=== PATIENT | male | born 1970 | race Caucasian/White ===

== ENCOUNTER 2020-07-14 18:32 | Emergency (ER) | payer SELFPAY ==
--- OUTSIDE RECORDS SUMMARY | 2020-07-14 18:34 | XMS REPORT | Summary of Care ---
:1970 Author Organization [address] [address] Care Team Providers Name Role Phone Pcp, Does Not Have A Primary Care Provider Reason for Visit Reason Comments Rx Concern/Question New THMP/ADAP application up loaded into [employer] for processing Encounter Details Date Type Department Care Team Description 07/10/2020 Case Management [facility] Beatriz Su MA Rx Concern/Question Infectious [address] [place] [address] (New THMP/ADA P Diseases- [place] [address] [place] [address] into [employer] for [address], [address] [place] [address] Allergies Active Allergy Reactions Severity Noted Date Comments Codeine Unknown - See comments 06/08/2018 Told as kid, do not recall reaction. documented as of this encounter (statuses as of 07/10/2020) Medications Medication Sig Dispensed Refills Start Date End Date Status mupirocin 2 % nasal Use 0.5 g in 10 Tube 0 11/16/2018 Active ointmentIndications: each nostril Staph skin infection every 12 (twelve) hours. cephALEXin (KEFLEX) 500 Take 1 capsule 56 capsule 0 12/28/2018 Active mg capsuleIndications: by mouth 4 Staph skin infection (four) times daily. mupirocin 2 % Apply to 22 g 3 02/08/2019 Activ e ointmentIndications: area(s) 3 Multiple wounds of skin (three) times daily. ATORVASTATIN 40 mg TAKE 1 TABLET 90 tablet 1 03/08/2019 Active tabletIndications: HIV BY MOUTH AT (human immunodeficiency BEDTIME. virus infection) qpdgpoqap-wueyeksa-rrywq Take 1 tablet 90 tablet 1 07/05/2019 Active ov ala (BIKTARVY) by mouth daily. 50-200-25 mg tabletIndications: Staph skin infection documented as of this encounter (statuses as of 07/10/2020) Active Problems Problem Noted Date HIV (human immunodeficiency virus infection) 8 HLD (hyperlipidemia) 06/07/2018 documented as of this encounter (statuses as of 07/10/2020) Immunizations Name Administration Dates Next Due Influenza Virus Vaccine Quad .5 mL IM 11/16/2018 6+ MO Influenza Virus Vaccine Quad IM 3+ 07/05/2019, 09/21/2018 (D eferred: YRS Vaccine Unavailable) Pneumococcal 13 Conjugate, PCV13 03/29/2019 (Prevnar 13) Pneumococcal Polysaccharide, PPSV23 07/05/2019 (PNEUMOVAX) TDAP 09/21/2018 Twinrix (hep a/hep b) 07/05/2019, 11/16/2018, 09/21/2018 documented as of this encounter Social History Tobacco Use Types Packs/Day Years Used Date Current Every Day Smoker 1 Smokeless Tobacco: Current User Alcohol Use Drinks/Week oz/Week Comments Yes 12 pack beer mon thly Sex Assigned at Date Recorded Not on file documented as of this encounter Last Filed Vital Signs Not on filedocumented in this encounter Progress Notes Beatriz Su MA - 07/10/2020 5:34 PM CDTMet with client in clinic to complete new THMP/ADAP application & obtained provider signature onnew medication certification form. Client's previous THMP assistance lapsed while he was incarcerated. Prepared, scanned & uploaded new emergency application into [employer] for processing. Updated spreadsheet & notified THMP of upload. A copy of the upload notice has been filed in client's [facility] case management chart. A total of 60 minutes was taken to complete this encounter. documented in this encounter Plan of Treatment Date Type Specialty Care Team Description 01/08/2021 Office Visit Infectious Disease Gregorio Hanna MD [address] [place] [address] [phone] Health Maintenance Due Date Last Done Comments COLON CANCER SCREENING ANNUAL 2018 FIT/FOBT COLON CANCER SCREENING FIT DNA EVERY 2018 3 YEARS COLON CANCER SCREENING SIGMOIDOSCOPY 2018 EVERY 5 YEARS COLONOSCOPY 2018 Colorectal Cancer Screening 2018 Zoster Recombinant Vaccine (SHINGRIX) 2018 (1 of 2) INFLUENZA VACCINE (#1) 2020 07/05/2019, 11/16/2018, 2018 Depression Screening 07/10/2021 07/10/2020 PNEUMOCOCCAL 0-64 YEARS COMBINED 07/05/2024 07/05/2019, SERIES (3 of 3 - PPSV23) DTaP,Tdap,and Td Vaccines (2 - Td) 09/21/2028 09/21/2018 documented as of this encounter Results Not on filedocumented in this encounter Insurance Payer Benefit Plan / Subscriber ID Effective Dates Phone Addre ss Type Group [facility]DC[facility] [id number] 2020-Present [address] [place] [address] documented as of this encounter
--- OUTSIDE RECORDS SUMMARY | 2020-07-14 18:34 | XMS REPORT | Summary of Care ---
:1970 Author Organization [address] [address] Care Team Providers Name Role Phone Pcp, Does Not Have A Primary Care Provider Reason for Visit Reason Comments Error Encounter Details Date Type Department Care Team Description 07/09/2020 Case Management [facility] Infectious Del Lina Rabago RN Error Diseases- [place] [phone] Allergies Active Allergy Reactions Severity Noted Date [...] MOUTH AT (human immunodeficiency BEDTIME. virus infection) rnpzqmoxn-qmaeyetx-zhbbn Take 1 tablet 90 tablet 1 07/05/2019 [...] oz/Week Comments Yes 12 pack beer mon [facility] Sex Assigned at Date Recorded Not on file documented as of this encounter Last Filed Vital Signs Not on filedocumented in this encounter Progress Notes Lina Phelps RN - 07/09/2020 3:12 PM CDTError documented in this encounter Plan of Treatment Date Type Specialty Care Team Description 01/08/2021 Office Visit Infectious Disease Gregorio Hanna MD [address] [place] [address] [phone] Health Maintenance Due Date Last Done [...] Effective Dates Phone Addre ss Type Group [facility] TDCJ [id number] 2020-Present [address] [place] [address] documented as of this encounter
--- OUTSIDE RECORDS SUMMARY | 2020-07-14 18:34 | XMS REPORT | Summary of Care ---
:1970 Author Organization [address] [address] Care Team Providers Name Role Phone Pcp, Does Not Have A Primary Care Provider Reason for Visit Reason Comments Case Management may require RW enrollment Encounter Details Date Type Department Care Team Description 07/09/2020 Case Management [facility] Del Hima, Lina Case Cecilio kumar (january Infectious R, RN require RW Diseases- [address] enrollment ) [facility] [address] [place] [address] Drive, [address]th Floor [place] [phone] Allergies Active Allergy Reactions Severity Noted Date Comments Codeine Unknown - See comments 06/08/2018 Told as kid, do not recall reaction. documented as of this encounter (statuses as of 07/09/2020) Medications Medication Sig Dispensed Refills Start Date [...] MOUTH AT (human immunodeficiency BEDTIME. virus infection) issubkqen-urgstzsz-kqgab Take 1 tablet 90 tablet 1 07/05/2019 Active ov ala (BIKTARVY) by mouth daily. 50-200-25 mg tabletIndications: Staph skin infection documented as of this encounter (statuses as of 07/09/2020) Active Problems Problem Noted Date HIV (human immunodeficiency virus infection) 8 HLD (hyperlipidemia) 06/07/2018 documented as of this encounter (statuses as of 07/09/2020) Immunizations Name Administration Dates Next Due Influenza [...] oz/Week Comments Yes 12 pack beer mon [facility] Sex Assigned at Date Recorded Not on file documented as of this encounter Last Filed Vital Signs Not on filedocumented in this encounter Progress Notes Lina Phelps RN - 07/09/2020 3:37 PM CDTChart review for potential case management needs. Former RW client has appointment on 07/10 and mayneed to be enrolled into the program again,that is, if he does not have current coverage. ID Scheduling informed of patient's current RW status. 30 min taken documented in this encounter Plan of Treatment Date Type Specialty Care Team Description 07/10/2020 Office Visit Infectious Disease Grady John MD [address] [place] [address]. [place] [phone] Gregorio Hanna MD [address] [place] [phone] Health Maintenance Due Date Last Done Comments COLON CANCER SCREENING ANNUAL 2018 FIT/FOBT COLON CANCER SCREENING FIT DNA EVERY 2018 3 YEARS COLON CANCER SCREENING SIGMOIDOSCOPY 2018 EVERY 5 YEARS COLONOSCOPY 2018 Colorectal Cancer Screening 2018 Zoster Recombinant Vaccine (SHINGRIX) 2018 (1 of 2) INFLUENZA VACCINE (#1) 2020 07/05/2019, 11/16/2018, 2018 Depression Screening 08/16/2020 08/16/2019 PNEUMOCOCCAL 0-64 YEARS COMBINED 07/05/2024 07/05/2019, SERIES (3 of 3 - PPSV23) DTaP,Tdap,and Td Vaccines (2 - Td) 09/21/2028 09/21/2018 documented as of this encounter Results Not on filedocumented in this encounter Insurance Payer Benefit Plan / Subscriber ID Effective Dates Phone Addre ss Type Group [facility] [place] [id number] 2020-Present [address] [place] [address] documented as of this encounter
--- OUTSIDE RECORDS SUMMARY | 2020-07-14 18:34 | XMS REPORT | Continuity of Care Document ---
:1970 Author Organization [facility] t Address [address] [place] [address] Care Team Providers Name Role Phone Aristides Engel MD Attending Clinician Problems This patient has no known problems. Allergies, Adverse Reactions, Alerts This patient has no known allergies or adverse reactions. Medications This patient has no known medications. Procedures This patient has no known procedures. Encounters Start End Encounter Admission Attending Care Care Encounter Source Date/Time Date/Time Type Type Clinicians Facility Department ID 2020-07-10 2020-07-11 Office [facility] [id number] 10:10:38 14:26:09 Visit Charles Engel [id number] [facility] [id number] Results This patient has no known results.
--- OUTSIDE RECORDS SUMMARY | 2020-07-14 18:34 | XMS REPORT | Summary of Care ---
:1970 Author Organization [address] [address] Care Team Providers Name Role Phone Pcp, Does Not Have A Primary Care Provider Reason for Visit Reason Comments Case Management Completed re-enrollment in [facility] & med adherence Encounter Details Date Type Department Care Team Description 07/10/2020 Case Management [facility] Beatriz Su MA Case Management Infectious [address] [place] [address] (Completed Diseases- [facility] [place] [address] [facility] & [address] med adherenc e) [facility] 6th [place] [phone] Allergies Active Allergy Reactions Severity Noted Date [...] MOUTH AT (human immunodeficiency BEDTIME. virus infection) wccklklie-dmkgqbur-twyck Take 1 tablet 90 tablet 1 07/05/2019 [...] oz/Week Comments Yes 12 pack beer mon ly Sex Assigned at Date Recorded Not on file documented as of this encounter Last Filed Vital Signs Not on filedocumented in this encounter Progress Notes Beatriz Su MA - 07/10/2020 3:09 PM CDTMet with client in clinic to complete re-enrollment in the [facility] [facility] program. He was released from [facility] on 06/02/2020, has not received any care since that date. Dicussed supporting documentation needed to complete the re-enrollment process, as well as the fact that [facility] program staff are working off-site due to the current national health crisis. Client provided proof of residency, but did not have proof of $0 income at this visit. He has no way to provide documents remotely, offered emergency re-enrollment as an alternative, no documentation required. Client provided current demographic & income information, along with marital status & household size. He has no form of health insurance at this time. Obtained client signatures on all consents& acknowledgement forms and provided him with my contact information for other helpful area agencies. He states that he completed re-enrollment with [facility] earlier this week. Completed emergency re-enrollment form based on information provided. Client has no medical case management needs, updatedacuity = 5, he will be re-enrolled as "open" case management status. Discussed medication adherence; client reports no missed doses during the past 3 days, no missed doses during the past 30 days. Client is 100% compliant with current medication regimen. He received the 3-pill regimen equivalent to Biktarvy while he was incarcerated. Clinic provider informed me that client should continue the Biktarvy as previously prescribed. Client was funded for medication through [employer] while he was incarcerated, he has approximately 10 days of medication remaining. He was previously funded for medication through [facility]/ADAP program, however that assistance lapsed while he was incarcerated. Advised that I would submit a new application to [facility] electronically later today, current processing time is 10-14 business days, assisted client with obtaining an additional 7 days of Biktarvy until his new application is approved. Provided my contact information should he need further assistance. Re-enrollment documents scanned to [facility] program community recreation coordinator for update. A total of 90 minutes was taken to complete this encounter. documented in this encounter Plan of Treatment Date Type Specialty Care Team Description 01/08/2021 Office Visit Infectious Disease Gregorio Hanna MD [address] [place] [address] [phone] Health Maintenance Due Date Last Done [...] Effective Dates Phone Addre ss Type Group [facility] TDC[facility] [id number] 2020-Present [address] [place] [address] documented as of this encounter
--- OUTSIDE RECORDS SUMMARY | 2020-07-14 18:34 | XMS REPORT | Summary of Care ---
:1970 Author Organization [facility] Address [address] [place] [address] Care Team Providers Name Role Phone Correction, Dept Of Primary Care Provider Encounter Details Date Type Department Care Team Description 04/28/2020 Hospital Encounter [facility] [phone] [place] [address] [phone] Allergies Active Allergy Reactions Severity Noted Date Comments Codeine Unknown - See comments 06/08/2018 Told as kid, do not recall reaction. documented as of this encounter (statuses as of 04/29/2020) Medications Medication Sig Dispensed Refills Start Date [...] MOUTH AT (human immunodeficiency BEDTIME. virus infection) bqqcwgzgk-deszuehq-dbmst Take 1 tablet 90 tablet 1 07/05/2019 Active ov ala (BIKTARVY) by mouth daily. 50-200-25 mg tabletIndications: Staph skin infection documented as of this encounter (statuses as of 04/29/2020) Active Problems Problem Noted Date HIV (human immunodeficiency virus infection) 8 HLD (hyperlipidemia) 06/07/2018 documented as of this encounter (statuses as of 04/29/2020) Immunizations Name Administration Dates Next Due Influenza [...] Signs Not on filedocumented in this encounter Plan of Treatment Health Maintenance Due Date Last Done Comments [...] 09/21/2028 09/21/2018 documented as of this encounter Procedures Procedure Name Priority Date/Time Associated Diagnosis Comme nts XR CHEST 1 VW Routine 04/28/2020 8:26 AM PPD positive Results for this CDT procedure are i n the results section . documented in this encounter Results XR CHEST 1 VW (04/28/2020 8:26 AM CDT) Specimen Narrative Performed At EXAM: XR CHEST 1 VW PACS/VR/DOSE HISTORY: PPD+ COMPARISON: None. FINDINGS: The heart and great vessels are normal and the lungs a re well expanded and clear. They show nothing to suggest acti ve pulmonary tuberculosis. Procedure Note [facility], Radiant Results Inft User - 2019 8:31 AM CDT EXAM: XR CHEST 1 VW HISTORY: PPD+ COMPARISON: None. FINDINGS: The heart and great vessels are normal a nd the lungs are well expanded and clear. They show nothing to suggest acti ve pulmonary tuberculosis. 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
--- OUTSIDE RECORDS SUMMARY | 2020-07-14 18:34 | XMS REPORT | Summary of Care ---
:1970 Author Organization [address] [address] Care Team Providers Name Role Phone Pcp, Does Not Have A Primary Care Provider Correction, Dept Of Primary Care Provider Reason for Visit Reason Comments Follow-up Encounter Details Date Type Department Care Team Description 02/15/2020 Telephone [facility] Infectious Lina Merritt RN Follow-up Diseases- [address] [place] [address], 6th [address] [place], [place] [phone] Allergies Active Allergy Reactions Severity Noted Date Comments Codeine Unknown - See comments 06/08/2018 Told as kid, do not recall reaction. documented as of this encounter (statuses as of 05/27/2020) Medications Medication Sig Dispensed Refills Start Date [...] MOUTH AT (human immunodeficiency BEDTIME. virus infection) xqhjbjxmq-mkqxnlft-fvfsy Take 1 tablet 90 tablet 1 07/05/2019 Active ov ala (BIKTARVY) by mouth daily. 50-200-25 mg tabletIndications: Staph skin infection documented as of this encounter (statuses as of 05/27/2020) Active Problems Problem Noted Date HIV (human immunodeficiency virus infection) 8 HLD (hyperlipidemia) 06/07/2018 documented as of this encounter (statuses as of 05/27/2020) Immunizations Name Administration Dates Next Due Influenza [...] oz/Week Comments Yes 12 pack beer mon [facility] Sex Assigned at Date Recorded Not on file documented as of this encounter Last Filed Vital Signs Not on filedocumented in this encounter Miscellaneous Notes Telephone Encounter - Henna Jack RN - 05/27/2020 1:57 AM CDTSummary: RW Closure 0n 03/12, verified client continues to be incarcerated with no release date. Account closed at this time with the [facility] [facility] due to non compliance with rules of the program for enrollment. Multiple attempts made to contact client and inform them of enrollment documents needed for continued enrollment in the [facility] [facility] and to schedule an appointment without success. Account closed at this time but client is welcome to reapply fo services if needed in the future. Appeal letter sent with program contact information to reapply for services if needed in the future. 30 min taken. elephone Encounter - Lina Merritt RN - 02/19/2020 11:35 AM CDTClient's mother called in response to letter sent to Adeel, who has been incarcerated [facility] since July. Mother states client has had a lot of vomiting and a significant weight loss. Mother instructed to advise Adeel to put in sick call to discuss this and get substitute meds for biktarvy which will end. Mother states will advise him, she will call back for any issues that remainfor which i will see how we can assist but not in charge of his care. [facility] funding closed, client can return to program after release from skilled nursing as long as eligibility criteria still met. 30 minutes involved. documented in this encounter Plan of Treatment Health [...]
--- OUTSIDE RECORDS SUMMARY | 2020-07-14 18:34 | XMS REPORT | Summary of Care ---
:1970 Author Organization [facility] Address [address] [place] [address] Care Team Providers Name Role Phone Pcp, Does Not Have A Primary Care Provider Reason for Visit Reason Comments LAB WORK Encounter Details Date Type Department Care Team Description 07/10/2020 Ice Cream Scooper Visit [facility] Elisabeth Hanna MD [address] [place] [phone] HIV infection, unspecified symptom statu s; Clinical Laboratory [facility]-Lab Positive PPD - [address] [place] [phone] Allergies Active Allergy Reactions Severity Noted Date [...] MOUTH AT (human immunodeficiency BEDTIME. virus infection) ufjuzwgur-imkberuh-knmck Take 1 tablet 90 tablet 1 07/05/2019 [...] Signs Not on filedocumented in this encounter Nursing Notes Princess Jeevan Ho - 07/10/2020 12:15 PM CDT Venipuncture collection performed by clean technique on the right anticubitus. Total of 1 attempts were made. Slight pressure and a bandage/dressing were applied to the site(s). The patient experiencedno complications. The following specimens were processed according to instructions and sent to [facility] laboratories per lab order on 07/10/2020: LT BLUE SST 1 RED LAV 2 PPT DK GREEN (LiHep) DK GREEN (SodH) ORTIZ DK BLUE (K2) DK BLUE (S) ACD Blood Culture NIPT/NTD documented in this encounter Plan of Treatment Date Type Specialty Care Team Description 01/08/2021 Office Visit Infectious Disease Gregorio Hanna MD [address] [place] [address] NIKIA Friend [phone] Name Type Priority Associated Diagnoses Date/Ti me CBC WITH DIFF LAB Routine HIV infection, 07/10/2020 1 2:13 PM CDT unspecified symptom status COMP. 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
--- OUTSIDE RECORDS SUMMARY | 2020-07-14 18:35 | XMS REPORT | Summary of Care ---
:1970 Author Organization [facility] - [facility] Address [address] [place] [address] Care Team Providers Name Role Phone Pcp, Does Not Have A Primary Care Provider Reason for Visit Reason Comments Follow-up Encounter Details Date Type Department Care Team Description 07/10/2020 Office Visit [facility] Yonatan John MD [address] [place] [address]. [place] [address] HIV infection, unspecified symptom statu s (Primary Dx); Infectious Diseases- Gregorio Hanna MD [address] [place] [phone] Positive PPD; [place] GERD without esophagitis; [facility] Staph skin infection [address] [facility], [address]th [place] [address] Allergies Active Allergy Reactions Severity Noted Date Comments Codeine Unknown - See comments 06/08/2018 Told as kid, do not recall reaction. documented as of this encounter (statuses as of 07/11/2020) Medications Medication Sig Dispensed Refills Start End Date Status Date mupirocin 2 % nasal Use 0.5 g in 10 Tube 0 Active ointmentIndications: each nostril 9 Staph skin infection every 12 (twelve) hours. cephALEXin (KEFLEX) Take 1 56 capsule 0 Active 500 mg capsule by 9 capsuleIndications: mouth 4 Staph skin infection (four) times daily. mupirocin 2 % Apply to 22 g 3 Active ointmentIndications: area(s) 3 9 Multiple wounds of (three) skin times daily. ATORVASTATIN 40 mg TAKE 1 90 tablet 1 A ctive tabletIndications: TABLET BY 9 HIV (human MOUTH AT immunodeficiency BEDTIME. virus infection) pantoprazole 20 mg EC Take 1 30 tablet 0 Active tabletIndications: tablet by 0 GERD without mouth daily esophagitis before breakfast. glafmgvvp-wnrxzbir-ni Take 1 90 tablet 1 Active nofov ala (BIKTARVY) tablet by 0 50-200-25 mg mouth daily. tabletIndications: Staph skin infection ktlrjkako-jqmdndjd-vn Take 1 90 tablet 1 07/11/20 Discontinued nofov ala (BIKTARVY) tablet by 9 20 (Reorder) 50-200-25 mg mouth daily. tabletIndications: Staph skin infection documented as of this encounter (statuses as of 07/11/2020) Active Problems Problem Noted Date HIV (human immunodeficiency virus infection) 8 HLD (hyperlipidemia) 06/07/2018 documented as of this encounter (statuses as of 07/11/2020) Immunizations Name Administration Dates Next Due Influenza [...] Day Smoker 1 Smokeless Tobacco: Current User Tobacco Cessation: Ready to Quit: No; Co unseling Given: Yes Alcohol Use Drinks/Week oz/Week Comments Yes 12 pack beer mon thly Sex Assigned at Date Recorded Not on file documented as of this encounter Last Filed Vital Signs Vital Sign Reading Time Taken Comments Blood Pressure 109/66 07/10/2020 10:29 AM CDT Pulse 74 07/10/2020 10:29 AM CDT Temperature 36.2 C (97.1 F) 07/10/2020 10:29 AM CDT Respiratory Rate 18 07/10/2020 10:29 AM CDT Oxygen Saturation - - Inhaled Oxygen Concentration - - Weight 88.2 kg (194 lb 8 oz) 07/10/2020 10:29 AM CDT Height 185.4 cm (6' 1") 07/10/2020 10:29 AM CDT Body Mass Index 25.66 07/10/2020 10:29 AM CDT documented in this encounter Progress Notes Gregorio Hanna MD - 07/10/2020 10:30 AM CDT Date of service: 07/10/2020 Visit Type: Established HIV Outpatient CC: "I need follow up for my HIV" HPI Adeel Antoine is a 49 year old male here today for HIV care. Was last seen in clinic 08/16/19. Interval history: Patient reports since last appoint has been incarcerated for 9 months in which he had been taking Tivicay with TDF and 3TC. Today reports otherwise is feeling well. Reports 100% compliance with Biktarvy since he left [facility]. No fever, chills, malaise, weight loss or other constitutional symptoms. No CP, SOB, cough, nausea, vomiting or diarrhea. No rashes, skin lesions or LAD. He does endorse some acid reflux. PMH: Past Medical History: Diagnosis Date HIV (human immunodeficiency virus infection) HLD (hyperlipidemia) MEDICATIONS Current Outpatient Medications on File Prior to Visit Medication Sig Dispense Refill xcjfqvmgv-dxdyaznz-qhdmprl ala (BIKTARVY) 50-200-25 mg tablet Take 1 tablet by mouth daily. 90 tablet 1 ATORVASTATIN 40 mg tablet TAKE 1 TABLET BY MOUTH AT BEDTIME. 90 tablet 1 mupirocin 2 % ointment Apply to area(s) 3 (three) times daily. 22 g 3 cephALEXin (KEFLEX) 500 mg capsule Take 1 capsule by mouth 4 (four) times daily. 56 capsule 0 mupirocin 2 % nasal ointment Use 0.5 g in each nostril every 12 (twelve) hours. 10 Tube 0 No current facility-administered medications on file prior to visit. ALLERGIES Allergies Allergen Reactions Codeine Unknown - See comments Told as kid, do not recall reaction. SOCIAL HISTORY Social History Socioeconomic History Marital status: Single Spouse name: Not on file Number of children: Not on file Years of education: Not on file Highest education level: Not on file Occupational History Not on file Social Needs Financial resource strain: Not on file Food insecurity Worry: Not on file Inability: Not on file Transportation needs Medical: Not on file Non-medical: Not on file Tobacco Use Smoking status: Current Every Day Smoker Packs/day: 1.00 Smokeless tobacco: Current User Substance and Sexual Activity Alcohol use: Yes Comment: 12 pack beer monthly Drug use: Yes Comment: previous IVDA with meth, shared needles, 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 Sexual activity: Not Currently Partners: Female Lifestyle Physical activity Days per week: Not on file Minutes per session: Not on file Stress: Not on file Relationships Social connections Talks on phone: Not on file Gets together: Not on file Attends moravian service: Not on file Active member of club or organization: Not on file Attends meetings of clubs or organizations: Not on file Relationship status: Not on file Intimate partner violence Fear of current or ex partner: Not on file Emotionally abused: Not on file Physically abused: Not on file Forced sexual activity: Not on file Other Topics Concern Not on file Social History Narrative Not on file FAMILY HISTORY No recent sick contacts or TB exposure PHYSICAL EXAM Constitutional: alert and oriented x 4, no apparent distress. BP 109/66 | Pulse 74 | Temp 36.2 C (97.1 F) (Oral) | Resp 18 | Ht 6' 1" (1.854 m) | Wt 194 lb 8 oz (88.2 kg) | BMI 25.66 kg/m Eyes: EOMI, PERRLA, anicteric sclerae. Moist pink conjunctivae ENT: mild pharyngeal erythema CV: RRR, S1, S2 normal; no murmurs, rubs or gallops Respiratory: clear to auscultation bilaterally, normal respiratory effort GI: abdomen soft; non-tender; non-distended; normoactive bowel sounds Musculoskeletal: normal gait and station. No digital clubbing or cyanosis Skin: warm and dry. No rash, lesions or ulcers Neuro: No focal deficits LABORATORY HIV 1 by Real-Time PCR (no units) Date Value 07/05/2019 Not Detected CD4 Absolute (Cells/L) Date Value 07/05/2019 766 12/28/2018 783 06/08/2018 911 WBC (10*3/L) Date Value 07/10/2020 7.52 HGB (g/dL) Date Value 07/10/2020 10.7 (L) PLT (10*3/L) Date Value 07/10/2020 177 CREATININE (mg/dL) Date Value 07/10/2020 0.87 GLUCOSE (mg/dL) Date Value 07/10/2020 105 ALT(SGPT) (U/L) Date Value 11/16/2018 40 ALTv (U/L) Date Value 07/10/2020 18 AST(SGOT) (U/L) Date Value 07/10/2020 26 ALK PHOS (U/L) Date Value 07/10/2020 110 CHOL (mg/dL) Date Value 07/05/2019 96 (L) TRIG (mg/dL) Date Value 07/05/2019 153 HAV Total (no units) Date Value 09/21/2018 Positive HCV Ab (no units) Date Value 06/08/2018 Negative HCV Semi-Quantitative (no units) Date Value 06/08/2018 0.03 No results found for: SYPG ASSESSMENT Adeel Antoine is a 49 year old male with the following problems: HIV infection, stable, adequate response to HAART, HIV viral load undetectable, will need to order new labs GERD Positive PPD An EKG was obtained due to patient reporting symptoms of reflux, EKG was within normal limits. Patient to talk to aerospace project manager for re-enrolling in [facility] today.Will refill Biktarvy, check CBC, CMP, CD4, HIV VL. Moreover, patient reportedly developed a positive PPD within this interval of time, and had a chest X ray that was unremarkable. Will order a Quantiferon and evaluate need for starting treatment for LTBI in case positive. Discussed with ID Faculty Dr. John. PLAN Continue Biktarvy (refilled today) Pantoprazole 20 mg PO qAM for 30 days CBC, CMP, HIV VL, CD4 Quantiferon Gold Reviewed labs from last month which are within normal limits. Instructed patient to contact clinic or return if any new problems Discussed importance of compliance with meds and follow up visits RTC in 3 months --- Gregorio Irving M.D. PGY-4, Infectious Diseases Pager: [phone] Jocelyne Shaikh MA - 07/10/2020 10:30 AM CDT 49 year old male has been identified by and name. Previous/Current Encounter Diagnosis: ICD-10-CM ICD-9-CM 1. Positive PPD R76.11 795.51 2. HIV infection, unspecified symptom status B20 V08 12 Lead EKG was performed as ordered. The patient tolerated the procedure well. Dr. Irving was notified and provided with a copy of the EKG for review. documented in this encounter Plan of Treatment Date Type Specialty Care Team Description 01/08/2021 Office Visit Infectious Disease Gregorio Hanna MD [address] [place] [phone] Name Type Priority Associated Diagnoses Date/Ti me CD4 SUBSET ASSAY LAB Routine HIV infection, unspecifi ed 07/10/2020 12:13 PM CDT symptom status HIV1 BY REAL-TIME PCR LAB Routine HIV infection, unsp ecified 07/10/2020 12:13 PM CDT QUANT symptom status QUANTIFERON-TB ASSAY LAB Routine Positive PPD 020 12:13 PM CDT Name Type Priority Associated Diagnoses Order S chedule CD4 SUBSET ASSAY LAB Routine HIV infection, unspecifi ed Expected: 07/10/2020, symptom status Expires: 06/13 HIV1 BY REAL-TIME PCR LAB Routine HIV infection, unsp ecified Expected: 07/10/2020, QUANT symptom status Expires: 06/13 QUANTIFERON-TB ASSAY LAB Routine Positive PPD Expecte d: 07/10/2020, Expires: 2020 Health Maintenance Due Date Last Done Comments [...] 09/21/2018 documented as of this encounter Results COMP. METABOLIC PANEL (55085) (07/10/2020 12:13 PM CDT) [facility] nature NA 140 135 - 145 [facility] mmol/L SERVICES K 4.3 3.5 - 5.0 [facility] mmol/L SERVICES CL 102 98 - 108 mmol/L [facility] SERVICES CO2 TOTAL 30 23 - 31 mmol/L [facility] AGAP 8 2 - 16 [facility] BUN 15 7 - 23 mg/dL [facility] GLUCOSE 105 70 - 110 mg/dL [facility] CREATININE 0.87 0.60 - 1.25 [facility] mg/dL SERVICES TOTAL BILI 1.5 (H) 0.1 - 1.1 mg/dL [facility] SERVICES CALCIUM 9.0 8.6 - 10.6 [facility] mg/dL SERVICES T PROTEIN 7.3 6.3 - 8.2 g/dL [facility] SERVICES ALBUMIN 4.3 3.5 - 5.0 g/dL [facility] ALK PHOS 110 34 - 122 U/L [facility] ALTv 18 5 - 50 U/L [facility] AST(SGOT) 26 13 - 40 U/L [facility] SERVICES eGFR Calculation 92.5 mL/min/1.73m2 [facility] (Non- SERVICES [place]e) eGFR Calculation 112.1 mL/min/1.73m2 [facility] () SERVICES Specimen Blood - ARM, RIGHT Narrative Performed At Association of Glomerular Filtration Rate (GFR) and St aging [facility] SERVICES of Kidney Disease* + + +------- ------ + | GFR (mL/min/1.73 m2) | With Kidney Damage | Wi thout Kidney Damage + + +------- ------ + | >90 | Stage one | Normal + + +------- ------ + | 60-89 | Stage two | Decreased GFR + + +------- ------ + | 30-59 | Stage three | Stage three + + +------- ------ + | 15-29 | Stage four | Stage four + + +------- ------ + | <15 (or dialysis) | Stage five | Stage five + + +------- ------ + *Each stage assumes the associated GFR level has been in effect for at least three months. Stages 1 to 5, wit h or without kidney disease, indicate chronic kidney disease. Notes: Determination of stages one and two (with eGFR >59mL/min/1.73 m2) requires estimation of kidney damag e for at least three months as defined by structural or func tional abnormalities of the kidney, manifested by either: Pathological abnormalities or Markers of kidney damage (including abnormalities in the composition of the blo od or urine or abnormalities in imaging tests) . Performing Organization Address City/State/Zipcode Phone Number [facility] CLIA: [id number] [place], [place] [id number] [address] [place] [address] CBC WITH DIFF (07/10/2020 12:13 PM CDT) Pathologist Sig nature WBC 7.52 4.20 - 10.70 [facility] 10*3/L SERVICES RBC 3.16 (L) 4.26 - 5.52 [facility] 10*6/L SERVICES HGB 10.7 (L) 12.2 - 16.4 [facility] g/dL SERVICES HCT 35.0 (L) 38.4 - 49.3 % [facility] MCV 110.8 (H) 81.7 - 95.6 fL [facility] MCH 33.9 (H) 26.1 - 32.7 pg [facility] MCHC 30.6 (L) 31.2 - 35.0 [facility] g/dL SERVICES RDW-SD 63.7 (H) 38.5 - 51.6 fL [facility] SERVICES RDW-CV 15.6 (H) 12.1 - 15.4 % [facility] PLT 177 150 - 328 [facility] 10*3/L SERVICES MPV 9.4 (L) 9.8 - 13.0 fL [facility] SERVICES NRBC/100 WBC 0.0 0.0 - 10.0 /100 [facility] WBCs SERVICES NRBC x10^3 <0.01 10*3/L [facility] SERVICES GRAN MAT (NEUT) % 62.0 % [facility] IMM GRAN % 0.40 % [facility] LYMPH % 25.4 % [facility] MONO % 9.8 % [facility] EOS % 2.0 % [facility] SERVICES BASO % 0.4 % [facility] GRAN MAT x10^3(ANC) 4.66 1.99 - 6.95 [facility] 10*3/uL SERVICES IMM GRAN x10^3 0.03 0.00 - 0.06 [facility] 10*3/uL SERVICES LYMPH x10^3 1.91 1.09 - 3.23 [facility] 10*3/uL SERVICES MONO x10^3 0.74 0.36 - 1.02 [facility] 10*3/uL SERVICES EOS x10^3 0.15 0.06 - 0.53 [facility] 10*3/uL SERVICES BASO x10^3 0.03 0.01 - 0.09 [facility] 10*3/uL SERVICES Specimen Blood - ARM, RIGHT Performing Organization Address City/State/Zipcode Phone Number [facility] CLIA: [id number] [place] [address] [place] [address] documented in this encounter Visit Diagnoses Diagnosis HIV infection, unspecified symptom statu s - Primary 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
--- OUTSIDE RECORDS SUMMARY | 2020-07-14 18:35 | XMS REPORT | Summary of Care ---
:1970 Author Organization [facility] - [facility] Address [address] [place] [address] Care Team Providers Name Role Phone Pcp, Does Not Have A Primary Care Provider Reason for Visit Reason Comments Follow-up Encounter Details Date Type Department Care Team Description 07/10/2020 Office Visit [facility] Yonatan John MD [address] [place] [address]. [place] [phone] HIV infection, unspecified symptom statu s (Primary Dx); Infectious Diseases- Grgeorio Hanna MD [address] [place] [phone] Positive PPD; [place] GERD without esophagitis; [facility] Staph skin infection [address] [facility], [address] [place] [address] Allergies Active Allergy Reactions Severity [...] GERD without mouth daily esophagitis before breakfast. oyocxftby-wukwisqa-ix Take 1 90 tablet 1 Active nofov ala (BIKTARVY) tablet by 0 50-200-25 mg mouth daily. tabletIndications: Staph skin infection rwylbekoe-qyamzsbb-en Take 1 90 tablet 1 07/11/20 Discontinued [...] 100% compliance with Biktarvy since he left [facility]. No fever, chills, malaise, weight loss or other constitutional symptoms. No CP, SOB, cough, nausea, vomiting or diarrhea. No rashes, skin lesions or LAD. He does endorse some acid reflux. PMH: Past Medical History: Diagnosis Date HIV (human immunodeficiency virus infection) HLD (hyperlipidemia) MEDICATIONS Current Outpatient Medications on File Prior to Visit Medication Sig Dispense Refill scpojvpzt-vkgyypea-dkqarmo ala (BIKTARVY) 50-200-25 mg tablet Take 1 [...] file Gets together: Not on file Attends christianity service: Not on file Active member of [...] within normal limits. Patient to talk to software developer manager for re-enrolling in [facility] today.Will refill Biktarvy, check CBC, CMP, [...] Gregorio Irving M.D. PGY-4, Infectious Diseases Pager: [phone] Jocelyne Shaikh MA - 07/10/2020 10:30 AM [...] Office Visit Infectious Disease Gregorio Hanna MD [address] [place] [phone] Name Type Priority Associated Diagnoses Date/Ti [...] of this encounter Results COMP. METABOLIC PANEL (79511) (07/10/2020 12:13 PM CDT) [facility] nature NA 140 135 - 145 [facility] mmol/L SERVICES K 4.3 3.5 - 5.0 [facility] mmol/L SERVICES CL 102 98 - 108 mmol/L [facility] SERVICES CO2 TOTAL 30 23 - 31 mmol/L [facility] SERVICES AGAP 8 2 - 16 [facility] SERVICES BUN 15 7 - 23 mg/dL [facility] SERVICES GLUCOSE 105 70 - 110 mg/dL [facility] CREATININE 0.87 0.60 - 1.25 [facility] mg/dL SERVICES TOTAL BILI 1.5 (H) 0.1 - 1.1 mg/dL [facility] SERVICES CALCIUM 9.0 8.6 - 10.6 [facility] mg/dL SERVICES T PROTEIN 7.3 6.3 - 8.2 g/dL [facility] SERVICES ALBUMIN 4.3 3.5 - 5.0 g/dL [facility] SERVICES ALK PHOS 110 34 - 122 U/L [facility] ALTv 18 5 - 50 U/L [facility] AST(SGOT) 26 13 - 40 U/L [facility] SERVICES eGFR Calculation 92.5 mL/min/1.73m2 [facility] (Non- SERVICES Indian) eGFR Calculation 112.1 mL/min/1.73m2 [facility] () SERVICES Specimen Blood - ARM, RIGHT Narrative Performed At Association of Glomerular Filtration Rate (GFR) and St aging [facility] of Kidney Disease* + [...] . Performing Organization Address City/State/Zipcode Phone Number [facility] CLIA: [id number] [place], [place] [id number] [address] [place] [address] CBC WITH DIFF (07/10/2020 12:13 PM CDT) [...] RIGHT Performing Organization Address City/State/Zipcode Phone Number [facility] CLIA: [id number] [place] [address] [place] [address] documented in this encounter Visit Diagnoses Diagnosis HIV infection, unspecified symptom statu s - Primary 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
--- OUTSIDE RECORDS SUMMARY | 2020-07-14 18:35 | XMS REPORT | Summary of Care ---
:[address] [facility] Address [address] [place] [id number] Care Team Providers Name Role Phone Pcp, Does Not Have A Primary Care Provider Reason for Visit Reason Comments Follow-up Encounter Details Date Type Department Care Team Description 07/10/2020 Office Visit [facility] Yonatan John MD [address] [place] [address]. [place] [address] HIV infection, unspecified symptom statu s (Primary Dx); Infectious Diseases- Gregorio Hanna MD [address] [place] [phone] Positive PPD; [place] GERD without esophagitis; [facility] Staph skin infection [address] [facility], [address]th [place] [address] Allergies Active Allergy Reactions Severity [...] GERD without mouth daily esophagitis before breakfast. azeidnpik-qowroqks-ly Take 1 90 tablet 1 Active nofov ala (BIKTARVY) tablet by 0 50-200-25 mg mouth daily. tabletIndications: Staph skin infection brfscdsbh-jguiisgp-ah Take 1 90 tablet 1 07/11/20 Discontinued [...] CDT documented in this encounter Progress Notes Yonatan John MD - 07/10/2020 10:30 AM CDTI personally examined the patient on 07/10/[address] Irving's note as written. I actively participated in the decision-making process. Please see the fellow's note for additional details. Gregorio Hanna MD - 07/10/2020 10:30 AM [...] 100% compliance with Biktarvy since he left [facility]. No fever, chills, malaise, weight loss or other constitutional symptoms. No CP, SOB, cough, nausea, vomiting or diarrhea. No rashes, skin lesions or LAD. He does endorse some acid reflux. PMH: Past Medical History: Diagnosis Date HIV (human immunodeficiency virus infection) HLD (hyperlipidemia) MEDICATIONS Current Outpatient Medications on File Prior to Visit Medication Sig Dispense Refill srnwlncbh-mqpnshsz-ypqgkpu ala (BIKTARVY) 50-200-25 mg tablet Take 1 [...] file Gets together: Not on file Attends restorationism service: Not on file Active member of [...] within normal limits. Patient to talk to manager willow for re-enrolling in [facility] today.Will refill Biktarvy, check CBC, CMP, CD4, [...] Gregorio Irving M.D. PGY-4, Infectious Diseases Pager: [phone] Jocelyne Shaikh MA - 07/10/2020 10:30 AM [...] EKG for review. documented in this encounter Miscellaneous Notes Addendum Note - Apolonia Mahoney RN - 07/10/2020 10:30 AM CDT Addended by: APOLONIA MAHONEY on: 07/11/2020 02:26 PM Modules accepted: Orders documented in this encounter Plan of Treatment Date Type Specialty Care Team Description 01/08/2021 Office Visit Infectious Disease Gregorio Hanna MD [address] [place] [phone] Name Type Priority Associated Diagnoses Date/Ti me HIV1 BY REAL-TIME PCR LAB Routine HIV infection, unsp ecified 07/10/2020 12:13 PM CDT QUANT symptom status [facility]ER[facility]-TB ASSAY LAB Routine Positive PPD 020 12:13 PM CDT Name Type Priority Associated Diagnoses Order S chedule HIV1 BY REAL-TIME LAB Routine HIV infection, Expected : PCR QUANT unspecified symptom 07/10/20 20, Expires: status 07/10/2021 [facility]ER[facility]-TB LAB Routine Positive PPD Expected: ASSAY 07/10/2020, Exp ires: 07/10/2021 EKG-12 LEAD ROUTINE HEART STATION Routine GERD without Ordered : 07/11/2020 esophagitis Health Maintenance Due Date Last Done Comments [...] 09/21/2018 documented as of this encounter Results CD4 SUBSET ASSAY (07/10/2020 12:13 PM CDT) Pathologist Sig nature CD4 % 42 31 - 60 % [facility] CD4 Absolute 846 410-1,590 Cells/L [facility] JERILYN Specimen Blood - ARM, RIGHT Performing Organization Address City/State/Zipcode Phone Number [facility] CLIA: [id number] [place] [address] [place] [address] COMP. METABOLIC PANEL (73739) (07/10/2020 12:13 PM CDT) Pathologist Sig nature NA 140 135 - 145 [facility] mmol/L SERVICES K 4.3 3.5 - 5.0 [facility] mmol/L SERVICES CL 102 98 - 108 mmol/L [facility] CO2 TOTAL 30 23 - 31 mmol/L [facility] AGAP 8 2 - 16 [facility] BUN 15 7 - 23 mg/dL [facility] GLUCOSE 105 70 - 110 mg/dL [facility] CREATININE 0.87 0.60 - 1.25 [facility] mg/dL SERVICES TOTAL BILI 1.5 (H) 0.1 - 1.1 mg/dL [facility] CALCIUM 9.0 8.6 - 10.6 [facility] mg/dL SERVICES T PROTEIN 7.3 6.3 - 8.2 g/dL [facility] ALBUMIN 4.3 3.5 - 5.0 g/dL [facility] ALK PHOS 110 34 - 122 U/L [facility] ALTv 18 5 - 50 U/L [facility] AST(SGOT) 26 13 - 40 U/L [facility] eGFR Calculation 92.5 mL/min/1.73m2 [facility] (Non- SERVICES [place]) eGFR Calculation 112.1 mL/min/1.73m2 [facility] () SERVICES Specimen Blood - ARM, RIGHT Narrative Performed At Association of Glomerular Filtration Rate (GFR) and St aging [facility] of Kidney Disease* + + [...] . Performing Organization Address City/State/Zipcode Phone Number [facility] CLIA: [id number] [place] [address] [place] [address] CBC WITH DIFF (07/10/2020 12:13 PM CDT) [facility] frannie WBC 7.52 4.20 - 10.70 [facility] 10*3/L SERVICES RBC 3.16 (L) 4.26 - 5.52 [facility] 10*6/L SERVICES HGB 10.7 (L) 12.2 [...] RIGHT Performing Organization Address City/State/Zipcode Phone Number [facility] CLIA: [id number] [place] [address] [place], [place] [address]vd documented in this encounter Visit Diagnoses Diagnosis HIV infection, unspecified symptom statu s - Primary 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
[2020-07-14] MEDS ORDERED: ONDANSETRON 4 MG/2 ML VIAL ONE (19:02)
[2020-07-14] MEDS ORDERED: MORPHINE 4 MG/ML SYR ONE (19:02)
[2020-07-14 19:16] LABS: Absolute Lymphocytes (CBC) 3.3 K/uL (0.7-4.9); Basophils % 0.5 % (0-1.3); Hematocrit 35.1 % (39.6-49.0); Lymphocytes % 36.3 % (15.3-44.8); MPV 7.7 fL (7.6-11.3); RBC Red Blood Cell Count 3.43 M/uL (4.33-5.43)
[2020-07-14] MEDS ORDERED: NA CHLORIDE 0.9% 1,000 ML ONE (19:24)
[2020-07-14] MEDS ORDERED: FENTANYL CITR 100 MCG/2 ML ONE (19:24)
[2020-07-14 19:27] LABS: Bilirubin Direct 0.1 mg/dL (0-0.2); Bilirubin Total 0.5 mg/dL (0.2-1.0); Potassium 4.1 mmol/L (3.5-5.1); Protein, Total 7.8 g/dL (6.4-8.2)
[2020-07-14] MEDS ORDERED: HYDROMORPHONE HCL 1 MG/ML INJ ONE (19:41)
[2020-07-14] MEDS ORDERED: KETOROLAC 30 MG/ML INJ ONE (19:41)
--- NOTE | 2020-07-14 20:18 | RAD REPORT ---
EXAM DESCRIPTION: CT - Stone Protocol - 07/14/2020 7:53 pm CLINICAL HISTORY: FLANK PAIN, right-sided with radiation into the right lower quadrant and right magdaleno in COMPARISON: <Comparisons> TECHNIQUE: Axial 5 mm thick images were obtained without oral or IV contrast. The akzpj-qw-mzvo span s the entirety of the system including uppermost abdomen and lung bases. All CT scans are performed using dose optimization technique as appropriate and may include automated exposure control or mA/KV adjustment according to patient size. FINDINGS: Hydronephrosis of the right pelvis and calices present rddo-dw-mrgtwbrp in severity. There is dilatation of the right proximal ureter. In the right mid ureter approximately L4 level there is faint 2 millimeter area of mineralization less dense than typically seen for a ureteral calculus. Dis jozef to this area there is no hydronephrosis. No nonobstructing calculi seen. No suspicious renal mass es. Isodense masses and pyelonephritis are not excluded on a stone protocol CT scan. No significant a drenal finding. No urinary bladder suspicious finding. Imaged portions of the liver, spleen and pancreas show no suspicious findings on non-contrast imaging . No gallbladder or biliary tree abnormality identified. No suspicious bowel findings. Appendectomy clips are present. No active bowel process. No hernia, mass or bulky lymphadenopathy noted. No free air, free fluid or inflammatory stranding. No significant bony abnormality. IMPRESSION: Mild to moderate hydronephrosis of the pelvis, calices and proximal ureter down to appro ximately L4 level. No dense stone identified. There is faint 2 millimeter area of mineralization or increased density in the ureter likely source of obstruction. This could be a faint kidney stone or possibly inflammatory debris or blood. Isodense masses and pyelonephritis are not excluded on stone protocol technique.
[2020-07-14 20:53] LABS: Urine Bacteria <20 /HPF (NONE SEEN); Urine Culture Reflex Order NOT NEEDED; Urine Mucus 1+ /HPF (NONE SEEN); Urine RBC 20-50 /HPF (NONE SEEN)
[2020-07-14 20:53] LABS: Urine Blood 3+ (NEG); Urine Glucose NEGATIVE (NEG); Urine Protein NEGATIVE (NEG); Urine Specific Gravity >1.030 (1.005-1.030)
--- NOTE | 2020-07-14 21:06 | EDPHYS ---
Physician Documentation [facility] Name: Adeel Antoine Age: 50 yrs Sex: Male : 1970 Arrival Date: 07/14/2020 Time: 18:34 Bed 8 Private MD: ED Physician Osvaldo Rudolph HPI: 07/14 18:49 This 50 yrs old Male presents to ER via Wheelchair with complaints of pm1 Abdominal Pain, Groin Pain. 18:49 The patient presents with pain that is acute, with no known mechanism of injury. The pm1 symptoms are located in the right flank pain. Onset: The symptoms/episode began/occurred today. right groin. Associated signs and symptoms: Pertinent positives: nausea, vomiting, Pertinent negatives: chest pain, dysuria, fever, urinary retention, shortness of breath. The problem was sustained from unknown cause. Modifying factors: The patient symptoms are alleviated by nothing, the patient symptoms are aggravated by nothing. Severity of symptoms: in the emergency department the symptoms are actually worse. The patient has not experienced similar symptoms in the past. Historical: - Allergies: 18:43 No Known Allergies; sv - PMHx: 18:43 HIV; sv - Immunization history:: Adult Immunizations unknown. - Social history:: Smoking status: Patient reports the use of cigarette tobacco products, unknown amount. ROS: 18:49 Constitutional: Negative for fever, chills, and weight loss, Cardiovascular: Negative pm1 for chest pain, palpitations, and edema, Respiratory: Negative for shortness of breath, cough, wheezing, and pleuritic chest pain. 18:49 : Negative for injury, bleeding, discharge, and swelling, MS/Extremity: Negative for injury and deformity, Skin: Negative for injury, rash, and discoloration, Neuro: Negative for headache, weakness, numbness, tingling, and seizure. 18:49 Abdomen/GI: Positive for nausea and vomiting, Negative for diarrhea. 18:49 Back: Positive for flank pain, on the right. Exam: 18:49 Constitutional: This is a well developed, well nourished patient who is awake, alert, pm1 and in no acute distress. Head/Face: Normocephalic, atraumatic. 18:49 Abdomen/GI: Soft, non-tender, with normal bowel sounds. No distension or tympany. No guarding or rebound. No evidence of tenderness throughout. 18:49 Skin: Warm, dry with normal turgor. Normal color with no rashes, no lesions, and no evidence of cellulitis. MS/ Extremity: Pulses equal, no cyanosis. Neurovascular intact. Full, normal range of motion. 18:49 Cardiovascular: Exam negative for acute changes, Rate: normal, Rhythm: regular, Pulses: no pulse deficits are appreciated. 18:49 Respiratory: Exam negative for acute changes, respiratory distress, shortness of breath. 18:49 Back: CVA tenderness, that is moderate, is noted on the right. 18:49 Neuro: Exam negative for acute changes, Orientation: is normal, Mentation: is normal, Motor: is normal, moves all fours. Vital Signs: 18:47 BP 144 / 97; Pulse 86; Resp 30; Pulse Ox 100% ; sv 20:10 BP 106 / 68; Pulse 63; Resp 16; Pulse Ox 95% ; Pain 3/10; wh 21:25 BP 141 / 92; Pulse 80; Resp 18; Pulse Ox 95% on R/A; Pain 0/10; wh MDM: 18:46 Patient medically screened. [facility] 21:05 Data reviewed: vital signs. Data interpreted: Pulse oximetry: on room air is 95 %. pm1 Interpretation: normal. 21:05 Counseling: I had a detailed discussion with the patient and/or guardian regarding: the pm1 historical points, exam findings, and any diagnostic results supporting the discharge/admit diagnosis, lab results, radiology results, the need for outpatient follow up, a urologist, to return to the emergency department if symptoms worsen or persist or if there are any questions or concerns that arise at home. 21:20 ED course: Patient 0/10 pain and is happy with the care received. Therefore will pm1 discharge to home. 07/14 18:49 Order name: Basic Metabolic Panel; Complete Time: 19:39 pm1 07/14 18:49 Order name: CBC with Diff; Complete Time: 19:25 pm1 07/14 18:49 Order name: Hepatic Function; Complete Time: 19:39 pm1 07/14 18:49 Order name: Lipase; Complete Time: 19:39 pm1 07/14 18:49 Order name: Urine Microscopic Only; Complete Time: 21:05 pm1 07/14 20:46 Order name: Urine Dipstick--Ancillary (enter results); Complete Time: 21:05 mw2 07/14 18:49 Order name: CT Stone Protocol; Complete Time: 20:25 pm1 07/14 18:49 Order name: IV Saline Lock; Complete Time: 18:51 pm1 07/14 18:49 Order name: Labs collected and sent; Complete Time: 18:51 pm1 07/14 18:49 Order name: Urine Dipstick-Ancillary (obtain specimen); Complete Time: 20:44 pm1 Administered Medications: 18:51 Drug: Zofran (Ondansetron) 4 mg Route: IVP; Site: right forearm; em 19:18 Follow up: Response: No adverse reaction; Nausea is decreased 18:52 Drug: morphine 4 mg Route: IVP; Site: right forearm; em 19:17 Follow up: Response: No adverse reaction; Pain is unchanged, physician notified; RASS: Alert and Calm (0) 19:17 Drug: NS 0.9% 1000 ml Route: IV; Rate: 1000 ml; Site: right forearm; wh 20:43 Follow up: Response: No adverse reaction; IV Status: Completed infusion 19:17 Drug: fentaNYL (PF) 50 mcg Route: IVP; Site: right forearm; wh 20:43 Follow up: Response: No adverse reaction; Pain is decreased; RASS: Alert and Calm (0) 19:31 Drug: TORadol 30 mg Route: IVP; Site: right forearm; rv 20:43 Follow up: Response: No adverse reaction; Pain is decreased 19:32 Drug: Dilaudid 1 mg {Note: rass 0.} Route: IVP; Site: right forearm; rv 20:43 Follow up: Response: No adverse reaction; Pain is decreased; RASS: Alert and Calm (0) 21:23 Drug: Flomax 0.4 mg Route: PO; 21:24 Follow up: Response: No adverse reaction 21:24 Drug: Cipro 500 mg Route: PO; 21:25 Follow up: Response: No adverse reaction Disposition: 07/15 06:24 Co-signature as Attending Physician, Osvaldo GORE I agree with the assessment and nichole plan of care. Disposition: 07/14/20 21:06 Discharged to Home. Impression: Hydronephrosis with renal and ureteral calculous obstruction. - Condition is Stable. - Discharge Instructions: Kidney Stones, Dietary Guidelines to Help Prevent Kidney Stones. - Prescriptions for Zofran ODT 4 mg Oral tablet,disintegrating - place 1 tablet by TRANSLINGUAL route every 8 hours As needed; 12 tablet. Tylenol- Codeine #3 300-30 mg Oral Tablet - take 2 tablets by ORAL route every 6 hours As needed; 20 tablet. Flomax 0.4 mg Oral Capsule, Sust. Release 24 hr - take 1 capsule by ORAL route once daily 1/2 hour following the same meal each day; 10 capsule. Cipro 500 mg Oral Tablet - take 1 tablet by ORAL route every 12 hours for 7 days; 14 tablet. - Medication Reconciliation Form, Thank You Letter, Antibiotic Education, Prescription Opioid Use form. - Follow up: Emergency Department; When: As needed; Reason: Worsening of condition. Follow up: Private Physician; When: 2 - 3 days; Reason: Recheck today's complaints, Continuance of care, Re-evaluation by your physician. Follow up: Igor Hollis MD; When: 2 - 3 days; Reason: Recheck today's complaints, Continuance of care, Re-evaluation by your physician. - Problem is new. - Symptoms have improved. 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 Impression: Hydronephrosis with renal and pm1 ureteral calculous obstruction. Condition is Stable. Forms are Medication Reconciliation Form, Thank You Letter, Antibiotic Education, Prescription Opioid Use. Follow up: Emergency Department; When: As needed; Reason: Worsening of condition. Follow up: Private Physician; When: 2 - 3 days; Reason: Recheck today's complaints, Continuance of care, Re-evaluation by your physician. Problem is new. Symptoms have improved. pm1 21:27 21:07 07/14/2020 21:06 Discharged to Home. Impression: Hydronephrosis with renal and wh ureteral calculous obstruction. Condition is Stable. Discharge Instructions: Kidney Stones, Dietary Guidelines to Help Prevent Kidney Stones. Forms are Medication Reconciliation Form, Thank You Letter, Antibiotic Education, Prescription Opioid Use. Follow up: Emergency Department; When: As needed; Reason: Worsening of condition. Follow up: Private Physician; When: 2 - 3 days; Reason: Recheck today's complaints, Continuance of care, Re-evaluation by your physician. Follow up: Igor Hollis; When: 2 - 3 days; Reason: Recheck today's complaints, Continuance of care, Re-evaluation by your physician. Problem is new. Symptoms have improved. pm1
--- NOTE | 2020-07-14 21:06 | ER ---
Nurse's Notes [facility] Name: Adele Antoine Age: 50 yrs Sex: Male : 1970 Arrival Date: 07/14/2020 Time: 18:34 Bed 8 Private MD: Diagnosis: Hydronephrosis with renal and ureteral calculous obstruction Presentation: 07/14 18:43 Chief complaint: Patient states: right flank pain with radiation to the RLQ and right sv groin. Coronavirus screen: Client denies travel out of the [place] in the last 14 days. At this time, the client does not indicate any symptoms associated with coronavirus-19. Ebola Screen: No symptoms or risks identified at this time. Risk Assessment: Do you want to hurt yourself or someone else? Patient reports no desire to harm self or others. Onset of symptoms was July 14, 2020. 18:43 Method Of Arrival: Wheelchair sv 18:43 Acuity: JEREMIAS 2 sv 19:15 Initial Sepsis Screen: Does the patient meet any 2 criteria? No. Patient's initial sepsis screen is negative. Does the patient have a suspected source of infection? Yes: Acute abdominal pain. Triage Assessment: 18:43 General: Appears in no apparent distress. uncomfortable, Behavior is cooperative, sv appropriate for age, restless. Neuro: Level of Consciousness is awake, alert, obeys commands, Gait is steady. Respiratory: Respiratory effort is even, unlabored. Historical: - Allergies: 18:43 No Known Allergies; sv - PMHx: 18:43 HIV; sv - Immunization history:: Adult Immunizations unknown. - Social history:: Smoking status: Patient reports the use of cigarette tobacco products, unknown amount. Screenin:52 Abuse screen: Denies threats or abuse. Nutritional screening: No deficits noted. em Tuberculosis screening: No symptoms or risk factors identified. Fall Risk None identified. Assessment: 19:15 General: Appears uncomfortable, Behavior is listless. Pain: Complains of pain in right wh low back Pain radiates to right lower quadrant Pain currently is 9 out of 10 on a pain scale. Neuro: Level of Consciousness is awake, alert, obeys commands, Oriented to person, place, time, situation, Appropriate for age. Cardiovascular: Heart tones S1 S2. Respiratory: Airway is patent Respiratory effort is even, unlabored, Respiratory pattern is regular, symmetrical, Breath sounds are clear bilaterally. GI: Abdomen is flat, non-distended, Bowel sounds present X 4 quads. Abd is soft Abdomen is tender to palpation Reports lower abdominal pain. : No signs and/or symptoms were reported regarding the genitourinary system. EENT: No signs and/or symptoms were reported regarding the EENT system. Derm: Skin is intact, is healthy with good turgor, Skin is pink, warm \T\ dry. normal. Musculoskeletal: Circulation, motion, and sensation intact. 20:00 Reassessment: Patient appears in no apparent distress at this time. No changes from previously documented assessment. Patient and/or family updated on plan of care and expected duration. Pain level reassessed. Patient is alert, oriented x 3, equal unlabored respirations, skin warm/dry/pink. 21:05 Reassessment: Patient appears in no apparent distress at this time. Patient and/or family updated on plan of care and expected duration. Pain level reassessed. Patient is alert, oriented x 3, equal unlabored respirations, skin warm/dry/pink. Patient states feeling better. Patient states symptoms have improved. Vital Signs: 18:47 BP 144 / 97; Pulse 86; Resp 30; Pulse Ox 100% ; sv 20:10 BP 106 / 68; Pulse 63; Resp 16; Pulse Ox 95% ; Pain 3/10; wh 21:25 BP 141 / 92; Pulse 80; Resp 18; Pulse Ox 95% on R/A; Pain 0/10; ED Course: 18:34 Patient arrived in ED. mr 18:40 Liam Zendejas RN is Primary Nurse. em 18:43 Percy Contreras NP is PHCP. pm1 18:43 Osvaldo Rudolph MD is Attending Physician. pm1 18:43 Triage completed. sv 18:43 Arm band placed on. sv 18:50 Initial lab(s) drawn, by me, sent to lab. Inserted saline lock: 20 gauge in right em antecubital area, using aseptic technique. Blood collected. 18:52 Patient has correct armband on for positive identification. Placed in gown. Bed in low em position. Call light in reach. Pulse ox on. NIBP on. 19:34 Primary Nurse role handed off by Liam Zendejas, RN mw2 19:48 Laura Pascual is Primary Nurse. 19:53 CT Stone Protocol In Process Unspecified. EDMS 21:07 Igor Hollis MD is Referral Physician. pm1 21:26 No provider procedures requiring assistance completed. IV discontinued, intact, wh bleeding controlled, No redness/swelling at site. Administered Medications: 18:51 Drug: Zofran (Ondansetron) 4 mg Route: IVP; Site: right forearm; em 19:18 Follow up: Response: No adverse reaction; Nausea is decreased 18:52 Drug: morphine 4 mg Route: IVP; Site: right forearm; em 19:17 Follow up: Response: No adverse reaction; Pain is unchanged, physician notified; RASS: Alert and Calm (0) 19:17 Drug: NS 0.9% 1000 ml Route: IV; Rate: 1000 ml; Site: right forearm; wh 20:43 Follow up: Response: No adverse reaction; IV Status: Completed infusion 19:17 Drug: fentaNYL (PF) 50 mcg Route: IVP; Site: right forearm; 20:43 Follow up: Response: No adverse reaction; Pain is decreased; RASS: Alert and Calm (0) 19:31 Drug: TORadol 30 mg Route: IVP; Site: right forearm; rv 20:43 Follow up: Response: No adverse reaction; Pain is decreased 19:32 Drug: Dilaudid 1 mg {Note: rass 0.} Route: IVP; Site: right forearm; rv 20:43 Follow up: Response: No adverse reaction; Pain is decreased; RASS: Alert and Calm (0) 21:23 Drug: Flomax 0.4 mg Route: PO; 21:24 Follow up: Response: No adverse reaction 21:24 Drug: Cipro 500 mg Route: PO; 21:25 Follow up: Response: No adverse reaction Outcome: 21:06 Discharge ordered by . pm1 21:26 Discharged to home ambulatory, with family. 21:26 Condition: stable 21:26 Discharge instructions given to patient, family, Instructed on discharge instructions, follow up and referral plans. no drinking with medication, no driving heavy equipment, medication usage, urine strainer, POC Demonstrated understanding of instructions, follow-up care, medications, POC Prescriptions given X 4. 21:27 Patient left the ED. Signatures: Dispatcher [employer] EDMS Elmo Curtisie, RN CLARA mann Cyn Rosales mr ZendejasLiam RN RN em Marinas, Patrick, LAKSHMI JANITOR CUSTODIAN pm1 Laura Pascual Marlene, Eduardo mw2 Greg Guillermo RN RN rv Corrections: (The following items were deleted from the chart) 21:25 20:10 BP 106 / 68; Pulse 63bpm; Resp 16bpm; Pulse Ox 95%; [facility]
[2020-07-14] MEDS ORDERED: TAMSULOSIN 0.4 MG SR CAP ONE (21:28)
[2020-07-14] MEDS ORDERED: CIPROFLOXACIN HCL 500 MG TAB ONE (21:28)
[2020-07-14 21:40] VITALS: O2SAT 95
[2020-07-14 21:41] VITALS: BP 141/92
== END 2020-07-14 21:27 | disposition home or self-care (01) ==
LOC: ER 18:32
DX: N13.2 Hydronephrosis with renal and ureteral calculous obstruction (principal); F17.290 Nicotine dependence, other tobacco product, uncomplicated
CPT/HCPCS: 36415; 74176; 76377; 80048; 80076; 81003; 81015; 83690; 85025; 96361; 96374; 96375; 99284; J1170; J2405; J3010; J7030

== ENCOUNTER 2020-09-22 01:41 | Emergency (ER) | payer SELFPAY ==
--- OUTSIDE RECORDS SUMMARY | 2020-09-22 01:44 | XMS REPORT | Summary of Care ---
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 virus infection) gzzemaxbd-rxdglgao-gamqi Take 1 tablet 90 tablet 1 07/05/2019 [...] processed according to instructions and sent to [facility] laboratories per lab order on 07/10/2020: LT BLUE SST 1 RED LAV 2 PPT DK GREEN (LiHep) DK GREEN (SodH) ORTIZ DK BLUE (K2) DK BLUE (S) ACD Blood Culture NIPT/NTD documented in this encounter Plan of Treatment Date Type Specialty Care Team Description 01/08/2021 Office Visit Infectious Disease Gregorio Hanna MD [address] [place] [address] NIKIA Friend 77 [phone] Name Type Priority Associated Diagnoses Date/Ti me CBC WITH DIFF LAB Routine HIV infection, 07/10/2020 1 2:13 PM CDT unspecified symptom status COMP. METABOLIC PANEL LAB Routine HIV infection, 06/13 12:13 PM CDT (29838) unspecified symptom status CD4 SUBSET ASSAY LAB [...]
--- OUTSIDE RECORDS SUMMARY | 2020-09-22 01:44 | XMS REPORT | Summary of Care ---
:1970 Author Organization [address] [address] Care Team Providers Name Role Phone Pcp, Does Not Have A Primary Care Provider Reason for Visit Reason Comments Error Encounter Details Date Type Department Care Team Description 07/09/2020 Case Management [facility] Infectious Del Lina Rabago RN Error Diseases- [place] [phone] Allergies Active Allergy Reactions Severity Noted Date [...] MOUTH AT (human immunodeficiency BEDTIME. virus infection) silbceucv-fwkhmdwt-jtjjj Take 1 tablet 90 tablet 1 07/05/2019 [...] oz/Week Comments Yes 12 pack beer mon [facility] Sex Assigned at Date Recorded Not on file documented as of this encounter Last Filed Vital Signs Not on filedocumented in this encounter Progress Notes Lina Phelps RN - 07/09/2020 3:12 PM CDTError documented in this encounter Plan of Treatment Date Type Specialty Care Team Description 01/08/2021 Office Visit Infectious Disease Gregorio Hanna MD [address] [place] [phone] Health Maintenance Due Date Last Done [...] Effective Dates Phone Addre ss Type Group [facility] [id number] 2020-Present [address] [place] [address] documented as of this encounter
--- OUTSIDE RECORDS SUMMARY | 2020-09-22 01:44 | XMS REPORT | Summary of Care ---
:1970 Author Organization [address] [address] Care Team Providers Name Role Phone Pcp, Does Not Have A Primary Care Provider Reason for Visit Reason Comments Case Management may require RW enrollment Encounter Details Date Type Department Care Team Description 07/09/2020 Case Management [facility] Del Hima, Lina Case Cecilio kumar (january Infectious R, RN require RW Diseases- [address] enrollment ) [facility]ly [facility], [facility] [address] [place] [address] Drive, 6th Floor [place] [phone] Allergies Active Allergy Reactions Severity Noted Date [...] MOUTH AT (human immunodeficiency BEDTIME. virus infection) ogpensipr-zfhyzlkb-dfcpu Take 1 tablet 90 tablet 1 07/05/2019 [...] oz/Week Comments Yes 12 pack beer mon [facility] Sex Assigned at Date Recorded Not [...] Office Visit Infectious Disease Grady John MD [address] [place] [address]. [place] [phone] Gregorio Hanna MD [address] [place] [phone] Health Maintenance Due Date Last Done [...] Effective Dates Phone Addre ss Type Group [facility] TDC[facility] [id number] 2020-Present [address] [place] [address] documented as of this encounter
--- OUTSIDE RECORDS SUMMARY | 2020-09-22 01:44 | XMS REPORT | Continuity of Care Document ---
:1970 Author Organization [facility] t Address [address] [place] [address] Care Team Providers Name Role Phone Zheng TEIXEIRA Attending Clinician Aristides Engel MD Attending Clinician Problems This patient has no known problems. Allergies, Adverse Reactions, Alerts This patient has no known allergies or adverse reactions. Medications This patient has no known medications. Procedures This patient has no known procedures. Encounters Start End Encounter Admission Attending Care Care Encounter Source Date/Time Date/Time Type Type Clinicians Facility Department ID 2020-09-04 2020-09-04 Patient GWEN Calzada [id number] 00:00:00 00:00:00 Secure [facility] [id number] [facility] [id number] 2020-08-21 2020-08-21 Office Irvingchristopher CAMPOVERDE [id number] 10:54:20 11:58:50 Visit [facility] [id number] [facility] [id number] Results This patient has no known results.
--- OUTSIDE RECORDS SUMMARY | 2020-09-22 01:45 | XMS REPORT | Summary of Care ---
:1970 Author Organization [address] [address] Care Team Providers Name Role Phone Pcp, Does Not Have A Primary Care Provider Reason for Visit Reason Comments Rx Concern/Question New [facility]/ADAP application up loaded into [employer] for processing Encounter Details Date Type Department Care Team Description 07/10/2020 Case Management [facility] Beatriz Su MA Rx Concern/Question Infectious [address] [place] [address] (New [facility]/ADA P Diseases- [place] [address] [place] [address] into [employer] for [address]) [address], [address] [place] [address] Allergies Active Allergy Reactions Severity [...] MOUTH AT (human immunodeficiency BEDTIME. virus infection) tlpjrbulv-dtqseboh-mzkne Take 1 tablet 90 tablet 1 07/05/2019 [...] scanned & uploaded new emergency application into [employer] for processing. Updated spreadsheet & notified [employer] of upload. A copy of the upload notice has been filed in client's [facility] case management chart. A total of 60 minutes was taken to complete this encounter. documented in this encounter Plan of Treatment Date Type Specialty Care Team Description 01/08/2021 Office Visit Infectious Disease Gregorio Hanna MD [address] [place] [phone] Health Maintenance Due Date Last Done [...] Effective Dates Phone Addre ss Type Group [facility] [id number] 2020-Present [address] [place] [address] documented as of this encounter
--- OUTSIDE RECORDS SUMMARY | 2020-09-22 01:45 | XMS REPORT | Summary of Care ---
:1970 Author Organization [address] [address] Care Team Providers Name Role Phone Pcp, Does Not Have A Primary Care Provider Reason for Visit Reason Comments Case Management Completed re-enrollment in [facility] program & med adherence Encounter Details Date Type Department Care Team Description 07/10/2020 Case Management [facility] Beatriz Su MA Case Management Infectious [address] [place] [address] (Completed Diseases- [facility] [place] [address] [facility] program & [address] med adherenc e) [facility], 6th [place] [phone] Allergies Active Allergy Reactions Severity Noted Date [...] MOUTH AT (human immunodeficiency BEDTIME. virus infection) ftcvsbnqc-hxuxdpwf-wumuf Take 1 tablet 90 tablet 1 07/05/2019 [...] [facility] program. He was released from [facility] on 06/02/2020, has not received any care since that date. Dicussed supporting documentation needed to complete the re-enrollment process, as well as the fact that [facility] program staff are working off-site due to [...] prescribed. Client was funded for medication through [employer] while he was incarcerated, he has approximately 10 days of medication remaining. He was previously funded for medication through [facility]/ADAP program, however that assistance lapsed while he was incarcerated. Advised that I would submit a new application to [facility] electronically later today, current processing time is 10-14 business days, assisted client with obtaining an additional 7 days of Biktarvy until his new application is approved. Provided my contact information should he need further assistance. Re-enrollment documents scanned to [facility] program venue coordinator for update. A total of 90 minutes was taken to complete this encounter. documented in this encounter Plan of Treatment Date Type Specialty Care Team Description 01/08/2021 Office Visit Infectious Disease Gregorio Hanna MD [address] [place] [address] [phone] Health Maintenance Due Date Last [...] Effective Dates Phone Addre ss Type Group [facility] [id number] 2020-Present [address] [place] [address] documented as of this encounter
--- OUTSIDE RECORDS SUMMARY | 2020-09-22 01:45 | XMS REPORT | Summary of Care ---
:1970 Author Organization [facility] Address [address] [place] [address] Care Team Providers Name Role Phone Pcp, Does Not Have A Primary Care Provider Reason for Visit Reason Comments Follow-up Encounter Details Date Type Department Care Team Description 07/10/2020 Office Visit [facility] Yonatan John MD [address] [place] [address]. [place] [phone] HIV infection, unspecified symptom statu s (Primary Dx); Infectious Diseases- Gregorio Hanna MD [address] [place] [phone] Positive PPD; [place] GERD without esophagitis; [facility] Clinics Staph skin infection [facility], 6th [place] [phone] Allergies Active Allergy Reactions Severity [...] GERD without mouth daily esophagitis before breakfast. twvpysnvi-wugqlakv-kv Take 1 90 tablet 1 Active nofov ala (BIKTARVY) tablet by 0 50-200-25 mg mouth daily. tabletIndications: Staph skin infection udztighxn-xwogwnui-kp Take 1 90 tablet 1 07/11/20 Discontinued [...] 100% compliance with Biktarvy since he left [facility]. No fever, chills, malaise, weight loss or other constitutional symptoms. No CP, SOB, cough, nausea, vomiting or diarrhea. No rashes, skin lesions or LAD. He does endorse some acid reflux. PMH: Past Medical History: Diagnosis Date HIV (human immunodeficiency virus infection) HLD (hyperlipidemia) MEDICATIONS Current Outpatient Medications on File Prior to Visit Medication Sig Dispense Refill seeweptdc-pyqppikh-vieabwt ala (BIKTARVY) 50-200-25 mg tablet Take 1 [...] file Gets together: Not on file Attends presybeterian service: Not on file Active member of [...] normal limits. Patient to talk to manager battery for re-enrolling in [facility] today.Will refill Biktarvy, check CBC, CMP, CD4, [...] Gregorio Irving M.D. PGY-4, Infectious Diseases Pager: [phone] Jocelyne Shaikh MA - 07/10/2020 10:30 AM [...] Office Visit Infectious Disease Gregorio Hanna MD [address] [place] [phone] Name Type Priority Associated Diagnoses Date/Ti [...] of this encounter Results COMP. METABOLIC PANEL (55725) (07/10/2020 12:13 PM CDT) [facility] nature NA 140 135 - 145 [facility] mmol/L SERVICES K 4.3 3.5 - 5.0 [facility] mmol/L SERVICES CL 102 98 - 108 mmol/L [facility] SERVICES CO2 TOTAL 30 23 - 31 mmol/L [facility] SERVICES AGAP 8 2 - 16 [facility] SERVICES BUN 15 7 - 23 mg/dL [facility] SERVICES GLUCOSE 105 70 - 110 mg/dL [facility] SERVICES CREATININE 0.87 0.60 - 1.25 [facility] mg/dL SERVICES TOTAL BILI 1.5 (H) 0.1 - 1.1 mg/dL [facility] SERVICES CALCIUM 9.0 8.6 - 10.6 [facility] mg/dL SERVICES T PROTEIN 7.3 6.3 - 8.2 g/dL [facility] SERVICES ALBUMIN 4.3 3.5 - 5.0 g/dL [facility] SERVICES ALK PHOS 110 34 - 122 U/L [facility] SERVICES ALTv 18 5 - 50 U/L [facility] SERVICES AST(SGOT) 26 13 - 40 U/L [facility] SERVICES eGFR Calculation 92.5 mL/min/1.73m2 [facility] (Non- SERVICES [place]) eGFR Calculation 112.1 mL/min/1.73m2 [facility] () SERVICES Specimen Blood - ARM, RIGHT Narrative Performed At Association of Glomerular Filtration Rate (GFR) and St aging [facility] SERVICES of Kidney Disease* + [...] . 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
--- OUTSIDE RECORDS SUMMARY | 2020-09-22 01:45 | XMS REPORT | Summary of Care ---
:1970 Author Organization [facility] Address [address] [place] [address] Care Team Providers Name Role Phone Pcp, Does Not Have A Primary Care Provider Reason for Visit Reason Comments Follow-up Encounter Details Date Type Department Care Team Description 07/10/2020 Office Visit [facility] Yonatan John MD [address] [place] [address]. [place] [phone] HIV infection, unspecified symptom statu s (Primary Dx); Infectious Diseases- Gregorio Hanna MD [address] [place] [phone] Positive PPD; [place] GERD without esophagitis; [facility] Clinics Staph skin infection [address] [facility], 6th [place] [address] Allergies Active Allergy Reactions Severity [...] GERD without mouth daily esophagitis before breakfast. qdaupxosx-qxjvktex-dc Take 1 90 tablet 1 Active nofov ala (BIKTARVY) tablet by 0 50-200-25 mg mouth daily. tabletIndications: Staph skin infection ppavcrpta-lozyksul-bd Take 1 90 tablet 1 07/11/20 Discontinued [...] with Biktarvy since he left [facility]. No fever, chills, malaise, weight loss or other constitutional symptoms. No CP, SOB, cough, nausea, vomiting or diarrhea. No rashes, skin lesions or LAD. He does endorse some acid reflux. PMH: Past Medical History: Diagnosis Date HIV (human immunodeficiency virus infection) HLD (hyperlipidemia) MEDICATIONS Current Outpatient Medications on File Prior to Visit Medication Sig Dispense Refill gegykrypq-tfmdnqho-stezboc ala (BIKTARVY) 50-200-25 mg tablet Take 1 [...] file Gets together: Not on file Attends sikh service: Not on file Active member of [...] within normal limits. Patient to talk to vendor manager for re-enrolling in [facility] today.Will [...] Gregorio Irving M.D. PGY-4, Infectious Diseases Pager: [phone] Jocelyne Shaikh MA - 07/10/2020 10:30 AM [...] Office Visit Infectious Disease Gregorio Hanna MD [address] [place] [phone] Name Type Priority Associated Diagnoses Date/Ti [...] of this encounter Results COMP. METABOLIC PANEL (55494) (07/10/2020 12:13 PM CDT) [facility] nature NA 140 135 - 145 [facility] mmol/L SERVICES K 4.3 3.5 - 5.0 [facility] mmol/L SERVICES CL 102 98 - 108 mmol/L [facility] SERVICES CO2 TOTAL 30 23 - 31 mmol/L [facility] SERVICES AGAP 8 2 - 16 [facility] SERVICES BUN 15 7 - 23 mg/dL [facility] SERVICES GLUCOSE 105 70 - 110 mg/dL [facility] SERVICES CREATININE 0.87 0.60 - 1.25 [facility] mg/dL SERVICES TOTAL BILI 1.5 (H) 0.1 - 1.1 mg/dL [facility] SERVICES CALCIUM 9.0 8.6 - 10.6 [facility] mg/dL SERVICES T PROTEIN 7.3 6.3 - 8.2 g/dL [facility] SERVICES ALBUMIN 4.3 3.5 - 5.0 g/dL [facility] SERVICES ALK PHOS 110 34 - 122 U/L [facility] SERVICES ALTv 18 5 - 50 U/L [facility] SERVICES AST(SGOT) 26 13 - 40 U/L [facility] SERVICES eGFR Calculation 92.5 mL/min/1.73m2 [facility] (Non- SERVICES [place]) eGFR Calculation 112.1 mL/min/1.73m2 [facility] () SERVICES Specimen Blood - ARM, RIGHT Narrative Performed At Association of Glomerular Filtration Rate (GFR) and St aging [facility] SERVICES of Kidney Disease* [...] . 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
--- OUTSIDE RECORDS SUMMARY | 2020-09-22 01:46 | XMS REPORT | Summary of Care ---
:1970 Author Organization [facility] Address [address] [place] [address] Care Team Providers Name Role Phone Pcp, Does Not Have A Primary Care Provider Reason for Visit Reason Comments Assessment Swollen Hand Encounter Details Date Type Department Care Team Description 08/19/2020 Telephone [facility] Infectious [place], [place] Will Assessment (Swollen Diseases- [address] Hand) [facility] [id number] [address] [place] [address] 6th Floor [address] [place], [place] [phone] Allergies No Known Allergiesdocumented as of this encounter (statuses as of 08/19/2020) Medications Medication Sig Dispensed Refills Start Date [...] MOUTH AT (human immunodeficiency BEDTIME. virus infection) pantoprazole 20 mg EC Take 1 tablet 30 tablet 0 07/11/2020 Active tabletIndications: GERD by mouth daily without esophagitis before breakfast. ipgovfkaf-ovkpgpcj-yltfd Take 1 tablet 90 tablet 1 07/11/2020 Active ov ala (BIKTARVY) by mouth daily. 50-200-25 mg tabletIndications: Staph skin infection documented as of this encounter (statuses as of 08/19/2020) Active Problems Problem Noted Date HIV (human immunodeficiency virus infection) 8 HLD (hyperlipidemia) 06/07/2018 documented as of this encounter (statuses as of 08/19/2020) Immunizations Name Administration Dates Next Due Influenza [...] Drinks/Week oz/Week Comments Yes 12 pack beer tue Sex Assigned at Date Recorded Not on file documented as of this encounter Last Filed Vital Signs Not on filedocumented in this encounter Miscellaneous Notes Telephone Encounter - Jenna Scott RN - 08/19/2020 9:56 AM CST Summary : woke up this am his right hand is swollen , no puncture wound or bites, Top side of hand Patient reports: 1. Hand still swollen today - he is able to write and use mobility 2. 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 He is just not sure what to do. Patient is asking for a call back to assess. 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
--- OUTSIDE RECORDS SUMMARY | 2020-09-22 01:46 | XMS REPORT | Summary of Care ---
:1970 Author Organization [facility] Address [address] [place] [id number] Care Team Providers Name Role Phone Pcp, Does Not Have A Primary Care Provider Reason for Referral MRI/CAT Scan (STAT) Status Reason Specialty Diagnoses / Referred By Referred To Procedures Contact Contact New Request Diagnostic Diagnoses Right sided abdominal pain John K Radiology Procedures CT ABDOMEN PELVIS WO CONTRAST Silvia, PAC [address] [place] [address] Reason for Visit Reason Comments Abdominal Pain Penis/Scrotum Problem Auth/Cert Status Reason Specialty Diagnoses / Referred By Referred To Procedures Contact Contact Emergency Medicine [facility] Em ergency Dept [address] [place] [address] Fax: Encounter Details Date Type Department Care Team Description 07/16/2020 Emergency ADC-Emergency John K Silvia, Ureteral s tone with hydronephrosis (Primary Dx); Department PAC Right sided abdominal pain [address] [place] [address] [place] [address] [phone] Allergies No Known Allergiesdocumented as of this encounter (statuses as of 07/16/2020) Medications Medication Sig Dispensed Refills Start Date [...] by mouth daily without esophagitis before breakfast. [id number] Take 1 tablet 90 tablet 1 07/11/2020 Active ov ala (BIKTARVY) by mouth daily. 50-200-25 mg tabletIndications: Staph skin infection documented as of this encounter (statuses as of 07/16/2020) Active Problems Problem Noted Date HIV (human immunodeficiency virus infection) 8 HLD (hyperlipidemia) 06/07/2018 documented as of this encounter (statuses as of 07/16/2020) Immunizations Name Administration Dates Next Due Influenza [...] Assigned at Date Recorded Not on file COVID-19 Exposure Response Date Recorded In the last month, have you been in contact with No / Unsure 07/16/2020 6:25 PM NATURAL DEVELOPER someone who was confirmed or suspected to have Coronavirus / COVID-19? documented as of this encounter Last Filed Vital Signs Vital Sign Reading Time Taken Comments Blood Pressure 108/71 07/16/2020 9:20 PM NATURAL DEVELOPER Pulse 96 07/16/2020 9:20 PM NATURAL DEVELOPER Temperature 36.7 C (98.1 F) 07/16/2020 6:28 PM NATURAL DEVELOPER Respiratory Rate 20 07/16/2020 9:20 PM NATURAL DEVELOPER Oxygen Saturation 98% 07/16/2020 9:20 PM NATURAL DEVELOPER Inhaled Oxygen Concentration - - Weight 88 kg (194 lb) 07/16/2020 6:28 PM NATURAL DEVELOPER Height - - Body Mass Index 25.6 07/10/2020 10:29 AM CDT documented in this encounter Discharge Instructions AttachmentsThe following attachments cannot be sent through Care Everywhere. Kidney Stone, Passed (Italian)documented in this encounter ED Notes Magali Mcgill RN - 07/16/2020 6:26 PM CSTPatient report right sided abdominal pain that radiates down the right side of his scrotum starting two days ago. Patient also reporting nausea documented in this encounter Miscellaneous Notes ED Nurse Note - Jocelyn Bell RN - 07/16/2020 9:33 PM CSTPt given printed and verbal discharge instructions regarding Ureteral stone with hydronephrosis, right sided abdominal pain encouraged hydration, Discussed ibuprofen and to take with food to avoid GI distress. Pt verbalized understanding of instructions, pt awake alert oriented, resp reg unlabored, skin w/d, color appropriate for race, moves all ext well,pt encouraged to follow up with PCP if worsening signsor symptoms. Advised to seek medical attention for new/prolonged/worsening of symptoms, Symptoms increase pain, any signs of infection, fever over 100.4 No adverse reaction to meds given in ER noted upon discharge PIV d'cd, dressing to site, catheter in tact. Awake, alert oriented, resp reg unlabored, skin w/d, pt leaving amb with steady gait, in no apparent distress, D Nurse Note - Magali Mcgill RN - 07/16/2020 6:58 PM CSTReport given to Rupa ELIZABETH documented in this encounter Plan of Treatment Date Type Specialty Care Team Description 01/08/2021 Office Visit Infectious Disease Gregorio Hanna MD [address] [place] [address] NIKIA Friend [phone] Health Maintenance Due Date Last [...] encounter Procedures Procedure Name Priority Date/Time Associated Comments Diagnosis POTASSIUM SERUM STAT 07/16/2020 8:33 PM Right sided Resul ts for this NATURAL DEVELOPER abdominal pain procedure are in the results section. URINALYSIS STAT 07/16/2020 7:20 PM Right sided Results for this NATURAL DEVELOPER abdominal pain procedure are in the results section. CT ABDOMEN PELVIS WO STAT 07/16/2020 7:01 PM Right sided Results for this CONTRAST NATURAL DEVELOPER abdominal pain procedure are in the results section. CBC WITH DIFF STAT 07/16/2020 6:38 PM Right sided Results for this NATURAL DEVELOPER abdominal pain procedure are in the results section. COMP. METABOLIC STAT 07/16/2020 6:38 PM Right sided Resul ts for this PANEL ([id number]) NATURAL DEVELOPER abdominal pain procedure ar e in the results section. CONSENT/REFUSAL FOR Routine 07/16/2020 6:20 PM DIAGNOSIS AND NATURAL DEVELOPER TREATMENT NOTICE OF PRIVACY Routine 07/16/2020 6:20 PM PRACTICES NATURAL DEVELOPER documented in this encounter Results POTASSIUM SERUM (07/16/2020 8:33 PM NATURAL DEVELOPER) Pathologist Sig nature K 4.5 3.5 - 5.0 mmol/L [facility] LABORATORY Specimen Blood - VENOUS Performing Organization Address City/State/Zipcode Phone Number [facility] CLIA: [id number] [place] [address] URINALYSIS (07/16/2020 7:20 PM NATURAL DEVELOPER) Pathologist Sig nature APPEARANCE Clear Clear [facility]ORY COLOR Yellow Yellow [facility] PH 7.0 4.8 - 8.0 [facility] SP GRAVITY 1.012 1.003 - 1.030 [facility] GLU U QUAL Normal Normal [facility] BLOOD 2+ (A) Negative [facility] KETONES Negative Negative [facility] PROTEIN Negative Negative [facility] UROBILIN Normal Normal [facility] BILIRUBIN Negative Negative [facility] NITRITE Negative Negative [facility] LAB[facility]ATORY LEUK BISHNU Negative Negative [facility] RBC/HPF 3 0 - 3 HPF [facility] WBC/HPF 5 0 - 5 HPF [facility]ORY BACTERIA Few (A) Negative [facility] MUCOUS Slight (A) Negative LPF [facility]ATORY SQ EPITH <1 HPF [facility]OR[facility]ORY Specimen Urine - URINE, CLEAN CATCH Performing Organization Address City/State/Zipcode Phone Number [facility] CLIA: [id number] [place] [address] ABDOMEN PELVIS WO CONTRAST (07/16/2020 7:01 PM NATURAL DEVELOPER) Specimen Impressions Performed At PACS/VR/DOSE 1. Moderate right-sided hydronephrosis and proximal hydroureter with extensive surrounding inflammatory changes and ill-def ined perirenal fluid collection. These findings can be seen with recent pas alban of stone and/or acute pyelonephritis. Correlation with patient's sympt oms and urinalysis is recommended. 2. No renal or ureteral stones. CT uro gram may be helpful in further evaluation. Preliminary Report Dictated by Resident: Adrian Canela MD., have reviewe d this study and agree with the above report. Narrative Performed At EXAM: CT ABDOMEN AND PELVIS WITHOUT CONT RAST PACS/VR/DOSE HISTORY: 50-year-old male with flank jesus n, stone disease suspected COMPARISON: None. TECHNIQUE AND FINDINGS: Contiguous axial imaging from the level of the lung bases through the pubic symphysis was pe rformed without the intravenous administration of contrast. Coronal and sagittal reconstructions were obtained. Auto mA and/or iterative rec onstruction were used to reduce radiation dose. FINDINGS: LOWER THORAX: Minimal dependent atelecta sis of the right middle lobe and lingula with subsegmental atelectasis of the right lower lobe. No cardiomegaly. LIVER: No focal hepatic lesions. Normal liver contour. GALLBLADDER AND BILIARY TREE: No biliary ductal dilation. No gallbladder wall thickening. SPLEEN: Splenomegaly PANCREAS: No ductal dilation or masses ADRENAL GLANDS: No adrenal nodules KIDNEYS: No renal or ureteral stones. Th ere is moderate right-sided hydronephrosis and proximal hydroureter with extensive perinephric and periureteral stranding. There is thicken ing of the renal pelvis and proximal ureter. Ill-defined fluid collection is noted along the posterior pararenal space. No left-sided hydronephrosis. A 1.8 cm s imple cyst is noted in the lower pole of the left kidney. PERITONEUM AND RETROPERITONEUM: Ill-defined fluid matti ection and extensive inflammatory stranding is noted around the right kidne y extending into the right paracolic gutter. No free air. LYMPH NODES: No lymphadenopathy. GI TRACT: No dilation or wall thickening . Pericolonic stranding is noted around the ascending colon. PELVIS/BLADDER: No bladder wall thickeni ng. VESSELS: Unremarkable. BONES AND SOFT TISSUES: No suspicious ly tic or sclerotic bony lesions. Procedure Note [facility], Radiant Results Inft User - 2019 7:42 PM NATURAL DEVELOPER EXAM: CT ABDOMEN AND PELVIS WITHOUT CONTRAST HISTORY: 50-year-old male with flank jesus n, stone disease suspected COMPARISON: None. TECHNIQUE AND FINDINGS: Contiguous axial imaging from the level of the lung bases through the pubic symphysis was pe rformed without the intravenous administration of contrast. Coronal and sagittal reconstructions were obtained. Auto mA and/or iterative ramonita nstruction were used to reduce radiation dose. FINDINGS: LOWER THORAX: Minimal dependent atelecta sis of the right middle lobe and lingula with subsegmental atelectasis of the right lower lobe. No cardiomegaly. LIVER: No focal hepatic lesions. Normal liver contour. GALLBLADDER AND BILIARY TREE: No biliary ductal dilation. No gallbladder wall thickening. SPLEEN: Splenomegaly PANCREAS: No ductal dilation or masses ADRENAL GLANDS: No adrenal nodules KIDNEYS: No renal or ureteral stones. Th ere is moderate right-sided hydronephrosis and proximal hydroureter with extensive perinephric and periureteral stranding. There is thicken ing of the renal pelvis and proximal ureter. Ill-defined fluid colle ction is noted along the posterior pararenal space. No left-sided hydronephrosis. A 1.8 cm s imple cyst is noted in the lower pole of the left kidney. PERITONEUM AND RETROPERITONEUM: Ill-defi edwin fluid collection and extensive inflammatory stranding is noted around t he right kidney extending into the right paracolic gutter. No free air. LYMPH NODES: No lymphadenopathy. GI TRACT: No dilation or wall thickening . Pericolonic stranding is noted around the ascending colon. PELVIS/BLADDER: No bladder wall thickeni ng. VESSELS: Unremarkable. BONES AND SOFT TISSUES: No suspicious ly tic or sclerotic bony lesions. IMPRESSION 1. Moderate right-sided hydronephrosis and proximal hydroureter with extensive surrounding inflammatory barton es and ill-defined perirenal fluid collection. These findings can be seen w ith recent passage of stone and/or acute pyelonephritis. Correlation with p atient's symptoms and urinalysis is recommended. 2. No renal or ureteral stones. CT urog mila may be helpful in further evaluation. Preliminary Report Dictated by Resident: Adrian Canela MD., have reviewed this study and agree with the above report. Performing Organization Address City/State/Zipcode Phone Number PACS/VR/DOSE COMP. METABOLIC PANEL ([id number]) (07/16/2020 6:38 PM NATURAL DEVELOPER) Pathologist Sig nature NA 134 (L) 135 - 145 [facility] mmol/L [facility] LAB[facility]ATORY K 5.4 (H) 3.5 - 5.0 [facility] mmol/L HOSPITAL LABORATORY CL 99 98 - 108 mmol/L [facility]ORY CO2 TOTAL 24 23 - 31 mmol/L [facility] AGAP 11 2 - 16 [facility] BUN 14 7 - 23 mg/dL [facility] GLUCOSE 161 (H) 70 - 110 mg/dL [facility]ORY CREATININE 1.11 0.60 - 1.25 [facility] mg/dL HOSPITAL LAB[facility]ATORY TOTAL BILI 1.2 (H) 0.1 - 1.1 mg/dL [facility] LAB[facility]ATORY CALCIUM 9.6 8.6 - 10.6 [facility] mg/dL [facility] LAB[facility] T PROTEIN 8.1 6.3 - 8.2 g/dL [facility] ALBUMIN 4.7 3.5 - 5.0 g/dL [facility] LABORATORY ALK PHOS 75 34 - 122 U/L [facility] ALTv 25 5 - 50 U/L [facility] LAB[facility]ORY AST(SGOT) 49 (H) 13 - 40 U/L [facility] eGFR Calculation 69.6 mL/min/1.73m2 [facility] ([facility] LABORATORY [place]) eGFR Calculation 84.3 mL/min/1.73m2 [facility] () [facility] LABORATORY Specimen Blood - VENOUS Narrative Performed At Association of Glomerular Filtration Rate (GFR) [facility] LABORATORY and Staging of Kidney Disease* + + +- + | GFR (mL/min/1.73 m2) | With Kidney Damage | Without Kidney Damage + + +- + | >90 | Stage one | Normal + + +- + | 60-89 | Stage two | Decreased GFR + + +- + | 30-59 | Stage three | Stage three + + +- + | 15-29 | Stage four | Stage four + + +- + | <15 (or dialysis) | Stage five | Stage five + + +- + *Each stage assumes the associated GFR level has been in effect for at least three months. Stages 1 to 5, with or without kidney disease, indicate chronic kidney disease. Notes: Determination of stages one and two (with eGFR >59mL/min/1.73 m2) requires estimation of kidney damage for at least three months as defined by structural or functional abnormalities of the kidney, manifested by either: Pathological abnormalities or Markers of kidney damage (including abnormalities in the composition of the blood or urine or abnormalities in imaging tests). Performing Organization Address City/State/Zipcode Phone Number [facility] CLIA: [id number] [place] [address] CBC WITH DIFF (07/16/2020 6:38 PM NATURAL DEVELOPER) [facility] WBC 9.55 4.20 - 10.70 [facility] 10*3/L [facility] RBC 3.49 (L) 4.26 - 5.52 [facility] 10*6/L HOSPITAL LABORATORY HGB 11.7 (L) 12.2 - 16.4 [facility] g/dL HOSPITAL LABORATORY HCT 35.3 (L) 38.4 - 49.3 % [facility]ORY MCV 101.1 (H) 81.7 - 95.6 fL [facility] MCH 33.5 (H) 26.1 - 32.7 pg [facility] LAB[facility]ORY MCHC 33.1 31.2 - 35.0 [facility] g/dL [facility] LAB[facility] RDW-SD 50.3 38.5 - 51.6 fL [facility]ORY RDW-CV 13.7 12.1 - 15.4 % [facility] PLT 186 150 - 328 [facility] 10*3/L [facility] MPV 9.3 (L) 9.8 - 13.0 fL [facility]ORY NRBC/100 WBC 0.0 0.0 - 10.0 /100 [facility] WBCs [facility] NRBC x10^3 <0.01 10*3/L [facility]ORY GRAN MAT (NEUT) % 75.7 % [facility] LABOR[facility] IMM GRAN % 0.30 % [facility] LYMPH % 14.7 % [facility] MONO % 8.9 % [facility] EOS % 0.2 % [facility] LAB[facility]ORY BASO % 0.2 % [facility] LAB[facility]ATORY GRAN MAT x10^3(ANC) 7.23 (H) 1.99 - 6.95 [facility] 10*3/uL HOSPITAL LABORATORY IMM GRAN x10^3 0.03 0.00 - 0.06 [facility] 10*3/uL HOSPITAL LABORATORY LYMPH x10^3 1.40 1.09 - 3.23 [facility] 10*3/uL HOSPITAL LABORATORY MONO x10^3 0.85 0.36 - 1.02 [facility] 10*3/uL HOSPITAL LABORATORY EOS x10^3 <0.03 (L) 0.06 - 0.53 [facility] 10*3/uL HOSPITAL LABORATORY BASO x10^3 <0.03 0.01 - 0.09 [facility] 10*3/uL HOSPITAL LABORATORY Specimen Blood - VENOUS Performing Organization Address City/State/Zipcode Phone Number [facility] CLIA: [id number] [place] [address] documented in this encounter Visit Diagnoses Diagnosis Ureteral stone with hydronephrosis - [facility] jermaine Calculus of ureter Right sided abdominal pain Abdominal pain, unspecified site documented in this encounter Administered Medications Medication Order MAR Action Action Date Dose Rate Site tamsulosin (FLOMAX) capsule 0.4 Given 07/16/2020 6:41 PM NATURAL DEVELOPER 0. 4 mg mg 0.4 mg, Oral, DAILY, First dose on Bess 07/17/20 at 0900, Until Discontinued, Routine Medication Order MAR Action Action Date Dose Rate Site ketorolac (TORADOL) injection 30 Given 07/16/2020 6:41 PM NATURAL DEVELOPER 3 0 mg mg 30 mg, Slow IV Push, ONCE, 1 dose, Tue07/16/20 at 1945, FLORI, hotel staff member approving Restricted medication: Edilma ANN NaCl 0.9% (NS) bolus infusion New Bag 07/16/2020 6:40 PM NATURAL DEVELOPER 1,000 mL 999 mL/hr 1,000 mL at 999 mL/hr, 1,000 mL, IV Infusion, ONCE, 1 dose, Tue07/16/20 at 1945, STAT documented in this encounter"
--- OUTSIDE RECORDS SUMMARY | 2020-09-22 01:46 | XMS REPORT | Summary of Care ---
:1970 Author Organization [facility] Address [address] [place] [address] Care Team Providers Name Role Phone Pcp, Does Not Have A Primary Care Provider Reason for Visit Reason Comments Case Management RW Interdisciplinary review Encounter Details Date Type Department Care Team Description 07/30/2020 Case Management [facility] Dm Chan Case Cecilio kumar (VANESA Infectious RN Interdisciplinary Diseases- [address] [place] [address] review) [address] [place] [address] Allergies No Known Allergiesdocumented as of this encounter (statuses as of 07/31/2020) Medications Medication Sig Dispensed Refills Start Date [...] by mouth daily without esophagitis before breakfast. [id number] Take 1 tablet 90 tablet 1 07/11/2020 Active ov ala (BIKTARVY) by mouth daily. 50-200-25 mg tabletIndications: Staph skin infection documented as of this encounter (statuses as of 07/31/2020) Active Problems Problem Noted Date HIV (human immunodeficiency virus infection) 8 HLD (hyperlipidemia) 06/07/2018 documented as of this encounter (statuses as of 07/31/2020) Immunizations Name Administration Dates Next Due Influenza [...] oz/Week Comments Yes 12 pack beer [facility] Sex Assigned at Date Recorded Not on file COVID-19 Exposure Response Date Recorded In the last month, have you been in contact with No / Unsure 07/16/2020 6:25 PM CAUSTIC ROOM ATTENDANT someone who was confirmed or suspected to have Coronavirus / COVID-19? documented as of this encounter Last Filed Vital Signs Not on filedocumented in this encounter Progress Notes Dm Chan RN - 07/30/2020 11:59 PM CSTMet with RW Interdisciplinary Team to discuss client status, plan of care, and other outstanding issues. All identified needs addressed. 30 min. taken. TIC ROOM ATTENDANT documented in this encounter Plan of Treatment Date Type Specialty Care Team Description 01/08/2021 Office Visit Infectious Disease Gregorio Hanna MD [address] [place] [address] [phone] Health Maintenance Due Date Last Done [...]
--- OUTSIDE RECORDS SUMMARY | 2020-09-22 01:46 | XMS REPORT | Summary of Care ---
:1970 Author Organization [address] [address] Care Team Providers Name Role Phone Pcp, Does Not Have A Primary Care Provider Reason for Visit Reason Comments Follow-up Encounter Details Date Type Department Care Team Description 08/21/2020 Office Visit [facility] Aristides Engel, Cellulitis of right hand (Primary Dx); Infectious Diseases- MD Gregorio HIV infection, unspecified symptom statu s [place] [id number] [phone] [place] [address] Allergies No Known Allergiesdocumented as of this encounter (statuses as of 08/22/2020) Medications Medication Sig Dispensed Refills Start Date [...] by mouth daily without esophagitis before breakfast. hzttdqmzx-xacyjhwa-taog Take 1 tablet 90 tablet 1 07/11/2020 Active fov ala (BIKTARVY) by mouth 50-200-25 mg daily. tabletIndications: Staph skin infection minocycline 100 mg Take 1 capsule 14 capsule 0 08/21/202008/12 Active capsuleIndications: by mouth every Cellulitis of right 12 (twelve) hand hours for 7 days. documented as of this encounter (statuses as of 08/22/2020) Active Problems Problem Noted Date HIV (human immunodeficiency virus infection) 8 HLD (hyperlipidemia) 06/07/2018 documented as of this encounter (statuses as of 08/22/2020) Immunizations Name Administration Dates Next Due Influenza [...] Sign Reading Time Taken Comments Blood Pressure 123/84 08/21/2020 11:24 AM SOFTWARE PRODUCT MANAGER Pulse 93 08/21/2020 11:24 AM SOFTWARE PRODUCT MANAGER Temperature 36.9 C (98.5 F) 08/21/2020 11:22 AM SOFTWARE PRODUCT MANAGER Respiratory Rate - - Oxygen Saturation - - Inhaled Oxygen Concentration - - Weight 85.9 kg (189 lb 6.4 oz) 08/21/2020 11:22 AM SOFTWARE PRODUCT MANAGER Height 185.4 cm (6' 1") 08/21/2020 11:22 AM SOFTWARE PRODUCT MANAGER Body Mass Index 24.99 08/21/2020 11:22 AM SOFTWARE PRODUCT MANAGER documented in this encounter Progress Notes Gregorio Hanna MD - 08/21/2020 11:30 AM CST Date of service: 08/21/2020 Visit Type: Established HIV Outpatient CC: "R hand cellulitis" HPI Adeel Antoine is a 49 year old male here today for R hand cellulitis. Was last seen in clinic 07/10/2020. Interval history: Mr. Antoine reports that 4 days ago he woke up with severe swelling of his R hand, as well as erythemaand tenderness. He denies any recent trauma or contact exposure to particular substances. States could have been an insect bite. He reports taking 3 doses of ciprofloxacin and that the swelling and tenderness improved spontaneously over the next 3 days. Denies fever, chills, abdominal pain, nausea, vomiting or diarrhea. PMH: Past Medical History: Diagnosis Date HIV (human immunodeficiency virus infection) HLD (hyperlipidemia) MEDICATIONS Current Outpatient Medications on File Prior to Visit Medication Sig Dispense Refill yjjzjludz-rxfalhfy-kkzazza ala (BIKTARVY) 50-200-25 mg tablet Take 1 tablet by mouth daily. 90 tablet 1 pantoprazole 20 mg EC tablet Take 1 tablet by mouth daily before breakfast. 30 tablet 0 ATORVASTATIN 40 mg tablet TAKE 1 TABLET [...] medications on file prior to visit. ALLERGIES No Known Allergies SOCIAL HISTORY Social History Socioeconomic History Marital [...] file Gets together: Not on file Attends orthodoxy service: Not on file Active member of [...] oriented x 4, no apparent distress. BP 123/84 | Pulse 93 | Temp 36.9 C (98.5 F) (Oral) | Ht 6' 1" (1.854 m) | Wt 189 lb 6.4 oz (85.9 kg) | BMI 24.99 kg/m Eyes: EOMI, PERRLA, anicteric sclerae. Moist pink conjunctivae ENT: mild pharyngeal erythema CV: RRR, S1, S2 normal; no murmurs, rubs or gallops Respiratory: clear to auscultation bilaterally, normal respiratory effort GI: abdomen soft; non-tender; non-distended; normoactive bowel sounds Musculoskeletal: normal gait and station. No digital clubbing or cyanosis Skin: warm and dry. R hand with mild swelling and erythema, predominantly in the dorsum of the thenar aspect. Appears to be developing a small boil. No visible exudate. Neuro: No focal deficits LABORATORY HIV 1 by Real-Time PCR (no units) Date Value 07/10/2020 Not Detected CD4 Absolute (Cells/L) Date Value 07/10/2020 846 07/05/2019 766 12/28/2018 783 WBC (10*3/L) Date Value 07/16/2020 9.55 HGB (g/dL) Date Value 07/16/2020 11.7 (L) PLT (10*3/L) Date Value 07/16/2020 186 CREATININE (mg/dL) Date Value 07/16/2020 1.11 GLUCOSE (mg/dL) Date Value 07/16/2020 161 (H) ALT(SGPT) (U/L) Date Value 11/16/2018 40 ALTv (U/L) Date Value 07/16/2020 25 AST(SGOT) (U/L) Date Value 07/16/2020 49 (H) ALK PHOS (U/L) Date Value 07/16/2020 75 CHOL (mg/dL) Date Value 07/05/2019 96 (L) TRIG (mg/dL) Date Value 07/05/2019 153 HAV Total (no units) Date Value 09/21/2018 Positive HCV Ab (no units) Date Value 06/08/2018 Negative HCV Semi-Quantitative (no units) Date Value 06/08/2018 0.03 No results found for: SYPG ASSESSMENT Adeel Antoine is a 49 year old male with the following problems: 1. R hand cellulitis, suspect incipient boil formation 2. HIV infection, stable, adequate response to HAART, HIV viral load undetectable Given history of Staph infections and appearance of incipient boil formation, would recommend 7 daysof therapy with minocycline. Continue with Biktarvy as indicated. Keep next appointment 12/2020. Discussed with ID Faculty Dr. John. PLAN Minocycline 100 mg PO BID for 7 days total Continue Biktarvy (refilled today) Reviewed labs from last month which are within normal limits. Instructed patient to contact clinic or return if any new problems Discussed importance of compliance with meds and follow up visits RTC in 4 months --- Gregorio Irving M.D. PGY-4, Infectious Diseases Pager: [phone] WARE PRODUCT MANAGER documented in this encounter Plan of Treatment Date Type Specialty Care Team Description 01/08/2021 Office Visit Infectious Disease Gregorio Hanna MD [address] [place] [address] [phone] Health Maintenance Due Date Last Done [...] filedocumented in this encounter Visit Diagnoses Diagnosis Cellulitis of right hand - Primary Cellulitis and abscess of hand, except f ingers and thumb HIV infection, unspecified symptom statu s documented in this encounter
--- OUTSIDE RECORDS SUMMARY | 2020-09-22 01:46 | XMS REPORT | Summary of Care ---
:1970 Author Organization [facility] Address [address] [place] [address] Care Team Providers Name Role Phone Pcp, Does Not Have A Primary Care Provider Encounter Details Date Type Department Care Team Description 08/22/2020 Patient Secure [facility] Infectious Louie Hanna- [place] MD Gregorio [facility] [address] [place] [address] 6th Floor [address] [place], [place] [phone] [address] [phone] Allergies No Known Allergiesdocumented as of this [...] by mouth daily without esophagitis before breakfast. 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
--- OUTSIDE RECORDS SUMMARY | 2020-09-22 01:46 | XMS REPORT | Summary of Care ---
:1970 Author Organization [facility] Address [address] [place] [address] Care Team Providers Name Role Phone Pcp, Does Not Have A Primary Care Provider Reason for Visit Reason Comments Follow-up Encounter Details Date Type Department Care Team Description 07/10/2020 Office Visit [facility] Yonatan John MD [address] [place] [address]. [place] [address] HIV infection, unspecified symptom statu s (Primary Dx); Infectious Diseases- Gregorio Hanna MD [address] [place] [phone] Positive PPD; [place] GERD without esophagitis; [facility] Staph skin infection [address] [facility], 6th [place] [address] Allergies Active Allergy Reactions Severity [...] GERD without mouth daily esophagitis before breakfast. ylqwjaeex-dgapurfm-br Take 1 90 tablet 1 Active nofov ala (BIKTARVY) tablet by 0 50-200-25 mg mouth daily. tabletIndications: Staph skin infection zniruwafh-ulsahdwa-lv Take 1 90 tablet 1 07/11/20 Discontinued [...] 100% compliance with Biktarvy since he left [facility]. No fever, chills, malaise, weight loss or other constitutional symptoms. No CP, SOB, cough, nausea, vomiting or diarrhea. No rashes, skin lesions or LAD. He does endorse some acid reflux. PMH: Past Medical History: Diagnosis Date HIV (human immunodeficiency virus infection) HLD (hyperlipidemia) MEDICATIONS Current Outpatient Medications on File Prior to Visit Medication Sig Dispense Refill ghxzgrvnb-govevuqj-dgegxuw ala (BIKTARVY) 50-200-25 mg tablet Take 1 [...] within normal limits. Patient to talk to environmental project manager for re-enrolling in [facility] today.Will refill Biktarvy, check CBC, CMP, [...] Gregorio Irving M.D. PGY-4, Infectious Diseases Pager: [phone] Jocelyne Shaikh MA - 07/10/2020 10:30 AM [...] Office Visit Infectious Disease Gregorio Hanna MD [address] [place] [address] [phone] Name Type Priority Associated Diagnoses Date/Ti [...] CD4 % 42 31 - 60 % [facility] CD4 Absolute 846 410-1,590 Cells/L [facility] JERILYN Specimen Blood - ARM, RIGHT Performing Organization Address City/State/Zipcode Phone Number [facility] CLIA: [id number] [place] [address] [place] [address] COMP. METABOLIC PANEL (05765) (07/10/2020 12:13 PM CDT) Pathologist Sig nature NA 140 135 - 145 [facility] mmol/L SERVICES K 4.3 3.5 - 5.0 [facility] mmol/L SERVICES CL 102 98 - 108 mmol/L [facility] CO2 TOTAL 30 23 - 31 mmol/L [facility] AGAP 8 2 - 16 [facility] BUN 15 7 - 23 mg/dL [facility] GLUCOSE 105 70 - 110 mg/dL [facility] CREATININE 0.87 0.60 - 1.25 [facility] mg/dL SERVICES TOTAL BILI 1.5 (H) 0.1 - 1.1 mg/dL [facility] CALCIUM 9.0 8.6 - 10.6 [facility] mg/dL SERVICES T PROTEIN 7.3 6.3 - 8.2 g/dL [facility] ALBUMIN 4.3 3.5 - 5.0 g/dL [facility] ALK PHOS 110 34 - 122 U/L [facility] ALTv 18 5 - 50 U/L [facility] AST(SGOT) 26 13 - 40 U/L [facility] eGFR Calculation 92.5 mL/min/1.73m2 [facility] (Non- SERVICES Bangladeshi) eGFR Calculation 112.1 mL/min/1.73m2 [facility] () SERVICES Specimen Blood - ARM, RIGHT Narrative Performed At Association of Glomerular Filtration Rate (GFR) and St aging [facility] of Kidney Disease* [...] . Performing Organization Address City/State/Zipcode Phone Number [facility] CLIA: [id number] [place] [address] [place] [address] CBC WITH DIFF (07/10/2020 12:13 PM CDT) [facility] frannie WBC 7.52 4.20 - 10.70 [facility] 10*3/L SERVICES RBC 3.16 (L) 4.26 - 5.52 [facility] 10*6/L SERVICES HGB 10.7 (L) 12.2 [...] RIGHT Performing Organization Address City/State/Zipcode Phone Number [facility] CLIA: [id number] [place] [address] [place], [place] [address] documented in this encounter Visit Diagnoses Diagnosis HIV infection, unspecified symptom statu s - Primary 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
--- OUTSIDE RECORDS SUMMARY | 2020-09-22 01:46 | XMS REPORT | Summary of Care ---
:1970 Author Organization [facility] Address [address] [place] [address] Care Team Providers Name Role Phone Pcp, Does Not Have A Primary Care Provider Reason for Visit Reason Comments Appointment reminder Encounter Details Date Type Department Care Team Description 08/20/2020 Telephone [facility] Lina Phelps, Appoint ment (reminder) Infectious Diseases- RN [address] [facility] [address] [place] [address] [address], [address] [place] [address] Allergies No Known Allergiesdocumented as of this encounter (statuses as of 08/20/2020) Medications Medication Sig Dispensed Refills Start Date [...] by mouth daily without esophagitis before breakfast. geyjaowzs-zfrisngo-tfrrh Take 1 tablet 90 tablet 1 07/11/2020 Active ov ala (BIKTARVY) by mouth daily. 50-200-25 mg tabletIndications: Staph skin infection documented as of this encounter (statuses as of 08/20/2020) Active Problems Problem Noted Date HIV (human immunodeficiency virus infection) 8 HLD (hyperlipidemia) 06/07/2018 documented as of this encounter (statuses as of 08/20/2020) Immunizations Name Administration Dates Next Due Influenza [...] this encounter Miscellaneous Notes Telephone Encounter - Lina Phelps RN - 08/20/2020 9:59 AM CSTVerified that clinic nurse confirmed client's 08/21 appointment with client. Sent text reminder. Reviewed EMR for possible case management needs. 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
--- OUTSIDE RECORDS SUMMARY | 2020-09-22 01:46 | XMS REPORT | Summary of Care ---
:1970 Author Organization [facility] Address [address] [place] [address] Care Team Providers Name Role Phone Pcp, Does Not Have A Primary Care Provider Reason for Visit Reason Comments Rx Concern/Question Encounter Details Date Type Department Care Team Description 07/15/2020 Telephone [facility] Infectious Clyde Hannao, Rx Concern/Question Diseases- Ronna GORE [facility] [address] [place] [address] Floor [address] [place], [place] [phone] [address] [phone] Allergies No Known Allergiesdocumented as of this encounter (statuses as of 07/30/2020) Medications Medication Sig Dispensed Refills Start Date [...] by mouth daily without esophagitis before breakfast. rrhsggjuh-brrfibbf-ykqvz Take 1 tablet 90 tablet 1 07/11/2020 Active ov ala (BIKTARVY) by mouth daily. 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 documented as of this encounter Last Filed Vital Signs Not on filedocumented in this encounter Miscellaneous Notes Telephone Encounter - Alias Castillo RN - 07/30/2020 8:54 AM CSTPlaced message in Dr. Irving's clinic folder. elephone Encounter - Jodi Louise - 07/22/2020 10:43 AM CSTPlease reviewand close encounter. Thank you. elephone Encounter - Alisa Castillo RN - 07/16/2020 4:[address] Irving Please advise. Thank you Spoke with patient. He was seen at [facility] ER this past week and was diagnosed with kidney stones. He is asking if there are any medication interactions between Edson and any of these medications he was prescribed, Flomax, Tylenol #3, Zofran, Cipro? Yesterday he was seen in [facility] ER for the same symptoms. Had imaging, per patient, he hadabout a 2 ml kidney stone, he possibly passed more than [address] showed it had recently passed. Also, his potassium was elevated when in the ER but they rechecked it and it was normal. Should he come in for a sooner appointment? elephone Encounter - Jodi Louise - 07/15/2020 10:29 AM Diamondhomer Antoine is a 50 year old male is calling states he went to external ED on 07/14/20 for kidney stones and was prescribed Flomax, Tylenol #3, Zofran, Cipro and would like to discuss prior to taking.Please call patient [phone]. Thank you. 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
--- OUTSIDE RECORDS SUMMARY | 2020-09-22 01:46 | XMS REPORT | Summary of Care ---
:1970 Author Organization [address] [address] Care Team Providers Name Role Phone Pcp, Does Not Have A Primary Care Provider Reason for Visit Reason Comments Follow-up Encounter Details Date Type Department Care Team Description 08/21/2020 Office Visit [facility] Aristides Engel, Cellulitis of right hand (Primary Dx); Infectious Diseases- MD Gregorio HIV infection, unspecified symptom statu s [place] [id number] [phone] [place] [address] Allergies No Known Allergiesdocumented as [...] by mouth daily without esophagitis before breakfast. 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 PGY-4, Infectious Diseases Pager: [phone] RCYCLE SUBASSEMBLY REPAIRER documented in this encounter Plan of Treatment Date Type Specialty Care Team Description 01/08/2021 Office Visit Infectious Disease Gregorio Hanna MD [address] [place] [address] [phone] Health Maintenance Due Date Last Done [...]
--- OUTSIDE RECORDS SUMMARY | 2020-09-22 01:47 | XMS REPORT | Summary of Care ---
:1970 Author Organization [facility] Address [address] [place] [address] Care Team Providers Name Role Phone Pcp, Does Not Have A Primary Care Provider Reason for Visit Reason Comments Letters Work Excuse Encounter Details Date Type Department Care Team Description 08/22/2020 Telephone [facility] Infectious Shahnaz Hanna ers; Work Excuse Diseases- [place] MD Gregorio [facility] [address] [place] [address] Floor [address] [place], [place] [phone] [address] [phone] Allergies No Known Allergiesdocumented as of this [...] by mouth daily without esophagitis before breakfast. jxwilnsju-ypepbjkf-djpp Take 1 tablet 90 tablet 1 07/11/2020 [...] this encounter Miscellaneous Notes Telephone Encounter - Jodi Louise - 08/22/2020 11:10 AM Kate Antione is a 50 year old male is requesting a work excuse stating he is okay to return back [facility] without limitations. 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
--- OUTSIDE RECORDS SUMMARY | 2020-09-22 01:47 | XMS REPORT | Summary of Care ---
:1970 Author Organization [facility] Address [address] [place] [address] Care Team Providers Name Role Phone Pcp, Does Not Have A Primary Care Provider Encounter Details Date Type Department Care Team Description 09/04/[address] [facility] Infectious [place], [place] [facility] Clin[facility] [id number] [place] [address] [address] [address] [place] [address] Allergies No Known Allergiesdocumented as of this encounter (statuses as of 09/04/2020) Medications Medication Sig Dispensed Refills Start Date [...] by mouth daily without esophagitis before breakfast. kzbhostqm-dxikajff-rwbuj Take 1 tablet 90 tablet 1 07/11/2020 Active ov ala (BIKTARVY) by mouth daily. 50-200-25 mg tabletIndications: Staph skin infection documented as of this encounter (statuses as of 09/04/2020) Active Problems Problem Noted Date HIV (human immunodeficiency virus infection) 8 HLD (hyperlipidemia) 06/07/2018 documented as of this encounter (statuses as of 09/04/2020) Immunizations Name Administration Dates Next Due Influenza [...] oz/Week Comments Yes 12 pack beer [facility] Sex Assigned at Date Recorded Not on file documented as of this encounter Last Filed Vital Signs Not on filedocumented in this encounter Plan of Treatment Date Type Specialty Care Team Description 01/08/2021 Office Visit Infectious Disease Gregorio Hanna MD [address] [place] [address] [phone] Health Maintenance Due Date Last Done [...]
--- OUTSIDE RECORDS SUMMARY | 2020-09-22 01:47 | XMS REPORT | Summary of Care ---
:1970 Author Organization [address] [address] Care Team Providers Name Role Phone Pcp, Does Not Have A Primary Care Provider Reason for Visit Reason Comments Forms Work Release Form Talk To Nurse Work Excuse Encounter Details Date Type Department Care Team Description 08/22/2020 Telephone [facility] Anastacio Hanna (Work Re lease Infectious Diseases- MD Gregorio Form); Talk To Nurse; [address] Work Excuse [address], 6[address] Floor [phone] [place] [address] Allergies No Known Allergiesdocumented as of this encounter (statuses as of 08/26/2020) Medications Medication Sig Dispensed Refills Start Date [...] by mouth daily without esophagitis before breakfast. xgbqctozj-tqndxuae-zebl Take 1 tablet 90 tablet 1 07/11/2020 Active fov ala (BIKTARVY) by mouth 50-200-25 mg daily. tabletIndications: Staph skin infection minocycline 100 mg Take 1 capsule 14 capsule 0 08/21/202008/12 Active capsuleIndications: by mouth every Cellulitis of right 12 (twelve) hand hours for 7 days. documented as of this encounter (statuses as of 08/26/2020) Active Problems Problem Noted Date HIV (human immunodeficiency virus infection) 8 HLD (hyperlipidemia) 06/07/2018 documented as of this encounter (statuses as of 08/26/2020) Immunizations Name Administration Dates Next Due Influenza [...] this encounter Miscellaneous Notes Telephone Encounter - Irma Gimenez - 08/26/2020 12:[address]. Irving and Dr. 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 States he has been calling since 08/22/20 toget a return to work slip/notice from Dr. Irving and no one has called him back or been able to helphim. Patient was last seen in clinic on 08/21/20 by Aristides. Patient states his employer told him if letter is not received today from his physician he will be in disciplinary action with his job. Can either of you please help me on this so I can call patient back. 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 Irving sent email back stating he called patient and was waiting for patient to tell him where to send the letter. Being taken care of: From: Gregorio Hanna <[email or web address]> Sent: Wednesday, August 26, 2020 12:35 PM To: Irma Gimenez <[email or web address]>; Yonatan John <[email or web address]> Cc: Irma Gimenez <[email or web address]> Subject: Re: - HELP I just talked to him. Im waiting for him to tell me where does he need the letter to be sent to. Thanks, Gregorio Irving MD PGY-4, Infectious Diseases COMMUNICATIONS NETWORK ENGINEER Telephone Encounter - Carmelita Lowry - 08/26/2020 9:28 AM Kate Antoine is a 50 year old male Patient is calling checking on status of letter. Patient states he is needing letter today or will be released from his employer. Please contact at [phone] Thank you COMMUNICATIONS NETWORK ENGINEER Telephone Encounter - Jodi Louise - 08/25/2020 3:04 PM CSTAdeel Antoine is a 50 year old male is calling for work excuse status. Please call patient [phone]. Thank you elephone Encounter - Jodi Louise - 08/25/2020 1:10 PM TELECOMMUNICATIONS NETWORK ENGINEER Adeel Antoine is a 50 year old male is calling to follow up on work excuse status states he will need FLORI or will lose job. Please call patient [phone]. Thank you. elephone Encounter - Jodi Louise - 08/25/2020 9:58 AM TELECOMMUNICATIONS NETWORK ENGINEER Adeel Antoine is a 50 year old male is calling to follow up on work excuse. Please call patient [phone]. Thank you. elephone Encounter - Jenna Scott RN - 08/22/2020 4:17 PM CSTPaged MD elephone Encounter - Alicia Rojas - 08/22/2020 2:37 PM CSTPt called requesting a work release note from Doctor to be able to return to work. Also requesting to speak to Nurse. documented in this encounter Plan of Treatment Date Type Specialty Care Team Description 01/08/2021 Office Visit Infectious Disease Gregorio Hanna MD [address] [place] [address] [phone] Health Maintenance Due Date Last Done [...]
--- OUTSIDE RECORDS SUMMARY | 2020-09-22 01:47 | XMS REPORT | Summary of Care ---
:1970 Author Organization [facility] Address [address] [place] [id number] Care Team Providers Name Role Phone Pcp, Does Not Have A Primary Care Provider Encounter Details Date Type Department Care Team Description 08/22/2020 Patient [facility] Infectious Louie Hanna- [place] MD Gregorio [facility] [address] [place] [address] 6th [address] [phone] [place], [place] [phone] [address] [phone] Allergies No Known Allergiesdocumented as of this [...] by mouth daily without esophagitis before breakfast. 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
--- OUTSIDE RECORDS SUMMARY | 2020-09-22 01:47 | XMS REPORT | Summary of Care ---
:1970 Author Organization [address] [address] Care Team Providers Name Role Phone Pcp, Does Not Have A Primary Care Provider Reason for Visit Reason Comments Forms Work Release Form Talk To Nurse Work Excuse Encounter Details Date Type Department Care Team Description 08/22/2020 Telephone [facility] Anastacio Hanna (Work Re lease Infectious Diseases- MD Gregorio Form); Talk To Nurse; [address] Work Excuse [address] 6[address] [phone] [place] [address] Allergies No Known Allergiesdocumented as [...] by mouth daily without esophagitis before breakfast. qanqgqanx-snghfnja-oyst Take 1 tablet 90 tablet 1 07/11/2020 [...] Notes Telephone Encounter - Jodi Louise - 08/26/2020 1:41 PM CSTAdeel Antoine is a 50 year old male is returning call. Please fax letter to [phone] And please email a copy to patient at [email or web address] Thank you. elephone Encounter - Irma Gimenez - 08/26/2020 12:40 [...] can call patient back. 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 Irving sent email back stating he called patient and was waiting for patient to tell him where to send the letter. Being taken care of: From: Gregorio Hanna <[email or web address]> Sent: Wednesday, August 26, 2020 12:35 PM To: Irma Gimenez <[email or web address]>; Yonatan John <[email or web address]> Cc: Irma Gimenez <[email or web address]> Subject: Re: MRForeign [id number] - HELP I just talked to him. Im waiting for him to tell me where does he need the letter to be sent to. Thanks, Gregorio Irving MD PGY-4, Infectious Diseases ESS PLANNER Telephone Encounter - Carmelita Lowry - 08/26/2020 9:28 AM RITAAdeel Antoine is a 50 year old male Patient is calling checking on status of letter. Patient states he is needing letter today or will be released from his employer. Please contact at [phone] Thank you ESS PLANNER Telephone Encounter - Jodi Louise - 08/25/2020 3:04 PM Kate Antoine is a 50 year old male is calling for work excuse status. Please call patient [phone]. Thank you elephone Encounter - Jodi Louise - 08/25/2020 1:10 PM PROCESS PLANNER Adeel Antoine is a 50 year old male is calling to follow up on work excuse status states he will need FLORI or will lose job. Please call patient [phone]. Thank you. elephone Encounter - Jodi Louise - 08/25/2020 9:58 AM PROCESS PLANNER Adeel Antoine is a 50 year old male is calling to follow up on work excuse. Please call patient [phone]. Thank you. elephone Encounter - Jenna Scott [...] Office Visit Infectious Disease Gregorio Hanna MD [address] [place] [address] [phone] Health Maintenance Due Date Last [...]
--- OUTSIDE RECORDS SUMMARY | 2020-09-22 01:47 | XMS REPORT | Summary of Care ---
:1970 Author Organization [address] [address] Care Team Providers Name Role Phone Pcp, Does Not Have A Primary Care Provider Reason for Visit Reason Comments Follow-up Encounter Details Date Type Department Care Team Description 08/21/2020 Office Visit [facility] Aristides Engel, Cellulitis of right hand (Primary Dx); Infectious Diseases- MD Gregorio HIV infection, unspecified symptom statu s [place] [phone] [phone] [place] [address] Allergies No Known Allergiesdocumented as [...] by mouth daily without esophagitis before breakfast. qdzeiddwf-vmqdxuoj-ttdo Take 1 tablet 90 tablet 1 07/11/2020 [...] Comments Blood Pressure 123/84 08/21/2020 11:24 AM CAR CARDER Pulse 93 08/21/2020 11:24 AM CAR CARDER Temperature 36.9 C (98.5 F) 08/21/2020 11:22 AM CAR CARDER Respiratory Rate - - Oxygen Saturation - - Inhaled Oxygen Concentration - - Weight 85.9 kg (189 lb 6.4 oz) 08/21/2020 11:22 AM CAR CARDER Height 185.4 cm (6' 1") 08/21/2020 11:22 AM CAR CARDER Body Mass Index 24.99 08/21/2020 11:22 AM CAR CARDER documented in this encounter Progress Notes Yonatan John MD - 08/21/2020 11:30 AM CSTI personally examined the patient on 08/21/[address] Irving's note as written. I actively participated in the decision-making process. Please see the fellow's note for additional details. CARDER Gregorio Hanna MD - 08/21/2020 11:30 AM [...] Prior to Visit Medication Sig Dispense Refill iumoaiffe-psjqoaqv-ztcdzhd ala (BIKTARVY) 50-200-25 mg tablet Take 1 [...] file Gets together: Not on file Attends voodoo service: Not on file Active member of [...] Gregorio Irving M.D. PGY-4, Infectious Diseases Pager: [phone] CARDER documented in this encounter Plan of Treatment Date Type Specialty Care Team Description 01/08/2021 Office Visit Infectious Disease Gregorio Hanna MD [address] [place] [address] [phone] Health Maintenance Due Date Last Done [...]
[2020-09-22] MEDS ORDERED: NA CHLORIDE 0.9% 1,000 ML ONE (02:44)
[2020-09-22 02:59] LABS: Urine Blood NEGATIVE (NEG); Urine Glucose NEGATIVE (NEG); Urine Protein 1+ (NEG); Urine Specific Gravity 1.025 (1.005-1.030)
[2020-09-22 03:03] LABS: Absolute Lymphocytes (CBC) 1.8 K/uL (0.7-4.9); Basophils % 0.3 % (0-1.3); Hematocrit 35.6 % (39.6-49.0); Lymphocytes % 25.8 % (15.3-44.8); MPV 7.2 fL (7.6-11.3); RBC Red Blood Cell Count 3.86 M/uL (4.33-5.43)
[2020-09-22 03:05] LABS: Protime INR 1.17
[2020-09-22 03:13] LABS: Barbiturates NEGATIVE (NEGATIVE); Benzodiazepines NEGATIVE (NEGATIVE); Cocaine NEGATIVE (NEGATIVE); METHAMPHETAM POSITIVE (NEGATIVE); Methadone NEGATIVE (NEGATIVE); Opiates NEGATIVE (NEGATIVE); Phencyclidine NEGATIVE (NEGATIVE); THC Cannibis NEGATIVE (NEGATIVE)
[2020-09-22 03:26] LABS: ALT/SGPT 20 U/L (12-78); AST/SGOT 21 U/L (15-37); Albumin 3.5 g/dL (3.4-5.0); Alkaline Phosphatase 96 U/L (45-117); BUN Blood Urea Nitrogen 20 mg/dL (7-18); Bicarbonate 26 mmol/L (21-32); Bilirubin Direct 0.1 mg/dL (0-0.2); Bilirubin Total 0.6 mg/dL (0.2-1.0); Creatine Phosphokinase 188 U/L (39-308); Glucose Level 132 mg/dL (74-106); Potassium 3.5 mmol/L (3.5-5.1); Protein, Total 7.2 g/dL (6.4-8.2); Sodium Level 138 mmol/L (136-145); Troponin (Emerg Dept Use Only) < 0.02 ng/mL (0.0-0.045)
--- NOTE | 2020-09-22 04:21 | EDPHYS ---
Physician Documentation [facility] Name: Adeel Antoine Age: 50 yrs Sex: Male : 1970 Arrival Date: 09/22/2020 Time: 01:44 Bed 6 Private MD: ED Physician Shahram Oliveira HPI: 09/22 02:28 This 50 yrs old Male presents to ER via Wheelchair with complaints of mh7 Dizziness, Trouble Walking, Fast Heart Rate. 02:28 The patient presents with dizziness, lightheadedness, feeling off balance. Onset: The mh7 symptoms/episode began/occurred yesterday. Context: occurred at home, occurred while the patient was standing, just prior to the episode the patient experienced lightheadedness. Modifying factors: The symptoms are alleviated by nothing, the symptoms are aggravated by standing up. Associated signs and symptoms: Pertinent positives: nausea, Pertinent negatives: abdominal pain, agitation, ataxia, blurred vision, chest pain, combativeness, confusion, diaphoresis, focal weakness, head injury, headache, near-syncope, numbness, palpitations, seizure, shortness of breath, syncope, tingling, vomiting. Severity of symptoms: At their worst the symptoms were moderate last night, in the emergency department the symptoms have improved mildly. Historical: - Allergies: 02:17 Codeine; rr5 - Home Meds: 02:17 Lipitor Oral [Active]; rr5 - PMHx: 02:17 HIV; Kidney stones; rr5 - PSHx: 02:17 Appendectomy; rr5 - Immunization history:: Adult Immunizations up to date. - Social history:: Smoking status: Patient reports the use of cigarette tobacco products, smokes one-half pack cigarettes per day, Patient/guardian denies using street drugs. ROS: 02:28 Constitutional: Negative for fever, chills, and weight loss, Eyes: Negative for injury, mh7 pain, redness, and discharge, ENT: Negative for injury, pain, and discharge, Neck: Negative for injury, pain, and swelling, Respiratory: Negative for shortness of breath, cough, wheezing, and pleuritic chest pain, Abdomen/GI: Negative for abdominal pain, nausea, vomiting, diarrhea, and constipation, Back: Negative for injury and pain, : Negative for injury, bleeding, discharge, and swelling, MS/Extremity: Negative for injury and deformity, Skin: Negative for injury, rash, and discoloration, Neuro: Negative for headache, weakness, numbness, tingling, and seizure, Psych: Negative for depression, anxiety, suicide ideation, homicidal ideation, and hallucinations, Allergy/Immunology: Negative for hives, rash, and allergies, Endocrine: Negative for neck swelling, polydipsia, polyuria, polyphagia, and marked weight changes, Hematologic/Lymphatic: Negative for swollen nodes, abnormal bleeding, and unusual bruising. Exam: 02:28 Head/Face: Normocephalic, atraumatic. Eyes: Pupils equal round and reactive to light, mh7 extra-ocular motions intact. Lids and lashes normal. Conjunctiva and sclera are non-icteric and not injected. Cornea within normal limits. Periorbital areas with no swelling, redness, or edema. Neck: Trachea midline, no thyromegaly or masses palpated, and no cervical lymphadenopathy. Supple, full range of motion without nuchal rigidity, or vertebral point tenderness. No Meningismus. Chest/axilla: Normal chest wall appearance and motion. Nontender with no deformity. No lesions are appreciated. 02:28 Respiratory: Lungs have equal breath sounds bilaterally, clear to auscultation and percussion. No rales, rhonchi or wheezes noted. No increased work of breathing, no retractions or nasal flaring. Abdomen/GI: Soft, non-tender, with normal bowel sounds. No distension or tympany. No guarding or rebound. No evidence of tenderness throughout. Back: No spinal tenderness. No costovertebral tenderness. Full range of motion. Skin: Warm, dry with normal turgor. Normal color with no rashes, no lesions, and no evidence of cellulitis. MS/ Extremity: Pulses equal, no cyanosis. Neurovascular intact. Full, normal range of motion. Neuro: Awake and alert, GCS 15, oriented to person, place, time, and situation. Cranial nerves II-XII grossly intact. Motor strength 5/5 in all extremities. Sensory grossly intact. Cerebellar exam normal. Normal gait. 02:28 Constitutional: The patient appears in no acute distress, alert, awake, anxious. 02:28 Cardiovascular: Rate: tachycardic, Rhythm: regular, Pulses: no pulse deficits are appreciated, Heart sounds: normal, normal S1and S2, Edema: is not appreciated, JVD: is not appreciated. 02:28 Psych: Behavior/mood is cooperative, anxious, Affect is calm, Oriented to person, place, time, Patient has no thoughts/intents to harm self or others. Judgement / Insight is normal. Memory is normal. Delusions/hallucinations are not present. Vital Signs: 02:10 BP 102 / 48; Pulse 105; Resp 19; Temp 97.9; Pulse Ox 97% ; Weight 81.65 kg; Height 6 rr5 ft. 0 in. (182.88 cm); Pain 0/10; 02:10 Body Mass Index 24.41 (81.65 kg, 182.88 cm) rr5 MDM: 04:18 Differential diagnosis: cardiac arrhythmia, CVA, generalized weakness, head injury, mh7 hypovolemia, idiopathic dizziness, near-syncope, sepsis, syncope, TIA, vertigo. Data reviewed: vital signs, nurses notes, lab test result(s), cardiac enzymes, CBC, drug level(s), acetaminophen, alcohol, salicylate, electrolytes, urinalysis, urine drug screen. Data interpreted: Pulse oximetry: on room air is 97 %. Interpretation: normal. Counseling: I had a detailed discussion with the patient and/or guardian regarding: the historical points, exam findings, and any diagnostic results supporting the discharge/admit diagnosis, lab results, radiology results, the need for outpatient follow up, to return to the emergency department if symptoms worsen or persist or if there are any questions or concerns that arise at home. Response to treatment: the patient's symptoms have resolved after treatment, the patient's blood pressure is in an acceptable range, mental status has returned to baseline, the patient no longer shows bradycardia, the patient is not short of breath, the patient is not tachycardic, the patient's pain is gone, the patient's temperature has normalized, the patient is now symptom free, patient is well hydrated. 04:20 Patient medically screened. mh7 09/22 02:08 Order name: Acetaminophen; Complete Time: 03:33 rr5 09/22 02:08 Order name: Basic Metabolic Panel; Complete Time: 03:33 rr5 09/22 02:08 Order name: CBC with Diff; Complete Time: 03:20 rr5 09/22 02:08 Order name: ETOH Level; Complete Time: 03:20 rr5 09/22 02:08 Order name: Hepatic Function; Complete Time: 03:33 5 09/22 02:08 Order name: PT-INR; Complete Time: 03:20 5 09/22 02:08 Order name: Ptt, Activated; Complete Time: 03:20 5 09/22 02:08 Order name: Salicylate; Complete Time: 03:20 5 09/22 02:08 Order name: Urine Drug Screen; Complete Time: 03:20 [facility] 09/22 02:15 Order name: Urine Dipstick--Ancillary (enter results) lp1 09/22 02:16 Order name: Urine Dipstick-Ancillary; Complete Time: 03:06 EDMS 09/22 02:58 Order name: Creatine Phosphokinase; Complete Time: 03:33 EDMS 09/22 02:07 Order name: EKG - Nurse/Tech; Complete Time: 02:28 5 09/22 02:08 Order name: EKG; Complete Time: 02:09 [facility] 09/22 02:08 Order name: IV Saline Lock; Complete Time: 02:28 [facility] 09/22 02:08 Order name: Labs collected and sent; Complete Time: 02:29 5 09/22 02:08 Order name: Urine Dipstick-Ancillary (obtain specimen); Complete Time: 02:29 [facility] 09/22 02:10 Order name: CT Head Brain wo Cont [facility] 09/22 02:26 Order name: Chest Single View XRAY mh7 09/22 02:58 Order name: Troponin (Emerg Dept Use Only); Complete Time: 03:33 EDMS Administered Medications: 03:06 Drug: NS 0.9% 1000 ml Route: IV; Rate: 1000 ml; Site: right forearm; ea 04:28 Follow up: IV Status: Completed infusion; IV Intake: 1000ml rv Disposition: 09/22/20 04:20 Discharged to Home. Impression: Dizziness and giddiness, Dehydration, Methamphetamine Use. - Condition is Stable. - Discharge Instructions: Dizziness, Stimulant Use Disorder-Methamphetamines, Dehydration, Adult, Wsxe-po-Tlpk. - Medication Reconciliation Form, Thank You Letter, Antibiotic Education, Prescription Opioid Use form. - Follow up: Private Physician; When: 1 - 2 days; Reason: Worsening of condition, Recheck today's complaints, Continuance of care, Re-evaluation by your physician. - Problem is new. - Symptoms have improved. Signatures: Dispatcher [employer] EDME Amy Vee, RN Greg Mariscal ea RN RN Manish Ward RN RN rr5 Shahram Oliveira MD MD 7 Corrections: (The following items were deleted from the chart) 02:58 02:10 TROPONIN (EMERG DEPT USE ONLY)+C.LAB.BRZ ordered. EDME EDMS 02:58 02:10 CREATINE PHOSPHOKINASE+C.LAB.BRZ ordered. [facility] EDMS 03:22 02:28 Associated signs and symptoms: Pertinent positives: nausea, syncope, Pertinent mh7 negatives: abdominal pain, agitation, ataxia, blurred vision, chest pain, combativeness, confusion, diaphoresis, focal weakness, head injury, headache, numbness, palpitations, seizure, shortness of breath, syncope, tingling, vomiting, mh7 04:28 04:20 09/22/2020 04:20 Discharged to Home. Impression: Dizziness and giddiness; rv Dehydration; Methamphetamine Use. Condition is Stable. Forms are Medication Reconciliation Form, Thank You Letter, Antibiotic Education, Prescription Opioid Use. Follow up: Private Physician; When: 1 - 2 days; Reason: Worsening of condition, Recheck today's complaints, Continuance of care, Re-evaluation by your physician. Problem is new. Symptoms have improved. 7
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
[2020-09-22 04:33] VITALS: BP 102/48; TEMP 97.9; O2SAT 97
--- NOTE | 2020-09-22 07:20 | EKG ---
Test Date: 2020-09-22 Test Time: 01:57:14 Electric Motor Control Assembler: RR MEASUREMENT RESULTS: Intervals: Rate: 108 NH: 146 QRSD: 82 QT: 324 QTc: 434 [place]: P: 92 NH: 146 QRS: 82 T: 76 INTERPRETIVE STATEMENTS: Sinus tachycardia Otherwise normal ECG No previous ECG available for comparison Electronically Signed On 09-22-20 07:20:14 BUSINESS EDUCATION INSTRUCTOR by Enrrique Pierce
--- NOTE | 2020-09-22 08:02 | RAD REPORT ---
EXAM DESCRIPTION: Kishan Single View09/22/2020 2:48 am CLINICAL HISTORY: Tachycardia COMPARISON: 2011 FINDINGS: The lungs appear clear of acute infiltrate. The heart is normal size IMPRESSION: No acute abnormalities displayed
--- NOTE | 2020-09-22 11:40 | RAD REPORT ---
EXAM DESCRIPTION: CT - Head Brain Wo Cont - 09/22/2020 8:59 am CLINICAL HISTORY: DIZZINESS COMPARISON: None available TECHNIQUE: Axial CT of the head obtained from the skull apex to the skull base without contrast. FINDINGS: No acute intracranial hemorrhage identified. No mass, mass effect, shift of the midline, a bnormal extra-axial fluid collection or CT evidence of acute ischemic change identified. The ventricu lar system and sulcal spaces are nonenlarged. Scattered areas of hypodensity throughout the suprate ntorial white matter are nonspecific and may be related to chronic small vessel ischemic change. The visualized paranasal sinuses and mastoid air cells are well aerated. No skull fracture identifi ed. Visualized orbits and globes are unremarkable. Atherosclerotic calcification of the intracranial internal carotid arteries. IMPRESSION: 1. No acute intracranial abnormality by CT criteria. This exam was performed according to our departmental dose-optimization program, which includes autom ated exposure control, adjustment of the mA and/or kV according to patient size and/or use of iterati ve reconstruction technique. Electronically signed by: Luis Ortiz 09/22/2020 2:54 AM SHOP SUPERVISOR Due to temporary technical issues with the PACS/Fluency reporting system, reports are being signed by the in house radiologists without review as a courtesy to insure prompt reporting. The interpreting radiologist is fully responsible for the content of the report.
== END 2020-09-22 04:28 | disposition home or self-care (01) ==
LOC: ER 01:41
DX: R42 Dizziness and giddiness (principal); E86.0 Dehydration; F15.90 Other stimulant use, unspecified, uncomplicated; F17.210 Nicotine dependence, cigarettes, uncomplicated
CPT/HCPCS: 36415; 70450; 71045; 80048; 80076; 80307; 80320; 80329; 81003; 82550; 84484; 85025; 85610; 85730; 93005; 96360; 99284; J7030

== ENCOUNTER 2022-05-21 08:24 | Emergency (ER) | payer SELFPAY ==
--- OUTSIDE RECORDS SUMMARY | 2022-05-21 08:28 | XMS REPORT | Continuity of Care Document ---
:1970 Author Organization [facility] t Address [address] [place] [address] Care Team Providers Name Role Phone LEI HANNA Primary Care Physician Unavailable MEGHANA GARSIA Attending Clinician Unavailable Lina Merritt RN Attending Clinician Unavailable Renee Lorenzo LVN Attending Clinician Unavailable Visit, [facility] Id Nurse Attending Clinician Unavailable Meghana Garsia MD Attending Clinician Sanjuana Kerns Attending Clinician SANJUANA KERNS Attending Clinician Unavailable Devonte Hightower Attending Clinician Lei Hanna MD Attending Clinician Problems Condition Condition Condition Status Onset Resolution Last Treating Co mments Source Name Details Category Date Date Treatment Clinician Date Cellulitis Cellulitis Disease Active 2021-0 U nivers of left of left 4-23 ity of lower leg lower leg 00:00: [address] Furunculos Furunculos Disease Active 2020-0 U nivers is is 6-03 ity of 00:00: [address] 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 Social History Social Habit Start Date Stop Date Quantity Comments Source History [facility] o f Alcohol Frequency [place] [facility] History [facility] o f Alcohol Std Drinks [place] [facility] History [facility] o f Alcohol Binge [place] [facility] History of tobacco Cigarette Smoker University of use [facility] Exposure to 2022-03-26 2022-04-05 Not sure University of SARS-CoV-2 (event) 00:00:00 12:05:00 [facility] Tobacco use and 2022-03-29 2022-03-29 User of Universit y of exposure 00:00:00 00:00:00 smokeless [facility] tobacco [place] Cigarettes smoked 2022-03-29 2022-03-29 Univers ity of current (pack per 00:00:00 00:00:00 ) - Reported Branch Alcohol intake 2022-03-29 2022-03-29 Current drinker Unive rsity of 00:00:00 00:00:00 of alcohol [facility] (finding) [place] Alcohol Comment 2018-06-08 2018-06-08 12 pack beer Univers ity of 00:00:00 00:00:[address] [facility] Sex Ass[birth year] At [birth year] Universit y of 00:00:00 00:00:00 [facility] Smoking Status Start Date Stop Date Source Smokes tobacco daily 2022-03-29 00:00:[address] [facility] Medications Ordered Filled Start Stop Current Ordering Indication Dosage Frequency Signature Comments Components Source Medication Medication Date Date Medication? Clinician (SIG) Name Name penicillin 2021- No [id number] 2.410 U nivers g 04-05 ity of benzathine 19:15: 18:10 [place] (BICILLIN 00 :00 Medical L-A) Branch injection 2.4 Million Units penicillin 2021- No [id number] 2.410 2.4 U nivers g 04-05- Million ity of benzathine 19:15: 18:10 [place] ([place] :00 Intramuscu Medi ethan L-A) lar, ONCE, Branch injection 1 dose, On 2.4 Million Mon Units 04/05/22 at 1415, FLORI
Re ason for Anti-Infec tive: Documented Infection< br>Documen lars Infection Site: Blood
D uration of Therapy: Other (see Comments) penicillin 2021- No [id number] 2.410 U nivers g 03-29 ity of benzathine 18:45: 17:31 [place] (BICILLIN 00 :00 Medical L-A) Branch injection 2.4 Million Units penicillin 2021- No [id number] 2.410 2.4 U nivers g 03-29- Million ity of benzathine 18:45: 17:31 [place] ([place] :00 Intramuscu Medi ethan L-A) lar, ONCE, Branch injection 1 dose, On 2.4 Million Mon Units 03/29/22 at 1345, FLORI
Re ason for Anti-Infec tive: Documented Infection< br>Documen lars Infection Site: Blood
D uration of Therapy: Other (see Comments) penicillin 2021- No [id number] 2.410 U nivers g 03-22 ity of benzathine 20:15: 19:03 [place] (BICILLIN 00 :00 Medical L-A) Branch injection 2.4 Million Units penicillin 2021- No [id number] 2.410 2.4 U nivers g 03-22- Million ity of benzathine 20:15: 19:03 [place] ([place]ILL[place] 00 :00 Intramuscu Medi ethan L-A) lar, ONCE, Branch injection 1 dose, On 2.4 Million Mon Units 03/22/22 at 1515, FLORI
Re ason for Anti-Infec tive: Documented Infection< br>Documen lars Infection Site: Blood
D uration of Therapy: Other (see Comments) bictegrav-e Yes [id number] 1{tbl} Take 1 Univers mtricit-ten 5-05 tablet by ity of ofov ala 00:00: mouth [place] (BIKTARVY) 00 daily. Medical 50-200-25 Branch mg tablet doxycycline Yes [id number] 100mg Take 1 Univers hyclate 100 5-05 capsule by it y of mg capsule 00:00: mouth [place] 00 every 12 Medical (twelve) Branch hours. chlorhexidi Yes [id number] Apply to Univers ne 4 % 5-05 area(s) ity of external 00:00: once daily Artem as liquid 00 as needed Medical for Wound Branch care. bictegrav-e Yes [id number] 1{tbl} Take 1 Univers mtricit-ten 5-05 tablet by ity of ofov ala 00:00: mouth [place] (BIKTARVY) 00 daily. Medical 50-200-25 Branch mg tablet chlorhexidi Yes [id number] Apply to Univers ne 4 % 5-05 area(s) ity of external 00:00: once daily Artem as liquid 00 as needed Medical for Wound Branch care. bictegrav-e Yes [id number] 1{tbl} Take 1 Univers mtricit-ten 5-05 tablet by ity of ofov ala 00:00: mouth [place] (BIKTARVY) 00 daily. Medical 50-200-25 Branch mg tablet chlorhexidi Yes [id number] Apply to Univers ne 4 % 5-05 area(s) ity of external 00:00: once daily Artem as liquid 00 as needed Medical for Wound Branch care. bictegrav-e Yes [id number] 1{tbl} Take 1 Univers mtricit-ten 5-05 tablet by ity of ofov ala 00:00: mouth [place] (BIKTARVY) 00 daily. Medical 50-200-25 Branch mg tablet chlorhexidi 0 Yes [id number] Apply to Univers ne 4 % 5-05 area(s) ity of external 00:00: once daily Artem as liquid 00 as needed Medical for Wound Branch care. bictegrav-e Yes [id number] 1{tbl} Take 1 Univers mtricit-ten 5-05 tablet by ity of ofov ala 00:00: mouth [place] (BIKTARVY) 00 daily. Medical 50-200-25 Branch mg tablet chlorhexidi Yes [id number] Apply to Univers ne 4 % 5-05 area(s) ity of external 00:00: once daily Artem as liquid 00 as needed Medical for Wound Branch care. doxycycline 2021- No [id number] 100mg Take 1 Univers hyclate 100 5-05 07-18 capsule by i ty of mg capsule 00:00: 00:00 mouth [place] 00 :00 every 12 Medical (twelve) Branch hours. ATORVASTATI Yes [id number] 40mg TAKE 1 Univers N 40 mg 6-27 TABLET BY ity of tablet 00:00: MOUTH AT [place] 00 BEDTIME. Medical Branch ATORVASTATI Yes [id number] 40mg TAKE 1 Univers N 40 mg 6-27 TABLET BY ity of tablet 00:00: MOUTH AT [place] 00 BEDTIME. Medical Branch ATORVASTATI Yes [id number] 40mg TAKE 1 Univers N 40 mg 6-27 TABLET BY ity of tablet 00:00: MOUTH AT [place] 00 BEDTIME. Medical Branch ATORVASTATI Yes [id number] 40mg TAKE 1 Univers N 40 mg 6-27 TABLET BY ity of tablet 00:00: MOUTH AT [place] 00 BEDTIME. Medical Branch ATORVASTATI Yes [id number] 40mg TAKE 1 Univers N 40 mg 6-27 TABLET BY ity of tablet 00:00: MOUTH AT [place] 00 BEDTIME. Medical Branch Immunizations Ordered Filled Immunization Date Status Comments [facility] e Immunization Name Name Influenza Virus 2021-10-15 Completed Universit y of Vaccine Quad IM, 00:00:00 [place] Me dical Preserv and ABX Branch Free 6 MO-64 YRS Influenza Virus 2021-10-15 Completed Universit y of Vaccine Quad IM, 00:00:00 [place] Me dical Preserv and ABX Branch Free 6 MO-64 YRS Influenza Virus 2021-10-15 Completed Universit y of Vaccine Quad IM, 00:00:00 [place] Me dical Preserv and ABX Branch Free 6 MO-64 YRS Influenza Virus 2021-10-15 Completed Universit y of Vaccine Quad IM, 00:00:00 [place] Me dical Preserv and ABX Branch Free 6 MO-64 YRS Influenza Virus 2021-10-15 Completed Universit y of Vaccine Quad IM, 00:00:00 [place] dical Preserv and ABX Branch Free 6 MO-64 YRS SARS-COV-2 COVID-19 2021-06-17 Completed Unive rsity of PFIZER VACCINE 00:00:00 [facility] [place] [facility] SARS-COV-2 COVID-19 2021-06-17 Completed Unive rsity of PFIZER VACCINE 00:00:00 [facility] [place] [facility] SARS-COV-2 COVID-19 2021-06-17 Completed Unive rsity of PFIZER VACCINE 00:00:00 [facility] Branch SARS-COV-2 COVID-19 2021-06-17 Completed Unive rsity of PFIZER VACCINE 00:00:00 [facility] [place] [facility] SARS-COV-2 COVID-19 2021-06-17 Completed Unive rsity of PFIZER VACCINE 00:00:00 [facility] [place] [facility] SARS-COV-2 COVID-19 2020-12-24 Completed Unive rsity of PFIZER VACCINE 00:00:00 [facility] [place] [facility] SARS-COV-2 COVID-19 2020-12-24 Completed Unive rsity of PFIZER VACCINE 00:00:00 [facility] [place] [facility] SARS-COV-2 COVID-19 2020-12-24 Completed Unive rsity of PFIZER VACCINE 00:00:00 [facility] [place] [facility] SARS-COV-2 COVID-19 2020-12-24 Completed Unive rsity of PFIZER VACCINE 00:00:00 [facility] Branch SARS-COV-2 COVID-19 2020-12-24 Completed Unive rsity of PFIZER VACCINE 00:00:00 [facility] [place] [facility] SARS-COV-2 COVID-19 2020-12-03 Completed Unive rsity of PFIZER VACCINE 00:00:00 [facility] [place] [facility] SARS-COV-2 COVID-19 2020-12-03 Completed Unive rsity of PFIZER VACCINE 00:00:00 [facility] [place] [facility] SARS-COV-2 COVID-19 2020-12-03 Completed Unive rsity of PFIZER VACCINE 00:00:00 [facility] [place] [facility] SARS-COV-2 COVID-19 2020-12-03 Completed Unive rsity of PFIZER VACCINE 00:00:00 [facility] [place] [facility] SARS-COV-2 COVID-19 2020-12-03 Completed Unive rsity of PFIZER VACCINE 00:00:00 [facility] [place] [facility] Influenza Virus 2019-07-05 Completed Universit y of Vaccine Quad IM 3+ 00:00:00 [facility] [place] [facility] Twinrix (hep a/hep 2019-07-05 Completed Univer sity of b) 00:00:00 [facility] Pneumococcal 2019-07-05 Completed University o f Polysaccharide, 00:00:00 [facility] ical PPSV23 (PNEUMOVAX) Branch Influenza Virus 2019-07-05 Completed Universit y of Vaccine Quad IM 3+ 00:00:00 [facility] [place] [facility] Twinrix (hep a/hep 2019-07-05 Completed Univer sity of b) 00:00:00 [facility] Pneumococcal 2019-07-05 Completed University o f Polysaccharide, 00:00:00 [place] Med ical PPSV23 (PNEUMOVAX) Branch Influenza Virus 2019-07-05 Completed Universit y of Vaccine Quad IM 3+ 00:00:00 [facility] [place] [facility] Twinrix (hep a/hep 2019-07-05 Completed Univer sity of b) 00:00:00 [facility] Pneumococcal 2019-07-05 Completed University o f Polysaccharide, 00:00:00 [place] Med ical PPSV23 (PNEUMOVAX) Branch Influenza Virus 2019-07-05 Completed Universit y of Vaccine Quad IM 3+ 00:00:00 [facility] [place] [facility] Twinrix (hep a/hep 2019-07-05 Completed Univer sity of b) 00:00:00 [facility] Pneumococcal 2019-07-05 Completed University o f Polysaccharide, 00:00:00 [facility] ical PPSV23 (PNEUMOVAX) Branch Influenza Virus 2019-07-05 Completed Universit y of Vaccine Quad IM 3+ 00:00:00 [facility] [place] [facility] Twinrix (hep a/hep 2019-07-05 Completed Univer sity of b) 00:00:00 [facility] Pneumococcal 2019-07-05 Completed University o f Polysaccharide, 00:00:00 [place] Med ical PPSV23 (PNEUMOVAX) Branch Pneumococcal 13 2019-03-29 Completed Universit y of Conjugate, PCV13 00:00:00 [facility] dical (Prevnar 13) Branch Pneumococcal 13 2019-03-29 Completed Universit y of Conjugate, PCV13 00:00:00 [place] [facility]ical (Prevnar 13) Branch Pneumococcal 13 2019-03-29 Completed Universit y of Conjugate, PCV13 00:00:00 [facility] dical (Prevnar 13) Branch Pneumococcal 13 2019-03-29 Completed Universit y of Conjugate, PCV13 00:00:00 [facility] dical (Prevnar 13) Branch Pneumococcal 13 2019-03-29 Completed Universit y of Conjugate, PCV13 00:00:00 [facility] dical (Prevnar 13) Branch Twinrix (hep a/hep 2018-11-16 Completed Univer sity of b) 00:00:00 [facility] Influenza Virus 2018-11-16 Completed Universit y of Vaccine Quad .5 mL 00:00:00 [facility] IM 6+ MO Branch Twinrix (hep a/hep 2018-11-16 Completed Univer sity of b) 00:00:00 [facility] Influenza Virus 2018-11-16 Completed Universit y of Vaccine Quad .5 mL 00:00:00 [place] Medical IM 6+ MO Branch Twinrix (hep a/hep 2018-11-16 Completed Univer sity of b) 00:00:00 [facility] Influenza Virus 2018-11-16 Completed Universit y of Vaccine Quad .5 mL 00:00:00 [place] Medical IM 6+ MO Branch Twinrix (hep a/hep 2018-11-16 Completed Univer sity of b) 00:00:00 [facility] Influenza Virus 2018-11-16 Completed Universit y of Vaccine Quad .5 mL 00:00:00 [place] Medical IM 6+ MO Branch Twinrix (hep a/hep 2018-11-16 Completed Univer sity of b) 00:00:00 [facility] Influenza Virus 2018-11-16 Completed Universit y of Vaccine Quad .5 mL 00:00:00 [place] Medical IM 6+ MO Branch Twinrix (hep a/hep 2018-09-21 Completed Univer sity of b) 00:00:00 [facility] TDAP 2018-09-21 Completed University of 00:00:00 [facility] Twinrix (hep a/hep 2018-09-21 Completed Univer sity of b) 00:00:00 [facility] TDAP 2018-09-21 Completed University of 00:00:00 [facility] Twinrix (hep a/hep 2018-09-21 Completed Univer sity of b) 00:00:00 [facility] TDAP 2018-09-21 Completed University 00:00:00 [facility] Twinrix (hep a/hep 2018-09-21 Completed Univer sity of b) 00:00:00 [facility] TDAP 2018-09-21 Completed University 00:00:00 [facility] Twinrix (hep a/hep 2018-09-21 Completed [facility]iver [facility]) [facility] 00:[facility]:00 [facility] Vital Signs Vital Name Observation Time Observation Value Comments Source Body weight 2022-04-05 18:03:00 [facility].555 [facility] [place] [facility] BMI 2022-04-05 18:03:00 24.68 kg/m2 [facility] Body temperature 2022-03-29 16:53:00 [facility].22 [facility] 2022-03-29 16:53:00 82.555 kg Universi ty [facility] BMI 2022-03-29 16:53:00 24.68 kg/m2 [place] [facility] Body weight 2022-03-22 18:56:00 82.781 kg [place] [facility] BMI 2022-03-22 18:56:00 24.75 kg/m2 [facility] Procedures This patient has no known procedures. Encounters Start End Encounter Admission Attending Care Care Encounter Source Date/Time Date/Time Type Type Clinicians Facility Department ID 2022-06-10 2022-06-10 Outpatient Elisabeth GARSIA [facility] [id number] Univers 09:30:00 09:30:00 MEGHANA [id number] [facility] 2022-05-20 2022-05-20 Outpatient Elisabeth GARSIA [facility] [id number] Univers 10:00:00 10:00:00 MEGHANA [facility] 2022-05-20 2022-05-20 GWEN [place] [id number] Univers 00:00:00 00:00:00 Management Lina L Y HEALTH [id number] ity of CL[place] [id number] [address] 2022-05-19 2022-05-19 Telephone GILLES LorenzoIT [id number] Univers 00:00:00 00:00:00 Renee L Y HEALTH [id number] ity of [place] [id number] [address] 2022-04-05 2022-04-05 [facility] [id number] Univers 13:00:00 13:01:14 MEGHANA lozada [facility] 2022-04-05 2022-04-05 Nurse Visit, [facility] Id Nurse UNIVERSIT 1.2. [id number] Univers 13:00:00 13:01:14 Visit Alvaro Meghana [facility] [id number] ity of [place] [id number] [address] 2022-04-05 2022-04-05 Outpatient R [facility] [id number] Univers 13:00:00 13:00:00 [id number] ity [facility] 2022-03-29 2022-03-29 Nurse Visit, [facility] Id Nurse UNIVERSIT 1.2. [id number] Univers 13:00:00 13:15:00 Visit Sanjuana Kerns [facility] [id number] ity of [place] [id number] [address] 2022-03-29 2022-03-29 Outpatient R JASPER [facility] [id number] Univers 13:00:00 13:00:00 SANJUANA itrox [facility] 2022-03-22 2022-03-22 Nurse Visit, [facility] Id Nurse UNIVERSIT 1.2. [id number] Univers 13:00:00 13:15:00 Visit Alvaro Meghana [facility] [id number] ity of [place] [id number] [place] [address] Branch 2020-09-04 2020-09-04 [facility] [id number] 00:00:00 00:00:00 Secure Msg Whitney [facility] [id number] [facility] 4.2.7.2.686 [id number] 2020-08-21 2020-08-21 Office [facility] [id number] 10:54:20 11:58:50 Visit Toro [facility] [id number] [facility] 4.2.7.2.686 [id number] Results Test Description Test Time Test Comments Results Result Comments Source SARS-CoV-2 (COVID-19), RT-PCR/TMA 2021-10-01 15:38:41 Test Item Value Reference Range Interpretation Comme nts SARS-CoV-2 INTERPRETATION NEGATIVE SEE NOTE S ARS-CoV-2 RNA NOT (test code = 86414) DETECTED Negative results do not preclude SARS-C oV-2 infection and should notb e used as the sole basis for patient management deci sions. Negativeresults must be combined with c linical observations, p atient history,and epi demiological information. Op timum specimen types and timin gfor peak viral levels during i nfections caused by SARS-CoV-2 h ave notbeen determined. Col lection of multiple specim ens or types ofspecimens may be necessary to detect virus. I mproper specimencollect ion and handling, seque nce variability under primers/p robes,or organism presen t below the limit of detect ion may lead to falsenegative r esults. Positive and negative pr edictive values oftesting are h ighly dependent on prevalence. False negative testresults are more likely when prevalence is high. SOURCE (test code = 16120) NASOPHARYNGEAL Note: Methodology is Geronimo Jake Real-Time RT-PCR. The expected result or reference range is NEGATI VE (Not Detected). For more information regarding COVID -19 testing to include clinica linformation, methodology det ail, intended use, FDA author ization andrecommended fact sheets for patients or a lthcare providers, see [facility] Announcement: S ARS-CoV-2 (COVID-19) by N AAT at URL below (note,fact shee ts are provided by method given in report:https:// www.[employer]/ clinicians/rolando nt-communication s/ Alternativel y, see downloadable PD F fact sheet at:https://www. [employer]/COVI D-19-RT-PCR UNL ESS OTHERWISE INDICATED, ALL TESTING PERFORMED [facility], [facility]. [address] [place] [address] 4 GROUND SUPPORT EQUIPMENT MECHANIC: SANJUANA BANEGAS M.D. [facility] [id number] [facility] [place]. [id number]
[2022-05-21 08:51] LABS: Absolute Lymphocytes (CBC) 1.9 K/uL (0.7-4.9); Hematocrit 39.8 % (39.6-49.0); Lymphocytes % 16.5 % (15.3-44.8); MCV 87.2 fL (80-100); MPV 6.7 fL (7.6-11.3); RBC Red Blood Cell Count 4.56 M/uL (4.33-5.43)
[2022-05-21] MEDS ORDERED: MORPHINE 2 MG/ML SYR ONE (09:00)
[2022-05-21] MEDS ORDERED: KETOROLAC 30 MG/ML INJ ONE (09:01)
[2022-05-21] MEDS ORDERED: NA CHLORIDE 0.9% 1,000 ML ONE (09:01)
[2022-05-21] MEDS ORDERED: ONDANSETRON 4 MG/2 ML VIAL ONE (09:01)
[2022-05-21 09:34] LABS: Albumin 3.9 g/dL (3.4-5.0); Bilirubin Total 0.5 mg/dL (0.2-1.0); Protein, Total 7.9 g/dL (6.4-8.2)
[2022-05-21 09:39] LABS: Potassium 4.1 mmol/L (3.5-5.1)
--- NOTE | 2022-05-21 10:04 | RAD REPORT ---
EXAM DESCRIPTION: CTAbdomen Pelvis W Contrast - 05/21/2022 9:52 am CLINICAL HISTORY: Abdominal pain. sdaf COMPARISON: No comparisons TECHNIQUE: Biphasic CT imaging of the abdomen and pelvis was performed with 100 ml non-ionic IV cont rast. All CT scans are performed using dose optimization technique as appropriate and may include automated exposure control or mA/KV adjustment according to patient size. FINDINGS: The lung bases are clear. The liver, spleen, pancreas, adrenal glands are within normal limits. 19 mm cyst is present inferior anterior left kidney. Mild right hydronephrosis and hydroureter is present caused by 4 mm stone mid r ight ureter. No bowel obstruction, free air, free fluid or abscess. Appendectomy. No evidence of significant lym phadenopathy. No suspicious bony findings. IMPRESSION: 4 mm stone is present mid right ureter causing [id number] right-sided hydronephros is and hydroureter.
[2022-05-21 11:45] LABS: Urine Blood 1+ (Negative); Urine Glucose Negative (Negative); Urine Protein Negative (Negative); Urine Specific Gravity 1.015 (1.005-1.030)
--- NOTE | 2022-05-21 11:46 | ER ---
Nurse's Notes [facility] Name: Adeel Antoine Age: 51 yrs Sex: Male : 1970 Arrival Date: 05/21/2022 Time: 08:25 Bed 16 Private MD: Diagnosis: Kidney Stone/ Calculus in urethra Presentation: 05/21 08:34 Chief complaint: Patient states: sharp RLQ pain that began at 0430 this am with nausea. ss Coronavirus screen: Client denies travel out of the [place] in the last 14 days. Ebola Screen: Patient denies exposure to infectious person. Patient denies travel to an Ebola-affected area in the 21 days before illness onset. Initial Sepsis Screen: Does the patient meet any 2 criteria? No. Patient's initial sepsis screen is negative. Does the patient have a suspected source of infection? No. Patient's initial sepsis screen is negative. Risk Assessment: Do you want to hurt yourself or someone else? Patient reports no desire to harm self or others. Onset of symptoms was May 21, 2022 at 04:30. 08:34 Method Of Arrival: Ambulatory 08:34 Acuity: JEREMIAS 3 ss Historical: - Allergies: 08:39 Codeine; ss - PMHx: 08:39 HIV; Kidney stones; ss - PSHx: 08:39 Appendectomy; ss - Social history:: Smoking status: Patient reports the use of cigarette tobacco products, smokes one-half pack cigarettes per day. Screenin:55 Abuse screen: Denies threats or abuse. Denies injuries from another. Nutritional 6 screening: No deficits noted. Tuberculosis screening: No symptoms or risk factors identified. 08:55 Fall Risk IV access (20 points). [facility] Assessment: 08:50 General: Appears distressed, uncomfortable, Behavior is anxious, restless, jh6 uncooperative. 08:50 Pain: Complains of pain in right lower quadrant Pain currently is 10 out of 10 on a 6 pain scale. Quality of pain is described as sharp, shooting, Pain began suddenly, 4 hours ago. Is continuous. GI: Abdomen is tender to palpation in right lower quadrant. 09:00 Reassessment: pt yelling when walked into room with medication. pt then rolled off of [facility] bed onto the flood and refused to get up. stated that he couldn't move. advised that i was unable to get to his iv on the floor and that i could help him get u p to bed. Pt then continued to scream and curs at nursing staff and got up on knees and while yelling "fuck all you mother fuckers " pushed the locked bed 2 feet across the room. mother was at bedside and was also attempting to calm pt down and have him get back into bed so that pain meds and fluids could be given. pt after 2-3 min of yelling got back into bed on his knees and i was able to start fluids and meds. Bed rails then placed up x 2 call light placed back in bed and mother continued to bed at bedside. 09:58 Reassessment: Patient is alert, oriented x 3, equal unlabored respirations, skin jh6 warm/dry/pink. Patient denies pain at this time. Patient states feeling better. GI: Bowel sounds present X 4 quads. 11:02 Reassessment: Patient and/or family updated on plan of care and expected duration. Pain jh6 level reassessed. Patient is alert, oriented x 3, equal unlabored respirations, skin warm/dry/pink. pt was sleeping when walked into room. Patient denies pain at this time. Vital Signs: 08:34 BP 146 / 107; Pulse 78; Resp 20; Temp 97.0(TE); Pulse Ox 100% on R/A; Weight 83.01 kg; ss Height 6 ft. 0 in. (182.88 cm); Pain 10/10; 10:00 BP 106 / 74; Pulse 68; Resp 17; Pulse Ox 100% ; Pain 4/10; jh6 11:00 BP 117 / 77; Pulse 65; Resp 17; Pulse Ox 100% ; Pain 0/10; jh6 08:34 Body Mass Index 24.82 (83.01 kg, 182.88 cm) ED Course: 08:25 Patient arrived in ED. [email or web address] 08:26 King Ramirez is PHCP. jl9 08:26 Osvaldo Rudolph MD is Attending Physician. jl9 08:27 Alisa Harris, CLARA is Primary Nurse. jh6 08:39 Triage completed. ss 08:39 Arm band placed on right wrist. 08:47 Inserted saline lock: 22 gauge in right forearm, using aseptic technique. Blood 3 collected. 08:55 Bed in low position. Call light in reach. Side rails up X 1. Adult w/ patient. 6 09:[address] via stretcher. jh6 09:54 CT Abd/Pelvis - IV Contrast Only In Process Unspecified. EDMS 11:05 No provider procedures requiring assistance completed. 6 11:45 Urine collected: clean catch specimen, cloudy. 3 11:58 IV discontinued, intact, bleeding controlled, No redness/swelling at site. Pressure 6 dressing applied. Administered Medications: 09:02 Drug: NS 0.9% 1000 ml Route: IV; Rate: 1 bolus; Site: right forearm; 6 09:02 Drug: morphine 2 mg Route: IVP; Infused Over: 4 mins; Site: right forearm; 6 09:02 Drug: Ketorolac 30 mg Route: IVP; Site: right forearm; 6 09:03 Drug: Zofran (Ondansetron) 4 mg Route: IVP; Site: right forearm; 6 Medication: 11:05 VIS not applicable for this client. [facility] Outcome: 11:45 Discharge ordered by . [email or web address] 11:57 Discharged to home ambulatory. 6 11:57 Condition: improved 11:57 Discharge instructions given to patient, Instructed on discharge instructions, follow up and referral plans. Demonstrated understanding of instructions, follow-up care, medications, pt given instructions with urine filter. Prescriptions given X 2. 11:59 Patient left the ED. [facility] Signatures: Dispatcher [employer] EDOH Evelyn Brink RN RN ss Garcia, Rubi 4 Marisol Swanson 3 Alisa Harris RN RN 6 King Ramirez9 Corrections: (The following items were deleted from the chart) 09:58 09:51 Reassessment: pt yelling when walked into room with medication. pt then rolled deirdre off of bed onto the flood and refused to get up. stated that he couldn't move. advised that i was unable to get to his iv on the floor and that i could help him get u p to bed. Pt then continued to scream and curs at nursing staff and got up on knees and while yelling "fuck all you mother fuckers " pushed the locked bed 2 feet across the room. mother was at bedside and was also attempting to calm pt down and have him get back into bed so that pain meds and fluids could be given. pt after 2-3 min of yelling got back into bed on his knees and i was able to start fluids and meds. Bed rails then placed up x 2 call light placed back in bed and mother continued to bed at bedside. jh6
--- NOTE | 2022-05-21 11:46 | EDPHYS ---
Physician Documentation [facility] Name: Adeel Antoine Age: 51 yrs Sex: Male : 1970 Arrival Date: 05/21/2022 Time: 08:25 Bed 16 Private MD: SUNIL Physician Osvaldo Rudolph HPI: 05/21 09:07 This 51 yrs old Male presents to ER via Ambulatory with complaints of jl9 Abdominal Pain. Patient reports a sudden onset abdominal pain that woke him up from his sleep this morning. . 09:07 The patient presents with abdominal pain. Onset: The symptoms/episode began/occurred jl9 this morning. The symptoms do not radiate. Associated signs and symptoms: Pertinent positives: Nausea. , Pertinent negatives:. The symptoms are described as sharp. Modifying factors: The symptoms are alleviated by nothing, the symptoms are aggravated by nothing. Severity of pain: in the emergency department the pain is a 7 / 10. Historical: - Allergies: 08:39 Codeine; ss - PMHx: 08:39 HIV; Kidney stones; ss - PSHx: 08:39 Appendectomy; ss - Social history:: Smoking status: Patient reports the use of cigarette tobacco products, smokes one-half pack cigarettes per day. ROS: 09:09 Constitutional: Negative for fever, chills, and weight loss, Eyes: Negative for injury, jl9 pain, redness, and discharge, ENT: Negative for injury, pain, and discharge, Neck: Negative for injury, pain, and swelling, Cardiovascular: Negative for chest pain, palpitations, and edema, Respiratory: Negative for shortness of breath, cough, wheezing, and pleuritic chest pain. 09:09 Back: Negative for injury and pain, : Negative for injury, bleeding, discharge, and swelling, MS/Extremity: Negative for injury and deformity, Skin: Negative for injury, rash, and discoloration, Neuro: Negative for headache, weakness, numbness, tingling, and seizure, Psych: Negative for depression, anxiety, suicide ideation, homicidal ideation, and hallucinations, Allergy/Immunology: Negative for hives, rash, and allergies, Endocrine: Negative for neck swelling, polydipsia, polyuria, polyphagia, and marked weight changes, Hematologic/Lymphatic: Negative for swollen nodes, abnormal bleeding, and unusual bruising. 09:09 Abdomen/GI: Positive for abdominal pain, nausea. Exam: 09:09 Constitutional: This is a well developed, well nourished patient who is awake, alert, jl9 and in no acute distress. Head/Face: Normocephalic, atraumatic. Eyes: Pupils equal round and reactive to light, extra-ocular motions intact. Lids and lashes normal. Conjunctiva and sclera are non-icteric and not injected. Cornea within normal limits. Periorbital areas with no swelling, redness, or edema. ENT: Mucous membranes moist. Neck: Trachea midline, no thyromegaly or masses palpated, and no cervical lymphadenopathy. Supple, full range of motion without nuchal rigidity, or vertebral point tenderness. No Meningismus. Chest/axilla: Normal chest wall appearance and motion. Nontender with no deformity. No lesions are appreciated. Cardiovascular: Regular rate and rhythm with a normal S1 and S2. No gallops, murmurs, or rubs. Normal PMI, no JVD. No pulse deficits. Respiratory: Lungs have equal breath sounds bilaterally, clear to auscultation and percussion. No rales, rhonchi or wheezes noted. No increased work of breathing, no retractions or nasal flaring. 09:09 Back: No spinal tenderness. No costovertebral tenderness. Full range of motion. Skin: Warm, dry with normal turgor. Normal color with no rashes, no lesions, and no evidence of cellulitis. MS/ Extremity: Pulses equal, no cyanosis. Neurovascular intact. Full, normal range of motion. Neuro: Awake and alert, GCS 15, oriented to person, place, time, and situation. Cranial nerves II-XII grossly intact. Motor strength 5/5 in all extremities. Sensory grossly intact. Cerebellar exam normal. Normal gait. Psych: Awake, alert, with orientation to person, place and time. Behavior, mood, and affect are within normal limits. 09:09 Abdomen/GI: Inspection: abdomen appears normal, Bowel sounds: normal, Palpation: mild abdominal tenderness, in all quadrants. Vital Signs: 08:34 BP 146 / 107; Pulse 78; Resp 20; Temp 97.0(TE); Pulse Ox 100% on R/A; Weight 83.01 kg; ss Height 6 ft. 0 in. (182.88 cm); Pain 10/10; 10:00 BP 106 / 74; Pulse 68; Resp 17; Pulse Ox 100% ; Pain 4/10; jh6 11:00 BP 117 / 77; Pulse 65; Resp 17; Pulse Ox 100% ; Pain 0/10; 6 08:34 Body Mass Index 24.82 (83.01 kg, 182.88 cm) ss MDM: 08:26 Patient medically screened. 09:09 Data reviewed: vital signs, nurses notes. [facility] 11:44 Counseling: I had a detailed discussion with the patient and/or guardian regarding: the [facility] historical points, exam findings, and any diagnostic results supporting the discharge/admit diagnosis, lab results, radiology results, the need for outpatient follow up. Response to treatment: the patient's symptoms have markedly improved after treatment. 05/21 08:30 Order name: CBC with Diff; Complete Time: 09:35 05/21 08:30 Order name: CMP; Complete Time: 09:43 05/21 08:30 Order name: Lipase; Complete Time: 09:43 05/21 08:30 Order name: CT Abd/Pelvis - IV Contrast Only; Complete Time: 10:04 05/21 11:45 Order name: Urine Dipstick-Ancillary; Complete Time: 11:46 EDMS 05/21 08:30 Order name: IV Saline Lock; Complete Time: 08:48 05/21 08:30 Order name: Labs collected and sent; Complete Time: 08:49 05/21 08:30 Order name: Urine Dipstick-Ancillary (obtain specimen); Complete Time: 11:45 05/21 08:31 Order name: EKG; Complete Time: 08:31 [facility] Administered Medications: 09:02 Drug: NS 0.9% 1000 ml Route: IV; Rate: 1 bolus; Site: right forearm; 6 09:02 Drug: morphine 2 mg Route: IVP; Infused Over: 4 mins; Site: right forearm; 6 09:02 Drug: Ketorolac 30 mg Route: IVP; Site: right forearm; 6 09:03 Drug: Zofran (Ondansetron) 4 mg Route: IVP; Site: right forearm; [facility] Disposition Summary: 05/21/22 11:45 Discharge Ordered Location: Home [facility] Condition: Stable 9 Diagnosis - Kidney Stone/ Calculus in urethra jl9 Followup: jl9 - With: Private Physician - When: 1 - 2 days - Reason: Recheck today's complaints, Continuance of care, Re-evaluation by your physician Discharge Instructions: - Discharge Summary Sheet jl9 - Kidney Stones, [id number] jl9 Forms: - Medication Reconciliation Form jl9 - Thank You Letter jl9 - Antibiotic Education jl9 - Prescription Opioid Use jl9 Prescriptions: - ketorolac 10 mg Oral tablet - take 1 tablet by ORAL route every 4 hours not to exceed 40mg in 24hrs for up to jl9 5 days total use; 20 tablet; Refills: 0, Product Selection Permitted - tamsulosin 0.4 mg Oral capsule - take 1 capsule by ORAL route once daily 1/2 hour following the same meal each jl9 day; 14 capsule; Refills: 0, Product Selection Permitted Signatures: Dispatcher [employer] Evelyn Chopra RN RN ss Alisa Harris RN RN [facility] King Ramirez jl9
[2022-05-21 12:22] VITALS: TEMP 97; O2SAT 100
[2022-05-21 12:26] VITALS: BP 117/77
== END 2022-05-21 11:59 | disposition home or self-care (01) ==
LOC: ER 08:24
DX: N20.0 Calculus of kidney (principal); N21.1 Calculus in urethra; F17.210 Nicotine dependence, cigarettes, uncomplicated; Z21 Asymptomatic human immunodeficiency virus [HIV] infection status; Z88.5 Allergy status to narcotic agent; Z87.442 Personal history of urinary calculi
CPT/HCPCS: 36415; 74177; 80053; 81003; 83690; 85025; 96374; 96375; 99284; J2270; J2405; J7030; Q9967

== ENCOUNTER 2023-07-31 15:30 | Emergency (ER) | payer SELFPAY ==
--- OUTSIDE RECORDS SUMMARY | 2023-07-31 15:49 | XMS REPORT | Continuity of Care Document ---
:1970 Author Organization [facility] t Address [address] [place] [address] Care Team Providers Name Role Phone MEGHANA JOHN Primary Care Physician Unavailable STANLEY CIFUENTES Attending Clinician Unavailable STANLEY CIFUENTES Attending Clinician Unavailable SUGEY DRAPER Attending Clinician Unavailable ALANNA JACKSON Attending Clinician Unavailable Kenneth Choudhary MA Attending Clinician Unavailable LISETH KOEHLER Attending Clinician Unavailable Liseth Sandhu Attending Clinician MEGHANA RUSSELL Attending Clinician Unavailable Fabiola Cartagena DO Attending Clinician Meghana Russell DO Attending Clinician Doctor Unassigned, [place] Attending Clinician Unavailable Bonnie Vera Attending Clinician Meghana John MD Attending Clinician MEGHANA JOHN Attending Clinician Unavailable [facility] Attending Clinician Unavailable Renee Lorenzo LVN Attending Clinician Unavailable Lina Phelps RN Attending Clinician Unavailable INDIGO VICTOR Attending Clinician Unavailable GAURAV GUTIERREZ Attending Clinician Unavailable Beatriz Su MA Attending Clinician Unavailable JOSSE YI Attending Clinician Unavailable Josse Yi DO Attending Clinician Lina Merritt RN Attending Clinician Unavailable Visit, [facility] Id Nurse Attending Clinician Unavailable Sanjuana Hutchinson Attending Clinician SANJUANA HUTCHINSON Attending Clinician Unavailable Barbara De Guzman MA Attending Clinician Unavailable HELEN HINKLE Attending Clinician Unavailable Stanley Cervantes Attending Clinician Helen Hinkle MD Attending Clinician Nancy Andujar RN Attending Clinician Unavailable Gregorio Hanna MD Attending Clinician JORGE GARCIA Attending Clinician Unavailable REYES BECKHAM Attending Clinician Unavailable Reyes Beckham MD Attending Clinician ANTHONY ADAM Attending Clinician Unavailable Nurse, Adc Pob Immunization Attending Clinician Unavailable Anthony Adam DO Attending Clinician Lorne Lockett Attending Clinician GREGORIO HANNA Attending Clinician Unavailable Molly Carcamo LVN Attending Clinician Unavailable ADELA FORTE Attending Clinician Unavailable KATHRINE GRACIA Attending Clinician Unavailable Nayla Torres MD Attending Clinician Devonte Hightower Attending Clinician Dm Chan RN Attending Clinician Unavailable Edilma Asher Attending Clinician Go Beverly Attending Clinician Codey De La Rosa MD Attending Clinician LISETH KOEHLER Admitting Clinician Unavailable MEGHANA RUSSELL Admitting Clinician Unavailable Meghana Russell DO Admitting Clinician HELEN HINKLE Admitting Clinician Unavailable Helen Hinkle MD Admitting Clinician Payers Payer Name Policy Type Policy Number Effective Date Expiration Date S ource Problems Condition Condition Condition Status Onset Resolution Last Treating Co mments Source Name Details Category Date Date Treatment Clinician Date Cellulitis Cellulitis Disease Active U nivers of right of right 6-28 ity of upper upper 00:00: [place] extremity extremity 00 [facility] ethan Branch 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[place] 00 [place] Branch Cellulitis Cellulitis Disease Active 2021-0 U nivers of left of left 4-23 ity of lower leg [place] 00:[place] Furunculos Furunculos Disease Active U nivers is is 6-03 ity of 00:00: [address] 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 00:00: [place] virus virus Medical infection) infection) Br anch HLD HLD Disease Active Univers (hyperlipi (hyperlipi 06-07 it y of demia) demia) 00:00: [address] Allergies, Adverse Reactions, Alerts Allergy Allergy Status Severity Reaction(s) Onset Inactive Treating Comm ents Source Name Type Date Date Clinician NO KNOWN Drug Active Univers ALLERGIE Class ity of S [facility] Social History Social Habit Start Date Stop Date Quantity Comments Source History SDOH University o f Alcohol Frequency [facility] edical Branch History SDOH University o f Alcohol Std Drinks [facility] History SDNE University o f Alcohol Binge [place] [facility] History of tobacco Cigarette Smoker University of use [facility] Gender identity Universit y of [facility] Sexual orientation Univer sity of [facility] Tobacco Comment 2023-03-09 2023-03-09 Less than half a Uni versity of 00:00:00 00:00:00 pack a day [facility] Exposure to 2022-11-15 2022-11-25 Not sure University of SARS-CoV-2 (event) 00:00:00 10:34:00 [facility] History of Social 2022-11-25 2022-11-25 Univers ity of function 00:00:00 00:00:00 [facility] Alcohol intake 2022-08-08 2022-08-08 Current drinker Unive rsity of 00:00:00 00:00:00 of alcohol [facility] (finding) [place] Tobacco use and 2022-03-29 2022-03-29 User of Universit y of exposure 00:00:00 00:00:00 smokeless [facility] tobacco [place] Cigarettes smoked 2022-03-29 2022-03-29 Univers ity of current (pack per 00:00:00 00:00:00 [facility] ) - Reported Branch Alcohol Comment 2018-06-08 2018-06-08 12 pack beer Univers ity of 00:00:00 00:00:00 monthly [facility] Sex [birth year] At [birth year] Universit y of 00:00:00 00:00:00 [facility] Smoking Status Start Date Stop Date Source Smokes tobacco daily 2022-03-29 00:00:00 Univers ity of [facility] Medications Ordered Filled Start Stop Current Ordering Indication Dosage Frequency Signature Comments Components Source Medication Medication Date Date Medication? Clinician (SIG) Name Name tamsulosin Yes .4mg 0.4 mg, Univ ers (FLOMAX) 04-14 Oral, ity of capsule 0.4 14:00: [place] 00 First dose Medical on [place] Branch 04/14/23 at 0900, Until Discontinu ed, Routine ketorolac 2022- No 30mg 30 mg, Unive rs (TORADOL) 04-14 Slow IV ity of injection 06:15: 05:48 Push, [place] 30 mg 00 :00 ONCE, 1 Medical dose, On Branch Bess 04/14/23 at 0115, Routine morpHINE (4 2022- No 4mg 4 mg, Slow Univers mg/mL) 04-14 IV Push, ity of injection 4 04:15: 04:43 ONCE, 1 [place] mg 00 :00 dose, On Medical 04/13/23 Branch at 2315, STAT iopamidol 2022- No [id number] 75mL 75 mL, Univers (ISOVUE 04-14 Intravenou ity o f 370-500 mL) 04:15: 03:21 s, ONCE, 1 [place] injection 00 :00 dose, On Medica l 75 mL 04/13/23 Branch at 2315, Routine NaCl 0.9% 2022- No 1000mL at 999 Uni vers (NS) bolus 04-14 mL/hr, ity of infusion 03:45: 03:55 1,000 mL, [place] as 1,000 mL 00 :00 IV Medical Infusion, Branch ONCE, 1 dose, On Tue04/13/23 at 2245, FLORI ondansetron 2022- No 4mg 4 mg, Slow Univers (ZOFRAN 04-14 IV Push, ity of (PF)) 03:00: 02:54 ONCE, 1 [place] injection 4 00 :00 dose, On Medi ethan mg Tue04/13/23 Branch at 2200, FLORI morpHINE (4 2022- No 4mg 4 mg, Slow Univers mg/mL) 04-14 IV Push, ity of injection 4 03:00: 02:54 ONCE, 1 [place] mg 00 :00 dose, On Medical Tue04/13/23 Branch at 2200, STAT ketorolac 0 Yes [id number] 10mg Take 1 Un perico 10 mg 8-03 tablet by ity of tablet 00:00: mouth 00 every 6 Medical (six) Branch hours as needed for Pain (scale 7-10). traMADoL 50 2022-0 Yes [id number] 50mg Take 1 Univ ers mg tablet 8-03 tablet by ity o f 00:00: mouth [place] 00 every 6 Medical (six) Branch hours as needed for Pain (scale 7-10). Indication s: acute pain ketorolac 2022-0 Yes [id number] 10mg Take 1 Un perico 10 mg 8-03 tablet by ity of tablet 00:00: mouth [place] 00 every 6 Medical (six) Branch hours as needed for Pain (scale 7-10). traMADoL 50 2022-0 Yes [id number] 50mg Take 1 Univ ers mg tablet 8-03 tablet by ity o f 00:00: mouth [place] 00 every 6 Medical (six) Branch hours as needed for Pain (scale 7-10). Indication s: acute pain sulfamethox 2022-0 2022- No [id number] 1{tbl} Take 1 Univers azole-trime 03-11-12 [id number] tablet by ity of thoprim 00:00: 04:59 mouth in [place] (BACTRIM 00 :00 the Medical DS) 800-160 morning Branc h mg per and 1 tablet tablet in the evening. Do all this for 11 days. traMADoL 50 2022- No [id number] 50mg Take 1 Uni vers mg tablet 03-1108 tablet by ity of 00:00: 04:59 mouth [place] 00 :00 every 6 Medical (six) Branch hours as needed for Pain (scale 7-10) for up to 7 days. Indication s: acute pain iopamidol 2022- No [id number] 80mL 80 mL, Univers (ISOVUE 03-10 [id number] Intravenou ity of 370-500 mL) 21:00: 21:00 s, ONCE, 1 [place] injection 00 :00 dose, On Medica l 80 mL [place] Branch 03/10/23 at 1600, Routine vancomycin 2022- No 15mg/kg 1,250 mg Univers 1,250 mg in 03-10 (rounded ity of NaCl 0.9% 03:00: 02:59 from [place] (NS) 250 mL 00 :00 1,231.5 mg Me dical VIAL-MATE = 15 mg/kg Bran ch IV ?82.1 kg), piggyback IV Piggyback, Q12H ABX, 10 doses, First dose on Tue03/09/23 at 2200, Last dose on Tue03/14/23 at 1000, Administer over 90 Minutes, 250 mL
Reas on for Anti-Infec tive: Empiric Therapy for Suspected Infection< br>Empiric Therapy Site: Skin / Soft tissue
Duration of therapy: 5 days atorvastati Yes 40mg 40 mg, Univ ers n (LIPITOR) 03-10 Oral, QHS, it y of tablet 40 02:00: First dose [place] mg 00 on [facility] Medical 03/09/23 at Branch 2100, Until Discontinu ed, Routine nicotine Yes 1{patch 1 Patch, Un perico (NICODERM) 03-09 } Topical, ity o f 14 mg/24 hr 23:45: Administer [place] patch 1 00 over 24 Medical Patch Hours, Branch Q24H, First dose on Tue03/09/23 at 1845, Until Discontinu ed, Routine bictegrav-e Yes 1{tbl} 1 tablet, Univers mtricit-ten 03-09 Oral, ity of ofov ala 23:00: DAILY, [place] (BIKTARVY) 00 First dose Med ical 50-200-25 on Tue mg tablet 1 03/09/23 at tablet 1800, Until Discontinu ed, Routine ampicillin- 0 Yes 3g 3 g, IV Uni vers sulbactam 03-09 Piggyback, ity of (UNASYN) 3 23:00: Q6H ABX, [place] g in NaCl 00 First dose Medi ethan 0.9% (NS) (after Branch 100 mL last MINI-BAG reorder) on Tue03/09/23 at 1800, Until Discontinu ed, Administer over 30 Minutes, 100 mL
Reas on for Anti-Infec tive: Documented Infection< br>Docu mented Infection Site: Skin / Soft Tissue
Duration of Therapy: 7 days enoxaparin Yes 40mg 40 mg, Unive rs (LOVENOX) 03-09 Subcutaneo ity of injection 22:00: [place], DAILY, [place] 40 mg 00 First dose Medical on Tue03/09/23 at 1700, Until Discontinu ed, Routine HYDROcodone 2022- No 1{tbl} 1 tablet, [facility] -acetaminop 03-09 Oral, ity of hen (NORCO 15:50: 15:49 Q6HPRN, [place] as 5) 5-325 mg 46 :46 Starting Medi ethan tablet 1 on Tue tablet 03/09/23 at 1050, Until Tue03/11/23 at 1049, Routine, Pain (scale 4-6) acetaminoph Yes 650mg 650 mg, Un perico en 03-09 Oral, ity of (TYLENOL) 15:50: Q6HPRN, [place] tablet 650 44 Starting Medic al mg on Tue03/09/23 at 1050, Until Discontinu ed, Routine, Pain (scale 1-3) vancomycin 0 202- No 15mg/kg 1,250 mg Univers 1,250 mg in 03-09 (rounded ity of NaCl 0.9% 15:00: 17:19 from [place] (NS) 250 mL 00 :00 1,231.5 mg Me dical VIAL-MATE = 15 mg/kg Bran ch IV ?82.1 kg), piggyback IV Piggyback, ONCE, 1 dose, On Tue03/09/23 at 1000, Administer over 90 Minutes, 250 mL
Reas on for Anti-Infec tive: Documented Infection& lt;br>Docu mented Infection Site: Skin / Soft Tissue
Duration of Therapy: 7 days ampicillin- 0 2022- No 3g 3 g, IV Un perico sulbactam 03-09 Piggyback, ity of (UNASYN) 3 14:15: 15:10 ONCE, 1 [place] g in NaCl 00 :00 dose, On Medica l 0.9% (NS) Tue Branch 100 mL 03/09/23 at MINI-BAG 0915, Administer over 30 Minutes, 100 mL
Reas on for Anti-Infec tive: Documented Infection< br>Documen lars Infection Site: Skin / Soft Tissue
Duration of Therapy: 7 days povidone-io Yes [id number] 3{bottl Apply 3 Univers dine 6-08 e} Bottles to ity of (BETADINE 00:00: [place] SURGICAL 00 the Medical SCRUB) 7.5 morning. Branc h % Soln bictegrav-e Yes [id number] 1{tbl} Take 1 Univers mtricit-ten 6-08 tablet by ity of ofov ala 00:00: mouth in [place] ([facility]) morning. Branch mg tablet bictegrav-e Yes [id number] 1{tbl} Take 1 Univers mtricit-ten 6-08 tablet by ity of ofov ala 00:00: mouth in [place] ([facility]) morning. Branch mg tablet bictegrav-e Yes [id number] 1{tbl} Take 1 Univers mtricit-ten 6-08 tablet by ity of ofov ala 00:00: mouth in [place] ([facility]) morning. Branch mg tablet bictegrav-e Yes [id number] 1{tbl} Take 1 Univers mtricit-ten 6-08 tablet by ity of ofov ala 00:00: mouth in [place] ([facility]) [facility] morning. Branch mg tablet bictegrav-e 2023-0 Yes [id number] 1{tbl} Take 1 Univers mtricit-ten 6-08 tablet by ity of ofov ala 00:00: mouth in [place] ([facility]) 00 morning. Branch mg tablet bictegrav-e 2023-0 Yes [id number] 1{tbl} Take 1 Univers mtricit-ten 6-08 tablet by ity of ofov ala 00:00: mouth in [place] ([facility]) 00 morning. Branch mg tablet bictegrav-e 3-0 Yes [id number] 1{tbl} Take 1 Univers mtricit-ten 6-08 tablet by ity of ofov ala 00:00: mouth in [place] ([facility]) morning. Branch mg tablet bictegrav-e 3-0 Yes [id number] 1{tbl} Take 1 Univers mtricit-ten 6-08 tablet by ity of ofov ala 00:00: mouth in [place] ([facility]) morning. Branch mg tablet povidone-io 2022- No [id number] 3{bottl Apply 3 Univers dine 6-04 17-30 e} Bottles to ity of (BETADINE 00:00: 00:00 area(s[place] in [place] SURGICAL 00 :00 the Medical SCRUB) 7.5 morning. Branc h % Soln povidone-io 2022-0 2022- No [id number] 3{bottl Apply 3 Univers dine 6-08 06-30 e} Bottles to ity of (BETADINE 00:00: 00:00 area(s[place] SURGICAL 00 :00 the Medical SCRUB) 7.5 morning. Branc h % Soln povidone-io 2022-0 2022- No [id number] 3{bottl Apply 3 Univers dine 6-08 06-30 e} Bottles to ity of (BETADINE 00:00: 00:00 area(s[place] in [place] SURGICAL 00 :00 the Medical SCRUB) 7.5 morning. Branc h % Soln povidone-io 2022- No [id number] 3{bottl Apply 3 Univers dine 02-17 e} Bottles to ity of (BETADINE 00:00: 00:00 area(s[place] in [place] SURGICAL 00 :00 the Medical SCRUB) 7.5 morning. Branc h % Soln bictegrav-e 2021-09 Yes [id number] 1{tbl} Take 1 Univers mtricit-ten 2-15 tablet by ity of ofov ala 00:00: mouth in [place] ([facility]) 00 the Medical morning. Branch mg tablet doxycycline 2021-09 Yes [id number] 100mg Take 1 Univers monohydrate 2-15 capsule by it y of 100 mg 00:00: mouth in [place] capsule 00 the Medical morning Branch and 1 capsule in the evening. bictegrav-e 2021-09 Yes [id number] 1{tbl} Take 1 Univers mtricit-ten 2-15 tablet by ity of ofov ala 00:00: mouth in [place] ([facility]) the morning. Branch mg tablet doxycycline 2021-09 Yes [id number] 100mg Take 1 Univers monohydrate 2-15 capsule by it y of 100 mg 00:00: mouth in [place] capsule the morning Branch and 1 capsule in the evening. bictegrav-e 2021-09 Yes [id number] 1{tbl} Take 1 Univers mtricit-ten 2-15 tablet by ity of ofov ala 00:00: mouth in [place] [facility] the morning. Branch mg tablet doxycycline 2021-09 Yes [id number] 100mg Take 1 Univers monohydrate 2-15 capsule by it y of 100 mg 00:00: mouth in [place] capsule 00 the morning Branch and 1 capsule in the evening. bictegrav-e 2021-09 Yes [id number] 1{tbl} Take 1 Univers mtricit-ten 2-15 tablet by ity of ofov ala 00:00: mouth in [place] (BIKTARVY) 00 the Medical morning. Branch mg tablet doxycycline 2021-09 Yes [id number] 100mg Take 1 Univers monohydrate 2-15 capsule by it y of 100 mg 00:00: mouth in [place] capsule 00 the Medical morning Branch and 1 capsule in the evening. bictegrav-e 2021-09 Yes [id number] 1{tbl} Take 1 Univers mtricit-ten 2-15 tablet by ity of ofov ala 00:00: mouth in [place] (KTARVY) 00 the morning. Branch mg tablet doxycycline 2021-09 Yes [id number] 100mg Take 1 Univers monohydrate 2-15 capsule by it y of 100 mg 00:00: mouth in [place] capsule 00 the Medical morning Branch and 1 capsule in the evening. bictegrav-e 2021-09 Yes [id number] 1{tbl} Take 1 Univers mtricit-ten 2-15 tablet by ity of ofov ala 00:00: mouth in [place] (KTARV) 00 the morning. Branch mg tablet doxycycline 2021-09 Yes [id number] 100mg Take 1 Univers monohydrate 2-15 capsule by it y of 100 mg 00:00: mouth in [place] capsule 00 the Branch and 1 capsule in the evening. bictegrav-e 2021-09 Yes [id number] 1{tbl} Take 1 Univers mtricit-ten 2-15 tablet by ity of ofov ala 00:00: mouth in [place] (KTARVY) 00 the morning. Branch mg tablet doxycycline 2021-09 Yes [id number] 100mg Take 1 Univers monohydrate 2-15 capsule by it y of 100 mg 00:00: mouth in [place] capsule 00 the morning Branch and 1 capsule in the evening. bictegrav-e 2021-09 Yes [id number] 1{tbl} Take 1 Univers mtricit-ten 2-15 tablet by ity of ofov ala 00:00: mouth in [place] (BIKTARVY) 00 the morning. Branch mg tablet doxycycline 2021-09 Yes [id number] 100mg Take 1 Univers monohydrate 2-15 capsule by it y of 100 mg 00:00: mouth in [place] capsule 00 the Medical morning Branch and 1 capsule in the evening. bictegrav-e 2021-09 Yes [id number] 1{tbl} Take 1 Univers mtricit-ten 2-15 tablet by ity of ofov ala 00:00: mouth in [place] (BIKTARVY) 00 the Medical morning. Branch mg tablet doxycycline 2021-09 Yes [id number] 100mg Take 1 Univers monohydrate 2-15 capsule by it y of 100 mg 00:00: mouth in [place] capsule 00 the Medical morning Branch and 1 capsule in the evening. bictegrav-e 2021-09 Yes [id number] 1{tbl} Take 1 Univers mtricit-ten 2-15 tablet by ity of ofov ala 00:00: mouth in [place] (BIKTARVY) 00 the Medical morning. Branch mg tablet doxycycline 2021-09 Yes [id number] 100mg Take 1 Univers monohydrate 2-15 capsule by it y of 100 mg 00:00: mouth in [place] capsule 00 the Medical morning Branch and 1 capsule in the evening. bictegrav-e 2021-09 Yes [id number] 1{tbl} Take 1 Univers mtricit-ten 2-15 tablet by ity of ofov ala 00:00: mouth in [place] (BIKTARVY) 00 the Medical morning. Branch mg tablet doxycycline 2021-09 Yes [id number] 100mg Take 1 Univers monohydrate 2-15 capsule by it y of 100 mg 00:00: mouth in [place] capsule 00 the Medical morning Branch and 1 capsule in the evening. bictegrav-e 2021-09 Yes [id number] 1{tbl} Take 1 Univers mtricit-ten 2-15 tablet by ity of ofov ala 00:00: mouth in [place] (BIKTARVY) 00 the Medical morning. Branch mg tablet doxycycline 2021-09 Yes [id number] 100mg Take 1 Univers monohydrate 2-15 capsule by it y of 100 mg 00:00: mouth in [place] capsule 00 the Medical morning Branch and 1 capsule in the evening. bictegrav-e 2021-09 Yes [id number] 1{tbl} Take 1 Univers mtricit-ten 2-15 tablet by ity of ofov ala 00:00: mouth in [place] (BIKTARVY) 00 the Medical morning. Branch mg tablet doxycycline 2021-09 Yes [id number] 100mg Take 1 Univers monohydrate 2-15 capsule by it y of 100 mg 00:00: mouth in [place] capsule 00 the morning Branch and 1 capsule in the evening. bictegrav-e 2021-09 Yes [id number] 1{tbl} Take 1 Univers mtricit-ten 2-15 tablet by ity of ofov ala 00:00: mouth in [place] (BIKTARVY) 00 the Medical morning. Branch mg tablet doxycycline 2021-09 Yes [id number] 100mg Take 1 Univers monohydrate 2-15 capsule by it y of 100 mg 00:00: mouth in [place] capsule 00 the Medical morning Branch and 1 capsule in the evening. bictegrav-e 2021-09 Yes [id number] 1{tbl} Take 1 Univers mtricit-ten 2-15 tablet by ity of ofov ala 00:00: mouth in [place] (KTARVY) 00 the Medical morning. Branch mg tablet doxycycline 2021-09 Yes [id number] 100mg Take 1 Univers monohydrate 2-15 capsule by it y of 100 mg 00:00: mouth in [place] capsule 00 the Medical morning Branch and 1 capsule in the evening. bictegrav-e 2021-09 Yes [id number] 1{tbl} Take 1 Univers mtricit-ten 2-15 tablet by ity of ofov ala 00:00: mouth in [place] (KTARVY) 00 the morning. Branch mg tablet doxycycline 2021-09 Yes [id number] 100mg Take 1 Univers monohydrate 2-15 capsule by it y of 100 mg 00:00: mouth in [place] capsule 00 the Medical morning Branch and 1 capsule in the evening. bictegrav-e 2021-09 Yes [id number] 1{tbl} Take 1 Univers mtricit-ten 2-15 tablet by ity of ofov ala 00:00: mouth in [place] (BIKTARVY) 00 the morning. Branch mg tablet doxycycline 2021-09 Yes [id number] 100mg Take 1 Univers monohydrate 2-15 capsule by it y of 100 mg 00:00: mouth in [place] capsule 00 the Medical morning Branch and 1 capsule in the evening. bictegrav-e 2021-09 Yes [id number] 1{tbl} Take 1 Univers mtricit-ten 2-15 tablet by ity of ofov ala 00:00: mouth in [place] (BIKTARVY) 00 the Medical [id number] morning. Branch mg tablet doxycycline 2021-09 Yes [id number] 100mg Take 1 Univers monohydrate 2-15 capsule by it y of 100 mg 00:00: mouth in [place] capsule 00 the Medical morning Branch and 1 capsule in the evening. bictegrav-e 2021-09 Yes [id number] 1{tbl} Take 1 Univers mtricit-ten 2-15 tablet by ity of ofov ala 00:00: mouth in [place] (BIKTARVY) 00 the Medical [id number] morning. Branch mg tablet doxycycline 2021-09 Yes [id number] 100mg Take 1 Univers monohydrate 2-15 capsule by it y of 100 mg 00:00: mouth in [place] capsule 00 the Medical morning Branch and 1 capsule in the evening. doxycycline 2021-09 Yes [id number] 100mg Take 1 Univers monohydrate 2-15 capsule by it y of 100 mg 00:00: mouth in [place] capsule 00 the Medical morning Branch and 1 capsule in the evening. doxycycline 2021-09- No [id number] 100mg Take 1 Univers monohydrate 2-15 06-28 capsule by i ty of 100 mg 00:00: 00:00 mouth in [place] capsule 00 :00 the Medical morning Branch and 1 capsule in the evening. doxycycline 2021-09- No [id number] 100mg Take 1 Univers monohydrate 2-15 06-28 capsule by i ty of 100 mg 00:00: 00:00 mouth in [place] capsule 00 :00 the Medical morning Branch and 1 capsule in the evening. doxycycline 2021-09- No [id number] 100mg Take 1 Univers monohydrate 2-15 06-28 capsule by i ty of 100 mg 00:00: 00:00 mouth in [place] capsule 00 :00 the Medical morning Branch and 1 capsule in the evening. doxycycline 2021-09- No [id number] 100mg Take 1 Univers monohydrate 2-15 06-28 capsule by i ty of 100 mg 00:00: 00:00 mouth in [place] capsule 00 :00 the Medical morning Branch and 1 capsule in the evening. bictegrav-e 2021-09- No [id number] 1{tbl} Take 1 Univers mtricit-ten 2-15 06-08 tablet by it y of ofov ala 00:00: 00:00 [place] ([facility]) 00 :00 the Medical morning. Branch mg tablet bictegrav-e 2021-09- No [id number] 1{tbl} Take 1 Univers mtricit-ten 2-15 06-08 tablet by it y of ofov ala 00:00: 00:00 [place] ([facility]) 00 :00 the Medical morning. Branch mg tablet bictegrav-e 2021-09- No [id number] 1{tbl} Take 1 Univers mtricit-ten 2-15 06-08 tablet by it y of ofov ala 00:00: 00:[place] ([facility]) 00 :00 the Medical morning. Branch mg tablet doxycycline 2021-09- No [id number] 100mg Take 1 Univers monohydrate 2-15 12-15 capsule by i ty of 100 mg 00:00: 00:00 mouth in [place] capsule 00 :00 the Medical morning Branch and 1 capsule in the evening. doxycycline 2021-09- No [id number] 100mg Take 1 Univers monohydrate 2-15 12-15 capsule by i ty of 100 mg 00:00: 00:00 mouth in [place] capsule 00 :00 the Medical morning Branch and 1 capsule in the evening. doxycycline 2021-09- No [id number] 100mg Take 1 Univers monohydrate 2-15 12-15 capsule by i ty of 100 mg 00:00: 00:00 mouth in [place] capsule 00 :00 the Medical morning Branch and 1 capsule in the evening. amoxicillin 2021-09 Yes [id number] 1{tbl} Take 1 Univers -clavulanat 2-05 tablet by ity of e 875-125 00:00: mouth [place] mg per 00 every 12 Medical tablet (twelve) Branch hours. amoxicillin 2021-09 Yes [id number] 1{tbl} Take 1 Univers -clavulanat 2-05 tablet by ity of e 875-125 00:00: mouth [place] mg per 00 every 12 Medical tablet (twelve) Branch hours. amoxicillin 2021- Yes [id number] 1{tbl} Take 1 Univers -clavulanat 2-05 tablet by ity of e 875-125 00:00: mouth [place] mg per 00 every 12 Medical tablet (twelve) Branch hours. amoxicillin 2021- Yes [id number] 1{tbl} Take 1 Univers -clavulanat 2-05 tablet by ity of e 875-125 00:00: mouth [place] mg per 00 every 12 Medical tablet (twelve) Branch hours. amoxicillin 2021- Yes [id number] 1{tbl} Take 1 [facility] -clavulanat 2-05 tablet by ity of e 875-125 00:00: mouth [place] mg per 00 every 12 Medical tablet (twelve) Branch hours. amoxicillin 2021- Yes [id number] 1{tbl} Take 1 [facility] -clavulanat 2-05 tablet by ity of e 875-125 00:00: mouth [place] mg per 00 every 12 Medical tablet (twelve) Branch hours. amoxicillin 2021-09 Yes [id number] 1{tbl} Take 1 [facility] -clavulanat 2-05 tablet by ity of e 875-125 00:00: mouth [place] mg per 00 every 12 Medical tablet (twelve) Branch hours. amoxicillin 2021- Yes [id number] 1{tbl} Take 1 [facility] -clavulanat 2-05 tablet by ity of e 875-125 00:00: mouth [place] mg per 00 every 12 Medical tablet (twelve) Branch hours. amoxicillin 2021- Yes [id number] 1{tbl} Take 1 [facility] -clavulanat 2-05 tablet by ity of e 875-125 00:00: mouth [place] mg per 00 every 12 Medical tablet (twelve) Branch hours. amoxicillin 2021- Yes [id number] 1{tbl} Take 1 [facility] -clavulanat 2-05 tablet by ity of e 875-125 00:00: mouth [place] mg per 00 every 12 Medical tablet (twelve) Branch hours. amoxicillin 2021- Yes [id number] 1{tbl} Take 1 [facility] -clavulanat 2-05 tablet by ity of e 875-125 00:00: mouth [place] mg per 00 every 12 Medical tablet (twelve) Branch hours. amoxicillin 2021- Yes [id number] 1{tbl} Take 1 [facility] -clavulanat 2-05 tablet by ity of e 875-125 00:00: mouth [place] mg per 00 every 12 Medical tablet (twelve) Branch hours. amoxicillin 2021- Yes [id number] 1{tbl} Take 1 [facility] -clavulanat 2-05 tablet by ity of e 875-125 00:00: mouth [place] mg per 00 every 12 Medical tablet (twelve) Branch hours. amoxicillin 2021- Yes [id number] 1{tbl} Take 1 [facility] -clavulanat 2-05 tablet by ity of e 875-125 00:00: mouth [place] mg per 00 every 12 Medical tablet (twelve) Branch hours. amoxicillin 2021- Yes [id number] 1{tbl} Take 1 [facility] -clavulanat 2-05 tablet by ity of e 875-125 00:00: mouth [place] mg per 00 every 12 Medical tablet (twelve) Branch hours. amoxicillin 2021- Yes [id number] 1{tbl} Take 1 [facility] -clavulanat 2-05 tablet by ity of e 875-125 00:00: mouth [place] mg per 00 every 12 Medical tablet (twelve) Branch hours. amoxicillin 2021- Yes [id number] 1{tbl} Take 1 [facility] -clavulanat 2-05 tablet by ity of e 875-125 00:00: mouth [place] mg per 00 every 12 Medical tablet (twelve) Branch hours. amoxicillin 2021- Yes [id number] 1{tbl} Take 1 [facility] -clavulanat 2-05 tablet by ity of e 875-125 00:00: mouth [place] mg per 00 every 12 Medical tablet (twelve) Branch hours. amoxicillin 2021- Yes [id number] 1{tbl} Take 1 [facility] -clavulanat 2-05 tablet by ity of e 875-125 00:00: mouth [place] mg per 00 every 12 Medical tablet (twelve) Branch hours. amoxicillin 2021- Yes [id number] 1{tbl} Take 1 [facility] -clavulanat 2-05 tablet by ity of e 875-125 00:00: mouth [place] mg per 00 every 12 Medical tablet (twelve) Branch hours. amoxicillin 2021-09 Yes [id number] 1{tbl} Take 1 [facility] -clavulanat 2-05 tablet by ity of e 875-125 00:00: mouth [place] mg per 00 every 12 Medical tablet (twelve) Branch hours. amoxicillin 2021-09 Yes [id number] 1{tbl} Take 1 [facility] -clavulanat 2-05 tablet by ity of e 875-125 00:00: mouth [place] mg per 00 every 12 Medical tablet (twelve) Branch hours. amoxicillin 2021-09 Yes [id number] 1{tbl} Take 1 [facility] -clavulanat 2-05 tablet by ity of e 875-125 00:00: mouth [place] mg per 00 every 12 Medical tablet (twelve) Branch hours. amoxicillin 2021-09 Yes [id number] 1{tbl} Take 1 [facility] -clavulanat 2-05 tablet by ity of e 875-125 00:00: mouth [place] mg per 00 every 12 Medical tablet (twelve) Branch hours. amoxicillin 2021-09 Yes [id number] 1{tbl} Take 1 [facility] -clavulanat 2-05 tablet by ity of e 875-125 00:00: mouth [place] mg per 00 every 12 Medical tablet (twelve) Branch hours. amoxicillin 2021-09 Yes [id number] 1{tbl} Take 1 [facility] -clavulanat 2-05 tablet by ity of e 875-125 00:00: mouth [place] mg per 00 every 12 Medical tablet (twelve) Branch hours. amoxicillin 2021-09 Yes [id number] 1{tbl} Take 1 [facility] -clavulanat 2-05 tablet by ity of e 875-125 00:00: mouth [place] mg per 00 every 12 Medical tablet (twelve) Branch hours. amoxicillin 2021- Yes [id number] 1{tbl} Take 1 [facility] -clavulanat 2-05 tablet by ity of e 875-125 00:00: mouth [place] mg per 00 every 12 Medical tablet (twelve) Branch hours. amoxicillin 2021- Yes [id number] 1{tbl} Take 1 [facility] -clavulanat 2-05 tablet by ity of e 875-125 00:00: mouth [place] mg per 00 every 12 Medical tablet (twelve) Branch hours. amoxicillin 2021-09 Yes [id number] 1{tbl} Take 1 [facility] -clavulanat 2-05 tablet by ity of e 875-125 00:00: mouth [place] mg per 00 every 12 Medical tablet (twelve) Branch hours. amoxicillin 2021-09 Yes [id number] 1{tbl} Take 1 [facility] -clavulanat 2-05 tablet by ity of e 875-125 00:00: mouth [place] mg per 00 every 12 Medical tablet (twelve) Branch hours. amoxicillin 2021-09 Yes [id number] 1{tbl} Take 1 [facility] -clavulanat 2-05 tablet by ity of e 875-125 00:00: mouth [place] mg per 00 every 12 Medical tablet (twelve) Branch hours. amoxicillin 2021-09- No [id number] 1{tbl} Take 1 [facility] -clavulanat 2-05 06-28 tablet by it y of e 875-125 00:00: 00:00 mouth [place] mg per 00 :00 every 12 Medical tablet (twelve) Branch hours. amoxicillin 2021-09- No [id number] 1{tbl} Take 1 [facility] -clavulanat 2-05 06-28 tablet by it y of e 875-125 00:00: 00:00 mouth [place] mg per 00 :00 every 12 Medical tablet (twelve) Branch hours. amoxicillin 2021-09- No [id number] 1{tbl} Take 1 [facility] -clavulanat 2-05 06-28 tablet by it y of e 875-125 00:00: 00:00 mouth [place] mg per 00 :00 every 12 Medical tablet (twelve) Branch hours. amoxicillin 2021-09- No [id number] 1{tbl} Take 1 [facility] -clavulanat 2-05 06-28 tablet by it y of e 875-125 00:00: 00:00 mouth [place] mg per 00 :00 every 12 Medical tablet (twelve) Branch hours. vancomycin 2021-09 Yes [id number] 1000mg 1,000 mg, [facility] (VANCOCIN) 10-09 [id number] IV ity of 1,000 mg in 01:30: Piggyback, [place] NaCl 0.9% 00 Q12H ABX, Medic al (NS) 250 mL First dose Br anch VIAL-MATE on Sun IV 08/08/22 piggyback at 1930, Until Discontinu ed, Administer over 60 Minutes, 250 mL
Reas on for Anti-Infec tive: Empiric Therapy for Suspected Infection& lt;br>Empi giovanna Therapy Site: Skin / Soft tissue
Duration of therapy: 72 hours piperacilli 2021-09- No [id number] 3.375g 3.375 g, [facility] n-tazobacta 10-09 [id number] IV ity o f m (ZOSYN) 01:30: 01:29 Piggyback, [place] 3.375 g in 00 :00 Q8H ABX, Medic al NaCl 0.9% 15 doses, Branc h (NS) 50 mL First dose MINI-BAG on 08/08/22 at 1930, Last dose on Tue08/13/22 at 1130, Administer over 4 Hours, 50 mL
Reas on for Anti-Infec tive: Empiric Therapy for Suspected Infection< br>Empiric Therapy Site: Skin / Soft tissue
Duration of therapy: 72 hours piperacilli 2021-09- No [id number] 3.375g 3.375 g, [facility] n-tazobacta 10-09 [id number] IV ity o f m (ZOSYN) 01:15: 01:59 Piggyback, [place] 3.375 g in 00 :00 ONCE, 1 Medica l NaCl 0.9% dose, On Branch (NS) 50 mL Sun MINI-BAG 08/08/22 at 1915, Administer over 30 Minutes, 50 mL
Reas on for Anti-Infec tive: Empiric Therapy for Suspected Infection< br>Empiric Therapy Site: Skin / Soft tissue
Duration of therapy: 72 hours NaCl 0.9% 2021-09- No [id number] 30mL/kg at 999 [facility] (NS) bolus 10-09 [id number] mL/hr, ity of infusion 01:15: 03:28 2,421 mL [place] 2,421 mL 00 :00 (30 mL/kg Medica l ?80.7 kg), Branch IV Piggyback, ONCE, 1 dose, On 08/08/22 at 1915, STAT amoxicillin 2021-09 Yes [id number] 1{tbl} Take 1 [facility] -clavulanat 1-27 tablet by ity of e 875-125 00:00: mouth [place] mg per 00 every 12 Medical tablet (twelve) Branch hours. chlorhexidi 2021-09 Yes [id number] Apply to [facility] ne 4 % 1-27 area(s) ity of external 00:00: once daily [place] liquid 00 as needed Medical for Wound Branch care. amoxicillin 2021-09 Yes [id number] 1{tbl} Take 1 [facility] -clavulanat 1-27 tablet by ity of e 875-125 00:00: mouth [place] mg per 00 every 12 Medical tablet (twelve) Branch hours. chlorhexidi 2021-09 Yes [id number] Apply to [facility] ne 4 % 1-27 area(s) ity of external 00:00: once daily [place] liquid 00 as needed Medical for Wound Branch care. amoxicillin 2021-09 Yes [id number] 1{tbl} Take 1 [facility] -clavulanat 1-27 tablet by ity of e 875-125 00:00: mouth [place] mg per 00 every 12 Medical tablet (twelve) Branch hours. chlorhexidi 2021-09 Yes [id number] Apply to [facility] ne 4 % 1-27 area(s) ity of external 00:00: once daily [place] liquid 00 as needed Medical for Wound Branch care. amoxicillin 2021-09 Yes [id number] 1{tbl} Take 1 [facility] -clavulanat 1-27 tablet by ity of e 875-125 00:00: mouth [place] mg per 00 every 12 Medical tablet (twelve) Branch hours. chlorhexidi 2021-09 Yes [id number] Apply to [facility] ne 4 % 1-27 area(s) ity of external 00:00: once daily [place] liquid 00 as needed Medical for Wound Branch care. amoxicillin 2021-09 Yes [id number] 1{tbl} Take 1 [facility] -clavulanat 1-27 tablet by ity of e 875-125 00:00: mouth [place] mg per 00 every 12 Medical tablet (twelve) Branch hours. chlorhexidi 2021-09 Yes [id number] Apply to [facility] ne 4 % 1-27 area(s) ity of external 00:00: once daily [place] liquid 00 as needed Medical for Wound Branch care. amoxicillin 2021-09 Yes [id number] 1{tbl} Take 1 [facility] -clavulanat 1-27 tablet by ity of e 875-125 00:00: mouth [place] mg per 00 every 12 Medical tablet (twelve) Branch hours. chlorhexidi 2021-09 Yes [id number] Apply to [facility] ne 4 % 1-27 area(s) ity of external 00:00: once daily [place] liquid 00 as needed Medical for Wound Branch care. chlorhexidi 2021-09 Yes [id number] Apply to [facility] ne 4 % 1-27 area(s) ity of external 00:00: once daily [place] liquid 00 as needed Medical for Wound Branch care. chlorhexidi 2021-09 Yes [id number] Apply to [facility] ne 4 % 1-27 area(s) ity of external 00:00: once daily [place] liquid 00 as needed Medical for Wound Branch care. chlorhexidi 2021-09 Yes [id number] Apply to [facility] ne 4 % 1-27 area(s) ity of external 00:00: once daily [place] liquid 00 as needed Medical for Wound Branch care. chlorhexidi 2021-09 Yes [id number] Apply to [facility] ne 4 % 1-27 area(s) ity of external 00:00: once daily [place] liquid 00 as needed Medical for Wound Branch care. chlorhexidi 2021-09 Yes [id number] Apply to [facility] ne 4 % 1-27 area(s) ity of external 00:00: once daily [place] liquid 00 as needed Medical for Wound Branch care. chlorhexidi 2021-09 Yes [id number] Apply to [facility] ne 4 % 1-27 area(s) ity of external 00:00: once daily [place] liquid 00 as needed Medical for Wound Branch care. chlorhexidi 2021-09 Yes [id number] Apply to [facility] ne 4 % 1-27 area(s) ity of external 00:00: once daily [place] liquid 00 as needed Medical for Wound Branch care. chlorhexidi 2021-09 Yes [id number] Apply to [facility] ne 4 % 1-27 area(s) ity of external 00:00: once daily [place] liquid 00 as needed Medical for Wound Branch care. chlorhexidi 2021-09 Yes [id number] Apply to [facility] ne 4 % 1-27 area(s) ity of external 00:00: once daily [place] liquid 00 as needed Medical for Wound Branch care. chlorhexidi 2021-09 Yes [id number] Apply to [facility] ne 4 % 1-27 area(s) ity of external 00:00: once daily [place] liquid 00 as needed Medical for Wound Branch care. chlorhexidi 2021-09 Yes [id number] Apply to [facility] ne 4 % 1-27 area(s) ity of external 00:00: once daily [place] liquid 00 as needed Medical for Wound Branch care. chlorhexidi 2021-09 Yes [id number] Apply to [facility] ne 4 % 1-27 area(s) ity of external 00:00: once daily [place] liquid 00 as needed Medical for Wound Branch care. chlorhexidi 2021-09 Yes [id number] Apply to [facility] ne 4 % 1-27 area(s) ity of external 00:00: once daily [place] liquid 00 as needed Medical for Wound Branch care. chlorhexidi 2021-09 Yes [id number] Apply to [facility] ne 4 % 1-27 area(s) ity of external 00:00: once daily [place] liquid 00 as needed Medical for Wound Branch care. chlorhexidi 2021-09 Yes [id number] Apply to [facility] ne 4 % 1-27 area(s) ity of external 00:00: once daily [place] liquid 00 as needed Medical for Wound Branch care. chlorhexidi 2021-09 Yes [id number] Apply to [facility] ne 4 % 1-27 area(s) ity of external 00:00: once daily [place] liquid 00 as needed Medical for Wound Branch care. chlorhexidi 2021-09 Yes [id number] Apply to [facility] ne 4 % 1-27 area(s) ity of external 00:00: once daily [place] liquid 00 as needed Medical for Wound Branch care. chlorhexidi 2021-09 Yes [id number] Apply to [facility] ne 4 % 1-27 area(s) ity of external 00:00: once daily [place] liquid 00 as needed Medical for Wound Branch care. chlorhexidi 2021-09 Yes [id number] Apply to [facility] ne 4 % 1-27 area(s) ity of external 00:00: once daily [place] liquid 00 as needed Medical for Wound Branch care. chlorhexidi 2021-09 Yes [id number] Apply to [facility] ne 4 % 1-27 area(s) ity of external 00:00: once daily [place] liquid 00 as needed Medical for Wound Branch care. chlorhexidi 2021-09 Yes [id number] Apply to [facility] ne 4 % 1-27 area(s) ity of external 00:00: once daily [place] liquid 00 as needed Medical for Wound Branch care. chlorhexidi 2021-09 Yes [id number] Apply to [facility] ne 4 % 1-27 area(s) ity of external 00:00: once daily [place] liquid 00 as needed Medical for Wound Branch care. chlorhexidi 2021-09 Yes [id number] Apply to [facility] ne 4 % 1-27 area(s) ity of external 00:00: once daily [place] liquid 00 as needed Medical for Wound Branch care. chlorhexidi 2021-09 Yes [id number] Apply to [facility] ne 4 % 1-27 area(s) ity of external 00:00: once daily [place] liquid 00 as needed Medical for Wound Branch care. chlorhexidi 2021-09 Yes [id number] Apply to [facility] ne 4 % 1-27 area(s) ity of external 00:00: once daily [place] liquid 00 as needed Medical for Wound Branch care. chlorhexidi 2021-09 Yes [id number] Apply to [facility] ne 4 % 1-27 area(s) ity of external 00:00: once daily [place] liquid 00 as needed Medical for Wound Branch care. chlorhexidi 2021-09 Yes [id number] Apply to [facility] ne 4 % 1-27 area(s) ity of external 00:00: once daily [place] liquid 00 as needed Medical for Wound Branch care. chlorhexidi 2021-09 Yes [id number] Apply to [facility] ne 4 % 1-27 area(s) ity of external 00:00: once daily [place] liquid 00 as needed Medical for Wound Branch care. chlorhexidi 2021-09 Yes [id number] Apply to [facility] ne 4 % 1-27 area(s) ity of external 00:00: once daily [place] liquid 00 as needed Medical for Wound Branch care. chlorhexidi 2021-09 Yes [id number] Apply to [facility] ne 4 % 1-27 area(s) ity of external 00:00: once daily [place] liquid 00 as needed Medical for Wound Branch care. chlorhexidi 2021-09 Yes [id number] Apply to [facility] ne 4 % 1-27 area(s) ity of external 00:00: once daily [place] liquid 00 as needed Medical for Wound Branch care. chlorhexidi 2021-09 Yes [id number] Apply to [facility] ne 4 % 1-27 area(s) ity of external 00:00: once daily [place] liquid 00 as needed Medical for Wound Branch care. chlorhexidi 2021-09- No [id number] Apply to [facility] ne 4 % 1-27 -30 area(s) ity of external 00:00: 00:00 once daily [place] liquid 00 :00 as needed Medical for Wound Branch care. chlorhexidi 2021-09- No [id number] Apply to [facility] ne 4 % 1-27 -30 area(s) ity of external 00:00: 00:00 once daily [place] liquid 00 :00 as needed Medical for Wound Branch care. chlorhexidi 2021-09- No [id number] Apply to [facility] ne 4 % 127 -30 area(s) ity of external 00:00: 00:00 once daily [place] liquid 00 :00 as needed Medical for Wound Branch care. chlorhexidi 2021-09- No [id number] Apply to [facility] ne 4 % 127 -30 area(s) ity of external 00:00: 00:00 once daily [place] liquid 00 :00 as needed Medical for Wound Branch care. amoxicillin 2021-09- No [id number] 1{tbl} Take 1 [facility] -clavulanat 10-08 tablet by it y of e 875-125 00:00: 00:00 mouth [place] mg per 00 :00 every 12 Medical tablet (twelve) Branch hours. amoxicillin 2021-09- No [id number] 1{tbl} Take 1 [facility] -clavulanat 10-0805 tablet by it y of e 875-125 00:00: 00:00 mouth [place] mg per 00 :00 every 12 Medical tablet (twelve) Branch hours. penicillin 2021- No [id number] 2.410 U nivers g 7-25 07-25 ity of benzathine 19:15: 18:10 [place] (BICILLIN 00 :00 Medical L-A) Branch injection 2.4 Million Units penicillin 2021- No [id number] 2.410 2.4 U nivers g 04-05 Million ity of benzathine 19:15: 18:10 Units, [place] (BICILLIN 00 :00 Intramuscu Medi ethan L-A) lar, ONCE, Branch injection 1 dose, On 2.4 Million Mon Units 04/05/22 at 1415, FLORI
Re ason for Anti-Infec tive: Documented Infection< br>Documen lars Infection Site: Blood
D uration of Therapy: Other (see Comments) penicillin 2021- No [id number] 2.410 U nivers g 03-29 ity of benzathine 18:45: 17:31 [place] (BICILLIN 00 :00 Medical L-A) Branch injection 2.4 Million Units penicillin 2021- No [id number] 2.410 2.4 U nivers g 03-29 Million ity of benzathine 18:45: 17:31 Units, [place] (BICILLIN 00 :00 Intramuscu Medi ethan L-A) lar, ONCE, Branch injection 1 dose, On 2.4 Million Mon Units 03/29/22 at 1345, FLORI
Re ason for Anti-Infec tive: Documented Infection< br>Documen lars Infection Site: Blood
D uration of Therapy: Other (see Comments) penicillin 2021- No [id number] 2.410 U nivers g 03-22 ity of benzathine 20:15: 19:03 [place] (BICILLIN 00 :00 Medical L-A) Branch injection 2.4 Million Units penicillin 2021- No [id number] 2.410 2.4 U nivers g 03-22 Million ity of benzathine 20:15: 19:03 Units, [place] (BICILLIN 00 :00 Intramuscu Medi ethan L-A) lar, ONCE, Branch injection 1 dose, On 2.4 Million Mon Units 03/22/22 at 1515, FLORI
Re ason for Anti-Infec tive: Documented Infection< br>Documen lars Infection Site: Blood
D uration of Therapy: Other (see Comments) bictegrav-e Yes [id number] 1{tbl} Take 1 [facility] mtricit-ten 5-05 tablet by ity of ofov ala 00:00: mouth [place] (BIKTARVY) 00 daily. Medical 50-200-25 Branch mg tablet doxycycline Yes [id number] 100mg Take 1 [facility] hyclate 100 5-05 capsule by it y of mg capsule 00:00: mouth [place] 00 every 12 Medical (twelve) Branch hours. chlorhexidi Yes [id number] Apply to [facility] ne 4 % 5-05 area(s) ity of external 00:00: once daily [place] liquid 00 as needed Medical for Wound Branch care. bictegrav-e Yes [id number] 1{tbl} Take 1 [facility] mtricit-ten 5-05 tablet by ity of ofov ala 00:00: mouth [place] (BIKTARVY) 00 daily. Medical 50-200-25 Branch mg tablet chlorhexidi Yes [id number] Apply to [facility] ne 4 % 5-05 area(s) ity of external 00:00: once daily [place] liquid 00 as needed Medical for Wound Branch care. bictegrav-e Yes [id number] 1{tbl} Take 1 [facility] mtricit-ten 5-05 tablet by ity of ofov ala 00:00: mouth [place] (BIKTARVY) 00 daily. Medical 50-200-25 Branch mg tablet chlorhexidi 0 Yes [id number] Apply to [facility] ne 4 % 5-05 area(s) ity of external 00:00: once daily [place] liquid 00 as needed Medical for Wound Branch care. bictegrav-e Yes [id number] 1{tbl} Take 1 [facility] mtricit-ten 5-05 tablet by ity of ofov ala 00:00: mouth [place] (BIKTARVY) 00 daily. Medical 50-200-25 Branch mg tablet chlorhexidi 2021-0 Yes [id number] Apply to [facility] ne 4 % 5-05 area(s) ity of external 00:00: once daily [place] liquid 00 as needed Medical for Wound Branch care. bictegrav-e Yes [id number] 1{tbl} Take 1 [facility] mtricit-ten 5-05 tablet by ity of ofov ala 00:00: mouth [place] (BIKTARVY) 00 daily. Medical 50-200-25 Branch mg tablet chlorhexidi 2021-0 Yes [id number] Apply to [facility] ne 4 % 5-05 area(s) ity of external 00:00: once daily [place] liquid 00 as needed Medical for Wound Branch care. bictegrav-e 2021- Yes [id number] 1{tbl} Take 1 [facility] mtricit-ten 5-05 tablet by ity of ofov ala 00:00: mouth [place] (BIKTARVY) 00 daily. Medical 50-200-25 Branch mg tablet chlorhexidi 2021-0 Yes [id number] Apply to [facility] ne 4 % 5-05 area(s) ity of external 00:00: once daily [place] liquid 00 as needed Medical for Wound Branch care. bictegrav-e Yes [id number] 1{tbl} Take 1 [facility] mtricit-ten 5-05 tablet by ity of ofov ala 00:00: mouth [place] (BIKTARVY) 00 daily. Medical 50-200-25 Branch mg tablet chlorhexidi 2021-0 Yes [id number] Apply to [facility] ne 4 % 5-05 area(s) ity of external 00:00: once daily [place] liquid 00 as needed Medical for Wound Branch care. bictegrav-e Yes [id number] 1{tbl} Take 1 [facility] mtricit-ten 5-05 tablet by ity of ofov ala 00:00: mouth [place] (BIKTARVY) 00 daily. Medical 50-200-25 Branch mg tablet chlorhexidi 2-0 Yes [id number] Apply to [facility] ne 4 % 5-05 area(s) ity of external 00:00: once daily [place] liquid 00 as needed Medical for Wound Branch care. bictegrav-e Yes [id number] 1{tbl} Take 1 [facility] mtricit-ten 5-05 tablet by ity of ofov ala 00:00: mouth [place] (BIKTARVY) 00 daily. Medical 50-200-25 Branch mg tablet chlorhexidi Yes [id number] Apply to [facility] ne 4 % 5-05 area(s) ity of external 00:00: once daily [place] liquid 00 as needed Medical for Wound Branch care. bictegrav-e Yes [id number] 1{tbl} Take 1 [facility] mtricit-ten 5-05 tablet by ity of ofov ala 00:00: mouth [place] (BIKTARVY) 00 daily. Medical 50-200-25 Branch mg tablet bictegrav-e Yes [id number] 1{tbl} Take 1 [facility] mtricit-ten 5-05 tablet by ity of ofov ala 00:00: mouth [place] (BIKTARVY) 00 daily. Medical 50-200-25 Branch mg tablet bictegrav-e Yes [id number] 1{tbl} Take 1 [facility] mtricit-ten 5-05 tablet by ity of ofov ala 00:00: mouth [place] (BIKTARV) 00 daily. Medical 50-200-25 Branch mg tablet bictegrav-e Yes [id number] 1{tbl} Take 1 [facility] mtricit-ten 5-05 tablet by ity of ofov ala 00:00: mouth [place] (BIKTARV) 00 daily. Medical 50-200-25 Branch mg tablet bictegrav-e Yes [id number] 1{tbl} Take 1 [facility] mtricit-ten 5-05 tablet by ity of ofov ala 00:00: mouth [place] (BIKTARVY) 00 daily. Medical 50-200-25 Branch mg tablet bictegrav-e Yes [id number] 1{tbl} Take 1 [facility] mtricit-ten 5-05 tablet by ity of ofov ala 00:00: mouth [place] (BIKTARVY) 00 daily. Medical 50-200-25 Branch mg tablet bictegrav-e Yes [id number] 1{tbl} Take 1 [facility] mtricit-ten 5-05 tablet by ity of ofov ala 00:00: mouth [place] (BIKTARVY) 00 daily. Medical 50-200-25 Branch mg tablet bictegrav-e Yes [id number] 1{tbl} Take 1 [facility] mtricit-ten 5-05 tablet by ity of ofov ala 00:00: mouth [place] (BIKTARVY) 00 daily. Medical 50-200-25 Branch mg tablet bictegrav-e Yes [id number] 1{tbl} Take 1 [facility] mtricit-ten 5-05 tablet by ity of ofov ala 00:00: mouth [place] (BIKTARVY) 00 daily. Medical 50-200-25 Branch mg tablet bictegrav-e Yes [id number] 1{tbl} Take 1 [facility] mtricit-ten 5-05 tablet by ity of ofov ala 00:00: mouth [place] (BIKTARVY) 00 daily. Medical 50-200-25 Branch mg tablet bictegrav-e Yes [id number] 1{tbl} Take 1 [facility] mtricit-ten 5-05 tablet by ity of ofov ala 00:00: mouth [place] (BIKTARVY) 00 daily. Medical 50-200-25 Branch mg tablet bictegrav-e Yes [id number] 1{tbl} Take 1 [facility] mtricit-ten 5-05 tablet by ity of ofov ala 00:00: mouth [place] (BIKTARVY) 00 daily. Medical 50-200-25 Branch mg tablet bictegrav-e Yes [id number] 1{tbl} Take 1 [facility] mtricit-ten 5-05 tablet by ity of ofov ala 00:00: mouth [place] (BIKTARVY) 00 daily. Medical 50-200-25 Branch mg tablet bictegrav-e Yes [id number] 1{tbl} Take 1 [facility] mtricit-ten 5-05 tablet by ity of ofov ala 00:00: mouth [place] (BIKTARVY) 00 daily. Medical 50-200-25 Branch mg tablet bictegrav-e Yes [id number] 1{tbl} Take 1 [facility] mtricit-ten 5-05 tablet by ity of ofov ala 00:00: mouth [place] (BIKTARVY) 00 daily. Medical 50-200-25 Branch mg tablet bictegrav-e Yes [id number] 1{tbl} Take 1 [facility] mtricit-ten 5-05 tablet by ity of ofov ala 00:00: mouth [place] ([facility]) 00 daily. Medical 50-200-25 Branch mg tablet bictegrav-e Yes [id number] 1{tbl} Take 1 [facility] mtricit-ten 5-05 tablet by ity of ofov ala 00:00: mouth [place] ([facility]) 00 daily. Medical 50-200-25 Branch mg tablet bictegrav-e Yes [id number] 1{tbl} Take 1 Univers mtricit-ten 5-05 tablet by ity of ofov ala 00:00: mouth [place] ([facility]) 00 daily. Medical 50-200-25 Branch mg tablet bictegrav-e 2021- No [id number] 1{tbl} Take 1 Univers mtricit-ten 5-05 12-15 tablet by it y of ofov ala 00:00: 00:00 [facility] ([facility]) 00 :00 daily. Medical 50-200-25 Branch mg tablet bictegrav-e 2021- No [id number] 1{tbl} Take 1 Univers mtricit-ten 5-05 12-15 tablet by it y of ofov ala 00:00: 00:00 [facility] ([facility]) 00 :00 daily. Medical 50-200-25 Branch mg tablet bictegrav-e 2021- No [id number] 1{tbl} Take 1 Univers mtricit-ten 5-05 12-15 tablet by it y of ofov ala 00:00: 00:00 [facility] ([facility]) 00 :00 daily. Medical 50-200-25 Branch mg tablet chlorhexidi 2021- No [id number] Apply to Univers ne 4 % 01-1427 area(s) ity of external 00:00: 00:00 [place] daily [place] liquid 00 :00 as needed Medical for Wound Branch care. doxycycline 2021- No [id number] 100mg Take 1 [facility] hyclate 100 01-14 07-18 capsule by i ty of mg capsule 00:00: 00:00 mouth [place] 00 :00 every 12 Medical (twelve) Branch hours. ATORVASTATI 2018-0 Yes [id number] 40mg TAKE 1 [facility] N 40 mg 6-27 TABLET BY ity of tablet 00:00: MOUTH AT [place] [address] BEDTIME. Medical Branch ATORVASTATI 0 Yes [id number] 40mg TAKE 1 [facility] N 40 mg 6-27 TABLET BY ity of tablet 00:00: MOUTH AT [place] [address] BEDTIME. Medical Branch ATORVASTATI 0 Yes [id number] 40mg TAKE 1 [facility] N 40 mg 6-27 TABLET BY ity of tablet 00:00: MOUTH AT [place] [address] BEDTIME. Medical Branch ATORVASTATI Yes [id number] 40mg TAKE 1 [facility] N 40 mg 6-27 TABLET BY ity of tablet 00:00: MOUTH AT [place] [address] BEDTIME. Medical Branch ATORVASTATI Yes [id number] 40mg TAKE 1 [facility] N 40 mg 6-27 TABLET BY ity of tablet 00:00: MOUTH AT [place] [address] BEDTIME. Medical Branch ATORVASTATI Yes [id number] 40mg TAKE 1 [facility] N 40 mg 6-27 TABLET BY ity of tablet 00:00: MOUTH AT [place] [address] BEDTIME. Medical Branch ATORVASTATI Yes [id number] 40mg TAKE 1 [facility] N 40 mg 6-27 TABLET BY ity of tablet 00:00: MOUTH AT [place] [address] BEDTIME. Medical Branch ATORVASTATI 0 Yes [id number] 40mg TAKE 1 [facility] N 40 mg 6-27 TABLET BY ity of tablet 00:00: MOUTH AT [place] [address] BEDTIME. Medical Branch ATORVASTATI 2018-0 Yes [id number] 40mg TAKE 1 [facility] N 40 mg 6-27 TABLET BY ity of tablet 00:00: MOUTH AT [place] [address] BEDTIME. Medical Branch ATORVASTATI 2018-0 Yes [id number] 40mg TAKE 1 [facility] N 40 mg 6-27 TABLET BY ity of tablet 00:00: MOUTH AT [place] [address] BEDTIME. Medical Branch ATORVASTATI 2018-0 Yes [id number] 40mg TAKE 1 [facility] N 40 mg 6-27 TABLET BY ity of tablet 00:00: MOUTH AT [place] [address] BEDTIME. Medical Branch ATORVASTATI 2018-0 Yes [id number] 40mg TAKE 1 [facility] N 40 mg 6-27 TABLET BY ity of tablet 00:00: MOUTH AT [place] [address] BEDTIME. Medical Branch ATORVASTATI 2019-0 Yes [id number] 40mg TAKE 1 [facility] N 40 mg 6-27 TABLET BY ity of tablet 00:00: MOUTH AT [place] BEDTIME. Medical Branch ATORVASTATI 2018-0 Yes [id number] 40mg TAKE 1 [facility] N 40 mg 6-27 TABLET BY ity of tablet 00:00: MOUTH AT [place] BEDTIME. Medical Branch ATORVASTA 2018-0 Yes [id number] 40mg TAKE 1 [facility] N 40 mg 6-27 TABLET BY ity of tablet 00:00: MOUTH AT [place] BEDTIME. Medical Branch ATORVASTATI 2018-0 Yes [id number] 40mg TAKE 1 [facility] N 40 mg 6-27 TABLET BY ity of tablet 00:00: MOUTH AT [place] BEDTIME. Medical Branch ATORVASTA 0 Yes [id number] 40mg TAKE 1 [facility] N 40 mg 6-27 TABLET BY ity of tablet 00:00: MOUTH AT [place] BEDTIME. Medical Branch ATORVASTA 0 Yes [id number] 40mg TAKE 1 [facility] N 40 mg 6-27 TABLET BY ity of tablet 00:00: MOUTH AT [place] BEDTIME. Medical Branch ATORVASTA 0 Yes [id number] 40mg TAKE 1 [facility] N 40 mg 6-27 TABLET BY ity of tablet 00:00: MOUTH AT [place] BEDTIME. Medical Branch ATORVASTATI 2018-0 Yes [id number] 40mg TAKE 1 [facility] N 40 mg 6-27 TABLET BY ity of tablet 00:00: MOUTH AT [place] BEDTIME. Medical Branch ATORVASTATI 2019-0 Yes [id number] 40mg TAKE 1 [facility] N 40 mg 6-27 TABLET BY ity of tablet 00:00: MOUTH AT [place] BEDTIME. Medical Branch ATORVASTATI 2019-0 Yes [id number] 40mg TAKE 1 [facility] N 40 mg 6-27 TABLET BY ity of tablet 00:00: MOUTH AT [place] BEDTIME. Medical Branch ATORVASTATI 2018-0 Yes [id number] 40mg TAKE 1 [facility] N 40 mg 6-27 TABLET BY ity of tablet 00:00: MOUTH AT [place] [address] BEDTIME. Medical Branch ATORVASTA 2019-0 Yes [id number] 40mg TAKE 1 [facility] N 40 mg 6-27 TABLET BY ity of tablet 00:00: MOUTH AT [place] 00 BEDTIME. Medical Branch ATORVASTATI 2019-0 Yes [id number] 40mg TAKE 1 [facility] N 40 mg 6-27 TABLET BY ity of tablet 00:00: MOUTH AT [place] BEDTIME. Medical Branch ATORVASTATI 2018-0 Yes [id number] 40mg TAKE 1 [facility] N 40 mg 6-27 TABLET BY ity of tablet 00:00: MOUTH AT [place] BEDTIME. Medical Branch ATORVASTATI 2018-0 Yes [id number] 40mg TAKE 1 [facility] N 40 mg 6-27 TABLET BY ity of tablet 00:00: MOUTH AT [place] BEDTIME. Medical Branch ATORVASTATI 2018-0 Yes [id number] 40mg TAKE 1 [facility] N 40 mg 6-27 TABLET BY ity of tablet 00:00: MOUTH AT [place] BEDTIME. Medical Branch ATORVASTA 2018-0 Yes [id number] 40mg TAKE 1 [facility] N 40 mg 6-27 TABLET BY ity of tablet 00:00: MOUTH AT [place] BEDTIME. Medical Branch ATORVASTATI 2018-0 Yes [id number] 40mg TAKE 1 [facility] N 40 mg 6-27 TABLET BY ity of tablet 00:00: MOUTH AT [place] [address] BEDTIME. Medical Branch ATORVASTATI 0 Yes [id number] 40mg TAKE 1 [facility] N 40 mg 6-27 TABLET BY ity of tablet 00:00: MOUTH AT [place] [address] BEDTIME. Medical Branch ATORVASTATI 2018-0 Yes [id number] 40mg TAKE 1 [facility] N 40 mg 6-27 TABLET BY ity of tablet 00:00: MOUTH AT [place] [address] BEDTIME. Medical Branch ATORVASTATI 2019-0 Yes [id number] 40mg TAKE 1 [facility] N 40 mg 6-27 TABLET BY ity of tablet 00:00: MOUTH AT [place] BEDTIME. Medical Branch ATORVASTATI 2019-0 Yes [id number] 40mg TAKE 1 [facility] N 40 mg 6-27 TABLET BY ity of tablet 00:00: MOUTH AT [place] BEDTIME. Medical Branch ATORVASTATI 2019-0 Yes [id number] 40mg TAKE 1 [facility] N 40 mg 6-27 TABLET BY ity of tablet 00:00: MOUTH AT [place] [address] BEDTIME. Medical Branch ATORVASTATI 2019-0 Yes [id number] 40mg TAKE 1 [facility] N 40 mg 6-27 TABLET BY ity of tablet 00:00: MOUTH AT [place] [address] BEDTIME. Medical Branch ATORVASTATI 2019-0 Yes [id number] 40mg TAKE 1 [facility] N 40 mg 6-27 TABLET BY ity of tablet 00:00: MOUTH AT [place] 00 BEDTIME. Medical Branch ATORVASTA 0 Yes [id number] 40mg TAKE 1 [facility] N 40 mg 6-27 TABLET BY ity of tablet 00:00: MOUTH AT [place] BEDTIME. Medical Branch ATORVASTA 2018-0 Yes [id number] 40mg TAKE 1 [facility] N 40 mg 6-27 TABLET BY ity of tablet 00:00: MOUTH AT [place] BEDTIME. Medical Branch ATORVASTA 0 Yes [id number] 40mg TAKE 1 [facility] N 40 mg 6-27 TABLET BY ity of tablet 00:00: MOUTH AT [place] BEDTIME. Medical Branch ATORVASTA 0 Yes [id number] 40mg TAKE 1 [facility] N 40 mg 6-27 TABLET BY ity of tablet 00:00: MOUTH AT [place] BEDTIME. Medical Branch ATORVASTA 0 Yes [id number] 40mg TAKE 1 [facility] N 40 mg 6-27 TABLET BY ity of tablet 00:00: MOUTH AT [place] [address] BEDTIME. Medical Branch ATORVASTA Yes [id number] 40mg TAKE 1 [facility] N 40 mg 6-27 TABLET BY ity of tablet 00:00: MOUTH AT [place] [address] BEDTIME. Medical Branch ATORVASTA 0 Yes [id number] 40mg TAKE 1 [facility] N 40 mg 6-27 TABLET BY ity of tablet 00:00: MOUTH AT [place] [address] BEDTIME. Medical Branch ATORVASTA 2018-0 Yes [id number] 40mg TAKE 1 [facility] N 40 mg 6-27 TABLET BY ity of tablet 00:00: MOUTH AT [place] [address] BEDTIME. Medical Branch ATORVASTA 0 Yes [id number] 40mg TAKE 1 [facility] N 40 mg 6-27 TABLET BY ity of tablet 00:00: MOUTH AT [place] [address] BEDTIME. Medical Branch ATORVASTA 2018-0 Yes [id number] 40mg TAKE 1 [facility] N 40 mg 6-27 TABLET BY ity of tablet 00:00: MOUTH AT [place] [address] BEDTIME. Medical Branch ATORVASTA 0 Yes [id number] 40mg TAKE 1 [facility] N 40 mg 6-27 TABLET BY ity of tablet 00:00: MOUTH AT [place] [address] BEDTIME. Medical Branch ATORVASTA 2018-0 Yes [id number] 40mg TAKE 1 [facility] N 40 mg 6-27 TABLET BY ity of tablet 00:00: MOUTH AT [place] [address] BEDTIME. Medical Branch ATORVASTA Yes [id number] 40mg TAKE 1 [facility] N 40 mg 6-27 TABLET BY ity of tablet 00:00: MOUTH AT [place] [address] BEDTIME. Medical Branch ATORVASTA Yes [id number] 40mg TAKE 1 [facility] N 40 mg 6-27 TABLET BY ity of tablet 00:00: MOUTH AT [place] [address] BEDTIME. [facility] [id number] 40mg TAKE 1 [facility] N 40 mg 6-27 TABLET BY ity of tablet 00:00: MOUTH AT [place] [address] BEDTIME. [facility] [id number] 40mg TAKE 1 [facility] N 40 mg 6-27 TABLET BY ity of tablet 00:00: MOUTH AT [place] [address] BEDTIME. Medical Branch ATORVASTA Yes [id number] 40mg TAKE 1 [facility] N 40 mg 6-27 TABLET BY ity of tablet 00:00: MOUTH AT [place] [address] BEDTIME. [facility] Yes [id number] 40mg TAKE 1 [facility] N 40 mg 6-27 TABLET BY ity of tablet 00:00: MOUTH AT [place] [address] BEDTIME. Medical Branch ATORVASTA Yes [id number] 40mg TAKE 1 [facility] N 40 mg 6-27 TABLET BY ity of tablet 00:00: MOUTH AT [place] [address] BEDTIME. [facility] Branch Immunizations Ordered Filled Date Status Comments Source Immunization Name Immunization Name SARS-COV-2 COVID-19 2022-08-26 Completed Unive rsity of JOHANA-SUCROSE 00:00:00 [place] Medica l VACCINE 12 YRS+, Branch BIVALENT 0.3ML, IM, (PFIZER ORTIZ TOP BOOSTER) Influenza Virus 2022-08-26 Completed Universit y of Vaccine Quad IM, 00:00:00 [place] Me dical Preserv and ABX Branch Free 6 MO-64 YRS SARS-COV-2 COVID-19 2022-08-26 Completed Unive rsity of JOHANA-SUCROSE 00:00:00 [place] Medica l VACCINE 12 YRS+, Branch BIVALENT 0.3ML, IM, (PFIZER ORTIZ TOP BOOSTER) Influenza Virus 2022-08-26 Completed Universit y of Vaccine Quad IM, 00:00:00 [place] Me dical Preserv and ABX Branch Free 6 MO-64 YRS SARS-COV-2 COVID-19 2022-08-26 Completed Unive rsity of JOHANA-SUCROSE 00:00:00 [place] Medica l VACCINE 12 YRS+, Branch BIVALENT 0.3ML, IM, (PFIZER ORTIZ TOP BOOSTER) Influenza Virus 2022-08-26 Completed Universit y of Vaccine Quad IM, 00:00:00 [place] Me dical Preserv and ABX Branch Free 6 MO-64 YRS SARS-COV-2 COVID-19 2022-08-26 Completed Unive rsity of JOHANA-SUCROSE 00:00:00 [place] Medica l VACCINE 12 YRS+, Branch BIVALENT 0.3ML, IM, (PFIZER ORTIZ TOP BOOSTER) Influenza Virus 2022-08-26 Completed Universit y of Vaccine Quad IM, 00:00:00 [place] Me dical Preserv and ABX Branch Free 6 MO-64 YRS SARS-COV-2 COVID-19 2022-08-26 Completed Unive rsity of JOHANA-SUCROSE 00:00:00 [place] Medica l VACCINE 12 YRS+, Branch BIVALENT 0.3ML, IM, (PFIZER ORTIZ TOP BOOSTER) Influenza Virus 2022-08-26 Completed Universit y of Vaccine Quad IM, 00:00:00 [place] Me dical Preserv and ABX Branch Free 6 MO-64 YRS SARS-COV-2 COVID-19 2022-08-26 Completed Unive rsity of JOHANA-SUCROSE 00:00:00 [place] Medica l VACCINE 12 YRS+, Branch BIVALENT 0.3ML, IM, (PFIZER ORTIZ TOP BOOSTER) Influenza Virus 2022-08-26 Completed Universit y of Vaccine Quad IM, 00:00:00 [place] Me dical Preserv and ABX Branch Free 6 MO-64 YRS SARS-COV-2 COVID-19 2022-08-26 Completed Unive rsity of JOHANA-SUCROSE 00:00:00 [place] Medica l VACCINE 12 YRS+, Branch BIVALENT 0.3ML, IM, (PFIZER ORTIZ TOP BOOSTER) Influenza Virus 2022-08-26 Completed Universit y of Vaccine Quad IM, 00:00:00 [place] Me dical Preserv and ABX Branch Free 6 MO-64 YRS SARS-COV-2 COVID-19 2022-08-26 Completed Unive rsity of JOHANA-SUCROSE 00:00:00 [place] Medica l VACCINE 12 YRS+, Branch BIVALENT 0.3ML, IM, (PFIZER ORTIZ TOP BOOSTER) Influenza Virus 2022-08-26 Completed Universit y of Vaccine Quad IM, 00:00:00 [place] Me dical Preserv and ABX Branch Free 6 MO-64 YRS SARS-COV-2 COVID-19 2022-08-26 Completed Unive rsity of JOHANA-SUCROSE 00:00:00 [place] Medica l VACCINE 12 YRS+, Branch BIVALENT 0.3ML, IM, (PFIZER ORTIZ TOP BOOSTER) Influenza Virus 2022-08-26 Completed Universit y of Vaccine Quad IM, 00:00:00 [place] Me dical Preserv and ABX Branch Free 6 MO-64 YRS SARS-COV-2 COVID-19 2022-08-26 Completed Unive rsity of JOHANA-SUCROSE 00:00:00 [place] Medica l VACCINE 12 YRS+, Branch BIVALENT 0.3ML, IM, (PFIZER ORTIZ TOP BOOSTER) Influenza Virus 2022-08-26 Completed Universit y of Vaccine Quad IM, 00:00:00 [place] Me dical Preserv and ABX Branch Free 6 MO-64 YRS SARS-COV-2 COVID-19 2022-08-26 Completed Unive rsity of JOHANA-SUCROSE 00:00:00 [place] Medica l VACCINE 12 YRS+, Branch BIVALENT 0.3ML, IM, (PFIZER ORTIZ TOP BOOSTER) Influenza Virus 2022-08-26 Completed Universit y of Vaccine Quad IM, 00:00:00 [place] Me dical Preserv and ABX Branch Free 6 MO-64 YRS SARS-COV-2 COVID-19 2022-08-26 Completed Unive rsity of JOHANA-SUCROSE 00:00:00 [place] Medica l VACCINE 12 YRS+, Branch BIVALENT 0.3ML, IM, (PFIZER ORTIZ TOP BOOSTER) Influenza Virus 2022-08-26 Completed Universit y of Vaccine Quad IM, 00:00:00 [place] Me dical Preserv and ABX Branch Free 6 MO-64 YRS SARS-COV-2 COVID-19 2022-08-26 Completed Unive rsity of JOHANA-SUCROSE 00:00:00 [place] Medica l VACCINE 12 YRS+, Branch BIVALENT 0.3ML, IM, (PFIZER ORTIZ TOP BOOSTER) Influenza Virus 2022-08-26 Completed Universit y of Vaccine Quad IM, 00:00:00 [place] Me dical Preserv and ABX Branch Free 6 MO-64 YRS SARS-COV-2 COVID-19 2022-08-26 Completed Unive rsity of JOHANA-SUCROSE 00:00:00 [place] Medica l VACCINE 12 YRS+, Branch BIVALENT 0.3ML, IM, (PFIZER ORTIZ TOP) Influenza Virus 2022-08-26 Completed Universit y of Vaccine Quad IM, 00:00:00 [place] Me dical Preserv and ABX Branch Free 6 MO-64 YRS SARS-COV-2 COVID-19 2022-08-26 Completed Unive rsity of JOHANA-SUCROSE 00:00:00 [place] Medica l VACCINE 12 YRS+, Branch BIVALENT 0.3ML, IM, (PFIZER ORTIZ TOP) Influenza Virus 2022-08-26 Completed Universit y of Vaccine Quad IM, 00:00:00 [place] Me dical Preserv and ABX Branch Free 6 MO-64 YRS SARS-COV-2 COVID-19 2022-08-26 Completed Unive rsity of JOHANA-SUCROSE 00:00:00 [place] Medica l VACCINE 12 YRS+, Branch BIVALENT 0.3ML, IM, (PFIZER ORTIZ TOP) Influenza Virus 2022-08-26 Completed Universit y of Vaccine Quad IM, 00:00:00 [place] Me dical Preserv and ABX Branch Free 6 MO-64 YRS SARS-COV-2 COVID-19 2022-08-26 Completed Unive rsity of JOHANA-SUCROSE 00:00:00 [place] Medica l VACCINE 12 YRS+, Branch BIVALENT 0.3ML, IM, (PFIZER ORTIZ TOP) Influenza Virus 2022-08-26 Completed Universit y of Vaccine Quad IM, 00:00:00 [place] Me dical Preserv and ABX Branch Free 6 MO-64 YRS SARS-COV-2 COVID-19 2022-08-26 Completed Unive rsity of JOHANA-SUCROSE 00:00:00 [place] Medica l VACCINE 12 YRS+, Branch BIVALENT 0.3ML, IM, (PFIZER ORTIZ TOP) Influenza Virus 2022-08-26 Completed Universit y of Vaccine Quad IM, 00:00:00 [place] Me dical Preserv and ABX Branch Free 6 MO-64 YRS SARS-COV-2 COVID-19 2022-08-26 Completed Unive rsity of JOHANA-SUCROSE 00:00:00 [place] Medica l VACCINE 12 YRS+, Branch BIVALENT 0.3ML, IM, (PFIZER ORTIZ TOP) Influenza Virus 2022-08-26 Completed Universit y of Vaccine Quad IM, 00:00:00 [place] Me dical Preserv and ABX Branch Free 6 MO-64 YRS SARS-COV-2 COVID-19 2022-08-26 Completed Unive rsity of JOHANA-SUCROSE 00:00:00 [place] Medica l VACCINE 12 YRS+, Branch BIVALENT 0.3ML, IM, (PFIZER ORTIZ TOP) Influenza Virus 2022-08-26 Completed Universit y of Vaccine Quad IM, 00:00:00 [place] Me dical Preserv and ABX Branch Free 6 MO-64 YRS SARS-COV-2 COVID-19 2022-08-26 Completed Unive rsity of JOHANA-SUCROSE 00:00:00 [place] Medica l VACCINE 12 YRS+, Branch BIVALENT 0.3ML, IM, (PFIZER ORTIZ TOP) Influenza Virus 2022-08-26 Completed Universit y of Vaccine Quad IM, 00:00:00 [place] Me dical Preserv and ABX Branch Free 6 MO-64 YRS SARS-COV-2 COVID-19 2022-08-26 Completed Unive rsity of JOHANA-SUCROSE 00:00:00 [place] Medica l VACCINE 12 YRS+, Branch BIVALENT 0.3ML, IM, (PFIZER ORTIZ TOP) Influenza Virus 2022-08-26 Completed Universit y of Vaccine Quad IM, 00:00:00 [place] Me dical Preserv and ABX Branch Free 6 MO-64 YRS SARS-COV-2 COVID-19 2022-08-26 Completed Unive rsity of JOHANA-SUCROSE 00:00:00 [place] Medica l VACCINE 12 YRS+, Branch BIVALENT 0.3ML, IM, (PFIZER ORTIZ TOP) Influenza Virus 2022-08-26 Completed Universit y of Vaccine Quad IM, 00:00:00 [place] Me dical Preserv and ABX Branch Free 6 MO-64 YRS SARS-COV-2 COVID-19 2022-08-26 Completed Unive rsity of JOHANA-SUCROSE 00:00:00 [place] Medica l VACCINE 12 YRS+, Branch BIVALENT 0.3ML, IM, (PFIZER ORTIZ TOP) Influenza Virus 2022-08-26 Completed Universit y of Vaccine Quad IM, 00:00:00 [place] Me dical Preserv and ABX Branch Free 6 MO-64 YRS SARS-COV-2 COVID-19 2022-08-26 Completed Unive rsity of JOHANA-SUCROSE 00:00:00 [place] Medica l VACCINE 12 YRS+, Branch BIVALENT 0.3ML, IM, (PFIZER ORTIZ TOP) Influenza Virus 2022-08-26 Completed Universit y of Vaccine Quad IM, 00:00:00 [place] Me dical Preserv and ABX Branch Free 6 MO-64 YRS SARS-COV-2 COVID-19 2022-08-26 Completed Unive rsity of JOHANA-SUCROSE 00:00:00 [place] Medica l VACCINE 12 YRS+, Branch BIVALENT 0.3ML, IM, (PFIZER ORTIZ TOP) Influenza Virus 2022-08-26 Completed Universit y of Vaccine Quad IM, 00:00:00 [place] Me dical Preserv and ABX Branch Free 6 MO-64 YRS SARS-COV-2 COVID-19 2022-08-26 Completed Unive rsity of JOHANA-SUCROSE 00:00:00 [place] Medica l VACCINE 12 YRS+, Branch BIVALENT 0.3ML, IM, (PFIZER ORTIZ TOP) Influenza Virus 2022-08-26 Completed Universit y of Vaccine Quad IM, 00:00:00 [place] Me dical Preserv and ABX Branch Free 6 MO-64 YRS (FLUCELVAX) Influenza Virus 2021-10-15 Completed Universit y of [...] and ABX Branch Free 6 MO-64 YRS (FLUCELVAX) SARS-COV-2 COVID-19 2021-06-17 Completed Unive rsity of PFIZER VACCINE 00:00:00 [facility] SARS-COV-2 COVID-19 2021-06-17 Completed Unive rsity of PFIZER VACCINE 00:00:00 [facility] SARS-COV-2 COVID-19 2021-06-17 Completed Unive rsity of PFIZER VACCINE 00:00:00 [facility] SARS-COV-2 COVID-19 2021-06-17 Completed Unive rsity of PFIZER VACCINE 00:00:00 [facility] SARS-COV-2 COVID-19 2021-06-17 Completed Unive rsity of PFIZER VACCINE 00:00:00 [facility] SARS-COV-2 COVID-19 2021-06-17 Completed Unive rsity of PFIZER VACCINE 00:00:00 [facility] [place] Branch SARS-COV-2 COVID-19 2021-06-17 Completed Unive rsity of PFIZER VACCINE 00:00:00 [facility] [place] Branch SARS-COV-2 COVID-19 2021-06-17 Completed Unive rsity of PFIZER VACCINE 00:00:00 [facility] [place] Branch SARS-COV-2 COVID-19 2021-06-17 Completed Unive rsity of PFIZER VACCINE 00:00:00 [facility] [place] Branch SARS-COV-2 COVID-19 2021-06-17 Completed Unive rsity of PFIZER VACCINE 00:00:00 [facility] [place] Branch SARS-COV-2 COVID-19 2021-06-17 Completed Unive rsity of PFIZER VACCINE 00:00:00 [facility] [place] Branch SARS-COV-2 COVID-19 2021-06-17 Completed Unive rsity of PFIZER VACCINE 00:00:00 [facility] [place] Branch SARS-COV-2 COVID-19 2021-06-17 Completed Unive rsity of PFIZER VACCINE 00:00:00 [facility] [place] Branch SARS-COV-2 COVID-19 2021-06-17 Completed Unive rsity of PFIZER VACCINE 00:00:00 [facility] [place] Branch SARS-COV-2 COVID-19 2021-06-17 Completed Unive rsity of PFIZER VACCINE 00:00:00 [facility] SARS-COV-2 COVID-19 2021-06-17 Completed Unive rsity of PFIZER VACCINE 00:00:00 [facility] SARS-COV-2 COVID-19 2021-06-17 Completed Unive rsity of PFIZER VACCINE 00:00:00 [facility] [place] Branch SARS-COV-2 COVID-19 2021-06-17 Completed Unive rsity of PFIZER VACCINE 00:00:00 [facility] SARS-COV-2 COVID-19 2021-06-17 Completed Unive rsity of PFIZER VACCINE 00:00:00 [facility] SARS-COV-2 COVID-19 2021-06-17 Completed Unive rsity of PFIZER VACCINE 00:00:00 [facility] SARS-COV-2 COVID-19 2021-06-17 Completed Unive rsity of PFIZER VACCINE 00:00:00 [place] [facility] SARS-COV-2 COVID-19 2021-06-17 Completed Unive rsity of PFIZER VACCINE 00:00:00 [facility] [place] [facility] SARS-COV-2 COVID-19 2021-06-17 Completed Unive rsity of PFIZER VACCINE 00:00:00 [facility] [place] [facility] SARS-COV-2 COVID-19 2021-06-17 Completed Unive rsity of PFIZER VACCINE 00:00:00 [facility] [place] [facility] SARS-COV-2 COVID-19 2021-06-17 Completed Unive rsity of PFIZER VACCINE 00:00:00 [facility] [place] [facility] SARS-COV-2 COVID-19 2021-06-17 Completed Unive rsity of PFIZER VACCINE 00:00:00 [facility] [place] [facility] SARS-COV-2 COVID-19 2021-06-17 Completed Unive rsity of PFIZER VACCINE 00:00:00 [facility] [place] [facility] SARS-COV-2 COVID-19 2021-06-17 Completed Unive rsity of PFIZER VACCINE 00:00:00 [facility] [place] [facility] SARS-COV-2 COVID-19 2021-06-17 Completed Unive rsity of PFIZER VACCINE 00:00:00 [facility] [place] [facility] SARS-COV-2 COVID-19 2021-06-17 Completed Unive rsity of PFIZER VACCINE 00:00:00 [facility] [place] [facility] SARS-COV-2 COVID-19 2021-06-17 Completed Unive rsity of PFIZER VACCINE 00:00:00 [facility] [place] [facility] SARS-COV-2 COVID-19 2021-06-17 Completed Unive rsity of PFIZER VACCINE 00:00:00 [facility] [place] [facility] SARS-COV-2 COVID-19 2021-06-17 Completed Unive rsity of PFIZER VACCINE 00:00:00 [facility] [place] [facility] SARS-COV-2 COVID-19 2021-06-17 Completed Unive rsity of PFIZER VACCINE 00:00:00 [facility] [place] [facility] SARS-COV-2 COVID-19 2021-06-17 Completed Unive rsity of PFIZER VACCINE 00:00:00 [facility] SARS-COV-2 COVID-19 2021-06-17 Completed Unive rsity of PFIZER VACCINE 00:00:00 [facility] [place] [facility] SARS-COV-2 COVID-19 2021-06-17 Completed Unive rsity of PFIZER VACCINE 00:00:00 [facility] [place] [facility] SARS-COV-2 COVID-19 2021-06-17 Completed Unive rsity of PFIZER VACCINE 00:00:00 [facility] [place] [facility] SARS-COV-2 COVID-19 2021-06-17 Completed Unive rsity of PFIZER VACCINE 00:00:00 [facility] [place] [facility] SARS-COV-2 COVID-19 2021-06-17 Completed Unive rsity of PFIZER VACCINE 00:00:00 [facility] [place] [facility] SARS-COV-2 COVID-19 2021-06-17 Completed Unive rsity of PFIZER VACCINE 00:00:00 [facility] [place] [facility] SARS-COV-2 COVID-19 2021-06-17 Completed Unive rsity of PFIZER VACCINE 00:00:00 [facility] [place] [facility] SARS-COV-2 COVID-19 2021-06-17 Completed Unive rsity of PFIZER VACCINE 00:00:00 [facility] [place] [facility] SARS-COV-2 COVID-19 2021-06-17 Completed Unive rsity of PFIZER VACCINE 00:00:00 [facility] [place] [facility] SARS-COV-2 COVID-19 2021-06-17 Completed Unive rsity of PFIZER VACCINE 00:00:00 [facility] [place] [facility] SARS-COV-2 COVID-19 2021-06-17 Completed Unive rsity of PFIZER VACCINE 00:00:00 [facility] [place] [facility] SARS-COV-2 COVID-19 2021-06-17 Completed [facility] PFIZER VACCINE 00:00:00 [facility] [place] [facility] SARS-COV-2 COVID-19 2021-06-17 Completed [facility] PFIZER VACCINE 00:00:00 [facility] [place] [facility] SARS-COV-2 COVID-19 2021-06-17 Completed [facility] PFIZER VACCINE 00:00:00 [facility] [place] [facility] SARS-COV-2 COVID-19 2021-06-17 Completed [facility] PFIZER VACCINE 00[facility]00:00 [facility] [place] [facility] SARS-COV-2 COVID-19 2021-06-17 Completed [facility] PFIZER VACCINE 00:00:00 [facility] SARS-COV-2 COVID-19 2021-06-17 Completed [facility] PFIZER VACCINE 00:00:00 [place] [facility] SARS-COV-2 COVID-19 2021-06-17 Completed [facility] PFIZER VACCINE 00:00:00 [facility] [place] [facility] SARS-COV-2 COVID-19 2021-06-17 Completed [facility] of PFIZER VACCINE 00:00:00 [facility] [place] [facility] SARS-COV-2 COVID-19 2020-12-24 Completed [facility] of PFIZER VACCINE 00:00:00 [facility] [place] [facility] SARS-COV-2 COVID-19 2020-12-24 Completed [facility] of PFIZER VACCINE 00:00:00 [facility] [place] [facility] SARS-COV-2 COVID-19 2020-12-24 Completed [facility] of PFIZER VACCINE 00:00:00 [facility] [place] [facility] SARS-COV-2 COVID-19 2020-12-24 Completed [facility] of PFIZER VACCINE 00:00:00 [facility] [place] [facility] SARS-COV-2 COVID-19 2020-12-24 Completed [facility] of PFIZER VACCINE 00:00:00 [facility] [place] [facility] SARS-COV-2 COVID-19 2020-12-24 Completed [facility] of PFIZER VACCINE 00:00:00 [facility] [place] [facility] SARS-COV-2 COVID-19 2020-12-24 Completed [facility] of PFIZER VACCINE 00:00:00 [facility] [place] [facility] SARS-COV-2 COVID-19 2020-12-24 Completed [facility] of PFIZER VACCINE 00:00:00 [facility] [place] [facility] SARS-COV-2 COVID-19 2020-12-24 Completed [facility] of PFIZER VACCINE 00:00:00 [facility] [place] [facility] SARS-COV-2 COVID-19 2020-12-24 Completed [facility] of PFIZER VACCINE 00:00:00 [facility] [place] [facility] SARS-COV-2 COVID-19 2020-12-24 Completed [facility] of PFIZER VACCINE 00:00:00 [facility] [place] [facility] SARS-COV-2 COVID-19 2020-12-24 Completed [facility] PFIZER VACCINE 00:00:00 [facility] [place] [facility] SARS-COV-2 COVID-19 2020-12-24 Completed [facility] of PFIZER VACCINE 00:00:00 [facility] [place] [facility] SARS-COV-2 COVID-19 2020-12-24 Completed [facility] PFIZER VACCINE 00:00:00 [facility] [place] [facility] SARS-COV-2 COVID-19 2020-12-24 Completed [facility] PFIZER VACCINE 00:00:00 [facility] [place] [facility] SARS-COV-2 COVID-19 2020-12-24 Completed [facility] PFIZER VACCINE 00:00:00 [facility] SARS-COV-2 COVID-19 2020-12-24 Completed [facility] of PFIZER VACCINE 00:00:00 [facility] [place] [facility] SARS-COV-2 COVID-19 2020-12-24 Completed [facility] of PFIZER VACCINE 00:00:00 [facility] [place] [facility] SARS-COV-2 COVID-19 2020-12-24 Completed [facility] PFIZER VACCINE 00:00:00 [facility] [place] [facility] SARS-COV-2 COVID-19 2020-12-24 Completed [facility] PFIZER VACCINE 00:00:00 [facility] [place] [facility] SARS-COV-2 COVID-19 2020-12-24 Completed [facility] PFIZER VACCINE 00:00:00 [facility] [place] [facility] SARS-COV-2 COVID-19 2020-12-24 Completed [facility] of PFIZER VACCINE 00:00:00 [facility] [place] [facility] SARS-COV-2 COVID-19 2020-12-24 Completed [facility] PFIZER VACCINE 00:00:00 [facility] [place] [facility] SARS-COV-2 COVID-19 2020-12-24 Completed [facility] PFIZER VACCINE 00:00:00 [facility] SARS-COV-2 COVID-19 2020-12-24 Completed [facility] of PFIZER VACCINE 00:00:00 [facility] [place] [facility] SARS-COV-2 COVID-19 2020-12-24 Completed [facility] PFIZER VACCINE 00:00:00 [facility] [place] [facility] SARS-COV-2 COVID-19 2020-12-24 Completed [facility] PFIZER VACCINE 00:00:00 [facility] [place] [facility] SARS-COV-2 COVID-19 2020-12-24 Completed [facility] PFIZER VACCINE 00:00:00 [facility] SARS-COV-2 COVID-19 2020-12-24 Completed [facility] PFIZER VACCINE 00:00:00 [facility] SARS-COV-2 COVID-19 2020-12-24 Completed [facility] PFIZER VACCINE 00:00:00 [facility] [place] [facility] SARS-COV-2 COVID-19 2020-12-24 Completed [facility] PFIZER VACCINE 00:00:00 [place] [facility] SARS-COV-2 COVID-19 2020-12-24 Completed [facility] of PFIZER VACCINE 00:00:00 [facility] [place] [facility] SARS-COV-2 COVID-19 2020-12-24 Completed [facility] PFIZER VACCINE 00:00:00 [facility] [place] [facility] SARS-COV-2 COVID-19 2020-12-24 Completed [facility] PFIZER VACCINE 00:00:00 [facility] [place] [facility] SARS-COV-2 COVID-19 2020-12-24 Completed [facility] PFIZER VACCINE 00:00:00 [facility] [place] [facility] SARS-COV-2 COVID-19 2020-12-24 Completed [facility] of PFIZER VACCINE 00:00:00 [facility] [place] [facility] SARS-COV-2 COVID-19 2020-12-24 Completed [facility] PFIZER VACCINE 00:00:00 [facility] [place] [facility] SARS-COV-2 COVID-19 2020-12-24 Completed [facility] PFIZER VACCINE 00:00:00 [facility] [place] [facility] SARS-COV-2 COVID-19 2020-12-24 Completed [facility] PFIZER VACCINE 00:00:00 [facility] [place] [facility] SARS-COV-2 COVID-19 2020-12-24 Completed [facility] PFIZER VACCINE 00:00:00 [facility] [place] [facility] SARS-COV-2 COVID-19 2020-12-24 Completed [facility] PFIZER VACCINE 00:00:00 [facility] [place] [facility] SARS-COV-2 COVID-19 2020-12-24 Completed [facility] PFIZER VACCINE 00:00:00 [facility] [place] [facility] SARS-COV-2 COVID-19 2020-12-24 Completed [facility] PFIZER VACCINE 00:00:00 [facility] [place] [facility] SARS-COV-2 COVID-19 2020-12-24 Completed [facility] PFIZER VACCINE 00:00:00 [facility] [place] [facility] SARS-COV-2 COVID-19 2020-12-24 Completed [facility] PFIZER VACCINE 00:00:00 [facility] [place] [facility] SARS-COV-2 COVID-19 2020-12-24 Completed [facility] PFIZER VACCINE 00:00:00 [facility] [place] [facility] SARS-COV-2 COVID-19 2020-12-24 Completed [facility] PFIZER VACCINE 00:00:00 [facility] [place] [facility] SARS-COV-2 COVID-19 2020-12-24 Completed [facility] PFIZER VACCINE 00:00:00 [facility] [place] [facility] SARS-COV-2 COVID-19 2020-12-24 Completed [facility] PFIZER VACCINE 00:00:00 [facility] [place] [facility] SARS-COV-2 COVID-19 2020-12-24 Completed [facility] PFIZER VACCINE 00:00:00 [facility] [place] [facility] SARS-COV-2 COVID-19 2020-12-24 Completed [facility] PFIZER VACCINE 00:00:00 [facility] [place] [facility] SARS-COV-2 COVID-19 2020-12-24 Completed [facility] PFIZER VACCINE 00:00:00 [facility] [place] [facility] SARS-COV-2 COVID-19 2020-12-24 Completed [facility] PFIZER VACCINE 00:00:00 [facility] [place] [facility] SARS-COV-2 COVID-19 2020-12-24 Completed [facility] PFIZER VACCINE 00:00:00 [facility] [place] [facility] SARS-COV-2 COVID-19 2020-12-03 Completed [facility] PFIZER VACCINE 00:00:00 [facility] SARS-COV-2 COVID-19 2020-12-03 Completed [facility] PFIZER VACCINE 00:00:00 [facility] [place] [facility] SARS-COV-2 COVID-19 2020-12-03 Completed [facility] PFIZER VACCINE 00:00:00 [facility] [place] [facility] SARS-COV-2 COVID-19 2020-12-03 Completed [facility] PFIZER VACCINE 00:00:00 [facility] [place] [facility] SARS-COV-2 COVID-19 2020-12-03 Completed [facility] PFIZER VACCINE 00:00:00 [facility] SARS-COV-2 COVID-19 2020-12-03 Completed [facility] PFIZER VACCINE 00:00:00 [facility] SARS-COV-2 COVID-19 2020-12-03 Completed [facility] PFIZER VACCINE 00:00:00 [facility] [place] [facility] SARS-COV-2 COVID-19 2020-12-03 Completed [facility] of PFIZER VACCINE 00:00:00 [facility] [place] [facility] SARS-COV-2 COVID-19 2020-12-03 Completed [facility] PFIZER VACCINE 00:00:00 [facility] [place] [facility] SARS-COV-2 COVID-19 2020-12-03 Completed [facility] PFIZER VACCINE 00:00:00 [facility] [place] [facility] SARS-COV-2 COVID-19 2020-12-03 Completed [facility] PFIZER VACCINE 00:00:00 [facility] [place] [facility] SARS-COV-2 COVID-19 2020-12-03 Completed [facility] PFIZER VACCINE 00:00:00 [facility] [place] [facility] SARS-COV-2 COVID-19 2020-12-03 Completed [facility] PFIZER VACCINE 00:00:00 [facility] [place] [facility] SARS-COV-2 COVID-19 2020-12-03 Completed [facility] PFIZER VACCINE 00:00:00 [facility] [place] [facility] SARS-COV-2 COVID-19 2020-12-03 Completed [facility] PFIZER VACCINE 00:00:00 [facility] [place] [facility] SARS-COV-2 COVID-19 2020-12-03 Completed [facility] PFIZER VACCINE 00:00:00 [facility] [place] [facility] SARS-COV-2 COVID-19 2020-12-03 Completed [facility] PFIZER VACCINE 00:00:00 [facility] [place] [facility] SARS-COV-2 COVID-19 2020-12-03 Completed [facility] of PFIZER VACCINE 00:00:00 [facility] [place] [facility] SARS-COV-2 COVID-19 2020-12-03 Completed [facility] of PFIZER VACCINE 00:00:00 [facility] [place] [facility] SARS-COV-2 COVID-19 2020-12-03 Completed [facility] PFIZER VACCINE 00:00:00 [facility] [place] [facility] SARS-COV-2 COVID-19 2020-12-03 Completed [facility] PFIZER VACCINE 00:00:00 [facility] SARS-COV-2 COVID-19 2020-12-03 Completed [facility] of PFIZER VACCINE 00:00:00 [facility] [place] [facility] SARS-COV-2 COVID-19 2020-12-03 Completed [facility] PFIZER VACCINE 00:00:00 [facility] [place] [facility] SARS-COV-2 COVID-19 2020-12-03 Completed [facility] PFIZER VACCINE 00:00:00 [facility] [place] [facility] SARS-COV-2 COVID-19 2020-12-03 Completed [facility] of PFIZER VACCINE 00:00:00 [facility] [place] [facility] SARS-COV-2 COVID-19 2020-12-03 Completed [facility] PFIZER VACCINE 00:00:00 [facility] [place] [facility] SARS-COV-2 COVID-19 2020-12-03 Completed [facility] PFIZER VACCINE 00:00:00 [facility] [place] [facility] SARS-COV-2 COVID-19 2020-12-03 Completed [facility] PFIZER VACCINE 00:00:00 [facility] [place] [facility] SARS-COV-2 COVID-19 2020-12-03 Completed [facility] of PFIZER VACCINE 00:00:00 [facility] [place] [facility] SARS-COV-2 COVID-19 2020-12-03 Completed [facility] of PFIZER VACCINE 00:00:00 [facility] [place] [facility] SARS-COV-2 COVID-19 2020-12-03 Completed [facility] of PFIZER VACCINE 00:00:00 [facility] [place] [facility] SARS-COV-2 COVID-19 2020-12-03 Completed [facility] PFIZER VACCINE 00:00:00 [facility] SARS-COV-2 COVID-19 2020-12-03 Completed [facility] of PFIZER VACCINE 00:00:00 [facility] [place] [facility] SARS-COV-2 COVID-19 2020-12-03 Completed [facility] of PFIZER VACCINE 00:00:00 [facility] [place] [facility] SARS-COV-2 COVID-19 2020-12-03 Completed [facility] of PFIZER VACCINE 00:00:00 [facility] [place] [facility] SARS-COV-2 COVID-19 2020-12-03 Completed [facility] PFIZER VACCINE 00:00:00 [facility] SARS-COV-2 COVID-19 2020-12-03 Completed [facility] of PFIZER VACCINE 00:00:00 [facility] SARS-COV-2 COVID-19 2020-12-03 Completed [facility] PFIZER VACCINE 00:00:00 [place] [facility] SARS-COV-2 COVID-19 2020-12-03 Completed [facility] PFIZER VACCINE 00:00:00 [facility] [place] [facility] SARS-COV-2 COVID-19 2020-12-03 Completed [facility] of PFIZER VACCINE 00:00:00 [facility] [place] [facility] SARS-COV-2 COVID-19 2020-12-03 Completed [facility] PFIZER VACCINE 00:00:00 [facility] [place] [facility] SARS-COV-2 COVID-19 2020-12-03 Completed [facility] of PFIZER VACCINE 00:00:00 [facility] [place] [facility] SARS-COV-2 COVID-19 2020-12-03 Completed [facility] of PFIZER VACCINE 00:00:00 [facility] [place] [facility] SARS-COV-2 COVID-19 2020-12-03 Completed [facility] of PFIZER VACCINE 00:00:00 [facility] [place] [facility] SARS-COV-2 COVID-19 2020-12-03 Completed [facility] of PFIZER VACCINE 00:00:00 [facility] [place] [facility] SARS-COV-2 COVID-19 2020-12-03 Completed [facility] of PFIZER VACCINE 00:00:00 [facility] [place] [facility] SARS-COV-2 COVID-19 2020-12-03 Completed [facility] of PFIZER VACCINE 00:00:00 [facility] [place] [facility] SARS-COV-2 COVID-19 2020-12-03 Completed [facility] of PFIZER VACCINE 00:00:00 [facility] [place] [facility] SARS-COV-2 COVID-19 2020-12-03 Completed [facility] of PFIZER VACCINE 00:00:00 [facility] [place] [facility] SARS-COV-2 COVID-19 2020-12-03 Completed [facility] of PFIZER VACCINE 00:00:00 [facility] [place] [facility] SARS-COV-2 COVID-19 2020-12-03 Completed [facility] of PFIZER VACCINE 00:00:00 [facility] [place] [facility] SARS-COV-2 COVID-19 2020-12-03 Completed [facility] of PFIZER VACCINE 00:00:00 [facility] SARS-COV-2 COVID-19 2020-12-03 Completed [facility] of PFIZER VACCINE 00:00:00 [facility] [place] [facility] SARS-COV-2 COVID-19 2020-12-03 Completed [facility] PFIZER VACCINE 00:00:00 [facility] Influenza Virus 2019-07-05 Completed [facility] y of Vaccine Quad IM 3+ 00:00:00 [facility] Twinrix (hep a/hep 2019-07-05 Completed Univer [facility] of b) 00:00:00 [facility] Pneumococcal 2019-07-05 Completed [facility] o f Polysaccharide, 00:00:00 [place] [facility] PPSV23 (PNEUMOVAX) [facility] Influenza Virus 2019-07-05 Completed [facility] of Vaccine Quad IM 3+ 00:00:00 [facility] Twinrix (hep a/hep 2019-07-05 Completed [facility]iver [facility] of b) 00:00:00 [facility] Pneumococcal 2019-07-05 Completed University o f Polysaccharide, 00:00:00 [facility] ical PPSV23 (PNEUMOVAX) Branch Influenza Virus 2019-07-05 Completed [facility] y of Vaccine Quad IM 3+ 00:00:00 [facility] Twinrix (hep a/hep 2019-07-05 Completed Univer [facility]ity of b) 00:00:00 [facility] Pneumococcal 2019-07-05 Completed [facility] o f Polysaccharide, 00:00:00 [place] [facility] PPSV23 (PNEUMOVAX) [facility] Influenza Virus 2019-07-05 Completed [facility] of Vaccine Quad IM 3+ 00:00:00 [facility] Twinrix (hep a/hep 2019-07-05 Completed [facility]ity of b) 00:00:00 [facility] Pneumococcal 2019-07-05 Completed University o f Polysaccharide, 00:00:00 [facility] ical PPSV23 (PNEUMOVAX) Branch Influenza Virus 2019-07-05 Completed [facility] of Vaccine Quad IM 3+ 00:00:00 [facility] Twinrix (hep a/hep 2019-07-05 Completed Univer [facility]ity of b) 00:00:00 [facility] Pneumococcal 2019-07-05 Completed University o f Polysaccharide, 00:00:00 [facility] ical PPSV23 (PNEUMOVAX) Branch Influenza Virus 2019-07-05 Completed [facility] of Vaccine Quad IM 3+ 00:00:00 [facility] Twinrix (hep a/hep 2019-07-05 Completed Univer [facility]ity of b) 00:00:00 [facility] Pneumococcal 2019-07-05 Completed [facility] o f Polysaccharide, 00:00:00 [place] [facility] PPSV23 (PNEUMOVAX) [facility] Influenza Virus 2019-07-05 Completed [facility] of Vaccine Quad IM 3+ 00:00:00 [facility] Twinrix (hep a/hep 2019-07-05 Completed [facility]iver [facility]ity of b) 00:00:00 [facility] Pneumococcal 2019-07-05 Completed [facility] o f Polysaccharide, 00:00:00 [place] [facility] PPSV23 (PNEUMOVAX) [facility] Influenza Virus 2019-07-05 Completed [facility] of Vaccine Quad IM 3+ 00:00:00 [facility] Twinrix (hep a/hep 2019-07-05 Completed Univer [facility]ity of b) 00:00:00 [facility] Pneumococcal 2019-07-05 Completed [facility] o f Polysaccharide, 00:00:00 [place] [facility] PPSV23 (PNEUMOVAX) [facility] Influenza Virus 2019-07-05 Completed [facility] of Vaccine Quad IM 3+ 00:00:00 [facility] Twinrix (hep a/hep 2019-07-05 Completed Univer sity of b) 00:00:00 [facility] Pneumococcal 2019-07-05 Completed [facility] o f Polysaccharide, 00:00:00 [place] [facility] PPSV23 (PNEUMOVAX) [facility] Influenza Virus 2019-07-05 Completed [facility] of Vaccine Quad IM 3+ 00:00:00 [facility] Twinrix (hep a/hep 2019-07-05 Completed Univer [facility]ity of b) 00:00:00 [facility] Pneumococcal 2019-07-05 Completed [facility] o f Polysaccharide, 00:00:00 [place] [facility] PPSV23 (PNEUMOVAX) [facility] Influenza Virus 2019-07-05 Completed [facility] of Vaccine Quad IM 3+ 00:00:00 [facility] Twinrix (hep a/hep 2019-07-05 Completed [facility]iver [facility]ity of b) 00:00:00 [facility] Pneumococcal 2019-07-05 Completed [facility] o f Polysaccharide, 00:00:00 [place] [facility] PPSV23 (PNEUMOVAX) [facility] Influenza Virus 2019-07-05 Completed [facility] of Vaccine Quad IM 3+ 00:00:00 [facility] Twinrix (hep a/hep 2019-07-05 Completed Univer [facility]ity of b) 00:00:00 [facility] Pneumococcal 2019-07-05 Completed [facility] o f Polysaccharide, 00:00:00 [place] [facility] PPSV23 (PNEUMOVAX) [facility] Influenza Virus 2019-07-05 Completed [facility] of Vaccine Quad IM 3+ 00:00:00 [facility] Twinrix (hep a/hep 2019-07-05 Completed [facility]iver [facility]ity of b) 00:00:00 [facility] Pneumococcal 2019-07-05 Completed [facility] o f Polysaccharide, 00:00:00 [place] [facility] PPSV23 (PNEUMOVAX) [facility] Influenza Virus 2019-07-05 Completed [facility] of Vaccine Quad IM 3+ 00:00:00 [facility] Twinrix (hep a/hep 2019-07-05 Completed Univer [facility]ity of b) 00:00:00 [facility] Pneumococcal 2019-07-05 Completed [facility] o f Polysaccharide, 00:00:00 [place] [facility] PPSV23 (PNEUMOVAX) [facility] Influenza Virus 2019-07-05 Completed [facility] of Vaccine Quad IM 3+ 00:00:00 [facility] Twinrix (hep a/hep 2019-07-05 Completed [facility]iver [facility]ity of b) 00:00:00 [facility] Pneumococcal 2019-07-05 Completed [facility] o f Polysaccharide, 00:00:00 [place] [facility] PPSV23 (PNEUMOVAX) [facility] Influenza Virus 2019-07-05 Completed [facility] of Vaccine Quad IM 3+ 00:00:00 [facility] Twinrix (hep a/hep 2019-07-05 Completed [facility]iver [facility]ity of b) 00:00:00 [facility] Pneumococcal 2019-07-05 Completed [facility] o f Polysaccharide, 00:00:00 [place] [facility] PPSV23 (PNEUMOVAX) [facility] Influenza Virus 2019-07-05 Completed [facility] of Vaccine Quad IM 3+ 00:00:00 [facility] Twinrix (hep a/hep 2019-07-05 Completed Univer [facility]ity of b) 00:00:00 [facility] Pneumococcal 2019-07-05 Completed [facility] o f Polysaccharide, 00:00:00 [place] [facility] PPSV23 (PNEUMOVAX) [facility] Influenza Virus 2019-07-05 Completed [facility] of Vaccine Quad IM 3+ 00:00:00 [facility] Twinrix (hep a/hep 2019-07-05 Completed [facility]iver [facility]ity of b) 00:00:00 [facility] Pneumococcal 2019-07-05 Completed [facility] o f Polysaccharide, 00:00:00 [place] [facility] PPSV23 (PNEUMOVAX) [facility] Influenza Virus 2019-07-05 Completed [facility] of Vaccine Quad IM 3+ 00:00:00 [facility] Twinrix (hep a/hep 2019-07-05 Completed Univer [facility]ity of b) 00:00:00 [facility] Pneumococcal 2019-07-05 Completed [facility] o f Polysaccharide, 00:00:00 [place] [facility] PPSV23 (PNEUMOVAX) [facility] Influenza Virus 2019-07-05 Completed [facility] of Vaccine Quad IM 3+ 00:00:00 [facility] Twinrix (hep a/hep 2019-07-05 Completed Univer sity of b) 00:00:00 [facility] Pneumococcal 2019-07-05 Completed [facility] o f Polysaccharide, 00:00:00 [place] [facility] PPSV23 (PNEUMOVAX) [facility] Influenza Virus 2019-07-05 Completed [facility] of Vaccine Quad IM 3+ 00:00:00 [facility] Twinrix (hep a/hep 2019-07-05 Completed Univer [facility]ity of b) 00:00:00 [facility] Pneumococcal 2019-07-05 Completed [facility] o f Polysaccharide, 00:00:00 [place] [facility] PPSV23 (PNEUMOVAX) [facility] Influenza Virus 2019-07-05 Completed [facility] of Vaccine Quad IM 3+ 00:00:00 [facility] Twinrix (hep a/hep 2019-07-05 Completed Univer [facility]ity of b) 00:00:00 [facility] Pneumococcal 2019-07-05 Completed [facility] o f Polysaccharide, 00:00:00 [place] [facility] PPSV23 (PNEUMOVAX) [facility] Influenza Virus 2019-07-05 Completed [facility] of Vaccine Quad IM 3+ 00:00:00 [facility] Twinrix (hep a/hep 2019-07-05 Completed Univer sity of b) 00:00:00 [facility] Pneumococcal 2019-07-05 Completed [facility] o f Polysaccharide, 00:00:00 [place] [facility] PPSV23 (PNEUMOVAX) [facility] Influenza Virus 2019-07-05 Completed [facility] of Vaccine Quad IM 3+ 00:00:00 [facility] Twinrix (hep a/hep 2019-07-05 Completed Univer sity of b) 00:00:00 [facility] Pneumococcal 2019-07-05 Completed University o f Polysaccharide, 00:00:00 [facility] ical PPSV23 (PNEUMOVAX) Branch Influenza Virus 2019-07-05 Completed [facility] of Vaccine Quad IM 3+ 00:00:00 [facility] Twinrix (hep a/hep 2019-07-05 Completed Univer sity of b) 00:00:00 [facility] Pneumococcal 2019-07-05 Completed [facility] o f Polysaccharide, 00:00:00 [place] [facility] PPSV23 (PNEUMOVAX) [facility] Influenza Virus 2019-07-05 Completed [facility] of Vaccine Quad IM 3+ 00:00:00 [facility] Twinrix (hep a/hep 2019-07-05 Completed Univer sity of b) 00:00:00 [facility] Pneumococcal 2019-07-05 Completed University o f Polysaccharide, 00:00:00 [place] [facility] PPSV23 (PNEUMOVAX) Branch Influenza Virus 2019-07-05 Completed Universit y of Vaccine Quad IM 3+ 00:00:00 [facility] Twinrix (hep a/hep 2019-07-05 Completed Univer sity of b) 00:00:00 [facility] Pneumococcal 2019-07-05 Completed University o f Polysaccharide, 00:00:00 [facility] ical PPSV23 (PNEUMOVAX) Branch Influenza Virus 2019-07-05 Completed Universit y of Vaccine Quad IM 3+ 00:00:00 [facility] Twinrix (hep a/hep 2019-07-05 Completed Univer sity of b) 00:00:00 [facility] Pneumococcal 2019-07-05 Completed University o f Polysaccharide, 00:00:00 [place] [facility] PPSV23 (PNEUMOVAX) Branch Influenza Virus 2019-07-05 Completed Universit y of Vaccine Quad IM 3+ 00:00:00 [facility] Twinrix (hep a/hep 2019-07-05 Completed Univer sity of b) 00:00:00 [facility] Pneumococcal 2019-07-05 Completed University o f Polysaccharide, 00:00:00 [place] [facility] PPSV23 (PNEUMOVAX) Branch Influenza Virus 2019-07-05 Completed Universit y of Vaccine Quad IM 3+ 00:00:00 [facility] Branch Twinrix (hep a/hep 2019-07-05 Completed Univer sity of b) 00:00:00 [facility] Pneumococcal 2019-07-05 Completed [facility] o f Polysaccharide, 00:00:00 [place] [facility] PPSV23 (PNEUMOVAX) Branch Influenza Virus 2019-07-05 Completed [facility]it y of Vaccine Quad IM 3+ 00:00:00 [facility] Twinrix (hep a/hep 2019-07-05 Completed Univer sity of b) 00:00:00 [facility] Pneumococcal 2019-07-05 Completed [facility] o f Polysaccharide, 00:00:00 [place] [facility] PPSV23 (PNEUMOVAX) Branch Influenza Virus 2019-07-05 Completed [facility]it y of Vaccine Quad IM 3+ 00:00:00 [facility] Twinrix (hep a/hep 2019-07-05 Completed Univer sity of b) 00:00:00 [facility] Pneumococcal 2019-07-05 Completed [facility] o f Polysaccharide, 00:00:00 [place] [facility] PPSV23 (PNEUMOVAX) Branch Influenza Virus 2019-07-05 Completed [facility]it y of Vaccine Quad IM 3+ 00:00:00 [facility] Twinrix (hep a/hep 2019-07-05 Completed Univer sity of b) 00:00:00 [facility] Pneumococcal 2019-07-05 Completed [facility] o f Polysaccharide, 00:00:00 [place] [facility] PPSV23 (PNEUMOVAX) Branch Influenza Virus 2019-07-05 Completed [facility]it [facility] of Vaccine Quad IM 3+ 00:00:00 [facility] Twinrix (hep a/hep 2019-07-05 Completed Univer sity of b) 00:00:00 [facility] Pneumococcal 2019-07-05 Completed [facility] o f Polysaccharide, 00:00:00 [place] [facility] PPSV23 (PNEUMOVAX) Branch Influenza Virus 2019-07-05 Completed [facility]it y of Vaccine Quad IM 3+ 00:00:00 [facility] Twinrix (hep a/hep 2019-07-05 Completed Univer sity of b) 00:00:00 [facility] Pneumococcal 2019-07-05 Completed [facility] o f Polysaccharide, 00:00:00 [place] [facility] PPSV23 (PNEUMOVAX) Branch Influenza Virus 2019-07-05 Completed [facility]it y of Vaccine Quad IM 3+ 00:00:00 [facility] Twinrix (hep a/hep 2019-07-05 Completed Univer sity of b) 00:00:00 [facility] Pneumococcal 2019-07-05 Completed [facility] o f Polysaccharide, 00:00:00 [place] [facility] PPSV23 (PNEUMOVAX) Branch Influenza Virus 2019-07-05 Completed [facility]it y of Vaccine Quad IM 3+ 00:00:00 [facility] Twinrix (hep a/hep 2019-07-05 Completed Univer sity of b) 00:00:00 [facility] Pneumococcal 2019-07-05 Completed [facility] o f Polysaccharide, 00:00:00 [place] [facility] PPSV23 (PNEUMOVAX) Branch Influenza Virus 2019-07-05 Completed [facility]it y of Vaccine Quad IM 3+ 00:00:00 [facility] Twinrix (hep a/hep 2019-07-05 Completed Univer sity of b) 00:00:00 [facility] Pneumococcal 2019-07-05 Completed [facility] o f Polysaccharide, 00:00:00 [place] [facility] PPSV23 (PNEUMOVAX) Branch Influenza Virus 2019-07-05 Completed [facility]it y of Vaccine Quad IM 3+ 00:00:00 [facility] Twinrix (hep a/hep 2019-07-05 Completed Univer sity of b) 00:00:00 [facility] Pneumococcal 2019-07-05 Completed [facility] o f Polysaccharide, 00:00:00 [place] [facility] PPSV23 (PNEUMOVAX) Branch Influenza Virus 2019-07-05 Completed [facility]it y of Vaccine Quad IM 3+ 00:00:00 [facility] Twinrix (hep a/hep 2019-07-05 Completed Univer sity of b) 00:00:00 [facility] Pneumococcal 2019-07-05 Completed [facility] o f Polysaccharide, 00:00:00 [place] [facility] PPSV23 (PNEUMOVAX) Branch Influenza Virus 2019-07-05 Completed [facility]it y of Vaccine Quad IM 3+ 00:00:00 [facility] Twinrix (hep a/hep 2019-07-05 Completed Univer sity of b) 00:00:00 [facility] Pneumococcal 2019-07-05 Completed [facility] o f Polysaccharide, 00:00:00 [place] [facility] PPSV23 (PNEUMOVAX) Branch Influenza Virus 2019-07-05 Completed [facility]it y of Vaccine Quad IM 3+ 00:00:00 [facility] Twinrix (hep a/hep 2019-07-05 Completed Univer sity of b) 00:00:00 [facility] Pneumococcal 2019-07-05 Completed [facility] o f Polysaccharide, 00:00:00 [place] [facility] PPSV23 (PNEUMOVAX) Branch Influenza Virus 2019-07-05 Completed [facility]it y of Vaccine Quad IM 3+ 00:00:00 [facility] Twinrix (hep a/hep 2019-07-05 Completed Univer sity of b) 00:00:00 [facility] Pneumococcal 2019-07-05 Completed [facility] o f Polysaccharide, 00:00:00 [place] [facility] PPSV23 (PNEUMOVAX) Branch Influenza Virus 2019-07-05 Completed [facility]it y of Vaccine Quad IM 3+ 00:00:00 [facility] Twinrix (hep a/hep 2019-07-05 Completed Univer sity of b) 00:00:00 [facility] Pneumococcal 2019-07-05 Completed [facility] o f Polysaccharide, 00:00:00 [place] [facility] PPSV23 (PNEUMOVAX) Branch Influenza Virus 2019-07-05 Completed [facility]it y of Vaccine Quad IM 3+ 00:00:00 [facility] Twinrix (hep a/hep 2019-07-05 Completed Univer sity of b) 00:00:00 [facility] Pneumococcal 2019-07-05 Completed [facility] o f Polysaccharide, 00:00:00 [place] [facility] PPSV23 (PNEUMOVAX) Branch Influenza Virus 2019-07-05 Completed [facility]it y of Vaccine Quad IM 3+ 00:00:00 [facility] Twinrix (hep a/hep 2019-07-05 Completed Univer sity of b) 00:00:00 [facility] Pneumococcal 2019-07-05 Completed [facility] o f Polysaccharide, 00:00:00 [place] [facility] PPSV23 (PNEUMOVAX) Branch Influenza Virus 2019-07-05 Completed [facility]it y of Vaccine Quad IM 3+ 00:00:00 [facility] Twinrix (hep a/hep 2019-07-05 Completed Univer sity of b) 00:00:00 [facility] Pneumococcal 2019-07-05 Completed [facility] o f Polysaccharide, 00:00:00 [place] [facility] PPSV23 (PNEUMOVAX) Branch Influenza Virus 2019-07-05 Completed [facility]it y of Vaccine Quad IM 3+ 00:00:00 [facility] Twinrix (hep a/hep 2019-07-05 Completed Univer sity of b) 00:00:00 [facility] Pneumococcal 2019-07-05 Completed [facility] o f Polysaccharide, 00:00:00 [place] [facility] PPSV23 (PNEUMOVAX) Branch Influenza Virus 2019-07-05 Completed [facility]it y of Vaccine Quad IM 3+ 00:00:00 [facility] Twinrix (hep a/hep 2019-07-05 Completed Univer sity of b) 00:00:00 [facility] Pneumococcal 2019-07-05 Completed [facility] o f Polysaccharide, 00:00:00 [place] [facility] PPSV23 (PNEUMOVAX) Branch Influenza Virus 2019-07-05 Completed [facility]it y of Vaccine Quad IM 3+ 00:00:00 [facility] Twinrix (hep a/hep 2019-07-05 Completed Univer sity of b) 00:00:00 [facility] Pneumococcal 2019-07-05 Completed University o f Polysaccharide, 00:00:00 [facility] ical PPSV23 (PNEUMOVAX) Branch Influenza Virus 2019-07-05 Completed Universit y of Vaccine Quad IM 3+ 00:00:00 [facility] Twinrix (hep a/hep 2019-07-05 Completed Univer sity of b) 00:00:00 [facility] Pneumococcal 2019-07-05 Completed [facility] o f Polysaccharide, 00:00:00 [place] [facility] PPSV23 (PNEUMOVAX) Branch Influenza Virus 2019-07-05 Completed [facility]it y of Vaccine Quad IM 3+ 00:00:00 [facility] Twinrix (hep a/hep 2019-07-05 Completed Univer sity of b) 00:00:00 [facility] Pneumococcal 2019-07-05 Completed University o f Polysaccharide, 00:00:00 [place] [facility] PPSV23 (PNEUMOVAX) Branch Influenza Virus 2019-07-05 Completed Universit y of Vaccine Quad IM 3+ 00:00:00 [facility] Twinrix (hep a/hep 2019-07-05 Completed Univer sity of b) 00:00:00 [facility] Pneumococcal 2019-07-05 Completed University o f Polysaccharide, 00:00:00 [facility] ical PPSV23 (PNEUMOVAX) Branch Influenza Virus 2019-07-05 Completed Universit y of Vaccine Quad IM 3+ 00:00:00 [facility] Branch Twinrix (hep a/hep 2019-07-05 Completed Univer sity of b) 00:00:00 [facility] Branch Pneumococcal 2019-07-05 Completed University o f Polysaccharide, 00:00:00 [facility] ical PPSV23 (PNEUMOVAX) Branch Pneumococcal 13 2019-03-29 Completed Universit y of Conjugate, PCV13 00:00:00 [place] [facility] (Prevnar 13) Branch Pneumococcal 13 2019-03-29 Completed Universit y of Conjugate, PCV13 00:00:00 [place] [facility] (Prevnar 13) Branch Pneumococcal 13 2019-03-29 Completed Universit y of Conjugate, PCV13 00:00:00 [place] [facility] (Prevnar 13) Branch Pneumococcal 13 2019-03-29 Completed [facility]it y of Conjugate, PCV13 00:00:00 [place] [facility] (Prevnar 13) Branch Pneumococcal 13 2019-03-29 Completed [facility]it y of Conjugate, PCV13 00:00:00 [place] [facility] (Prevnar 13) Branch Pneumococcal 13 2019-03-29 Completed [facility]it y of Conjugate, PCV13 00:00:00 [place] [facility] (Prevnar 13) Branch Pneumococcal 13 2019-03-29 Completed [facility]it y of Conjugate, PCV13 00:00:00 [place] [facility] (Prevnar 13) Branch Pneumococcal 13 2019-03-29 Completed [facility]it y of Conjugate, PCV13 00:00:00 [place] [facility] (Prevnar 13) Branch Pneumococcal 13 2019-03-29 Completed [facility]it y of Conjugate, PCV13 00:00:00 [place] [facility] (Prevnar 13) Branch Pneumococcal 13 2019-03-29 Completed [facility]it y of Conjugate, PCV13 00:00:00 [place] [facility] (Prevnar 13) Branch Pneumococcal 13 2019-03-29 Completed [facility]it y of Conjugate, PCV13 00:00:00 [place] [facility] (Prevnar 13) Branch Pneumococcal 13 2019-03-29 Completed [facility]it y of Conjugate, PCV13 00:00:00 [place] [facility] (Prevnar 13) Branch Pneumococcal 13 2019-03-29 Completed [facility]it y of Conjugate, PCV13 00:00:00 [place] [facility] (Prevnar 13) Branch Pneumococcal 13 2019-03-29 Completed [facility]it y of Conjugate, PCV13 00:00:00 [place] [facility] (Prevnar 13) Branch Pneumococcal 13 2019-03-29 Completed [facility]it y of Conjugate, PCV13 00:00:00 [place] [facility] (Prevnar 13) Branch Pneumococcal 13 2019-03-29 Completed [facility]it y of Conjugate, PCV13 00:00:00 [place] [facility] (Prevnar 13) Branch Pneumococcal 13 2019-03-29 Completed [facility]it y of Conjugate, PCV13 00:00:00 [place] [facility] (Prevnar 13) Branch Pneumococcal 13 2019-03-29 Completed [facility]it y of Conjugate, PCV13 00:00:00 [place] [facility] (Prevnar 13) Branch Pneumococcal 13 2019-03-29 Completed Universit y of Conjugate, PCV13 00:00:00 [place] [facility] (Prevnar 13) Branch Pneumococcal 13 2019-03-29 Completed [facility]it y of Conjugate, PCV13 00:00:00 [place] [facility] (Prevnar 13) Branch Pneumococcal 13 2019-03-29 Completed [facility]it y of Conjugate, PCV13 00:00:00 [place] [facility] (Prevnar 13) Branch Pneumococcal 13 2019-03-29 Completed [facility]it y of Conjugate, PCV13 00:00:00 [place] [facility] (Prevnar 13) Branch Pneumococcal 13 2019-03-29 Completed [facility]it y of Conjugate, PCV13 00:00:00 [place] [facility] (Prevnar 13) Branch Pneumococcal 13 2019-03-29 Completed Universit y of Conjugate, PCV13 00:00:00 [place] [facility] (Prevnar 13) Branch Pneumococcal 13 2019-03-29 Completed [facility]it y of Conjugate, PCV13 00:00:00 [place] [facility] (Prevnar 13) Branch Pneumococcal 13 2019-03-29 Completed [facility]it y of Conjugate, PCV13 00:00:00 [place] [facility] (Prevnar 13) Branch Pneumococcal 13 2019-03-29 Completed [facility]it y of Conjugate, PCV13 00:00:00 [place] [facility] (Prevnar 13) Branch Pneumococcal 13 2019-03-29 Completed [facility]it y of Conjugate, PCV13 00:00:00 [place] [facility] (Prevnar 13) Branch Pneumococcal 13 2019-03-29 Completed [facility]it y of Conjugate, PCV13 00:00:00 [place] [facility] (Prevnar 13) Branch Pneumococcal 13 2019-03-29 Completed [facility]it y of Conjugate, PCV13 00:00:00 [place] [facility] (Prevnar 13) Branch Pneumococcal 13 2019-03-29 Completed [facility]it y of Conjugate, PCV13 00:00:00 [place] [facility] (Prevnar 13) Branch Pneumococcal 13 2019-03-29 Completed [facility]it y of Conjugate, PCV13 00:00:00 [place] [facility] (Prevnar 13) Branch Pneumococcal 13 2019-03-29 Completed [facility]it y of Conjugate, PCV13 00:00:00 [place] [facility] (Prevnar 13) Branch Pneumococcal 13 2019-03-29 Completed [facility]it y of Conjugate, PCV13 00:00:00 [place] [facility] (Prevnar 13) Branch Pneumococcal 13 2019-03-29 Completed [facility]it y of Conjugate, PCV13 00:00:00 [place] [facility] (Prevnar 13) Branch Pneumococcal 13 2019-03-29 Completed [facility]it y of Conjugate, PCV13 00:00:00 [place] [facility] (Prevnar 13) Branch Pneumococcal 13 2019-03-29 Completed [facility]it y of Conjugate, PCV13 00:00:00 [place] [facility] (Prevnar 13) Branch Pneumococcal 13 2019-03-29 Completed [facility]it y of Conjugate, PCV13 00:00:00 [place] [facility] (Prevnar 13) Branch Pneumococcal 13 2019-03-29 Completed [facility]it y of Conjugate, PCV13 00:00:00 [place] [facility] (Prevnar 13) Branch Pneumococcal 13 2019-03-29 Completed [facility]it y of Conjugate, PCV13 00:00:00 [place] [facility] (Prevnar 13) Branch Pneumococcal 13 2019-03-29 Completed [facility]it y of Conjugate, PCV13 00:00:00 [place] [facility] (Prevnar 13) Branch Pneumococcal 13 2019-03-29 Completed [facility]it y of Conjugate, PCV13 00:00:00 [place] [facility] (Prevnar 13) Branch Pneumococcal 13 2019-03-29 Completed [facility]it y of Conjugate, PCV13 00:00:00 [place] [facility] (Prevnar 13) Branch Pneumococcal 13 2019-03-29 Completed [facility]it y of Conjugate, PCV13 00:00:00 [place] [facility] (Prevnar 13) Branch Pneumococcal 13 2019-03-29 Completed [facility]it y of Conjugate, PCV13 00:00:00 [place] [facility] (Prevnar 13) Branch Pneumococcal 13 2019-03-29 Completed [facility]it y of Conjugate, PCV13 00:00:00 [place] [facility] (Prevnar 13) Branch Pneumococcal 13 2019-03-29 Completed [facility]it y of Conjugate, PCV13 00:00:00 [place] [facility] (Prevnar 13) Branch Pneumococcal 13 2019-03-29 Completed [facility]it y of Conjugate, PCV13 00:00:00 [place] [facility] (Prevnar 13) Branch Pneumococcal 13 2019-03-29 Completed [facility]it y of Conjugate, PCV13 00:00:00 [place] [facility] (Prevnar 13) Branch Pneumococcal 13 2019-03-29 Completed [facility]it y of Conjugate, PCV13 00:00:00 [place] [facility] (Prevnar 13) Branch Pneumococcal 13 2019-03-29 Completed Universit y of Conjugate, PCV13 00:00:00 [facility] dical (Prevnar 13) Branch Pneumococcal 13 2019-03-29 Completed Universit y of Conjugate, PCV13 00:00:00 [facility] dical (Prevnar 13) Branch Pneumococcal 13 2019-03-29 Completed Universit y of Conjugate, PCV13 00:00:00 [place] [facility] (Prevnar 13) Branch Pneumococcal 13 2019-03-29 Completed Universit y of Conjugate, PCV13 00:00:00 [facility] dical (Prevnar 13) Branch Twinrix (hep a/hep 2018-11-16 Completed Univer sity of b) 00:00:00 [facility] Influenza Virus 2018-11-16 Completed Universit y of Vaccine Quad .5 mL 00:00:00 [facility] 6+ MO Branch Twinrix (hep a/hep 2018-11-16 Completed Univer sity of b) 00:00:00 [facility] Influenza Virus 2018-11-16 Completed Universit y of Vaccine Quad .5 mL 00:00:00 [facility] IM 6+ MO Branch Twinrix (hep a/hep 2018-11-16 Completed Univer sity of b) 00:00:00 [facility] Influenza Virus 2018-11-16 Completed Universit y of Vaccine Quad .5 mL 00:00:00 [facility] 6+ [place] Branch Twinrix (hep a/hep 2018-11-16 Completed Univer sity of b) 00:00:00 [facility] Influenza Virus 2018-11-16 Completed Universit y of Vaccine Quad .5 mL 00:00:00 [place] [facility] IM 6+ [place] [facility] Twinrix (hep a/hep 2018-11-16 Completed Univer sity of b) 00:00:00 [facility] Influenza Virus 2018-11-16 Completed [facility]it y of Vaccine Quad .5 mL 00:00:00 [place] [facility] IM 6+ [place] [facility] Twinrix (hep a/hep 2018-11-16 Completed Univer sity of b) 00:00:00 [facility] Influenza Virus 2018-11-16 Completed Universit y of Vaccine Quad .5 mL 00:00:00 [place] [facility] IM 6+ [place] Branch Twinrix (hep a/hep 2018-11-16 Completed Univer sity of b) 00:00:00 [facility] Influenza Virus 2018-11-16 Completed Universit y of Vaccine Quad .5 mL 00:00:00 [place] [facility] 6+ MO Branch Twinrix (hep a/hep 2018-11-16 Completed Univer sity of b) 00:00:00 [facility] Influenza Virus 2018-11-16 Completed [facility]it y of Vaccine Quad .5 mL 00:00:00 [place] [facility] 6+ MO Branch Twinrix (hep a/hep 2018-11-16 Completed Univer sity of b) 00:00:00 [facility] Influenza Virus 2018-11-16 Completed [facility]it y of Vaccine Quad .5 mL 00:00:00 [place] [facility] 6+ MO Branch Twinrix (hep a/hep 2018-11-16 Completed Univer sity of b) 00:00:00 [facility] Influenza Virus 2018-11-16 Completed [facility]it y of Vaccine Quad .5 mL 00:00:00 [place] [facility] IM 6+ [place] Branch Twinrix (hep a/hep 2018-11-16 Completed Univer sity of b) 00:00:00 [facility] Influenza Virus 2018-11-16 Completed [facility]it y of Vaccine Quad .5 mL 00:00:00 [place] [facility] IM 6+ [place] Branch Twinrix (hep a/hep 2018-11-16 Completed Univer sity of b) 00:00:00 [facility] Influenza Virus 2018-11-16 Completed [facility]it y of Vaccine Quad .5 mL 00:00:00 [place] [facility] IM 6+ [place] [facility] Twinrix (hep a/hep 2018-11-16 Completed Univer sity of b) 00:00:00 [facility] Influenza Virus 2018-11-16 Completed [facility]it y of Vaccine Quad .5 mL 00:00:00 [place] [facility] IM 6+ [place] [facility] Twinrix (hep a/hep 2018-11-16 Completed Univer sity of b) 00:00:00 [facility] Influenza Virus 2018-11-16 Completed [facility]it y of Vaccine Quad .5 mL 00:00:00 [place] [facility] IM 6+ [place] Branch Twinrix (hep a/hep 2018-11-16 Completed Univer sity of b) 00:00:00 [facility] Influenza Virus 2018-11-16 Completed [facility]it y of Vaccine Quad .5 mL 00:00:00 [place] [facility] 6+ MO Branch Twinrix (hep a/hep 2018-11-16 Completed Univer sity of b) 00:00:00 [facility] Influenza Virus 2018-11-16 Completed [facility]it y of Vaccine Quad .5 mL 00:00:00 [place] [facility] 6+ MO Branch Twinrix (hep a/hep 2018-11-16 Completed Univer sity of b) 00:00:00 [facility] Influenza Virus 2018-11-16 Completed [facility]it y of Vaccine Quad .5 mL 00:00:00 [place] [facility] 6+ MO Branch Twinrix (hep a/hep 2018-11-16 Completed Univer sity of b) 00:00:00 [facility] Influenza Virus 2018-11-16 Completed [facility]it y of Vaccine Quad .5 mL 00:00:00 [place] [facility] IM 6+ MO Branch Twinrix (hep a/hep 2018-11-16 Completed Univer sity of b) 00:00:00 [facility] Influenza Virus 2018-11-16 Completed [facility]it y of Vaccine Quad .5 mL 00:00:00 [facility] IM 6+ MO Branch Twinrix (hep a/hep 2018-11-16 Completed Univer sity of b) 00:00:00 [facility] Influenza Virus 2018-11-16 Completed [facility]it y of Vaccine Quad .5 mL 00:00:00 [place] [facility] IM 6+ [place] Branch Twinrix (hep a/hep 2018-11-16 Completed Univer sity of b) 00:00:00 [facility] Influenza Virus 2018-11-16 Completed [facility]it y of Vaccine Quad .5 mL 00:00:00 [place] [facility] IM 6+ MO Branch Twinrix (hep a/hep 2018-11-16 Completed Univer sity of b) 00:00:00 [facility] Influenza Virus 2018-11-16 Completed [facility]it y of Vaccine Quad .5 mL 00:00:00 [place] [facility] IM 6+ MO Branch Twinrix (hep a/hep 2018-11-16 Completed Univer sity of b) 00:00:00 [facility] Influenza Virus 2018-11-16 Completed [facility]it y of Vaccine Quad .5 mL 00:00:00 [facility] IM 6+ MO Branch Twinrix (hep a/hep 2018-11-16 Completed Univer sity of b) 00:00:00 [facility] Influenza Virus 2018-11-16 Completed [facility]it y of Vaccine Quad .5 mL 00:00:00 [facility] IM 6+ MO Branch Twinrix (hep a/hep 2018-11-16 Completed Univer sity of b) 00:00:00 [facility] Influenza Virus 2018-11-16 Completed [facility]it y of Vaccine Quad .5 mL 00:00:00 [facility] IM 6+ MO Branch Twinrix (hep a/hep 2018-11-16 Completed Univer sity of b) 00:00:00 [facility] Influenza Virus 2018-11-16 Completed [facility]it y of Vaccine Quad .5 mL 00:00:00 [facility] IM 6+ MO Branch Twinrix (hep a/hep 2018-11-16 Completed Univer sity of b) 00:00:00 [facility] Influenza Virus 2018-11-16 Completed [facility]it y of Vaccine Quad .5 mL 00:00:00 [facility] IM 6+ MO Branch Twinrix (hep a/hep 2018-11-16 Completed Univer sity of b) 00:00:00 [facility] Influenza Virus 2018-11-16 Completed [facility]it y of Vaccine Quad .5 mL 00:00:00 [place] [facility] 6+ MO Branch Twinrix (hep a/hep 2018-11-16 Completed Univer sity of b) 00:00:00 [facility] Influenza Virus 2018-11-16 Completed [facility]it y of Vaccine Quad .5 mL 00:00:00 [facility] IM 6+ MO Branch Twinrix (hep a/hep 2018-11-16 Completed Univer sity of b) 00:00:00 [facility] Influenza Virus 2018-11-16 Completed [facility]it y of Vaccine Quad .5 mL 00:00:00 [place] [facility] IM 6+ MO Branch Twinrix (hep a/hep 2018-11-16 Completed Univer sity of b) 00:00:00 [facility] Influenza Virus 2018-11-16 Completed [facility]it y of Vaccine Quad .5 mL 00:00:00 [facility] IM 6+ MO Branch Twinrix (hep a/hep 2018-11-16 Completed Univer sity of b) 00:00:00 [facility] Influenza Virus 2018-11-16 Completed [facility]it y of Vaccine Quad .5 mL 00:00:00 [facility] IM 6+ MO Branch Twinrix (hep a/hep 2018-11-16 Completed Univer sity of b) 00:00:00 [facility] Influenza Virus 2018-11-16 Completed [facility]it y of Vaccine Quad .5 mL 00:00:00 [facility] 6+ MO Branch Twinrix (hep a/hep 2018-11-16 Completed Univer sity of b) 00:00:00 [facility] Influenza Virus 2018-11-16 Completed [facility]it y of Vaccine Quad .5 mL 00:00:00 [facility] 6+ MO Branch Twinrix (hep a/hep 2018-11-16 Completed Univer sity of b) 00:00:00 [facility] Influenza Virus 2018-11-16 Completed [facility]it y of Vaccine Quad .5 mL 00:00:00 [facility] 6+ MO Branch Twinrix (hep a/hep 2018-11-16 Completed Univer sity of b) 00:00:00 [facility] Influenza Virus 2018-11-16 Completed [facility]it y of Vaccine Quad .5 mL 00:00:00 [facility] IM 6+ MO Branch Twinrix (hep a/hep 2018-11-16 Completed Univer sity of b) 00:00:00 [facility] Influenza Virus 2018-11-16 Completed [facility]it y of Vaccine Quad .5 mL 00:00:00 [facility] 6+ MO [facility] Twinrix (hep a/hep 2018-11-16 Completed Univer sity of b) 00:00:00 [facility] Influenza Virus 2018-11-16 Completed Universit y of Vaccine Quad .5 mL 00:00:00 [facility] 6+ MO [facility] Twinrix (hep a/hep 2018-11-16 Completed Univer sity of b) 00:00:00 [facility] Influenza Virus 2018-11-16 Completed Universit y of Vaccine Quad .5 mL 00:00:00 [facility] 6+ MO [facility] Twinrix (hep a/hep 2018-11-16 Completed Univer sity of b) 00:00:00 [facility] Influenza Virus 2018-11-16 Completed Universit y of Vaccine Quad .5 mL 00:00:00 [facility] 6+ MO [facility] Twinrix (hep a/hep 2018-11-16 Completed Univer sity of b) 00:00:00 [facility] Influenza Virus 2018-11-16 Completed Universit y of Vaccine Quad .5 mL 00:00:00 [facility] 6+ MO Branch Twinrix (hep a/hep 2018-11-16 Completed Univer sity of b) 00:00:00 [facility] Influenza Virus 2018-11-16 Completed Universit y of Vaccine Quad .5 mL 00:00:00 [facility] 6+ MO Branch Twinrix (hep a/hep 2018-11-16 Completed Univer sity of b) 00:00:00 [facility] Influenza Virus 2018-11-16 Completed Universit y of Vaccine Quad .5 mL 00:00:00 [facility] 6+ MO Branch Twinrix (hep a/hep 2018-11-16 Completed Univer sity of b) 00:00:00 [facility] Influenza Virus 2018-11-16 Completed Universit y of Vaccine Quad .5 mL 00:00:00 [facility] 6+ MO Branch Twinrix (hep a/hep 2018-11-16 Completed Univer sity of b) 00:00:00 [facility] Influenza Virus 2018-11-16 Completed Universit y of Vaccine Quad .5 mL 00:00:00 [facility] 6+ MO [facility] Twinrix (hep a/hep 2018-11-16 Completed Univer sity of b) 00:00:00 [facility] Influenza Virus 2018-11-16 Completed Universit y of Vaccine Quad .5 mL 00:00:00 [facility] 6+ MO [facility] Twinrix (hep a/hep 2018-11-16 Completed Univer sity of b) 00:00:00 [facility] Influenza Virus 2018-11-16 Completed Universit y of Vaccine Quad .5 mL 00:00:00 [facility] 6+ MO [facility] Twinrix (hep a/hep 2018-11-16 Completed Univer sity of b) 00:00:00 [facility] Influenza Virus 2018-11-16 Completed Universit y of Vaccine Quad .5 mL 00:00:00 [facility] 6+ MO [facility] Twinrix (hep a/hep 2018-11-16 Completed Univer sity of b) 00:00:00 [facility] Influenza Virus 2018-11-16 Completed Universit y of Vaccine Quad .5 mL 00:00:00 [facility] 6+ MO [facility] Twinrix (hep a/hep 2018-11-16 Completed Univer sity of b) 00:00:00 [facility] Influenza Virus 2018-11-16 Completed Universit y of Vaccine Quad .5 mL 00:00:00 [facility] 6+ MO Branch Twinrix (hep a/hep 2018-11-16 Completed Univer sity of b) 00:00:00 [facility] Influenza Virus 2018-11-16 Completed Universit y of Vaccine Quad .5 mL 00:00:00 [facility] 6+ MO Branch Twinrix (hep a/hep 2018-11-16 Completed Univer sity of b) 00:00:00 [facility] Influenza Virus 2018-11-16 Completed Universit y of Vaccine Quad .5 mL 00:00:00 [facility] 6+ MO Branch Twinrix (hep a/hep 2018-11-16 Completed Univer sity of b) 00:00:00 [facility] Influenza Virus 2018-11-16 Completed Universit y of Vaccine Quad .5 mL 00:00:00 [facility] 6+ MO Branch Twinrix (hep a/hep 2018-11-16 Completed Univer sity of b) 00:00:00 [facility] Influenza Virus 2018-11-16 Completed Universit y of Vaccine Quad .5 mL 00:00:00 [facility] 6+ MO Branch (FLUZONE/FLULAVAL/F LUARIX) Twinrix (hep a/hep 2018-09-21 Completed Univer sity of b) 00:00:00 [facility] TDAP 2018-09-21 Completed University of 00:00:00 [facility] Twinrix (hep a/hep 2018-09-21 Completed Univer sity of b) 00:00:00 [facility] TDAP 2018-09-21 Completed University of 00:00:00 [facility] Twinrix (hep a/hep 2018-09-21 Completed Univer sity of b) 00:00:00 [facility] TDAP 2018-09-21 Completed University of 00:00:00 [facility] Twinrix (hep a/hep 2018-09-21 Completed Univer sity of b) 00:00:00 [facility] TDAP 2018-09-21 Completed University of 00:00:00 [facility] Twinrix (hep a/hep 2018-09-21 Completed Univer sity of b) 00:00:00 [facility] TDAP 2018-09-21 Completed University of 00:00:00 [facility] Twinrix (hep a/hep 2018-09-21 Completed Univer sity of b) 00:00:00 [facility] TDAP 2018-09-21 Completed University of 00:00:00 [facility] Twinrix (hep a/hep 2018-09-21 Completed Univer sity of b) 00:00:00 [facility] TDAP 2018-09-21 Completed University of 00:00:00 [facility] Twinrix (hep a/hep 2018-09-21 Completed Univer sity of b) 00:00:00 [facility] TDAP 2018-09-21 Completed University of 00:00:00 [facility] Twinrix (hep a/hep 2018-09-21 Completed Univer sity of b) 00:00:00 [facility] TDAP 2018-09-21 Completed University of 00:00:00 [facility] Twinrix (hep a/hep 2018-09-21 Completed Univer sity of b) 00:00:00 [facility] TDAP 2018-09-21 Completed University of 00:00:00 [facility] Twinrix (hep a/hep 2018-09-21 Completed Univer sity of b) 00:00:00 [facility] TDAP 2018-09-21 Completed University of 00:00:00 [facility] Twinrix (hep a/hep 2018-09-21 Completed Univer sity of b) 00:00:00 [facility] TDAP 2018-09-21 Completed University of 00:00:00 [facility] Twinrix (hep a/hep 2018-09-21 Completed Univer sity of b) 00:00:00 [facility] TDAP 2018-09-21 Completed University of 00:00:00 [facility] Twinrix (hep a/hep 2018-09-21 Completed Univer sity of b) 00:00:00 [facility] TDAP 2018-09-21 Completed University of 00:00:00 [facility] Twinrix (hep a/hep 2018-09-21 Completed Univer sity of b) 00:00:00 [facility] TDAP 2018-09-21 Completed University of 00:00:00 [facility] Twinrix (hep a/hep 2018-09-21 Completed Univer sity of b) 00:00:00 [facility] TDAP 2018-09-21 Completed University of 00:00:00 [facility] Twinrix (hep a/hep 2018-09-21 Completed Univer sity of b) 00:00:00 [facility] TDAP 2018-09-21 Completed University of 00:00:00 [facility] Twinrix (hep a/hep 2018-09-21 Completed Univer sity of b) 00:00:00 [facility] TDAP 2018-09-21 Completed University of 00:00:00 [facility] Twinrix (hep a/hep 2018-09-21 Completed Univer sity of b) 00:00:00 [facility] TDAP 2018-09-21 Completed University of 00:00:00 [facility] Twinrix (hep a/hep 2018-09-21 Completed Univer sity of b) 00:00:00 [facility] TDAP 2018-09-21 Completed University of 00:00:00 [facility] Twinrix (hep a/hep 2018-09-21 Completed Univer sity of b) 00:00:00 [facility] TDAP 2018-09-21 Completed University of 00:00:00 [facility] Twinrix (hep a/hep 2018-09-21 Completed Univer sity of b) 00:00:00 [facility] TDAP 2018-09-21 Completed University of 00:00:00 [facility] Twinrix (hep a/hep 2018-09-21 Completed Univer sity of b) 00:00:00 [facility] TDAP 2018-09-21 Completed University of 00:00:00 [facility] Twinrix (hep a/hep 2018-09-21 Completed Univer sity of b) 00:00:00 [facility] TDAP 2018-09-21 Completed University of 00:00:00 [facility] Twinrix (hep a/hep 2018-09-21 Completed Univer sity of b) 00:00:00 [facility] TDAP 2018-09-21 Completed University of 00:00:00 [facility] Twinrix (hep a/hep 2018-09-21 Completed Univer sity of b) 00:00:00 [facility] TDAP 2018-09-21 Completed University of 00:00:00 [facility] Twinrix (hep a/hep 2018-09-21 Completed Univer sity of b) 00:00:00 [facility] TDAP 2018-09-21 Completed University of 00:00:00 [facility] Twinrix (hep a/hep 2018-09-21 Completed Univer sity of b) 00:00:00 [facility] TDAP 2018-09-21 Completed University of 00:00:00 [facility] Twinrix (hep a/hep 2018-09-21 Completed Univer sity of b) 00:00:00 [facility] TDAP 2018-09-21 Completed University of 00:00:00 [facility] Twinrix (hep a/hep 2018-09-21 Completed Univer sity of b) 00:00:00 [facility] TDAP 2018-09-21 Completed University of 00:00:00 [facility] Twinrix (hep a/hep 2018-09-21 Completed Univer sity of b) 00:00:00 [facility] TDAP 2018-09-21 Completed University of 00:00:00 [facility] Twinrix (hep a/hep 2018-09-21 Completed Univer sity of b) 00:00:00 [facility] TDAP 2018-09-21 Completed University of 00:00:00 [facility] Twinrix (hep a/hep 2018-09-21 Completed Univer sity of b) 00:00:00 [facility] TDAP 2018-09-21 Completed University of 00:00:00 [facility] Twinrix (hep a/hep 2018-09-21 Completed Univer sity of b) 00:00:00 [facility] TDAP 2018-09-21 Completed University of 00:00:00 [facility] Twinrix (hep a/hep 2018-09-21 Completed Univer sity of b) 00:00:00 [facility] TDAP 2018-09-21 Completed University of 00:00:00 [facility] Twinrix (hep a/hep 2018-09-21 Completed Univer sity of b) 00:00:00 [facility] TDAP 2018-09-21 Completed University of 00:00:00 [facility] Twinrix (hep a/hep 2018-09-21 Completed Univer sity of b) 00:00:00 [facility] TDAP 2018-09-21 Completed University of 00:00:00 [facility] Twinrix (hep a/hep 2018-09-21 Completed Univer sity of b) 00:00:00 [facility] TDAP 2018-09-21 Completed University of 00:00:00 [facility] Twinrix (hep a/hep 2018-09-21 Completed Univer sity of b) 00:00:00 [facility] TDAP 2018-09-21 Completed University of 00:00:00 [facility] Twinrix (hep a/hep 2018-09-21 Completed Univer sity of b) 00:00:00 [facility] TDAP 2018-09-21 Completed University of 00:00:00 [facility] Twinrix (hep a/hep 2018-09-21 Completed Univer sity of b) 00:00:00 [facility] TDAP 2018-09-21 Completed University of 00:00:00 [facility] Twinrix (hep a/hep 2018-09-21 Completed Univer sity of b) 00:00:00 [facility] TDAP 2018-09-21 Completed University of 00:00:00 [facility] Twinrix (hep a/hep 2018-09-21 Completed Univer sity of b) 00:00:00 [facility] TDAP 2018-09-21 Completed University of 00:00:00 [facility] Twinrix (hep a/hep 2018-09-21 Completed Univer sity of b) 00:00:00 [facility] TDAP 2018-09-21 Completed University of 00:00:00 [facility] Twinrix (hep a/hep 2018-09-21 Completed Univer sity of b) 00:00:00 [facility] TDAP 2018-09-21 Completed University of 00:00:00 [facility] Twinrix (hep a/hep 2018-09-21 Completed Univer sity of b) 00:00:00 [facility] TDAP 2018-09-21 Completed University of 00:00:00 [facility] Twinrix (hep a/hep 2018-09-21 Completed Univer sity of b) 00:00:00 [facility] TDAP 2018-09-21 Completed University of 00:00:00 [facility] Twinrix (hep a/hep 2018-09-21 Completed Univer sity of b) 00:00:00 [facility] TDAP 2018-09-21 Completed University of 00:00:00 [facility] Twinrix (hep a/hep 2018-09-21 Completed Univer sity of b) 00:00:00 [facility] TDAP 2018-09-21 Completed University of 00:00:00 [facility] Twinrix (hep a/hep 2018-09-21 Completed Univer sity of b) 00:00:00 [facility] TDAP 2018-09-21 Completed University of 00:00:00 [facility] Twinrix (hep a/hep 2018-09-21 Completed Univer sity of b) 00:00:00 [facility] TDAP 2018-09-21 Completed University of 00:00:00 [facility] Twinrix (hep a/hep 2018-09-21 Completed Univer sity of b) 00:00:00 [facility] TDAP 2018-09-21 Completed University of 00:00:00 [facility] Twinrix (hep a/hep 2018-09-21 Completed Univer sity of b) 00:00:00 [facility] TDAP 2018-09-21 Completed University of 00:00:00 [facility] Twinrix (hep a/hep 2018-09-21 Completed Univer sity of b) 00:00:00 [facility] TDAP 2018-09-21 Completed University of 00:00:00 [facility] Twinrix (hep a/hep Unknown Completed Univer sity of b) [facility] TDAP Unknown Completed University of [facility] Influenza Virus Unknown Completed Universit y of Vaccine Quad IM 3+ [facility] YRS Branch Twinrix (hep a/hep Unknown Completed Univer sity of b) [facility] Influenza Virus Unknown Completed Universit y of Vaccine Quad .5 mL [facility] 6+ MO Branch (FLUZONE/FLULAVAL/F LUARIX) Pneumococcal 13 Unknown Completed Universit y of Conjugate, PCV13 [facility] dical (Prevnar 13) Branch Twinrix (hep a/hep Unknown Completed Univer sity of b) [facility] Pneumococcal Unknown Completed University o f Polysaccharide, [facility] ical PPSV23 (PNEUMOVAX) Branch SARS-COV-2 COVID-19 Unknown Completed Unive rsity of PFIZER VACCINE [facility] Branch SARS-COV-2 COVID-19 Unknown Completed Unive rsity of PFIZER VACCINE [facility] SARS-COV-2 COVID-19 Unknown Completed Unive rsity of PFIZER VACCINE [facility] Influenza Virus Unknown Completed Universit y of Vaccine Quad IM, [facility] dical Preserv and ABX Branch Free 6 MO-64 YRS (FLUCELVAX) Twinrix (hep a/hep Unknown Completed Univer sity of b) [facility] TDAP Unknown Completed [facility] Influenza Virus Unknown Completed Universit y of Vaccine Quad IM 3+ [facility] Branch Twinrix (hep a/hep Unknown Completed Univer sity of b) [facility] Influenza Virus Unknown Completed Universit y of Vaccine Quad .5 mL [facility] 6+ MO Branch (FLUZONE/FLULAVAL/F LUARIX) Pneumococcal 13 Unknown Completed Universit y of Conjugate, PCV13 [facility] dical (Prevnar 13) Branch Twinrix (hep a/hep Unknown Completed Univer sity of b) [facility] Pneumococcal Unknown Completed University o f Polysaccharide, [facility] ical PPSV23 (PNEUMOVAX) Branch SARS-COV-2 COVID-19 Unknown Completed Unive rsity of PFIZER VACCINE [facility] Branch SARS-COV-2 COVID-19 Unknown Completed Unive rsity of PFIZER VACCINE [facility] SARS-COV-2 COVID-19 Unknown Completed Unive rsity of PFIZER VACCINE [facility] Influenza Virus Unknown Completed Universit y of Vaccine Quad IM, [facility] dical Preserv and ABX Branch Free 6 MO-64 YRS (FLUCELVAX) Vital Signs Vital Name Observation Time Observation Value Comments Source Systolic blood 2023-04-14 04:43:00 123 mm[Hg] Univer sity of pressure [facility] Diastolic blood 2023-04-14 04:43:00 79 mm[Hg] Unive rsity of pressure [facility] Heart rate 2023-04-14 04:43:00 68 /min Universi ty of [facility] Respiratory rate 2023-04-14 04:43:00 20 /min Univ ersity of [facility] Oxygen saturation in 2023-04-14 04:43:00 100 /min University of Arterial blood by [place] [employer] ethan Pulse oximetry Branch Body temperature 2023-04-14 02:11:00 37 Divya Univ ersity of [facility] Body height 2023-04-14 02:11:00 182.9 cm Universi ty of [facility] Body weight 2023-04-14 02:11:00 80.74 kg Universi [facility] of [facility] BMI 2023-04-14 02:11:00 24.14 kg/m2 [facility] Systolic blood 2023-03-11 16:22:00 110 mm[Hg] Univer sity of pressure [facility] Diastolic blood 2023-03-11 16:22:00 83 mm[Hg] Unive rsity of pressure [facility] Heart rate 2023-03-11 16:22:00 87 /min [facility]i ty of [facility] Body temperature 2023-03-11 16:22:00 36 Divya Univ ersity of [facility] Respiratory rate 2023-03-11 16:22:00 14 /min Univ ersity of [facility] Oxygen saturation in 2023-03-11 16:22:00 99 /min University of Arterial blood by [place] [employer] ethan Pulse oximetry Branch Body weight 2023-03-11 09:04:00 79.969 kg [facility]i [facility] of [facility] BMI 2023-03-11 09:04:00 23.91 kg/m2 [facility] Body height 2023-03-09 17:48:00 182.9 cm [facility]i [facility] of [facility] Systolic blood 2023-02-17 15:46:00 114 mm[Hg] Univer sity of pressure [facility] Diastolic blood 2023-02-17 15:46:00 74 mm[Hg] Unive rsity of pressure [facility] Heart rate 2023-02-17 15:46:00 87 /min [facility] Body temperature 2023-02-17 15:46:00 36.61 Divya Univ ersity of [facility] Respiratory rate 2023-02-17 15:46:00 18 /min Univ ersity of [facility] Body height 2023-02-17 15:46:00 182.9 cm [facility] Body weight 2023-02-17 15:46:00 82.328 kg [facility] BMI 2023-02-17 15:46:00 24.62 kg/m2 [facility] of [facility] Oxygen saturation in 2023-02-17 15:46:00 98 /min room air University of Arterial blood by [facility] Pulse oximetry Branch Systolic blood 2022-11-25 15:45:00 119 mm[Hg] Univer sity of pressure [facility] Diastolic blood 2022-11-25 15:45:00 77 mm[Hg] Unive rsity of pressure [facility] Heart rate 2022-11-25 15:45:00 94 /min [facility] Body temperature 2022-11-25 15:45:00 34.67 Divya Univ ersity of [facility] Respiratory rate 2022-11-25 15:45:00 18 /min Univ ersity of [facility] Body height 2022-11-25 15:45:00 182.9 cm [facility] Body weight 2022-11-25 15:45:00 83.915 kg [facility] BMI 2022-11-25 15:45:00 25.09 kg/m2 [facility] Oxygen saturation in 2022-11-25 15:45:00 98 /min University of Arterial blood by [place] [employer] [facility] Pulse oximetry Branch Systolic blood 2022-08-26 15:24:00 130 mm[Hg] Univer sity of pressure [facility] Diastolic blood 2022-08-26 15:24:00 82 mm[Hg] Unive rsity of pressure [facility] Heart rate 2022-08-26 15:24:00 85 /min [facility] Body temperature 2022-08-26 15:24:00 36.39 Divya Univ ersity of [facility] Respiratory rate 2022-08-26 15:24:00 18 /min Univ ersity of [facility] Body height 2022-08-26 15:24:00 182.9 cm Universi ty of [facility] Body weight 2022-08-26 15:24:00 84.596 kg Universi ty of [facility] BMI 2022-08-26 15:24:00 25.29 kg/m2 Universi ty of [facility] Systolic blood 2022-08-08 23:18:00 99 mm[Hg] Univer sity of pressure [facility] Diastolic blood 2022-08-08 23:18:00 79 mm[Hg] Unive rsity of pressure [facility] Heart rate 2022-08-08 23:18:00 95 /min Universi ty of [facility] Body temperature 2022-08-08 23:18:00 36.61 Divya [facility] ersity of [facility] Respiratory rate 2022-08-08 23:18:00 18 /min [facility] ersity of [facility] Body height 2022-08-08 23:18:00 182.9 cm [facility] [place] Body weight 2022-08-08 23:18:00 80.74 kg [facility]i ty of [facility] BMI 2022-08-08 23:18:00 24.14 kg/m2 Universi ty of [facility] Oxygen saturation in 2022-08-08 23:18:00 97 /min [facility] Arterial blood by [facility] Pulse oximetry Branch Body weight 2022-04-05 18:03:00 82.555 kg deferred Universi ty of [facility] BMI 2022-04-05 18:03:00 24.68 kg/m2 Universi ty of [facility] Body temperature 2022-03-29 16:53:00 36.22 Divya [facility] ersity of [facility] Body weight 2022-03-29 16:53:00 82.555 kg Universi ty of [facility] BMI 2022-03-29 16:53:00 24.68 kg/m2 Universi ty of [facility] Body weight 2022-03-22 18:56:00 82.781 kg Universi ty of [facility] BMI 2022-03-22 18:56:00 24.75 kg/m2 Universi ty of [facility] Procedures Procedure Date / Time Performed Performing Clinician Sourbyron e US GALL BLADDER 2023-04-14 04:57:02 Liseth Koehler [facility] URINALYSIS 2023-04-14 04:49:00 Liseth Koehler [facility] CT ABDOMEN PELVIS W 2023-04-14 03:20:00 [facility] LIPASE 2023-04-14 03:02:00 Liseth Koehler [facility] TROPONIN I 2023-04-14 03:02:00 Liseth Koe[facility] COMP. METABOLIC PANEL 2023-04-14 03:02:[address] [facility] ([id number]) [facility] CBC WITH DIFF 2023-04-14 03:02:00 Liseth Koehler [facility] N-TERMINAL PRO-BNP 2023-04-14 03:02:00 Liseth Koehler [facility] LACTIC ACID WHOLE 2023-04-14 03:02:00 Liseth Koehler [facility] BLOOD [facility] CONSENT/REFUSAL FOR 2023-04-14 02:06:04 Doctor Unassigned, No Un [facility] DIAGNOSIS AND Name [facility] TREATMENT BASIC METABOLIC PANEL 2023-03-11 09:36:00 Donna Solano [facility] (NA, K, CL, CO2, Medical Branch GLUCOSE, BUN, CREATININE, CA) CBC WITH DIFF 2023-03-11 09:36:00 Donna Solano [facility] VANCOMYCIN TROUGH 2023-03-11 02:17:00 Martha Hendricks [facility] CT HAND RIGHT W 2023-03-10 20:03:49 Donna Solano [facility] CONTRAST [facility] MAGNESIUM 2023-03-10 10:15:00 Meghana Russell [facility] BASIC METABOLIC PANEL 2023-03-10 10:15:00 Drew, [facility] (NA, K, CL, CO2, Medical Branch GLUCOSE, BUN, CREATININE, CA) CBC WITH DIFF 2023-03-10 10:15:00 Meghana Russell [facility] Branch MRSA / MSSA SCREEN BY 2023-03-09 22:13:00 Meghana Russell [facility] PCR, IRAES [facility] BLOOD CULTURE SCREEN 2023-03-09 14:39:00 Fabiola Cartagena [facility] Branch COMP. METABOLIC PANEL 2023-03-09 14:39:00 Fabiola Cartagena [place] [facility] ([id number]) Medical Branch CBC WITH DIFF 2023-03-09 14:39:00 Fabiola [place] [facility] NOTICE OF PRIVACY 2023-03-09 13:56:14 Doctor Unassigned, No [facility] PRACTICES Name Medical Branch CONSENT/REFUSAL FOR 2023-03-09 13:54:37 Doctor Unassigned, No [facility] DIAGNOSIS AND Name Medical Branch TREATMENT FLU VACC ([id number]), 2022-08-26 16:27:05 Barrie [facility] 6 MO-64 YRS, .5ML, IM, Medical B ranch QUAD (FLUCELVAX) SARS-COV-2 COVID-19 2022-08-26 16:27:05 Barrie [facility] JOHANA-SUCROSE VACCINE Medical Bra formerly [facility] 12 YRS+, BIVALENT 0.3ML, IM, (PFIZER ORTIZ TOP BOOSTER) LACTIC ACID WHOLE 2022-08-09 00:41:00 Singer [facility] BLOOD Medical Branch BLOOD CULTURE SCREEN 2022-08-09 00:40:00 Josse Yi [facility] COMP. METABOLIC PANEL 2022-08-09 00:40[id number] WITH DIFF 2022-08-09 00:40:00 Yi, [facility] CONSENT/REFUSAL FOR 2022-08-08 23:03:16 [facility], [facility] Name Medical [place] TREATMENT Encounters Start End Encounter Admission Attending Care Care Encounter Source Date/Time Date/Time Type Type Clinicians Facility Department ID 2022-06-10 Outpatient CHW W [id number] [place] 12:40:01 0216 [facility] Emergency [facility] [id number] Univers 10:29:04 ity of [facility] 2021-07-11 Emergency [facility] [id number] Univers 22:52:28 ity [facility] 2021-07-11 Emergency [facility] [id number] Univers 03:13:26 ity [facility] 2023-05-24 2023-05-24 Outpatient R RENETTA, [facility] [id number] Univers 08:30:00 08:30:00 ALANNA ity [facility] 2023-05-12 2023-05-12 Case GWEN Choudhary 1.2.118.681 [id number] Univers 00:00:00 00:00:00 Management Kenneth Soto [facility] 350.1.13.10 ity of [facility] 4.2.7.2.686 [facility] [id number] [address] 2023-04-13 2023-04-14 Emergency X ZAKIA [facility] ERT [id number] Univers 21:18:00 01:16:00 FOLUSHO ity [facility] 2023-04-13 2023-04-14 Emergency [facility] 1.2.840.114 10 [id number] Univers 21:18:00 01:16:00 Liseth DUNLAP 350.1.13.10 ity of [place] 4.2.7.2.686 [facility] [id number] [address] 2023-03-09 2023-03-11 Outpatient X DREW [facility] KIMO [id number] Univers 09:00:00 12:33:00 MEGHANA lozada [facility] 2023-03-09 2023-03-11 Emergency Fabiola Cart[place] [facility] 1.2.8 40.114 [id number] Univers 09:00:00 12:33:00 Meghana Russell 350.1.13.10 ity of [place] 4.2.7.2.686 [facility] [id number] [place] [address] [place] 2023-03-08 2023-03-08 Patient Doctor ELO 1.2.840.114 [id number] Univers 00:00:00 00:00:00 Secure Msg Unassigned, MISAEL 350.1.13.10 ity of [place] [facility] 4.2.7.2.686 Artem as [id number] [facility] 044 Branch 2023-02-17 2023-02-17 Office Bonnie Sood [facility] 1.2.840.11 4 [id number] Univers 10:30:00 11:00:00 Visit Meghana John HEALTH 350.1.13.10 ity of [place] 4[place] [id number] [place] [address] [place] 2023-02-17 2023-02-17 Outpatient R [facility] [id number] Univers 10:30:00 10:30:00 MEGHANA lozada [facility] 2023-02-17 2023-02-17 Outside Collector [facility] 1.2.840.114 1 [id number] Univers 09:30:00 09:45:00 Visit Meghana John [facility] 350.1.13.10 ity of [place] 4[place].2.[place] [id number] [facility] 316 Branch 2023-02-16 2023-02-16 Telephone GILLES Lorenzo 1.2.840.114 [id number] Univers 00:00:00 00:00:00 Renee L Y HEALTH 350.1.13.10 ity of [place] 4[place].2.[place] [id number] [facility] 089 [place] 2023-02-11 2023-02-[address] [facility] 1.2.840.114 10 [id number] Univers 00:00:00 00:00:00 Bonnie HEALTH 350.1.13.10 i ty of CL[place] 4[place].2.[place] [id number] [place] [address] [place] 2023-01-27 2023-01-27 Outpatient R [facility] [id number] Univers 10:00:00 10:00:00 ity of [facility] 2023-01-27 2023-01-27 Telephone GILLES SoodIT 1.2.840.114 10 [id number] Univers 00:00:00 00:00:00 Bonnie Y HEALTH 350.1.13.10 i ty of [place] [id number] [address] 2023-01-21 2023-01-21 Case Bj, [facility] 1.2.840.114 10 [id number] Univers 00:00:00 00:00:00 Management Renee L Y HEALTH 350.1.13.10 ity of [place] [id number] [address] 2023-01-13 2023-01-13 Case Kenrick, [facility] 1.2.622.215 [id number] Univers 00:00:00 00:00:00 Management Kenneth L Y HEALTH 350.1.13.10 ity of [place] [id number] [address] 2022-12-29 2022-12-29 Case Todd Rabago, [facility] 1.2.840.114 1 [id number] Univers 00:00:00 00:00:00 Management Lina R Y HEALTH 350.1.13.10 ity of [place] 4[place] [id number] [address] 2022-12-02 2022-12-02 Outpatient Elisabeth VICTOR [facility] [id number] Univers 10:15:00 10:15:00 INDIGO lozada [facility] 2022-11-25 2022-11-25 Office Bonnie Sood [facility] 1.2.840.11 4 [id number] Univers 10:00:00 10:30:00 Visit Meghana John Y HEALTH 350.1.13.10 ity [place] [id number] [address] 2022-11-25 2022-11-25 Outpatient R ADY [facility] [id number] Univers 10:00:00 10:00:00 MEGHANA lozada [facility] 2022-11-24 2022-11-24 Telephone Todd Rabago, [facility] 1.2.840.114 [id number] Univers 00:00:00 00:00:00 Lina Elisabeth Y HEALTH 350.1.13.10 ity of [place] [id number] [place] [address] [place] 2022-09-09 2022-09-09 Outpatient R JOHN [facility] [id number] Univers 13:29:08 23:59:00 MEGHANA ity [facility] 2022-09-09 2022-09-09 [facility] John, [facility] 1.2.840.114 [id number] Univers 13:29:08 23:59:00 Encounter Meghana Rox HEALTH 350.1.13.10 ity of [place] 4[place].2.[place] [id number] [facility] 801 [place] 2022-09-09 2022-09-09 Outside Collector [facility] 1.2.840.114 9 [id number] Univers 14:00:00 14:15:00 Visit Ady Meghana Soto HEALTH 350.1.13.10 ity of [place] 4[place] [id number] [facility] 316 Branch 2022-09-08 2022-09-08 Telephone GILLES John 1.2.840.114 9 [id number] Univers 00:00:00 00:00:00 Meghana Y HEALTH 350.1.13.10 i ty of [place] 4[place].2.[place] [id number] [place] [address] [place] 2022-08-31 2022-08-31 Patient GILLES JohnIT 1.2.840.114 [id number] Univers 00:00:00 00:00:00 Secure Msg Meghana Y HEALTH 350.1.13.10 ity of [place] 4[place].2.[place] [id number] [place] [address] [place] 2022-08-31 2022-08-31 Telephone GILLES John 1.2.840.114 9 [id number] Univers 00:00:00 00:00:00 Meghana Y HEALTH 350.1.13.10 i ty of [place] [id number] [address] 2022-08-27 2022-08-27 Patient John, [facility] 1.2.840.114 [id number] Univers 00:00:00 00:00:00 Secure Msrasheeda Soto HEALTH 350.1.13.10 ity of [place] 4[place] [id number] [address] 2022-08-26 2022-08-26 Office Bonnie Sood UNIVERS 1.2.840.11 4 [id number] Univers 09:30:00 10:00:00 Visit Meghana John HEALTH 350.1.13.10 ity of [place] 4[place] [id number] [address] 2022-08-26 2022-08-26 Outpatient R ADY [facility] [id number] Univers 09:30:00 09:30:00 [facility] 2022-08-19 2022-08-19 Outpatient R ADY [facility] [id number] Univers 09:00:00 09:00:00 [facility]NA [facility] 2022-08-18 2022-08-18 Case GILLES Lorenzo 1.2.840.114 [id number] Univers 00:00:00 00:00:00 Management [facility] 350.1.13.10 ity of [place] [id number] [address] 2022-08-17 2022-08-17 Outpatient R BRENDA [facility] [id number] Univers 13:00:00 13:00:00 [facility] 2022-08-17 2022-08-17 Patient Doctor ELO 1.2.840.114 [id number] Univers 00:00:00 00:00:00 Secure Msg Unassigned, MISAEL 350.1.13.10 ity of [place] [facility] 4.2.7.2.686 Artem as [id number] [address] 2022-08-17 2022-08-17 Patient Doctor [facility] 1.2.284.015 [id number] Univers 00:00:00 00:00:00 Secure Msg UnassRox billingsley HEALTH 350.1.13.10 ity of [place] 4[place] [id number] [address] 2022-08-16 2022-08-16 Case Georges, [facility] 1.2.971.286 [id number] Univers 00:00:00 00:00:00 Management Beatriz Soto HEALTH 350.1.13.10 ity of [place] 4[place] [id number] [address] 2022-08-16 2022-08-16 Telephone John [facility] 1.2.840.114 9 [id number] Univers 00:00:00 00:00:00 Meghana Soto HEALTH 350.1.13.10 i ty of [place] 4[place] [id number] [address] 2022-08-16 2022-08-16 Telephone Georges [facility] 1.2.840.114 [id number] Univers 00:00:00 00:00:00 Beatriz Soto HEALTH 350.1.13.10 i ty of [place] [id number] [address] 2022-08-16 2022-08-16 Patient Ady, [facility] 1.2.840.114 [id number] Univers 00:00:00 00:00:00 Secure Msg Meghana Soto HEALTH 350.1.13.10 ity of [place] [id number] [address] 2022-08-16 2022-08-16 Patient Ady, [facility] 1.2.840.114 [id number] Univers 00:00:00 00:00:00 Secure Msg Meghana Soto HEALTH 350.1.13.10 ity [place] [id number] [address] 2022-08-10 2022-08-10 Case Bj, [facility] 1.2.840.114 [id number] Univers 00:00:00 00:00:00 Management Renee L Y HEALTH 350.1.13.10 ity of [place] [id number] [address] 2022-08-09 2022-08-09 Telephone GWEN John 1.2.840.114 9 [id number] Univers 00:00:00 00:00:00 [facility] HEALTH 350.1.13.10 i ty of [place] [id number] [address] 2022-08-08 2022-08-08 Emergency X SINGER [facility] KIMO [id number] Univers 17:21:00 22:31:00 [facility] 2022-08-08 2022-08-08 Emergency Josse Yi [facility] 1.2.840. 114 [id number] Univers 17:21:00 22:31:00 Meghana Russell 350.1.13.10 ity [place].7.2.[place] [id number] [address] 2022-08-02 2022-08-02 Case GILLES Su 1.2.469.562 [id number] Univers 00:00:00 00:00:00 Management Beatriz L Y HEALTH 350.1.13.10 it[place] [id number] [address] 2022-07-08 2022-07-08 Telephone GWEN Lorenzo 1.2.840.114 [id number] Univers 00:00:00 00:00:00 Renee L Y HEALTH 350.1.13.10 it[place] [id number] [address] 2022-06-10 2022-06-10 Outpatient R ADY [facility] [id number] Univers 09:30:00 09:30:00 MEGHANA rox [facility] 2022-06-09 2022-06-09 Telephone GWEN Lorenzo 1.2.840.114 [id number] Univers 00:00:00 00:00:00 Renee L Y HEALTH 350.1.13.10 ity of [place] [id number] [address] 2022-05-20 2022-05-20 Outpatient R ADY [facility] [id number] Univers 10:00:00 10:00:00 [facility] 2022-05-20 2022-05-20 Outpatient R ADY [facility] [id number] Univers 10:00:00 10:00:00 [facility] 2022-05-20 2022-05-20 Outpatient R ADY [facility] [id number] Univers 10:00:00 10:00:00 [facility] 2022-05-20 2022-05-20 Case René, [facility] 1.2.840.114 [id number] Univers 00:00:00 00:00:00 Management Lina L Y HEALTH 350.1.13.10 ity [place] [id number] [address] 2022-05-20 2022-05-20 Telephone GILLES JohnIT 1.2.840.114 9 [id number] Univers 00:00:00 00:00:00 [facility] 350.1.13.10 i ty of [place] [id number] [address] 2022-05-19 2022-05-19 Telephone GILLES LorenzoIT 1.2.840.114 [id number] Univers 00:00:00 00:00:00 Renee L Y HEALTH 350.1.13.10 ity of [place] [id number] [address] 2022-04-05 2022-04-05 Outpatient Elisabeth ADY [facility] [id number] Univers 13:00:00 13:01:14 [facility] 2022-04-05 2022-04-05 Nurse Visit, [facility] Id Nurse UN[facility]ERS[facility] 1.2. 840.114 [id number] Univers 13:00:00 13:01:14 Visit Meghana John Rox HEALTH 350.1.13.10 it[place] [id number] [address] 2022-03-29 2022-03-29 Nurse Visit, [facility] Id Nurse UNIVERSIT 1.2. 840.114 [id number] Univers 13:00:00 13:15:00 Visit Sanjuana Hutchinson Y HEALTH 350.1.13.10 ity of [place] [id number] [address] 2022-03-29 2022-03-29 Outpatient R JASPER [facility] [id number] Univers 13:00:00 13:00:00 [facility] 2022-03-29 2022-03-29 Outpatient R JASPER [facility] [id number] Univers 13:00:00 13:00:[address] [facility] 2022-03-22 2022-03-22 Nurse Visit, [facility] Id Nurse UNIVERSIT 1.2. 840.114 [id number] Univers 13:00:00 13:15:00 Visit Meghana John Rox HEALTH 350.1.13.10 [place] [id number] [address] 2022-03-22 2022-03-22 Outpatient R ADY [facility] [id number] Univers 13:00:00 13:00:00 MEGHANA loazda [facility] 2022-02-17 2022-02-17 Nurse Visit, [facility] Id Nurse UNIVERSIT 1.2. 840.114 [id number] Univers 13:30:00 13:45:00 Visit Meghana John Rox HEALTH 350.1.13.10 ity [place] [id number] [address] 2022-02-17 2022-02-17 Outpatient R ADY [facility] [id number] Univers 13:30:00 13:30:00 MEGHANA lozada [facility] 2022-02-01 2022-02-01 Telephone GWEN John 1.2.840.114 9 [id number] Univers 00:00:00 00:00:00 Meghana HEALTH 350.1.13.10 i ty of [place] [id number] [place] [address] [place] 2022-01-29 2022-01-29 Case Gab [facility] 1.2.840.114 9 [id number] Univers 00:00:00 00:00:00 Management [facility] Y HEALTH 350.1.13.10 it[place] [id number] [address] 2022-01-14 2022-01-14 Outside Collector [facility]IVERSIT 1.2.840.114 9 [id number] Univers 12:45:00 13:00:00 Visit JohnMeghana HEALTH 350.1.13.10 ity of [place] 4[place]2.[place] [id number] [facility] [address] [place] 2022-01-14 2022-01-14 Office Ady [facility] 1.2.840.114 [id number] Univers 11:30:00 12:00:00 Visit Meghana HEALTH 350.1.13.10 i ty of [place] [id number] [address] 2022-01-14 2022-01-14 Outpatient R ADY [facility] [id number] Univers 11:30:00 11:30:00 MEGHANA mckeony [facility] 2022-01-14 2022-01-14 Outpatient R [facility] [id number] Univers 10:30:00 10:30:00 ity [facility] 2022-01-12 2022-01-12 Telephone Bj [facility] 1.2.840.114 [id number] Univers 00:00:00 00:00:00 Day [facility] Y HEALTH 350.1.13.10 it[place] [id number] [address] 2022-01-11 2022-01-11 Case Bj [facility] 1.2.840.114 [id number] Univers 00:00:00 00:00:00 Management Renee L Y HEALTH 350.1.13.10 ity of [place] [id number] [place] [address] [place] 2022-01-02 2022-01-03 Outpatient [facility] [id number] Univers 15:56:00 15:40:00 HELEN rox [facility] 2022-01-02 2022-01-03 Emergency Stanley Hernandez [facility] 1.2. 840.114 [id number] Univers 15:56:00 15:40:00 StevemilanHelen [place] 350.1.13.10 ity [facility] [place].2.[place] [id number] [address] 2021-12-26 2021-12-26 Nurse Nancy Andujar 1.2.840.114 [id number] Univers 00:00:00 00:00:00 Triage MISAEL 350.1.13.10 it y of HOSPITAL 4.2.7.2.686 Artem as [id number] [facility] 0[address] [place] 2021-10-15 2021-10-15 Outside Collector [facility] UN[facility]ERSIT 1.2.840.114 9 [id number] Univers 12:30:00 12:45:00 Visit Meghana John HEALTH 350.1.13.10 ity of [place] [id number] [facility] [address] 2021-10-15 2021-10-15 Outpatient R ADY [facility] [id number] Univers 12:30:00 12:30:00 MEGHANA lozada [facility] 2021-10-15 2021-10-15 Office Gregorio Hanna [facility] 1. 2.840.114 [id number] Univers 10:30:00 11:00:00 Visit Meghana John HEALTH 350.1.13.10 ity of [place] [id number] [place] [address] [place] 2021-10-15 2021-10-15 Outpatient R ADY [facility] [id number] Univers 10:30:00 10:30:00 MEGHANA itrox [facility] 2021-10-14 2021-10-14 Case Todd Rabago, [facility] 1.2.840.114 9 [id number] Univers 00:00:00 00:00:00 Management Lina R Y HEALTH 350.1.13.10 [place] [id number] [address] 2021-10-12 2021-10-12 Case Bj, [facility] 1.2.840.114 90 [id number] Univers 00:00:00 00:00:00 Management Renee L Y HEALTH 350.1.13.10 [place] [id number] [address] 2021-09-29 2021-09-29 Outpatient R RADHA, [facility] [id number] Univers 19:15:00 19:15:00 JORGE brown [facility] 2021-08-28 2021-08-28 Case Georges, [facility] 1.2.115.316 [id number] Univers 00:00:00 00:00:00 Management Beatriz L Y HEALTH 350.1.13.10 ity of [place] [id number] [address] 2021-08-19 2021-08-19 Case Georges, [facility] 1.2.765.436 [id number] Univers 00:00:00 00:00:00 Management Beatriz L Y HEALTH 350.1.13.10 ity of [place] [id number] [address] 2021-08-13 2021-08-13 Outpatient R JOHN, [facility] [id number] Univers 08:30:00 08:30:00 MEGHANA lozada [facility] 2021-08-12 2021-08-12 Case Todd Rabago, [facility] 1.2.840.114 [id number] Univers 00:00:00 00:00:00 Management Lina R Y HEALTH 350.1.13.10 ity of [place] [id number] [address] 2021-08-10 2021-08-10 Case Bj, [facility] 1.2.840.114 [id number] Univers 00:00:00 00:00:00 Management Renee L Y HEALTH 350.1.13.10 ity of [place] [id number] [address] 2021-08-06 2021-08-06 Emergency X [facility] [id number] Univers 21:37:00 23:38:00 REYES ity of [facility] 2021-08-06 2021-08-06 [facility] 1.2.747.697 [id number] Univers 21:37:00 23:38:00 Ciaramoisés Lamas [place] 350.1.13.10 ity of [place] [id number] [address] 2021-08-05 2021-08-05 [facility] UN[facility]ERSIT 1.2.840.114 [id number] Univers 00:00:00 00:00:00 Perla, Y HEALTH 350.1.13.10 i ty of [facility] CLINICS [place] [id number] [address] 2021-07-27 2021-07-27 Case Georges, [facility] 1.2.609.727 [id number] Univers 00:00:00 00:00:00 Management Beatriz L Y HEALTH 350.1.13.10 ity of [place] [id number] [address] 2021-07-23 2021-07-23 Case Georges, [facility] 1.2.078.683 [id number] Univers 00:00:00 00:00:00 Management Beatriz L Y HEALTH 350.1.13.10 it[place] of [place] [id number] [address] 2021-06-17 2021-06-17 Betty ADAM [facility] [id number] Univers 13:40:00 13:39:00 ANTHONY ity [facility] 2021-06-17 2021-06-17 Imm/Inj Nurse, Tr Pob Immunization [facility] 1.2.840.114 [id number] Univers 13:38:48 13:39:00 Visit Alex Anthony Colby Dunlap 350.1.13 .10 ity of [place].[address] [facility] [id number] [place]ical [place]al [address] [facility] 2021-04-09 2021-04-09 Office [facility] 1. 2.840.114 [id number] Univers 10:36:18 11:06:18 Visit Meghana John [facility] 350.1.13.10 [place] [id number] [address] 2021-04-09 2021-04-09 Outpatient Elisabeth JOHN [facility] [id number] Univers 10:30:00 10:30:00 [facility] 2021-04-06 2021-04-06 Telephone [facility] 1.2.840.114 [id number] Univers 00:00:00 00:00:00 Perla HEALTH 350.1.13.10 i ty of [facility] [place] [id number] [address] 2021-04-03 2021-04-04 [facility] 1.2.605.478 [id number] Univers 22:34:00 01:29:00 Lorne Dunlap 350.1.13.10 i ty [place] [phone] [address] 2021-02-06 2021-02-06 David Su [facility] [id number] [id number] Univers 00:00:00 00:00:00 Management Beatriz Soto HEALTH 350.1.13.10 [place] [id number] [address] 2021-02-06 2021-02-06 David Su, [facility] 1.2.180.470 [id number] Univers 00:00:00 00:00:00 Management Beatriz L Y HEALTH 350.1.13.10 [place] [phone] [place] [id number] [place] 2021-02-05 2021-02-05 Outside Collector [facility] 1.2.840.114 [id number] Univers 10:56:43 11:14:30 Visit Meghana John Y HEALTH 350.1.13.10 ity [place] [phone] [place] [address] [place] 2021-02-05 2021-02-05 Outpatient Elisabeth IVRING [facility] [id number] Univers 10:30:00 10:30:00 PERLA ity of [facility] 2021-02-05 2021-02-05 Office Aristides [facility] 1.2.613.192 [id number] Univers 09:02:51 09:32:51 Visit Perla Y HEALTH 350.1.13.10 i ty of [facility] [place] [phone] [address] 2021-02-05 2021-02-05 GILLES CarcamoIT 1.2.876.372 [id number] Univers 00:00:00 00:00:00 Management Beatriz L Y HEALTH 350.1.13.10 [place] [id number] [address] 2021-02-03 2021-02-03 Telephone Carlos Alberto, [facility] 1.2.840.114 [id number] Univers 00:00:00 00:00:00 Molly Y HEALTH 350.1.13.10 [place] [id number] [address] 2021-01-29 2021-01-29 Telephone Carlos Alberto, [facility] 1.2.840.114 [id number] Univers 00:00:00 00:00:00 Molly Y HEALTH 350.1.13.10 [place] [id number] [address] 2021-01-20 2021-01-20 Case Gab, [facility] 1.2.840.114 [id number] Univers 00:00:00 00:00:00 Management Necdavidle Y HEALTH 350.1.13.10 [place] [id number] [address] 2021-01-13 2021-01-13 Refkashmir Cartwrightda [facility] 1.2.629.443 [id number] Univers 00:00:00 00:00:00 Perla, Y HEALTH 350.1.13.10 i ty of [place] [phone] [address] 2020-12-25 2020-12-25 Telephone Carlos Alberto [facility] 1.2.840.114 [id number] Univers 00:00:00 00:00:00 Molly Y HEALTH 350.1.13.10 [place] [phone] [address] 2020-12-24 2020-12-24 Outpatient Elisabeth FORTE [facility] [id number] Univers 16:20:00 14:53:02 [facility] 2020-12-03 2020-12-03 Outpatient Elisabeth ADAM [facility] [id number] Univers 12:10:00 11:58:19 [facility] 2020-12-02 2020-12-02 [facility] 1.2.840.114 [id number] Univers 00:00:00 00:00:00 [facility] 350.1.13.10 i ty of [facility] [place] [id number] [address] 2020-11-06 2020-11-06 Outside Collector [facility] UNIVERSIT 1.2.840.114 [id number] Univers 10:45:38 10:54:44 Visit John, Meghana Y HEALTH 350.1.13.10 it[place] [phone] [facility] [address] 2020-11-06 2020-11-06 Office Gregorio Hanna UNIVERSIT 1. 2.840.114 [id number] Univers 09:48:46 10:46:07 Visit Meghana John HEALTH 350.1.13.10 [place] [phone] [place] [address] [place] 2020-11-06 2020-11-06 Outpatient R ADY, [facility] [id number] Univers 10:00:00 10:00:00 MEGHANA ity [facility] 2020-11-06 2020-11-06 Case Todd Rabago, UNIVERSIT 1.2.840.114 [id number] Univers 00:00:00 00:00:00 Management Lina R Y HEALTH 350.1.13.10 [place] [id number] [address] 2020-11-05 2020-11-05 Case Carlos Alberto, UNIVERSIT 1.2.347.134 [id number] Univers 00:00:00 00:00:00 Management Molly Y HEALTH 350.1.13.10 [place] [id number] [address] 2020-11-04 2020-11-04 David Merritt UNIVERSIT 1.2.840.114 [id number] Univers 00:00:00 00:00:00 Management Lina L Y HEALTH 350.1.13.10 [place] [phone] [address] 2020-10-27 2020-10-27 Outpatient R SAMIA, [facility] [id number] Univers 00:00:00 00:00:00 DECEMBER ity of [facility] 2020-10-22 2020-10-22 Emergency Osiel, TRAUMA 1.2.840.114 [id number] Univers 14:07:00 17:20:00 [facility] 350.1.13.10 i [place] [id number] [facility] [address] 2020-10-22 2020-10-22 Patient Brian UNIVERSIT 1.2.840.114 [id number] Univers 00:00:00 00:00:00 Secure Msg Nayla Y HEALTH 350.1.13.10 ity [place] [phone] [facility] [address] 2020-10-21 2020-10-[address] [facility] 1.2.840.114 [id number] Univers 00:00:00 00:00:00 Nayla Y HEALTH 350.1.13.10 i ty [place] [phone] [place] [address] [place] 2020-10-20 2020-10-20 Outpatient Elisabeth GRACIA, [facility] [id number] Univers 14:30:00 14:30:00 KATHRINE ity of [facility] 2020-09-30 2020-09-30 Case René, UNIVERSIT 1.2.840.114 [id number] Univers 00:00:00 00:00:00 Management Lina L Y HEALTH 350.1.13.10 ity [place] [id number] [place] [address] [place] 2020-09-18 2020-09-18 Darrel John, [facility] 1.2.840.114 [id number] Univers 00:00:00 00:00:00 Meghana Y HEALTH 350.1.13.10 i ty [place] [id number] [place] [address] [address] 2020-09-04 2020-09-04 Patient Zheng, [facility] 1.2.185.523 [id number] 00:00:00 00:00:00 Secure Msg Devonte Y HEALTH 350.1.13.10 CLINICS 4.2.7.2.686 [id number] 089 2020-09-04 2020-09-04 Patient Zheng, [facility] 1.2.005.829 [id number] Univers 00:00:00 00:00:00 Secure Msg Devonte Y HEALTH 350.1.13.10 ity [place] [id number] [address] 2020-08-31 2020-08-31 Patient Doctor ELO 1.2.840.114 [id number] Univers 00:00:00 00:00:00 Secure Msg Unassigned, MISAEL 350.1.13.10 ity of [facility] 4.2.7.2.686 Artem as [phone] [address] 2020-08-22 2020-08-22 Patient Irving UNIVERSIT 1.2.935.039 [id number] Univers 00:00:00 00:00:00 Secure Msg Perla, Y HEALTH 350.1.13.10 ity of [place] [phone] [address] 2020-08-22 2020-08-22 Telephone [place] UNIVERSIT 1.2.840.114 [id number] Univers 00:00:00 00:00:00 Perla, Y HEALTH 350.1.13.10 i ty of [place] [phone] [address] 2020-08-22 2020-08-22 Telephone [place] UNIVERSIT 1.2.840.114 [id number] Univers 00:00:00 00:00:00 Perla, Y HEALTH 350.1.13.10 i ty of [place] [id number] [address] 2020-08-21 2020-08-21 Office [place] UNIVERSIT 1.2.550.542 [id number] 10:54:20 11:58:50 Visit Perla, Y HEALTH 350.1.13.10 [place] CLINICS 4.2.7.2.686 [id number] [facility] 2020-08-21 2020-08-21 Office [place] UNIVERSIT 1.2.728.206 [id number] Univers 10:54:20 11:58:50 Visit Perla, Y HEALTH 350.1.13.10 i ty of [place] [phone] [address] 2020-08-21 2020-08-21 Outpatient R IRVING [facility] [id number] Univers 11:30:00 11:30:00 kierra DUNCAN of [facility] 2020-08-20 2020-08-20 Telephone Todd Rabago, UNIVERSIT 1.2.840.114 [id number] Univers 00:00:00 00:00:00 Lina R Y HEALTH 350.1.13.10 ity [place] [phone] [address] 2020-08-19 2020-08-19 Telephone [facility], [facility] 1.2.840.114 [id number] Univers 00:00:00 00:00:00 Devonte Y HEALTH 350.1.13.10 i ty [place] [id number] [address] 2020-07-30 2020-07-30 Case Dustin, [facility] 1.2.696.087 [id number] Univers 00:00:00 00:00:00 Management Dm Guillen Y HEALTH 350.1.13.10 ity [place] [id number] [address] 2020-07-16 2020-07-16 Emergency Edilma Lopez [facility] 1.2.840.114 [id number] Univers 18:24:00 21:35:00 Silvia Dunlap 350.1.13.10 i ty of [place] [phone] [address] 2020-07-15 2020-07-15 Telephone [facility] 1.2.840.114 [id number] Univers 00:00:00 00:00:00 Perla, Y HEALTH 350.1.13.10 i ty of [facility] [place]2.[place] [phone] [address] 2020-07-10 2020-07-11 Office IrvingGregorio Painting [facility] 1. 2.840.114 [id number] Univers 10:10:38 14:26:09 Visit Meghana John Y HEALTH 350.1.13.10 ity [place] [id number] [address] 2020-07-10 2020-07-10 Outside Collector [facility] UNIVERSIT 1.2.840.114 [id number] Univers 11:57:40 12:12:40 Visit Gregorio Hanna Y HEALTH 350.1.1 3.10 ity of [place] [id number] [address] 2020-07-10 2020-07-10 Outpatient R ADY [facility] [id number] Univers 10:30:00 10:30:00 MEGHANA ity of [facility] 2020-07-10 2020-07-10 Case Georges, [facility] 1.2.486.161 [id number] Univers 00:00:00 00:00:00 Management Beatriz L Y HEALTH 350.1.13.10 ity [place] [id number] [address] 2020-07-10 2020-07-10 Case Georges, [facility] 1.2.366.703 [id number] Univers 00:00:00 00:00:00 Management Beatriz L Y HEALTH 350.1.13.10 ity of [place] [id number] [address] 2020-07-09 2020-07-09 Case Todd Rabago, UNIVERSIT 1.2.840.114 [id number] Univers 00:00:00 00:00:00 Management Lina R Y HEALTH 350.1.13.10 ity of [place] [id number] [address] 2020-07-09 2020-07-09 Case Todd Rabago, UNIVERSIT 1.2.840.114 [id number] Univers 00:00:00 00:00:00 Management Lina R Y HEALTH 350.1.13.10 ity [place] [id number] [address] 2020-04-28 2020-04-28 [facility] Kami Beverly 1.2.840.114 [id number] Univers 06:12:39 23:59:00 [facility] 350.1.13.10 ity of Unit [place] [phone] [facility] [address] [place] 2020-02-26 2020-02-26 Telephone [facility] 1.2.840.114 [id number] Univers 00:00:00 00:00:00 Lina L Y HEALTH 350.1.13.10 ity [place] [id number] [address] 2020-02-15 2020-02-15 Telephone [facility] 1.2.840.114 [id number] Univers 00:00:00 00:00:00 Lina L Y HEALTH 350.1.13.10 ity [place] [id number] [address] 2020-01-30 2020-01-30 Letter [facility] 1.2.840.114 [id number] Univers 00:00:00 00:00:00 (Out) Lina L Y HEALTH 350.1.13.10 ity of [place] [id number] [address] 2020-01-16 2020-01-16 Telephone [facility] 1.2.840.114 [id number] Univers 00:00:00 00:00:00 Lina L Y HEALTH 350.1.13.10 ity of [place] [id number] [address] 2020-01-02 2020-01-02 Telephone [facility] 1.2.840.114 [id number] Univers 00:00:00 00:00:00 Lina L Y HEALTH 350.1.13.10 ity of [place] [id number] [address] 2019-12-12 2019-12-12 Telephone [facility] 1.2.840.114 [id number] Univers 00:00:00 00:00:00 Lina L Y HEALTH 350.1.13.10 ity of [place] [id number] [address] 2019-12-04 2019-12-04 Case René [facility] 1.2.840.114 [id number] Univers 00:00:00 00:00:00 Management Lina L Y HEALTH 350.1.13.10 ity of [place] [id number] [address] 2019-09-21 2019-09-21 Telephone Rj [facility] 1.2.840.114 [id number] Univers 00:00:00 00:00:00 Codey Y HEALTH 350.1.13.10 i ty of [place] [id number] [address] 2019-09-06 2019-09-06 Orders Doctor ELO 1.2.840.114 [id number] Univers 00:00:00 00:00:00 Only Unassigned, MISAEL 350.1.13.10 ity of [facility] 4.2.7.2.686 Artem as [id number] [address] 2019-05-22 2019-05-22 Case Georges, [facility] 1.2.609.060 [id number] Univers 00:00:00 00:00:00 Management Beatriz L Y HEALTH 350.1.13.10 ity of [place] [id number] [address] Results Test Description Test Time Test Comments Results Result Comments Source COMP. METABOLIC PANEL (80336) 2023-03-09 15:09:20 Test Item Value Reference Range Interpretation Comme nts NA (test code = 0744123225) 140 mmol/L 135-145 K (test code = 3289109727) 4.1 mmol/L 3.5-5.0 CL (test code = 0422762976) 107 mmol/L 98-108 CO2 TOTAL (test code = 5860921279) 22 mmol/L 23-31 L AGAP (test code = 0876086168) 11 2-16 BUN (test code = 4552083466) 15 mg/dL 7-23 GLUCOSE (test code = 8463628894) 107 mg/dL 70-110 CREATININE (test code = 0.94 mg/dL 0.60-1.25 8663267279) TOTAL BILI (test code = 0.6 mg/dL 0.1-1.1 6068496599) CALCIUM (test code = 0206661777) 8.9 mg/dL 8.6-10.6 T PROTEIN (test code = 1593143881) 7.0 g/dL 6.3-8.2 ALBUMIN (test code = 3053049992) 3.9 g/dL 3.5-5.0 ALK PHOS (test code = 2757469447) 96 U/L 34-122 ALTv (test code = 1742-6) 23 U/L 5-50 AST(SGOT) (test code = 5582797970) 24 U/L 13-40 eGFR (test code = 0122954274) 83.6 mL/min/1.73m2 IRA (test code = IRA) Association of Glomerular Filtration Rate (GFR) and Staging of Kidney Disease* + +-------- + ------+| GFR (mL/min/1.73 m2) ?| With Kidney Damage ?| ?Without Kidney Damage+ +-- + +| ?>90 ?| ?Stage one ?| ? Normal ?+ +------- + -------+| ?60-89 ?| ?Stage two ?| ? Decreased GFR ? + +-------- + ------+| ?30-59 ?| ?Stage three ?| ? Stage three ? + +-------- + ------+| ?15-29 ?| ?Stage four ? | ? Stage four ?+ +------- + -------+| ?<15 (or dialysis) ? ?| ?Stage five ? | ? Stage five ?+ +------- + -------+ *Each stage assumes the associated GFR level has been in effect for at least three months. ?Stages 1 to 5, with or without kidney disease, indicate chronic kidney disease. Notes: Determination of stages one and two (with eGFR >59mL/min/1.73 m2) requires estimation of kidney damage for at least three months as defined by structural or functional abnormalities of the kidney, manifested by either:Pathological abnormalities or Markers of kidney damage (including abnormalities in the composition of the blood or urine or abnormalities in imaging tests). Lab Interpretation (test code = Abnormal 20789-5) [facility] WITH [id number] 15:03:41 Test Item Value Reference Range Interpretation Comments WBC (test code = 7.64 See_Comment [Automated 6690-2) message] The sy stem which generated this result transmitted reference range : 4.20 - 10.70 10*3/?L. The reference range was not used to interpret this result as normal/abnormal . RBC (test code = 3.86 See_Comment L [Automated 789-8) message] The sy stem which generated this result transmitted reference range : 4.26 - 5.52 10*6/?L. The reference range was not used to interpret this result as normal/abnormal . HGB (test code = 11.5 g/dL 12.2-16.4 L 718-7) HCT (test code = 35.1 % 38.4-49.3 L 4544-3) MCV (test code = 90.9 fL 81.7-95.6 787-2) MCH (test code = 29.8 pg 26.1-32.7 785-6) MCHC (test code = 32.8 g/dL 31.2-35.0 786-4) RDW-SD (test code = 43.3 fL 38.5-51.6 37231-1) RDW-CV (test code = 13.1 % 12.1-15.4 788-0) PLT (test code = 206 See_Comment [Automated 777-3) message] The sy stem which generated this result transmitted reference range : 150 - 328 10*3/ ?L. The reference r jt was not used to interpret this result as normal/abnormal . MPV (test code = 8.6 fL 9.8-13.0 L 65919-8) NRBC/100 WBC (test 0.0 See_Comment [Automat ed code = 2687715238) message] The system which generated this result transmitted reference range : 0.0 - 10.0 /100 WBCs. The refer ence range was not u sed to interpret th is result as normal/abnormal . NRBC x10^3 (test code See_Comment [Auto mated = 8812316184) message] The s ystem which generated this result transmitted reference range : 10*3/?L. The reference range was not used to interpret this result as normal/abnormal . GRAN MAT (NEUT) % 65.4 % (test code = 770-8) IMM GRAN % (test code 0.40 % = 0769377254) LYMPH % (test code = 23.4 % 736-9) MONO % (test code = 9.7 % 5905-5) EOS % (test code = 0.8 % 713-8) BASO % (test code = 0.3 % 706-2) GRAN MAT x10^3(ANC) 5.00 10*3/uL 1.99-6.95 (test code = 2874654552) IMM GRAN x10^3 (test 0.03 10*3/uL 0.00-0.06 code = 4373284325) LYMPH x10^3 (test code 1.79 10*3/uL 1.09-3.23 = 731-0) MONO x10^3 (test code 0.74 10*3/uL 0.36-1.02 = 742-7) EOS x10^3 (test code = 0.06 10*3/uL 0.06-0.53 711-2) BASO x10^3 (test code 0.01-0.09 = 704-7) Lab Interpretation Abnormal (test code = 35257-4) [facility]67846[facility]-09 01:15:43 Test Item Value Reference Range Interpretation Comments NA (test code = 137 mmol/L 135-145 0787798164) K (test code = 3.9 mmol/L 3.5-5.0 8736307623) CL (test code = 104 mmol/L 98-108 5697778019) CO2 TOTAL (test code 26 mmol/L 23-31 = 3936169424) AGAP (test code = 2-16 6924809043) BUN (test code = 15 mg/dL 7-23 5358131273) GLUCOSE (test code = 97 mg/dL 70-110 4346287294) CREATININE (test code 0.97 mg/dL 0.60-1.25 = 6318323277) TOTAL BILI (test code 0.5 mg/dL 0.1-1.1 = 0657580468) CALCIUM (test code = 9.1 mg/dL 8.6-10.6 1042877202) T PROTEIN (test code 6.7 g/dL 6.3-8.2 = 2360277104) ALBUMIN (test code = 4.0 g/dL 3.5-5.0 9869338649) ALK PHOS (test code = 101 U/L 34-122 4652667216) ALTv (test code = 20 U/L 5-50 1742-6) AST(SGOT) (test code 22 U/L 13-40 = 3123585664) eGFR (test code = mL/min/1.73m2 0098655808) IRA (test code = IRA) Association of Glomerular Filtration Rate (GFR) and Staging of Kidney Disease* + + +- +| GFR (mL/min/1.73 m2) ?| With Kidney Damage ?| ?Without Kidney Damage+ ------+ ----+ ------+| ?>90 ?| ?Stage one ?| ? Normal ?+ -+ + -+| ?60-89 ?| ?Stage two ?| ? Decreased GFR ? + + +- +| ?30-59 ?| ?Stage three ?| ? Stage three ? + + +- +| ?15-29 ?| ?Stage four ? | ? Stage four ?+ -+ + -+| ?<15 (or dialysis) ? ?| ?Stage five ? | ? Stage five ?+ -+ + -+ *Each stage assumes the associated GFR level has been in effect for at least three months. ?Stages 1 to 5, with or without kidney disease, indicate chronic kidney disease. Notes: Determination of stages one and two (with eGFR >59mL/min/1.73 m2) requires estimation of kidney damage for at least three months as defined by structural or functional abnormalities of the kidney, manifested by either:Pathological abnormalities or Markers of kidney damage (including abnormalities in the composition of the blood or urine or abnormalities in imaging tests). [facility] WITH [id number] 01:01:40 Test Item Value Reference Range Interpretation Comments WBC (test code = See_Comment [Automated 6690-2) message] The sy stem which generated this result transmitted reference range : 4.20 - 10.70 10*3/?L. The reference range was not used to interpret this result as normal/abnormal . RBC (test code = See_Comment L [Automated 789-8) message] The sy stem which generated this result transmitted reference range : 4.26 - 5.52 10*6/?L. The reference range was not used to interpret this result as normal/abnormal . HGB (test code = 11.6 g/dL 12.2-16.4 L 718-7) HCT (test code = 34.8 % 38.4-49.3 L 4544-3) MCV (test code = 90.9 fL 81.7-95.6 787-2) MCH (test code = 30.3 pg 26.1-32.7 785-6) MCHC (test code = 33.3 g/dL 31.2-35.0 786-4) RDW-SD (test code = 40.3 fL 38.5-51.6 22835-1) RDW-CV (test code = 12.3 % 12.1-15.4 788-0) PLT (test code = See_Comment [Automated 777-3) message] The sy stem which generated this result transmitted reference range : 150 - 328 10*3/ ?L. The reference r jt was not used to interpret this result as normal/abnormal . MPV (test code = 8.9 fL 9.8-13.0 L 52355-1) NRBC/100 WBC (test See_Comment [Automat ed code = 9742919716) message] The system which generated this result transmitted reference range : 0.0 - 10.0 /100 WBCs. The refer ence range was not u sed to interpret th is result as normal/abnormal . NRBC x10^3 (test code See_Comment [Auto mated = 3522043610) message] The s ystem which generated this result transmitted reference range : 10*3/?L. The reference range was not used to interpret this result as normal/abnormal . GRAN MAT (NEUT) % 47.8 % (test code = 770-8) IMM GRAN % (test code 0.20 % = 9313765292) LYMPH % (test code = 32.7 % 736-9) MONO % (test code = 16.0 % 5905-5) EOS % (test code = 2.9 % 713-8) BASO % (test code = 0.4 % 706-2) GRAN MAT x10^3(ANC) 2.14 10*3/uL 1.99-6.95 (test code = 1982957002) IMM GRAN x10^3 (test 0.00-0.06 code = 3259181510) LYMPH x10^3 (test code 1.47 10*3/uL 1.09-3.23 = 731-0) MONO x10^3 (test code 0.72 10*3/uL 0.36-1.02 = 742-7) EOS x10^3 (test code = 0.13 10*3/uL 0.06-0.53 711-2) BASO x10^3 (test code 0.01-0.09 = 704-7) Lab Interpretation Abnormal (test code = 35556-7) [facility] [id number] 00:47:12 Test Item Value Reference Range Interpretation Comments LACTIC ACID (test code = 1.05 mmol/L 0.50-2.20 7225379655) Lab Interpretation (test code = Normal 48345-2) [facility] ([facility]), RT-PCR/[id number] 15:38:41 Test Item Value Reference Interpretation Comments Range SARS-CoV-2 NEGATIVE SEE NOTE SARS-CoV-2 RNA NOT INTERPRETATION DETECTEDNegat lala (test code = 33241) results do not preclude SARS-C oV-2 infection and s hould christine used as t he sole basis for patie nt management deci sions. Negativeresults must be combined wit h clinical observ ations, patient history ,and epidemiological information. Op timum specimen types and timingfor peak viral levels during infections caus ed by SARS-CoV-2 have christineen veneciai edwin. Collection of m ultiple specimens or ty pes ofspecimens may be necessary to de tect virus. Improper specimencollect ion and handling, seque nce variability und er primers/probes, or organism presen t below the limit of de tection may lead to falsenegative r esults. Positive and ne gative predictive valu es oftesting are h ighly dependent on prevalence. Fal se negative testre sults are more likely when prevalence is h igh. SOURCE (test code = NASOPHARYNGEAL Note: [place] [address]) Geronimo Jake Pratima l-Time RT-PCR. The exp ected result or refer ence range is NEGATI VE (Not Detected). For more information reg arding COVID-19 testin g to include clinicalinforma tion, methodology det ail, intended use, F DA authorization andrecommended fact sheets for veda ents or healthcare prov iders, see NewTest Announcement: SARS-CoV-2 (COV ID-19) by NAAT at URL below (note,fact shee ts are provided by met hod given in report:https:// www.[employer].com/clinic ians/cl ient-communicat ions/ Alternatively, see downloadable PD F fact sheet at:https://www. [employer]/COVID-19-R T-PCR UNLESS OTHERWIS E INDICATED, ALL TESTING PERFORMED [facility], [facility]. [address] [place] [id number] RIGOBERTO CONTRERAS DIRECTOR: SANJUANA BANEGAS M.D. CLIA NUMBER [id number] CAP ACCREDITATION N O. [id number]"
[2023-07-31] MEDS ORDERED: TAMSULOSIN 0.4 MG SR CAP ONE (16:33)
[2023-07-31] MEDS ORDERED: MORPHINE 4 MG/ML SYR ONE (16:33)
[2023-07-31] MEDS ORDERED: KETOROLAC 30 MG/ML INJ ONE (16:34)
[2023-07-31 16:49] LABS: Calcium Oxalate Crystals- Ur Moderate /HPF (None Seen); Specific Gravity > 1.030 (1.005-1.030); Urine Bacteria None Seen /HPF (<20); Urine Bilirubin NEGATIVE (Negative); Urine Blood 3+ (Negative); Urine Clarity Clear (Clear); Urine Color Yellow (Yellow); Urine Crystals Unidentified Few /HPF (None Seen); Urine Glucose NEGATIVE (Negative); Urine Protein TRACE (Negative); Urine RBC 21-50 /HPF (None Seen); Urine Urobilinogen Normal (Normal); Urine pH 5.5 (5.0-7.0)
--- NOTE | 2023-07-31 17:28 | RAD REPORT ---
EXAM DESCRIPTION: CT - Stone Protocol - 07/31/2023 5:17 pm CLINICAL HISTORY: Flank pain. FLANK PAIN COMPARISON: <Comparisons> TECHNIQUE: Axial images were obtained without oral or IV contrast. Lack of contrast limits solid org an and vascular assessment. The ezxvf-cf-vued spans the entirety of the system partially obscuring uppermost abdomen and lung bases. Coronal reformatted images were obtained and reviewed. All CT scans are performed using dose optimization technique as appropriate and may include automated exposure control or mA/KV adjustment according to patient size. FINDINGS: The lower lung thomas are clear. Imaged portions of the liver and spleen show no suspicious findings on non-contrast imaging. The panc reas and adrenal glands are normal. No pathologic lymphadenopathy in the abdomen or pelvis. 8 mm stone mid right ureter resulting in moderate right-sided hydronephrosis. No left-sided stone or hydronephrosis No bowel obstruction, free air, free fluid or abscess. Appendectomy. No significant bony abnormality. IMPRESSION: 8 mm mid right ureter resulting in moderate right hydronephrosis.
--- NOTE | 2023-07-31 18:49 | ER ---
Nurse's Notes [facility] Name: Adeel Antoine Age: 53 yrs Sex: Male : 1970 Arrival Date: 07/31/2023 Time: 15:30 Bed 17 Private MD: Diagnosis: Hydronephrosis with renal and ureteral calculous obstruction Presentation: 07/31 15:50 Chief complaint: Patient states: he started having right lower back pain at approx 0930 ap3 this morning. patient rates his pain to be an 8/10 on the pain scale at this time. patient denies any difficulty urinating. Patient states nothing makes the pain better. Coronavirus screen: At this time, the client does not indicate any symptoms associated with coronavirus-19. Ebola Screen: No symptoms or risks identified at this time. Initial Sepsis Screen: Does the patient meet any 2 criteria? No. Patient's initial sepsis screen is negative. Does the patient have a suspected source of infection? No. Patient's initial sepsis screen is negative. Risk Assessment: Do you want to hurt yourself or someone else? Patient reports no desire to harm self or others. Onset of symptoms was July 31, 2023 at 09:30. 15:50 Method Of Arrival: Ambulatory ap3 15:50 Acuity: JEREMIAS 3 ap3 Triage Assessment: 15:52 General: Appears uncomfortable, Behavior is restless. Pain: Complains of pain in right ap3 low back Pain currently is 8 out of 10 on a pain scale. Pain began gradually, 0930 this morning. Neuro: Level of Consciousness is awake, alert, obeys commands, Oriented to person, place, time, situation, Appropriate for age. Cardiovascular: Patient's skin is warm and dry. Respiratory: Airway is patent Respiratory effort is even, unlabored, Respiratory pattern is regular, symmetrical. GI: Reports nausea. Historical: - Allergies: 15:51 Codeine; ap3 - PMHx: 15:51 HIV; Kidney stones; ap3 - PSHx: 15:51 Appendectomy; ap3 - Immunization history:: Client reports receiving the 2nd dose of the Covid vaccine. - Social history:: Smoking status: Patient reports the use of cigarette tobacco products, smokes one-half pack cigarettes per day. Screenin:52 [facility] ED Fall Risk Assessment (Adult) History of falling in the last 3 months, ap3 including since admission No falls in past 3 months (0 pts). Abuse screen: Denies threats or abuse. Nutritional screening: No deficits noted. Tuberculosis screening: No symptoms or risk factors identified. Assessment: 16:26 General: Appears uncomfortable, well groomed, well developed, well nourished, Behavior me1 is cooperative, appropriate for age, restless. Pain: Complains of pain in back and right low back Pain does not radiate. Pain currently is 10 out of 10 on a pain scale. Quality of pain is described as unable to describe. states, "it feels like something is in there." Pain began 9:30 am Is continuous. Neuro: Level of Consciousness is awake, alert, obeys commands, Oriented to person, place, time, situation, Appropriate for age. Cardiovascular: Capillary refill < 3 seconds Patient's skin is warm and dry. Respiratory: Airway is patent Respiratory effort is even, unlabored, Respiratory pattern is regular, symmetrical. : Denies pain in right in lower back. 16:29 GI: Bowel sounds present X 4 quads. Abd is soft X 4 quads. me1 19:09 Reassessment: Patient appears in no apparent distress at this time. Patient and/or jw7 family updated on plan of care and expected duration. Pain level reassessed. Patient is alert, oriented x 3, equal unlabored respirations, skin warm/dry/pink. Patient states feeling better. Patient states symptoms have improved. Vital Signs: 15:50 BP 121 / 90; Pulse 75; Resp 19; Temp 98.1; Pulse Ox 100% ; Weight 80.74 kg; Pain 8/10; ap3 16:29 BP 111 / 59; Pulse 74; Resp 20; Pulse Ox 100% on R/A; me1 16:48 BP 145 / 84; Pulse 52; Resp 18; Pulse Ox 96% ; ld1 17:00 BP 130 / 83; Pulse 54; Resp 16; Pulse Ox 97% on R/A; ld1 18:22 BP 124 / 83; Pulse 71; Resp 16; Pulse Ox 98% on R/A; ld1 19:09 BP 108 / 73; Pulse 58; Resp 17 S; Pulse Ox 99% on R/A; jw7 15:50 Pain Scale: Adult ap3 ED Course: 15:32 Patient arrived in ED. mr 15:34 [facility]. snw 15:34 Osvaldo Rudolph MD is Attending Physician. snw 15:51 Triage completed. ap3 15:53 Arm band placed on right wrist. ap3 16:22 Sarah Kessler, RN is Primary Nurse. me1 16:26 Patient has correct armband on for positive identification. Bed in low position. Call me1 light in reach. Side rails up X 1. Provided Education on: POC. Verbalized understanding. . 16:26 No provider procedures requiring assistance completed. me1 16:29 Urine W/Microscopic (UAM) Sent. ld1 17:19 CT Stone Protocol In Process Unspecified. EDMS 18:48 Mario Vail MD is Referral Physician. snw 19:16 Patient did not have IV access during this emergency room visit. jw7 Administered Medications: 16:22 Drug: Flomax PO 0.4 mg PO once Route: PO; ld1 19:09 Follow up: Response: No adverse reaction jw7 16:26 Drug: morphine IM 4 mg IM once Route: IM; Site: left deltoid; me1 19:09 Follow up: Response: No adverse reaction; Marked relief of symptoms jw7 16:26 Drug: Ketorolac IM 30 mg IM once Route: IM; Site: left deltoid; me1 19:09 Follow up: Response: No adverse reaction; Marked relief of symptoms jw7 Medication: 16:26 VIS not applicable for this client. me1 Outcome: 18:49 Discharge ordered by . snw 19:16 Discharged to home ambulatory, jw7 19:16 Condition: stable 19:16 Discharge instructions given to patient, Instructed on discharge instructions, follow up and referral plans. medication usage, Demonstrated understanding of instructions, follow-up care, medications, Prescriptions given X 3, 19:16 Patient left the ED. jw7 Signatures: Dispatcher [employer] EDMS Ny Hopkins FNP-C G[employer]MENT MANUFACTURER-Csnw Cyn Rosales, Reg Reg mr WhitakerGalina, RN RN ap3 Bing Roman RN RN ld1 Selena Bocanegra RN RN jw7 Sarah Kessler, CLARA RN me1
--- NOTE | 2023-07-31 18:49 | EDPHYS ---
Physician Documentation [facility] Name: Adeel Antoine Age: 53 yrs Sex: Male : 1970 Arrival Date: 07/31/2023 Time: 15:30 Bed 17 Private MD: ED Physician Osvaldo Rudolph HPI: 07/31 16:05 This 53 yrs old Male presents to ER via Ambulatory with complaints of Possible Kidney snw Stone. 16:05 Onset: The symptoms/episode began/occurred acutely, and became persistent. Associated snw signs and symptoms: The patient has no apparent associated signs or symptoms. The patient has experienced similar episodes in the past, several times. The patient has not recently seen a physician, and does not have an established primary care provider. Historical: - Allergies: 15:51 Codeine; ap3 - PMHx: 15:51 HIV; Kidney stones; ap3 - PSHx: 15:51 Appendectomy; ap3 - Immunization history:: Client reports receiving the 2nd dose of the Covid vaccine. - Social history:: Smoking status: Patient reports the use of cigarette tobacco products, smokes one-half pack cigarettes per day. ROS: 16:05 Constitutional: Negative for fever, chills, and weight loss, Eyes: Negative for injury, snw pain, redness, and discharge, ENT: Negative for injury, pain, and discharge, Neck: Negative for injury, pain, and swelling, Cardiovascular: Negative for chest pain, palpitations, and edema, Respiratory: Negative for shortness of breath, cough, wheezing, and pleuritic chest pain, : Negative for injury, bleeding, discharge, and swelling, MS/Extremity: Negative for injury and deformity, Skin: Negative for injury, rash, and discoloration, Neuro: Negative for headache, weakness, numbness, tingling, and seizure, Psych: Negative for depression, anxiety, suicide ideation, homicidal ideation, and hallucinations, 16:05 Abdomen/GI: Negative for abdominal pain, nausea, vomiting, diarrhea, and constipation, 16:05 Back: Positive for flank pain, on the right, Exam: 16:04 Constitutional: This is a well developed, well nourished patient who is awake, alert, snw and in no acute distress. Head/Face: Normocephalic, atraumatic. Eyes: Pupils equal round and reactive to light, extra-ocular motions intact. Lids and lashes normal. Conjunctiva and sclera are non-icteric and not injected. Cornea within normal limits. Periorbital areas with no swelling, redness, or edema. ENT: Nares patent. No nasal discharge, no septal abnormalities noted. Tympanic membranes are normal and external auditory canals are clear. Oropharynx with no redness, swelling, or masses, exudates, or evidence of obstruction, uvula midline. Mucous membranes moist. Neck: Trachea midline, no thyromegaly or masses palpated, and no cervical lymphadenopathy. Supple, full range of motion without nuchal rigidity, or vertebral point tenderness. No Meningismus. Chest/axilla: Normal chest wall appearance and motion. Nontender with no deformity. No lesions are appreciated. Cardiovascular: Regular rate and rhythm with a normal S1 and S2. No gallops, murmurs, or rubs. Normal PMI, no JVD. No pulse deficits. Respiratory: Lungs have equal breath sounds bilaterally, clear to auscultation and percussion. No rales, rhonchi or wheezes noted. No increased work of breathing, no retractions or nasal flaring. Abdomen/GI: Soft, non-tender, with normal bowel sounds. No distension or tympany. No guarding or rebound. No evidence of tenderness throughout. Skin: Warm, dry with normal turgor. Normal color with no rashes, no lesions, and no evidence of cellulitis. MS/ Extremity: Pulses equal, no cyanosis. Neurovascular intact. Full, normal range of motion. Neuro: Awake and alert, GCS 15, oriented to person, place, time, and situation. Cranial nerves II-XII grossly intact. Motor strength 5/5 in all extremities. Sensory grossly intact. Cerebellar exam normal. Normal gait. Psych: Awake, alert, with orientation to person, place and time. Behavior, mood, and affect are within normal limits. 16:04 Back: pain, that is moderate, 16:04 Back: pain, right flank pain, Vital Signs: 15:50 BP 121 / 90; Pulse 75; Resp 19; Temp 98.1; Pulse Ox 100% ; Weight 80.74 kg; Pain 8/10; ap3 16:29 BP 111 / 59; Pulse 74; Resp 20; Pulse Ox 100% on R/A; me1 16:48 BP 145 / 84; Pulse 52; Resp 18; Pulse Ox 96% ; ld1 17:00 BP 130 / 83; Pulse 54; Resp 16; Pulse Ox 97% on R/A; ld1 18:22 BP 124 / 83; Pulse 71; Resp 16; Pulse Ox 98% on R/A; ld1 19:09 BP 108 / 73; Pulse 58; Resp 17 S; Pulse Ox 99% on R/A; jw7 15:50 Pain Scale: Adult ap3 MDM: 15:54 Patient medically screened. nichole 16:06 Differential diagnosis: viral Infection, bacterial infection, UTI, renal/ureteral snw calculi. Data reviewed: vital signs, nurses notes, radiologic studies, CT scan. I considered the following discharge prescriptions or medication management in the emergency department Medications were administered in the Emergency Department. See MAR. Counseling: I had a detailed discussion with the patient and/or guardian regarding the historical points, exam findings, and any diagnostic results supporting the discharge/admit diagnosis. 07/31 16:01 Order name: Urine W/Microscopic (UAM); Complete Time: 17:07 snw 07/31 16:01 Order name: CT Stone Protocol; Complete Time: 17:32 snw Administered Medications: 16:22 Drug: Flomax PO 0.4 mg PO once Route: PO; ld1 19:09 Follow up: Response: No adverse reaction jw7 16:26 Drug: morphine IM 4 mg IM once Route: IM; Site: left deltoid; me1 19:09 Follow up: Response: No adverse reaction; Marked relief of symptoms jw7 16:26 Drug: Ketorolac IM 30 mg IM once Route: IM; Site: left deltoid; me1 19:09 Follow up: Response: No adverse reaction; Marked relief of symptoms jw7 Disposition Summary: 07/31/23 18:49 Discharge Ordered Notes: Location: Home snw Condition: Stable snw Diagnosis - Hydronephrosis with renal and ureteral calculous obstruction snw Followup: snw - With: Emergency Department - When: As needed - Reason: Worsening of condition Followup: snw - With: Mario Vail MD - When: 5 - 6 days - Reason: Recheck today's complaints, Continuance of care Discharge Instructions: - Discharge Summary Sheet snw - Kidney Stones snw - Renal Colic snw - Hydronephrosis snw - Dietary Guidelines to Help Prevent Kidney Stones snw - Rehydration, Adult snw Forms: - Medication Reconciliation Form snw - Thank You Letter snw - Antibiotic Education snw - Prescription Opioid Use snw - Patient Portal Instructions snw - Leadership Thank You Letter snw Prescriptions: - Augmentin 875-125 mg Oral Tablet - take 1 tablet ORAL route every 12 hours for 10 days; 20 tablet; Refills: 0, snw Product Selection Permitted - Mobic 7.5 mg Oral Tablet - take 1 tablet ORAL route once daily take with food; 20 tablet; Refills: 0, snw Product Selection Permitted - promethazine 25 mg Oral Tablet - take 1 tablet ORAL route every 6 hours As needed; 20 tablet; Refills: 0, snw Product Selection Permitted Signatures: Dispatcher [employer] EDOsvaldo Young MD MD cha Waters, Shelly, ABALONE SHELLER-C ABALONE SHELLER-Csnw Galina Whitaker RN RN ap3 Bing Roman RN RN ld1 Sarah Kessler RN RN me1 Selena Bocanegra RN jw7
[2023-07-31 19:38] VITALS: TEMP 98.1
[2023-07-31 19:46] VITALS: BP 108/73; O2SAT 99
== END 2023-07-31 19:16 | disposition home or self-care (01) ==
LOC: ER 15:30
DX: N13.2 Hydronephrosis with renal and ureteral calculous obstruction (principal); M54.50 Low back pain, unspecified; Z88.5 Allergy status to narcotic agent; Z87.442 Personal history of urinary calculi; Z72.0 Tobacco use
CPT/HCPCS: 74176; 76377; 81001; 96372; 99284

== ENCOUNTER → 2023-11-03 | Emergency (ER) | payer OTHER, SELFPAY ==
[~2023-11-03] MED LIST: FENTANYL CITR 100 MCG/2 ML ONE
--- OUTSIDE RECORDS SUMMARY | 2023-11-03 18:07 | XMS REPORT | Continuity of Care Document ---
Author Name Unknown Address [address] [facility] [place] [address] [facility] [address] [facility] [place] [address] Care Team Providers Care Data Entry Analyst Name Role Phone MEGHANA GARSIA Primary Care Physician UnavailMEGHANA Baker Attending Clinician Unavailable STANLEY HUNTER Attending Clinician UnavailSTANLEY Lopez Attending Clinician UnavailKALLI Gallego Attending Clinician Unavailable Todd Rabago RN, Lina Barber Attending Clinician UnaKalli Mclean LCSW Attending Clinician [phone] Beatriz Su MA Attending Clinician Unavailab anthony Merritt RN, Lina Guillen Attending Clinician Kenneth Paiz MA Attending Clinician Unavailrosalia granado [facility] Attending Clinician Unavailable Mary Fernando RN Attending Clinician Unavailabl vannesa Chan RN, Dm Guillen Attending Clinician Unavaila Renee Rosales LVN Attending Clinician UnaBarbara Vegas MA Attending Clinician Unava SUGEY Perez Attending Clinician Unavaila ALANNA North Attending Clinician Unavailable LISETH GAMEZ Attending Clinician Unavaila lucina Gamez ORDER ENTRY SPECIALIST, Liseth Pineda Attending Clinician [phone] MEGHANA RUSSELL Attending Clinician Unavailable Fabiola Cartagena DO Attending Clinician [phone] Meghana Russell DO Attending Clinician [phone] Doctor Unassigned, [place]ott Attending Clinician U theresa Barrie MARTIN, Bonnie Attending Clinician [phone] Meghana Garsia MD Attending Clinician [phone] INDIGO VICTOR Attending Clinician Unavailab KALLI Padilla Attending Clinician Unavailable JOSSE CARR Attending Clinician Unavailable Josse Carr DO Attending Clinician +[phone] Visit, [facility] Id Nurse Attending Clinician Unavaila Sanjuana Falk Attending Clinician [phone] SANJUANA HUTCHINSON Attending Clinician Unavailable HELEN CRUZ Attending Clinician Unavailable Stanley Cervantes Attending Clinician + [phone] Helen Cruz MD Attending Clinician [phone] Nancy Andujar RN Attending Clinician Unavailable Gregorio Hanna MD Attending Clinician [phone] JORGE GARCIA Attending Clinician Unavailab REYES Villalpando Attending Clinician Unavailable Reyes Beckham MD Attending Clinician [phone] ANTHONY JOHNSON Attending Clinician Unavail able Nurse, Adc Pob Immunization Attending Clinician Unavailable Anthony Johnson DO Attending Clinician [phone] Maryellen ORDER ENTRY SPECIALIST, Cynherman Attending Clinician [phone] GREGORIO HANNA Attending Clinician UnaMolly Perry LVN Attending Clinician Unavaila ADELA Youssef Attending Clinician Unavailable SAMIADecember Attending Clinician Unavailable Brian GORE, Nayla Attending Clinician [phone] Devonte Hightower Attending Clinician [phone] Edilma Asher Attending Clinician [phone] Go Beverly Attending Clinician [phone] Codey De La Rosa MD Attending Clinician LISETH GAMEZ Admitting Clinician Unavaila MEGHANA Garcia Admitting Clinician Unavailable Meghana Russell DO Admitting Clinician HELEN CRUZ Admitting Clinician Unavailable Helen Cruz MD Admitting Clinician [phone] Payers Payer Name Policy Type Policy Number Effective Date Expirati on Date Source [facility] [id number] 2023 00:00:00 Problems Condition Name Condition Details Condition Category Status Onset Date Resolution Date Last Treatment Date Treating Clinician Comments Source Cellulitis of right upper extremity Cellulitis of right upper extremity Disease Active 03-09 00:00: 00 [facility] Necrotizin g cellulitis Necrotizin g cellulitis Disease Active 2021-09 00:00: 00 [facility] Cellulitis of left lower leg Cellulitis of left lower leg Disease Active 01-02 00:00: 00 [facility] Furunculos is Furunculos is Disease Active 02-12 00:00: 00 [facility] HIV (human immunodefi ciency virus infection) HIV (human immunodefi ciency virus infection) Disease Active 06-07 00:00: 00 [facility] HLD (hyperlipi demia) HLD (hyperlipi demia) Disease Active 06-07 00:00: 00 [facility] Allergies, Adverse Reactions, Alerts Allergy Name Allergy Type Status Severity Reaction(s) Onset Date Inactive Date Treating Clinician Comments Source NO KNOWN ALLERGIE S Drug Class Active [facility] Social History Social Habit Start Date Stop Date Quantity Comments Source History SDOH Alcohol Frequency [facility] History SDOH Alcohol Std Drinks [facility] History SDOH Alcohol Binge [facility] History of tobacco use Cigarette Smoker [facility] of Social function 2023-10-20 00:00:00 2023-10-20 00:00:00 [facility] Alcohol intake 2023-08-29 00:00:00 2023-08-29 00:00:00 Current drinker of alcohol (finding) [facility] Tobacco use and exposure 2023-03-09 00:00:00 2023-03-09 00:00:00 User of smokeless tobacco [facility] Tobacco Comment 2023-03-09 00:00:00 2023-03-09 00:00:00 Less than half a pack a day [facility] Cigarettes smoked current (pack per day) - Reported 2023-03-09 00:00:00 2023-03-09 00:00:00 [facility] Exposure to SARS-CoV-2 (event) 2022-11-15 00:00:00 2022-11-25 10:34:00 Not sure [facility] Alcohol Comment 2018-06-08 00:00:00 2018-06-08 00:00:00 12 pack beer monthly [facility] Sex Ass[birth year] At 1970 00:00:00 1970 00:00:00 [facility] Smoking Status Start Date Stop Date Source Smokes tobacco daily 2023-03-09 00:00:00 [facility] Medications Ordered Medication Name Filled Medication Name Start Date Stop Date Current Medication? Ordering Clinician Indication Dosage Frequency Signature (SIG) Comments Components Source bictegrav-e mtricit-ten ofov ala (BIKTARVY) 50-200-25 mg tablet 2022-09 00:00: 00 Yes [id number] 1{tbl} Take 1 tablet by mouth in the morning. [facility] bictegrav-e mtricit-ten ofov ala (BIKTARVY) 50-200-25 mg tablet 2022-09 00:00: 00 Yes [id number] 1{tbl} Take 1 tablet by mouth in the morning. [facility] bictegrav-e mtricit-ten ofov ala (BIKTARVY) 50-200-25 mg tablet 2022-09 00:00: 00 Yes [id number] 1{tbl} Take 1 tablet by mouth in the morning. [facility] bictegrav-e mtricit-ten ofov ala (BIKTARVY) 50-200-25 mg tablet 2022-09 2-18 00:00: 00 Yes [id number] 1{tbl} Take 1 tablet by mouth in the morning. [facility] bictegrav-e mtricit-ten ofov ala (BIKTARVY) 50-200-25 mg tablet 2022-09 2- 00:00: 00 Yes [id number] 1{tbl} Take 1 tablet by mouth in the morning. [facility] bictegrav-e mtricit-ten ofov ala (BIKTARVY) 50-200-25 mg tablet 2022-09 2- 00:00: 00 Yes [id number] 1{tbl} Take 1 tablet by mouth in the morning. [facility] bictegrav-e mtricit-ten ofov ala (BIKTARVY) 50-200-25 mg tablet 2022-09 2 00:00: 00 Yes [id number] 1{tbl} Take 1 tablet by mouth in the morning. [facility] bictegrav-e mtricit-ten ofov ala (BIKTARVY) 50-200-25 mg tablet 2022-09 2- 00:00: 00 Yes [id number] 1{tbl} Take 1 tablet by mouth in the morning. [facility] bictegrav-e mtricit-ten ofov ala (BIKTARVY) 50-200-25 mg tablet 2022-09 2 00:00: 00 Yes [id number] 1{tbl} Take 1 tablet by mouth in the morning. [facility] bictegrav-e mtricit-ten ofov ala (BIKTARVY) 50-200-25 mg tablet 2022-09 2-18 00:00: 00 Yes [id number] 1{tbl} Take 1 tablet by mouth in the morning. [facility] bictegrav-e mtricit-ten ofov ala (BIKTARVY) 50-200-25 mg tablet 2022-09 2-18 00:00: 00 Yes [id number] 1{tbl} Take 1 tablet by mouth in the morning. [facility] bictegrav-e mtricit-ten ofov ala (BIKTARVY) 50-200-25 mg tablet 2022-09 2-18 00:00: 00 Yes [id number] 1{tbl} Take 1 tablet by mouth in the morning. [facility] bictegrav-e mtricit-ten ofov ala (BIKTARVY) 50-200-25 mg tablet 2022-09 2-18 00:00: 00 Yes [id number] 1{tbl} Take 1 tablet by mouth in the morning. [facility] bictegrav-e mtricit-ten ofov ala (BIKTARVY) 50-200-25 mg tablet 2022-09 2-18 00:00: 00 Yes [id number] 1{tbl} Take 1 tablet by mouth in the morning. [facility] bictegrav-e mtricit-ten ofov ala (BIKTARVY) 50-200-25 mg tablet 2022-09 2- 00:00: 00 Yes [id number] 1{tbl} Take 1 tablet by mouth in the morning. [facility] bictegrav-e mtricit-ten ofov ala (BIKTARVY) 50-200-25 mg tablet 2022-09 2 00:00: 00 Yes [id number] 1{tbl} Take 1 tablet by mouth in the morning. [facility] chlorhexidi ne 4 % external liquid 2022-09 00:00: 00 09-10 05:59 :00 Yes [id number] Apply to area(s) once daily as needed for Wound care for up to 30 days. [facility] chlorhexidi ne 4 % external liquid 2022-09 00:00: 00 09-10 05:59 :00 Yes [id number] Apply to area(s) once daily as needed for Wound care for up to 30 days. [facility] chlorhexidi ne 4 % external liquid 2022-09 00:00: 00 09-10 05:59 :00 Yes [id number] Apply to area(s) once daily as needed for Wound care for up to 30 days. [facility] chlorhexidi ne 4 % external liquid 2022-09 00:00: 00 09-10 05:59 :00 Yes [id number] Apply to area(s) once daily as needed for Wound care for up to 30 days. [facility] chlorhexidi ne 4 % external liquid 2022-09 00:00: 00 09-10 05:59 :00 Yes [id number] Apply to area(s) once daily as needed for Wound care for up to 30 days. [facility] chlorhexidi ne 4 % external liquid 2022-09 00:00: 00 09-10 05:59 :00 Yes [id number] Apply to area(s) once daily as needed for Wound care for up to 30 days. [facility] chlorhexidi ne 4 % external liquid 2022-09 00:00: 00 09-10 05:59 :00 Yes [id number] Apply to area(s) once daily as needed for Wound care for up to 30 days. [facility] chlorhexidi ne 4 % external liquid 2022-09 00:00: 00 09-10 05:59 :00 Yes [id number] Apply to area(s) once daily as needed for Wound care for up to 30 days. [facility] chlorhexidi ne 4 % external liquid 2022-09 00:00: 00 09-10 05:59 :00 Yes [id number] Apply to area(s) once daily as needed for Wound care for up to 30 days. [facility] chlorhexidi ne 4 % external liquid 2022-09 00:00: 00 09-10 05:59 :00 Yes [id number] Apply to area(s) once daily as needed for Wound care for up to 30 days. [facility] chlorhexidi ne 4 % external liquid 2022-09 00:00: 00 09-10 05:59 :00 Yes [id number] Apply to area(s) once daily as needed for Wound care for up to 30 days. [facility] chlorhexidi ne 4 % external liquid 2022-09 00:00: 00 09-10 05:59 :00 No [id number] Apply to area(s) once daily as needed for Wound care for up to 30 days. [facility] chlorhexidi ne 4 % external liquid 2022-09 00:00: 00 09-10 05:59 :00 No [id number] Apply to area(s) once daily as needed for Wound care for up to 30 days. [facility] minocycline 100 mg capsule 2022-09 00:00: 00 08-25 05:59 :00 Yes [id number] 100mg Take 1 capsule by mouth every 12 (twelve) hours for 14 days. [facility] minocycline 100 mg capsule 2022-09 00:00: 00 08-25 05:59 :00 Yes [id number] 100mg Take 1 capsule by mouth every 12 (twelve) hours for 14 days. [facility] minocycline 100 mg capsule 2022-09 00:00: 00 08-25 05:59 :00 Yes [id number] 100mg Take 1 capsule by mouth every 12 (twelve) hours for 14 days. [facility] minocycline 100 mg capsule 2022-09 00:00: 00 08-25 05:59 :00 Yes [id number] 100mg Take 1 capsule by mouth every 12 (twelve) hours for 14 days. [facility] minocycline 100 mg capsule 2022-09 00:00: 00 08-25 05:59 :00 Yes [id number] 100mg Take 1 capsule by mouth every 12 (twelve) hours for 14 days. [facility] minocycline 100 mg capsule 2022-09 00:00: 00 08-25 05:59 :00 No [id number] 100mg Take 1 capsule by mouth every 12 (twelve) hours for 14 days. [facility] tamsulosin (FLOMAX) capsule 0.4 mg 04-14 14:00: 00 Yes .4mg 0.4 mg, Oral, DAILY, First dose on Bess 83/23 at 0900, Until Discontinu ed, Routine [facility] ketorolac (TORADOL) injection 30 mg 04-14 06:15: 00 04-14 05:48 :00 No 30mg 30 mg, Slow IV Push, ONCE, 1 dose, On Bess 04/14/23 at 0115, Routine [facility] morpHINE (4 mg/mL) injection 4 mg 04-14 04:15: 00 04-14 04:43 :00 No 4mg 4 mg, Slow IV Push, ONCE, 1 dose, On Tue04/13/23 at 2315, STAT [facility] iopamidol (ISOVUE 370-500 mL) injection 75 mL 04-14 04:15: 00 04-14 03:21 :00 No [id number] 75mL 75 mL, Intravenou s, ONCE, 1 dose, On Tue04/13/23 at 2315, Routine [facility] NaCl 0.9% (NS) bolus infusion 1,000 mL 04-14 03:45: 00 04-14 03:55 :00 No 1000mL at 999 mL/hr, 1,000 mL, IV Infusion, ONCE, 1 dose, On Tue04/13/23 at 2245, FLORI [facility] ondansetron (ZOFRAN (PF)) injection 4 mg 04-14 03:00: 00 04-14 02:54 :00 No 4mg 4 mg, Slow IV Push, ONCE, 1 dose, On Tue04/13/23 at 2200, FLORI [facility] morpHINE (4 mg/mL) injection 4 mg 04-14 03:00: 00 04-14 02:54 :00 No 4mg 4 mg, Slow IV Push, ONCE, 1 dose, On Tue04/13/23 at 2200, STAT [facility] ketorolac 10 mg tablet 04-14 00:00: 00 Yes [id number] 10mg Take 1 tablet by mouth every 6 (six) hours as needed for Pain (scale 7-10). [facility] 2022-0 8-03 00:00: 00 Yes [id number] 50mg Take 1 tablet by mouth every 6 (six) hours as needed for Pain (scale 7-10). Indication s: acute pain [facility] tablet 2022-0 8-03 00:00: 00 Yes [id number] 10mg Take 1 tablet by mouth every 6 (six) hours as needed for Pain (scale 7-10). [facility] mg tablet 2022-0 8-03 00:00: 00 Yes [id number] 50mg Take 1 tablet by mouth every 6 (six) hours as needed for Pain (scale 7-10). Indication s: acute pain [facility] ketorolac 10 mg tablet 2022-0 8-03 00:00: 00 Yes [id number] 10mg Take 1 tablet by mouth every 6 (six) hours as needed for Pain (scale 7-10). [facility] traMADoL 50 mg tablet 2022-0 8-03 00:00: 00 Yes [id number] 50mg Take 1 tablet by mouth every 6 (six) hours as needed for Pain (scale 7-10). Indication s: acute pain [facility] ketorolac 10 mg tablet 2022-0 8-03 00:00: 00 Yes [id number] 10mg Take 1 tablet by mouth every 6 (six) hours as needed for Pain (scale 7-10). [facility] traMADoL 50 mg tablet 2022-0 8-03 00:00: 00 Yes [id number] 50mg Take 1 tablet by mouth every 6 (six) hours as needed for Pain (scale 7-10). Indication s: acute pain [facility] ketorolac 10 mg tablet 3-0 8-03 00:00: 00 Yes [id number] 10mg Take 1 tablet by mouth every 6 (six) hours as needed for Pain (scale 7-10). [facility] traMADoL 50 mg tablet 3-0 8-03 00:00: 00 Yes [id number] 50mg Take 1 tablet by mouth every 6 (six) hours as needed for Pain (scale 7-10). Indication s: acute pain [facility] ketorolac 10 mg tablet 2022-0 8-03 00:00: 00 Yes [id number] 10mg Take 1 tablet by mouth every 6 (six) hours as needed for Pain (scale 7-10). [facility] traMADoL 50 mg tablet 2022-0 8-03 00:00: 00 Yes [id number] 50mg Take 1 tablet by mouth every 6 (six) hours as needed for Pain (scale 7-10). Indication s: acute pain [facility] ketorolac 10 mg tablet 2022-0 8-03 00:00: 00 Yes [id number] 10mg Take 1 tablet by mouth every 6 (six) hours as needed for Pain (scale 7-10). [facility] traMADoL 50 mg tablet 2022-0 8-03 00:00: 00 Yes [id number] 50mg Take 1 tablet by mouth every 6 (six) hours as needed for Pain (scale 7-10). Indication s: acute pain [facility] ketorolac 10 mg tablet 2022-0 8-03 00:00: 00 Yes [id number] 10mg Take 1 tablet by mouth every 6 (six) hours as needed for Pain (scale 7-10). [facility] tablet 2022-0 8- 00:00: 00 Yes [id number] 50mg Take 1 tablet by mouth every 6 (six) hours as needed for Pain (scale 7-10). Indication s: acute pain [facility] ketorolac 10 mg tablet 2022-0 8-03 00:00: 00 Yes [id number] 10mg Take 1 tablet by mouth every 6 (six) hours as needed for Pain (scale 7-10). [facility] traMADoL 50 mg tablet 2022-0 8-03 00:00: 00 Yes [id number] 50mg Take 1 tablet by mouth every 6 (six) hours as needed for Pain (scale 7-10). Indication s: acute pain [facility] ketorolac 10 mg tablet 2022-0 8-03 00:00: 00 Yes [id number] 10mg Take 1 tablet by mouth every 6 (six) hours as needed for Pain (scale 7-10). [facility] traMADoL 50 mg tablet 0 04-14 00:00: 00 Yes [id number] 50mg Take 1 tablet by mouth every 6 (six) hours as needed for Pain (scale 7-10). Indication s: acute pain [facility] ketorolac 10 mg tablet 0 - 00:00: 00 Yes [id number] 10mg Take 1 tablet by mouth every 6 (six) hours as needed for Pain (scale 7-10). [facility] traMADoL 50 mg tablet 0 - 00:00: 00 Yes [id number] 50mg Take 1 tablet by mouth every 6 (six) hours as needed for Pain (scale 7-10). Indication s: acute pain [facility] ketorolac 10 mg tablet 0 - 00:00: 00 Yes [id number] 10mg Take 1 tablet by mouth every 6 (six) hours as needed for Pain (scale 7-10). [facility] traMADoL 50 mg tablet 0 - 00:00: 00 Yes [id number] 50mg Take 1 tablet by mouth every 6 (six) hours as needed for Pain (scale 7-10). Indication s: acute pain [facility] ketorolac 10 mg tablet 0 04-14 00:00: 00 Yes [id number] 10mg Take 1 tablet by mouth every 6 (six) hours as needed for Pain (scale 7-10). [facility] traMADoL 50 mg tablet 0 - 00:00: 00 Yes [id number] 50mg Take 1 tablet by mouth every 6 (six) hours as needed for Pain (scale 7-10). Indication s: acute pain [facility] ketorolac 10 mg tablet 0 8- 00:00: 00 Yes [id number] 10mg Take 1 tablet by mouth every 6 (six) hours as needed for Pain (scale 7-10). [facility] traMADoL 50 mg tablet 2022-0 8- 00:00: 00 Yes [id number] 50mg Take 1 tablet by mouth every 6 (six) hours as needed for Pain (scale 7-10). Indication s: acute pain [facility] ketorolac 10 mg tablet 2023-0 8-03 00:00: 00 Yes [id number] 10mg Take 1 tablet by mouth every 6 (six) hours as needed for Pain (scale 7-10). [facility] traMADoL 50 mg tablet 2022-0 8-03 00:00: 00 Yes [id number] 50mg Take 1 tablet by mouth every 6 (six) hours as needed for Pain (scale 7-10). Indication s: acute pain [facility] ketorolac 10 mg tablet 2022-0 8-03 00:00: 00 Yes [id number] 10mg Take 1 tablet by mouth every 6 (six) hours as needed for Pain (scale 7-10). [facility] traMADoL 50 mg tablet 2022-0 8- 00:00: 00 Yes [id number] 50mg Take 1 tablet by mouth every 6 (six) hours as needed for Pain (scale 7-10). Indication s: acute pain [facility] ketorolac 10 mg tablet 2022-0 8-03 00:00: 00 Yes [id number] 10mg Take 1 tablet by mouth every 6 (six) hours as needed for Pain (scale 7-10). [facility] tablet 2022-0 8- 00:00: 00 Yes [id number] 50mg Take 1 tablet by mouth every 6 (six) hours as needed for Pain (scale 7-10). Indication s: acute pain [facility] ketorolac 10 mg tablet 2022-0 8-03 00:00: 00 Yes [id number] 10mg Take 1 tablet by mouth every 6 (six) hours as needed for Pain (scale 7-10). [facility] traMADoL 50 mg tablet 3-0 8-03 00:00: 00 Yes [id number] 50mg Take 1 tablet by mouth every 6 (six) hours as needed for Pain (scale 7-10). Indication s: acute pain [facility] ketorolac 10 mg tablet 3-0 8-03 00:00: 00 Yes [id number] 10mg Take 1 tablet by mouth every 6 (six) hours as needed for Pain (scale 7-10). [facility] traMADoL 50 mg tablet 2023-0 8-03 00:00: 00 Yes [id number] 50mg Take 1 tablet by mouth every 6 (six) hours as needed for Pain (scale 7-10). Indication s: acute pain [facility] ketorolac 10 mg tablet 0 04-14 00:00: 00 Yes [id number] 10mg Take 1 tablet by mouth every 6 (six) hours as needed for Pain (scale 7-10). [facility] traMADoL 50 mg tablet 0 04-14 00:00: 00 Yes [id number] 50mg Take 1 tablet by mouth every 6 (six) hours as needed for Pain (scale 7-10). Indication s: acute pain [facility] ketorolac 10 mg tablet 0 04-14 00:00: 00 Yes [id number] 10mg Take 1 tablet by mouth every 6 (six) hours as needed for Pain (scale 7-10). [facility] traMADoL 50 mg tablet 0 04-14 00:00: 00 Yes [id number] 50mg Take 1 tablet by mouth every 6 (six) hours as needed for Pain (scale 7-10). Indication s: acute pain [facility] ketorolac 10 mg tablet 0 04-14 00:00: 00 Yes [id number] 10mg Take 1 tablet by mouth every 6 (six) hours as needed for Pain (scale 7-10). [facility] traMADoL 50 mg tablet 0 04-14 00:00: 00 Yes [id number] 50mg Take 1 tablet by mouth every 6 (six) hours as needed for Pain (scale 7-10). Indication s: acute pain [facility] ketorolac 10 mg tablet 0 04-14 00:00: 00 Yes [id number] 10mg Take 1 tablet by mouth every 6 (six) hours as needed for Pain (scale 7-10). [facility] traMADoL 50 mg tablet 0 04-14 00:00: 00 Yes [id number] 50mg Take 1 tablet by mouth every 6 (six) hours as needed for Pain (scale 7-10). Indication s: acute pain [facility] ketorolac 10 mg tablet 0 8-03 00:00: 00 Yes [id number] 10mg Take 1 tablet by mouth every 6 (six) hours as needed for Pain (scale 7-10). [facility] traMADoL 50 mg tablet 2022-0 8-03 00:00: 00 Yes [id number] 50mg Take 1 tablet by mouth every 6 (six) hours as needed for Pain (scale 7-10). Indication s: acute pain [facility] ketorolac 10 mg tablet 2022-0 8-03 00:00: 00 Yes [id number] 10mg Take 1 tablet by mouth every 6 (six) hours as needed for Pain (scale 7-10). [facility] traMADoL 50 mg tablet 2022-0 8-03 00:00: 00 Yes [id number] 50mg Take 1 tablet by mouth every 6 (six) hours as needed for Pain (scale 7-10). Indication s: [facility] 20[facility]-0 8-03 00:00: 00 Yes [id number] 10mg Take 1 tablet by mouth every 6 (six) hours as needed for Pain (scale 7-10). [facility] tablet 2022-0 8-03 00:00: 00 Yes [id number] 50mg Take 1 tablet by mouth every 6 (six) hours as needed for Pain (scale 7-10). Indication s: acute pain [facility] ketorolac 10 mg tablet 2022-0 8-03 00:00: 00 Yes [id number] 10mg Take 1 tablet by mouth every 6 (six) hours as needed for Pain (scale 7-10). [facility] traMADoL 50 mg tablet 3-0 8-03 00:00: 00 Yes [id number] 50mg Take 1 tablet by mouth every 6 (six) hours as needed for Pain (scale 7-10). Indication s: acute pain [facility] ketorolac 10 mg tablet 3-0 8-03 00:00: 00 Yes [id number] 10mg Take 1 tablet by mouth every 6 (six) hours as needed for Pain (scale 7-10). [facility] traMADoL 50 mg tablet 3-0 8-03 00:00: 00 Yes [id number] 50mg Take 1 tablet by mouth every 6 (six) hours as needed for Pain (scale 7-10). Indication s: acute pain [facility] ketorolac 10 mg tablet 0 8-03 00:00: 00 Yes [id number] 10mg Take 1 tablet by mouth every 6 (six) hours as needed for Pain (scale 7-10). [facility] traMADoL 50 mg tablet 8- 00:00: 00 Yes [id number] 50mg Take 1 tablet by mouth every 6 (six) hours as needed for Pain (scale 7-10). Indication s: acute pain [facility] ketorolac 10 mg tablet 8- 00:00: 00 Yes [id number] 10mg Take 1 tablet by mouth every 6 (six) hours as needed for Pain (scale 7-10). [facility] traMADoL 50 mg tablet 04-14 00:00: 00 Yes [id number] 50mg Take 1 tablet by mouth every 6 (six) hours as needed for Pain (scale 7-10). Indication s: acute pain [facility] ketorolac 10 mg tablet 8- 00:00: 00 Yes [id number] 10mg Take 1 tablet by mouth every 6 (six) hours as needed for Pain (scale 7-10). [facility] traMADoL 50 mg tablet 04-14 00:00: 00 Yes [id number] 50mg Take 1 tablet by mouth every 6 (six) hours as needed for Pain (scale 7-10). Indication s: acute pain [facility] sulfamethox azole-trime thoprim (BACTRIM DS) 800-160 mg per tablet 630 00:00: 00 03-23 04:59 :00 No [id number] 1{tbl} Take 1 tablet by mouth in the morning and 1 tablet in the evening. Do all this for 11 days. [facility] traMADoL 50 mg tablet 630 00:00: 00 03-19 04:59 :00 No [id number] 50mg Take 1 tablet by mouth every 6 (six) hours as needed for Pain (scale 7-10) for up to 7 days. Indication s: acute pain [facility] iopamidol (ISOVUE 370-500 mL) injection 80 mL 03-10 21:00: 00 03-10 21:00 :00 No [id number] 80mL 80 mL, Intravenou s, ONCE, 1 dose, On Bess 03/10/23 at 1600, Routine [facility] vancomycin 1,250 mg in NaCl 0.9% (NS) 250 mL VIAL-MATE IV piggyback 03-10 03:00: 00 03-15 02:59 :00 No 15mg/kg 1,250 mg (rounded from 1,231.5 mg = 15 mg/kg ?82.1 kg), IV Piggyback, Q12H ABX, 10 doses, First dose on Tue03/09/23 at 2200, Last dose on Tue03/14/23 at 1000, Administer over 90 Minutes, 250 mL
R bekah for Anti-Infec tive: Empiric Therapy for Suspected Infection< br>Empiric Therapy Site: Skin / Soft tissue
Duration of therapy: 5 days [facility] atorvastati n (LIPITOR) tablet 40 mg 03-10 02:00: 00 Yes 40mg 40 mg, Oral, QHS, First dose on Tue03/09/23 at 2100, Until Discontinu ed, Routine [facility] nicotine (NICODERM) 14 mg/24 hr patch 1 Patch 03-09 23:45: 00 Yes 1{patch } 1 Patch, Topical, Administer over 24 Hours, Q24H, First dose on Tue03/09/23 at 1845, Until Discontinu ed, Routine [facility] bictegrav-e mtricit-ten ofov ala (BIKTARVY) 50-200-25 mg tablet 1 tablet 03-09 23:00: 00 Yes 1{tbl} 1 tablet, Oral, DAILY, First dose on Tue03/09/23 at 1800, Until Discontinu ed, Routine [facility] ampicillin- sulbactam (UNASYN) 3 g in NaCl 0.9% (NS) 100 mL MINI-BAG 03-09 23:00: 00 Yes 3g 3 g, IV Piggyback, Q6H ABX, First dose (after last reorder) on Tue03/09/23 at 1800, Until Discontinu ed, Administer over 30 Minutes, 100 mL
Reas on for Anti-Infec tive: Documented Infection< br>Documen lars Infection Site: Skin / Soft Tissue
Duration of Therapy: 7 days [facility] enoxaparin (LOVENOX) injection 40 mg 03-09 22:00: 00 Yes 40mg 40 mg, Subcutaneo us, DAILY, First dose on Tue03/09/23 at 1700, Until Discontinu ed, Routine [facility] HYDROcodone -acetaminop hen (NORCO 5) 5-325 mg tablet 1 tablet 03-09 15:50: 46 03-11 15:49 :46 No 1{tbl} 1 tablet, Oral, Q6HPRN, Starting on Tue03/09/23 at 1050, Until Tue03/11/23 at 1049, Routine, Pain (scale 4-6) [facility] acetaminoph en (TYLENOL) tablet 650 mg 03-09 15:50: 44 Yes 650mg 650 mg, Oral, Q6HPRN, Starting on Tue03/09/23 at 1050, Until Discontinu ed, Routine, Pain (scale 1-3) [facility] vancomycin 1,250 mg in NaCl 0.9% (NS) 250 mL VIAL-MATE IV piggyback 03-09 15:00: 00 03-09 17:19 :00 No 15mg/kg 1,250 mg (rounded from 1,231.5 mg = 15 mg/kg ?82.1 kg), IV Piggyback, ONCE, 1 dose, On Tue03/09/23 at 1000, Administer over 90 Minutes, 250 mL
Reas on for Anti-Infec tive: Documented Infection& lt;br>Docu mented Infection Site: Skin / Soft Tissue
Duration of Therapy: 7 days [facility] ampicillin- sulbactam (UNASYN) 3 g in NaCl 0.9% (NS) 100 mL MINI-BAG 03-09 14:15: 00 03-09 15:10 :00 No 3g 3 g, IV Piggyback, ONCE, 1 dose, On Tue03/09/23 at 0915, Administer over 30 Minutes, 100 mL
Reas on for Anti-Infec tive: Documented Infection< br>Documen lars Infection Site: Skin / Soft Tissue
Duration of Therapy: 7 days [facility] povidone-io dine (BETADINE SURGICAL SCRUB) 7.5 % Soln 02-17 00:00: 00 Yes [id number] 3{bottl e} Apply 3 Bottles to area(s) in the morning. [facility] bictegrav-e mtricit-ten ofov ala (BIKTARVY) 50-200-25 mg tablet 02-17 00:00: 00 Yes [id number] 1{tbl} Take 1 tablet by mouth in the morning. [facility] bictegrav-e mtricit-ten ofov ala (BIKTARVY) 50-200-25 mg tablet 02-17 00:00: 00 Yes [id number] 1{tbl} Take 1 tablet by mouth in the morning. [facility] bictegrav-e mtricit-ten ofov ala (BIKTARVY) 50-200-25 mg tablet 02-17 00:00: 00 Yes [id number] 1{tbl} Take 1 tablet by mouth in the morning. [facility] bictegrav-e mtricit-ten ofov ala (BIKTARVY) 50-200-25 mg tablet 02-17 00:00: 00 Yes [id number] 1{tbl} Take 1 tablet by mouth in the morning. [facility] bictegrav-e mtricit-ten ofov ala (BIKTARVY) 50-200-25 mg tablet 02-17 00:00: 00 Yes [id number] 1{tbl} Take 1 tablet by mouth in the morning. [facility] bictegrav-e mtricit-ten ofov ala (BIKTARVY) 50-200-25 mg tablet 2022-0 6- 00:00: 00 Yes [id number] 1{tbl} Take 1 tablet by mouth in the morning. [facility] bictegrav-e mtricit-ten ofov ala (BIKTARVY) 50-200-25 mg tablet 2022-0 6- 00:00: 00 Yes [id number] 1{tbl} Take 1 tablet by mouth in the morning. [facility] bictegrav-e mtricit-ten ofov ala (BIKTARVY) 50-200-25 mg tablet 2022-0 6 00:00: 00 Yes [id number] 1{tbl} Take 1 tablet by mouth in the morning. [facility] bictegrav-e mtricit-ten ofov ala (BIKTARVY) 50-200-25 mg tablet 2022-0 6- 00:00: 00 Yes [id number] 1{tbl} Take 1 tablet by mouth in the morning. [facility] bictegrav-e mtricit-ten ofov ala (BIKTARVY) 50-200-25 mg tablet 2022-0 02-17 00:00: 00 Yes [id number] 1{tbl} Take 1 tablet by mouth in the morning. [facility] bictegrav-e mtricit-ten ofov ala (BIKTARVY) 50-200-25 mg tablet 2022-0 6- 00:00: 00 Yes [id number] 1{tbl} Take 1 tablet by mouth in the morning. [facility] bictegrav-e mtricit-ten ofov ala (BIKTARVY) 50-200-25 mg tablet 2022-0 6- 00:00: 00 Yes [id number] 1{tbl} Take 1 tablet by mouth in the morning. [facility] bictegrav-e mtricit-ten ofov ala (BIKTARVY) 50-200-25 mg tablet 2022-0 6-08 00:00: 00 Yes [id number] 1{tbl} Take 1 tablet by mouth in the morning. [facility] bictegrav-e mtricit-ten ofov ala (BIKTARVY) 50-200-25 mg tablet 2022-0 6-08 00:00: 00 Yes [id number] 1{tbl} Take 1 tablet by mouth in the morning. [facility] bictegrav-e mtricit-ten ofov ala (BIKTARVY) 50-200-25 mg tablet 2022-0 6-08 00:00: 00 Yes [id number] 1{tbl} Take 1 tablet by mouth in the morning. [facility] bictegrav-e mtricit-ten ofov ala (BIKTARVY) 50-200-25 mg tablet 2022-0 6-08 00:00: 00 Yes [id number] 1{tbl} Take 1 tablet by mouth in the morning. [facility] bictegrav-e mtricit-ten ofov ala (BIKTARVY) 50-200-25 mg tablet 2022-0 6-08 00:00: 00 Yes [id number] 1{tbl} Take 1 tablet by mouth in the morning. [facility] bictegrav-e mtricit-ten ofov ala (BIKTARVY) 50-200-25 mg tablet 2022-0 6- 00:00: 00 Yes [id number] 1{tbl} Take 1 tablet by mouth in the morning. [facility] bictegrav-e mtricit-ten ofov ala (BIKTARVY) 50-200-25 mg tablet 2022-0 608 00:00: 00 08-29 00:00 :00 No [id number] 1{tbl} Take 1 tablet by mouth in the morning. [facility] bictegrav-e mtricit-ten ofov ala (BIKTARVY) 50-200-25 mg tablet 2022-0 6-08 00:00: 00 08-29 00:00 :00 No [id number] 1{tbl} Take 1 tablet by mouth in the morning. [facility] bictegrav-e mtricit-ten ofov ala (BIKTARVY) 50-200-25 mg tablet 3-0 6-08 00:00: 00 08-29 00:00 :00 No [id number] 1{tbl} Take 1 tablet by mouth in the morning. [facility] bictegrav-e mtricit-ten ofov ala (BIKTARVY) 50-200-25 mg tablet 2022-0 6-08 00:00: 00 08-29 00:00 :00 No [id number] 1{tbl} Take 1 tablet by mouth in the morning. [facility] bictegrav-e mtricit-ten ofov ala (BIKTARVY) 50-200-25 mg tablet 2022-0 6-08 00:00: 00 08-29 00:00 :00 No [id number] 1{tbl} Take 1 tablet by mouth in the morning. [facility] povidone-io dine (BETADINE SURGICAL SCRUB) 7.5 % Soln 2022-0 6-08 00:00: 00 03-11 00:00 :00 No [id number] 3{bottl e} Apply 3 Bottles to area(s) in the morning. [facility] povidone-io dine (BETADINE SURGICAL SCRUB) 7.5 % Soln 2022-0 6-08 00:00: 00 03-11 00:00 :00 No [id number] 3{bottl e} Apply 3 Bottles to area(s) in the morning. [facility] povidone-io dine (BETADINE SURGICAL SCRUB) 7.5 % Soln 3-0 6-08 00:00: 00 03-11 00:00 :00 No [id number] 3{bottl e} Apply 3 Bottles to area(s) in the morning. [facility] povidone-io dine (BETADINE SURGICAL SCRUB) 7.5 % Soln 3-0 6-08 00:00: 00 03-11 00:00 :00 No [id number] 3{bottl e} Apply 3 Bottles to area(s) in the morning. [facility] bictegrav-e mtricit-ten ofov ala (BIKTARVY) 50-200-25 mg tablet 2021-09 2- 00:00: 00 Yes [id number] 1{tbl} Take 1 tablet by mouth in the morning. [facility] doxycycline monohydrate 100 mg capsule 2021-09 2- 00:00: 00 Yes [id number] 100mg Take 1 capsule by mouth in the morning and 1 capsule in the evening. [facility] bictegrav-e mtricit-ten ofov ala (BIKTARVY) 50-200-25 mg tablet 2021-09 2- 00:00: 00 Yes [id number] 1{tbl} Take 1 tablet by mouth in the morning. [facility] doxycycline monohydrate 100 mg capsule 2021-09 00:00: 00 Yes [id number] 100mg Take 1 capsule by mouth in the morning and 1 capsule in the evening. [facility] bictegrav-e mtricit-ten ofov ala (BIKTARVY) 50-200-25 mg tablet 2021-09 00:00: 00 Yes [id number] 1{tbl} Take 1 tablet by mouth in the morning. [facility] doxycycline monohydrate 100 mg capsule 2021-09 00:00: 00 Yes [id number] 100mg Take 1 capsule by mouth in the morning and 1 capsule in the evening. [facility] bictegrav-e mtricit-ten ofov ala (BIKTARVY) 50-200-25 mg tablet 2021-09 2- 00:00: 00 Yes [id number] 1{tbl} Take 1 tablet by mouth in the morning. [facility] doxycycline monohydrate 100 mg capsule 2021-09 2- 00:00: 00 Yes [id number] 100mg Take 1 capsule by mouth in the morning and 1 capsule in the evening. [facility] bictegrav-e mtricit-ten ofov ala (BIKTARVY) 50-200-25 mg tablet 2021-09 2- 00:00: 00 Yes [id number] 1{tbl} Take 1 tablet by mouth in the morning. [facility] doxycycline monohydrate 100 mg capsule 2021-09 2- 00:00: 00 Yes [id number] 100mg Take 1 capsule by mouth in the morning and 1 capsule in the evening. [facility] bictegrav-e mtricit-ten ofov ala (BIKTARVY) 50-200-25 mg tablet 2021-09 2- 00:00: 00 Yes [id number] 1{tbl} Take 1 tablet by mouth in the morning. [facility] doxycycline monohydrate 100 mg capsule 2021-09- 00:00: 00 Yes [id number] 100mg Take 1 capsule by mouth in the morning and 1 capsule in the evening. [facility] bictegrav-e mtricit-ten ofov ala (BIKTARVY) 50-200-25 mg tablet 2021-09 2- 00:00: 00 Yes [id number] 1{tbl} Take 1 tablet by mouth in the morning. [facility] doxycycline monohydrate 100 mg capsule 2021-09 00:00: 00 Yes [id number] 100mg Take 1 capsule by mouth in the morning and 1 capsule in the evening. [facility] bictegrav-e mtricit-ten ofov ala (BIKTARVY) 50-200-25 mg tablet 2021-09 00:00: 00 Yes [id number] 1{tbl} Take 1 tablet by mouth in the morning. [facility] doxycycline monohydrate 100 mg capsule 2021-09 2- 00:00: 00 Yes [id number] 100mg Take 1 capsule by mouth in the morning and 1 capsule in the evening. [facility] bictegrav-e mtricit-ten ofov ala (BIKTARVY) 50-200-25 mg tablet 2021-09 2- 00:00: 00 Yes [id number] 1{tbl} Take 1 tablet by mouth in the morning. [facility] doxycycline monohydrate 100 mg capsule 2021-09 2- 00:00: 00 Yes [id number] 100mg Take 1 capsule by mouth in the morning and 1 capsule in the evening. [facility] bictegrav-e mtricit-ten ofov ala (BIKTARVY) 50-200-25 mg tablet 2021-09 2-15 00:00: 00 Yes [id number] 1{tbl} Take 1 tablet by mouth in the morning. [facility] doxycycline monohydrate 100 mg capsule 2021-09 2- 00:00: 00 Yes [id number] 100mg Take 1 capsule by mouth in the morning and 1 capsule in the evening. [facility] bictegrav-e mtricit-ten ofov ala (BIKTARVY) 50-200-25 mg tablet 2021-09 2- 00:00: 00 Yes [id number] 1{tbl} Take 1 tablet by mouth in the morning. [facility] doxycycline monohydrate 100 mg capsule 2021-09- 00:00: 00 Yes [id number] 100mg Take 1 capsule by mouth in the morning and 1 capsule in the evening. [facility] bictegrav-e mtricit-ten ofov ala (BIKTARVY) 50-200-25 mg tablet 2021-09 00:00: 00 Yes [id number] 1{tbl} Take 1 tablet by mouth in the morning. [facility] doxycycline monohydrate 100 mg capsule 2021-09 00:00: 00 Yes [id number] 100mg Take 1 capsule by mouth in the morning and 1 capsule in the evening. [facility] bictegrav-e mtricit-ten ofov ala (BIKTARVY) 50-200-25 mg tablet 2021-09 2-15 00:00: 00 Yes [id number] 1{tbl} Take 1 tablet by mouth in the morning. [facility] doxycycline monohydrate 100 mg capsule 2021-09 2-15 00:00: 00 Yes [id number] 100mg Take 1 capsule by mouth in the morning and 1 capsule in the evening. [facility] bictegrav-e mtricit-ten ofov ala (BIKTARVY) 50-200-25 mg tablet 2021-09 2-15 00:00: 00 Yes [id number] 1{tbl} Take 1 tablet by mouth in the morning. [facility] doxycycline monohydrate 100 mg capsule 2021-09 2- 00:00: 00 Yes [id number] 100mg Take 1 capsule by mouth in the morning and 1 capsule in the evening. [facility] bictegrav-e mtricit-ten ofov ala (BIKTARVY) 50-200-25 mg tablet 2021-09 2- 00:00: 00 Yes [id number] 1{tbl} Take 1 tablet by mouth in the morning. [facility] doxycycline monohydrate 100 mg capsule 2021-09 00:00: 00 Yes [id number] 100mg Take 1 capsule by mouth in the morning and 1 capsule in the evening. [facility] bictegrav-e mtricit-ten ofov ala (BIKTARVY) 50-200-25 mg tablet 2021-09 00:00: 00 Yes [id number] 1{tbl} Take 1 tablet by mouth in the morning. [facility] doxycycline monohydrate 100 mg capsule 2021-09 00:00: 00 Yes [id number] 100mg Take 1 capsule by mouth in the morning and 1 capsule in the evening. [facility] bictegrav-e mtricit-ten ofov ala (BIKTARVY) 50-200-25 mg tablet 2021-09 00:00: 00 Yes [id number] 1{tbl} Take 1 tablet by mouth in the morning. [facility] doxycycline monohydrate 100 mg capsule 2021-09- 00:00: 00 Yes [id number] 100mg Take 1 capsule by mouth in the morning and 1 capsule in the evening. [facility] bictegrav-e mtricit-ten ofov ala (BIKTARVY) 50-200-25 mg tablet 2021-09- 00:00: 00 Yes [id number] 1{tbl} Take 1 tablet by mouth in the morning. [facility] doxycycline monohydrate 100 mg capsule 2021-09 2- 00:00: 00 Yes [id number] 100mg Take 1 capsule by mouth in the morning and 1 capsule in the evening. [facility] bictegrav-e mtricit-ten ofov ala (BIKTARVY) 50-200-25 mg tablet 2021-09 2-15 00:00: 00 Yes [id number] 1{tbl} Take 1 tablet by mouth in the morning. [facility] doxycycline monohydrate 100 mg capsule 2021-09- 00:00: 00 Yes [id number] 100mg Take 1 capsule by mouth in the morning and 1 capsule in the evening. [facility] doxycycline monohydrate 100 mg capsule 2021-09 00:00: 00 Yes [id number] 100mg Take 1 capsule by mouth in the morning and 1 capsule in the evening. [facility] doxycycline monohydrate 100 mg capsule 2021-09 00:00: 00 03-09 00:00 :00 No [id number] 100mg Take 1 capsule by mouth in the morning and 1 capsule in the evening. [facility] doxycycline monohydrate 100 mg capsule 2021-09 00:00: 00 03-09 00:00 :00 No [id number] 100mg Take 1 capsule by mouth in the morning and 1 capsule in the evening. [facility] doxycycline monohydrate 100 mg capsule 2021-09 00:00: 00 03-09 00:00 :00 No [id number] 100mg Take 1 capsule by mouth in the morning and 1 capsule in the evening. [facility] doxycycline monohydrate 100 mg capsule 2021-09- 00:00: 00 03-09 00:00 :00 No [id number] 100mg Take 1 capsule by mouth in the morning and 1 capsule in the evening. [facility] bictegrav-e mtricit-ten ofov ala (BIKTARVY) 50-200-25 mg tablet 2021-09 2-15 00:00: 00 02-17 00:00 :00 No [id number] 1{tbl} Take 1 tablet by mouth in the morning. [facility] bictegrav-e mtricit-ten ofov ala (BIKTARVY) 50-200-25 mg tablet 2021-09 2- 00:00: 00 02-17 00:00 :00 No [id number] 1{tbl} Take 1 tablet by mouth in the morning. [facility] bictegrav-e mtricit-ten ofov ala (BIKTARVY) 50-200-25 mg tablet 2021-09- 00:00: 00 02-17 00:00 :00 No [id number] 1{tbl} Take 1 tablet by mouth in the morning. [facility] doxycycline monohydrate 100 mg capsule 2021-09 00:00: 00 08-26 00:00 :00 No [id number] 100mg Take 1 capsule by mouth in the morning and 1 capsule in the evening. [facility] doxycycline monohydrate 100 mg capsule 2021-09 00:00: 00 08-26 00:00 :00 No [id number] 100mg Take 1 capsule by mouth in the morning and 1 capsule in the evening. [facility] doxycycline monohydrate 100 mg capsule 2021-09 00:00: 00 08-26 00:00 :00 No [id number] 100mg Take 1 capsule by mouth in the morning and 1 capsule in the evening. [facility] amoxicillin -clavulanat e 875-125 mg per tablet 2021-09 00:00: 00 Yes [id number] 1{tbl} Take 1 tablet by mouth every 12 (twelve) hours. [facility] amoxicillin -clavulanat e 875-125 mg per tablet 2021-09 00:00: 00 Yes [id number] 1{tbl} Take 1 tablet by mouth every 12 (twelve) hours. [facility] amoxicillin -clavulanat e 875-125 mg per tablet 2021-09 00:00: 00 Yes [id number] 1{tbl} Take 1 tablet by mouth every 12 (twelve) hours. [facility] amoxicillin -clavulanat e 875-125 mg per tablet 2021-09 00:00: 00 Yes [id number] 1{tbl} Take 1 tablet by mouth every 12 (twelve) hours. [facility] amoxicillin -clavulanat e 875-125 mg per tablet 2021-09 2 00:00: 00 Yes [id number] 1{tbl} Take 1 tablet by mouth every 12 (twelve) hours. [facility] 875-125 mg per tablet 2021-09 2 00:00: 00 Yes [id number] 1{tbl} Take 1 tablet by mouth every 12 (twelve) hours. [facility] -[facility]avulanat [facility] 875-125 mg per tablet 2021-09 00:00: 00 Yes [id number] 1{tbl} Take 1 tablet by mouth every 12 (twelve) hours. [facility] amoxicillin -clavulanat e 875-125 mg per tablet 2021-09 00:00: 00 Yes [id number] 1{tbl} Take 1 tablet by mouth every 12 (twelve) hours. [facility] amoxicillin -clavulanat e 875-125 mg per tablet 2021-09 00:00: 00 Yes [id number] 1{tbl} Take 1 tablet by mouth every 12 (twelve) hours. [facility] amoxicillin -clavulanat e 875-125 mg per tablet 2021-09 2 00:00: 00 Yes [id number] 1{tbl} Take 1 tablet by mouth every 12 (twelve) hours. [facility] amoxicillin -clavulanat e 875-125 mg per tablet 2021-09 2 00:00: 00 Yes [id number] 1{tbl} Take 1 tablet by mouth every 12 (twelve) hours. [facility] amoxicillin -clavulanat e 875-125 mg per tablet 2021-09 2 00:00: 00 Yes [id number] 1{tbl} Take 1 tablet by mouth every 12 (twelve) hours. [facility] amoxicillin -clavulanat e 875-125 mg per tablet 2021-09 2 00:00: 00 Yes [id number] 1{tbl} Take 1 tablet by mouth every 12 (twelve) hours. [facility] amoxicillin -clavulanat e 875-125 mg per tablet 2021-09 2 00:00: 00 Yes [id number] 1{tbl} Take 1 tablet by mouth every 12 (twelve) hours. [facility] amoxicillin -clavulanat e 875-125 mg per tablet 2021-09 2 00:00: 00 Yes [id number] 1{tbl} Take 1 tablet by mouth every 12 (twelve) hours. [facility] amoxicillin -clavulanat e 875-125 mg per tablet 2021-09 00:00: 00 Yes [id number] 1{tbl} Take 1 tablet by mouth every 12 (twelve) hours. [facility] amoxicillin -clavulanat e 875-125 mg per tablet 2021-09 00:00: 00 Yes [id number] 1{tbl} Take 1 tablet by mouth every 12 (twelve) hours. [facility] amoxicillin -clavulanat e 875-125 mg per tablet 2021-09 00:00: 00 Yes [id number] 1{tbl} Take 1 tablet by mouth every 12 (twelve) hours. [facility] amoxicillin -clavulanat e 875-125 mg per tablet 2021-09 2 00:00: 00 Yes [id number] 1{tbl} Take 1 tablet by mouth every 12 (twelve) hours. [facility] amoxicillin -clavulanat e 875-125 mg per tablet 2021-09 2 00:00: 00 Yes [id number] 1{tbl} Take 1 tablet by mouth every 12 (twelve) hours. [facility] amoxicillin -clavulanat e 875-125 mg per tablet 2021-09 2 00:00: 00 Yes [id number] 1{tbl} Take 1 tablet by mouth every 12 (twelve) hours. [facility] amoxicillin -clavulanat e 875-125 mg per tablet 2021-09 2 00:00: 00 Yes [id number] 1{tbl} Take 1 tablet by mouth every 12 (twelve) hours. [facility] 875-125 mg per tablet 2021-09 2 00:00: 00 Yes [id number] 1{tbl} Take 1 tablet by mouth every 12 (twelve) hours. [facility] amoxicillin -clavulanat e 875-125 mg per tablet 2021-09 2 00:00: 00 Yes [id number] 1{tbl} Take 1 tablet by mouth every 12 (twelve) hours. [facility] -[facility]ulan[facility] 875-125 mg per tablet 2021-09 00:00: 00 Yes [id number] 1{tbl} Take 1 tablet by mouth every 12 (twelve) hours. [facility] amoxicillin -clavulanat e 875-125 mg per tablet 2021-09 00:00: 00 Yes [id number] 1{tbl} Take 1 tablet by mouth every 12 (twelve) hours. [facility] amoxicillin -clavulanat e 875-125 mg per tablet 2021-09 00:00: 00 Yes [id number] 1{tbl} Take 1 tablet by mouth every 12 (twelve) hours. [facility] amoxicillin -clavulanat e 875-125 mg per tablet 2021-09 00:00: 00 Yes [id number] 1{tbl} Take 1 tablet by mouth every 12 (twelve) hours. [facility] amoxicillin -clavulanat e 875-125 mg per tablet 2021-09 2 00:00: 00 Yes [id number] 1{tbl} Take 1 tablet by mouth every 12 (twelve) hours. [facility] amoxicillin -clavulanat e 875-125 mg per tablet 2021-09 2 00:00: 00 Yes [id number] 1{tbl} Take 1 tablet by mouth every 12 (twelve) hours. [facility] -[facility]an[facility] 875-125 mg per tablet 2021-09 2 00:00: 00 Yes [id number] 1{tbl} Take 1 tablet by mouth every 12 (twelve) hours. [facility] amoxicillin -clavulanat e 875-125 mg per tablet 2021-09 2 00:00: 00 Yes [id number] 1{tbl} Take 1 tablet by mouth every 12 (twelve) hours. [facility] amoxicillin -clavulanat e 875-125 mg per tablet 2021-09 2 00:00: 00 03-09 00:00 :00 No [id number] 1{tbl} Take 1 tablet by mouth every 12 (twelve) hours. [facility] [facility] am[facility] -clavulanat e 875-125 mg per tablet 2021-09 2 00:00: 00 03-09 00:00 :00 No [id number] 1{tbl} Take 1 tablet by mouth every 12 (twelve) hours. [facility] amoxicillin -clavulanat e 875-125 mg per tablet 2021-09 00:00: 00 03-09 00:00 :00 No [id number] 1{tbl} Take 1 tablet by mouth every 12 (twelve) hours. [facility] amoxicillin -clavulanat e 875-125 mg per tablet 2021-09 00:00: 00 03-09 00:00 :00 No [id number] 1{tbl} Take 1 tablet by mouth every 12 (twelve) hours. [facility] vancomycin (VANCOCIN) 1,000 mg in NaCl 0.9% (NS) 250 mL VIAL-MATE IV piggyback 2021-09 01:30: 00 Yes [id number] 1000mg 1,000 mg, IV Piggyback, Q12H ABX, First dose on 08/08/22 at 1930, Until Discontinu ed, Administer over 60 Minutes, 250 mL
Reas on for Anti-Infec tive: Empiric Therapy for Suspected Infection< br>Empiric Therapy Site: Skin / Soft tissue
Duration of therapy: 72 hours [facility] piperacilli n-tazobacta m (ZOSYN) 3.375 g in NaCl 0.9% (NS) 50 mL MINI-BAG 2021-09 01:30: 00 08-14 01:29 :00 No [id number] 3.375g 3.375 g, IV Piggyback, Q8H ABX, 15 doses, First dose on Tue08/08/22 at 1930, Last dose on Tue08/13/22 at 1130, Administer over 4 Hours, 50 mL
Reas on for Anti-Infec tive: Empiric Therapy for Suspected Infection< br>Empiric Therapy Site: Skin / Soft tissue
Duration of therapy: 72 hours [facility] piperacilli n-tazobacta m (ZOSYN) 3.375 g in NaCl 0.9% (NS) 50 mL MINI-BAG 2021-09 01:15: 00 08-09 01:59 :00 No [id number] 3.375g 3.375 g, IV Piggyback, ONCE, 1 dose, On Tue08/08/22 at 1915, Administer over 30 Minutes, 50 mL
Reas on for Anti-Infec tive: Empiric Therapy for Suspected Infection< br>Empiric Therapy Site: Skin / Soft tissue
Duration of therapy: 72 hours [facility] NaCl 0.9% (NS) bolus infusion 2,421 mL 2021-09 01:15: 00 08-09 03:28 :00 No [id number] 30mL/kg at 999 mL/hr, 2,421 mL (30 mL/kg ?80.7 kg), IV Piggyback, ONCE, 1 dose, On Tue08/08/22 at 1915, STAT [facility] amoxicillin -clavulanat e 875-125 mg per tablet 2021-09 00:00: 00 Yes [id number] 1{tbl} Take 1 tablet by mouth every 12 (twelve) hours. [facility] chlorhexidi ne 4 % external liquid 2021-09 00:00: 00 Yes [id number] Apply to area(s) once daily as needed for Wound care. [facility] amoxicillin -clavulanat e 875-125 mg per tablet 2021-09 00:00: 00 Yes [id number] 1{tbl} Take 1 tablet by mouth every 12 (twelve) hours. [facility] chlorhexidi ne 4 % external liquid 2021-09 00:00: 00 Yes [id number] Apply to area(s) once daily as needed for Wound care. [facility] amoxicillin -clavulanat e 875-125 mg per tablet 2021-09 00:00: 00 Yes [id number] 1{tbl} Take 1 tablet by mouth every 12 (twelve) hours. [facility] chlorhexidi ne 4 % external liquid 2021-09 00:00: 00 Yes [id number] Apply to area(s) once daily as needed for Wound care. [facility] amoxicillin -clavulanat e 875-125 mg per tablet 2021-09 00:00: 00 Yes [id number] 1{tbl} Take 1 tablet by mouth every 12 (twelve) hours. [facility] chlorhexidi ne 4 % external liquid 2021-09 00:00: 00 Yes [id number] Apply to area(s) once daily as needed for Wound care. [facility] amoxicillin -clavulanat e 875-125 mg per tablet 2021-09 00:00: 00 Yes [id number] 1{tbl} Take 1 tablet by mouth every 12 (twelve) hours. [facility] chlorhexidi ne 4 % external liquid 2021-09 00:00: 00 Yes [id number] Apply to area(s) once daily as needed for Wound care. [facility] amoxicillin -clavulanat e 875-125 mg per tablet 2021-09 00:00: 00 Yes [id number] 1{tbl} Take 1 tablet by mouth every 12 (twelve) hours. [facility] chlorhexidi ne 4 % external liquid 2021-09 00:00: 00 Yes [id number] Apply to area(s) once daily as needed for Wound care. [facility] chlorhexidi ne 4 % external liquid 2021-09 00:00: 00 Yes [id number] Apply to area(s) once daily as needed for Wound care. [facility] chlorhexidi ne 4 % external liquid 2021-09 00:00: 00 Yes [id number] Apply to area(s) once daily as needed for Wound care. [facility] 4 % external liquid 2021-09 00:00: 00 Yes [id number] Apply to area(s) once daily as needed for Wound care. [facility] chlorhexidi ne 4 % external liquid 2021-09 00:00: 00 Yes [id number] Apply to area(s) once daily as needed for Wound care. [facility] chlor[facility] 4 % external liquid 2021-09 00:00: 00 Yes [id number] Apply to area(s) once daily as needed for Wound care. [facility] chlorhexidi ne 4 % external liquid 2021-09 00:00: 00 Yes [id number] Apply to area(s) once daily as needed for Wound care. [facility] chlorhexidi ne 4 % external liquid 2021-09 00:00: 00 Yes [id number] Apply to area(s) once daily as needed for Wound care. [facility] chlorhexidi ne 4 % external liquid 2021-09 00:00: 00 Yes [id number] Apply to area(s) once daily as needed for Wound care. [facility] chlorhexidi ne 4 % external liquid 2021-09 00:00: 00 Yes [id number] Apply to area(s) once daily as needed for Wound care. [facility] chlorhexidi ne 4 % external liquid 2021-09 00:00: 00 Yes [id number] Apply to area(s) once daily as needed for Wound care. [facility] chlorhexidi ne 4 % external liquid 2021-09 00:00: 00 Yes [id number] Apply to area(s) once daily as needed for Wound care. [facility] chlorhexidi ne 4 % external liquid 2021-09 00:00: 00 Yes [id number] Apply to area(s) once daily as needed for Wound care. [facility] chlorhexidi ne 4 % external liquid 2021-09 00:00: 00 Yes [id number] Apply to area(s) once daily as needed for Wound care. [facility] chlorhexidi ne 4 % external liquid 2021-09 00:00: 00 Yes [id number] Apply to area(s) once daily as needed for Wound care. [facility] chlorhexidi ne 4 % external liquid 2021-09 00:00: 00 Yes [id number] Apply to area(s) once daily as needed for Wound care. [facility] chlorhexidi ne 4 % external liquid 2021-09 00:00: 00 Yes [id number] Apply to area(s) once daily as needed for Wound care. [facility] chlorhexidi ne 4 % external liquid 2021-09 00:00: 00 Yes [id number] Apply to area(s) once daily as needed for Wound care. [facility] chlorhexidi ne 4 % external liquid 2021-09 00:00: 00 Yes [id number] Apply to area(s) once daily as needed for Wound care. [facility] chlorhexidi ne 4 % external liquid 2021-09 00:00: 00 Yes [id number] Apply to area(s) once daily as needed for Wound care. [facility] chlorhexidi ne 4 % external liquid 2021-09 00:00: 00 Yes [id number] Apply to area(s) once daily as needed for Wound care. [facility] chlorhexidi ne 4 % external liquid 2021-09 00:00: 00 Yes [id number] Apply to area(s) once daily as needed for Wound care. [facility] chlorhexidi ne 4 % external liquid 2021-09 00:00: 00 Yes [id number] Apply to area(s) once daily as needed for Wound care. [facility] chlorhexidi ne 4 % external liquid 2021-10-08 00:00: 00 Yes [id number] Apply to area(s) once daily as needed for Wound care. [facility] chlor[facility] ne 4 % external liquid 2021-09 00:00: 00 Yes [id number] Apply to area(s) once daily as needed for Wound care. [facility] chlorhexidi ne 4 % external liquid 2021-09 00:00: 00 Yes [id number] Apply to area(s) once daily as needed for Wound care. [facility] chlor[facility]idi ne 4 % external liquid 2021-09 00:00: 00 Yes [id number] Apply to area(s) once daily as needed for Wound care. [facility] chlor[facility]idi ne 4 % external liquid 2021-09 00:00: 00 Yes [id number] Apply to area(s) once daily as needed for Wound care. [facility] chlorhexidi ne 4 % external liquid 2021-09 00:00: 00 Yes [id number] Apply to area(s) once daily as needed for Wound care. [facility] chlorhexidi ne 4 % external liquid 2021-09 00:00: 00 Yes [id number] Apply to area(s) once daily as needed for Wound care. [facility] chlorhexidi ne 4 % external liquid 2021-09 00:00: 00 Yes [id number] Apply to area(s) once daily as needed for Wound care. [facility] chlorhexidi ne 4 % external liquid 2021-09 00:00: 00 Yes [id number] Apply to area(s) once daily as needed for Wound care. [facility] chlorhexidi ne 4 % external liquid 2021-09 00:00: 00 Yes [id number] Apply to area(s) once daily as needed for Wound care. [facility] chlorhexidi ne 4 % external liquid 2021-09 00:00: 00 03-11 00:00 :00 No [id number] Apply to area(s) once daily as needed for Wound care. [facility] chlorhexidi ne 4 % external liquid 2021-09 00:00: 00 03-11 00:00 :00 No [id number] Apply to area(s) once daily as needed for Wound care. [facility] chlorhexidi ne 4 % external liquid 2021-09 00:00: 00 03-11 00:00 :00 No [id number] Apply to area(s) once daily as needed for Wound care. [facility] chlorhexidi ne 4 % external liquid 2021-09 00:00: 03-11 00:00 :00 No [id number] Apply to area(s) once daily as needed for Wound care. [facility] amoxicillin -clavulanat e 875-125 mg per tablet 2021-09 00:00: 00 08-16 00:00 :00 No [id number] 1{tbl} Take 1 tablet by mouth every 12 (twelve) hours. [facility] amoxicillin -clavulanat e 875-125 mg per tablet 2021-09 00:00: 00 08-16 00:00 :00 No [id number] 1{tbl} Take 1 tablet by mouth every 12 (twelve) hours. [facility] penicillin g benzathine (BICILLIN L-A) injection 2.4 Million Units 04-05 19:15: 00 04-05 18:10 :00 No [id number] 2.410 [facility] penicillin g benzathine (BICILLIN L-A) injection 2.4 Million Units 04-05 19:15: 00 04-05 18:10 :00 No [id number] 2.410 2.4 Million Units, Intramuscu lar, ONCE, 1 dose, On Tue04/05/22 at 1415, FLORI
Re ason for Anti-Infec tive: Documented Infection< br>Documen lars Infection Site: Blood
D uration of Therapy: Other (see Comments) [facility] penicillin g benzathine (BICILLIN L-A) injection 2.4 Million Units 03-29 18:45: 00 03-29 17:31 :00 No [id number] 2.410 [facility] penicillin g benzathine (BICILLIN L-A) injection 2.4 Million Units 03-29 18:45: 00 03-29 17:31 :00 No [id number] 2.410 2.4 Million Units, Intramuscu lar, ONCE, 1 dose, On Tue03/29/22 at 1345, FLORI
Re ason for Anti-Infec tive: Documented Infection< br>Documen lars Infection Site: Blood
D uration of Therapy: Other (see Comments) [facility] penicillin g benzathine (BICILLIN L-A) injection 2.4 Million Units 03-22 20:15: 00 03-22 19:03 :00 No [id number] 2.410 [facility] penicillin g benzathine (BICILLIN L-A) injection 2.4 Million Units 03-22 20:15: 00 03-22 19:03 :00 No [id number] 2.410 2.4 Million Units, Intramuscu lar, ONCE, 1 dose, On Tue03/22/22 at 1515, FLORI
Re ason for Anti-Infec tive: Documented Infection< br>Documen lars Infection Site: Blood
D uration of Therapy: Other (see Comments) [facility] bictegrav-e mtricit-ten ofov ala (BIKTARVY) 50-200-25 mg tablet 01-14 00:00: 00 Yes [id number] 1{tbl} Take 1 tablet by mouth daily. [facility] doxycycline hyclate 100 mg capsule 01-14 00:00: 00 Yes [id number] 100mg Take 1 capsule by mouth every 12 (twelve) hours. [facility] chlorhexidi ne 4 % external liquid 01-14 00:00: 00 Yes [id number] Apply to area(s) once daily as needed for Wound care. [facility] bictegrav-e mtricit-ten ofov ala (BIKTARVY) 50-200-25 mg tablet 2022-0 5-05 00:00: 00 Yes [id number] 1{tbl} Take 1 tablet by mouth daily. [facility] chlorhexidi ne 4 % external liquid 2022-0 5-05 00:00: 00 Yes [id number] Apply to area(s) once daily as needed for Wound care. [facility] bictegrav-e mtricit-ten ofov ala (BIKTARVY) 50-200-25 mg tablet 2022-0 5-05 00:00: 00 Yes [id number] 1{tbl} Take 1 tablet by mouth daily. [facility] chlorhexidi ne 4 % external liquid 2022-0 5-05 00:00: 00 Yes [id number] Apply to area(s) once daily as needed for Wound care. [facility] bictegrav-e mtricit-ten ofov ala (BIKTARVY) 50-200-25 mg tablet 2022-0 5-05 00:00: 00 Yes [id number] 1{tbl} Take 1 tablet by mouth daily. [facility] chlorhexidi ne 4 % external liquid 2022-0 5-05 00:00: 00 Yes [id number] Apply to area(s) once daily as needed for Wound care. [facility] bictegrav-e mtricit-ten ofov ala (BIKTARVY) 50-200-25 mg tablet 2022-0 5-05 00:00: 00 Yes [id number] 1{tbl} Take 1 tablet by mouth daily. [facility] chlorhexidi ne 4 % external liquid 2022-0 5-05 00:00: 00 Yes [id number] Apply to area(s) once daily as needed for Wound care. [facility] bictegrav-e mtricit-ten ofov ala (BIKTARVY) 50-200-25 mg tablet 2022-0 5-05 00:00: 00 Yes [id number] 1{tbl} Take 1 tablet by mouth daily. [facility] chlorhexidi ne 4 % external liquid 2022-0 5-05 00:00: 00 Yes [id number] Apply to area(s) once daily as needed for Wound care. [facility] bictegrav-e mtricit-ten ofov ala (BIKTARVY) 50-200-25 mg tablet 2-0 5-05 00:00: 00 Yes [id number] 1{tbl} Take 1 tablet by mouth daily. [facility] chlorhexidi ne 4 % external liquid 2021-0 5-05 00:00: 00 Yes [id number] Apply to area(s) once daily as needed for Wound care. [facility] bictegrav-e mtricit-ten ofov ala (BIKTARVY) 50-200-25 mg tablet 2021-0 -05 00:00: 00 Yes [id number] 1{tbl} Take 1 tablet by mouth daily. [facility] chlorhexidi ne 4 % external liquid 2021-0 05 00:00: 00 Yes [id number] Apply to area(s) once daily as needed for Wound care. [facility] bictegrav-e mtricit-ten ofov ala (BIKTARVY) 50-200-25 mg tablet 2021-0 05 00:00: 00 Yes [id number] 1{tbl} Take 1 tablet by mouth daily. [facility] chlorhexidi ne 4 % external liquid 2021-0 05 00:00: 00 Yes [id number] Apply to area(s) once daily as needed for Wound care. [facility] bictegrav-e mtricit-ten ofov ala (BIKTARVY) 50-200-25 mg tablet 2-0 5-05 00:00: 00 Yes [id number] 1{tbl} Take 1 tablet by mouth daily. [facility] bictegrav-e mtricit-ten ofov ala (BIKTARVY) 50-200-25 mg tablet 2-0 5-05 00:00: 00 Yes [id number] 1{tbl} Take 1 tablet by mouth daily. [facility] bictegrav-e mtricit-ten ofov ala (BIKTARVY) 50-200-25 mg tablet 2022-0 5-05 00:00: 00 Yes [id number] 1{tbl} Take 1 tablet by mouth daily. [facility] bictegrav-e mtricit-ten ofov ala (BIKTARVY) 50-200-25 mg tablet 01-14 00:00: 00 Yes [id number] 1{tbl} Take 1 tablet by mouth daily. [facility] bictegrav-e mtricit-ten ofov ala (BIKTARVY) 50-200-25 mg tablet 01-14 00:00: 00 Yes [id number] 1{tbl} Take 1 tablet by mouth daily. [facility] bictegrav-e mtricit-ten ofov ala (BIKTARVY) 50-200-25 mg tablet 01-14 00:00: 00 Yes [id number] 1{tbl} Take 1 tablet by mouth daily. [facility] bictegrav-e mtricit-ten ofov ala (BIKTARVY) 50-200-25 mg tablet 01-14 00:00: 00 Yes [id number] 1{tbl} Take 1 tablet by mouth daily. [facility] bictegrav-e mtricit-ten ofov ala (BIKTARVY) 50-200-25 mg tablet 01-14 00:00: 00 Yes [id number] 1{tbl} Take 1 tablet by mouth daily. [facility] bictegrav-e mtricit-ten ofov ala (BIKTARVY) 50-200-25 mg tablet 01-14 00:00: 00 Yes [id number] 1{tbl} Take 1 tablet by mouth daily. [facility] bictegrav-e mtricit-ten ofov ala (BIKTARVY) 50-200-25 mg tablet 01-14 00:00: 00 Yes [id number] 1{tbl} Take 1 tablet by mouth daily. [facility] bictegrav-e mtricit-ten ofov ala (BIKTARVY) 50-200-25 mg tablet 01-14 00:00: 00 Yes [id number] 1{tbl} Take 1 tablet by mouth daily. [facility] bictegrav-e mtricit-ten ofov ala (BIKTARVY) 50-200-25 mg tablet 01-14 00:00: 00 Yes [id number] 1{tbl} Take 1 tablet by mouth daily. [facility] bictegrav-e mtricit-ten ofov ala (BIKTARVY) 50-200-25 mg tablet 01-14 00:00: 00 Yes [id number] 1{tbl} Take 1 tablet by mouth daily. [facility] bictegrav-e mtricit-ten ofov ala (BIKTARVY) 50-200-25 mg tablet 01-14 00:00: 00 Yes [id number] 1{tbl} Take 1 tablet by mouth daily. [facility] bictegrav-e mtricit-ten ofov ala (BIKTARVY) 50-200-25 mg tablet 01-14 00:00: 00 Yes [id number] 1{tbl} Take 1 tablet by mouth daily. [facility] bictegrav-e mtricit-ten ofov ala (BIKTARVY) 50-200-25 mg tablet 01-14 00:00: 00 Yes [id number] 1{tbl} Take 1 tablet by mouth daily. [facility] bictegrav-e mtricit-ten ofov ala (BIKTARVY) 50-200-25 mg tablet 01-14 00:00: 00 Yes [id number] 1{tbl} Take 1 tablet by mouth daily. [facility] bictegrav-e mtricit-ten ofov ala (BIKTARVY) 50-200-25 mg tablet 01-14 00:00: 00 Yes [id number] 1{tbl} Take 1 tablet by mouth daily. [facility] bictegrav-e mtricit-ten ofov ala (BIKTARVY) 50-200-25 mg tablet 01-14 00:00: 08-26 00:00 :00 No [id number] 1{tbl} Take 1 tablet by mouth daily. [facility] bictegrav-e mtricit-jessie pérez ala (BIKTARVY) 50-200-25 mg tablet 05 00:00: 00 08-26 00:00 :00 No [id number] 1{tbl} Take 1 tablet by mouth daily. [facility] bictegrav-e mtricit-ten ofjohnie ala (BIKTARVY) 50-200-25 mg tablet 05 00:00: 00 08-26 00:00 :00 No [id number] 1{tbl} Take 1 tablet by mouth daily. [facility] chlorhexidi ne 4 % external liquid 01-14 00:00: 00 08-08 00:00 :00 No [id number] Apply to area(s) once daily as needed for Wound care. [facility] doxycycline hyclate 100 mg capsule 01-14 00:00: 00 03-29 00:00 :00 No [id number] 100mg Take 1 capsule by mouth every 12 (twelve) hours. [facility] ATORVASTATI N 40 mg tablet 03-08 00:00: 00 Yes [id number] 40mg TAKE 1 TABLET BY MOUTH AT BEDTIME. [facility] ATORVASTATI N 40 mg tablet 03-08 00:00: 00 Yes [id number] 40mg TAKE 1 TABLET BY MOUTH AT BEDTIME. [facility] ATORVASTATI N 40 mg tablet 03-08 00:00: 00 Yes [id number] 40mg TAKE 1 TABLET BY MOUTH AT BEDTIME. [facility] ATORVASTATI N 40 mg tablet 03-08 00:00: 00 Yes [id number] 40mg TAKE 1 TABLET BY MOUTH AT BEDTIME. [facility] ATORVASTATI N 40 mg tablet 03-08 00:00: 00 Yes [id number] 40mg TAKE 1 TABLET BY MOUTH AT BEDTIME. [facility] ATORVASTATI N 40 mg tablet 03-08 00:00: 00 Yes [id number] 40mg TAKE 1 TABLET BY MOUTH AT BEDTIME. [facility] ATORVASTATI N 40 mg tablet 03-08 00:00: 00 Yes [id number] 40mg TAKE 1 TABLET BY MOUTH AT BEDTIME. [facility] ATORVASTATI N 40 mg tablet 03-08 00:00: 00 Yes [id number] 40mg TAKE 1 TABLET BY MOUTH AT BEDTIME. [facility] ATORVASTATI N 40 mg tablet 03-08 00:00: 00 Yes [id number] 40mg TAKE 1 TABLET BY MOUTH AT BEDTIME. [facility] ATORVASTATI N 40 mg tablet 03-08 00:00: 00 Yes [id number] 40mg TAKE 1 TABLET BY MOUTH AT BEDTIME. [facility] ATORVASTATI N 40 mg tablet 03-08 00:00: 00 Yes [id number] 40mg TAKE 1 TABLET BY MOUTH AT BEDTIME. [facility] ATORVASTATI N 40 mg tablet 03-08 00:00: 00 Yes [id number] 40mg TAKE 1 TABLET BY MOUTH AT BEDTIME. [facility] ATORVASTATI N 40 mg tablet 03-08 00:00: 00 Yes [id number] 40mg TAKE 1 TABLET BY MOUTH AT BEDTIME. [facility] ATORVASTATI N 40 mg tablet 03-08 00:00: 00 Yes [id number] 40mg TAKE 1 TABLET BY MOUTH AT BEDTIME. [facility] ATORVASTATI N 40 mg tablet 03-08 00:00: 00 Yes [id number] 40mg TAKE 1 TABLET BY MOUTH AT BEDTIME. [facility] ATORVASTATI N 40 mg tablet 03-08 00:00: 00 Yes [id number] 40mg TAKE 1 TABLET BY MOUTH AT BEDTIME. [facility] ATORVASTATI N 40 mg tablet 03-08 00:00: 00 Yes [id number] 40mg TAKE 1 TABLET BY MOUTH AT BEDTIME. [facility] ATORVASTATI N 40 mg tablet 03-08 00:00: 00 Yes [id number] 40mg TAKE 1 TABLET BY MOUTH AT BEDTIME. [facility] ATORVASTATI N 40 mg tablet 03-08 00:00: 00 Yes [id number] 40mg TAKE 1 TABLET BY MOUTH AT BEDTIME. [facility] ATORVASTATI N 40 mg tablet 03-08 00:00: 00 Yes [id number] 40mg TAKE 1 TABLET BY MOUTH AT BEDTIME. [facility] ATORVASTATI N 40 mg tablet 03-08 00:00: 00 Yes [id number] 40mg TAKE 1 TABLET BY MOUTH AT BEDTIME. [facility] ATORVASTATI N 40 mg tablet 03-08 00:00: 00 Yes [id number] 40mg TAKE 1 TABLET BY MOUTH AT BEDTIME. [facility] ATORVASTATI N 40 mg tablet 03-08 00:00: 00 Yes [id number] 40mg TAKE 1 TABLET BY MOUTH AT BEDTIME. [facility] ATORVASTATI N 40 mg tablet 03-08 00:00: 00 Yes [id number] 40mg TAKE 1 TABLET BY MOUTH AT BEDTIME. [facility] ATORVASTATI N 40 mg tablet 03-08 00:00: 00 Yes [id number] 40mg TAKE 1 TABLET BY MOUTH AT BEDTIME. [facility] ATORVASTATI N 40 mg tablet 03-08 00:00: 00 Yes [id number] 40mg TAKE 1 TABLET BY MOUTH AT BEDTIME. [facility] ATORVASTATI N 40 mg tablet 03-08 00:00: 00 Yes [id number] 40mg TAKE 1 TABLET BY MOUTH AT BEDTIME. [facility] ATORVASTATI N 40 mg tablet 03-08 00:00: 00 Yes [id number] 40mg TAKE 1 TABLET BY MOUTH AT BEDTIME. [facility] ATORVASTATI N 40 mg tablet 03-08 00:00: 00 Yes [id number] 40mg TAKE 1 TABLET BY MOUTH AT BEDTIME. [facility] ATORVASTATI N 40 mg tablet 03-08 00:00: 00 Yes [id number] 40mg TAKE 1 TABLET BY MOUTH AT BEDTIME. [facility] ATORVASTATI N 40 mg tablet 03-08 00:00: 00 Yes [id number] 40mg TAKE 1 TABLET BY MOUTH AT BEDTIME. [facility] ATORVASTATI N 40 mg tablet 03-08 00:00: 00 Yes [id number] 40mg TAKE 1 TABLET BY MOUTH AT BEDTIME. [facility] ATORVASTATI N 40 mg tablet 03-08 00:00: 00 Yes [id number] 40mg TAKE 1 TABLET BY MOUTH AT BEDTIME. [facility] ATORVASTATI N 40 mg tablet 03-08 00:00: 00 Yes [id number] 40mg TAKE 1 TABLET BY MOUTH AT BEDTIME. [facility] ATORVASTATI N 40 mg tablet 03-08 00:00: 00 Yes [id number] 40mg TAKE 1 TABLET BY MOUTH AT BEDTIME. [facility] ATORVASTATI N 40 mg tablet 03-08 00:00: 00 Yes [id number] 40mg TAKE 1 TABLET BY MOUTH AT BEDTIME. [facility] ATORVASTATI N 40 mg tablet 03-08 00:00: 00 Yes [id number] 40mg TAKE 1 TABLET BY MOUTH AT BEDTIME. [facility] ATORVASTATI N 40 mg tablet 03-08 00:00: 00 Yes [id number] 40mg TAKE 1 TABLET BY MOUTH AT BEDTIME. [facility] ATORVASTATI N 40 mg tablet 03-08 00:00: 00 Yes [id number] 40mg TAKE 1 TABLET BY MOUTH AT BEDTIME. [facility] ATORVASTATI N 40 mg tablet 03-08 00:00: 00 Yes [id number] 40mg TAKE 1 TABLET BY MOUTH AT BEDTIME. [facility] ATORVASTATI N 40 mg tablet 03-08 00:00: 00 Yes [id number] 40mg TAKE 1 TABLET BY MOUTH AT BEDTIME. [facility] ATORVASTATI N 40 mg tablet 03-08 00:00: 00 Yes [id number] 40mg TAKE 1 TABLET BY MOUTH AT BEDTIME. [facility] ATORVASTATI N 40 mg tablet 03-08 00:00: 00 Yes [id number] 40mg TAKE 1 TABLET BY MOUTH AT BEDTIME. [facility] ATORVASTATI N 40 mg tablet 03-08 00:00: 00 Yes [id number] 40mg TAKE 1 TABLET BY MOUTH AT BEDTIME. [facility] ATORVASTATI N 40 mg tablet 03-08 00:00: 00 Yes [id number] 40mg TAKE 1 TABLET BY MOUTH AT BEDTIME. [facility] ATORVASTATI N 40 mg tablet 03-08 00:00: 00 Yes [id number] 40mg TAKE 1 TABLET BY MOUTH AT BEDTIME. [facility] ATORVASTATI N 40 mg tablet 03-08 00:00: 00 Yes [id number] 40mg TAKE 1 TABLET BY MOUTH AT BEDTIME. [facility] ATORVASTATI N 40 mg tablet 03-08 00:00: 00 Yes [id number] 40mg TAKE 1 TABLET BY MOUTH AT BEDTIME. [facility] ATORVASTATI N 40 mg tablet 03-08 00:00: 00 Yes [id number] 40mg TAKE 1 TABLET BY MOUTH AT BEDTIME. [facility] ATORVASTATI N 40 mg tablet 03-08 00:00: 00 Yes [id number] 40mg TAKE 1 TABLET BY MOUTH AT BEDTIME. [facility] ATORVASTATI N 40 mg tablet 03-08 00:00: 00 Yes [id number] 40mg TAKE 1 TABLET BY MOUTH AT BEDTIME. [facility] ATORVASTATI N 40 mg tablet 03-08 00:00: 00 Yes [id number] 40mg TAKE 1 TABLET BY MOUTH AT BEDTIME. [facility] ATORVASTATI N 40 mg tablet 03-08 00:00: 00 Yes [id number] 40mg TAKE 1 TABLET BY MOUTH AT BEDTIME. [facility] ATORVASTATI N 40 mg tablet 03-08 00:00: 00 Yes [id number] 40mg TAKE 1 TABLET BY MOUTH AT BEDTIME. [facility] ATORVASTATI N 40 mg tablet 03-08 00:00: 00 Yes [id number] 40mg TAKE 1 TABLET BY MOUTH AT BEDTIME. [facility]VA[facility]I N 40 mg tablet 03-08 00:00: 00 Yes [id number] 40mg TAKE 1 TABLET BY MOUTH AT BEDTIME. [facility] ATORVA[facility]I N 40 mg tablet 03-08 00:00: 00 Yes [id number] 40mg TAKE 1 TABLET BY MOUTH AT BEDTIME. [facility] ATORVASTATI N 40 mg tablet 03-08 00:00: 00 Yes [id number] 40mg TAKE 1 TABLET BY MOUTH AT BEDTIME. [facility] AT[facility]VA[facility]I N 40 mg tablet 03-08 00:00: 00 Yes [id number] 40mg TAKE 1 TABLET BY MOUTH AT BEDTIME. [facility]VA[facility] N 40 mg tablet 03-08 00:00: 00 Yes [id number] 40mg TAKE 1 TABLET BY MOUTH AT BEDTIME. [facility] N 40 mg tablet 03-08 00:00: 00 Yes [id number] 40mg TAKE 1 TABLET BY MOUTH AT BEDTIME. [facility]VA[facility] N 40 mg tablet 03-08 00:00: 00 Yes [id number] 40mg TAKE 1 TABLET BY MOUTH AT BEDTIME. [facility] N 40 mg tablet 03-08 00:00: 00 Yes [id number] 40mg TAKE 1 TABLET BY MOUTH AT BEDTIME. [facility]VA[facility] N 40 mg tablet 03-08 00:00: 00 Yes [id number] 40mg TAKE 1 TABLET BY MOUTH AT BEDTIME. [facility]VA[facility] N 40 mg tablet 03-08 00:00: 00 Yes [id number] 40mg TAKE 1 TABLET BY MOUTH AT BEDTIME. [facility] N 40 mg tablet 03-08 00:00: 00 Yes [id number] 40mg TAKE 1 TABLET BY MOUTH AT BEDTIME. [facility] N 40 mg tablet 03-08 00:00: 00 Yes [id number] 40mg TAKE 1 TABLET BY MOUTH AT BEDTIME. [facility] N 40 mg tablet 03-08 00:00: 00 Yes [id number] 40mg TAKE 1 TABLET BY MOUTH AT BEDTIME. [facility] N 40 mg tablet 03-08 00:00: 00 Yes [id number] 40mg TAKE 1 TABLET BY MOUTH AT BEDTIME. [facility] AT[facility]VA[facility] N 40 mg tablet 03-08 00:00: 00 Yes [id number] 40mg TAKE 1 TABLET BY MOUTH AT BEDTIME. [facility] AT[facility]VA[facility] N 40 mg tablet 03-08 00:00: 00 Yes [id number] 40mg TAKE 1 TABLET BY MOUTH AT BEDTIME. [facility]VA[facility] N 40 mg tablet 03-08 00:00: 00 Yes [id number] 40mg TAKE 1 TABLET BY MOUTH AT BEDTIME. [facility] N 40 mg tablet 03-08 00:00: 00 Yes [id number] 40mg TAKE 1 TABLET BY MOUTH AT BEDTIME. [facility] N 40 mg tablet 03-08 00:00: 00 Yes [id number] 40mg TAKE 1 TABLET BY MOUTH AT BEDTIME. [facility] N 40 mg tablet 03-08 00:00: 00 Yes [id number] 40mg TAKE 1 TABLET BY MOUTH AT BEDTIME. [facility] N 40 mg tablet 03-08 00:00: 00 Yes [id number] 40mg TAKE 1 TABLET BY MOUTH AT BEDTIME. [facility] N 40 mg tablet 03-08 00:00: 00 Yes [id number] 40mg TAKE 1 TABLET BY MOUTH AT BEDTIME. [facility] N 40 mg tablet 03-08 00:00: 00 Yes [id number] 40mg TAKE 1 TABLET BY MOUTH AT BEDTIME. [facility] N 40 mg tablet 03-08 00:00: 00 Yes [id number] 40mg TAKE 1 TABLET BY MOUTH AT BEDTIME. [facility] N 40 mg tablet 03-08 00:00: 00 Yes [id number] 40mg TAKE 1 TABLET BY MOUTH AT BEDTIME. [facility] N 40 mg tablet 03-08 00:00: 00 Yes [id number] 40mg TAKE 1 TABLET BY MOUTH AT BEDTIME. [facility] N 40 mg tablet 03-08 00:00: 00 Yes [id number] 40mg TAKE 1 TABLET BY MOUTH AT BEDTIME. [facility] N 40 mg tablet 03-08 00:00: 00 Yes [id number] 40mg TAKE 1 TABLET BY MOUTH AT BEDTIME. [facility] N 40 mg tablet 03-08 00:00: 00 Yes [id number] 40mg TAKE 1 TABLET BY MOUTH AT BEDTIME. [facility] N 40 mg tablet 03-08 00:00: 00 Yes [id number] 40mg TAKE 1 TABLET BY MOUTH AT BEDTIME. [facility] Immunizations Ordered Immunization Name Filled Immunization Name Date Status Comments Source SARS-COV-2 COVID-19 JOHANA-SUCROSE VACCINE 12 YRS+, BIVALENT 0.3ML, IM, (PFIZER ORTIZ TOP BOOSTER) 2022-08-26 00:00:00 Completed [facility] Influenza Virus Vaccine Quad IM, Preserv and ABX Free 6 MO-64 YRS 2022-08-26 00:00:00 Completed [facility] SARS-COV-2 COVID-19 JOHANA-SUCROSE VACCINE 12 YRS+, BIVALENT 0.3ML, IM, (PFIZER ORTIZ TOP BOOSTER) 2022-08-26 00:00:00 Completed [facility] Influenza Virus Vaccine Quad IM, Preserv and ABX Free 6 MO-64 YRS 2022-08-26 00:00:00 Completed [facility] SARS-COV-2 COVID-19 JOHANA-SUCROSE VACCINE 12 YRS+, BIVALENT 0.3ML, IM, (PFIZER ORTIZ TOP BOOSTER) 2022-08-26 00:00:00 Completed [facility] Influenza Virus Vaccine Quad IM, Preserv and ABX Free 6 MO-64 YRS 2022-08-26 00:00:00 Completed [facility] SARS-COV-2 COVID-19 JOHANA-SUCROSE VACCINE 12 YRS+, BIVALENT 0.3ML, IM, (PFIZER ORTIZ TOP BOOSTER) 2022-08-26 00:00:00 Completed [facility] Influenza Virus Vaccine Quad IM, Preserv and ABX Free 6 MO-64 YRS 2022-08-26 00:00:00 Completed [facility] SARS-COV-2 COVID-19 JOHANA-SUCROSE VACCINE 12 YRS+, BIVALENT 0.3ML, IM, (PFIZER ORTIZ TOP BOOSTER) 2022-08-26 00:00:00 Completed [facility] Influenza Virus Vaccine Quad IM, Preserv and ABX Free 6 MO-64 YRS 2022-08-26 00:00:00 Completed [facility] SARS-COV-2 COVID-19 JOHANA-SUCROSE VACCINE 12 YRS+, BIVALENT 0.3ML, IM, (PFIZER ORTIZ TOP BOOSTER) 2022-08-26 00:00:00 Completed [facility] Influenza Virus Vaccine Quad IM, Preserv and ABX Free 6 MO-64 YRS 2022-08-26 00:00:00 Completed [facility] SARS-COV-2 COVID-19 JOHANA-SUCROSE VACCINE 12 YRS+, BIVALENT 0.3ML, IM, (PFIZER ORTIZ TOP BOOSTER) 2022-08-26 00:00:00 Completed [facility] Influenza Virus Vaccine Quad IM, Preserv and ABX Free 6 MO-64 YRS 2022-08-26 00:00:00 Completed [facility] SARS-COV-2 COVID-19 JOHANA-SUCROSE VACCINE 12 YRS+, BIVALENT 0.3ML, IM, (PFIZER ORTIZ TOP BOOSTER) 2022-08-26 00:00:00 Completed [facility] Influenza Virus Vaccine Quad IM, Preserv and ABX Free 6 MO-64 YRS 2022-08-26 00:00:00 Completed [facility] SARS-COV-2 COVID-19 JOHANA-SUCROSE VACCINE 12 YRS+, BIVALENT 0.3ML, IM, (PFIZER ORTIZ TOP BOOSTER) 2022-08-26 00:00:00 Completed [facility] Influenza Virus Vaccine Quad IM, Preserv and ABX Free 6 MO-64 YRS 2022-08-26 00:00:00 Completed [facility] SARS-COV-2 COVID-19 JOHANA-SUCROSE VACCINE 12 YRS+, BIVALENT 0.3ML, IM, (PFIZER ORTIZ TOP BOOSTER) 2022-08-26 00:00:00 Completed [facility] Influenza Virus Vaccine Quad IM, Preserv and ABX Free 6 MO-64 YRS 2022-08-26 00:00:00 Completed [facility] SARS-COV-2 COVID-19 JOHANA-SUCROSE VACCINE 12 YRS+, BIVALENT 0.3ML, IM, (PFIZER ORTIZ TOP BOOSTER) 2022-08-26 00:00:00 Completed [facility] Influenza Virus Vaccine Quad IM, Preserv and ABX Free 6 MO-64 YRS 2022-08-26 00:00:00 Completed [facility] SARS-COV-2 COVID-19 JOHANA-SUCROSE VACCINE 12 YRS+, BIVALENT 0.3ML, IM, (PFIZER ORTIZ TOP BOOSTER) 2022-08-26 00:00:00 Completed [facility] Influenza Virus Vaccine Quad IM, Preserv and ABX Free 6 MO-64 YRS 2022-08-26 00:00:00 Completed [facility] SARS-COV-2 COVID-19 JOHANA-SUCROSE VACCINE 12 YRS+, BIVALENT 0.3ML, IM, (PFIZER ORTIZ TOP BOOSTER) 2022-08-26 00:00:00 Completed [facility] Influenza Virus Vaccine Quad IM, Preserv and ABX Free 6 MO-64 YRS 2022-08-26 00:00:00 Completed [facility] SARS-COV-2 COVID-19 JOHANA-SUCROSE VACCINE 12 YRS+, BIVALENT 0.3ML, IM, (PFIZER ORTIZ TOP) 2022-08-26 00:00:00 Completed [facility] Influenza Virus Vaccine Quad IM, Preserv and ABX Free 6 MO-64 YRS 2022-08-26 00:00:00 Completed [facility] SARS-COV-2 COVID-19 JOHANA-SUCROSE VACCINE 12 YRS+, BIVALENT 0.3ML, IM, (PFIZER ORTIZ TOP) 2022-08-26 00:00:00 Completed [facility] Influenza Virus Vaccine Quad IM, Preserv and ABX Free 6 MO-64 YRS 2022-08-26 00:00:00 Completed [facility] SARS-COV-2 COVID-19 JOHANA-SUCROSE VACCINE 12 YRS+, BIVALENT 0.3ML, IM, (PFIZER ORTIZ TOP) 2022-08-26 00:00:00 Completed [facility] Influenza Virus Vaccine Quad IM, Preserv and ABX Free 6 MO-64 YRS 2022-08-26 00:00:00 Completed [facility] SARS-COV-2 COVID-19 JOHANA-SUCROSE VACCINE 12 YRS+, BIVALENT 0.3ML, IM, (PFIZER ORTIZ TOP) 2022-08-26 00:00:00 Completed [facility] Influenza Virus Vaccine Quad IM, Preserv and ABX Free 6 MO-64 YRS 2022-08-26 00:00:00 Completed [facility] SARS-COV-2 COVID-19 JOHANA-SUCROSE VACCINE 12 YRS+, BIVALENT 0.3ML, IM, (PFIZER ORTIZ TOP) 2022-08-26 00:00:00 Completed [facility] Influenza Virus Vaccine Quad IM, Preserv and ABX Free 6 MO-64 YRS 2022-08-26 00:00:00 Completed [facility] SARS-COV-2 COVID-19 JOHANA-SUCROSE VACCINE 12 YRS+, BIVALENT 0.3ML, IM, (PFIZER ORTIZ TOP) 2022-08-26 00:00:00 Completed [facility] Influenza Virus Vaccine Quad IM, Preserv and ABX Free 6 MO-64 YRS 2022-08-26 00:00:00 Completed [facility] SARS-COV-2 COVID-19 JOHANA-SUCROSE VACCINE 12 YRS+, BIVALENT 0.3ML, IM, (PFIZER ORTIZ TOP) 2022-08-26 00:00:00 Completed [facility] Influenza Virus Vaccine Quad IM, Preserv and ABX Free 6 MO-64 YRS 2022-08-26 00:00:00 Completed [facility] SARS-COV-2 COVID-19 JOHANA-SUCROSE VACCINE 12 YRS+, BIVALENT 0.3ML, IM, (PFIZER ORTIZ TOP) 2022-08-26 00:00:00 Completed [facility] Influenza Virus Vaccine Quad IM, Preserv and ABX Free 6 MO-64 YRS 2022-08-26 00:00:00 Completed [facility] SARS-COV-2 COVID-19 JOHANA-SUCROSE VACCINE 12 YRS+, BIVALENT 0.3ML, IM, (PFIZER ORTIZ TOP) 2022-08-26 00:00:00 Completed [facility] Influenza Virus Vaccine Quad IM, Preserv and ABX Free 6 MO-64 YRS 2022-08-26 00:00:00 Completed [facility] SARS-COV-2 COVID-19 JOHANA-SUCROSE VACCINE 12 YRS+, BIVALENT 0.3ML, IM, (PFIZER ORTIZ TOP) 2022-08-26 00:00:00 Completed [facility] Influenza Virus Vaccine Quad IM, Preserv and ABX Free 6 MO-64 YRS 2022-08-26 00:00:00 Completed [facility] SARS-COV-2 COVID-19 JOHANA-SUCROSE VACCINE 12 YRS+, BIVALENT 0.3ML, IM, (PFIZER ORTIZ TOP) 2022-08-26 00:00:00 Completed [facility] Influenza Virus Vaccine Quad IM, Preserv and ABX Free 6 MO-64 YRS 2022-08-26 00:00:00 Completed [facility] SARS-COV-2 COVID-19 JOHANA-SUCROSE VACCINE 12 YRS+, BIVALENT 0.3ML, IM, (PFIZER ORTIZ TOP) 2022-08-26 00:00:00 Completed [facility] Influenza Virus Vaccine Quad IM, Preserv and ABX Free 6 MO-64 YRS 2022-08-26 00:00:00 Completed [facility] SARS-COV-2 COVID-19 JOHANA-SUCROSE VACCINE 12 YRS+, BIVALENT 0.3ML, IM, (PFIZER ORTIZ TOP) 2022-08-26 00:00:00 Completed [facility] Influenza Virus Vaccine Quad IM, Preserv and ABX Free 6 MO-64 YRS 2022-08-26 00:00:00 Completed [facility] SARS-COV-2 COVID-19 JOHANA-SUCROSE VACCINE 12 YRS+, BIVALENT 0.3ML, IM, (PFIZER ORTIZ TOP) 2022-08-26 00:00:00 Completed [facility] Influenza Virus Vaccine Quad IM, Preserv and ABX Free 6 MO-64 YRS (FLUCELVAX) 2022-08-26 00:00:00 Completed [facility] Influenza Virus Vaccine Quad IM, Preserv and ABX Free 6 MO-64 YRS 2021-10-15 00:00:00 Completed [facility] Influenza Virus Vaccine Quad IM, Preserv and ABX Free 6 MO-64 YRS 2021-10-15 00:00:00 Completed [facility] Influenza Virus Vaccine Quad IM, Preserv and ABX Free 6 MO-64 YRS 2021-10-15 00:00:00 Completed [facility] Influenza Virus Vaccine Quad IM, Preserv and ABX Free 6 MO-64 YRS 2021-10-15 00:00:00 Completed [facility] Influenza Virus Vaccine Quad IM, Preserv and ABX Free 6 MO-64 YRS 2021-10-15 00:00:00 Completed [facility] Influenza Virus Vaccine Quad IM, Preserv and ABX Free 6 MO-64 YRS 2021-10-15 00:00:00 Completed [facility] Influenza Virus Vaccine Quad IM, Preserv and ABX Free 6 MO-64 YRS 2021-10-15 00:00:00 Completed [facility] Influenza Virus Vaccine Quad IM, Preserv and ABX Free 6 MO-64 YRS 2021-10-15 00:00:00 Completed [facility] Influenza Virus Vaccine Quad IM, Preserv and ABX Free 6 MO-64 YRS 2021-10-15 00:00:00 Completed [facility] Influenza Virus Vaccine Quad IM, Preserv and ABX Free 6 MO-64 YRS 2021-10-15 00:00:00 Completed [facility] Influenza Virus Vaccine Quad IM, Preserv and ABX Free 6 MO-64 YRS 2021-10-15 00:00:00 Completed [facility] Influenza Virus Vaccine Quad IM, Preserv and ABX Free 6 MO-64 YRS 2021-10-15 00:00:00 Completed [facility] Influenza Virus Vaccine Quad IM, Preserv and ABX Free 6 MO-64 YRS 2021-10-15 00:00:00 Completed [facility] Influenza Virus Vaccine Quad IM, Preserv and ABX Free 6 MO-64 YRS 2021-10-15 00:00:00 Completed [facility] Influenza Virus Vaccine Quad IM, Preserv and ABX Free 6 MO-64 YRS 2021-10-15 00:00:00 Completed [facility] Influenza Virus Vaccine Quad IM, Preserv and ABX Free 6 MO-64 YRS 2021-10-15 00:00:00 Completed [facility] Influenza Virus Vaccine Quad IM, Preserv and ABX Free 6 MO-64 YRS 2021-10-15 00:00:00 Completed [facility] Influenza Virus Vaccine Quad IM, Preserv and ABX Free 6 MO-64 YRS 2021-10-15 00:00:00 Completed [facility] Influenza Virus Vaccine Quad IM, Preserv and ABX Free 6 MO-64 YRS 2021-10-15 00:00:00 Completed [facility] Influenza Virus Vaccine Quad IM, Preserv and ABX Free 6 MO-64 YRS 2021-10-15 00:00:00 Completed [facility] Influenza Virus Vaccine Quad IM, Preserv and ABX Free 6 MO-64 YRS 2021-10-15 00:00:00 Completed [facility] Influenza Virus Vaccine Quad IM, Preserv and ABX Free 6 MO-64 YRS 2021-10-15 00:00:00 Completed [facility] Influenza Virus Vaccine Quad IM, Preserv and ABX Free 6 MO-64 YRS 2021-10-15 00:00:00 Completed [facility] Influenza Virus Vaccine Quad IM, Preserv and ABX Free 6 MO-64 YRS 2021-10-15 00:00:00 Completed [facility] Influenza Virus Vaccine Quad IM, Preserv and ABX Free 6 MO-64 YRS 2021-10-15 00:00:00 Completed [facility] Influenza Virus Vaccine Quad IM, Preserv and ABX Free 6 MO-64 YRS 2021-10-15 00:00:00 Completed [facility] Influenza Virus Vaccine Quad IM, Preserv and ABX Free 6 MO-64 YRS 2021-10-15 00:00:00 Completed [facility] Influenza Virus Vaccine Quad IM, Preserv and ABX Free 6 MO-64 YRS 2021-10-15 00:00:00 Completed [facility] Influenza Virus Vaccine Quad IM, Preserv and ABX Free 6 MO-64 YRS 2021-10-15 00:00:00 Completed [facility] Influenza Virus Vaccine Quad IM, Preserv and ABX Free 6 MO-64 YRS 2021-10-15 00:00:00 Completed [facility] Influenza Virus Vaccine Quad IM, Preserv and ABX Free 6 MO-64 YRS 2021-10-15 00:00:00 Completed [facility] Influenza Virus Vaccine Quad IM, Preserv and ABX Free 6 MO-64 YRS 2021-10-15 00:00:00 Completed [facility] Influenza Virus Vaccine Quad IM, Preserv and ABX Free 6 MO-64 YRS 2021-10-15 00:00:00 Completed [facility] Influenza Virus Vaccine Quad IM, Preserv and ABX Free 6 MO-64 YRS 2021-10-15 00:00:00 Completed [facility] Influenza Virus Vaccine Quad IM, Preserv and ABX Free 6 MO-64 YRS 2021-10-15 00:00:00 Completed [facility] Influenza Virus Vaccine Quad IM, Preserv and ABX Free 6 MO-64 YRS 2021-10-15 00:00:00 Completed [facility] Influenza Virus Vaccine Quad IM, Preserv and ABX Free 6 MO-64 YRS 2021-10-15 00:00:00 Completed [facility] Influenza Virus Vaccine Quad IM, Preserv and ABX Free 6 MO-64 YRS 2021-10-15 00:00:00 Completed [facility] Influenza Virus Vaccine Quad IM, Preserv and ABX Free 6 MO-64 YRS 2021-10-15 00:00:00 Completed [facility] Influenza Virus Vaccine Quad IM, Preserv and ABX Free 6 MO-64 YRS 2021-10-15 00:00:00 Completed [facility] Influenza Virus Vaccine Quad IM, Preserv and ABX Free 6 MO-64 YRS 2021-10-15 00:00:00 Completed [facility] Influenza Virus Vaccine Quad IM, Preserv and ABX Free 6 MO-64 YRS 2021-10-15 00:00:00 Completed [facility] Influenza Virus Vaccine Quad IM, Preserv and ABX Free 6 MO-64 YRS 2021-10-15 00:00:00 Completed [facility] Influenza Virus Vaccine Quad IM, Preserv and ABX Free 6 MO-64 YRS 2021-10-15 00:00:00 Completed [facility] Influenza Virus Vaccine Quad IM, Preserv and ABX Free 6 MO-64 YRS 2021-10-15 00:00:00 Completed [facility] Influenza Virus Vaccine Quad IM, Preserv and ABX Free 6 MO-64 YRS 2021-10-15 00:00:00 Completed [facility] Influenza Virus Vaccine Quad IM, Preserv and ABX Free 6 MO-64 YRS 2021-10-15 00:00:00 Completed [facility] Influenza Virus Vaccine Quad IM, Preserv and ABX Free 6 MO-64 YRS 2021-10-15 00:00:00 Completed [facility] Influenza Virus Vaccine Quad IM, Preserv and ABX Free 6 MO-64 YRS 2021-10-15 00:00:00 Completed [facility] Influenza Virus Vaccine Quad IM, Preserv and ABX Free 6 MO-64 YRS 2021-10-15 00:00:00 Completed [facility] Influenza Virus Vaccine Quad IM, Preserv and ABX Free 6 MO-64 YRS 2021-10-15 00:00:00 Completed [facility] Influenza Virus Vaccine Quad IM, Preserv and ABX Free 6 MO-64 YRS 2021-10-15 00:00:00 Completed [facility] Influenza Virus Vaccine Quad IM, Preserv and ABX Free 6 MO-64 YRS 2021-10-15 00:00:00 Completed [facility] Influenza Virus Vaccine Quad IM, Preserv and ABX Free 6 MO-64 YRS (FLUCELVAX) 2021-10-15 00:00:00 Completed [facility] SARS-COV-2 COVID-19 PFIZER VACCINE 2021-06-17 00:00:00 Completed [facility] SARS-COV-2 COVID-19 PFIZER VACCINE 2021-06-17 00:00:00 Completed [facility] SARS-COV-2 COVID-19 PFIZER VACCINE 2021-06-17 00:00:00 Completed [facility] SARS-COV-2 COVID-19 PFIZER VACCINE 2021-06-17 00:00:00 Completed [facility] SARS-COV-2 COVID-19 PFIZER VACCINE 2021-06-17 00:00:00 Completed [facility] SARS-COV-2 COVID-19 PFIZER VACCINE 2021-06-17 00:00:00 Completed [facility] SARS-COV-2 COVID-19 PFIZER VACCINE 2021-06-17 00:00:00 Completed [facility] SARS-COV-2 COVID-19 PFIZER VACCINE 2021-06-17 00:00:00 Completed [facility] SARS-COV-2 COVID-19 PFIZER VACCINE 2021-06-17 00:00:00 Completed [facility] SARS-COV-2 COVID-19 PFIZER VACCINE 2021-06-17 00:00:00 Completed [facility] SARS-COV-2 COVID-19 PFIZER VACCINE 2021-06-17 00:00:00 Completed [facility] SARS-COV-2 COVID-19 PFIZER VACCINE 2021-06-17 00:00:00 Completed [facility] SARS-COV-2 COVID-19 PFIZER VACCINE 2021-06-17 00:00:00 Completed [facility] SARS-COV-2 COVID-19 PFIZER VACCINE 2021-06-17 00:00:00 Completed [facility] SARS-COV-2 COVID-19 PFIZER VACCINE 2021-06-17 00:00:00 Completed [facility] SARS-COV-2 COVID-19 PFIZER VACCINE 2021-06-17 00:00:00 Completed [facility] SARS-COV-2 COVID-19 PFIZER VACCINE 2021-06-17 00:00:00 Completed [facility] SARS-COV-2 COVID-19 PFIZER VACCINE 2021-06-17 00:00:00 Completed [facility] SARS-COV-2 COVID-19 PFIZER VACCINE 2021-06-17 00:00:00 Completed [facility] SARS-COV-2 COVID-19 PFIZER VACCINE 2021-06-17 00:00:00 Completed [facility] SARS-COV-2 COVID-19 PFIZER VACCINE 2021-06-17 00:00:00 Completed [facility] SARS-COV-2 COVID-19 PFIZER VACCINE 2021-06-17 00:00:00 Completed [facility] SARS-COV-2 COVID-19 PFIZER VACCINE 2021-06-17 00:00:00 Completed [facility] SARS-COV-2 COVID-19 PFIZER VACCINE 2021-06-17 00:00:00 Completed [facility] SARS-COV-2 COVID-19 PFIZER VACCINE 2021-06-17 00:00:00 Completed [facility] SARS-COV-2 COVID-19 PFIZER VACCINE 2021-06-17 00:00:00 Completed [facility] SARS-COV-2 COVID-19 PFIZER VACCINE 2021-06-17 00:00:00 Completed [facility] SARS-COV-2 COVID-19 PFIZER VACCINE 2021-06-17 00:00:00 Completed [facility] SARS-COV-2 COVID-19 PFIZER VACCINE 2021-06-17 00:00:00 Completed [facility] SARS-COV-2 COVID-19 PFIZER VACCINE 2021-06-17 00:00:00 Completed [facility] SARS-COV-2 COVID-19 PFIZER VACCINE 2021-06-17 00:00:00 Completed [facility] SARS-COV-2 COVID-19 PFIZER VACCINE 2021-06-17 00:00:00 Completed [facility] SARS-COV-2 COVID-19 PFIZER VACCINE 2021-06-17 00:00:00 Completed [facility] SARS-COV-2 COVID-19 PFIZER VACCINE 2021-06-17 00:00:00 Completed [facility] SARS-COV-2 COVID-19 PFIZER VACCINE 2021-06-17 00:00:00 Completed [facility] SARS-COV-2 COVID-19 PFIZER VACCINE 2021-06-17 00:00:00 Completed [facility] SARS-COV-2 COVID-19 PFIZER VACCINE 2021-06-17 00:00:00 Completed [facility] SARS-COV-2 COVID-19 PFIZER VACCINE 2021-06-17 00:00:00 Completed [facility] SARS-COV-2 COVID-19 PFIZER VACCINE 2021-06-17 00:00:00 Completed [facility] SARS-COV-2 COVID-19 PFIZER VACCINE 2021-06-17 00:00:00 Completed [facility] SARS-COV-2 COVID-19 PFIZER VACCINE 2021-06-17 00:00:00 Completed [facility] SARS-COV-2 COVID-19 PFIZER VACCINE 2021-06-17 00:00:00 Completed [facility] SARS-COV-2 COVID-19 PFIZER VACCINE 2021-06-17 00:00:00 Completed [facility] SARS-COV-2 COVID-19 PFIZER VACCINE 2021-06-17 00:00:00 Completed [facility] SARS-COV-2 COVID-19 PFIZER VACCINE 2021-06-17 00:00:00 Completed [facility] SARS-COV-2 COVID-19 PFIZER VACCINE 2021-06-17 00:00:00 Completed [facility] SARS-COV-2 COVID-19 PFIZER VACCINE 2021-06-17 00:00:00 Completed [facility] SARS-COV-2 COVID-19 PFIZER VACCINE 2021-06-17 00:00:00 Completed [facility] SARS-COV-2 COVID-19 PFIZER VACCINE 2021-06-17 00:00:00 Completed [facility] SARS-COV-2 COVID-19 PFIZER VACCINE 2021-06-17 00:00:00 Completed [facility] SARS-COV-2 COVID-19 PFIZER VACCINE 2021-06-17 00:00:00 Completed [facility] [facility] SARS-COV-2 COVID-19 PFIZER VACCINE 2021-06-17 00:00:00 Completed [facility] SARS-COV-2 COVID-19 PFIZER VACCINE 2021-06-17 00:00:00 Completed [facility] SARS-COV-2 COVID-19 PFIZER VACCINE 2021-06-17 00:00:00 Completed [facility] SARS-COV-2 COVID-19 PFIZER VACCINE 2020-12-24 00:00:00 Completed [facility] SARS-COV-2 COVID-19 PFIZER VACCINE 2020-12-24 00:00:00 Completed [facility] SARS-COV-2 COVID-19 PFIZER VACCINE 2020-12-24 00:00:00 Completed [facility] SARS-COV-2 COVID-19 PFIZER VACCINE 2020-12-24 00:00:00 Completed [facility] SARS-COV-2 COVID-19 PFIZER VACCINE 2020-12-24 00:00:00 Completed [facility] SARS-COV-2 COVID-19 PFIZER VACCINE 2020-12-24 00:00:00 Completed [facility] SARS-COV-2 COVID-19 PFIZER VACCINE 2020-12-24 00:00:00 Completed [facility] SARS-COV-2 COVID-19 PFIZER VACCINE 2020-12-24 00:00:00 Completed [facility] SARS-COV-2 COVID-19 PFIZER VACCINE 2020-12-24 00:00:00 Completed [facility] SARS-COV-2 COVID-19 PFIZER VACCINE 2020-12-24 00:00:00 Completed [facility] SARS-COV-2 COVID-19 PFIZER VACCINE 2020-12-24 00:00:00 Completed [facility] SARS-COV-2 COVID-19 PFIZER VACCINE 2020-12-24 00:00:00 Completed [facility] SARS-COV-2 COVID-19 PFIZER VACCINE 2020-12-24 00:00:00 Completed [facility] SARS-COV-2 COVID-19 PFIZER VACCINE 2020-12-24 00:00:00 Completed [facility] SARS-COV-2 COVID-19 PFIZER VACCINE 2020-12-24 00:00:00 Completed [facility] SARS-COV-2 COVID-19 PFIZER VACCINE 2020-12-24 00:00:00 Completed [facility] SARS-COV-2 COVID-19 PFIZER VACCINE 2020-12-24 00:00:00 Completed [facility] SARS-COV-2 COVID-19 PFIZER VACCINE 2020-12-24 00:00:00 Completed [facility] SARS-COV-2 COVID-19 PFIZER VACCINE 2020-12-24 00:00:00 Completed [facility] SARS-COV-2 COVID-19 PFIZER VACCINE 2020-12-24 00:00:00 Completed [facility] SARS-COV-2 COVID-19 PFIZER VACCINE 2020-12-24 00:00:00 Completed [facility] SARS-COV-2 COVID-19 PFIZER VACCINE 2020-12-24 00:00:00 Completed [facility] SARS-COV-2 COVID-19 PFIZER VACCINE 2020-12-24 00:00:00 Completed [facility] SARS-COV-2 COVID-19 PFIZER VACCINE 2020-12-24 00:00:00 Completed [facility] SARS-COV-2 COVID-19 PFIZER VACCINE 2020-12-24 00:00:00 Completed [facility] SARS-COV-2 COVID-19 PFIZER VACCINE 2020-12-24 00:00:00 Completed [facility] SARS-COV-2 COVID-19 PFIZER VACCINE 2020-12-24 00:00:00 Completed [facility] SARS-COV-2 COVID-19 PFIZER VACCINE 2020-12-24 00:00:00 Completed [facility] SARS-COV-2 COVID-19 PFIZER VACCINE 2020-12-24 00:00:00 Completed [facility] SARS-COV-2 COVID-19 PFIZER VACCINE 2020-12-24 00:00:00 Completed [facility] SARS-COV-2 COVID-19 PFIZER VACCINE 2020-12-24 00:00:00 Completed [facility] SARS-COV-2 COVID-19 PFIZER VACCINE 2020-12-24 00:00:00 Completed [facility] SARS-COV-2 COVID-19 PFIZER VACCINE 2020-12-24 00:00:00 Completed [facility] SARS-COV-2 COVID-19 PFIZER VACCINE 2020-12-24 00:00:00 Completed [facility] SARS-COV-2 COVID-19 PFIZER VACCINE 2020-12-24 00:00:00 Completed [facility] SARS-COV-2 COVID-19 PFIZER VACCINE 2020-12-24 00:00:00 Completed [facility] SARS-COV-2 COVID-19 PFIZER VACCINE 2020-12-24 00:00:00 Completed [facility] SARS-COV-2 COVID-19 PFIZER VACCINE 2020-12-24 00:00:00 Completed [facility] SARS-COV-2 COVID-19 PFIZER VACCINE 2020-12-24 00:00:00 Completed [facility] SARS-COV-2 COVID-19 PFIZER VACCINE 2020-12-24 00:00:00 Completed [facility] SARS-COV-2 COVID-19 PFIZER VACCINE 2020-12-24 00:00:00 Completed [facility] SARS-COV-2 COVID-19 PFIZER VACCINE 2020-12-24 00:00:00 Completed [facility] SARS-COV-2 COVID-19 PFIZER VACCINE 2020-12-24 00:00:00 Completed [facility] SARS-COV-2 COVID-19 PFIZER VACCINE 2020-12-24 00:00:00 Completed [facility] SARS-COV-2 COVID-19 PFIZER VACCINE 2020-12-24 00:00:00 Completed [facility] SARS-COV-2 COVID-19 PFIZER VACCINE 2020-12-24 00:00:00 Completed [facility] SARS-COV-2 COVID-19 PFIZER VACCINE 2020-12-24 00:00:00 Completed [facility] SARS-COV-2 COVID-19 PFIZER VACCINE 2020-12-24 00:00:00 Completed [facility] SARS-COV-2 COVID-19 PFIZER VACCINE 2020-12-24 00:00:00 Completed [facility] SARS-COV-2 COVID-19 PFIZER VACCINE 2020-12-24 00:00:00 Completed [facility] SARS-COV-2 COVID-19 PFIZER VACCINE 2020-12-24 00:00:00 Completed [facility] SARS-COV-2 COVID-19 PFIZER VACCINE 2020-12-24 00:00:00 Completed [facility] SARS-COV-2 COVID-19 PFIZER VACCINE 2020-12-24 00:00:00 Completed [facility] SARS-COV-2 COVID-19 PFIZER VACCINE 2020-12-24 00:00:00 Completed [facility] SARS-COV-2 COVID-19 PFIZER VACCINE 2020-12-03 00:00:00 Completed [facility] SARS-COV-2 COVID-19 PFIZER VACCINE 2020-12-03 00:00:00 Completed [facility] SARS-COV-2 COVID-19 PFIZER VACCINE 2020-12-03 00:00:00 Completed [facility] SARS-COV-2 COVID-19 PFIZER VACCINE 2020-12-03 00:00:00 Completed [facility] SARS-COV-2 COVID-19 PFIZER VACCINE 2020-12-03 00:00:00 Completed [facility] SARS-COV-2 COVID-19 PFIZER VACCINE 2020-12-03 00:00:00 Completed [facility] SARS-COV-2 COVID-19 PFIZER VACCINE 2020-12-03 00:00:00 Completed [facility] SARS-COV-2 COVID-19 PFIZER VACCINE 2020-12-03 00:00:00 Completed [facility] SARS-COV-2 COVID-19 PFIZER VACCINE 2020-12-03 00:00:00 Completed [facility] SARS-COV-2 COVID-19 PFIZER VACCINE 2020-12-03 00:00:00 Completed [facility] SARS-COV-2 COVID-19 PFIZER VACCINE 2020-12-03 00:00:00 Completed [facility] SARS-COV-2 COVID-19 PFIZER VACCINE 2020-12-03 00:00:00 Completed [facility] SARS-COV-2 COVID-19 PFIZER VACCINE 2020-12-03 00:00:00 Completed [facility] SARS-COV-2 COVID-19 PFIZER VACCINE 2020-12-03 00:00:00 Completed [facility] SARS-COV-2 COVID-19 PFIZER VACCINE 2020-12-03 00:00:00 Completed [facility] SARS-COV-2 COVID-19 PFIZER VACCINE 2020-12-03 00:00:00 Completed [facility] SARS-COV-2 COVID-19 PFIZER VACCINE 2020-12-03 00:00:00 Completed [facility] SARS-COV-2 COVID-19 PFIZER VACCINE 2020-12-03 00:00:00 Completed [facility] SARS-COV-2 COVID-19 PFIZER VACCINE 2020-12-03 00:00:00 Completed [facility] SARS-COV-2 COVID-19 PFIZER VACCINE 2020-12-03 00:00:00 Completed [facility] SARS-COV-2 COVID-19 PFIZER VACCINE 2020-12-03 00:00:00 Completed [facility] SARS-COV-2 COVID-19 PFIZER VACCINE 2020-12-03 00:00:00 Completed [facility] SARS-COV-2 COVID-19 PFIZER VACCINE 2020-12-03 00:00:00 Completed [facility] SARS-COV-2 COVID-19 PFIZER VACCINE 2020-12-03 00:00:00 Completed [facility] SARS-COV-2 COVID-19 PFIZER VACCINE 2020-12-03 00:00:00 Completed [facility] SARS-COV-2 COVID-19 PFIZER VACCINE 2020-12-03 00:00:00 Completed [facility] SARS-COV-2 COVID-19 PFIZER VACCINE 2020-12-03 00:00:00 Completed [facility] SARS-COV-2 COVID-19 PFIZER VACCINE 2020-12-03 00:00:00 Completed [facility] SARS-COV-2 COVID-19 PFIZER VACCINE 2020-12-03 00:00:00 Completed [facility] SARS-COV-2 COVID-19 PFIZER VACCINE 2020-12-03 00:00:00 Completed [facility] SARS-COV-2 COVID-19 PFIZER VACCINE 2020-12-03 00:00:00 Completed [facility] SARS-COV-2 COVID-19 PFIZER VACCINE 2020-12-03 00:00:00 Completed [facility] SARS-COV-2 COVID-19 PFIZER VACCINE 2020-12-03 00:00:00 Completed [facility] SARS-COV-2 COVID-19 PFIZER VACCINE 2020-12-03 00:00:00 Completed [facility] SARS-COV-2 COVID-19 PFIZER VACCINE 2020-12-03 00:00:00 Completed [facility] SARS-COV-2 COVID-19 PFIZER VACCINE 2020-12-03 00:00:00 Completed [facility] SARS-COV-2 COVID-19 PFIZER VACCINE 2020-12-03 00:00:00 Completed [facility] SARS-COV-2 COVID-19 PFIZER VACCINE 2020-12-03 00:00:00 Completed [facility] SARS-COV-2 COVID-19 PFIZER VACCINE 2020-12-03 00:00:00 Completed [facility] SARS-COV-2 COVID-19 PFIZER VACCINE 2020-12-03 00:00:00 Completed [facility] SARS-COV-2 COVID-19 PFIZER VACCINE 2020-12-03 00:00:00 Completed [facility] SARS-COV-2 COVID-19 PFIZER VACCINE 2020-12-03 00:00:00 Completed [facility] SARS-COV-2 COVID-19 PFIZER VACCINE 2020-12-03 00:00:00 Completed [facility] SARS-COV-2 COVID-19 PFIZER VACCINE 2020-12-03 00:00:00 Completed [facility] SARS-COV-2 COVID-19 PFIZER VACCINE 2020-12-03 00:00:00 Completed [facility] SARS-COV-2 COVID-19 PFIZER VACCINE 2020-12-03 00:00:00 Completed [facility] SARS-COV-2 COVID-19 PFIZER VACCINE 2020-12-03 00:00:00 Completed [facility] SARS-COV-2 COVID-19 PFIZER VACCINE 2020-12-03 00:00:00 Completed [facility] SARS-COV-2 COVID-19 PFIZER VACCINE 2020-12-03 00:00:00 Completed [facility] SARS-COV-2 COVID-19 PFIZER VACCINE 2020-12-03 00:00:00 Completed [facility] SARS-COV-2 COVID-19 PFIZER VACCINE 2020-12-03 00:00:00 Completed [facility] SARS-COV-2 COVID-19 PFIZER VACCINE 2020-12-03 00:00:00 Completed [facility] SARS-COV-2 COVID-19 PFIZER VACCINE 2020-12-03 00:00:00 Completed [facility] SARS-COV-2 COVID-19 PFIZER VACCINE 2020-12-03 00:00:00 Completed [facility] Influenza Virus Vaccine Quad IM 3+ YRS 2019-07-05 00:00:00 Completed [facility] Twinrix (hep a/hep b) 2019-07-05 00:00:00 Completed [facility] Pneumococcal Polysaccharide, PPSV23 (PNEUMOVAX) 2019-07-05 00:00:00 Completed [facility] Influenza Virus Vaccine Quad IM 3+ YRS 2019-07-05 00:00:00 Completed [facility] Twinrix (hep a/hep b) 2019-07-05 00:00:00 Completed [facility] Pneumococcal Polysaccharide, PPSV23 (PNEUMOVAX) 2019-07-05 00:00:00 Completed [facility] Influenza Virus Vaccine Quad IM 3+ YRS 2019-07-05 00:00:00 Completed [facility] Twinrix (hep a/hep b) 2019-07-05 00:00:00 Completed [facility] Pneumococcal Polysaccharide, PPSV23 (PNEUMOVAX) 2019-07-05 00:00:00 Completed [facility] Influenza Virus Vaccine Quad IM 3+ YRS 2019-07-05 00:00:00 Completed [facility] Twinrix (hep a/hep b) 2019-07-05 00:00:00 Completed [facility] Pneumococcal Polysaccharide, PPSV23 (PNEUMOVAX) 2019-07-05 00:00:00 Completed [facility] Influenza Virus Vaccine Quad IM 3+ YRS 2019-07-05 00:00:00 Completed [facility] Twinrix (hep a/hep b) 2019-07-05 00:00:00 Completed [facility] Pneumococcal Polysaccharide, PPSV23 (PNEUMOVAX) 2019-07-05 00:00:00 Completed [facility] Influenza Virus Vaccine Quad IM 3+ YRS 2019-07-05 00:00:00 Completed [facility] Twinrix (hep a/hep b) 2019-07-05 00:00:00 Completed [facility] Pneumococcal Polysaccharide, PPSV23 (PNEUMOVAX) 2019-07-05 00:00:00 Completed [facility] Influenza Virus Vaccine Quad IM 3+ YRS 2019-07-05 00:00:00 Completed [facility] Twinrix (hep a/hep b) 2019-07-05 00:00:00 Completed [facility] Pneumococcal Polysaccharide, PPSV23 (PNEUMOVAX) 2019-07-05 00:00:00 Completed [facility] Influenza Virus Vaccine Quad IM 3+ YRS 2019-07-05 00:00:00 Completed [facility] Twinrix (hep a/hep b) 2019-07-05 00:00:00 Completed [facility] Pneumococcal Polysaccharide, PPSV23 (PNEUMOVAX) 2019-07-05 00:00:00 Completed [facility] Influenza Virus Vaccine Quad IM 3+ YRS 2019-07-05 00:00:00 Completed [facility] Twinrix (hep a/hep b) 2019-07-05 00:00:00 Completed [facility] Pneumococcal Polysaccharide, PPSV23 (PNEUMOVAX) 2019-07-05 00:00:00 Completed [facility] Influenza Virus Vaccine Quad IM 3+ YRS 2019-07-05 00:00:00 Completed [facility] Twinrix (hep a/hep b) 2019-07-05 00:00:00 Completed [facility] Pneumococcal Polysaccharide, PPSV23 (PNEUMOVAX) 2019-07-05 00:00:00 Completed [facility] Influenza Virus Vaccine Quad IM 3+ YRS 2019-07-05 00:00:00 Completed [facility] Twinrix (hep a/hep b) 2019-07-05 00:00:00 Completed [facility] Pneumococcal Polysaccharide, PPSV23 (PNEUMOVAX) 2019-07-05 00:00:00 Completed [facility] Influenza Virus Vaccine Quad IM 3+ YRS 2019-07-05 00:00:00 Completed [facility] Twinrix (hep a/hep b) 2019-07-05 00:00:00 Completed [facility] Pneumococcal Polysaccharide, PPSV23 (PNEUMOVAX) 2019-07-05 00:00:00 Completed [facility] Influenza Virus Vaccine Quad IM 3+ YRS 2019-07-05 00:00:00 Completed [facility] Twinrix (hep a/hep b) 2019-07-05 00:00:00 Completed [facility] Pneumococcal Polysaccharide, PPSV23 (PNEUMOVAX) 2019-07-05 00:00:00 Completed [facility] Influenza Virus Vaccine Quad IM 3+ YRS 2019-07-05 00:00:00 Completed [facility] Twinrix (hep a/hep b) 2019-07-05 00:00:00 Completed [facility] Pneumococcal Polysaccharide, PPSV23 (PNEUMOVAX) 2019-07-05 00:00:00 Completed [facility] Influenza Virus Vaccine Quad IM 3+ YRS 2019-07-05 00:00:00 Completed [facility] Twinrix (hep a/hep b) 2019-07-05 00:00:00 Completed [facility] Pneumococcal Polysaccharide, PPSV23 (PNEUMOVAX) 2019-07-05 00:00:00 Completed [facility] Influenza Virus Vaccine Quad IM 3+ YRS 2019-07-05 00:00:00 Completed [facility] Twinrix (hep a/hep b) 2019-07-05 00:00:00 Completed [facility] Pneumococcal Polysaccharide, PPSV23 (PNEUMOVAX) 2019-07-05 00:00:00 Completed [facility] Influenza Virus Vaccine Quad IM 3+ YRS 2019-07-05 00:00:00 Completed [facility] Twinrix (hep a/hep b) 2019-07-05 00:00:00 Completed [facility] Pneumococcal Polysaccharide, PPSV23 (PNEUMOVAX) 2019-07-05 00:00:00 Completed [facility] Influenza Virus Vaccine Quad IM 3+ YRS 2019-07-05 00:00:00 Completed [facility] Twinrix (hep a/hep b) 2019-07-05 00:00:00 Completed [facility] Pneumococcal Polysaccharide, PPSV23 (PNEUMOVAX) 2019-07-05 00:00:00 Completed [facility] Influenza Virus Vaccine Quad IM 3+ YRS 2019-07-05 00:00:00 Completed [facility] Twinrix (hep a/hep b) 2019-07-05 00:00:00 Completed [facility] Pneumococcal Polysaccharide, PPSV23 (PNEUMOVAX) 2019-07-05 00:00:00 Completed [facility] Influenza Virus Vaccine Quad IM 3+ YRS 2019-07-05 00:00:00 Completed [facility] Twinrix (hep a/hep b) 2019-07-05 00:00:00 Completed [facility] Pneumococcal Polysaccharide, PPSV23 (PNEUMOVAX) 2019-07-05 00:00:00 Completed [facility] Influenza Virus Vaccine Quad IM 3+ YRS 2019-07-05 00:00:00 Completed [facility] Twinrix (hep a/hep b) 2019-07-05 00:00:00 Completed [facility] Pneumococcal Polysaccharide, PPSV23 (PNEUMOVAX) 2019-07-05 00:00:00 Completed [facility] Influenza Virus Vaccine Quad IM 3+ YRS 2019-07-05 00:00:00 Completed [facility] Twinrix (hep a/hep b) 2019-07-05 00:00:00 Completed [facility] Pneumococcal Polysaccharide, PPSV23 (PNEUMOVAX) 2019-07-05 00:00:00 Completed [facility] Influenza Virus Vaccine Quad IM 3+ YRS 2019-07-05 00:00:00 Completed [facility] Twinrix (hep a/hep b) 2019-07-05 00:00:00 Completed [facility] Pneumococcal Polysaccharide, PPSV23 (PNEUMOVAX) 2019-07-05 00:00:00 Completed [facility] Influenza Virus Vaccine Quad IM 3+ YRS 2019-07-05 00:00:00 Completed [facility] Twinrix (hep a/hep b) 2019-07-05 00:00:00 Completed [facility] Pneumococcal Polysaccharide, PPSV23 (PNEUMOVAX) 2019-07-05 00:00:00 Completed [facility] Influenza Virus Vaccine Quad IM 3+ YRS 2019-07-05 00:00:00 Completed [facility] Twinrix (hep a/hep b) 2019-07-05 00:00:00 Completed [facility] Pneumococcal Polysaccharide, PPSV23 (PNEUMOVAX) 2019-07-05 00:00:00 Completed [facility] Influenza Virus Vaccine Quad IM 3+ YRS 2019-07-05 00:00:00 Completed [facility] Twinrix (hep a/hep b) 2019-07-05 00:00:00 Completed [facility] Pneumococcal Polysaccharide, PPSV23 (PNEUMOVAX) 2019-07-05 00:00:00 Completed [facility] Influenza Virus Vaccine Quad IM 3+ YRS 2019-07-05 00:00:00 Completed [facility] Twinrix (hep a/hep b) 2019-07-05 00:00:00 Completed [facility] Pneumococcal Polysaccharide, PPSV23 (PNEUMOVAX) 2019-07-05 00:00:00 Completed [facility] Influenza Virus Vaccine Quad IM 3+ YRS 2019-07-05 00:00:00 Completed [facility] Twinrix (hep a/hep b) 2019-07-05 00:00:00 Completed [facility] Pneumococcal Polysaccharide, PPSV23 (PNEUMOVAX) 2019-07-05 00:00:00 Completed [facility] Influenza Virus Vaccine Quad IM 3+ YRS 2019-07-05 00:00:00 Completed [facility] Twinrix (hep a/hep b) 2019-07-05 00:00:00 Completed [facility] Pneumococcal Polysaccharide, PPSV23 (PNEUMOVAX) 2019-07-05 00:00:00 Completed [facility] Influenza Virus Vaccine Quad IM 3+ YRS 2019-07-05 00:00:00 Completed [facility] Twinrix (hep a/hep b) 2019-07-05 00:00:00 Completed [facility] Pneumococcal Polysaccharide, PPSV23 (PNEUMOVAX) 2019-07-05 00:00:00 Completed [facility] Influenza Virus Vaccine Quad IM 3+ YRS 2019-07-05 00:00:00 Completed [facility] Twinrix (hep a/hep b) 2019-07-05 00:00:00 Completed [facility] Pneumococcal Polysaccharide, PPSV23 (PNEUMOVAX) 2019-07-05 00:00:00 Completed [facility] Influenza Virus Vaccine Quad IM 3+ YRS 2019-07-05 00:00:00 Completed [facility] Twinrix (hep a/hep b) 2019-07-05 00:00:00 Completed [facility] Pneumococcal Polysaccharide, PPSV23 (PNEUMOVAX) 2019-07-05 00:00:00 Completed [facility] Influenza Virus Vaccine Quad IM 3+ YRS 2019-07-05 00:00:00 Completed [facility] Twinrix (hep a/hep b) 2019-07-05 00:00:00 Completed [facility] Pneumococcal Polysaccharide, PPSV23 (PNEUMOVAX) 2019-07-05 00:00:00 Completed [facility] Influenza Virus Vaccine Quad IM 3+ YRS 2019-07-05 00:00:00 Completed [facility] Twinrix (hep a/hep b) 2019-07-05 00:00:00 Completed [facility] Pneumococcal Polysaccharide, PPSV23 (PNEUMOVAX) 2019-07-05 00:00:00 Completed [facility] Influenza Virus Vaccine Quad IM 3+ YRS 2019-07-05 00:00:00 Completed [facility] Twinrix (hep a/hep b) 2019-07-05 00:00:00 Completed [facility] Pneumococcal Polysaccharide, PPSV23 (PNEUMOVAX) 2019-07-05 00:00:00 Completed [facility] Influenza Virus Vaccine Quad IM 3+ YRS 2019-07-05 00:00:00 Completed [facility] Twinrix (hep a/hep b) 2019-07-05 00:00:00 Completed [facility] Pneumococcal Polysaccharide, PPSV23 (PNEUMOVAX) 2019-07-05 00:00:00 Completed [facility] Influenza Virus Vaccine Quad IM 3+ YRS 2019-07-05 00:00:00 Completed [facility] Twinrix (hep a/hep b) 2019-07-05 00:00:00 Completed [facility] Pneumococcal Polysaccharide, PPSV23 (PNEUMOVAX) 2019-07-05 00:00:00 Completed [facility] Influenza Virus Vaccine Quad IM 3+ YRS 2019-07-05 00:00:00 Completed [facility] Twinrix (hep a/hep b) 2019-07-05 00:00:00 Completed [facility] Pneumococcal Polysaccharide, PPSV23 (PNEUMOVAX) 2019-07-05 00:00:00 Completed [facility] Influenza Virus Vaccine Quad IM 3+ YRS 2019-07-05 00:00:00 Completed [facility] Twinrix (hep a/hep b) 2019-07-05 00:00:00 Completed [facility] Pneumococcal Polysaccharide, PPSV23 (PNEUMOVAX) 2019-07-05 00:00:00 Completed [facility] Influenza Virus Vaccine Quad IM 3+ YRS 2019-07-05 00:00:00 Completed [facility] Twinrix (hep a/hep b) 2019-07-05 00:00:00 Completed [facility] Pneumococcal Polysaccharide, PPSV23 (PNEUMOVAX) 2019-07-05 00:00:00 Completed [facility] Influenza Virus Vaccine Quad IM 3+ YRS 2019-07-05 00:00:00 Completed [facility] Twinrix (hep a/hep b) 2019-07-05 00:00:00 Completed [facility] Pneumococcal Polysaccharide, PPSV23 (PNEUMOVAX) 2019-07-05 00:00:00 Completed [facility] Influenza Virus Vaccine Quad IM 3+ YRS 2019-07-05 00:00:00 Completed [facility] Twinrix (hep a/hep b) 2019-07-05 00:00:00 Completed [facility] Pneumococcal Polysaccharide, PPSV23 (PNEUMOVAX) 2019-07-05 00:00:00 Completed [facility] Influenza Virus Vaccine Quad IM 3+ YRS 2019-07-05 00:00:00 Completed [facility] Twinrix (hep a/hep b) 2019-07-05 00:00:00 Completed [facility] Pneumococcal Polysaccharide, PPSV23 (PNEUMOVAX) 2019-07-05 00:00:00 Completed [facility] Influenza Virus Vaccine Quad IM 3+ YRS 2019-07-05 00:00:00 Completed [facility] Twinrix (hep a/hep b) 2019-07-05 00:00:00 Completed [facility] Pneumococcal Polysaccharide, PPSV23 (PNEUMOVAX) 2019-07-05 00:00:00 Completed [facility] Influenza Virus Vaccine Quad IM 3+ YRS 2019-07-05 00:00:00 Completed [facility] Twinrix (hep a/hep b) 2019-07-05 00:00:00 Completed [facility] Pneumococcal Polysaccharide, PPSV23 (PNEUMOVAX) 2019-07-05 00:00:00 Completed [facility] Influenza Virus Vaccine Quad IM 3+ YRS 2019-07-05 00:00:00 Completed [facility] Twinrix (hep a/hep b) 2019-07-05 00:00:00 Completed [facility] Pneumococcal Polysaccharide, PPSV23 (PNEUMOVAX) 2019-07-05 00:00:00 Completed [facility] Influenza Virus Vaccine Quad IM 3+ YRS 2019-07-05 00:00:00 Completed [facility] Twinrix (hep a/hep b) 2019-07-05 00:00:00 Completed [facility] Pneumococcal Polysaccharide, PPSV23 (PNEUMOVAX) 2019-07-05 00:00:00 Completed [facility] Influenza Virus Vaccine Quad IM 3+ YRS 2019-07-05 00:00:00 Completed [facility] Twinrix (hep a/hep b) 2019-07-05 00:00:00 Completed [facility] Pneumococcal Polysaccharide, PPSV23 (PNEUMOVAX) 2019-07-05 00:00:00 Completed [facility] Influenza Virus Vaccine Quad IM 3+ YRS 2019-07-05 00:00:00 Completed [facility] Twinrix (hep a/hep b) 2019-07-05 00:00:00 Completed [facility] Pneumococcal Polysaccharide, PPSV23 (PNEUMOVAX) 2019-07-05 00:00:00 Completed [facility] Influenza Virus Vaccine Quad IM 3+ YRS 2019-07-05 00:00:00 Completed [facility] Twinrix (hep a/hep b) 2019-07-05 00:00:00 Completed [facility] Pneumococcal Polysaccharide, PPSV23 (PNEUMOVAX) 2019-07-05 00:00:00 Completed [facility] Influenza Virus Vaccine Quad IM 3+ YRS 2019-07-05 00:00:00 Completed [facility] Twinrix (hep a/hep b) 2019-07-05 00:00:00 Completed [facility] Pneumococcal Polysaccharide, PPSV23 (PNEUMOVAX) 2019-07-05 00:00:00 Completed [facility] Influenza Virus Vaccine Quad IM 3+ YRS 2019-07-05 00:00:00 Completed [facility] Twinrix (hep a/hep b) 2019-07-05 00:00:00 Completed [facility] Pneumococcal Polysaccharide, PPSV23 (PNEUMOVAX) 2019-07-05 00:00:00 Completed [facility] Influenza Virus Vaccine Quad IM 3+ YRS 2019-07-05 00:00:00 Completed [facility] Twinrix (hep a/hep b) 2019-07-05 00:00:00 Completed [facility] Pneumococcal Polysaccharide, PPSV23 (PNEUMOVAX) 2019-07-05 00:00:00 Completed [facility] Influenza Virus Vaccine Quad IM 3+ YRS 2019-07-05 00:00:00 Completed [facility] Twinrix (hep a/hep b) 2019-07-05 00:00:00 Completed [facility] Pneumococcal Polysaccharide, PPSV23 (PNEUMOVAX) 2019-07-05 00:00:00 Completed [facility] Pneumococcal 13 Conjugate, PCV13 (Prevnar 13) 2019-03-29 00:00:00 Completed [facility] Pneumococcal 13 Conjugate, PCV13 (Prevnar 13) 2019-03-29 00:00:00 Completed [facility] Pneumococcal 13 Conjugate, PCV13 (Prevnar 13) 2019-03-29 00:00:00 Completed [facility] Pneumococcal 13 Conjugate, PCV13 (Prevnar 13) 2019-03-29 00:00:00 Completed [facility] Pneumococcal 13 Conjugate, PCV13 (Prevnar 13) 2019-03-29 00:00:00 Completed [facility] Pneumococcal 13 Conjugate, PCV13 (Prevnar 13) 2019-03-29 00:00:00 Completed [facility] Pneumococcal 13 Conjugate, PCV13 (Prevnar 13) 2019-03-29 00:00:00 Completed [facility] Pneumococcal 13 Conjugate, PCV13 (Prevnar 13) 2019-03-29 00:00:00 Completed [facility] Pneumococcal 13 Conjugate, PCV13 (Prevnar 13) 2019-03-29 00:00:00 Completed [facility] Pneumococcal 13 Conjugate, PCV13 (Prevnar 13) 2019-03-29 00:00:00 Completed [facility] Pneumococcal 13 Conjugate, PCV13 (Prevnar 13) 2019-03-29 00:00:00 Completed [facility] Pneumococcal 13 Conjugate, PCV13 (Prevnar 13) 2019-03-29 00:00:00 Completed [facility] Pneumococcal 13 Conjugate, PCV13 (Prevnar 13) 2019-03-29 00:00:00 Completed [facility] Pneumococcal 13 Conjugate, PCV13 (Prevnar 13) 2019-03-29 00:00:00 Completed [facility] Pneumococcal 13 Conjugate, PCV13 (Prevnar 13) 2019-03-29 00:00:00 Completed [facility] Pneumococcal 13 Conjugate, PCV13 (Prevnar 13) 2019-03-29 00:00:00 Completed [facility] Pneumococcal 13 Conjugate, PCV13 (Prevnar 13) 2019-03-29 00:00:00 Completed [facility] Pneumococcal 13 Conjugate, PCV13 (Prevnar 13) 2019-03-29 00:00:00 Completed [facility] Pneumococcal 13 Conjugate, PCV13 (Prevnar 13) 2019-03-29 00:00:00 Completed [facility] Pneumococcal 13 Conjugate, PCV13 (Prevnar 13) 2019-03-29 00:00:00 Completed [facility] Pneumococcal 13 Conjugate, PCV13 (Prevnar 13) 2019-03-29 00:00:00 Completed [facility] Pneumococcal 13 Conjugate, PCV13 (Prevnar 13) 2019-03-29 00:00:00 Completed [facility] Pneumococcal 13 Conjugate, PCV13 (Prevnar 13) 2019-03-29 00:00:00 Completed [facility] Pneumococcal 13 Conjugate, PCV13 (Prevnar 13) 2019-03-29 00:00:00 Completed [facility] Pneumococcal 13 Conjugate, PCV13 (Prevnar 13) 2019-03-29 00:00:00 Completed [facility] Pneumococcal 13 Conjugate, PCV13 (Prevnar 13) 2019-03-29 00:00:00 Completed [facility] Pneumococcal 13 Conjugate, PCV13 (Prevnar 13) 2019-03-29 00:00:00 Completed [facility] Pneumococcal 13 Conjugate, PCV13 (Prevnar 13) 2019-03-29 00:00:00 Completed [facility] Pneumococcal 13 Conjugate, PCV13 (Prevnar 13) 2019-03-29 00:00:00 Completed [facility] Pneumococcal 13 Conjugate, PCV13 (Prevnar 13) 2019-03-29 00:00:00 Completed [facility] Pneumococcal 13 Conjugate, PCV13 (Prevnar 13) 2019-03-29 00:00:00 Completed [facility] Pneumococcal 13 Conjugate, PCV13 (Prevnar 13) 2019-03-29 00:00:00 Completed [facility] Pneumococcal 13 Conjugate, PCV13 (Prevnar 13) 2019-03-29 00:00:00 Completed [facility] Pneumococcal 13 Conjugate, PCV13 (Prevnar 13) 2019-03-29 00:00:00 Completed [facility] Pneumococcal 13 Conjugate, PCV13 (Prevnar 13) 2019-03-29 00:00:00 Completed [facility] Pneumococcal 13 Conjugate, PCV13 (Prevnar 13) 2019-03-29 00:00:00 Completed [facility] Pneumococcal 13 Conjugate, PCV13 (Prevnar 13) 2019-03-29 00:00:00 Completed [facility] Pneumococcal 13 Conjugate, PCV13 (Prevnar 13) 2019-03-29 00:00:00 Completed [facility] Pneumococcal 13 Conjugate, PCV13 (Prevnar 13) 2019-03-29 00:00:00 Completed [facility] Pneumococcal 13 Conjugate, PCV13 (Prevnar 13) 2019-03-29 00:00:00 Completed [facility] Pneumococcal 13 Conjugate, PCV13 (Prevnar 13) 2019-03-29 00:00:00 Completed [facility] Pneumococcal 13 Conjugate, PCV13 (Prevnar 13) 2019-03-29 00:00:00 Completed [facility] Pneumococcal 13 Conjugate, PCV13 (Prevnar 13) 2019-03-29 00:00:00 Completed [facility] Pneumococcal 13 Conjugate, PCV13 (Prevnar 13) 2019-03-29 00:00:00 Completed [facility] Pneumococcal 13 Conjugate, PCV13 (Prevnar 13) 2019-03-29 00:00:00 Completed [facility] Pneumococcal 13 Conjugate, PCV13 (Prevnar 13) 2019-03-29 00:00:00 Completed [facility] Pneumococcal 13 Conjugate, PCV13 (Prevnar 13) 2019-03-29 00:00:00 Completed [facility] Pneumococcal 13 Conjugate, PCV13 (Prevnar 13) 2019-03-29 00:00:00 Completed [facility] Pneumococcal 13 Conjugate, PCV13 (Prevnar 13) 2019-03-29 00:00:00 Completed [facility] Pneumococcal 13 Conjugate, PCV13 (Prevnar 13) 2019-03-29 00:00:00 Completed [facility] Pneumococcal 13 Conjugate, PCV13 (Prevnar 13) 2019-03-29 00:00:00 Completed [facility] Pneumococcal 13 Conjugate, PCV13 (Prevnar 13) 2019-03-29 00:00:00 Completed [facility] Pneumococcal 13 Conjugate, PCV13 (Prevnar 13) 2019-03-29 00:00:00 Completed [facility] Pneumococcal 13 Conjugate, PCV13 (Prevnar 13) 2019-03-29 00:00:00 Completed [facility] Twinrix (hep a/hep b) 2018-11-16 00:00:00 Completed [facility] Influenza Virus Vaccine Quad .5 mL IM 6+ MO 2018-11-16 00:00:00 Completed [facility] Twinrix (hep a/hep b) 2018-11-16 00:00:00 Completed [facility] Influenza Virus Vaccine Quad .5 mL IM 6+ MO 2018-11-16 00:00:00 Completed [facility] Twinrix (hep a/hep b) 2018-11-16 00:00:00 Completed [facility] Influenza Virus Vaccine Quad .5 mL IM 6+ MO 2018-11-16 00:00:00 Completed [facility] Twinrix (hep a/hep b) 2018-11-16 00:00:00 Completed [facility] Influenza Virus Vaccine Quad .5 mL IM 6+ MO 2018-11-16 00:00:00 Completed [facility] Twinrix (hep a/hep b) 2018-11-16 00:00:00 Completed [facility] Influenza Virus Vaccine Quad .5 mL IM 6+ MO 2018-11-16 00:00:00 Completed [facility] Twinrix (hep a/hep b) 2018-11-16 00:00:00 Completed [facility] Influenza Virus Vaccine Quad .5 mL IM 6+ MO 2018-11-16 00:00:00 Completed [facility] Twinrix (hep a/hep b) 2018-11-16 00:00:00 Completed [facility] Influenza Virus Vaccine Quad .5 mL IM 6+ MO 2018-11-16 00:00:00 Completed [facility] Twinrix (hep a/hep b) 2018-11-16 00:00:00 Completed [facility] Influenza Virus Vaccine Quad .5 mL IM 6+ MO 2018-11-16 00:00:00 Completed [facility] Twinrix (hep a/hep b) 2018-11-16 00:00:00 Completed [facility] Influenza Virus Vaccine Quad .5 mL IM 6+ MO 2018-11-16 00:00:00 Completed [facility] Twinrix (hep a/hep b) 2018-11-16 00:00:00 Completed [facility] Influenza Virus Vaccine Quad .5 mL IM 6+ MO 2018-11-16 00:00:00 Completed [facility] Twinrix (hep a/hep b) 2018-11-16 00:00:00 Completed [facility] Influenza Virus Vaccine Quad .5 mL IM 6+ MO 2018-11-16 00:00:00 Completed [facility] Twinrix (hep a/hep b) 2018-11-16 00:00:00 Completed [facility] Influenza Virus Vaccine Quad .5 mL IM 6+ MO 2018-11-16 00:00:00 Completed [facility] Twinrix (hep a/hep b) 2018-11-16 00:00:00 Completed [facility] Influenza Virus Vaccine Quad .5 mL IM 6+ MO 2018-11-16 00:00:00 Completed [facility] Twinrix (hep a/hep b) 2018-11-16 00:00:00 Completed [facility] Influenza Virus Vaccine Quad .5 mL IM 6+ MO 2018-11-16 00:00:00 Completed [facility] Twinrix (hep a/hep b) 2018-11-16 00:00:00 Completed [facility] Influenza Virus Vaccine Quad .5 mL IM 6+ MO 2018-11-16 00:00:00 Completed [facility] Twinrix (hep a/hep b) 2018-11-16 00:00:00 Completed [facility] Influenza Virus Vaccine Quad .5 mL IM 6+ MO 2018-11-16 00:00:00 Completed [facility] Twinrix (hep a/hep b) 2018-11-16 00:00:00 Completed [facility] Influenza Virus Vaccine Quad .5 mL IM 6+ MO 2018-11-16 00:00:00 Completed [facility] Twinrix (hep a/hep b) 2018-11-16 00:00:00 Completed [facility] Influenza Virus Vaccine Quad .5 mL IM 6+ MO 2018-11-16 00:00:00 Completed [facility] Twinrix (hep a/hep b) 2018-11-16 00:00:00 Completed [facility] Influenza Virus Vaccine Quad .5 mL IM 6+ MO 2018-11-16 00:00:00 Completed [facility] Twinrix (hep a/hep b) 2018-11-16 00:00:00 Completed [facility] Influenza Virus Vaccine Quad .5 mL IM 6+ MO 2018-11-16 00:00:00 Completed [facility] Twinrix (hep a/hep b) 2018-11-16 00:00:00 Completed [facility] Influenza Virus Vaccine Quad .5 mL IM 6+ MO 2018-11-16 00:00:00 Completed [facility] Twinrix (hep a/hep b) 2018-11-16 00:00:00 Completed [facility] Influenza Virus Vaccine Quad .5 mL IM 6+ MO 2018-11-16 00:00:00 Completed [facility] Twinrix (hep a/hep b) 2018-11-16 00:00:00 Completed [facility] Influenza Virus Vaccine Quad .5 mL IM 6+ MO 2018-11-16 00:00:00 Completed [facility] Twinrix (hep a/hep b) 2018-11-16 00:00:00 Completed [facility] Influenza Virus Vaccine Quad .5 mL IM 6+ MO 2018-11-16 00:00:00 Completed [facility] Twinrix (hep a/hep b) 2018-11-16 00:00:00 Completed [facility] Influenza Virus Vaccine Quad .5 mL IM 6+ MO 2018-11-16 00:00:00 Completed [facility] Twinrix (hep a/hep b) 2018-11-16 00:00:00 Completed [facility] Influenza Virus Vaccine Quad .5 mL IM 6+ MO 2018-11-16 00:00:00 Completed [facility] Twinrix (hep a/hep b) 2018-11-16 00:00:00 Completed [facility] Influenza Virus Vaccine Quad .5 mL IM 6+ MO 2018-11-16 00:00:00 Completed [facility] Twinrix (hep a/hep b) 2018-11-16 00:00:00 Completed [facility] Influenza Virus Vaccine Quad .5 mL IM 6+ MO 2018-11-16 00:00:00 Completed [facility] Twinrix (hep a/hep b) 2018-11-16 00:00:00 Completed [facility] Influenza Virus Vaccine Quad .5 mL IM 6+ MO 2018-11-16 00:00:00 Completed [facility] Twinrix (hep a/hep b) 2018-11-16 00:00:00 Completed [facility] Influenza Virus Vaccine Quad .5 mL IM 6+ MO 2018-11-16 00:00:00 Completed [facility] Twinrix (hep a/hep b) 2018-11-16 00:00:00 Completed [facility] Influenza Virus Vaccine Quad .5 mL IM 6+ MO 2018-11-16 00:00:00 Completed [facility] Twinrix (hep a/hep b) 2018-11-16 00:00:00 Completed [facility] Influenza Virus Vaccine Quad .5 mL IM 6+ MO 2018-11-16 00:00:00 Completed [facility] Twinrix (hep a/hep b) 2018-11-16 00:00:00 Completed [facility] Influenza Virus Vaccine Quad .5 mL IM 6+ MO 2018-11-16 00:00:00 Completed [facility] Twinrix (hep a/hep b) 2018-11-16 00:00:00 Completed [facility] Influenza Virus Vaccine Quad .5 mL IM 6+ MO 2018-11-16 00:00:00 Completed [facility] Twinrix (hep a/hep b) 2018-11-16 00:00:00 Completed [facility] Influenza Virus Vaccine Quad .5 mL IM 6+ MO 2018-11-16 00:00:00 Completed [facility] Twinrix (hep a/hep b) 2018-11-16 00:00:00 Completed [facility] Influenza Virus Vaccine Quad .5 mL IM 6+ MO 2018-11-16 00:00:00 Completed [facility] Twinrix (hep a/hep b) 2018-11-16 00:00:00 Completed [facility] Influenza Virus Vaccine Quad .5 mL IM 6+ MO 2018-11-16 00:00:00 Completed [facility] Twinrix (hep a/hep b) 2018-11-16 00:00:00 Completed [facility] Influenza Virus Vaccine Quad .5 mL IM 6+ MO 2018-11-16 00:00:00 Completed [facility] Twinrix (hep a/hep b) 2018-11-16 00:00:00 Completed [facility] Influenza Virus Vaccine Quad .5 mL IM 6+ MO 2018-11-16 00:00:00 Completed [facility] Twinrix (hep a/hep b) 2018-11-16 00:00:00 Completed [facility] Influenza Virus Vaccine Quad .5 mL IM 6+ MO 2018-11-16 00:00:00 Completed [facility] Twinrix (hep a/hep b) 2018-11-16 00:00:00 Completed [facility] Influenza Virus Vaccine Quad .5 mL IM 6+ MO 2018-11-16 00:00:00 Completed [facility] Twinrix (hep a/hep b) 2018-11-16 00:00:00 Completed [facility] Influenza Virus Vaccine Quad .5 mL IM 6+ MO 2018-11-16 00:00:00 Completed [facility] Twinrix (hep a/hep b) 2018-11-16 00:00:00 Completed [facility] Influenza Virus Vaccine Quad .5 mL IM 6+ MO 2018-11-16 00:00:00 Completed [facility] Twinrix (hep a/hep b) 2018-11-16 00:00:00 Completed [facility] Influenza Virus Vaccine Quad .5 mL IM 6+ MO 2018-11-16 00:00:00 Completed [facility] Twinrix (hep a/hep b) 2018-11-16 00:00:00 Completed [facility] Influenza Virus Vaccine Quad .5 mL IM 6+ MO 2018-11-16 00:00:00 Completed [facility] Twinrix (hep a/hep b) 2018-11-16 00:00:00 Completed [facility] Influenza Virus Vaccine Quad .5 mL IM 6+ MO 2018-11-16 00:00:00 Completed [facility] Twinrix (hep a/hep b) 2018-11-16 00:00:00 Completed [facility] Influenza Virus Vaccine Quad .5 mL IM 6+ MO 2018-11-16 00:00:00 Completed [facility] Twinrix (hep a/hep b) 2018-11-16 00:00:00 Completed [facility] Influenza Virus Vaccine Quad .5 mL IM 6+ MO 2018-11-16 00:00:00 Completed [facility] Twinrix (hep a/hep b) 2018-11-16 00:00:00 Completed [facility] Influenza Virus Vaccine Quad .5 mL IM 6+ MO 2018-11-16 00:00:00 Completed [facility] Twinrix (hep a/hep b) 2018-11-16 00:00:00 Completed [facility] Influenza Virus Vaccine Quad .5 mL IM 6+ MO 2018-11-16 00:00:00 Completed [facility] Twinrix (hep a/hep b) 2018-11-16 00:00:00 Completed [facility] Influenza Virus Vaccine Quad .5 mL IM 6+ MO 2018-11-16 00:00:00 Completed [facility] Twinrix (hep a/hep b) 2018-11-16 00:00:00 Completed [facility] Influenza Virus Vaccine Quad .5 mL IM 6+ MO 2018-11-16 00:00:00 Completed [facility] Twinrix (hep a/hep b) 2018-11-16 00:00:00 Completed [facility] Influenza Virus Vaccine Quad .5 mL IM 6+ MO 2018-11-16 00:00:00 Completed [facility] Twinrix (hep a/hep b) 2018-11-16 00:00:00 Completed [facility] Influenza Virus Vaccine Quad .5 mL IM 6+ MO (FLUZONE/FLULAVAL/F LUARIX) 2018-11-16 00:00:00 Completed [facility] Twinrix (hep a/hep b) 2018-09-21 00:00:00 Completed [facility] TDAP 2018-09-21 00:00:00 Completed [facility] Twinrix (hep a/hep b) 2018-09-21 00:00:00 Completed [facility] TDAP 2018-09-21 00:00:00 Completed [facility] Twinrix (hep a/hep b) 2018-09-21 00:00:00 Completed [facility] TDAP 2018-09-21 00:00:00 Completed [facility] Twinrix (hep a/hep b) 2018-09-21 00:00:00 Completed [facility] TDAP 2018-09-21 00:00:00 Completed [facility] Twinrix (hep a/hep b) 2018-09-21 00:00:00 Completed [facility] TDAP 2018-09-21 00:00:00 Completed [facility] Twinrix (hep a/hep b) 2018-09-21 00:00:00 Completed [facility] TDAP 2018-09-21 00:00:00 Completed [facility] Twinrix (hep a/hep b) 2018-09-21 00:00:00 Completed [facility] TDAP 2018-09-21 00:00:00 Completed [facility] Twinrix (hep a/hep b) 2018-09-21 00:00:00 Completed [facility] TDAP 2018-09-21 00:00:00 Completed [facility] Twinrix (hep a/hep b) 2018-09-21 00:00:00 Completed [facility] TDAP 2018-09-21 00:00:00 Completed [facility] Twinrix (hep a/hep b) 2018-09-21 00:00:00 Completed [facility] TDAP 2018-09-21 00:00:00 Completed [facility] Twinrix (hep a/hep b) 2018-09-21 00:00:00 Completed [facility] TDAP 2018-09-21 00:00:00 Completed [facility] Twinrix (hep a/hep b) 2018-09-21 00:00:00 Completed [facility] TDAP 2018-09-21 00:00:00 Completed [facility] Twinrix (hep a/hep b) 2018-09-21 00:00:00 Completed [facility] TDAP 2018-09-21 00:00:00 Completed [facility] Twinrix (hep a/hep b) 2018-09-21 00:00:00 Completed [facility] TDAP 2018-09-21 00:00:00 Completed [facility] Twinrix (hep a/hep b) 2018-09-21 00:00:00 Completed [facility] TDAP 2018-09-21 00:00:00 Completed [facility] Twinrix (hep a/hep b) 2018-09-21 00:00:00 Completed [facility] TDAP 2018-09-21 00:00:00 Completed [facility] Twinrix (hep a/hep b) 2018-09-21 00:00:00 Completed [facility] TDAP 2018-09-21 00:00:00 Completed [facility] Twinrix (hep a/hep b) 2018-09-21 00:00:00 Completed [facility] TDAP 2018-09-21 00:00:00 Completed [facility] Twinrix (hep a/hep b) 2018-09-21 00:00:00 Completed [facility] TDAP 2018-09-21 00:00:00 Completed [facility] Twinrix (hep a/hep b) 2018-09-21 00:00:00 Completed [facility] TDAP 2018-09-21 00:00:00 Completed [facility] Twinrix (hep a/hep b) 2018-09-21 00:00:00 Completed [facility] TDAP 2018-09-21 00:00:00 Completed [facility] Twinrix (hep a/hep b) 2018-09-21 00:00:00 Completed [facility] TDAP 2018-09-21 00:00:00 Completed [facility] Twinrix (hep a/hep b) 2018-09-21 00:00:00 Completed [facility] TDAP 2018-09-21 00:00:00 Completed [facility] Twinrix (hep a/hep b) 2018-09-21 00:00:00 Completed [facility] TDAP 2018-09-21 00:00:00 Completed [facility] Twinrix (hep a/hep b) 2018-09-21 00:00:00 Completed [facility] TDAP 2018-09-21 00:00:00 Completed [facility] Twinrix (hep a/hep b) 2018-09-21 00:00:00 Completed [facility] TDAP 2018-09-21 00:00:00 Completed [facility] Twinrix (hep a/hep b) 2018-09-21 00:00:00 Completed [facility] TDAP 2018-09-21 00:00:00 Completed [facility] Twinrix (hep a/hep b) 2018-09-21 00:00:00 Completed [facility] TDAP 2018-09-21 00:00:00 Completed [facility] Twinrix (hep a/hep b) 2018-09-21 00:00:00 Completed [facility] TDAP 2018-09-21 00:00:00 Completed [facility] Twinrix (hep a/hep b) 2018-09-21 00:00:00 Completed [facility] TDAP 2018-09-21 00:00:00 Completed [facility] Twinrix (hep a/hep b) 2018-09-21 00:00:00 Completed [facility] TDAP 2018-09-21 00:00:00 Completed [facility] Twinrix (hep a/hep b) 2018-09-21 00:00:00 Completed [facility] TDAP 2018-09-21 00:00:00 Completed [facility] Twinrix (hep a/hep b) 2018-09-21 00:00:00 Completed [facility] TDAP 2018-09-21 00:00:00 Completed [facility] Twinrix (hep a/hep b) 2018-09-21 00:00:00 Completed [facility] TDAP 2018-09-21 00:00:00 Completed [facility] Twinrix (hep a/hep b) 2018-09-21 00:00:00 Completed [facility] TDAP 2018-09-21 00:00:00 Completed [facility] Twinrix (hep a/hep b) 2018-09-21 00:00:00 Completed [facility] TDAP 2018-09-21 00:00:00 Completed [facility] Twinrix (hep a/hep b) 2018-09-21 00:00:00 Completed [facility] TDAP 2018-09-21 00:00:00 Completed [facility] Twinrix (hep a/hep b) 2018-09-21 00:00:00 Completed [facility] TDAP 2018-09-21 00:00:00 Completed [facility] Twinrix (hep a/hep b) 2018-09-21 00:00:00 Completed [facility] TDAP 2018-09-21 00:00:00 Completed [facility] Twinrix (hep a/hep b) 2018-09-21 00:00:00 Completed [facility] TDAP 2018-09-21 00:00:00 Completed [facility] Twinrix (hep a/hep b) 2018-09-21 00:00:00 Completed [facility] TDAP 2018-09-21 00:00:00 [facility] [facility] (hep a/hep b) 2018-09-21 00:00:00 Completed [facility] TD[facility] 2018-09-21 00:00:00 Completed [facility] (hep a/hep b) 2018-09-21 00:00:00 Completed [facility] TD[facility] 2018-09-21 00:00:00 Completed [facility] (hep a/hep b) 2018-09-21 00:00:00 Completed [facility] TD[facility] 2018-09-21 00:00:00 Completed [facility] (hep a/hep b) 2018-09-21 00:00:00 Completed [facility] TD[facility] 2018-09-21 00:00:00 Completed [facility] (hep a/hep b) 2018-09-21 00:00:00 Completed [facility] TD[facility] 2018-09-21 00:00:00 Completed [facility] (hep a/hep b) 2018-09-21 00:00:00 Completed [facility] TD[facility] 2018-09-21 00:00:00 Completed [facility] (hep a/hep b) 2018-09-21 00:00:00 Completed [facility] TD[facility] 2018-09-21 00:00:00 Completed [facility] (hep a/hep b) 2018-09-21 00:00:00 Completed [facility] TD[facility] 2018-09-21 00:00:00 Completed [facility] (hep a/hep b) 2018-09-21 00:00:00 Completed [facility] TD[facility] 2018-09-21 00:00:00 Completed [facility] (hep a/hep b) 2018-09-21 00:00:00 Completed [facility] TD[facility] 2018-09-21 00:00:00 Completed [facility] (hep a/hep b) 2018-09-21 00:00:00 Completed [facility] TD[facility] 2018-09-21 00:00:00 Completed [facility] (hep a/hep b) 2018-09-21 00:00:00 Completed [facility] TD[facility] 2018-09-21 00:00:00 Completed [facility] (hep a/hep b) 2018-09-21 00:00:00 Completed [facility] TDAP 2018-09-21 00:00:00 Completed [facility] (hep a/hep b) Unknown Completed [facility] TD[facility] Unknown Completed [facility] Influenza Virus Vaccine Quad IM 3+ YRS Unknown Completed [facility] (hep a/hep b) Unknown Completed [facility] Influenza Virus Vaccine Quad .5 mL IM 6+ MO (FLUZONE/FLULAVAL/F LUARIX) Unknown Completed [facility] Pneumococcal 13 Conjugate, PCV13 (Prevnar 13) Unknown Completed [facility] (hep a/hep b) Unknown Completed [facility] Pneumococcal Polysaccharide, PPSV23 (PNEUMOVAX) Unknown Completed [facility] SARS-COV-2 COVID-19 PFIZER VACCINE Unknown Completed [facility] SARS-COV-2 COVID-19 PFIZER VACCINE Unknown Completed [facility] SARS-COV-2 COVID-19 PFIZER VACCINE Unknown Completed [facility] Influenza Virus Vaccine Quad IM, Preserv and ABX Free 6 MO-64 YRS (FLUCELVAX) Unknown Completed [facility] (hep a/hep b) Unknown Completed [facility] TDAP Unknown Completed [facility] Influenza Virus Vaccine Quad IM 3+ YRS Unknown Completed [facility] (hep a/hep b) Unknown Completed [facility] Influenza Virus Vaccine Quad .5 mL IM 6+ MO (FLUZONE/FLULAVAL/F LUARIX) Unknown Completed [facility] Pneumococcal 13 Conjugate, PCV13 (Prevnar 13) Unknown Completed [facility] (hep a/hep b) Unknown Completed [facility] Pneumococcal Polysaccharide, PPSV23 (PNEUMOVAX) Unknown Completed [facility] SARS-COV-2 COVID-19 PFIZER VACCINE Unknown Completed [facility] SARS-COV-2 COVID-19 PFIZER VACCINE Unknown Completed [facility] SARS-COV-2 COVID-19 PFIZER VACCINE Unknown Completed [facility] Influenza Virus Vaccine Quad IM, Preserv and ABX Free 6 MO-64 YRS (FLUCELVAX) Unknown Completed [facility] (hep a/hep b) Unknown Completed [facility] TDAP Unknown Completed [facility] Influenza Virus Vaccine Quad IM 3+ YRS Unknown Completed [facility] (hep a/hep b) Unknown Completed [facility] Influenza Virus Vaccine Quad .5 mL IM 6+ MO (FLUZONE/FLULAVAL/F LUARIX) Unknown Completed [facility] Pneumococcal 13 Conjugate, PCV13 (Prevnar 13) Unknown Completed [facility] (hep a/hep b) Unknown Completed [facility] Pneumococcal Polysaccharide, PPSV23 (PNEUMOVAX) Unknown Completed [facility] SARS-COV-2 COVID-19 PFIZER VACCINE Unknown Completed [facility] SARS-COV-2 COVID-19 PFIZER VACCINE Unknown Completed [facility] SARS-COV-2 COVID-19 PFIZER VACCINE Unknown Completed [facility] Influenza Virus Vaccine Quad IM, Preserv and ABX Free 6 MO-64 YRS (FLUCELVAX) Unknown Completed [facility] SARS-COV-2 COVID-19 JOHANA-SUCROSE VACCINE 12 YRS+, BIVALENT 0.3ML, IM, (PFIZER ORTIZ TOP) Unknown Completed [facility] Influenza Virus Vaccine Quad IM, Preserv and ABX Free 6 MO-64 YRS (FLUCELVAX) Unknown Completed [facility] (hep a/hep b) Unknown Completed [facility] TDAP Unknown Completed [facility] Influenza Virus Vaccine Quad IM 3+ YRS Unknown Completed [facility] (hep a/hep b) Unknown Completed [facility] Influenza Virus Vaccine Quad .5 mL IM 6+ MO (FLUZONE/FLULAVAL/F LUARIX) Unknown Completed [facility] Pneumococcal 13 Conjugate, PCV13 (Prevnar 13) Unknown Completed [facility] (hep a/hep b) Unknown Completed [facility] Pneumococcal Polysaccharide, PPSV23 (PNEUMOVAX) Unknown Completed [facility] SARS-COV-2 COVID-19 PFIZER VACCINE Unknown Completed [facility] SARS-COV-2 COVID-19 PFIZER VACCINE Unknown Completed [facility] SARS-COV-2 COVID-19 PFIZER VACCINE Unknown Completed [facility] Influenza Virus Vaccine Quad IM, Preserv and ABX Free 6 MO-64 YRS (FLUCELVAX) Unknown Completed [facility] SARS-COV-2 COVID-19 JOHANA-SUCROSE VACCINE 12 YRS+, BIVALENT 0.3ML, IM, (PFIZER ORTIZ TOP) Unknown Completed [facility] Influenza Virus Vaccine Quad IM, Preserv and ABX Free 6 MO-64 YRS (FLUCELVAX) Unknown Completed [facility] (hep a/hep b) Unknown Completed [facility] TDAP Unknown Completed [facility] Influenza Virus Vaccine Quad IM 3+ YRS Unknown Completed [facility] (hep a/hep b) Unknown Completed [facility] Influenza Virus Vaccine Quad .5 mL IM 6+ MO (FLUZONE/FLULAVAL/F LUARIX) Unknown Completed [facility] Pneumococcal 13 Conjugate, PCV13 (Prevnar 13) Unknown Completed [facility] (hep a/hep b) Unknown Completed [facility] Pneumococcal Polysaccharide, PPSV23 (PNEUMOVAX) Unknown Completed [facility] SARS-COV-2 COVID-19 PFIZER VACCINE Unknown Completed [facility] SARS-COV-2 COVID-19 PFIZER VACCINE Unknown Completed [facility] SARS-COV-2 COVID-19 PFIZER VACCINE Unknown Completed [facility] Influenza Virus Vaccine Quad IM, Preserv and ABX Free 6 MO-64 YRS (FLUCELVAX) Unknown Completed [facility] SARS-COV-2 COVID-19 JOHANA-SUCROSE VACCINE 12 YRS+, BIVALENT 0.3ML, IM, (PFIZER ORTIZ TOP) Unknown Completed [facility] Influenza Virus Vaccine Quad IM, Preserv and ABX Free 6 MO-64 YRS (FLUCELVAX) Unknown Completed [facility] (hep a/hep b) Unknown Completed [facility] TDAP Unknown Completed [facility] Influenza Virus Vaccine Quad IM 3+ YRS Unknown Completed [facility] (hep a/hep b) Unknown Completed [facility] Influenza Virus Vaccine Quad .5 mL IM 6+ MO (FLUZONE/FLULAVAL/F LUARIX) Unknown Completed [facility] Pneumococcal 13 Conjugate, PCV13 (Prevnar 13) Unknown Completed [facility] (hep a/hep b) Unknown Completed [facility] Pneumococcal Polysaccharide, PPSV23 (PNEUMOVAX) Unknown Completed [facility] SARS-COV-2 COVID-19 PFIZER VACCINE Unknown Completed [facility] SARS-COV-2 COVID-19 PFIZER VACCINE Unknown Completed [facility] SARS-COV-2 COVID-19 PFIZER VACCINE Unknown Completed [facility] Influenza Virus Vaccine Quad IM, Preserv and ABX Free 6 MO-64 YRS (FLUCELVAX) Unknown Completed [facility] SARS-COV-2 COVID-19 JOHANA-SUCROSE VACCINE 12 YRS+, BIVALENT 0.3ML, IM, (PFIZER ORTIZ TOP) Unknown Completed [facility] Influenza Virus Vaccine Quad IM, Preserv and ABX Free 6 MO-64 YRS (FLUCELVAX) Unknown Completed [facility] (hep a/hep b) Unknown Completed [facility] TDAP Unknown Completed [facility] Influenza Virus Vaccine Quad IM 3+ YRS Unknown Completed [facility] (hep a/hep b) Unknown Completed [facility] Influenza Virus Vaccine Quad .5 mL IM 6+ MO (FLUZONE/FLULAVAL/F LUARIX) Unknown Completed [facility] Pneumococcal 13 Conjugate, PCV13 (Prevnar 13) Unknown Completed [facility] (hep a/hep b) Unknown Completed [facility] Pneumococcal Polysaccharide, PPSV23 (PNEUMOVAX) Unknown Completed [facility] SARS-COV-2 COVID-19 PFIZER VACCINE Unknown Completed [facility] SARS-COV-2 COVID-19 PFIZER VACCINE Unknown Completed [facility] SARS-COV-2 COVID-19 PFIZER VACCINE Unknown Completed [facility] Influenza Virus Vaccine Quad IM, Preserv and ABX Free 6 MO-64 YRS (FLUCELVAX) Unknown Completed [facility] SARS-COV-2 COVID-19 JOHANA-SUCROSE VACCINE 12 YRS+, BIVALENT 0.3ML, IM, (PFIZER ORTIZ TOP) Unknown Completed [facility] Influenza Virus Vaccine Quad IM, Preserv and ABX Free 6 MO-64 YRS (FLUCELVAX) Unknown Completed [facility] (hep a/hep b) Unknown Completed [facility] TDAP Unknown Completed [facility] Influenza Virus Vaccine Quad IM 3+ YRS Unknown Completed [facility] (hep a/hep b) Unknown Completed [facility] Influenza Virus Vaccine Quad .5 mL IM 6+ MO (FLUZONE/FLULAVAL/F LUARIX) Unknown Completed [facility] Pneumococcal 13 Conjugate, PCV13 (Prevnar 13) Unknown Completed [facility] (hep a/hep b) Unknown Completed [facility] Pneumococcal Polysaccharide, PPSV23 (PNEUMOVAX) Unknown Completed [facility] SARS-COV-2 COVID-19 PFIZER VACCINE Unknown Completed [facility] SARS-COV-2 COVID-19 PFIZER VACCINE Unknown Completed [facility] SARS-COV-2 COVID-19 PFIZER VACCINE Unknown Completed [facility] Influenza Virus Vaccine Quad IM, Preserv and ABX Free 6 MO-64 YRS (FLUCELVAX) Unknown Completed [facility] SARS-COV-2 COVID-19 JOHANA-SUCROSE VACCINE 12 YRS+, BIVALENT 0.3ML, IM, (PFIZER ORTIZ TOP) Unknown Completed [facility] Influenza Virus Vaccine Quad IM, Preserv and ABX Free 6 MO-64 YRS (FLUCELVAX) Unknown Completed [facility] (hep a/hep b) Unknown Completed [facility] TDAP Unknown Completed [facility] Influenza Virus Vaccine Quad IM 3+ YRS Unknown Completed [facility] (hep a/hep b) Unknown Completed [facility] Influenza Virus Vaccine Quad .5 mL IM 6+ MO (FLUZONE/FLULAVAL/F LUARIX) Unknown Completed [facility] Pneumococcal 13 Conjugate, PCV13 (Prevnar 13) Unknown Completed [facility] (hep a/hep b) Unknown Completed [facility] Pneumococcal Polysaccharide, PPSV23 (PNEUMOVAX) Unknown Completed [facility] SARS-COV-2 COVID-19 PFIZER VACCINE Unknown Completed [facility] SARS-COV-2 COVID-19 PFIZER VACCINE Unknown Completed [facility] SARS-COV-2 COVID-19 PFIZER VACCINE Unknown Completed [facility] Influenza Virus Vaccine Quad IM, Preserv and ABX Free 6 MO-64 YRS (FLUCELVAX) Unknown Completed [facility] SARS-COV-2 COVID-19 JOHANA-SUCROSE VACCINE 12 YRS+, BIVALENT 0.3ML, IM, (PFIZER ORTIZ TOP) Unknown Completed [facility] Influenza Virus Vaccine Quad IM, Preserv and ABX Free 6 MO-64 YRS (FLUCELVAX) Unknown Completed [facility] (hep a/hep b) Unknown Completed [facility] TDAP Unknown Completed [facility] Influenza Virus Vaccine Quad IM 3+ YRS Unknown Completed [facility] (hep a/hep b) Unknown Completed [facility] Influenza Virus Vaccine Quad .5 mL IM 6+ MO (FLUZONE/FLULAVAL/F LUARIX) Unknown Completed [facility] Pneumococcal 13 Conjugate, PCV13 (Prevnar 13) Unknown Completed [facility] (hep a/hep b) Unknown Completed [facility] Pneumococcal Polysaccharide, PPSV23 (PNEUMOVAX) Unknown Completed [facility] SARS-COV-2 COVID-19 PFIZER VACCINE Unknown Completed [facility] SARS-COV-2 COVID-19 PFIZER VACCINE Unknown Completed [facility] SARS-COV-2 COVID-19 PFIZER VACCINE Unknown Completed [facility] Influenza Virus Vaccine Quad IM, Preserv and ABX Free 6 MO-64 YRS (FLUCELVAX) Unknown Completed [facility] SARS-COV-2 COVID-19 JOHANA-SUCROSE VACCINE 12 YRS+, BIVALENT 0.3ML, IM, (PFIZER ORTIZ TOP) Unknown Completed [facility] Influenza Virus Vaccine Quad IM, Preserv and ABX Free 6 MO-64 YRS (FLUCELVAX) Unknown Completed [facility] (hep a/hep b) Unknown Completed [facility] TDAP Unknown Completed [facility] Influenza Virus Vaccine Quad IM 3+ YRS Unknown Completed [facility] (hep a/hep b) Unknown Completed [facility] Influenza Virus Vaccine Quad .5 mL IM 6+ MO (FLUZONE/FLULAVAL/F LUARIX) Unknown Completed [facility] Pneumococcal 13 Conjugate, PCV13 (Prevnar 13) Unknown Completed [facility] (hep a/hep b) Unknown Completed [facility] Pneumococcal Polysaccharide, PPSV23 (PNEUMOVAX) Unknown Completed [facility] SARS-COV-2 COVID-19 PFIZER VACCINE Unknown Completed [facility] SARS-COV-2 COVID-19 PFIZER VACCINE Unknown Completed [facility] SARS-COV-2 COVID-19 PFIZER VACCINE Unknown Completed [facility] Influenza Virus Vaccine Quad IM, Preserv and ABX Free 6 MO-64 YRS (FLUCELVAX) Unknown Completed [facility] SARS-COV-2 COVID-19 JOHANA-SUCROSE VACCINE 12 YRS+, BIVALENT 0.3ML, IM, (PFIZER ORTIZ TOP) Unknown Completed [facility] Influenza Virus Vaccine Quad IM, Preserv and ABX Free 6 MO-64 YRS (FLUCELVAX) Unknown Completed [facility] (hep a/hep b) Unknown Completed [facility] TDAP Unknown Completed [facility] Influenza Virus Vaccine Quad IM 3+ YRS Unknown Completed [facility] (hep a/hep b) Unknown Completed [facility] Influenza Virus Vaccine Quad .5 mL IM 6+ MO (FLUZONE/FLULAVAL/F LUARIX) Unknown Completed [facility] Pneumococcal 13 Conjugate, PCV13 (Prevnar 13) Unknown Completed [facility] (hep a/hep b) Unknown Completed [facility] Pneumococcal Polysaccharide, PPSV23 (PNEUMOVAX) Unknown Completed [facility] SARS-COV-2 COVID-19 PFIZER VACCINE Unknown Completed [facility] SARS-COV-2 COVID-19 PFIZER VACCINE Unknown Completed [facility] SARS-COV-2 COVID-19 PFIZER VACCINE Unknown Completed [facility] Influenza Virus Vaccine Quad IM, Preserv and ABX Free 6 MO-64 YRS (FLUCELVAX) Unknown Completed [facility] SARS-COV-2 COVID-19 JOHANA-SUCROSE VACCINE 12 YRS+, BIVALENT 0.3ML, IM, (PFIZER ROTIZ TOP) Unknown Completed [facility] Influenza Virus Vaccine Quad IM, Preserv and ABX Free 6 MO-64 YRS (FLUCELVAX) Unknown Completed [facility] (hep a/hep b) Unknown Completed [facility] TDAP Unknown Completed [facility] Influenza Virus Vaccine Quad IM 3+ YRS Unknown Completed [facility] (hep a/hep b) Unknown Completed [facility] Influenza Virus Vaccine Quad .5 mL IM 6+ MO (FLUZONE/FLULAVAL/F LUARIX) Unknown Completed [facility] Pneumococcal 13 Conjugate, PCV13 (Prevnar 13) Unknown Completed [facility] (hep a/hep b) Unknown Completed [facility] Pneumococcal Polysaccharide, PPSV23 (PNEUMOVAX) Unknown Completed [facility] SARS-COV-2 COVID-19 PFIZER VACCINE Unknown Completed [facility] SARS-COV-2 COVID-19 PFIZER VACCINE Unknown Completed [facility] SARS-COV-2 COVID-19 PFIZER VACCINE Unknown Completed [facility] Influenza Virus Vaccine Quad IM, Preserv and ABX Free 6 MO-64 YRS (FLUCELVAX) Unknown Completed [facility] SARS-COV-2 COVID-19 JOHANA-SUCROSE VACCINE 12 YRS+, BIVALENT 0.3ML, IM, (PFIZER ORTIZ TOP) Unknown Completed [facility] Influenza Virus Vaccine Quad IM, Preserv and ABX Free 6 MO-64 YRS (FLUCELVAX) Unknown Completed [facility] (hep a/hep b) Unknown Completed [facility] TD[facility] Unknown Completed [facility] Influenza Virus Vaccine Quad IM 3+ YRS Unknown Completed [facility] (hep a/hep b) Unknown Completed [facility] Influenza Virus Vaccine Quad .5 mL IM 6+ MO (FLUZONE/FLULAVAL/F LUARIX) Unknown Completed [facility] Pneumococcal 13 Conjugate, PCV13 (Prevnar 13) Unknown Completed [facility] (hep a/hep b) Unknown Completed [facility] Pneumococcal Polysaccharide, PPSV23 (PNEUMOVAX) Unknown Completed [facility] SARS-COV-2 COVID-19 PFIZER VACCINE Unknown Completed [facility] SARS-COV-2 COVID-19 PFIZER VACCINE Unknown Completed [facility] SARS-COV-2 COVID-19 PFIZER VACCINE Unknown Completed [facility] Influenza Virus Vaccine Quad IM, Preserv and ABX Free 6 MO-64 YRS (FLUCELVAX) Unknown Completed [facility] SARS-COV-2 COVID-19 JOHANA-SUCROSE VACCINE 12 YRS+, BIVALENT 0.3ML, IM, (PFIZER ORTIZ TOP) Unknown Completed [facility] Influenza Virus Vaccine Quad IM, Preserv and ABX Free 6 MO-64 YRS (FLUCELVAX) Unknown Completed [facility] (hep a/hep b) Unknown Completed [facility] TDAP Unknown Completed [facility] Influenza Virus Vaccine Quad IM 3+ YRS Unknown Completed [facility] (hep a/hep b) Unknown Completed [facility] Influenza Virus Vaccine Quad .5 mL IM 6+ MO (FLUZONE/FLULAVAL/F LUARIX) Unknown Completed [facility] Pneumococcal 13 Conjugate, PCV13 (Prevnar 13) Unknown Completed [facility] (hep a/hep b) Unknown Completed [facility] Pneumococcal Polysaccharide, PPSV23 (PNEUMOVAX) Unknown Completed [facility] SARS-COV-2 COVID-19 PFIZER VACCINE Unknown Completed [facility] SARS-COV-2 COVID-19 PFIZER VACCINE Unknown Completed [facility] SARS-COV-2 COVID-19 PFIZER VACCINE Unknown Completed [facility] Influenza Virus Vaccine Quad IM, Preserv and ABX Free 6 MO-64 YRS (FLUCELVAX) Unknown Completed [facility] SARS-COV-2 COVID-19 JOHANA-SUCROSE VACCINE 12 YRS+, BIVALENT 0.3ML, IM, (PFIZER ORTIZ TOP) Unknown Completed [facility] Influenza Virus Vaccine Quad IM, Preserv and ABX Free 6 MO-64 YRS (FLUCELVAX) Unknown Completed [facility] (hep a/hep b) Unknown Completed [facility] TDAP Unknown Completed [facility] Influenza Virus Vaccine Quad IM 3+ YRS Unknown Completed [facility] (hep a/hep b) Unknown Completed [facility] Influenza Virus Vaccine Quad .5 mL IM 6+ MO (FLUZONE/FLULAVAL/F LUARIX) Unknown Completed [facility] Pneumococcal 13 Conjugate, PCV13 (Prevnar 13) Unknown Completed [facility] (hep a/hep b) Unknown Completed [facility] Pneumococcal Polysaccharide, PPSV23 (PNEUMOVAX) Unknown Completed [facility] SARS-COV-2 COVID-19 PFIZER VACCINE Unknown Completed [facility] SARS-COV-2 COVID-19 PFIZER VACCINE Unknown Completed [facility] SARS-COV-2 COVID-19 PFIZER VACCINE Unknown Completed [facility] Influenza Virus Vaccine Quad IM, Preserv and ABX Free 6 MO-64 YRS (FLUCELVAX) Unknown Completed [facility] SARS-COV-2 COVID-19 JOHANA-SUCROSE VACCINE 12 YRS+, BIVALENT 0.3ML, IM, (PFIZER ORTIZ TOP) Unknown Completed [facility] Influenza Virus Vaccine Quad IM, Preserv and ABX Free 6 MO-64 YRS (FLUCELVAX) Unknown Completed [facility] (hep a/hep b) Unknown Completed [facility] TDAP Unknown Completed [facility] Influenza Virus Vaccine Quad IM 3+ YRS Unknown Completed [facility] (hep a/hep b) Unknown Completed [facility] Influenza Virus Vaccine Quad .5 mL IM 6+ MO (FLUZONE/FLULAVAL/F LUARIX) Unknown Completed [facility] Pneumococcal 13 Conjugate, PCV13 (Prevnar 13) Unknown Completed [facility] (hep a/hep b) Unknown Completed [facility] Pneumococcal Polysaccharide, PPSV23 (PNEUMOVAX) Unknown Completed [facility] SARS-COV-2 COVID-19 PFIZER VACCINE Unknown Completed [facility] SARS-COV-2 COVID-19 PFIZER VACCINE Unknown Completed [facility] SARS-COV-2 COVID-19 PFIZER VACCINE Unknown Completed [facility] Influenza Virus Vaccine Quad IM, Preserv and ABX Free 6 MO-64 YRS (FLUCELVAX) Unknown Completed [facility] SARS-COV-2 COVID-19 JOHANA-SUCROSE VACCINE 12 YRS+, BIVALENT 0.3ML, IM, (PFIZER ORTIZ TOP) Unknown Completed [facility] Influenza Virus Vaccine Quad IM, Preserv and ABX Free 6 MO-64 YRS (FLUCELVAX) Unknown Completed [facility] (hep a/hep b) Unknown Completed [facility] TDAP Unknown Completed [facility] Influenza Virus Vaccine Quad IM 3+ YRS Unknown Completed [facility] (hep a/hep b) Unknown Completed [facility] Influenza Virus Vaccine Quad .5 mL IM 6+ MO (FLUZONE/FLULAVAL/F LUARIX) Unknown Completed [facility] Pneumococcal 13 Conjugate, PCV13 (Prevnar 13) Unknown [facility] [facility] (hep a/hep b) Unknown Completed [facility] Pneumococcal Polysaccharide, PPSV23 (PNEUMOVAX) Unknown Completed [facility] SARS-COV-2 COVID-19 PFIZER VACCINE Unknown Completed [facility] SARS-COV-2 COVID-19 PFIZER VACCINE Unknown Completed [facility] SARS-COV-2 COVID-19 PFIZER VACCINE Unknown Completed [facility] Influenza Virus Vaccine Quad IM, Preserv and ABX Free 6 MO-64 YRS (FLUCELVAX) Unknown Completed [facility] SARS-COV-2 COVID-19 JOHANA-SUCROSE VACCINE 12 YRS+, BIVALENT 0.3ML, IM, (PFIZER ORTIZ TOP) Unknown Completed [facility] Influenza Virus Vaccine Quad IM, Preserv and ABX Free 6 MO-64 YRS (FLUCELVAX) Unknown Completed [facility] (hep a/hep b) Unknown Completed [facility] TDAP Unknown Completed [facility] Influenza Virus Vaccine Quad IM 3+ YRS Unknown Completed [facility] (hep a/hep b) Unknown Completed [facility] Influenza Virus Vaccine Quad .5 mL IM 6+ MO (FLUZONE/FLULAVAL/F LUARIX) Unknown Completed [facility] Pneumococcal 13 Conjugate, PCV13 (Prevnar 13) Unknown Completed [facility] (hep a/hep b) Unknown Completed [facility] Pneumococcal Polysaccharide, PPSV23 (PNEUMOVAX) Unknown Completed [facility] SARS-COV-2 COVID-19 PFIZER VACCINE Unknown Completed [facility] SARS-COV-2 COVID-19 PFIZER VACCINE Unknown Completed [facility] SARS-COV-2 COVID-19 PFIZER VACCINE Unknown Completed [facility] Influenza Virus Vaccine Quad IM, Preserv and ABX Free 6 MO-64 YRS (FLUCELVAX) Unknown Completed [facility] SARS-COV-2 COVID-19 JOHANA-SUCROSE VACCINE 12 YRS+, BIVALENT 0.3ML, IM, (PFIZER ORTIZ TOP) Unknown Completed [facility] Influenza Virus Vaccine Quad IM, Preserv and ABX Free 6 MO-64 YRS (FLUCELVAX) Unknown Completed [facility] (hep a/hep b) Unknown Completed [facility] TDAP Unknown Completed [facility] Influenza Virus Vaccine Quad IM 3+ YRS Unknown Completed [facility] (hep a/hep b) Unknown Completed [facility] Influenza Virus Vaccine Quad .5 mL IM 6+ MO (FLUZONE/FLULAVAL/F LUARIX) Unknown Completed [facility] Pneumococcal 13 Conjugate, PCV13 (Prevnar 13) Unknown Completed [facility] (hep a/hep b) Unknown Completed [facility] Pneumococcal Polysaccharide, PPSV23 (PNEUMOVAX) Unknown Completed [facility] SARS-COV-2 COVID-19 PFIZER VACCINE Unknown Completed [facility] SARS-COV-2 COVID-19 PFIZER VACCINE Unknown Completed [facility] SARS-COV-2 COVID-19 PFIZER VACCINE Unknown Completed [facility] Influenza Virus Vaccine Quad IM, Preserv and ABX Free 6 MO-64 YRS (FLUCELVAX) Unknown Completed [facility] SARS-COV-2 COVID-19 JOHANA-SUCROSE VACCINE 12 YRS+, BIVALENT 0.3ML, IM, (PFIZER ORTIZ TOP) Unknown Completed [facility] Influenza Virus Vaccine Quad IM, Preserv and ABX Free 6 MO-64 YRS (FLUCELVAX) Unknown Completed [facility] Twin[facility] (hep a/hep b) Unknown Completed [facility] TDAP Unknown Completed [facility] Influenza Virus Vaccine Quad IM 3+ YRS Unknown Completed [facility] (hep a/hep b) Unknown Completed [facility] Influenza Virus Vaccine Quad .5 mL IM 6+ MO (FLUZONE/FLULAVAL/F LUARIX) Unknown Completed [facility] Pneumococcal 13 Conjugate, PCV13 (Prevnar 13) Unknown Completed [facility] (hep a/hep b) Unknown Completed [facility] Pneumococcal Polysaccharide, PPSV23 (PNEUMOVAX) Unknown Completed [facility] SARS-COV-2 COVID-19 PFIZER VACCINE Unknown Completed [facility] SARS-COV-2 COVID-19 PFIZER VACCINE Unknown Completed [facility] SARS-COV-2 COVID-19 PFIZER VACCINE Unknown Completed [facility] Influenza Virus Vaccine Quad IM, Preserv and ABX Free 6 MO-64 YRS (FLUCELVAX) Unknown Completed [facility] SARS-COV-2 COVID-19 JOHANA-SUCROSE VACCINE 12 YRS+, BIVALENT 0.3ML, IM, (PFIZER ORTIZ TOP) Unknown Completed [facility] Influenza Virus Vaccine Quad IM, Preserv and ABX Free 6 MO-64 YRS (FLUCELVAX) Unknown Completed [facility] (hep a/hep b) Unknown Completed [facility] TDAP Unknown Completed [facility] Influenza Virus Vaccine Quad IM 3+ YRS Unknown Completed [facility] (hep a/hep b) Unknown Completed [facility] Influenza Virus Vaccine Quad .5 mL IM 6+ MO (FLUZONE/FLULAVAL/F LUARIX) Unknown Completed [facility] Pneumococcal 13 Conjugate, PCV13 (Prevnar 13) Unknown Completed [facility] (hep a/hep b) Unknown Completed [facility] Pneumococcal Polysaccharide, PPSV23 (PNEUMOVAX) Unknown Completed [facility] SARS-COV-2 COVID-19 PFIZER VACCINE Unknown Completed [facility] SARS-COV-2 COVID-19 PFIZER VACCINE Unknown Completed [facility] SARS-COV-2 COVID-19 PFIZER VACCINE Unknown Completed [facility] Influenza Virus Vaccine Quad IM, Preserv and ABX Free 6 MO-64 YRS (FLUCELVAX) Unknown Completed [facility] SARS-COV-2 COVID-19 JOHANA-SUCROSE VACCINE 12 YRS+, BIVALENT 0.3ML, IM, (PFIZER ORTIZ TOP) Unknown Completed [facility] Influenza Virus Vaccine Quad IM, Preserv and ABX Free 6 MO-64 YRS (FLUCELVAX) Unknown Completed [facility] (hep a/hep b) Unknown Completed [facility] TDAP Unknown Completed [facility] Influenza Virus Vaccine Quad IM 3+ YRS Unknown Completed [facility] (hep a/hep b) Unknown Completed [facility] Influenza Virus Vaccine Quad .5 mL IM 6+ MO (FLUZONE/FLULAVAL/F LUARIX) Unknown Completed [facility] Pneumococcal 13 Conjugate, PCV13 (Prevnar 13) Unknown Completed [facility] (hep a/hep b) Unknown Completed [facility] Pneumococcal Polysaccharide, PPSV23 (PNEUMOVAX) Unknown Completed [facility] SARS-COV-2 COVID-19 PFIZER VACCINE Unknown Completed [facility] SARS-COV-2 COVID-19 PFIZER VACCINE Unknown Completed [facility] SARS-COV-2 COVID-19 PFIZER VACCINE Unknown Completed [facility] Influenza Virus Vaccine Quad IM, Preserv and ABX Free 6 MO-64 YRS (FLUCELVAX) Unknown Completed [facility] SARS-COV-2 COVID-19 JOHANA-SUCROSE VACCINE 12 YRS+, BIVALENT 0.3ML, IM, (PFIZER ORTIZ TOP) Unknown Completed [facility] Influenza Virus Vaccine Quad IM, Preserv and ABX Free 6 MO-64 YRS (FLUCELVAX) Unknown Completed [facility] (hep a/hep b) Unknown Completed [facility] TDAP Unknown Completed [facility] Influenza Virus Vaccine Quad IM 3+ YRS Unknown Completed [facility] (hep a/hep b) Unknown Completed [facility] Influenza Virus Vaccine Quad .5 mL IM 6+ MO (FLUZONE/FLULAVAL/F LUARIX) Unknown Completed [facility] Pneumococcal 13 Conjugate, PCV13 (Prevnar 13) Unknown Completed [facility] (hep a/hep b) Unknown Completed [facility] Pneumococcal Polysaccharide, PPSV23 (PNEUMOVAX) Unknown Completed [facility] SARS-COV-2 COVID-19 PFIZER VACCINE Unknown Completed [facility] SARS-COV-2 COVID-19 PFIZER VACCINE Unknown Completed [facility] SARS-COV-2 COVID-19 PFIZER VACCINE Unknown Completed [facility] Influenza Virus Vaccine Quad IM, Preserv and ABX Free 6 MO-64 YRS (FLUCELVAX) Unknown Completed [facility] SARS-COV-2 COVID-19 JOHANA-SUCROSE VACCINE 12 YRS+, BIVALENT 0.3ML, IM, (PFIZER ORTIZ TOP) Unknown Completed [facility] Influenza Virus Vaccine Quad IM, Preserv and ABX Free 6 MO-64 YRS (FLUCELVAX) Unknown Completed [facility] (hep a/hep b) Unknown Completed [facility] TDAP Unknown Completed [facility] Influenza Virus Vaccine Quad IM 3+ YRS Unknown Completed [facility] (hep a/hep b) Unknown Completed [facility] Influenza Virus Vaccine Quad .5 mL IM 6+ MO (FLUZONE/FLULAVAL/F LUARIX) Unknown Completed [facility] Pneumococcal 13 Conjugate, PCV13 (Prevnar 13) Unknown Completed [facility] (hep a/hep b) Unknown Completed [facility] Pneumococcal Polysaccharide, PPSV23 (PNEUMOVAX) Unknown Completed [facility] SARS-COV-2 COVID-19 PFIZER VACCINE Unknown Completed [facility] SARS-COV-2 COVID-19 PFIZER VACCINE Unknown Completed [facility] SARS-COV-2 COVID-19 PFIZER VACCINE Unknown Completed [facility] Influenza Virus Vaccine Quad IM, Preserv and ABX Free 6 MO-64 YRS (FLUCELVAX) Unknown Completed [facility] SARS-COV-2 COVID-19 JOHANA-SUCROSE VACCINE 12 YRS+, BIVALENT 0.3ML, IM, (PFIZER ORTIZ TOP) Unknown Completed [facility] Influenza Virus Vaccine Quad IM, Preserv and ABX Free 6 MO-64 YRS (FLUCELVAX) Unknown Completed [facility] (hep a/hep b) Unknown Completed [facility] TDAP Unknown Completed [facility] Influenza Virus Vaccine Quad IM 3+ YRS Unknown Completed [facility] (hep a/hep b) Unknown Completed [facility] Influenza Virus Vaccine Quad .5 mL IM 6+ MO (FLUZONE/FLULAVAL/F LUARIX) Unknown Completed [facility] Pneumococcal 13 Conjugate, PCV13 (Prevnar 13) Unknown Completed [facility] (hep a/hep b) Unknown Completed [facility] Pneumococcal Polysaccharide, PPSV23 (PNEUMOVAX) Unknown Completed [facility] SARS-COV-2 COVID-19 PFIZER VACCINE Unknown Completed [facility] SARS-COV-2 COVID-19 PFIZER VACCINE Unknown Completed [facility] SARS-COV-2 COVID-19 PFIZER VACCINE Unknown Completed [facility] Influenza Virus Vaccine Quad IM, Preserv and ABX Free 6 MO-64 YRS (FLUCELVAX) Unknown Completed [facility] SARS-COV-2 COVID-19 JOHANA-SUCROSE VACCINE 12 YRS+, BIVALENT 0.3ML, IM, (PFIZER ORTIZ TOP) Unknown Completed [facility] Influenza Virus Vaccine Quad IM, Preserv and ABX Free 6 MO-64 YRS (FLUCELVAX) Unknown Completed [facility] (hep a/hep b) Unknown Completed [facility] TDAP Unknown Completed [facility] Influenza Virus Vaccine Quad IM 3+ YRS Unknown Completed [facility] (hep a/hep b) Unknown Completed [facility] Influenza Virus Vaccine Quad .5 mL IM 6+ MO (FLUZONE/FLULAVAL/F LUARIX) Unknown Completed [facility] Pneumococcal 13 Conjugate, PCV13 (Prevnar 13) Unknown Completed [facility] (hep a/hep b) Unknown Completed [facility] Pneumococcal Polysaccharide, PPSV23 (PNEUMOVAX) Unknown Completed [facility] SARS-COV-2 COVID-19 PFIZER VACCINE Unknown Completed [facility] SARS-COV-2 COVID-19 PFIZER VACCINE Unknown Completed [facility] SARS-COV-2 COVID-19 PFIZER VACCINE Unknown Completed [facility] Influenza Virus Vaccine Quad IM, Preserv and ABX Free 6 MO-64 YRS (FLUCELVAX) Unknown Completed [facility] SARS-COV-2 COVID-19 JOHANA-SUCROSE VACCINE 12 YRS+, BIVALENT 0.3ML, IM, (PFIZER ORTIZ TOP) Unknown Completed [facility] Influenza Virus Vaccine Quad IM, Preserv and ABX Free 6 MO-64 YRS (FLUCELVAX) Unknown Completed [facility] (hep a/hep b) Unknown Completed [facility] TDAP Unknown Completed [facility] Influenza Virus Vaccine Quad IM 3+ YRS Unknown Completed [facility] (hep a/hep b) Unknown Completed [facility] Influenza Virus Vaccine Quad .5 mL IM 6+ MO (FLUZONE/FLULAVAL/F LUARIX) Unknown Completed [facility] Pneumococcal 13 Conjugate, PCV13 (Prevnar 13) Unknown Completed [facility] (hep a/hep b) Unknown Completed [facility] Pneumococcal Polysaccharide, PPSV23 (PNEUMOVAX) Unknown Completed [facility] SARS-COV-2 COVID-19 PFIZER VACCINE Unknown Completed [facility] SARS-COV-2 COVID-19 PFIZER VACCINE Unknown Completed [facility] SARS-COV-2 COVID-19 PFIZER VACCINE Unknown Completed [facility] Influenza Virus Vaccine Quad IM, Preserv and ABX Free 6 MO-64 YRS (FLUCELVAX) Unknown Completed [facility] SARS-COV-2 COVID-19 JOHANA-SUCROSE VACCINE 12 YRS+, BIVALENT 0.3ML, IM, (PFIZER ORTIZ TOP) Unknown Completed [facility] Influenza Virus Vaccine Quad IM, Preserv and ABX Free 6 MO-64 YRS (FLUCELVAX) Unknown Completed [facility] (hep a/hep b) Unknown Completed [facility] TDAP Unknown Completed [facility] Influenza Virus Vaccine Quad IM 3+ YRS Unknown Completed [facility] (hep a/hep b) Unknown Completed [facility] Influenza Virus Vaccine Quad .5 mL IM 6+ MO (FLUZONE/FLULAVAL/F LUARIX) Unknown Completed [facility] Pneumococcal 13 Conjugate, PCV13 (Prevnar 13) Unknown Completed [facility] (hep a/hep b) Unknown Completed [facility] Pneumococcal Polysaccharide, PPSV23 (PNEUMOVAX) Unknown Completed [facility] SARS-COV-2 COVID-19 PFIZER VACCINE Unknown Completed [facility] SARS-COV-2 COVID-19 PFIZER VACCINE Unknown Completed [facility] SARS-COV-2 COVID-19 PFIZER VACCINE Unknown Completed [facility] Influenza Virus Vaccine Quad IM, Preserv and ABX Free 6 MO-64 YRS (FLUCELVAX) Unknown Completed [facility] SARS-COV-2 COVID-19 JOHANA-SUCROSE VACCINE 12 YRS+, BIVALENT 0.3ML, IM, (PFIZER ORTIZ TOP) Unknown Completed [facility] Influenza Virus Vaccine Quad IM, Preserv and ABX Free 6 MO-64 YRS (FLUCELVAX) Unknown Completed [facility] (hep a/hep b) Unknown Completed [facility] TDAP Unknown Completed [facility] Influenza Virus Vaccine Quad IM 3+ YRS Unknown Completed [facility] (hep a/hep b) Unknown Completed [facility] Influenza Virus Vaccine Quad .5 mL IM 6+ MO (FLUZONE/FLULAVAL/F LUARIX) Unknown Completed [facility] Pneumococcal 13 Conjugate, PCV13 (Prevnar 13) Unknown Completed [facility] (hep a/hep b) Unknown Completed [facility] Pneumococcal Polysaccharide, PPSV23 (PNEUMOVAX) Unknown Completed [facility] SARS-COV-2 COVID-19 PFIZER VACCINE Unknown Completed [facility] SARS-COV-2 COVID-19 PFIZER VACCINE Unknown Completed [facility] SARS-COV-2 COVID-19 PFIZER VACCINE Unknown Completed [facility] Influenza Virus Vaccine Quad IM, Preserv and ABX Free 6 MO-64 YRS (FLUCELVAX) Unknown Completed [facility] SARS-COV-2 COVID-19 JOHANA-SUCROSE VACCINE 12 YRS+, BIVALENT 0.3ML, IM, (PFIZER ORTIZ TOP) Unknown Completed [facility] Influenza Virus Vaccine Quad IM, Preserv and ABX Free 6 MO-64 YRS (FLUCELVAX) Unknown Completed [facility] (hep a/hep b) Unknown Completed [facility] TDAP Unknown Completed [facility] Influenza Virus Vaccine Quad IM 3+ YRS Unknown Completed [facility] (hep a/hep b) Unknown Completed [facility] Influenza Virus Vaccine Quad .5 mL IM 6+ MO (FLUZONE/FLULAVAL/F LUARIX) Unknown Completed [facility] Pneumococcal 13 Conjugate, PCV13 (Prevnar 13) Unknown Completed [facility] (hep a/hep b) Unknown Completed [facility] Pneumococcal Polysaccharide, PPSV23 (PNEUMOVAX) Unknown Completed [facility] SARS-COV-2 COVID-19 PFIZER VACCINE Unknown Completed [facility] SARS-COV-2 COVID-19 PFIZER VACCINE Unknown Completed [facility] SARS-COV-2 COVID-19 PFIZER VACCINE Unknown Completed [facility] Influenza Virus Vaccine Quad IM, Preserv and ABX Free 6 MO-64 YRS (FLUCELVAX) Unknown Completed [facility] SARS-COV-2 COVID-19 JOHANA-SUCROSE VACCINE 12 YRS+, BIVALENT 0.3ML, IM, (PFIZER ORTIZ TOP) Unknown Completed [facility] Influenza Virus Vaccine Quad IM, Preserv and ABX Free 6 MO-64 YRS (FLUCELVAX) Unknown Completed [facility] Vital Signs Vital Name Observation Time Observation Value Comments S ource Systolic blood pressure 2023-08-29 17:11:00 113 mm[Hg] [facility] Diastolic blood pressure 2023-08-29 17:11:00 76 mm[Hg] [facility] Heart rate 2023-08-29 17:11:00 79 /min [facility] Body temperature 2023-08-29 17:11:00 35.61 Divya [facility] Respiratory rate 2023-08-29 17:11:00 16 /min [facility] Body height 2023-08-29 17:11:00 182.9 cm [facility] Body weight 2023-08-29 17:11:00 82.146 kg [facility] BMI 2023-08-29 17:11:00 24.56 kg/m2 [facility] Oxygen saturation in Arterial blood by Pulse oximetry 2023-08-29 17:11:00 97 /min [facility] Systolic blood pressure 2023-08-10 16:54:00 125 mm[Hg] [facility] Diastolic blood pressure 2023-08-10 16:54:00 84 mm[Hg] [facility] Heart rate 2023-08-10 16:54:00 87 /min [facility] Body temperature 2023-08-10 16:54:00 36.56 Divya [facility] Respiratory rate 2023-08-10 16:54:00 18 /min [facility] Body height 2023-08-10 16:54:00 182.9 cm [facility] Body weight 2023-08-10 16:54:00 80.287 kg [facility] BMI 2023-08-10 16:54:00 24.01 kg/m2 [facility] Oxygen saturation in Arterial blood by Pulse oximetry 2023-08-10 16:54:00 97 /min [facility] Systolic blood pressure 2023-04-14 04:43:00 123 mm[Hg] [facility] Diastolic blood pressure 2023-04-14 04:43:00 79 mm[Hg] [facility] Heart rate 2023-04-14 04:43:00 68 /min [facility] Respiratory rate 2023-04-14 04:43:00 20 /min [facility] Oxygen saturation in Arterial blood by Pulse oximetry 2023-04-14 04:43:00 100 /min [facility] Body temperature 2023-04-14 02:11:00 37 Divya [facility] Body height 2023-04-14 02:11:00 182.9 cm [facility] Body weight 2023-04-14 02:11:00 80.74 kg [facility] BMI 2023-04-14 02:11:00 24.14 kg/m2 [facility] Systolic blood pressure 2023-03-11 16:22:00 110 mm[Hg] [facility] Diastolic blood pressure 2023-03-11 16:22:00 83 mm[Hg] [facility] Heart rate 2023-03-11 16:22:00 87 /min [facility] Body temperature 2023-03-11 16:22:00 36 Divya [facility] Respiratory rate 2023-03-11 16:22:00 14 /min [facility] Oxygen saturation in Arterial blood by Pulse oximetry 2023-03-11 16:22:00 99 /min [facility] Body weight 2023-03-11 09:04:00 79.969 kg [facility] BMI 2023-03-11 09:04:00 23.91 kg/m2 [facility] Body height 2023-03-09 17:48:00 182.9 cm [facility] Systolic blood pressure 2023-02-17 15:46:00 114 mm[Hg] [facility] Diastolic blood pressure 2023-02-17 15:46:00 74 mm[Hg] [facility] Heart rate 2023-02-17 15:46:00 87 /min [facility] Body temperature 2023-02-17 15:46:00 36.61 Divya [facility] Respiratory rate 2023-02-17 15:46:00 18 /min [facility] Body height 2023-02-17 15:46:00 182.9 cm [facility] Body weight 2023-02-17 15:46:00 82.328 kg [facility] BMI 2023-02-17 15:46:00 24.62 kg/m2 [facility] Oxygen saturation in Arterial blood by Pulse oximetry 2023-02-17 15:46:00 98 /min room air [facility] Systolic blood pressure 2022-11-25 15:45:00 119 mm[Hg] [facility] Diastolic blood pressure 2022-11-25 15:45:00 77 mm[Hg] [facility] Heart rate 2022-11-25 15:45:00 94 /min [facility] Body temperature 2022-11-25 15:45:00 34.67 Divya [facility] Respiratory rate 2022-11-25 15:45:00 18 /min [facility] Body height 2022-11-25 15:45:00 182[facility]9 [facility] 2022-11-25 15:45:00 83.915 kg [facility] BMI 2022-11-25 15:45:00 25.09 kg/m2 [facility] Oxygen saturation in Arterial blood by Pulse oximetry 2022-11-25 15:45:00 98 /min [facility] Systolic blood pressure 2022-08-26 15:24:00 130 mm[Hg] [facility] Diastolic blood pressure 2022-08-26 15:24:00 82 mm[Hg] [facility] Heart rate 2022-08-26 15:24:00 85 /min [facility] Body temperature 2022-08-26 15:24:00 36.39 Divya [facility] Respiratory rate 2022-08-26 15:24:00 18 /min [facility] Body height 2022-08-26 15:24:00 182.9 cm [facility] Body weight 2022-08-26 15:24:00 84.596 kg [facility] BMI 2022-08-26 15:24:00 25.29 kg/m2 [facility] Systolic blood pressure 2022-08-08 23:18:00 99 mm[Hg] [facility] Diastolic blood pressure 2022-08-08 23:18:00 79 mm[Hg] [facility] Heart rate 2022-08-08 23:18:00 95 /min [facility] Body temperature 2022-08-08 23:18:00 36.61 Divya [facility] Respiratory rate 2022-08-08 23:18:00 18 /min [facility] Body height 2022-08-08 23:18:00 182.9 cm [facility] Body weight 2022-08-08 23:18:00 80.74 kg [facility] BMI 2022-08-08 23:18:00 24.14 kg/m2 [facility] Oxygen saturation in Arterial blood by Pulse oximetry 2022-08-08 23:18:00 97 /min [facility] Body weight 2022-04-05 18:03:00 82.555 kg deferred [facility] BMI 2022-04-05 18:03:00 24.68 kg/m2 [facility] Body temperature 2022-03-29 16:53:00 36.22 Divya [facility] Body weight 2022-03-29 16:53:00 82.555 kg [facility] BMI 2022-03-29 16:53:00 24.68 kg/m2 [facility] Body weight 2022-03-22 18:56:00 82.781 kg [facility] BMI 2022-03-22 18:56:00 24.75 kg/m2 [facility] Procedures Procedure Date / Time Performed Performing Clinicia n Source US GALL BLADDER 2023-04-14 04:57:02 Liseth Gamez [facility] URINALYSIS 2023-04-14 04:49:00 Liseth Gamez U [facility] CT ABDOMEN PELVIS W CONTRAST 2023-04-14 03:20:00 Liseth Gamez [facility] LIPASE 2023-04-14 03:02:00 Liseth Gamez U [facility] TROPONIN I 2023-04-14 03:02:00 Liseth Gamez [facility] COMP. METABOLIC PANEL (61142) 2023-04-14 03:02:00 Liseth Gamez [facility] CBC WITH DIFF 2023-04-14 03:02:00 Liseth Gamez [facility] N-TERMINAL PRO-BNP 2023-04-14 03:02:00 Lenan Gamez [facility] LACTIC ACID WHOLE BLOOD 2023-04-14 03:02:00 Liseth Gamez [facility] CONSENT/REFUSAL FOR DIAGNOSIS AND TREATMENT 2023-04-14 02:06:04 Doctor Unassigned, Malott [facility] BASIC METABOLIC PANEL (NA, K, CL, CO2, GLUCOSE, BUN, CREATININE, CA) 2023-03-11 09:36:00 Russ Donna Boucher [facility] CBC WITH DIFF 2023-03-11 09:36:00 Donna Solano Citlaly [facility] VANCOMYCIN TROUGH 2023-03-11 02:17:00 Ruthie Marthafrancine Martinez ie P [facility] CT HAND RIGHT W CONTRAST 2023-03-10 20:03:49 Donna Solano [facility] MAGNESIUM 2023-03-10 10:15:00 Meghana Russell [facility] BASIC METABOLIC PANEL (NA, K, CL, CO2, GLUCOSE, BUN, CREATININE, CA) 2023-03-10 10:15:00 Meghana Russell [facility] CBC WITH DIFF 2023-03-10 10:15:00 Meghana Russell [facility] MRSA / MSSA SCREEN BY PCR, NARES 2023-03-09 22:13:00 Meghana Russell [facility] BLOOD CULTURE SCREEN 2023-03-09 14:39:00 Guillermo Cartagena [facility] COMP. METABOLIC PANEL (66882) 2023-03-09 14:39:00 Fabiola Cartagena [facility] CBC WITH DIFF 2023-03-09 14:39:00 Fabiola Cartagena [facility] NOTICE OF PRIVACY PRACTICES 2023-03-09 13:56:14 Doctor Unassigned, Malott [facility] CONSENT/REFUSAL FOR DIAGNOSIS AND TREATMENT 2023-03-09 13:54:37 Doctor Unassigned, Malott [facility] FLU VACC (), 6 MO-64 YRS, .5ML, IM, QUAD (FLUCELVAX) 2022-08-26 16:27:05 Bonnie Sood [facility] SARS-COV-2 COVID-19 JOHANA-SUCROSE VACCINE 12 YRS+, BIVALENT 0.3ML, IM, (PFIZER ORTIZ TOP BOOSTER) 2022-08-26 16:27:05 Bonnie Sood [facility] LACTIC ACID WHOLE BLOOD 2022-08-09 00:41:00 Josse Carr [facility] BLOOD CULTURE SCREEN 2022-08-09 00:40:00 Marc Carr [facility] COMP. METABOLIC PANEL (17220) 2022-08-09 00:40:00 Josse Carr [facility] CBC WITH DIFF 2022-08-09 00:40:00 Josse Carr [facility] CONSENT/REFUSAL FOR DIAGNOSIS AND TREATMENT 2022-08-08 23:03:16 Doctor Unassigned, Malott [facility] Encounters Start Date/Time End Date/Time Encounter Type Admission Type Attending [facility] Emergency Department Facility Care Department Encounter ID Source 2022-06-10 12:40:01 Outpatient CHW [facility]W [id number] [facility] 2021 10:29:04 Emergency [facility] [id number] [facility] 2021-07-11 22:52:28 Emergency [facility] [id number] [facility] 2021-07-11 03:13:26 Emergency [facility] [id number] [facility] 2023-11-03 15:00:00 2023-11-03 15:00:00 Outpatient KALLI FONSECA [facility] [id number] [facility] 2023-11-02 00:00:00 2023-11-02 00:00:00 Case Management Lina Phelps [facility] .840.114 350.1.13.10 4.2.7.2.686 [id number] 089 [id number] [facility] 2023-10-20 15:00:00 2023-10-20 16:00:00 Telemedici ne Visit Kalli Stevens [facility] .840.114 350.1.13.10 4.2.7.2.686 [id number] 089 [id number] [facility] 2023-10-20 15:00:00 2023-10-20 15:00:00 Outpatient KALLI FONSECA [facility] [id number] [facility] 2023-10-19 00:00:00 2023-10-19 00:00:00 Telephone Lina Phelps Elisabeth [facility] 1.2.840.114 350.1.13.10 4.2.7.2.686 [id number] [id number] [facility] 2023-10-18 00:00:00 2023-10-18 00:00:[address] Beatriz Su [facility] 1.2.840.114 350.1.13.10 4.2.7.2.686 [id number] [id number] [facility] 2023-10-14 00:00:00 2023-10-14 00:00:00 Telephone Lina Phelps Elisabeth [facility] 1.2.840.114 350.1.13.10 4.2.7.2.686 [id number] 089 [id number] [facility] 2023-10-13 15:00:00 2023-10-13 16:00:00 Office Visit Kalli Stevens [facility] 1.2840.114 350.1.13.10 4.2.7.2.686 [id number] 089 [id number] [facility] 2023-10-13 15:00:00 2023-10-13 15:00:00 Outpatient KALLI FONSECA [facility] [id number] [facility] 2023-10-12 00:00:00 2023-10-12 00:00:00 Telephone Lina Phelps [facility] 1.2840.114 350.1.13.10 4.2.7.2.686 [id number] 089 [id number] [facility] 2023-10-06 10:00:00 2023-10-06 10:00:00 Outpatient STANLEY AVILA CHRISTOPHER [facility] [id number] [facility] 2023-10-06 00:00:00 2023-10-06 00:00:[address] [facility] 1.2.840.114 350.1.13.10 4.2.7.2.686 [id number] 089 [id number] [facility] 2023-10-05 00:00:00 2023-10-05 00:00:[address] [facility] 1.2.840.114 350.1.13.10 4.2.7.2.686 [id number] 089 [id number] [facility] 2023-09-14 00:00:00 2023-09-14 00:00:00 Case Management Lina Merritt [facility] 1.2.840.114 350.1.13.10 4.2.7.2.686 [id number] 089 [id number] [facility] 2023-09-10 00:00:00 2023-09-10 00:00:00 Outpatient MEGHANA LAWTON [facility] [id number] [facility] 2023-09-01 00:00:00 2023-09-01 00:00:00 Case Management Kenneth Choudhary 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 [facility] Elsa [facility] 1.2840.114 350.1.13.10 4.2.7.2.686 [id number] [facility] 2023-08-29 10:30:00 2023-08-29 11:00:00 Office Visit Elsa [facility] 1.2.840.114 350.1.13.10 4.2.7.2.686 [id number] 089 [id number] [facility] 2023-08-29 10:30:00 2023-08-29 10:30:00 Outpatient STANLEY AVILA CHRISTOPHER [facility] [id number] [facility] 2023-08-29 00:00:00 2023-08-29 00:00:00 Case Management Mary Fernando PLAANN 1.0.114 350.1.13.10 4.2.7.2.686 [id number] 086 [id number] [facility] 2023-08-29 00:00:00 2023-08-29 00:00:00 Case Management Dm Chan [facility] 1.0.114 350.1.13.10 4.2.7.2.686 [id number] 089 [id number] [facility] 2023-08-25 11:00:00 2023-08-25 11:00:00 Outpatient KALLI FONSECA [facility] [id number] [facility] 2023-08-25 00:00:00 2023-08-25 00:00:[address] [facility] 1.0.114 350.1.13.10 4.2.7.2.686 [id number] 089 [id number] [facility] 2023-08-22 00:00:00 2023-08-22 00:00:00 Case Management Renee Lorenzo [facility] 1.2840.114 350.1.13.10 4.2.7.2.686 [id number] 089 [id number] [facility] 2023-08-19 00:00:00 2023-08-19 00:00:00 Case Management Kassie Danyroman Dash [facility] [address] 1.2.114 350.1.13.10 4.2.7.2.686 [id number] 086 [id number] [facility] 2023-08-11 00:00:00 2023-08-11 00:00:00 Case Management KassieMary CHELSIForeign [place] 1.2.840.114 350.1.13.10 4.2.7.2.686 [id number] 086 [id number] [facility] 2023-08-10 10:30:00 2023-08-10 11:00:00 Office Visit Stanley Hunter [facility] 1.2.840.114 350.1.13.10 4.2.7.2.686 [id number] 089 [id number] [facility] 2023-08-10 10:30:00 2023-08-10 10:30:00 Outpatient R STANLEY HUNTER [facility]STOP[facility] [id number] [facility] 2023-08-10 00:00:00 2023-08-10 00:00:00 Case Management Lina Merritt [facility] 1.2.840.114 350.1.13.10 4.2.7.2.686 [id number] 089 [id number] [facility] 2023-08-10 00:00:00 2023-08-10 00:00:00 Case Management Gab [facility] 1.2.840.114 350.1.13.10 4.2.7.2.686 [id number] 089 [id number] [facility] 2023-08-09 00:00:00 2023-08-09 00:00:[address] [facility] 1.2.840.114 350.1.13.10 4.2.7.2.686 [id number] 089 [id number] [facility] 2023-08-03 00:00:00 2023-08-03 00:00:00 Case Management Gab [facility] 1.2.840.114 350.1.13.10 4.2.7.2.686 [id number] 089 [id number] [facility] 2023-08-03 00:00:00 2023-08-03 00:00:00 Case Management Barbara De Guzman [facility] 1.84.114 350.1.13.10 4.2.7.2.686 [id number] 089 [id number] [facility] 2023-08-02 00:00:00 2023-08-02 00:00:00 Case Management LorenzoFlynn Songvishal Guillen [facility] 1.84.114 350.1.13.10 4.2.7.2.686 [id number] 089 [id number] [facility] 2023-05-24 08:30:00 2023-05-24 08:30:00 Outpatient ALANNA CHRISTINE [facility] [id number] [facility] 2023-05-12 00:00:00 2023-05-12 00:00:00 Case Management Silvia Choudharyn Wilmer [facility] 1.840.114 350.1.13.10 4.2.7.2.686 [id number] [id number] [facility] 2023-04-13 21:18:00 2023-04-14 01:16:00 Emergency X LISETH GAMEZ [facility] ERT [id number] [facility] 2023-04-13 21:18:00 2023-04-14 01:16:00 Emergency Lsieth Gamez [facility] 1.840.114 350.1.13.10 4.2.7.2.686 [id number] 084 [id number] [facility] 2023-03-09 09:00:00 2023-03-11 12:33:00 Outpatient MEGHANA MURDOCK [facility] KIMO [id number] [facility] 2023-03-09 09:00:00 2023-03-11 12:33:00 Emergency Fabiola Cartagena David [facility] 1.0.114 350.1.13.10 4.2.7.2.686 [id number] [id number] [facility] 2023-03-08 00:00:00 2023-03-08 00:00:00 Patient Secure Msg Doctor Unassigned, Malott [facility] 1.0.114 350.1.13.10 4.2.7.2.686 [id number] 044 [id number] [facility] 2023-02-17 10:30:00 2023-02-17 11:00:00 Office Visit Bonnie Sood David 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 1..114 350.1.13.10 4.2.7.2.686 [id number] [facility] 2023-02-16 00:00:00 2023-02-16 00:00:[address] [facility] 1.114 350.1.13.10 4.2.7.2.686 [id number] 089 [id number] [facility] 2023-02-11 00:00:00 2023-02-11 00:00:[address] [facility] 1..114 350.1.13.10 4.2.7.2.686 [id number] 089 [id number] [facility] 2023-01-27 10:00:00 2023-01-27 10:00:00 Outpatient R [facility] [id number] [facility] 2023-01-27 00:00:00 2023-01-27 00:00:[address] [facility] 1.2.840.114 350.1.13.10 4.2.7.2.686 [id number] 089 [id number] [facility] 2023-01-21 00:00:00 2023-01-21 00:00:00 Case Management Renee Lorenzo L [facility] 1.2.840.114 350.1.13.10 4.2.7.2.686 [id number] 089 [id number] [facility] 2023-01-13 00:00:00 2023-01-13 00:00:00 Case Management Kenneth Choudhary [facility] 1.2840.114 350.1.13.10 4.2.7.2.686 [id number] 089 [id number] [facility] 2022-12-29 00:00:00 2022-12-29 00:00:00 Case Management Jannie Phelpsyl R [facility] 1.2840.114 350.1.13.10 4.2.7.2.686 [id number] 089 [id number] [facility] 2022-12-02 10:15:00 2022-12-02 10:15:00 Outpatient R INDIGO VICTOR [facility] [id number] [facility] 2022-11-25 10:00:00 2022-11-25 10:30:00 Office Visit Bonnie Sood David [facility] 1..114 350.1.13.10 4.2.7.2.686 [id number] 089 [id number] [facility] 2022-11-25 10:00:00 2022-11-25 10:00:00 Outpatient MEGHANA LAWTON [facility] [id number] [facility] 2022-11-24 00:00:00 2022-11-24 00:00:[address] 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 Visit [facility] 1.2.840.114 350.1.13.10 4.2.7.2.686 [id number] [facility] 2022-09-08 00:00:00 2022-09-08 00:00:00 Telephone Alvaro [facility] 1.2.840.114 350.1.13.10 4.2.7.2.686 [id number] 089 [id number] [facility] 2022-08-31 00:00:00 2022-08-31 00:00:00 [facility] 1.2.840.114 350.1.13.10 4.2.7.2.686 [id number] 089 [id number] [facility] 2022-08-31 00:00:00 2022-08-31 00:00:00 [facility] 1.2.840.114 350.1.13.10 4.2.7.2.686 [id number] 089 [id number] [facility] 2022-08-27 00:00:00 2022-08-27 00:00:00 Patient [facility] 1.840.114 350.1.13.10 4.2.7.2.686 [id number] 089 [id number] [facility] 2022-08-26 09:30:00 2022-08-26 10:00:00 Office Visit [facility] 1.84.114 350.1.13.10 4.2.7.2.686 [id number] 089 [id number] [facility] 2022-08-26 09:30:00 2022-08-26 09:30:00 Outpatient MEGHANA LAWTON [facility] [id number] [facility] 2022-08-19 09:00:00 2022-08-19 09:00:00 Outpatient MEGHANA LAWTON [facility] [id number] [facility] 2022-08-18 00:00:00 2022-08-18 00:00:00 Case Management Renee Lorenzo [facility] 1.840.114 350.1.13.10 4.2.7.2.686 [id number] [id number] [facility] 2022-08-17 13:00:00 2022-08-17 13:00:00 Outpatient KALLI ARAIZA [facility] [id number] [facility] 2022-08-17 00:00:00 2022-08-17 00:00:00 Patient Secure Msg Doctor Unassigned, Malott [facility] 1.840.114 350.1.13.10 4.2.7.2.686 [id number] [facility] 2022-08-17 00:00:00 2022-08-17 00:00:00 Patient Secure Msg Doctor Unassigned, Malott [facility] 1.2840.114 350.1.13.10 4.2.7.2.686 [id number] 089 [id number] [facility] 2022-08-16 00:00:00 2022-08-16 00:00:[address] Beatriz Su [facility] 1.2840.114 350.1.13.10 4.2.7.2.686 [id number] 089 [id number] [facility] 2022-08-16 00:00:00 2022-08-16 00:00:00 Telephone Alvaro [facility] 1.2840.114 350.1.13.10 4.2.7.2.686 [id number] 089 [id number] [facility] 2022-08-16 00:00:00 2022-08-16 00:00:[address] [facility] 1.2.840.114 350.1.13.10 4.2.7.2.686 [id number] 089 [id number] [facility] 2022-08-16 00:00:00 2022-08-16 00:00:00 Patient Secure Msg Alvaro [facility] 1.2.840.114 350.1.13.10 4.2.7.2.686 [id number] 089 [id number] [facility] 2022-08-16 00:00:00 2022-08-16 00:00:00 Patient Secure Msg Alvaro [facility] 1.2.840.114 350.1.13.10 4.2.7.2.686 [id number] 089 [id number] [facility] 2022-08-10 00:00:00 2022-08-10 00:00:00 Case Management Renee Lorenzo [facility] 1.2.840.114 350.1.13.10 4.2.7.2.686 [id number] 089 [id number] [facility] 2022-08-09 00:00:00 2022-08-09 00:00:[address] [facility] 1.2.840.114 350.1.13.10 4.2.7.2.686 [id number] 089 [id number] [facility] 2022-08-08 17:21:00 2022-08-08 22:31:00 Emergency X JOSSE CARR [facility] KIMO [id number] [facility] 2022-08-08 17:21:00 2022-08-08 22:31:00 Emergency Josse Carr David [facility] 1.2.840.114 350.1.13.10 4.2.7.2.686 [id number] 084 [id number] [facility] 2022-08-02 00:00:00 2022-08-02 00:00:00 Case Management Beatriz Su [facility] 1.2.840.114 350.1.13.10 4.2.7.2.686 [id number] 089 [id number] [facility] 2022-07-08 00:00:00 2022-07-08 00:00:00 Telephone Renee Lorenzo [facility] 1.2840.114 350.1.13.10 4.2.7.2.686 [id number] 089 [id number] [facility] 2022-06-10 09:30:00 2022-06-10 09:30:00 Outpatient R MEGHANA GARSIA [facility] [id number] [facility] 2022-06-09 00:00:00 2022-06-09 00:00:00 Telephone Renee Lorenzo [facility] 1.2840.114 350.1.13.10 4.2.7.2.686 [id number] 089 [id number] [facility] 2022-05-20 10:00:00 2022-05-20 10:00:00 Outpatient MEGHANA LAWTON [facility] [id number] [facility] 2022-05-20 10:00:00 2022-05-20 10:00:00 Outpatient MEGHANA LAWTON [facility] [id number] [facility] 2022-05-20 10:00:00 2022-05-20 10:00:00 Outpatient MEGHANA LAWTON [facility] [id number] [facility] 2022-05-20 00:00:00 2022-05-20 00:00:00 Case Management Lina Merritt [facility] 1.2.840.114 350.1.13.10 4.2.7.2.686 [id number] 089 [id number] [facility] 2022-05-20 00:00:00 2022-05-20 00:00:00 Telephone Alvaro [facility] 1.2840.114 350.1.13.10 4.2.7.2.686 [id number] [id number] [facility] 2022-05-19 00:00:00 2022-05-19 00:00:00 Telephone Renee Lorenzo [facility] 1.2.840.114 350.1.13.10 4.2.7.2.686 [id number] [facility] 2022-04-05 13:00:00 2022-04-05 13:01:14 Outpatient MEGHANA LAWTON [facility] [id number] [facility] 2022-04-05 13:00:00 2022-04-05 13:01:14 Nurse Visit Visit, [facility] 1.2.840.114 350.1.13.10 4.2.7.2.686 [id number] 089 [id number] [facility] 2022-03-29 13:00:00 2022-03-29 13:15:00 Nurse Visit Visit, [facility] Id Nurse Sanjuana Hutchinson [facility] 1.840.114 350.1.13.10 4.2.7.2.686 [id number] 089 [id number] [facility] 2022-03-29 13:00:00 2022-03-29 13:00:00 Outpatient SANJUANA BAKER [facility] [id number] [facility] 2022-03-29 13:00:00 2022-03-29 13:00:00 Outpatient SANJUANA BAKER [facility] [id number] [facility] 2022-03-22 13:00:00 2022-03-22 13:15:00 Nurse Visit Visit, [facility] Id Nurse Alvaro [facility] 1.840.114 350.1.13.10 4.2.7.2.686 [id number] 089 [id number] [facility] 2022-03-22 13:00:00 2022-03-22 13:00:00 Outpatient MEGHANA LAWTON [facility] [id number] [facility] 2022-02-17 13:30:00 2022-02-17 13:45:00 Nurse Visit Visit, [facility] Id Nurse Alvaro [facility] 1.2840.114 350.1.13.10 4.2.7.2.686 [id number] [id number] [facility] 2022-02-17 13:30:00 2022-02-17 13:30:00 Outpatient MEGHANA LAWTON [facility] [id number] [facility] 2022-02-01 00:00:00 2022-02-01 00:00:00 Marlene Garsia [facility] 1.840.114 350.1.13.10 4.2.7.2.686 [id number] 089 [id number] [facility] 2022-01-29 00:00:00 2022-01-29 00:00:00 Case Management Barbara De Guzman 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 Visit [facility] Alvaro [facility] 1..114 350.1.13.10 4.2.7.2.686 [id number] [facility] 2022-01-14 11:30:00 2022-01-14 12:00:00 Office Visit Alvaro [facility] 1..114 350.1.13.10 4.2.7.2.686 [id number] [facility] 2022-01-14 11:30:00 2022-01-14 11:30:00 Outpatient R MEGHANA GARSIA [facility] [id number] [facility] 2022-01-14 10:30:00 2022-01-14 10:30:00 Outpatient R [facility] [id number] [facility] 2022-01-12 00:00:00 2022-01-12 00:00:[address] [facility] 1.84.114 350.1.13.10 4.2.7.2.686 [id number] [facility] 2022-01-11 00:00:00 2022-01-11 00:00:00 Case Management Renee Lorenzo [facility] 1..114 350.1.13.10 4.2.7.2.686 [id number] [facility] 2022-01-02 15:56:00 2022-01-03 15:40:00 Outpatient X HELEN CRUZ [facility] [id number] [facility] 2022-01-02 15:56:00 2022-01-03 15:40:00 Emergency Gillett, Helen Haley [facility] 1.840.114 350.1.13.10 4.2.7.2.686 [id number] [facility] 2021-12-26 00:00:00 2021-12-26 00:00:00 Nurse Triage Nancy Andujar [facility] 1..114 350.1.13.10 4.2.7.2.686 [id number] [facility] 2021-10-15 12:30:00 2021-10-15 12:45:00 Professor Of Poultry Science Visit [facility] Meghana Garsia [facility] 1..114 350.1.13.10 4.2.7.2.686 [id number] [facility] 2021-10-15 12:30:00 2021-10-15 12:30:00 Outpatient MEGHANA LAWTON [facility] [id number] [facility] 2021-10-15 10:30:00 2021-10-15 11:00:00 Office Visit Gregorio Hanna David [facility] 1..114 350.1.13.10 4.2.7.2.686 [id number] [facility] 2021-10-15 10:30:00 2021-10-15 10:30:00 Outpatient MEGHANA LAWTON [facility] [id number] [facility] 2021-10-14 00:00:00 2021-10-14 00:00:00 Case Management Lina Phelps [facility] 1..114 350.1.13.10 4.2.7.2.686 [id number] [facility] 2021-10-12 00:00:00 2021-10-12 00:00:00 Case Management Renee Lorenzo [facility] 1.84.114 350.1.13.10 4.2.7.2.686 [id number] [facility] 2021-09-29 19:15:00 2021-09-29 19:15:00 Outpatient R JORGE GARCIA [facility] [id number] [facility] 2021-08-28 00:00:00 2021-08-28 00:00:00 Case Management Beatriz Su [facility] 1.84.114 350.1.13.10 4.2.7.2.686 [id number] [facility] 2021-08-19 00:00:00 2021-08-19 00:00:00 Case Management Beatriz Su [facility] 1..114 350.1.13.10 4.2.7.2.686 [id number] [facility] 2021-08-13 08:30:00 2021-08-13 08:30:00 Outpatient R MEGHANA GARSIA [facility] [id number] [facility] 2021-08-12 00:00:00 2021-08-12 00:00:00 Case Management Lina Phelps [facility] 1.84.114 350.1.13.10 4.2.7.2.686 [id number] [facility] 2021-08-10 00:00:00 2021-08-10 00:00:00 Case Management Renee Lorenzo [facility] 1.84.114 350.1.13.10 4.2.7.2.686 [id number] [facility] 2021-08-06 21:37:00 2021-08-06 23:38:00 Emergency X REYES BECKHAM [facility] ERT [id number] [facility] 2021-08-06 21:37:00 2021-08-06 23:38:00 [place] [facility] 1.2840.114 350.1.13.10 4.2.7.2.686 [id number] 084 [id number] [facility] 2021-08-05 00:00:00 2021-08-05 00:00:[address] [facility] 1..114 350.1.13.10 4.2.7.2.686 [id number] 089 [id number] [facility] 2021-07-27 00:00:00 2021-07-27 00:00:00 Case Management Beatriz Su [facility] 1..114 350.1.13.10 4.2.7.2.686 [id number] 089 [id number] [facility] 2021-07-23 00:00:00 2021-07-23 00:00:00 Case Management Beatriz Su [facility] 1.20.114 350.1.13.10 4.2.7.2.686 [id number] 089 [id number] [facility] 2021-06-17 13:40:00 2021-06-17 13:39:00 Outpatient ANTHONY OLIVER [facility] [id number] [facility] 2021-06-17 13:38:48 2021-06-17 13:39:00 Imm/Inj Visit Nurse, Tr Posandra Immunizatio Anthony Riley [facility] Professio [facility] 1..114 350.1.13.10 4.2.7.2.686 [id number] [facility] 2021-04-09 10:36:18 2021-04-09 11:06:18 Office Visit Gregorio Hanna David [facility] 1.2840.114 350.1.13.10 4.2.7.2.686 [id number] 089 [id number] [facility] 2021-04-09 10:30:00 2021-04-09 10:30:00 Outpatient MEGHANA LAWTON [facility] [id number] [facility] 2021-04-06 00:00:00 2021-04-06 00:00:00 Telephone Aristides Engel Gregorio [facility] 1.2840.114 350.1.13.10 4.2.7.2.686 [id number] 089 [id number] [facility] 2021-04-03 22:34:00 2021-04-04 01:29:00 Emergency Lorne Bojorquez [facility] 1.2.840.114 350.1.13.10 4.2.7.2.686 [id number] 084 [id number] [facility] 2021-02-06 00:00:00 2021-02-06 00:00:00 Case Management Beatriz Su [facility] 1.2840.114 350.1.13.10 4.2.7.2.686 [id number] 089 [id number] [facility] 2021-02-06 00:00:00 2021-02-06 00:00:00 Case Management Beatriz Su [facility] 1.2840.114 350.1.13.10 4.2.7.2.686 [id number] 089 [id number] [facility] 2021-02-05 10:56:43 2021-02-05 11:14:30 Professor Of Poultry Science Visit [facility] Meghana Garsia [facility] 1.2840.114 350.1.13.10 4.2.7.2.686 [id number] [facility] 2021-02-05 10:30:00 2021-02-05 10:30:00 Outpatient R GREGORIO HANNA [facility] [id number] [facility] 2021-02-05 09:02:51 2021-02-05 09:32:51 Office Visit Gregorio Hanna [facility] 1.2840.114 350.1.13.10 4.2.7.2.686 [id number] 089 [id number] [facility] 2021-02-05 00:00:00 2021-02-05 00:00:[address] Beatriz Su [facility] 1.20.114 350.1.13.10 4.2.7.2.686 [id number] 089 [id number] [facility] 2021-02-03 00:00:00 2021-02-03 00:00:00 Telephone [employer] 1.2840.114 350.1.13.10 4.2.7.2.686 [id number] 089 [id number] [facility] 2021-01-29 00:00:00 2021-01-29 00:00:00 Telephone [facility] 1.2840.114 350.1.13.10 4.2.7.2.686 [id number] 089 [id number] [facility] 2021-01-20 00:00:00 2021-01-20 00:00:00 Case Management Barbara De Guzman [facility] 1.2840.114 350.1.13.10 4.2.7.2.686 [id number] 089 [id number] [facility] 2021-01-13 00:00:00 2021-01-13 00:00:[address] [facility] 1.2840.114 350.1.13.10 4.2.7.2.686 [id number] 089 [id number] [facility] 2020-12-25 00:00:00 2020-12-25 00:00:[address] [facility] 1.2840.114 350.1.13.10 4.2.7.2.686 [id number] 089 [id number] [facility] 2020-12-24 16:20:00 2020-12-24 14:53:02 Outpatient ADELA CONTI [facility] [id number] [facility] 2020-12-03 12:10:00 2020-12-03 11:58:19 Outpatient ANTHONY OLIVER [facility] [id number] [facility] 2020-12-02 00:00:00 2020-12-02 00:00:00 Patient Outreach Anthony Johnson [facility] 1.840.114 350.1.13.10 4.2.7.2.686 [id number] [facility] 2020-11-06 10:45:38 2020-11-06 10:54:44 Professor Of Poultry Science Visit [facility] Alvaro [facility] 1.840.114 350.1.13.10 4.2.7.2.686 [id number] [facility] 2020-11-06 09:48:46 2020-11-06 10:46:07 Office Visit Gregorio Hanna [facility] 1..114 350.1.13.10 4.2.7.2.686 [id number] 089 [id number] [facility] 2020-11-06 10:00:00 2020-11-06 10:00:00 Outpatient MEGHANA LAWTON [facility] [id number] [facility] 2020-11-06 00:00:00 2020-11-06 00:00:00 Case Management Lina Phelps [facility] 1.2840.114 350.1.13.10 4.2.7.2.686 [id number] 089 [id number] [facility] 2020-11-05 00:00:00 2020-11-05 00:00:00 Case Management Carlos AlbertoMolly [facility] 1.2840.114 350.1.13.10 4.2.7.2.686 [id number] 089 [id number] [facility] 2020-11-04 00:00:00 2020-11-04 00:00:00 Case Management Lina Merritt Wilmer [facility] 1.2840.114 350.1.13.10 4.2.7.2.686 [id number] 089 [id number] [facility] 2020-10-27 00:00:00 2020-10-27 00:00:00 Outpatient R SAMIA, DEC[facility] [id number] [facility] 2020-10-22 14:07:00 2020-10-22 17:20:00 Emergency Fabiola [facility] 1.2840.114 350.1.13.10 4.2.7.2.686 [id number] 014 [id number] [facility] 2020-10-22 00:00:00 2020-10-22 00:00:00 Patient Secure Msg Brian [facility] 1.840.114 350.1.13.10 4.2.7.2.686 [id number] 089 [id number] [facility] 2020-10-21 00:00:00 2020-10-21 00:00:00 Telephone Brian [facility] 1.2840.114 350.1.13.10 4.2.7.2.686 [id number] 089 [id number] [facility] 2020-10-20 14:30:00 2020-10-20 14:30:00 Outpatient R SAMIA, [facility] [id number] [facility] 2020-09-30 00:00:00 2020-09-30 00:00:00 Case Management Lina Merritt [facility] 1.2.840.114 350.1.13.10 4.2.7.2.686 [id number] 089 [id number] [facility] 2020-09-18 00:00:00 2020-09-18 00:00:[address] [facility] 1.2840.114 350.1.13.10 4.2.7.2.686 [id number] 089 [id number] [facility] 2020-09-04 00:00:00 2020-09-04 00:00:00 Patient Secure Msg [facility] 1.2.840.114 350.1.13.10 4.2.7.2.686 [id number] 089 [id number] 2020-09-04 00:00:00 2020-09-04 00:00:00 Patient Secure Msg [facility] 1.2.840.114 350.1.13.10 4.2.7.2.686 [id number] 089 [id number] [facility] 2020-08-31 00:00:00 2020-08-31 00:00:00 Patient Secure Msg Doctor Unassigned, [place]ott [facility] 1.2.840.114 350.1.13.10 4.2.7.2.686 [id number] 019 [id number] [facility] 2020-08-22 00:00:00 2020-08-22 00:00:00 Patient Secure Msg Aristides Engel Gregorio [facility] 1.2840.114 350.1.13.10 4.2.7.2.686 [id number] 089 [id number] [facility] 2020-08-22 00:00:00 2020-08-22 00:00:00 Telephone [facility] 1.2.840.114 350.1.13.10 4.2.7.2.686 [id number] 089 [id number] [facility] 2020-08-22 00:00:00 2020-08-22 00:00:00 Telephone [facility] 1.2.840.114 350.1.13.10 4.2.7.2.686 [id number] 089 [id number] [facility] 2020-08-21 10:54:20 2020-08-21 11:58:50 [facility] 1.2.840.114 350.1.13.10 4.2.7.2.686 [id number] 089 [id number] 2020-08-21 10:54:20 2020-08-21 11:58:50 Office Visit [facility] 1.2.840.114 350.1.13.10 4.2.7.2.686 [id number] 089 [id number] [facility] 2020-08-21 11:30:00 2020-08-21 11:30:00 Outpatient R GREGORIO HANNA [facility] [id number] [facility] 2020-08-20 00:00:00 2020-08-20 00:00:[address] [facility] 1.2.840.114 350.1.13.10 4.2.7.2.686 [id number] 089 [id number] [facility] 2020-08-19 00:00:00 2020-08-19 00:00:[address] [facility] 1.2.840.114 350.1.13.10 4.2.7.2.686 [id number] 089 [id number] [facility] 2020-07-30 00:00:00 2020-07-30 00:00:[address] Dm Chan [facility] 1.2.840.114 350.1.13.10 4.2.7.2.686 [id number] 089 [id number] [facility] 2020-07-16 18:24:00 2020-07-16 21:35:00 Emergency Edilma Lopez [facility] 1.2.840.114 350.1.13.10 4.2.7.2.686 [id number] 084 [id number] [facility] 2020-07-15 00:00:00 2020-07-15 00:00:00 Telephone Aristides Engel [facility] 1.2.840.114 350.1.13.10 4.2.7.2.686 [id number] 089 [id number] [facility] 2020-07-10 10:10:38 2020-07-11 14:26:09 Office Visit Gregorio Hanna David [facility] 1.2.840.114 350.1.13.10 4.2.7.2.686 [id number] 089 [id number] [facility] 2020-07-10 11:57:40 2020-07-10 12:12:40 Professor Of Poultry Science Visit [facility] Aristides Engel [facility] 1.2.840.114 350.1.13.10 4.2.7.2.686 [id number] [facility] 2020-07-10 10:30:00 2020-07-10 10:30:00 Outpatient MEGHANA LAWTON [facility] [id number] [facility] 2020-07-10 00:00:00 2020-07-10 00:00:[address] Beatriz Su [facility] 1.2.840.114 350.1.13.10 4.2.7.2.686 [id number] 089 [id number] [facility] 2020-07-10 00:00:00 2020-07-10 00:00:00 Case Management Georges Beatriz Wilmer [facility] 1.2.840.114 350.1.13.10 4.2.7.2.686 [id number] 089 [id number] [facility] 2020-07-09 00:00:00 2020-07-09 00:00:00 Case Management Todd HimaLina wlesh [facility] 1.2.840.114 350.1.13.10 4.2.7.2.686 [id number] 089 [id number] [facility] 2020-07-09 00:00:00 2020-07-09 00:00:00 Case Management Todd HimaLina welsh [facility] 1.2.840.114 350.1.13.10 4.2.7.2.686 [id number] 089 [id number] [facility] 2020-04-28 06:12:39 2020-04-28 23:59:00 Hospital Encounter Go [facility] 1.2.840.114 350.1.13.10 4.2.7.2.686 [id number] [id number] [facility] 2020-02-26 00:00:00 2020-02-26 00:00:[address] [facility] 1.2.840.114 350.1.13.10 4.2.7.2.686 [id number] 089 [id number] [facility] 2020-02-15 00:00:00 2020-02-15 00:00:[address] [facility] 1.2.840.114 350.1.13.10 4.2.7.2.686 [id number] 089 [id number] [facility] 2020-01-30 00:00:00 2020-01-30 00:00:00 [facility] ([facility].2.840.114 350.1.13.10 4.2.7.2.686 [id number] 089 [id number] [facility] 2020-01-16 00:00:00 2020-01-16 00:00:00 Telephone René [facility] 1.2.840.114 350.1.13.10 4.2.7.2.686 [id number] 089 [id number] [facility] 2020-01-02 00:00:00 2020-01-02 00:00:00 Telephone [facility] 1.2.840.114 350.1.13.10 4.2.7.2.686 [id number] 089 [id number] [facility] 2019-12-12 00:00:00 2019-12-12 00:00:00 Telephone [facility] 1.2.840.114 350.1.13.10 4.2.7.2.686 [id number] 089 [id number] [facility] 2019-12-04 00:00:00 2019-12-04 00:00:00 Case Management [facility] 1.2.840.114 350.1.13.10 4.2.7.2.686 [id number] 089 [id number] [facility] 2019-09-21 00:00:00 2019-09-21 00:00:[address] La Rosa [facility] 1.2.840.114 350.1.13.10 4.2.7.2.686 [id number] 089 [id number] [facility] 2019-09-06 00:00:00 2019-09-06 00:00:00 Orders Only Doctor Unassigned, [place]ott [facility] 1.2.840.114 350.1.13.10 4.2.7.2.686 [id number] [id number] [facility] 2019-05-22 00:00:00 2019-05-22 00:00:00 Case Management Beatriz Su [facility] 1.2.840.114 350.1.13.10 4.2.7.2.686 [id number] 089 [id number] [facility] Results Test Description Test Time Test Comments Results Result Co mments Source [facility] WITH IUTO1251-59-01 15:03:41* Test Item Value Reference Range Interpretation Comme nts WBC (test code = 6690-2) 7.64 See_Comment [Automated messa ge] The system which generated this result transmitted reference range: 4.20 - 10.70 10*3/?L. The reference range was not used to interpret this result as normal/abnormal. RBC (test code = 789-8) 3.86 See_Comment L [Automated messa ge] The system which generated this result transmitted reference range: 4.26 - 5.52 10*6/?L. The reference range was not used to interpret this result as normal/abnormal. HGB (test code = 718-7) 11.5 g/dL 12.2-16.4 L HCT (test code = 4544-3) 35.1 % 38.4-49.3 L MCV (test code = 787-2) 90.9 fL 81.7-95.6 MCH (test code = 785-6) 29.8 pg 26.1-32.7 MCHC (test code = 786-4) 32.8 g/dL 31.2-35.0 RDW-SD (test code = 11734-7) 43.3 fL 38.5-51.6 RDW-CV (test code = 788-0) 13.1 % 12.1-15.4 PLT (test code = 777-3) 206 See_Comment [Automated messa ge] The system which generated this result transmitted reference range: 150 - 328 10*3/?L. The reference range was not used to interpret this result as normal/abnormal. MPV (test code = 70910-5) 8.6 fL 9.8-13.0 L NRBC/100 WBC (test code = 6096455733) 0.0 See_Comment [Automated me ssage] The system which generated this result transmitted reference range: 0.0 - 10.0 /100 WBCs. The reference range was not used to interpret this result as normal/abnormal. NRBC x10^3 (test code = 2687971026) See_Comment [Automated messa ge] The system which generated this result transmitted reference range: 10*3/?L. The reference range was not used to interpret this result as normal/abnormal. GRAN MAT (NEUT) % (test code = 770-8) 65.4 % IMM GRAN % (test code = 9136680308) 0.40 % LYMPH % (test code = 736-9) 23.4 % MONO % (test code = 5905-5) 9.7 % EOS % (test code = 713-8) 0.8 % BASO % (test code = 706-2) 0.3 % GRAN MAT x10^3(ANC) (test code = 5011409748) 5.00 10*3/uL 1.99-6.95 IMM GRAN x10^3 (test code = 3718414213) 0.03 10*3/uL 0.00-0.06 LYMPH x10^3 (test code = 731-0) 1.79 10*3/uL 1.09-3.23 MONO x10^3 (test code = 742-7) 0.74 10*3/uL 0.36-1.02 EOS x10^3 (test code = 711-2) 0.06 10*3/uL 0.06-0.53 BASO x10^3 (test code = 704-7) 0.01-0.09 Lab Interpretation (test code = 43729-8) [facility]normal [facility]58636[facility]2022-08-09 01:15:43* Test Item Value Reference Range Interpretation Comme nts NA (test code = 0815265517) 137 mmol/L 135-145 K (test code = 0367647662) 3.9 mmol/L 3.5-5.0 CL (test code = 4697132041) 104 mmol/L 98-108 CO2 TOTAL (test code = 3821235865) 26 mmol/L 23-31 AGAP (test code = 3316655336) 2-16 BUN (test code = 5321159261) 15 mg/dL 7-23 GLUCOSE (test code = 0472497685) 97 mg/dL 70-110 CREATININE (test code = 9928989224) 0.97 mg/dL 0.60-1.25 TOTAL BILI (test code = 3705035677) 0.5 mg/dL 0.1-1.1 CALCIUM (test code = 8152101245) 9.1 mg/dL 8.6-10.6 T PROTEIN (test code = 6921465831) 6.7 g/dL 6.3-8.2 ALBUMIN (test code = 9312028369) 4.0 g/dL 3.5-5.0 ALK PHOS (test code = 2110643564) 101 U/L 34-122 ALTv (test code = 1742-6) 20 U/L 5-50 AST(SGOT) (test code = 8084451659) 22 U/L 13-40 eGFR (test code = 6460124898) mL/min/1.73m2 IRA (test code = IRA) Association [...] or urine or abnormalities in imaging tests). [facility] WITH LVLX0498-04-27 01:01:40* Test Item Value Reference Range Interpretation Comme nts WBC (test code = 6690-2) See_Comment [Automated messa ge] The system which generated this result transmitted reference range: 4.20 - 10.70 10*3/?L. The reference range was not used to interpret this result as normal/abnormal. RBC (test code = 789-8) See_Comment L [Automated messa ge] The system which generated this result transmitted reference range: 4.26 - 5.52 10*6/?L. The reference range was not used to interpret this result as normal/abnormal. HGB (test code = 718-7) 11.6 g/dL 12.2-16.4 L HCT (test code = 4544-3) 34.8 % 38.4-49.3 L MCV (test code = 787-2) 90.9 fL 81.7-95.6 MCH (test code = 785-6) 30.3 pg 26.1-32.7 MCHC (test code = 786-4) 33.3 g/dL 31.2-35.0 RDW-SD (test code = 45563-8) 40.3 fL 38.5-51.6 RDW-CV (test code = 788-0) 12.3 % 12.1-15.4 PLT (test code = 777-3) See_Comment [Automated messa ge] The system which generated this result transmitted reference range: 150 - 328 10*3/?L. The reference range was not used to interpret this result as normal/abnormal. MPV (test code = 46519-2) 8.9 fL 9.8-13.0 L NRBC/100 WBC (test code = 9859761876) See_Comment [Automated [employer] ssage] The system which generated this result transmitted reference range: 0.0 - 10.0 /100 WBCs. The reference range was not used to interpret this result as normal/abnormal. NRBC x10^3 (test code = 2779850064) See_Comment [Automated messa ge] The system which generated this result transmitted reference range: 10*3/?L. The reference range was not used to interpret this result as normal/abnormal. GRAN MAT (NEUT) % (test code = 770-8) 47.8 % IMM GRAN % (test code = 2948789991) 0.20 % LYMPH % (test code = 736-9) 32.7 % MONO % (test code = 5905-5) 16.0 % EOS % (test code = 713-8) 2.9 % BASO % (test code = 706-2) 0.4 % GRAN MAT x10^3(ANC) (test code = 8989795924) 2.14 10*3/uL 1.99-6.95 IMM GRAN x10^3 (test code = 2917923920) 0.00-0.06 LYMPH x10^3 (test code = 731-0) 1.47 10*3/uL 1.09-3.23 MONO x10^3 (test code = 742-7) 0.72 10*3/uL 0.36-1.02 EOS x10^3 (test code = 711-2) 0.13 10*3/uL 0.06-0.53 BASO x10^3 (test code = 704-7) 0.01-0.09 Lab Interpretation (test code = 38335-8) Abnormal [facility] Whole Hjeyc7962-11-01 00:47:12* Test Item Value Reference Range Interpretation Comme nts LACTIC ACID (test code = 9849880461) 1.05 mmol/L 0.50-2.20 Lab Interpretation (test cod e = 22698-4) Normal [facility] (C[facility]), RT-PCR/EKG8815-42-39 15:38:41* Test Item Value Reference Range Interpretation Comments SARS-CoV-2 INTERPRETATION (test code = 79132) NEGATIVE SEE NOTE SARS-CoV-2 R NA NOT DETECTEDNegative results do not preclude SARS-CoV-2 infection and should notbe used as the sole basis for patient management decisions. Negativeresults must be combined with clinical observations, patient history,and epidemiological information. Optimum specimen types and timingfor peak viral levels during infections caused by SARS-CoV-2 have notbeen determined. Collection of multiple specimens or types ofspecimens may be necessary to detect virus. Improper specimencollection and handling, sequence variability under primers/probes,or organism present below the limit of detection may lead to falsenegative results. Positive and negative predictive values oftesting are highly dependent on prevalence. False negative testresults are more likely when prevalence is high. SOURCE (test code = 97462) NASOPHARYNGEAL Note: Methodolog y is Geronimo Jake Real-Time RT-PCR. The expected result or reference range is NEGATIVE (Not Detected). For more information regarding COVID-19 testing to include clinicalinformation, methodology detail, intended use, FDA authorization andrecommended fact sheets for patients or healthcare providers, see [facility] Announcement: SARS-CoV-2 (COVID-19) by NAAT at URL below (note,fact sheets are provided by method given in report:[email or web address]/cl [email or web address]-communications/ Alternatively, see downloadable PDF fact sheet at:https://www.[employer]/QRXQZ-60-KA-PCR UNLESS OTHERWISE INDICATED, ALL TESTING PERFORMED [facility] [address] [place] [address] MICROFILM PROCESSOR: SANJUANA BANEGAS M.D. [place] NUMBER [id number] [facility] [place]. [id number] Notes Date/Time Note Provider Source 2023-10-21 15:20:40 s1LkCbfLCaZw2XceuTou MFHP1HuZCHUi uJEFWZhBmLyz2xuQiVhxZ5yiJK+TVGBt 3096-11-50J30:20:40 Client confirms 2/ teleheatlh therapy session. EMR reviewed for eligibility and case management needs. 30 min taken 12223-0Etrdwwksb encounter BtkpKU1395-85-86W27:23:13Telepho ne encounter NoteTXT1.2.840.936200.1.13.104.2 .7.2.329430|[id number] e for patient qimo40560-8DedgYZEVXHUDJYWArmfxl lars C-CDA narrative [id number] Elisabeth Todd [facility] [address] 0767KKSXGQDSEQPVYOPFETUDEM4436-1 :23:131.2.840.242718.1.72 .3.15|1.2.840.807812.1.13.104.2. 7.2.727879_[id number] Lina Phelps RN [facility] 2023-10-14 11:28:27 RNAcmTnIQ8I9Ln+YGnUm PvjY9eRExll8 ozOs9G3eBqp5IdDNr+A14Xel7rulJLjm 6575-30-59Z75:28:27 RW therapist informed CM that client requests to speak with a case manger. CM called and LVM. 30 min taken 69496-6Hyxlwhdfp encounter OpgjKT0520-27-26B02:29:28Telepho ne encounter NoteTXT1.2.840.676230.1.13.104.2 .7.2.154828|[id number] e for patient dqkn03817-1LrfzGPKVASSXDQFWueixb lars C-CDA narrative uftt541792414Tjgtsm R Del [place]co [address] 8446AYZHEYXGYZWTWNREPEAABB8590-7 :29:281.2.840.207159.1.72 .3.15|1.2.840.711594.1.13.104.2. 7.2.727879_[id number] Lina Phelps RN [facility] 2023-10-12 13:24:55 olqKSrWoDFVSE9KsAbUm ZxsJb5W12BmN gw9MQ+Ae/n2X26wbGGUoUXM0lOtKLAdF 6565-96-84Q09:24:55 Client confirmed 2/ therapy session. He declined telehealth because he says that he needs to come into have labs drawn anyway. 30 min taken 75252-2Hzqwrlypt encounter CddaGO4789-52-04A90:26:13Telepho ne encounter NoteTXT1.2.840.890881.1.13.104.2 .7.2.824841|[id number] e for patient yqus89823-8CvbkRUDEUWYTIRFUgdklm lars Ortega-CDA narrative [id number] R Del Greco RN[address] NfvrBfhydawqlDkylxpbbnMVEK743940 7289LRIYBIZTWRMFWJZYEZZCQE3730-9 1-31T13:26:131.2.840.695730.1.72 .3.15|1.2.840.655368.1.13.104.2. 7.2.727879_[id number] Lina Phelps RN [facility] 2023-10-06 13:52:04 zdhs+stZdXH6craCiPSx pbXSi/QBb9iJ TLLwGRgOk4DtSoB9oIeEweStHLM5LUB3 3751-17-05J67:52:04 Called patient to schedule appointment. Lvm stating date/time and to call back if it didn't work for him. 31929-8Anlwyspzd encounter RmxzZG8488-97-63B05:52:42Telepho ne encounter NoteTXT1.2.840.271826.1.13.104.2 .7.2.159473|[id number] e for patient bbpk00723-3GyhuZJRQFIZIKLIAxbvjf lars C-CDA narrative [id number] A [address] 8373GQDOCGTSUILMAOOBNUFSAS5764-6 10-06T13:52:421.2.840.465846.1.72 .3.15|1.2.840.817777.1.13.104.2. 7.2.727879_[id number] Chao Chew [facility] 2023-10-06 11:32:47 WXVtNKr2FaaJbTB0ejYK 5sqd6v2qJx9r +8cnkvE6GhFBJV7DWd2ozHubWOAZWMzm 2833-09-80Y92:32:47 Adeel Antoine is a 53 year old malePatient is needing to r/s appts missed on 125. Please contact patient. [phone] (home) 36533-2Fxerbredo encounter CyplQT2220-79-46H41:34:11Telepho ne encounter NoteTXT1.2.840.205658.1.13.104.2 .7.2.358264|[id number] e for patient mksq58549-0SwcjBGFKQPWQEAANoamtm lars C-CDA narrative [id number] [address] 5981ONSIJPEAYRMLBBRLRXVFUY1491-0 10-06T11:34:111.2.840.292751.1.72 .3.15|1.2.840.689136.1.13.104.2. 7.2.727879_[id number] oJvana Cottrell [facility] 2023-10-05 11:34:59 jcyGWJ+VcXLshRtvqVqH NvdWH1gPxH47 uDFLhFUIvMPFPo9z23Gv/U/eIVQn2/s/ 5058-71-93I04:34:59 LVM for client as reminder for 10/05 therapy visit. Enrollment acuity needs to be completed. 30 min taken 45366-7Aqlunrrfz encounter GnuaWM4534-06-75L49:37:02Telepho ne encounter NoteTXT1.2.840.033202.1.13.104.2 .7.2.475710|[id number] e for patient msqs92432-7HugzGDHSMOQPVMAOhgmgr lars -CDA narrative [id number] Phelps RN[address] EhnwFcfudrctgJncrqlpscASCF262713 1948VPIJJSFYNVHFJYNJEPKLKD5747-9 10-05T11:37:021.2.840.222306.1.72 .3.15|1.2.840.543522.1.13.104.2. 7.2.727879_[id number] Lina Phelps RN [facility] 2023-04-14 01:15:20 aQQ1A/2nJgG5ixCr+gFC 6LFVI3bVlr0b ACQ35FVzhF83fnYUj7TJurWlLDn7GQAW 2742-61-17V64:15:20 Pt discharged home. Given all education and information regarding pain management; prescription use; s/s of worsening condition as well as specialty follow up importance. Pt verbalized understanding. Alert and ambulatory to pov with mother. 41444-8Enwcabmvt department LxdcOW8654-90-07O31:16:08Emergen cy department NoteTXT1.2.840.291040.1.13.104.2 .7.2.400185|[id number] e for patient [id number] A Paul RN[address] 1418MLMIGQVSUDLIJRLTEXLUJP7730-5 8T01:16:081.2.840.105836.1.72 .3.15|1.2.840.048473.1.13.104.2. [id number] Vanessa Cuevas RN [facility] 2023-04-13 22:54:35 O4oj9qEFjEgNRxh3nTLc FL1zPR3yDUQ4 0MZ57BX7ZDEXyBUnQ9pdh44HZI+cdCSX 8757-59-06W77:54:35 Pt sleeping no distress, mom at bedside, report to Brenda ELIZABETH 51738-9Uwhtotsio department PmioSU3536-63-98G49:55:03Emergen cy department NoteTXT1.2.840.382896.1.13.104.2 .7.2.755230|[id number] e for patient [id number] M. Barton RN[address] 0362MTYFOZFFHHJUZJOPKIFXLB8854-8 8-02T22:55:031.2.840.144681.1.72 .3.15|1.2.840.975574.1.13.104.2. 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 Pt reports being HIV + and only took those med before coming. Rates pain / and reports it shooting to groin area. Also report blood in urine x1. 80708-2Vfvgdsoun department Triage haqnNU3657-70-12U27:14:55[facility] Triage noteTXT1.2.840.674951.1.13.104.2 .7.2.470375|[id number] e for patient oogh94580-1Nysjjvfix department [id number] L Williams RN[address] IiciBcuqagujsImaqnfvacLKOF597820 4669BTFSEQREUCJSDVSSDCIMQN4402-1 04-13T2:14:551.2.840.590171.1.72 .3.15|1.2.840.035422.1.13.104.2. [id number] Galina Cartagena RN [facility]"
[2023-11-03 20:05] LABS: Absolute Lymphocytes (CBC) 1.4 K/uL (0.7-4.9); Lymphocytes % 25.2 % (15.3-44.8); MPV 6.7 fL (7.6-11.3); Platelets 221 thou/uL (152-406); RBC Red Blood Cell Count 4.72 M/uL (4.33-5.43)
[2023-11-03 20:19] LABS: Albumin 3.9 g/dL (3.4-5.0); Bilirubin Direct 0.1 mg/dL (0-0.2); Bilirubin Indirect, Calculated 0.3 mg/dL (0.2-0.8); Bilirubin Total 0.4 mg/dL (0.2-1.0); Potassium 3.7 mEq/L (3.5-5.1); Protein, Total 8.5 g/dL (6.4-8.2)
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
[2023-11-03 21:52] VITALS: BP 110/88; TEMP 97.9; O2SAT 100
--- NOTE | 2023-11-07 14:42 | EKG ---
Test Date: 2023-11-03 Test Time: 18:25:05 Cell Tester: SALLY MEASUREMENT RESULTS: Intervals: Rate: 80 CA: 158 QRSD: 92 QT: 382 QTc: 440 [place]: P: 80 CA: 158 QRS: 34 T: 75 INTERPRETIVE STATEMENTS: Normal sinus rhythm Cannot rule out Anterior infarct, age undetermined Abnormal ECG Compared to ECG 09/22/2020 01:57:14 Myocardial infarct finding now present Sinus tachycardia no longer present Electronically Signed On 11-07-23 14:31:34 ELECTRIC SYSTEM OPERATOR by Amari Felipe
== END ==
LOC: ER 17:57
DX: M54.2 Cervicalgia (principal); V49.40XA Driver injured in collision with unspecified motor vehicles in traffic accident, initial encounter; Z88.5 Allergy status to narcotic agent
CPT/HCPCS: 93005; 85025; 80048; 36415; 86900; 86850; 86901; 80076; 83690; 70450; 72125; 71260; 74177; 82077; Q9967; J3010

== ENCOUNTER 2023-12-19 19:34 | Emergency (ER) | payer OTHER ==
--- OUTSIDE RECORDS SUMMARY | 2023-12-19 19:45 | XMS REPORT | Continuity of Care Document ---
Author Name Unknown Address [address] [place] [address] [facility] [address] [facility] [address] [place] [address] Care Team Providers Care Display Carver Name Role Phone MEGHNAA GARSIA Primary Care Physician UnavailMEGHANA Baker Attending Clinician Unavailable STANLEY HUNTER Attending Clinician UnavailSTANLEY Lopez Attending Clinician UnavailKALLI Gallego Attending Clinician Unavailable Todd Rabago RN, Lina Barber Attending Clinician Unava Lina Mitchell RN Attending Clinician Unanghia Stevens [facility] Attending Clinician [phone] Beatriz Su MA Attending Clinician Unavailab Kenneth Fitch MA Attending Clinician Unavailrosalia granado [facility] Attending Clinician Unavailable Mary Fernando RN Attending Clinician Unavailabl vannesa Chan RN, Dm Guillen Attending Clinician Unavaila Renee Rosales LVN Attending Clinician UnaBarbara Vegas MA Attending Clinician UnaSUGEY العلي Attending Clinician Unavaila ALANNA North Attending Clinician Unavailable IBIKUNLE, FOLUSHO F Attending Clinician Unavaila lucina MCCULLOUGHP, Liseth Pineda Attending Clinician [phone] MEGHANA RUSSELL Attending Clinician Unavailable Fabiola Cartagena DO Attending Clinician [phone] Meghana Russell DO Attending Clinician [phone] Doctor Unassigned, [place] Attending Clinician U theresa Barrie MARTIN, Bonnie Attending Clinician [phone] Alvaro GORE, Meghana Attending Clinician [phone] INDIGO VICTRO Attending Clinician Unavailab KALLI Padilla Attending Clinician Unavailable JOSSE CARR Attending Clinician Unavailable Josse Carr DO Attending Clinician [phone] Visit, [facility] Id Nurse Attending Clinician Unavaila Sanjuana Falk Attending Clinician [phone] SANJUANA HUTCHINSON Attending Clinician Unavailable HELEN CRUZ Attending Clinician Unavailable David [facility], Stanley Attending Clinician + [phone] Helen Cruz MD Attending Clinician [phone] Nancy Andujar RN Attending Clinician Unavailable Gregorio Hanna MD Attending Clinician [phone] JOREG GARCIA Attending Clinician Unavailab REYES Villalpando Attending Clinician Unavailable Reyes Beckham MD Attending Clinician [phone] ANTHONY JOHNSON Attending Clinician Unavail able Nurse, Adc Pob Immunization Attending Clinician Unavailable Anthony Johnson DO Attending Clinician [phone] Maryellen MCCULLOUGHP, Lorne Attending Clinician [phone] GREGORIO HANNA Attending Clinician Unanghia Carcamo LVN, Molly Attending Clinician Unavaila ADELA Youssef Attending Clinician Unavailable SAMIADecember Attending Clinician Unavailable Brian GORE, Nayla Attending Clinician [phone] Devonte Hightower Attending Clinician [phone] Edilma Asher Attending Clinician [phone] Go Beverly Attending Clinician [phone] Codey Diop MD Attending Clinician [phone] LISETH GAMEZ Admitting Clinician Unavaila MEGHANA Garcia Admitting Clinician Unavailable Meghana Russell DO Admitting Clinician HELEN CRUZ Admitting Clinician Unavailable Helen Cruz MD Admitting Clinician [phone] Payers Payer Name Policy Type Policy Number Effective Date Expirati on Date Source Problems Condition Name Condition Details Condition Category Status Onset Date Resolution Date Last Treatment Date Treating Clinician Comments Source Cellulitis of right upper extremity Cellulitis of right upper extremity Disease Active 03-09 00:00: 00 [facility] Necrotizin g cellulitis Necrotizin g cellulitis Disease Active 2021-09 00:00: 00 [facility] Cellulitis of left lower leg Cellulitis of left lower leg Disease Active 01-02 00:00: 00 [facility] Furunculos is Furunculos is Disease Active 02-12 00:00: 00 [facility] HIV (human immunodefi ciency virus infection) HIV (human immunodefi ciency virus infection) Disease Active 06-07 00:00: 00 [facility] HLD (hyperlipi demia) HLD (hyperlipi demia) Disease Active 06-07 00:00: 00 [facility] Allergies, Adverse Reactions, Alerts Allergy Name Allergy Type Status Severity Reaction(s) Onset Date Inactive Date Treating Clinician Comments Source NO KNOWN ALLERGIE S Drug Class Active [facility] Social History Social Habit Start Date Stop Date Quantity Comments Source History SDOH Alcohol Frequency [facility] History SDOH Alcohol Std Drinks [facility] History SDOH Alcohol Binge [facility] History of tobacco use Cigarette Smoker [facility] Gender identity [facility] of Social function 2023-11-17 00:00:00 2023-11-17 00:00:00 [facility] Alcohol intake 2023-08-29 00:00:00 2023-08-29 00:00:00 Current drinker of alcohol (finding) [facility] Tobacco use and exposure 2023-03-09 00:00:00 2023-03-09 00:00:00 User of smokeless tobacco [facility] Tobacco Comment 2023-03-09 00:00:00 2023-03-09 00:00:00 Less than half a pack a day [facility] Cigarettes smoked current (pack per day) - Reported 2023-03-09 00:00:00 2023-03-09 00:00:00 [facility] Exposure to SARS-CoV-2 (event) 2022-11-15 00:00:00 2022-11-25 10:34:00 Not sure [facility] Alcohol Comment 2018-06-08 00:00:00 2018-06-08 00:00:00 12 pack beer monthly [facility] Sex Assigned At 1970 00:00:00 1970 00:00:00 [facility] Smoking Status Start Date Stop Date Source Smokes tobacco daily 2023-03-09 00:00:00 [facility] Medications Ordered Medication Name Filled Medication Name Start Date Stop Date Current Medication? Ordering Clinician Indication Dosage Frequency Signature (SIG) Comments Components Source bictegrav-e mtricit-ten ofov ala (BIKTARVY) 50-200-25 mg tablet 2022-09 00:00: 00 Yes [id number] 1{tbl} Take 1 tablet by mouth in the morning. [facility] chlorhexidi ne 4 % external liquid 2022-09 00:00: 00 09-10 05:59 :00 No [id number] Apply to area(s) once daily as needed for Wound care for up to 30 days. [facility] chlorhexidi ne 4 % external liquid 2022-09 00:00: 00 09-10 05:59 :00 No [id number] Apply to area(s) once daily as needed for Wound care for up to 30 days. [facility] minocycline 100 mg capsule 2022-09 00:00: 00 08-25 05:59 :00 No [id number] 100mg Take 1 capsule by mouth every 12 (twelve) hours for 14 days. [facility] tamsulosin (FLOMAX) capsule 0.4 mg 04-14 14:00: 00 Yes .4mg 0.4 mg, Oral, DAILY, First dose on Bess 04/14/23 at 0900, Until Discontinu ed, Routine [facility] ketorolac (TORADOL) injection 30 mg 04-14 06:15: 00 04-14 05:48 :00 No 30mg 30 mg, Slow IV Push, ONCE, 1 dose, On Bess 04/14/23 at 0115, Routine [facility] morpHINE (4 mg/mL) injection 4 mg 04-14 04:15: 00 04-14 04:43 :00 No 4mg 4 mg, Slow IV Push, ONCE, 1 dose, On Tue04/13/23 at 2315, STAT [facility] iopamidol (ISOVUE 370-500 mL) injection 75 mL 04-14 04:15: 00 04-14 03:21 :00 No [id number] 75mL 75 mL, Intravenou s, ONCE, 1 dose, On Tue04/13/23 at 2315, Routine [facility] NaCl 0.9% (NS) bolus infusion 1,000 mL 04-14 03:45: 00 04-14 03:55 :00 No 1000mL at 999 mL/hr, 1,000 mL, IV Infusion, ONCE, 1 dose, On Tue04/13/23 at 2245, FLORI [facility] ondansetron (ZOFRAN (PF)) injection 4 mg 04-14 03:00: 00 04-14 02:54 :00 No 4mg 4 mg, Slow IV Push, ONCE, 1 dose, On Tue04/13/23 at 2200, FLORI [facility] morpHINE (4 mg/mL) injection 4 mg 04-14 03:00: 00 04-14 02:54 :00 No 4mg 4 mg, Slow IV Push, ONCE, 1 dose, On Tue04/13/23 at 2200, STAT [facility] ketorolac 10 mg tablet 04-14 00:00: 00 Yes [id number] 10mg Take 1 tablet by mouth every 6 (six) hours as needed for Pain (scale 7-10). [facility] traMADoL 50 mg tablet 04-14 00:00: 00 Yes [id number] 50mg Take 1 tablet by mouth every 6 (six) hours as needed for Pain (scale 7-10). Indication s: acute pain [facility] sulfamethox azole-trime thoprim (BACTRIM DS) 800-160 mg per tablet 03-11 00:00: 00 03-23 04:59 :00 No [id number] 1{tbl} Take 1 tablet by mouth in the morning and 1 tablet in the evening. Do all this for 11 days. [facility] traMADoL 50 mg tablet 03-11 00:00: 00 03-19 04:59 :00 No [id number] 50mg Take 1 tablet by mouth every 6 (six) hours as needed for Pain (scale 7-10) for up to 7 days. Indication s: acute pain [facility] iopamidol (ISOVUE 370-500 mL) injection 80 mL 03-10 21:00: 00 03-10 21:00 :00 No [id number] 80mL 80 mL, Intravenou s, ONCE, 1 dose, On Tue03/10/23 at 1600, Routine [facility] vancomycin 1,250 mg in NaCl 0.9% [...] Soft tissue
Duration of therapy: 5 days [facility] atorvastati n (LIPITOR) tablet 40 mg 03-10 02:00: 00 Yes 40mg 40 mg, Oral, QHS, First dose on Tue03/09/23 at 2100, Until Discontinu ed, Routine [facility] nicotine (NICODERM) 14 mg/24 hr patch 1 Patch 03-09 23:45: 00 Yes 1{patch } 1 Patch, Topical, Administer over 24 Hours, Q24H, First dose on Tue03/09/23 at 1845, Until Discontinu ed, Routine [facility] bictegrav-e mtricit-ten ofov ala (BIKTARVY) 50-200-25 mg tablet 1 tablet 03-09 23:00: 00 Yes 1{tbl} 1 tablet, Oral, DAILY, First dose on Tue03/09/23 at 1800, Until Discontinu ed, Routine [facility] ampicillin- sulbactam (UNASYN) 3 g in NaCl 0.9% (NS) 100 mL MINI-BAG 03-09 23:00: 00 Yes 3g 3 g, IV Piggyback, Q6H ABX, First dose (after last reorder) on Tue03/09/23 at 1800, Until Discontinu ed, Administer over 30 Minutes, 100 mL
Reas on for Anti-Infec tive: Documented Infection< br>Documen lars Infection Site: Skin / Soft Tissue
Duration of Therapy: 7 days [facility] enoxaparin (LOVENOX) injection 40 mg 03-09 22:00: 00 Yes 40mg 40 mg, Subcutaneo us, DAILY, First dose on Tue03/09/23 at 1700, Until Discontinu ed, Routine [facility] HYDROcodone -acetaminop hen (NORCO 5) 5-325 mg tablet 1 tablet 03-09 15:50: 46 03-11 15:49 :46 No 1{tbl} 1 tablet, Oral, Q6HPRN, Starting on Tue03/09/23 at 1050, Until Tue03/11/23 at 1049, Routine, Pain (scale 4-6) [facility] acetaminoph en (TYLENOL) tablet 650 mg 03-09 15:50: 44 Yes 650mg 650 mg, Oral, Q6HPRN, Starting on Tue03/09/23 at 1050, Until Discontinu ed, Routine, Pain (scale 1-3) [facility] vancomycin 1,250 mg in NaCl 0.9% [...] Soft Tissue
Duration of Therapy: 7 days [facility] ampicillin- sulbactam (UNASYN) 3 g in NaCl 0.9% (NS) 100 mL MINI-BAG 03-09 14:15: 00 03-09 15:10 :00 No 3g 3 g, IV Piggyback, ONCE, 1 dose, On Tue03/09/23 at 0915, Administer over 30 Minutes, 100 mL
Reas on for Anti-Infec tive: Documented Infection< br>Documen lars Infection Site: Skin / Soft Tissue
Duration of Therapy: 7 days [facility] bictegrav-e mtricit-ten ofov ala (BIKTARVY) 50-200-25 mg tablet 02-17 00:00: 00 08-29 00:00 :00 No [id number] 1{tbl} Take 1 tablet by mouth in the morning. [facility] povidone-io dine (BETADINE SURGICAL SCRUB) 7.5 % Soln 02-17 00:00: 00 03-11 00:00 :00 No [id number] 3{bottl e} Apply 3 Bottles to area(s) in the morning. [facility] doxycycline monohydrate 100 mg capsule 2021-09 00:00: 00 03-09 00:00 :00 No [id number] 100mg Take 1 capsule by mouth in the morning and 1 capsule in the evening. [facility] bictegrav-e mtricit-ten ofov ala (BIKTARVY) 50-200-25 mg tablet 2021-09 00:00: 00 02-17 00:00 :00 No [id number] 1{tbl} Take 1 tablet by mouth in the morning. [facility] amoxicillin -clavulanat e 875-125 mg per tablet 2021-09 00:00: 00 03-09 00:00 :00 No [id number] 1{tbl} Take 1 tablet by mouth every 12 (twelve) hours. [facility] vancomycin (VANCOCIN) 1,000 mg in NaCl 0.9% (NS) 250 mL VIAL-MATE IV piggyback 2021-09 01:30: 00 Yes [id number] 1000mg 1,000 mg, IV Piggyback, Q12H ABX, First dose on 08/08/22 at 1930, Until Discontinu ed, Administer over 60 Minutes, 250 mL
Reas on for Anti-Infec tive: Empiric Therapy for Suspected Infection< br>Empiric Therapy Site: Skin / Soft tissue
Duration of therapy: 72 hours [facility] piperacilli n-tazobacta m (ZOSYN) 3.375 g in NaCl 0.9% (NS) 50 mL MINI-BAG 2021-09 01:30: 00 08-14 01:29 :00 No [id number] 3.375g 3.375 g, IV Piggyback, Q8H ABX, 15 doses, First dose on 08/08/22 at 1930, Last dose on Tue08/13/22 at 1130, Administer over 4 Hours, 50 mL
Reas on for Anti-Infec tive: Empiric Therapy for Suspected Infection< br>Empiric Therapy Site: Skin / Soft tissue
Duration of therapy: 72 hours [facility] piperacilli n-tazobacta m (ZOSYN) 3.375 g in NaCl 0.9% (NS) 50 mL MINI-BAG 2021-09 01:15: 00 08-09 01:59 :00 No [id number] 3.375g 3.375 g, IV Piggyback, ONCE, 1 dose, On 08/08/22 at 1915, Administer over 30 Minutes, 50 mL
Reas on for Anti-Infec tive: Empiric Therapy for Suspected Infection< br>Empiric Therapy Site: Skin / Soft tissue
Duration of therapy: 72 hours [facility] NaCl 0.9% (NS) bolus infusion 2,421 mL 2021-09 01:15: 00 08-09 03:28 :00 No [id number] 30mL/kg at 999 mL/hr, 2,421 mL (30 mL/kg ?80.7 kg), IV Piggyback, ONCE, 1 dose, On 08/08/22 at 1915, STAT [facility] chlorhexidi ne 4 % external liquid 2021-09 00:00: 00 03-11 00:00 :00 No [id number] Apply to area(s) once daily as needed for Wound care. [facility] amoxicillin -clavulanat e 875-125 mg per tablet 2021-09 00:00: 00 08-16 00:00 :00 No [id number] 1{tbl} Take 1 tablet by mouth every 12 (twelve) hours. [facility] penicillin g benzathine (BICILLIN L-A) injection 2.4 Million Units 04-05 19:15: 00 04-05 18:10 :00 No [id number] 2.410 [facility] penicillin g benzathine (BICILLIN L-A) injection 2.4 Million Units 03-29 18:45: 00 03-29 17:31 :00 No [id number] 2.410 [facility] penicillin g benzathine (BICILLIN L-A) injection 2.4 Million Units 03-22 20:15: 00 03-22 19:03 :00 No [id number] 2.410 [facility] bictegrav-e mtricit-ten ofov ala (BIKTARVY) 50-200-25 mg tablet 01-14 00:00: 00 08-26 00:00 :00 No [id number] 1{tbl} Take 1 tablet by mouth daily. [facility] chlorhexidi ne 4 % external liquid 01-14 00:00: 00 08-08 00:00 :00 No [id number] Apply to area(s) once daily as needed for Wound care. [facility] doxycycline hyclate 100 mg capsule 01-14 00:00: 00 03-29 00:00 :00 No [id number] 100mg Take 1 capsule by mouth every 12 (twelve) hours. [facility] ATORVASTATI N 40 mg tablet 03-08 00:00: 00 Yes [id number] 40mg TAKE 1 TABLET BY MOUTH AT BEDTIME. [facility] Immunizations Ordered Immunization Name Filled Immunization Name Date Status Comments Source SARS-COV-2 COVID-19 JOHANA-SUCROSE VACCINE 12 YRS+, BIVALENT 0.3ML, IM, (PFIZER ORTIZ TOP BOOSTER) 2022-08-26 00:00:00 Completed [facility] Influenza Virus Vaccine Quad IM, Preserv and ABX Free 6 MO-64 YRS 2022-08-26 00:00:00 Completed [facility] SARS-COV-2 COVID-19 JOHANA-SUCROSE VACCINE 12 YRS+, BIVALENT 0.3ML, IM, (PFIZER ORTIZ TOP BOOSTER) 2022-08-26 00:00:00 Completed [facility] Influenza Virus Vaccine Quad IM, Preserv and ABX Free 6 MO-64 YRS 2022-08-26 00:00:00 Completed [facility] SARS-COV-2 COVID-19 JOHANA-SUCROSE VACCINE 12 YRS+, BIVALENT 0.3ML, IM, (PFIZER ORTIZ TOP BOOSTER) 2022-08-26 00:00:00 Completed [facility] Influenza Virus Vaccine Quad IM, Preserv and ABX Free 6 MO-64 YRS 2022-08-26 00:00:00 Completed [facility] SARS-COV-2 COVID-19 JOHANA-SUCROSE VACCINE 12 YRS+, BIVALENT 0.3ML, IM, (PFIZER ORTIZ TOP BOOSTER) 2022-08-26 00:00:00 Completed [facility] Influenza Virus Vaccine Quad IM, Preserv and ABX Free 6 MO-64 YRS 2022-08-26 00:00:00 Completed [facility] SARS-COV-2 COVID-19 JOHANA-SUCROSE VACCINE 12 YRS+, BIVALENT 0.3ML, IM, (PFIZER ORTIZ TOP BOOSTER) 2022-08-26 00:00:00 Completed [facility] Influenza Virus Vaccine Quad IM, Preserv and ABX Free 6 MO-64 YRS 2022-08-26 00:00:00 Completed [facility] SARS-COV-2 COVID-19 JOHANA-SUCROSE VACCINE 12 YRS+, BIVALENT 0.3ML, IM, (PFIZER ORTIZ TOP BOOSTER) 2022-08-26 00:00:00 Completed [facility] Influenza Virus Vaccine Quad IM, Preserv and ABX Free 6 MO-64 YRS 2022-08-26 00:00:00 Completed [facility] SARS-COV-2 COVID-19 JOHANA-SUCROSE VACCINE 12 YRS+, BIVALENT 0.3ML, IM, (PFIZER ORTIZ TOP BOOSTER) 2022-08-26 00:00:00 Completed [facility] Influenza Virus Vaccine Quad IM, Preserv and ABX Free 6 MO-64 YRS 2022-08-26 00:00:00 Completed [facility] SARS-COV-2 COVID-19 JOHANA-SUCROSE VACCINE 12 YRS+, BIVALENT 0.3ML, IM, (PFIZER ORTIZ TOP BOOSTER) 2022-08-26 00:00:00 Completed [facility] Influenza Virus Vaccine Quad IM, Preserv and ABX Free 6 MO-64 YRS 2022-08-26 00:00:00 Completed [facility] SARS-COV-2 COVID-19 JOHANA-SUCROSE VACCINE 12 YRS+, BIVALENT 0.3ML, IM, (PFIZER ORTIZ TOP BOOSTER) 2022-08-26 00:00:00 Completed [facility] Influenza Virus Vaccine Quad IM, Preserv and ABX Free 6 MO-64 YRS 2022-08-26 00:00:00 Completed [facility] SARS-COV-2 COVID-19 JOHANA-SUCROSE VACCINE 12 YRS+, BIVALENT 0.3ML, IM, (PFIZER ORTIZ TOP BOOSTER) 2022-08-26 00:00:00 Completed [facility] Influenza Virus Vaccine Quad IM, Preserv and ABX Free 6 MO-64 YRS 2022-08-26 00:00:00 Completed [facility] SARS-COV-2 COVID-19 JOHANA-SUCROSE VACCINE 12 YRS+, BIVALENT 0.3ML, IM, (PFIZER ORTIZ TOP BOOSTER) 2022-08-26 00:00:00 Completed [facility] Influenza Virus Vaccine Quad IM, Preserv and ABX Free 6 MO-64 YRS 2022-08-26 00:00:00 Completed [facility] SARS-COV-2 COVID-19 JOHANA-SUCROSE VACCINE 12 YRS+, BIVALENT 0.3ML, IM, (PFIZER ORTIZ TOP BOOSTER) 2022-08-26 00:00:00 Completed [facility] Influenza Virus Vaccine Quad IM, Preserv and ABX Free 6 MO-64 YRS 2022-08-26 00:00:00 Completed [facility] SARS-COV-2 COVID-19 JOHANA-SUCROSE VACCINE 12 YRS+, BIVALENT 0.3ML, IM, (PFIZER ORTIZ TOP BOOSTER) 2022-08-26 00:00:00 Completed [facility] Influenza Virus Vaccine Quad IM, Preserv and ABX Free 6 MO-64 YRS 2022-08-26 00:00:00 Completed [facility] SARS-COV-2 COVID-19 JOHANA-SUCROSE VACCINE 12 YRS+, BIVALENT 0.3ML, IM, (PFIZER ORTIZ TOP) 2022-08-26 00:00:00 Completed [facility] Influenza Virus Vaccine Quad IM, Preserv and ABX Free 6 MO-64 YRS 2022-08-26 00:00:00 Completed [facility] SARS-COV-2 COVID-19 JOHANA-SUCROSE VACCINE 12 YRS+, BIVALENT 0.3ML, IM, (PFIZER ORTIZ TOP) 2022-08-26 00:00:00 Completed [facility] Influenza Virus Vaccine Quad IM, Preserv and ABX Free 6 MO-64 YRS 2022-08-26 00:00:00 Completed [facility] SARS-COV-2 COVID-19 JOHANA-SUCROSE VACCINE 12 YRS+, BIVALENT 0.3ML, IM, (PFIZER ORTIZ TOP) 2022-08-26 00:00:00 Completed [facility] Influenza Virus Vaccine Quad IM, Preserv and ABX Free 6 MO-64 YRS 2022-08-26 00:00:00 Completed [facility] SARS-COV-2 COVID-19 JOHANA-SUCROSE VACCINE 12 YRS+, BIVALENT 0.3ML, IM, (PFIZER ORTIZ TOP) 2022-08-26 00:00:00 Completed [facility] Influenza Virus Vaccine Quad IM, Preserv and ABX Free 6 MO-64 YRS 2022-08-26 00:00:00 Completed [facility] SARS-COV-2 COVID-19 JOHANA-SUCROSE VACCINE 12 YRS+, BIVALENT 0.3ML, IM, (PFIZER ORTIZ TOP) 2022-08-26 00:00:00 Completed [facility] Influenza Virus Vaccine Quad IM, Preserv and ABX Free 6 MO-64 YRS 2022-08-26 00:00:00 Completed [facility] SARS-COV-2 COVID-19 JOHANA-SUCROSE VACCINE 12 YRS+, BIVALENT 0.3ML, IM, (PFIZER ORTIZ TOP) 2022-08-26 00:00:00 Completed [facility] Influenza Virus Vaccine Quad IM, Preserv and ABX Free 6 MO-64 YRS 2022-08-26 00:00:00 Completed [facility] SARS-COV-2 COVID-19 JOHANA-SUCROSE VACCINE 12 YRS+, BIVALENT 0.3ML, IM, (PFIZER ORTIZ TOP) 2022-08-26 00:00:00 Completed [facility] Influenza Virus Vaccine Quad IM, Preserv and ABX Free 6 MO-64 YRS 2022-08-26 00:00:00 Completed [facility] SARS-COV-2 COVID-19 JOHANA-SUCROSE VACCINE 12 YRS+, BIVALENT 0.3ML, IM, (PFIZER ORTIZ TOP) 2022-08-26 00:00:00 Completed [facility] Influenza Virus Vaccine Quad IM, Preserv and ABX Free 6 MO-64 YRS 2022-08-26 00:00:00 Completed [facility] SARS-COV-2 COVID-19 JOHANA-SUCROSE VACCINE 12 YRS+, BIVALENT 0.3ML, IM, (PFIZER ORTIZ TOP) 2022-08-26 00:00:00 Completed [facility] Influenza Virus Vaccine Quad IM, Preserv and ABX Free 6 MO-64 YRS 2022-08-26 00:00:00 Completed [facility] SARS-COV-2 COVID-19 JOHANA-SUCROSE VACCINE 12 YRS+, BIVALENT 0.3ML, IM, (PFIZER ORTIZ TOP) 2022-08-26 00:00:00 Completed [facility] Influenza Virus Vaccine Quad IM, Preserv and ABX Free 6 MO-64 YRS 2022-08-26 00:00:00 Completed [facility] SARS-COV-2 COVID-19 JOHANA-SUCROSE VACCINE 12 YRS+, BIVALENT 0.3ML, IM, (PFIZER ORTIZ TOP) 2022-08-26 00:00:00 Completed [facility] Influenza Virus Vaccine Quad IM, Preserv and ABX Free 6 MO-64 YRS 2022-08-26 00:00:00 Completed [facility] SARS-COV-2 COVID-19 JOHANA-SUCROSE VACCINE 12 YRS+, BIVALENT 0.3ML, IM, (PFIZER ORTIZ TOP) 2022-08-26 00:00:00 Completed [facility] Influenza Virus Vaccine Quad IM, Preserv and ABX Free 6 MO-64 YRS 2022-08-26 00:00:00 Completed [facility] SARS-COV-2 COVID-19 JOHANA-SUCROSE VACCINE 12 YRS+, BIVALENT 0.3ML, IM, (PFIZER ORTIZ TOP) 2022-08-26 00:00:00 Completed [facility] Influenza Virus Vaccine Quad IM, Preserv and ABX Free 6 MO-64 YRS 2022-08-26 00:00:00 Completed [facility] SARS-COV-2 COVID-19 JOHANA-SUCROSE VACCINE 12 YRS+, BIVALENT 0.3ML, IM, (PFIZER ORTIZ TOP) 2022-08-26 00:00:00 Completed [facility] Influenza Virus Vaccine Quad IM, Preserv and ABX Free 6 MO-64 YRS (FLUCELVAX) 2022-08-26 00:00:00 Completed [facility] Influenza Virus Vaccine Quad IM, Preserv and ABX Free 6 MO-64 YRS 2021-10-15 00:00:00 Completed [facility] Influenza Virus Vaccine Quad IM, Preserv and ABX Free 6 MO-64 YRS 2021-10-15 00:00:00 Completed [facility] Influenza Virus Vaccine Quad IM, Preserv and ABX Free 6 MO-64 YRS 2021-10-15 00:00:00 Completed [facility] Influenza Virus Vaccine Quad IM, Preserv and ABX Free 6 MO-64 YRS 2021-10-15 00:00:00 Completed [facility] Influenza Virus Vaccine Quad IM, Preserv and ABX Free 6 MO-64 YRS 2021-10-15 00:00:00 Completed [facility] Influenza Virus Vaccine Quad IM, Preserv and ABX Free 6 MO-64 YRS 2021-10-15 00:00:00 Completed [facility] Influenza Virus Vaccine Quad IM, Preserv and ABX Free 6 MO-64 YRS 2021-10-15 00:00:00 Completed [facility] Influenza Virus Vaccine Quad IM, Preserv and ABX Free 6 MO-64 YRS 2021-10-15 00:00:00 Completed [facility] Influenza Virus Vaccine Quad IM, Preserv and ABX Free 6 MO-64 YRS 2021-10-15 00:00:00 Completed [facility] Influenza Virus Vaccine Quad IM, Preserv and ABX Free 6 MO-64 YRS 2021-10-15 00:00:00 Completed [facility] Influenza Virus Vaccine Quad IM, Preserv and ABX Free 6 MO-64 YRS 2021-10-15 00:00:00 Completed [facility] Influenza Virus Vaccine Quad IM, Preserv and ABX Free 6 MO-64 YRS 2021-10-15 00:00:00 [facility] [facility] Influenza Virus Vaccine Quad IM, Preserv and ABX Free 6 MO-64 YRS 2021-10-15 00:00:00 Completed [facility] Influenza Virus Vaccine Quad IM, Preserv and ABX Free 6 MO-64 YRS 2021-10-15 00:00:00 Completed [facility] Influenza Virus Vaccine Quad IM, Preserv and ABX Free 6 MO-64 YRS 2021-10-15 00:00:00 Completed [facility] Influenza Virus Vaccine Quad IM, Preserv and ABX Free 6 MO-64 YRS 2021-10-15 00:00:00 Completed [facility] Influenza Virus Vaccine Quad IM, Preserv and ABX Free 6 MO-64 YRS 2021-10-15 00:00:00 Completed [facility] Influenza Virus Vaccine Quad IM, Preserv and ABX Free 6 MO-64 YRS 2021-10-15 00:00:00 Completed [facility] Influenza Virus Vaccine Quad IM, Preserv and ABX Free 6 MO-64 YRS 2021-10-15 00:00:00 Completed [facility] Influenza Virus Vaccine Quad IM, Preserv and ABX Free 6 MO-64 YRS 2021-10-15 00:00:00 Completed [facility] Influenza Virus Vaccine Quad IM, Preserv and ABX Free 6 MO-64 YRS 2021-10-15 00:00:00 Completed [facility] Influenza Virus Vaccine Quad IM, Preserv and ABX Free 6 MO-64 YRS 2021-10-15 00:00:00 Completed [facility] Influenza Virus Vaccine Quad IM, Preserv and ABX Free 6 MO-64 YRS 2021-10-15 00:00:00 Completed [facility] Influenza Virus Vaccine Quad IM, Preserv and ABX Free 6 MO-64 YRS 2021-10-15 00:00:00 Completed [facility] Influenza Virus Vaccine Quad IM, Preserv and ABX Free 6 MO-64 YRS 2021-10-15 00:00:00 Completed [facility] Influenza Virus Vaccine Quad IM, Preserv and ABX Free 6 MO-64 YRS 2021-10-15 00:00:00 Completed [facility] Influenza Virus Vaccine Quad IM, Preserv and ABX Free 6 MO-64 YRS 2021-10-15 00:00:00 Completed [facility] Influenza Virus Vaccine Quad IM, Preserv and ABX Free 6 MO-64 YRS 2021-10-15 00:00:00 Completed [facility] Influenza Virus Vaccine Quad IM, Preserv and ABX Free 6 MO-64 YRS 2021-10-15 00:00:00 Completed [facility] Influenza Virus Vaccine Quad IM, Preserv and ABX Free 6 MO-64 YRS 2021-10-15 00:00:00 Completed [facility] Influenza Virus Vaccine Quad IM, Preserv and ABX Free 6 MO-64 YRS 2021-10-15 00:00:00 Completed [facility] Influenza Virus Vaccine Quad IM, Preserv and ABX Free 6 MO-64 YRS 2021-10-15 00:00:00 Completed [facility] Influenza Virus Vaccine Quad IM, Preserv and ABX Free 6 MO-64 YRS 2021-10-15 00:00:00 Completed [facility] Influenza Virus Vaccine Quad IM, Preserv and ABX Free 6 MO-64 YRS 2021-10-15 00:00:00 Completed [facility] Influenza Virus Vaccine Quad IM, Preserv and ABX Free 6 MO-64 YRS 2021-10-15 00:00:00 Completed [facility] Influenza Virus Vaccine Quad IM, Preserv and ABX Free 6 MO-64 YRS 2021-10-15 00:00:00 Completed [facility] Influenza Virus Vaccine Quad IM, Preserv and ABX Free 6 MO-64 YRS 2021-10-15 00:00:00 Completed [facility] Influenza Virus Vaccine Quad IM, Preserv and ABX Free 6 MO-64 YRS 2021-10-15 00:00:00 Completed [facility] Influenza Virus Vaccine Quad IM, Preserv and ABX Free 6 MO-64 YRS 2021-10-15 00:00:00 Completed [facility] Influenza Virus Vaccine Quad IM, Preserv and ABX Free 6 MO-64 YRS 2021-10-15 00:00:00 Completed [facility] Influenza Virus Vaccine Quad IM, Preserv and ABX Free 6 MO-64 YRS 2021-10-15 00:00:00 Completed [facility] Influenza Virus Vaccine Quad IM, Preserv and ABX Free 6 MO-64 YRS 2021-10-15 00:00:00 Completed [facility] Influenza Virus Vaccine Quad IM, Preserv and ABX Free 6 MO-64 YRS 2021-10-15 00:00:00 Completed [facility] Influenza Virus Vaccine Quad IM, Preserv and ABX Free 6 MO-64 YRS 2021-10-15 00:00:00 Completed [facility] Influenza Virus Vaccine Quad IM, Preserv and ABX Free 6 MO-64 YRS 2021-10-15 00:00:00 Completed [facility] Influenza Virus Vaccine Quad IM, Preserv and ABX Free 6 MO-64 YRS 2021-10-15 00:00:00 Completed [facility] Influenza Virus Vaccine Quad IM, Preserv and ABX Free 6 MO-64 YRS 2021-10-15 00:00:00 Completed [facility] Influenza Virus Vaccine Quad IM, Preserv and ABX Free 6 MO-64 YRS 2021-10-15 00:00:00 Completed [facility] Influenza Virus Vaccine Quad IM, Preserv and ABX Free 6 MO-64 YRS 2021-10-15 00:00:00 Completed [facility] Influenza Virus Vaccine Quad IM, Preserv and ABX Free 6 MO-64 YRS 2021-10-15 00:00:00 Completed [facility] Influenza Virus Vaccine Quad IM, Preserv and ABX Free 6 MO-64 YRS 2021-10-15 00:00:00 Completed [facility] Influenza Virus Vaccine Quad IM, Preserv and ABX Free 6 MO-64 YRS 2021-10-15 00:00:00 Completed [facility] Influenza Virus Vaccine Quad IM, Preserv and ABX Free 6 MO-64 YRS 2021-10-15 00:00:00 Completed [facility] Influenza Virus Vaccine Quad IM, Preserv and ABX Free 6 MO-64 YRS (FLUCELVAX) 2021-10-15 00:00:00 Completed [facility] SARS-COV-2 COVID-19 PFIZER VACCINE 2021-06-17 00:00:00 Completed [facility] SARS-COV-2 COVID-19 PFIZER VACCINE 2021-06-17 00:00:00 Completed [facility] SARS-COV-2 COVID-19 PFIZER VACCINE 2021-06-17 00:00:00 Completed [facility] SARS-COV-2 COVID-19 PFIZER VACCINE 2021-06-17 00:00:00 Completed [facility] SARS-COV-2 COVID-19 PFIZER VACCINE 2021-06-17 00:00:00 Completed [facility] SARS-COV-2 COVID-19 PFIZER VACCINE 2021-06-17 00:00:00 Completed [facility] SARS-COV-2 COVID-19 PFIZER VACCINE 2021-06-17 00:00:00 Completed [facility] SARS-COV-2 COVID-19 PFIZER VACCINE 2021-06-17 00:00:00 Completed [facility] SARS-COV-2 COVID-19 PFIZER VACCINE 2021-06-17 00:00:00 Completed [facility] SARS-COV-2 COVID-19 PFIZER VACCINE 2021-06-17 00:00:00 Completed [facility] SARS-COV-2 COVID-19 PFIZER VACCINE 2021-06-17 00:00:00 Completed [facility] SARS-COV-2 COVID-19 PFIZER VACCINE 2021-06-17 00:00:00 Completed [facility] SARS-COV-2 COVID-19 PFIZER VACCINE 2021-06-17 00:00:00 Completed [facility] SARS-COV-2 COVID-19 PFIZER VACCINE 2021-06-17 00:00:00 Completed [facility] SARS-COV-2 COVID-19 PFIZER VACCINE 2021-06-17 00:00:00 Completed [facility] SARS-COV-2 COVID-19 PFIZER VACCINE 2021-06-17 00:00:00 Completed [facility] SARS-COV-2 COVID-19 PFIZER VACCINE 2021-06-17 00:00:00 Completed [facility] SARS-COV-2 COVID-19 PFIZER VACCINE 2021-06-17 00:00:00 Completed [facility] SARS-COV-2 COVID-19 PFIZER VACCINE 2021-06-17 00:00:00 Completed [facility] SARS-COV-2 COVID-19 PFIZER VACCINE 2021-06-17 00:00:00 Completed [facility] SARS-COV-2 COVID-19 PFIZER VACCINE 2021-06-17 00:00:00 Completed [facility] SARS-COV-2 COVID-19 PFIZER VACCINE 2021-06-17 00:00:00 Completed [facility] SARS-COV-2 COVID-19 PFIZER VACCINE 2021-06-17 00:00:00 Completed [facility] SARS-COV-2 COVID-19 PFIZER VACCINE 2021-06-17 00:00:00 Completed [facility] SARS-COV-2 COVID-19 PFIZER VACCINE 2021-06-17 00:00:00 Completed [facility] SARS-COV-2 COVID-19 PFIZER VACCINE 2021-06-17 00:00:00 Completed [facility] SARS-COV-2 COVID-19 PFIZER VACCINE 2021-06-17 00:00:00 Completed [facility] SARS-COV-2 COVID-19 PFIZER VACCINE 2021-06-17 00:00:00 Completed [facility] SARS-COV-2 COVID-19 PFIZER VACCINE 2021-06-17 00:00:00 Completed [facility] SARS-COV-2 COVID-19 PFIZER VACCINE 2021-06-17 00:00:00 Completed [facility] SARS-COV-2 COVID-19 PFIZER VACCINE 2021-06-17 00:00:00 Completed [facility] SARS-COV-2 COVID-19 PFIZER VACCINE 2021-06-17 00:00:00 Completed [facility] SARS-COV-2 COVID-19 PFIZER VACCINE 2021-06-17 00:00:00 Completed [facility] SARS-COV-2 COVID-19 PFIZER VACCINE 2021-06-17 00:00:00 Completed [facility] SARS-COV-2 COVID-19 PFIZER VACCINE 2021-06-17 00:00:00 Completed [facility] SARS-COV-2 COVID-19 PFIZER VACCINE 2021-06-17 00:00:00 Completed [facility] SARS-COV-2 COVID-19 PFIZER VACCINE 2021-06-17 00:00:00 Completed [facility] SARS-COV-2 COVID-19 PFIZER VACCINE 2021-06-17 00:00:00 Completed [facility] SARS-COV-2 COVID-19 PFIZER VACCINE 2021-06-17 00:00:00 Completed [facility] SARS-COV-2 COVID-19 PFIZER VACCINE 2021-06-17 00:00:00 Completed [facility] SARS-COV-2 COVID-19 PFIZER VACCINE 2021-06-17 00:00:00 Completed [facility] SARS-COV-2 COVID-19 PFIZER VACCINE 2021-06-17 00:00:00 Completed [facility] SARS-COV-2 COVID-19 PFIZER VACCINE 2021-06-17 00:00:00 Completed [facility] SARS-COV-2 COVID-19 PFIZER VACCINE 2021-06-17 00:00:00 Completed [facility] SARS-COV-2 COVID-19 PFIZER VACCINE 2021-06-17 00:00:00 Completed [facility] SARS-COV-2 COVID-19 PFIZER VACCINE 2021-06-17 00:00:00 Completed [facility] SARS-COV-2 COVID-19 PFIZER VACCINE 2021-06-17 00:00:00 Completed [facility] SARS-COV-2 COVID-19 PFIZER VACCINE 2021-06-17 00:00:00 Completed [facility] SARS-COV-2 COVID-19 PFIZER VACCINE 2021-06-17 00:00:00 Completed [facility] SARS-COV-2 COVID-19 PFIZER VACCINE 2021-06-17 00:00:00 Completed [facility] SARS-COV-2 COVID-19 PFIZER VACCINE 2021-06-17 00:00:00 Completed [facility] SARS-COV-2 COVID-19 PFIZER VACCINE 2021-06-17 00:00:00 Completed [facility] SARS-COV-2 COVID-19 PFIZER VACCINE 2021-06-17 00:00:00 Completed [facility] SARS-COV-2 COVID-19 PFIZER VACCINE 2021-06-17 00:00:00 Completed [facility] SARS-COV-2 COVID-19 PFIZER VACCINE 2020-12-24 00:00:00 Completed [facility] SARS-COV-2 COVID-19 PFIZER VACCINE 2020-12-24 00:00:00 Completed [facility] SARS-COV-2 COVID-19 PFIZER VACCINE 2020-12-24 00:00:00 Completed [facility] SARS-COV-2 COVID-19 PFIZER VACCINE 2020-12-24 00:00:00 Completed [facility] SARS-COV-2 COVID-19 PFIZER VACCINE 2020-12-24 00:00:00 Completed [facility] SARS-COV-2 COVID-19 PFIZER VACCINE 2020-12-24 00:00:00 Completed [facility] SARS-COV-2 COVID-19 PFIZER VACCINE 2020-12-24 00:00:00 Completed [facility] SARS-COV-2 COVID-19 PFIZER VACCINE 2020-12-24 00:00:00 Completed [facility] SARS-COV-2 COVID-19 PFIZER VACCINE 2020-12-24 00:00:00 Completed [facility] SARS-COV-2 COVID-19 PFIZER VACCINE 2020-12-24 00:00:00 Completed [facility] SARS-COV-2 COVID-19 PFIZER VACCINE 2020-12-24 00:00:00 Completed [facility] SARS-COV-2 COVID-19 PFIZER VACCINE 2020-12-24 00:00:00 Completed [facility] SARS-COV-2 COVID-19 PFIZER VACCINE 2020-12-24 00:00:00 Completed [facility] SARS-COV-2 COVID-19 PFIZER VACCINE 2020-12-24 00:00:00 Completed [facility] SARS-COV-2 COVID-19 PFIZER VACCINE 2020-12-24 00:00:00 Completed [facility] SARS-COV-2 COVID-19 PFIZER VACCINE 2020-12-24 00:00:00 Completed [facility] SARS-COV-2 COVID-19 PFIZER VACCINE 2020-12-24 00:00:00 Completed [facility] SARS-COV-2 COVID-19 PFIZER VACCINE 2020-12-24 00:00:00 Completed [facility] SARS-COV-2 COVID-19 PFIZER VACCINE 2020-12-24 00:00:00 Completed [facility] SARS-COV-2 COVID-19 PFIZER VACCINE 2020-12-24 00:00:00 Completed [facility] SARS-COV-2 COVID-19 PFIZER VACCINE 2020-12-24 00:00:00 Completed [facility] SARS-COV-2 COVID-19 PFIZER VACCINE 2020-12-24 00:00:00 Completed [facility] SARS-COV-2 COVID-19 PFIZER VACCINE 2020-12-24 00:00:00 Completed [facility] SARS-COV-2 COVID-19 PFIZER VACCINE 2020-12-24 00:00:00 Completed [facility] SARS-COV-2 COVID-19 PFIZER VACCINE 2020-12-24 00:00:00 Completed [facility] SARS-COV-2 COVID-19 PFIZER VACCINE 2020-12-24 00:00:00 Completed [facility] SARS-COV-2 COVID-19 PFIZER VACCINE 2020-12-24 00:00:00 Completed [facility] SARS-COV-2 COVID-19 PFIZER VACCINE 2020-12-24 00:00:00 Completed [facility] SARS-COV-2 COVID-19 PFIZER VACCINE 2020-12-24 00:00:00 Completed [facility] SARS-COV-2 COVID-19 PFIZER VACCINE 2020-12-24 00:00:00 Completed [facility] SARS-COV-2 COVID-19 PFIZER VACCINE 2020-12-24 00:00:00 Completed [facility] SARS-COV-2 COVID-19 PFIZER VACCINE 2020-12-24 00:00:00 Completed [facility] SARS-COV-2 COVID-19 PFIZER VACCINE 2020-12-24 00:00:00 Completed [facility] SARS-COV-2 COVID-19 PFIZER VACCINE 2020-12-24 00:00:00 Completed [facility] SARS-COV-2 COVID-19 PFIZER VACCINE 2020-12-24 00:00:00 Completed [facility] SARS-COV-2 COVID-19 PFIZER VACCINE 2020-12-24 00:00:00 Completed [facility] SARS-COV-2 COVID-19 PFIZER VACCINE 2020-12-24 00:00:00 Completed [facility] SARS-COV-2 COVID-19 PFIZER VACCINE 2020-12-24 00:00:00 Completed [facility] SARS-COV-2 COVID-19 PFIZER VACCINE 2020-12-24 00:00:00 Completed [facility] SARS-COV-2 COVID-19 PFIZER VACCINE 2020-12-24 00:00:00 Completed [facility] SARS-COV-2 COVID-19 PFIZER VACCINE 2020-12-24 00:00:00 Completed [facility] SARS-COV-2 COVID-19 PFIZER VACCINE 2020-12-24 00:00:00 Completed [facility] SARS-COV-2 COVID-19 PFIZER VACCINE 2020-12-24 00:00:00 Completed [facility] SARS-COV-2 COVID-19 PFIZER VACCINE 2020-12-24 00:00:00 Completed [facility] SARS-COV-2 COVID-19 PFIZER VACCINE 2020-12-24 00:00:00 Completed [facility] SARS-COV-2 COVID-19 PFIZER VACCINE 2020-12-24 00:00:00 Completed [facility] SARS-COV-2 COVID-19 PFIZER VACCINE 2020-12-24 00:00:00 Completed [facility] SARS-COV-2 COVID-19 PFIZER VACCINE 2020-12-24 00:00:00 Completed [facility] SARS-COV-2 COVID-19 PFIZER VACCINE 2020-12-24 00:00:00 Completed [facility] SARS-COV-2 COVID-19 PFIZER VACCINE 2020-12-24 00:00:00 Completed [facility] SARS-COV-2 COVID-19 PFIZER VACCINE 2020-12-24 00:00:00 Completed [facility] SARS-COV-2 COVID-19 PFIZER VACCINE 2020-12-24 00:00:00 Completed [facility] SARS-COV-2 COVID-19 PFIZER VACCINE 2020-12-24 00:00:00 Completed [facility] SARS-COV-2 COVID-19 PFIZER VACCINE 2020-12-24 00:00:00 Completed [facility] SARS-COV-2 COVID-19 PFIZER VACCINE 2020-12-03 00:00:00 Completed [facility] SARS-COV-2 COVID-19 PFIZER VACCINE 2020-12-03 00:00:00 Completed [facility] SARS-COV-2 COVID-19 PFIZER VACCINE 2020-12-03 00:00:00 Completed [facility] SARS-COV-2 COVID-19 PFIZER VACCINE 2020-12-03 00:00:00 Completed [facility] SARS-COV-2 COVID-19 PFIZER VACCINE 2020-12-03 00:00:00 Completed [facility] SARS-COV-2 COVID-19 PFIZER VACCINE 2020-12-03 00:00:00 Completed [facility] SARS-COV-2 COVID-19 PFIZER VACCINE 2020-12-03 00:00:00 Completed [facility] SARS-COV-2 COVID-19 PFIZER VACCINE 2020-12-03 00:00:00 Completed [facility] SARS-COV-2 COVID-19 PFIZER VACCINE 2020-12-03 00:00:00 Completed [facility] SARS-COV-2 COVID-19 PFIZER VACCINE 2020-12-03 00:00:00 Completed [facility] SARS-COV-2 COVID-19 PFIZER VACCINE 2020-12-03 00:00:00 Completed [facility] SARS-COV-2 COVID-19 PFIZER VACCINE 2020-12-03 00:00:00 Completed [facility] SARS-COV-2 COVID-19 PFIZER VACCINE 2020-12-03 00:00:00 Completed [facility] SARS-COV-2 COVID-19 PFIZER VACCINE 2020-12-03 00:00:00 Completed [facility] SARS-COV-2 COVID-19 PFIZER VACCINE 2020-12-03 00:00:00 Completed [facility] SARS-COV-2 COVID-19 PFIZER VACCINE 2020-12-03 00:00:00 Completed [facility] SARS-COV-2 COVID-19 PFIZER VACCINE 2020-12-03 00:00:00 Completed [facility] SARS-COV-2 COVID-19 PFIZER VACCINE 2020-12-03 00:00:00 Completed [facility] SARS-COV-2 COVID-19 PFIZER VACCINE 2020-12-03 00:00:00 Completed [facility] SARS-COV-2 COVID-19 PFIZER VACCINE 2020-12-03 00:00:00 Completed [facility] SARS-COV-2 COVID-19 PFIZER VACCINE 2020-12-03 00:00:00 Completed [facility] SARS-COV-2 COVID-19 PFIZER VACCINE 2020-12-03 00:00:00 Completed [facility] SARS-COV-2 COVID-19 PFIZER VACCINE 2020-12-03 00:00:00 Completed [facility] SARS-COV-2 COVID-19 PFIZER VACCINE 2020-12-03 00:00:00 Completed [facility] SARS-COV-2 COVID-19 PFIZER VACCINE 2020-12-03 00:00:00 Completed [facility] SARS-COV-2 COVID-19 PFIZER VACCINE 2020-12-03 00:00:00 Completed [facility] SARS-COV-2 COVID-19 PFIZER VACCINE 2020-12-03 00:00:00 Completed [facility] SARS-COV-2 COVID-19 PFIZER VACCINE 2020-12-03 00:00:00 Completed [facility] SARS-COV-2 COVID-19 PFIZER VACCINE 2020-12-03 00:00:00 Completed [facility] SARS-COV-2 COVID-19 PFIZER VACCINE 2020-12-03 00:00:00 Completed [facility] SARS-COV-2 COVID-19 PFIZER VACCINE 2020-12-03 00:00:00 Completed [facility] SARS-COV-2 COVID-19 PFIZER VACCINE 2020-12-03 00:00:00 Completed [facility] SARS-COV-2 COVID-19 PFIZER VACCINE 2020-12-03 00:00:00 Completed [facility] SARS-COV-2 COVID-19 PFIZER VACCINE 2020-12-03 00:00:00 Completed [facility] SARS-COV-2 COVID-19 PFIZER VACCINE 2020-12-03 00:00:00 Completed [facility] SARS-COV-2 COVID-19 PFIZER VACCINE 2020-12-03 00:00:00 Completed [facility] SARS-COV-2 COVID-19 PFIZER VACCINE 2020-12-03 00:00:00 Completed [facility] SARS-COV-2 COVID-19 PFIZER VACCINE 2020-12-03 00:00:00 Completed [facility] SARS-COV-2 COVID-19 PFIZER VACCINE 2020-12-03 00:00:00 Completed [facility] SARS-COV-2 COVID-19 PFIZER VACCINE 2020-12-03 00:00:00 Completed [facility] SARS-COV-2 COVID-19 PFIZER VACCINE 2020-12-03 00:00:00 Completed [facility] SARS-COV-2 COVID-19 PFIZER VACCINE 2020-12-03 00:00:00 Completed [facility] SARS-COV-2 COVID-19 PFIZER VACCINE 2020-12-03 00:00:00 Completed [facility] SARS-COV-2 COVID-19 PFIZER VACCINE 2020-12-03 00:00:00 Completed [facility] SARS-COV-2 COVID-19 PFIZER VACCINE 2020-12-03 00:00:00 Completed [facility] SARS-COV-2 COVID-19 PFIZER VACCINE 2020-12-03 00:00:00 Completed [facility] SARS-COV-2 COVID-19 PFIZER VACCINE 2020-12-03 00:00:00 Completed [facility] SARS-COV-2 COVID-19 PFIZER VACCINE 2020-12-03 00:00:00 Completed [facility] SARS-COV-2 COVID-19 PFIZER VACCINE 2020-12-03 00:00:00 Completed [facility] SARS-COV-2 COVID-19 PFIZER VACCINE 2020-12-03 00:00:00 Completed [facility] SARS-COV-2 COVID-19 PFIZER VACCINE 2020-12-03 00:00:00 Completed [facility] SARS-COV-2 COVID-19 PFIZER VACCINE 2020-12-03 00:00:00 Completed [facility] SARS-COV-2 COVID-19 PFIZER VACCINE 2020-12-03 00:00:00 Completed [facility] SARS-COV-2 COVID-19 PFIZER VACCINE 2020-12-03 00:00:00 Completed [facility] Pneumococcal Polysaccharide, PPSV23 (PNEUMOVAX) 2019-07-05 00:00:00 Completed [facility] Influenza Virus Vaccine Quad IM 3+ YRS 2019-07-05 00:00:00 Completed [facility] Twinrix (hep a/hep b) 2019-07-05 00:00:00 Completed [facility] Pneumococcal Polysaccharide, PPSV23 (PNEUMOVAX) 2019-07-05 00:00:00 Completed [facility] Influenza Virus Vaccine Quad IM 3+ YRS 2019-07-05 00:00:00 Completed [facility] Twinrix (hep a/hep b) 2019-07-05 00:00:00 Completed [facility] Pneumococcal Polysaccharide, PPSV23 (PNEUMOVAX) 2019-07-05 00:00:00 Completed [facility] Influenza Virus Vaccine Quad IM 3+ YRS 2019-07-05 00:00:00 Completed [facility] Twinrix (hep a/hep b) 2019-07-05 00:00:00 Completed [facility] Pneumococcal Polysaccharide, PPSV23 (PNEUMOVAX) 2019-07-05 00:00:00 Completed [facility] Influenza Virus Vaccine Quad IM 3+ YRS 2019-07-05 00:00:00 Completed [facility] Twinrix (hep a/hep b) 2019-07-05 00:00:00 Completed [facility] Pneumococcal Polysaccharide, PPSV23 (PNEUMOVAX) 2019-07-05 00:00:00 Completed [facility] Influenza Virus Vaccine Quad IM 3+ YRS 2019-07-05 00:00:00 Completed [facility] Twinrix (hep a/hep b) 2019-07-05 00:00:00 Completed [facility] Pneumococcal Polysaccharide, PPSV23 (PNEUMOVAX) 2019-07-05 00:00:00 Completed [facility] Influenza Virus Vaccine Quad IM 3+ YRS 2019-07-05 00:00:00 Completed [facility] Twinrix (hep a/hep b) 2019-07-05 00:00:00 Completed [facility] Pneumococcal Polysaccharide, PPSV23 (PNEUMOVAX) 2019-07-05 00:00:00 Completed [facility] Influenza Virus Vaccine Quad IM 3+ YRS 2019-07-05 00:00:00 Completed [facility] Twinrix (hep a/hep b) 2019-07-05 00:00:00 Completed [facility] Pneumococcal Polysaccharide, PPSV23 (PNEUMOVAX) 2019-07-05 00:00:00 Completed [facility] Influenza Virus Vaccine Quad IM 3+ YRS 2019-07-05 00:00:00 Completed [facility] Twinrix (hep a/hep b) 2019-07-05 00:00:00 Completed [facility] Pneumococcal Polysaccharide, PPSV23 (PNEUMOVAX) 2019-07-05 00:00:00 Completed [facility] Influenza Virus Vaccine Quad IM 3+ YRS 2019-07-05 00:00:00 Completed [facility] Twinrix (hep a/hep b) 2019-07-05 00:00:00 Completed [facility] Pneumococcal Polysaccharide, PPSV23 (PNEUMOVAX) 2019-07-05 00:00:00 Completed [facility] Influenza Virus Vaccine Quad IM 3+ YRS 2019-07-05 00:00:00 Completed [facility] Twinrix (hep a/hep b) 2019-07-05 00:00:00 Completed [facility] Pneumococcal Polysaccharide, PPSV23 (PNEUMOVAX) 2019-07-05 00:00:00 Completed [facility] Influenza Virus Vaccine Quad IM 3+ YRS 2019-07-05 00:00:00 Completed [facility] (hep a/hep b) 2019-07-05 00:00:00 Completed [facility] Pneumococcal Polysaccharide, PPSV23 (PNEUMOVAX) 2019-07-05 00:00:00 Completed [facility] Influenza Virus Vaccine Quad IM 3+ YRS 2019-07-05 00:00:00 Completed [facility] (hep a/hep b) 2019-07-05 00:00:00 Completed [facility] Pneumococcal Polysaccharide, PPSV23 (PNEUMOVAX) 2019-07-05 00:00:00 Completed [facility] Influenza Virus Vaccine Quad IM 3+ YRS 2019-07-05 00:00:00 Completed [facility] (hep a/hep b) 2019-07-05 00:00:00 Completed [facility] Pneumococcal Polysaccharide, PPSV23 (PNEUMOVAX) 2019-07-05 00:00:00 Completed [facility] Influenza Virus Vaccine Quad IM 3+ YRS 2019-07-05 00:00:00 Completed [facility] (hep a/hep b) 2019-07-05 00:00:00 Completed [facility] Pneumococcal Polysaccharide, PPSV23 (PNEUMOVAX) 2019-07-05 00:00:00 Completed [facility] Influenza Virus Vaccine Quad IM 3+ YRS 2019-07-05 00:00:00 Completed [facility] (hep a/hep b) 2019-07-05 00:00:00 Completed [facility] Pneumococcal Polysaccharide, PPSV23 (PNEUMOVAX) 2019-07-05 00:00:00 Completed [facility] Influenza Virus Vaccine Quad IM 3+ YRS 2019-07-05 00:00:00 Completed [facility] (hep a/hep b) 2019-07-05 00:00:00 Completed [facility] Pneumococcal Polysaccharide, PPSV23 (PNEUMOVAX) 2019-07-05 00:00:00 Completed [facility] Influenza Virus Vaccine Quad IM 3+ YRS 2019-07-05 00:00:00 Completed [facility] (hep a/hep b) 2019-07-05 00:00:00 Completed [facility] Pneumococcal Polysaccharide, PPSV23 (PNEUMOVAX) 2019-07-05 00:00:00 Completed [facility] Influenza Virus Vaccine Quad IM 3+ YRS 2019-07-05 00:00:00 Completed [facility] (hep a/hep b) 2019-07-05 00:00:00 Completed [facility] Pneumococcal Polysaccharide, PPSV23 (PNEUMOVAX) 2019-07-05 00:00:00 Completed [facility] Influenza Virus Vaccine Quad IM 3+ YRS 2019-07-05 00:00:00 Completed [facility] (hep a/hep b) 2019-07-05 00:00:00 Completed [facility] Pneumococcal Polysaccharide, PPSV23 (PNEUMOVAX) 2019-07-05 00:00:00 Completed [facility] Influenza Virus Vaccine Quad IM 3+ YRS 2019-07-05 00:00:00 Completed [facility] (hep a/hep b) 2019-07-05 00:00:00 Completed [facility] Pneumococcal Polysaccharide, PPSV23 (PNEUMOVAX) 2019-07-05 00:00:00 Completed [facility] Influenza Virus Vaccine Quad IM 3+ YRS 2019-07-05 00:00:00 Completed [facility] (hep a/hep b) 2019-07-05 00:00:00 Completed [facility] Pneumococcal Polysaccharide, PPSV23 (PNEUMOVAX) 2019-07-05 00:00:00 Completed [facility] Influenza Virus Vaccine Quad IM 3+ YRS 2019-07-05 00:00:00 Completed [facility] (hep a/hep b) 2019-07-05 00:00:00 Completed [facility] Pneumococcal Polysaccharide, PPSV23 (PNEUMOVAX) 2019-07-05 00:00:00 Completed [facility] Influenza Virus Vaccine Quad IM 3+ YRS 2019-07-05 00:00:00 Completed [facility] (hep a/hep b) 2019-07-05 00:00:00 Completed [facility] Pneumococcal Polysaccharide, PPSV23 (PNEUMOVAX) 2019-07-05 00:00:00 Completed [facility] Influenza Virus Vaccine Quad IM 3+ YRS 2019-07-05 00:00:00 Completed [facility] (hep a/hep b) 2019-07-05 00:00:00 Completed [facility] Pneumococcal Polysaccharide, PPSV23 (PNEUMOVAX) 2019-07-05 00:00:00 Completed [facility] Influenza Virus Vaccine Quad IM 3+ YRS 2019-07-05 00:00:00 Completed [facility] (hep a/hep b) 2019-07-05 00:00:00 Completed [facility] Pneumococcal Polysaccharide, PPSV23 (PNEUMOVAX) 2019-07-05 00:00:00 Completed [facility] Influenza Virus Vaccine Quad IM 3+ YRS 2019-07-05 00:00:00 Completed [facility] (hep a/hep b) 2019-07-05 00:00:00 Completed [facility] Pneumococcal Polysaccharide, PPSV23 (PNEUMOVAX) 2019-07-05 00:00:00 Completed [facility] Influenza Virus Vaccine Quad IM 3+ YRS 2019-07-05 00:00:00 Completed [facility] (hep a/hep b) 2019-07-05 00:00:00 Completed [facility] Pneumococcal Polysaccharide, PPSV23 (PNEUMOVAX) 2019-07-05 00:00:00 Completed [facility] Influenza Virus Vaccine Quad IM 3+ YRS 2019-07-05 00:00:00 Completed [facility] (hep a/hep b) 2019-07-05 00:00:00 Completed [facility] Pneumococcal Polysaccharide, PPSV23 (PNEUMOVAX) 2019-07-05 00:00:00 Completed [facility] Influenza Virus Vaccine Quad IM 3+ YRS 2019-07-05 00:00:00 Completed [facility] (hep a/hep b) 2019-07-05 00:00:00 Completed [facility] Pneumococcal Polysaccharide, PPSV23 (PNEUMOVAX) 2019-07-05 00:00:00 Completed [facility] Influenza Virus Vaccine Quad IM 3+ YRS 2019-07-05 00:00:00 Completed [facility] (hep a/hep b) 2019-07-05 00:00:00 Completed [facility] Pneumococcal Polysaccharide, PPSV23 (PNEUMOVAX) 2019-07-05 00:00:00 Completed [facility] Influenza Virus Vaccine Quad IM 3+ YRS 2019-07-05 00:00:00 Completed [facility] (hep a/hep b) 2019-07-05 00:00:00 Completed [facility] Pneumococcal Polysaccharide, PPSV23 (PNEUMOVAX) 2019-07-05 00:00:00 Completed [facility] Influenza Virus Vaccine Quad IM 3+ YRS 2019-07-05 00:00:00 Completed [facility] (hep a/hep b) 2019-07-05 00:00:00 Completed [facility] Pneumococcal Polysaccharide, PPSV23 (PNEUMOVAX) 2019-07-05 00:00:00 Completed [facility] Influenza Virus Vaccine Quad IM 3+ YRS 2019-07-05 00:00:00 Completed [facility] (hep a/hep b) 2019-07-05 00:00:00 Completed [facility] Pneumococcal Polysaccharide, PPSV23 (PNEUMOVAX) 2019-07-05 00:00:00 Completed [facility] Influenza Virus Vaccine Quad IM 3+ YRS 2019-07-05 00:00:00 Completed [facility] (hep a/hep b) 2019-07-05 00:00:00 Completed [facility] Pneumococcal Polysaccharide, PPSV23 (PNEUMOVAX) 2019-07-05 00:00:00 Completed [facility] Influenza Virus Vaccine Quad IM 3+ YRS 2019-07-05 00:00:00 Completed [facility] (hep a/hep b) 2019-07-05 00:00:00 Completed [facility] Pneumococcal Polysaccharide, PPSV23 (PNEUMOVAX) 2019-07-05 00:00:00 Completed [facility] Influenza Virus Vaccine Quad IM 3+ YRS 2019-07-05 00:00:00 Completed [facility] (hep a/hep b) 2019-07-05 00:00:00 Completed [facility] Pneumococcal Polysaccharide, PPSV23 (PNEUMOVAX) 2019-07-05 00:00:00 Completed [facility] Influenza Virus Vaccine Quad IM 3+ YRS 2019-07-05 00:00:00 Completed [facility] (hep a/hep b) 2019-07-05 00:00:00 Completed [facility] Pneumococcal Polysaccharide, PPSV23 (PNEUMOVAX) 2019-07-05 00:00:00 Completed [facility] Influenza Virus Vaccine Quad IM 3+ YRS 2019-07-05 00:00:00 Completed [facility] (hep a/hep b) 2019-07-05 00:00:00 Completed [facility] Pneumococcal Polysaccharide, PPSV23 (PNEUMOVAX) 2019-07-05 00:00:00 Completed [facility] Influenza Virus Vaccine Quad IM 3+ YRS 2019-07-05 00:00:00 Completed [facility] (hep a/hep b) 2019-07-05 00:00:00 Completed [facility] Pneumococcal Polysaccharide, PPSV23 (PNEUMOVAX) 2019-07-05 00:00:00 Completed [facility] Influenza Virus Vaccine Quad IM 3+ YRS 2019-07-05 00:00:00 Completed [facility] (hep a/hep b) 2019-07-05 00:00:00 Completed [facility] Pneumococcal Polysaccharide, PPSV23 (PNEUMOVAX) 2019-07-05 00:00:00 Completed [facility] Influenza Virus Vaccine Quad IM 3+ YRS 2019-07-05 00:00:00 Completed [facility] (hep a/hep b) 2019-07-05 00:00:00 Completed [facility] Pneumococcal Polysaccharide, PPSV23 (PNEUMOVAX) 2019-07-05 00:00:00 Completed [facility] Influenza Virus Vaccine Quad IM 3+ YRS 2019-07-05 00:00:00 Completed [facility] (hep a/hep b) 2019-07-05 00:00:00 Completed [facility] Pneumococcal Polysaccharide, PPSV23 (PNEUMOVAX) 2019-07-05 00:00:00 Completed [facility] Influenza Virus Vaccine Quad IM 3+ YRS 2019-07-05 00:00:00 Completed [facility] (hep a/hep b) 2019-07-05 00:00:00 Completed [facility] Pneumococcal Polysaccharide, PPSV23 (PNEUMOVAX) 2019-07-05 00:00:00 Completed [facility] Influenza Virus Vaccine Quad IM 3+ YRS 2019-07-05 00:00:00 Completed [facility] (hep a/hep b) 2019-07-05 00:00:00 Completed [facility] Pneumococcal Polysaccharide, PPSV23 (PNEUMOVAX) 2019-07-05 00:00:00 Completed [facility] Influenza Virus Vaccine Quad IM 3+ YRS 2019-07-05 00:00:00 Completed [facility] (hep a/hep b) 2019-07-05 00:00:00 Completed [facility] Pneumococcal Polysaccharide, PPSV23 (PNEUMOVAX) 2019-07-05 00:00:00 Completed [facility] Influenza Virus Vaccine Quad IM 3+ YRS 2019-07-05 00:00:00 Completed [facility] (hep a/hep b) 2019-07-05 00:00:00 Completed [facility] Pneumococcal Polysaccharide, PPSV23 (PNEUMOVAX) 2019-07-05 00:00:00 Completed [facility] Influenza Virus Vaccine Quad IM 3+ YRS 2019-07-05 00:00:00 Completed [facility] (hep a/hep b) 2019-07-05 00:00:00 Completed [facility] Pneumococcal Polysaccharide, PPSV23 (PNEUMOVAX) 2019-07-05 00:00:00 Completed [facility] Influenza Virus Vaccine Quad IM 3+ YRS 2019-07-05 00:00:00 Completed [facility] (hep a/hep b) 2019-07-05 00:00:00 Completed [facility] Pneumococcal Polysaccharide, PPSV23 (PNEUMOVAX) 2019-07-05 00:00:00 Completed [facility] Influenza Virus Vaccine Quad IM 3+ YRS 2019-07-05 00:00:00 Completed [facility] (hep a/hep b) 2019-07-05 00:00:00 Completed [facility] Pneumococcal Polysaccharide, PPSV23 (PNEUMOVAX) 2019-07-05 00:00:00 Completed [facility] Influenza Virus Vaccine Quad IM 3+ YRS 2019-07-05 00:00:00 Completed [facility] (hep a/hep b) 2019-07-05 00:00:00 Completed [facility] Pneumococcal Polysaccharide, PPSV23 (PNEUMOVAX) 2019-07-05 00:00:00 Completed [facility] Influenza Virus Vaccine Quad IM 3+ YRS 2019-07-05 00:00:00 Completed [facility] (hep a/hep b) 2019-07-05 00:00:00 Completed [facility] Pneumococcal Polysaccharide, PPSV23 (PNEUMOVAX) 2019-07-05 00:00:00 Completed [facility] Influenza Virus Vaccine Quad IM 3+ YRS 2019-07-05 00:00:00 Completed [facility] (hep a/hep b) 2019-07-05 00:00:00 Completed [facility] Pneumococcal Polysaccharide, PPSV23 (PNEUMOVAX) 2019-07-05 00:00:00 Completed [facility] Influenza Virus Vaccine Quad IM 3+ YRS 2019-07-05 00:00:00 Completed [facility] (hep a/hep b) 2019-07-05 00:00:00 Completed [facility] Pneumococcal Polysaccharide, PPSV23 (PNEUMOVAX) 2019-07-05 00:00:00 Completed [facility] Influenza Virus Vaccine Quad IM 3+ YRS 2019-07-05 00:00:00 Completed [facility] (hep a/hep b) 2019-07-05 00:00:00 Completed [facility] Pneumococcal 13 Conjugate, PCV13 (Prevnar 13) 2019-03-29 00:00:00 Completed [facility] Pneumococcal 13 Conjugate, PCV13 (Prevnar 13) 2019-03-29 00:00:00 Completed [facility] Pneumococcal 13 Conjugate, PCV13 (Prevnar 13) 2019-03-29 00:00:00 Completed [facility] Pneumococcal 13 Conjugate, PCV13 (Prevnar 13) 2019-03-29 00:00:00 Completed [facility] Pneumococcal 13 Conjugate, PCV13 (Prevnar 13) 2019-03-29 00:00:00 Completed [facility] Pneumococcal 13 Conjugate, PCV13 (Prevnar 13) 2019-03-29 00:00:00 Completed [facility] Pneumococcal 13 Conjugate, PCV13 (Prevnar 13) 2019-03-29 00:00:00 Completed [facility] Pneumococcal 13 Conjugate, PCV13 (Prevnar 13) 2019-03-29 00:00:00 Completed [facility] Pneumococcal 13 Conjugate, PCV13 (Prevnar 13) 2019-03-29 00:00:00 Completed [facility] Pneumococcal 13 Conjugate, PCV13 (Prevnar 13) 2019-03-29 00:00:00 Completed [facility] Pneumococcal 13 Conjugate, PCV13 (Prevnar 13) 2019-03-29 00:00:00 Completed [facility] Pneumococcal 13 Conjugate, PCV13 (Prevnar 13) 2019-03-29 00:00:00 Completed [facility] Pneumococcal 13 Conjugate, PCV13 (Prevnar 13) 2019-03-29 00:00:00 Completed [facility] Pneumococcal 13 Conjugate, PCV13 (Prevnar 13) 2019-03-29 00:00:00 Completed [facility] Pneumococcal 13 Conjugate, PCV13 (Prevnar 13) 2019-03-29 00:00:00 Completed [facility] Pneumococcal 13 Conjugate, PCV13 (Prevnar 13) 2019-03-29 00:00:00 Completed [facility] Pneumococcal 13 Conjugate, PCV13 (Prevnar 13) 2019-03-29 00:00:00 Completed [facility] Pneumococcal 13 Conjugate, PCV13 (Prevnar 13) 2019-03-29 00:00:00 Completed [facility] Pneumococcal 13 Conjugate, PCV13 (Prevnar 13) 2019-03-29 00:00:00 Completed [facility] Pneumococcal 13 Conjugate, PCV13 (Prevnar 13) 2019-03-29 00:00:00 Completed [facility] Pneumococcal 13 Conjugate, PCV13 (Prevnar 13) 2019-03-29 00:00:00 Completed [facility] Pneumococcal 13 Conjugate, PCV13 (Prevnar 13) 2019-03-29 00:00:00 Completed [facility] Pneumococcal 13 Conjugate, PCV13 (Prevnar 13) 2019-03-29 00:00:00 Completed [facility] Pneumococcal 13 Conjugate, PCV13 (Prevnar 13) 2019-03-29 00:00:00 Completed [facility] Pneumococcal 13 Conjugate, PCV13 (Prevnar 13) 2019-03-29 00:00:00 Completed [facility] Pneumococcal 13 Conjugate, PCV13 (Prevnar 13) 2019-03-29 00:00:00 Completed [facility] Pneumococcal 13 Conjugate, PCV13 (Prevnar 13) 2019-03-29 00:00:00 Completed [facility] Pneumococcal 13 Conjugate, PCV13 (Prevnar 13) 2019-03-29 00:00:00 Completed [facility] Pneumococcal 13 Conjugate, PCV13 (Prevnar 13) 2019-03-29 00:00:00 Completed [facility] Pneumococcal 13 Conjugate, PCV13 (Prevnar 13) 2019-03-29 00:00:00 Completed [facility] Pneumococcal 13 Conjugate, PCV13 (Prevnar 13) 2019-03-29 00:00:00 Completed [facility] Pneumococcal 13 Conjugate, PCV13 (Prevnar 13) 2019-03-29 00:00:00 Completed [facility] Pneumococcal 13 Conjugate, PCV13 (Prevnar 13) 2019-03-29 00:00:00 Completed [facility] Pneumococcal 13 Conjugate, PCV13 (Prevnar 13) 2019-03-29 00:00:00 Completed [facility] Pneumococcal 13 Conjugate, PCV13 (Prevnar 13) 2019-03-29 00:00:00 Completed [facility] Pneumococcal 13 Conjugate, PCV13 (Prevnar 13) 2019-03-29 00:00:00 Completed [facility] Pneumococcal 13 Conjugate, PCV13 (Prevnar 13) 2019-03-29 00:00:00 Completed [facility] Pneumococcal 13 Conjugate, PCV13 (Prevnar 13) 2019-03-29 00:00:00 Completed [facility] Pneumococcal 13 Conjugate, PCV13 (Prevnar 13) 2019-03-29 00:00:00 Completed [facility] Pneumococcal 13 Conjugate, PCV13 (Prevnar 13) 2019-03-29 00:00:00 Completed [facility] Pneumococcal 13 Conjugate, PCV13 (Prevnar 13) 2019-03-29 00:00:00 Completed [facility] Pneumococcal 13 Conjugate, PCV13 (Prevnar 13) 2019-03-29 00:00:00 Completed [facility] Pneumococcal 13 Conjugate, PCV13 (Prevnar 13) 2019-03-29 00:00:00 Completed [facility] Pneumococcal 13 Conjugate, PCV13 (Prevnar 13) 2019-03-29 00:00:00 Completed [facility] Pneumococcal 13 Conjugate, PCV13 (Prevnar 13) 2019-03-29 00:00:00 Completed [facility] Pneumococcal 13 Conjugate, PCV13 (Prevnar 13) 2019-03-29 00:00:00 Completed [facility] Pneumococcal 13 Conjugate, PCV13 (Prevnar 13) 2019-03-29 00:00:00 Completed [facility] Pneumococcal 13 Conjugate, PCV13 (Prevnar 13) 2019-03-29 00:00:00 Completed [facility] Pneumococcal 13 Conjugate, PCV13 (Prevnar 13) 2019-03-29 00:00:00 Completed [facility] Pneumococcal 13 Conjugate, PCV13 (Prevnar 13) 2019-03-29 00:00:00 Completed [facility] Pneumococcal 13 Conjugate, PCV13 (Prevnar 13) 2019-03-29 00:00:00 Completed [facility] Pneumococcal 13 Conjugate, PCV13 (Prevnar 13) 2019-03-29 00:00:00 Completed [facility] Pneumococcal 13 Conjugate, PCV13 (Prevnar 13) 2019-03-29 00:00:00 Completed [facility] Pneumococcal 13 Conjugate, PCV13 (Prevnar 13) 2019-03-29 00:00:00 Completed [facility] (hep a/hep b) 2018-11-16 00:00:00 Completed [facility] Influenza Virus Vaccine Quad .5 mL IM 6+ MO 2018-11-16 00:00:00 Completed [facility] (hep a/hep b) 2018-11-16 00:00:00 Completed [facility] Influenza Virus Vaccine Quad .5 mL IM 6+ MO 2018-11-16 00:00:00 Completed [facility] (hep a/hep b) 2018-11-16 00:00:00 Completed [facility] Influenza Virus Vaccine Quad .5 mL IM 6+ MO 2018-11-16 00:00:00 Completed [facility] (hep a/hep b) 2018-11-16 00:00:00 Completed [facility] Influenza Virus Vaccine Quad .5 mL IM 6+ MO 2018-11-16 00:00:00 Completed [facility] (hep a/hep b) 2018-11-16 00:00:00 Completed [facility] Influenza Virus Vaccine Quad .5 mL IM 6+ MO 2018-11-16 00:00:00 Completed [facility] (hep a/hep b) 2018-11-16 00:00:00 Completed [facility] Influenza Virus Vaccine Quad .5 mL IM 6+ MO 2018-11-16 00:00:00 Completed [facility] (hep a/hep b) 2018-11-16 00:00:00 Completed [facility] Influenza Virus Vaccine Quad .5 mL IM 6+ MO 2018-11-16 00:00:00 Completed [facility] (hep a/hep b) 2018-11-16 00:00:00 Completed [facility] Influenza Virus Vaccine Quad .5 mL IM 6+ MO 2018-11-16 00:00:00 Completed [facility] (hep a/hep b) 2018-11-16 00:00:00 Completed [facility] Influenza Virus Vaccine Quad .5 mL IM 6+ MO 2018-11-16 00:00:00 Completed [facility] (hep a/hep b) 2018-11-16 00:00:00 Completed [facility] Influenza Virus Vaccine Quad .5 mL IM 6+ MO 2018-11-16 00:00:00 Completed [facility] (hep a/hep b) 2018-11-16 00:00:00 Completed [facility] Influenza Virus Vaccine Quad .5 mL IM 6+ MO 2018-11-16 00:00:00 Completed [facility] (hep a/hep b) 2018-11-16 00:00:00 Completed [facility] Influenza Virus Vaccine Quad .5 mL IM 6+ MO 2018-11-16 00:00:00 Completed [facility] (hep a/hep b) 2018-11-16 00:00:00 Completed [facility] Influenza Virus Vaccine Quad .5 mL IM 6+ MO 2018-11-16 00:00:00 Completed [facility] (hep a/hep b) 2018-11-16 00:00:00 Completed [facility] Influenza Virus Vaccine Quad .5 mL IM 6+ MO 2018-11-16 00:00:00 Completed [facility] (hep a/hep b) 2018-11-16 00:00:00 Completed [facility] Influenza Virus Vaccine Quad .5 mL IM 6+ MO 2018-11-16 00:00:00 Completed [facility] (hep a/hep b) 2018-11-16 00:00:00 Completed [facility] Influenza Virus Vaccine Quad .5 mL IM 6+ MO 2018-11-16 00:00:00 Completed [facility] (hep a/hep b) 2018-11-16 00:00:00 Completed [facility] Influenza Virus Vaccine Quad .5 mL IM 6+ MO 2018-11-16 00:00:00 Completed [facility] (hep a/hep b) 2018-11-16 00:00:00 Completed [facility] Influenza Virus Vaccine Quad .5 mL IM 6+ MO 2018-11-16 00:00:00 Completed [facility] (hep a/hep b) 2018-11-16 00:00:00 Completed [facility] Influenza Virus Vaccine Quad .5 mL IM 6+ MO 2018-11-16 00:00:00 Completed [facility] (hep a/hep b) 2018-11-16 00:00:00 Completed [facility] Influenza Virus Vaccine Quad .5 mL IM 6+ MO 2018-11-16 00:00:00 Completed [facility] (hep a/hep b) 2018-11-16 00:00:00 Completed [facility] Influenza Virus Vaccine Quad .5 mL IM 6+ MO 2018-11-16 00:00:00 Completed [facility] (hep a/hep b) 2018-11-16 00:00:00 Completed [facility] Influenza Virus Vaccine Quad .5 mL IM 6+ MO 2018-11-16 00:00:00 Completed [facility] (hep a/hep b) 2018-11-16 00:00:00 Completed [facility] Influenza Virus Vaccine Quad .5 mL IM 6+ MO 2018-11-16 00:00:00 Completed [facility] (hep a/hep b) 2018-11-16 00:00:00 Completed [facility] Influenza Virus Vaccine Quad .5 mL IM 6+ MO 2018-11-16 00:00:00 Completed [facility] (hep a/hep b) 2018-11-16 00:00:00 Completed [facility] Influenza Virus Vaccine Quad .5 mL IM 6+ MO 2018-11-16 00:00:00 Completed [facility] (hep a/hep b) 2018-11-16 00:00:00 Completed [facility] Influenza Virus Vaccine Quad .5 mL IM 6+ MO 2018-11-16 00:00:00 Completed [facility] (hep a/hep b) 2018-11-16 00:00:00 Completed [facility] Influenza Virus Vaccine Quad .5 mL IM 6+ MO 2018-11-16 00:00:00 Completed [facility] (hep a/hep b) 2018-11-16 00:00:00 Completed [facility] Influenza Virus Vaccine Quad .5 mL IM 6+ MO 2018-11-16 00:00:00 Completed [facility] (hep a/hep b) 2018-11-16 00:00:00 Completed [facility] Influenza Virus Vaccine Quad .5 mL IM 6+ MO 2018-11-16 00:00:00 Completed [facility] (hep a/hep b) 2018-11-16 00:00:00 Completed [facility] Influenza Virus Vaccine Quad .5 mL IM 6+ MO 2018-11-16 00:00:00 Completed [facility] (hep a/hep b) 2018-11-16 00:00:00 Completed [facility] Influenza Virus Vaccine Quad .5 mL IM 6+ MO 2018-11-16 00:00:00 Completed [facility] (hep a/hep b) 2018-11-16 00:00:00 Completed [facility] Influenza Virus Vaccine Quad .5 mL IM 6+ MO 2018-11-16 00:00:00 Completed [facility] (hep a/hep b) 2018-11-16 00:00:00 Completed [facility] Influenza Virus Vaccine Quad .5 mL IM 6+ MO 2018-11-16 00:00:00 Completed [facility] (hep a/hep b) 2018-11-16 00:00:00 Completed [facility] Influenza Virus Vaccine Quad .5 mL IM 6+ MO 2018-11-16 00:00:00 Completed [facility] (hep a/hep b) 2018-11-16 00:00:00 Completed [facility] Influenza Virus Vaccine Quad .5 mL IM 6+ MO 2018-11-16 00:00:00 Completed [facility] (hep a/hep b) 2018-11-16 00:00:00 Completed [facility] Influenza Virus Vaccine Quad .5 mL IM 6+ MO 2018-11-16 00:00:00 Completed [facility] (hep a/hep b) 2018-11-16 00:00:00 Completed [facility] Influenza Virus Vaccine Quad .5 mL IM 6+ MO 2018-11-16 00:00:00 Completed [facility] (hep a/hep b) 2018-11-16 00:00:00 Completed [facility] Influenza Virus Vaccine Quad .5 mL IM 6+ MO 2018-11-16 00:00:00 Completed [facility] (hep a/hep b) 2018-11-16 00:00:00 Completed [facility] Influenza Virus Vaccine Quad .5 mL IM 6+ MO 2018-11-16 00:00:00 Completed [facility] (hep a/hep b) 2018-11-16 00:00:00 Completed [facility] Influenza Virus Vaccine Quad .5 mL IM 6+ MO 2018-11-16 00:00:00 Completed [facility] (hep a/hep b) 2018-11-16 00:00:00 Completed [facility] Influenza Virus Vaccine Quad .5 mL IM 6+ MO 2018-11-16 00:00:00 Completed [facility] (hep a/hep b) 2018-11-16 00:00:00 Completed [facility] Influenza Virus Vaccine Quad .5 mL IM 6+ MO 2018-11-16 00:00:00 Completed [facility] (hep a/hep b) 2018-11-16 00:00:00 Completed [facility] Influenza Virus Vaccine Quad .5 mL IM 6+ MO 2018-11-16 00:00:00 Completed [facility] (hep a/hep b) 2018-11-16 00:00:00 Completed [facility] Influenza Virus Vaccine Quad .5 mL IM 6+ MO 2018-11-16 00:00:00 Completed [facility] (hep a/hep b) 2018-11-16 00:00:00 Completed [facility] Influenza Virus Vaccine Quad .5 mL IM 6+ MO 2018-11-16 00:00:00 Completed [facility] (hep a/hep b) 2018-11-16 00:00:00 Completed [facility] Influenza Virus Vaccine Quad .5 mL IM 6+ MO 2018-11-16 00:00:00 Completed [facility] (hep a/hep b) 2018-11-16 00:00:00 Completed [facility] Influenza Virus Vaccine Quad .5 mL IM 6+ MO 2018-11-16 00:00:00 Completed [facility] (hep a/hep b) 2018-11-16 00:00:00 Completed [facility] Influenza Virus Vaccine Quad .5 mL IM 6+ MO 2018-11-16 00:00:00 Completed [facility] (hep a/hep b) 2018-11-16 00:00:00 Completed [facility] Influenza Virus Vaccine Quad .5 mL IM 6+ MO 2018-11-16 00:00:00 Completed [facility] (hep a/hep b) 2018-11-16 00:00:00 Completed [facility] Influenza Virus Vaccine Quad .5 mL IM 6+ MO 2018-11-16 00:00:00 Completed [facility] (hep a/hep b) 2018-11-16 00:00:00 Completed [facility] Influenza Virus Vaccine Quad .5 mL IM 6+ MO 2018-11-16 00:00:00 Completed [facility] (hep a/hep b) 2018-11-16 00:00:00 Completed [facility] Influenza Virus Vaccine Quad .5 mL IM 6+ MO 2018-11-16 00:00:00 Completed [facility] (hep a/hep b) 2018-11-16 00:00:00 Completed [facility] Influenza Virus Vaccine Quad .5 mL IM 6+ MO 2018-11-16 00:00:00 Completed [facility] (hep a/hep b) 2018-11-16 00:00:00 Completed [facility] Influenza Virus Vaccine Quad .5 mL IM 6+ MO (FLUZONE/FLULAVAL/F LUARIX) 2018-11-16 00:00:00 Completed [facility] (hep a/hep b) 2018-09-21 00:00:00 Completed [facility] TD[facility] 2018-09-21 00:00:00 Completed [facility] (hep a/hep b) 2018-09-21 00:00:00 Completed [facility] 2018-09-21 00:00:00 Completed [facility] (hep a/hep b) 2018-09-21 00:00:00 Completed [facility] 2018-09-21 00:00:00 Completed [facility] (hep a/hep b) 2018-09-21 00:00:00 Completed [facility] 2018-09-21 00:00:00 Completed [facility] (hep a/hep b) 2018-09-21 00:00:00 Completed [facility] 2018-09-21 00:00:00 Completed [facility] (hep a/hep b) 2018-09-21 00:00:00 Completed [facility] 2018-09-21 00:00:00 Completed [facility] (hep a/hep b) 2018-09-21 00:00:00 Completed [facility] 2018-09-21 00:00:00 Completed [facility] (hep a/hep b) 2018-09-21 00:00:00 Completed [facility] 2018-09-21 00:00:00 Completed [facility] (hep a/hep b) 2018-09-21 00:00:00 Completed [facility] 2018-09-21 00:00:00 Completed [facility] (hep a/hep b) 2018-09-21 00:00:00 Completed [facility] 2018-09-21 00:00:00 Completed [facility] (hep a/hep b) 2018-09-21 00:00:00 Completed [facility] 2018-09-21 00:00:00 Completed [facility] (hep a/hep b) 2018-09-21 00:00:00 Completed [facility] 2018-09-21 00:00:00 Completed [facility] (hep a/hep b) 2018-09-21 00:00:00 Completed [facility] 2018-09-21 00:00:00 Completed [facility] (hep a/hep b) 2018-09-21 00:00:00 Completed [facility] 2018-09-21 00:00:00 Completed [facility] (hep a/hep b) 2018-09-21 00:00:00 Completed [facility] 2018-09-21 00:00:00 Completed [facility] (hep a/hep b) 2018-09-21 00:00:00 Completed [facility] 2018-09-21 00:00:00 Completed [facility] (hep a/hep b) 2018-09-21 00:00:00 Completed [facility] 2018-09-21 00:00:00 Completed [facility] (hep a/hep b) 2018-09-21 00:00:00 Completed [facility] 2018-09-21 00:00:00 Completed [facility] (hep a/hep b) 2018-09-21 00:00:00 Completed [facility] 2018-09-21 00:00:00 Completed [facility] (hep a/hep b) 2018-09-21 00:00:00 Completed [facility] 2018-09-21 00:00:00 Completed [facility] (hep a/hep b) 2018-09-21 00:00:00 Completed [facility] 2018-09-21 00:00:00 Completed [facility] (hep a/hep b) 2018-09-21 00:00:00 Completed [facility] 2018-09-21 00:00:00 Completed [facility] (hep a/hep b) 2018-09-21 00:00:00 Completed [facility] 2018-09-21 00:00:00 Completed [facility] (hep a/hep b) 2018-09-21 00:00:00 Completed [facility] 2018-09-21 00:00:00 Completed [facility] (hep a/hep b) 2018-09-21 00:00:00 Completed [facility] 2018-09-21 00:00:00 Completed [facility] (hep a/hep b) 2018-09-21 00:00:00 Completed [facility] 2018-09-21 00:00:00 Completed [facility] (hep a/hep b) 2018-09-21 00:00:00 Completed [facility] 2018-09-21 00:00:00 Completed [facility] (hep a/hep b) 2018-09-21 00:00:00 Completed [facility] 2018-09-21 00:00:00 Completed [facility] (hep a/hep b) 2018-09-21 00:00:00 Completed [facility] 2018-09-21 00:00:00 Completed [facility] (hep a/hep b) 2018-09-21 00:00:00 Completed [facility] 2018-09-21 00:00:00 Completed [facility] (hep a/hep b) 2018-09-21 00:00:00 Completed [facility] 2018-09-21 00:00:00 Completed [facility] (hep a/hep b) 2018-09-21 00:00:00 Completed [facility] 2018-09-21 00:00:00 Completed [facility] (hep a/hep b) 2018-09-21 00:00:00 Completed [facility] 2018-09-21 00:00:00 Completed [facility] (hep a/hep b) 2018-09-21 00:00:00 Completed [facility] 2018-09-21 00:00:00 Completed [facility] (hep a/hep b) 2018-09-21 00:00:00 Completed [facility] 2018-09-21 00:00:00 Completed [facility] (hep a/hep b) 2018-09-21 00:00:00 Completed [facility] 2018-09-21 00:00:00 Completed [facility] (hep a/hep b) 2018-09-21 00:00:00 Completed [facility] 2018-09-21 00:00:00 Completed [facility] (hep a/hep b) 2018-09-21 00:00:00 Completed [facility] 2018-09-21 00:00:00 Completed [facility] (hep a/hep b) 2018-09-21 00:00:00 Completed [facility] 2018-09-21 00:00:00 Completed [facility] (hep a/hep b) 2018-09-21 00:00:00 Completed [facility] 2018-09-21 00:00:00 Completed [facility] (hep a/hep b) 2018-09-21 00:00:00 Completed [facility] 2018-09-21 00:00:00 Completed [facility] (hep a/hep b) 2018-09-21 00:00:00 Completed [facility] 2018-09-21 00:00:00 Completed [facility] (hep a/hep b) 2018-09-21 00:00:00 Completed [facility] 2018-09-21 00:00:00 Completed [facility] (hep a/hep b) 2018-09-21 00:00:00 Completed [facility] 2018-09-21 00:00:00 Completed [facility] (hep a/hep b) 2018-09-21 00:00:00 Completed [facility] 2018-09-21 00:00:00 Completed [facility] (hep a/hep b) 2018-09-21 00:00:00 Completed [facility] 2018-09-21 00:00:00 Completed [facility] (hep a/hep b) 2018-09-21 00:00:00 Completed [facility] 2018-09-21 00:00:00 Completed [facility] (hep a/hep b) 2018-09-21 00:00:00 Completed [facility] 2018-09-21 00:00:00 Completed [facility] (hep a/hep b) 2018-09-21 00:00:00 Completed [facility] 2018-09-21 00:00:00 Completed [facility] (hep a/hep b) 2018-09-21 00:00:00 Completed [facility] 2018-09-21 00:00:00 Completed [facility] (hep a/hep b) 2018-09-21 00:00:00 Completed [facility] 2018-09-21 00:00:00 Completed [facility] (hep a/hep b) 2018-09-21 00:00:00 Completed [facility] 2018-09-21 00:00:00 Completed [facility] (hep a/hep b) 2018-09-21 00:00:00 Completed [facility] 2018-09-21 00:00:00 Completed [facility] (hep a/hep b) 2018-09-21 00:00:00 Completed [facility] 2018-09-21 00:00:00 Completed [facility] (hep a/hep b) Unknown Completed [facility] Unknown Completed [facility] Influenza Virus Vaccine Quad IM 3+ YRS Unknown Completed [facility] (hep a/hep b) Unknown Completed [facility] Influenza Virus Vaccine Quad .5 mL IM 6+ MO (FLUZONE/FLULAVAL/F LUARIX) Unknown Completed [facility] Pneumococcal 13 Conjugate, PCV13 (Prevnar 13) Unknown Completed [facility] (hep a/hep b) Unknown Completed [facility] Pneumococcal Polysaccharide, PPSV23 (PNEUMOVAX) Unknown Completed [facility] SARS-COV-2 COVID-19 PFIZER VACCINE Unknown Completed [facility] SARS-COV-2 COVID-19 PFIZER VACCINE Unknown Completed [facility] SARS-COV-2 COVID-19 PFIZER VACCINE Unknown Completed [facility] Influenza Virus Vaccine Quad IM, Preserv and ABX Free 6 MO-64 YRS (FLUCELVAX) Unknown Completed [facility] (hep a/hep b) Unknown Completed [facility] Unknown Completed [facility] Influenza Virus Vaccine Quad IM 3+ YRS Unknown Completed [facility] (hep a/hep b) Unknown Completed [facility] Influenza Virus Vaccine Quad .5 mL IM 6+ MO (FLUZONE/FLULAVAL/F LUARIX) Unknown Completed [facility] Pneumococcal 13 Conjugate, PCV13 (Prevnar 13) Unknown Completed [facility] (hep a/hep b) Unknown Completed [facility] Pneumococcal Polysaccharide, PPSV23 (PNEUMOVAX) Unknown Completed [facility] SARS-COV-2 COVID-19 PFIZER VACCINE Unknown Completed [facility] SARS-COV-2 COVID-19 PFIZER VACCINE Unknown Completed [facility] SARS-COV-2 COVID-19 PFIZER VACCINE Unknown Completed [facility] Influenza Virus Vaccine Quad IM, Preserv and ABX Free 6 MO-64 YRS (FLUCELVAX) Unknown Completed [facility] (hep a/hep b) Unknown Completed [facility] TD[facility] Unknown Completed [facility] Influenza Virus Vaccine Quad IM 3+ YRS Unknown Completed [facility] (hep a/hep b) Unknown Completed [facility] Influenza Virus Vaccine Quad .5 mL IM 6+ MO (FLUZONE/FLULAVAL/F LUARIX) Unknown Completed [facility] Pneumococcal 13 Conjugate, PCV13 (Prevnar 13) Unknown Completed [facility] (hep a/hep b) Unknown Completed [facility] Pneumococcal Polysaccharide, PPSV23 (PNEUMOVAX) Unknown Completed [facility] SARS-COV-2 COVID-19 PFIZER VACCINE Unknown Completed [facility] SARS-COV-2 COVID-19 PFIZER VACCINE Unknown Completed [facility] SARS-COV-2 COVID-19 PFIZER VACCINE Unknown Completed [facility] Influenza Virus Vaccine Quad IM, Preserv and ABX Free 6 MO-64 YRS (FLUCELVAX) Unknown Completed [facility] SARS-COV-2 COVID-19 JOHANA-SUCROSE VACCINE 12 YRS+, BIVALENT 0.3ML, IM, (PFIZER ORTIZ TOP) Unknown Completed [facility] Influenza Virus Vaccine Quad IM, Preserv and ABX Free 6 MO-64 YRS (FLUCELVAX) Unknown Completed [facility] (hep a/hep b) Unknown Completed [facility] TD[facility] Unknown Completed [facility] Influenza Virus Vaccine Quad IM 3+ YRS Unknown Completed [facility] (hep a/hep b) Unknown Completed [facility] Influenza Virus Vaccine Quad .5 mL IM 6+ MO (FLUZONE/FLULAVAL/F LUARIX) Unknown Completed [facility] Pneumococcal 13 Conjugate, PCV13 (Prevnar 13) Unknown Completed [facility] (hep a/hep b) Unknown Completed [facility] Pneumococcal Polysaccharide, PPSV23 (PNEUMOVAX) Unknown Completed [facility] SARS-COV-2 COVID-19 PFIZER VACCINE Unknown Completed [facility] SARS-COV-2 COVID-19 PFIZER VACCINE Unknown Completed [facility] SARS-COV-2 COVID-19 PFIZER VACCINE Unknown Completed [facility] Influenza Virus Vaccine Quad IM, Preserv and ABX Free 6 MO-64 YRS (FLUCELVAX) Unknown Completed [facility] SARS-COV-2 COVID-19 JOHANA-SUCROSE VACCINE 12 YRS+, BIVALENT 0.3ML, IM, (PFIZER ORTIZ TOP) Unknown Completed [facility] Influenza Virus Vaccine Quad IM, Preserv and ABX Free 6 MO-64 YRS (FLUCELVAX) Unknown Completed [facility] (hep a/hep b) Unknown Completed [facility] Unknown Completed [facility] Influenza Virus Vaccine Quad IM 3+ YRS Unknown Completed [facility] (hep a/hep b) Unknown Completed [facility] Influenza Virus Vaccine Quad .5 mL IM 6+ MO (FLUZONE/FLULAVAL/F LUARIX) Unknown Completed [facility] Pneumococcal 13 Conjugate, PCV13 (Prevnar 13) Unknown Completed [facility] (hep a/hep b) Unknown Completed [facility] Pneumococcal Polysaccharide, PPSV23 (PNEUMOVAX) Unknown Completed [facility] SARS-COV-2 COVID-19 PFIZER VACCINE Unknown Completed [facility] SARS-COV-2 COVID-19 PFIZER VACCINE Unknown Completed [facility] SARS-COV-2 COVID-19 PFIZER VACCINE Unknown Completed [facility] Influenza Virus Vaccine Quad IM, Preserv and ABX Free 6 MO-64 YRS (FLUCELVAX) Unknown Completed [facility] SARS-COV-2 COVID-19 JOHANA-SUCROSE VACCINE 12 YRS+, BIVALENT 0.3ML, IM, (PFIZER ORTIZ TOP) Unknown Completed [facility] Influenza Virus Vaccine Quad IM, Preserv and ABX Free 6 MO-64 YRS (FLUCELVAX) Unknown Completed [facility] (hep a/hep b) Unknown Completed [facility] Unknown Completed [facility] Influenza Virus Vaccine Quad IM 3+ YRS Unknown Completed [facility] (hep a/hep b) Unknown Completed [facility] Influenza Virus Vaccine Quad .5 mL IM 6+ MO (FLUZONE/FLULAVAL/F LUARIX) Unknown Completed [facility] Pneumococcal 13 Conjugate, PCV13 (Prevnar 13) Unknown Completed [facility] (hep a/hep b) Unknown Completed [facility] Pneumococcal Polysaccharide, PPSV23 (PNEUMOVAX) Unknown Completed [facility] SARS-COV-2 COVID-19 PFIZER VACCINE Unknown Completed [facility] SARS-COV-2 COVID-19 PFIZER VACCINE Unknown Completed [facility] SARS-COV-2 COVID-19 PFIZER VACCINE Unknown Completed [facility] Influenza Virus Vaccine Quad IM, Preserv and ABX Free 6 MO-64 YRS (FLUCELVAX) Unknown Completed [facility] SARS-COV-2 COVID-19 JOHANA-SUCROSE VACCINE 12 YRS+, BIVALENT 0.3ML, IM, (PFIZER ORTIZ TOP) Unknown Completed [facility] Influenza Virus Vaccine Quad IM, Preserv and ABX Free 6 MO-64 YRS (FLUCELVAX) Unknown Completed [facility] (hep a/hep b) Unknown Completed [facility] Unknown Completed [facility] Influenza Virus Vaccine Quad IM 3+ YRS Unknown Completed [facility] (hep a/hep b) Unknown Completed [facility] Influenza Virus Vaccine Quad .5 mL IM 6+ MO (FLUZONE/FLULAVAL/F LUARIX) Unknown Completed [facility] Pneumococcal 13 Conjugate, PCV13 (Prevnar 13) Unknown Completed [facility] (hep a/hep b) Unknown Completed [facility] Pneumococcal Polysaccharide, PPSV23 (PNEUMOVAX) Unknown Completed [facility] SARS-COV-2 COVID-19 PFIZER VACCINE Unknown Completed [facility] SARS-COV-2 COVID-19 PFIZER VACCINE Unknown Completed [facility] SARS-COV-2 COVID-19 PFIZER VACCINE Unknown Completed [facility] Influenza Virus Vaccine Quad IM, Preserv and ABX Free 6 MO-64 YRS (FLUCELVAX) Unknown Completed [facility] SARS-COV-2 COVID-19 JOHANA-SUCROSE VACCINE 12 YRS+, BIVALENT 0.3ML, IM, (PFIZER ORTIZ TOP) Unknown Completed [facility] Influenza Virus Vaccine Quad IM, Preserv and ABX Free 6 MO-64 YRS (FLUCELVAX) Unknown Completed [facility] (hep a/hep b) Unknown Completed [facility] TD[facility] Unknown Completed [facility] Influenza Virus Vaccine Quad IM 3+ YRS Unknown Completed [facility] (hep a/hep b) Unknown Completed [facility] Influenza Virus Vaccine Quad .5 mL IM 6+ MO (FLUZONE/FLULAVAL/F LUARIX) Unknown Completed [facility] Pneumococcal 13 Conjugate, PCV13 (Prevnar 13) Unknown Completed [facility] (hep a/hep b) Unknown Completed [facility] Pneumococcal Polysaccharide, PPSV23 (PNEUMOVAX) Unknown Completed [facility] SARS-COV-2 COVID-19 PFIZER VACCINE Unknown Completed [facility] SARS-COV-2 COVID-19 PFIZER VACCINE Unknown Completed [facility] SARS-COV-2 COVID-19 PFIZER VACCINE Unknown Completed [facility] Influenza Virus Vaccine Quad IM, Preserv and ABX Free 6 MO-64 YRS (FLUCELVAX) Unknown Completed [facility] SARS-COV-2 COVID-19 JOHANA-SUCROSE VACCINE 12 YRS+, BIVALENT 0.3ML, IM, (PFIZER ORTIZ TOP) Unknown Completed [facility] Influenza Virus Vaccine Quad IM, Preserv and ABX Free 6 MO-64 YRS (FLUCELVAX) Unknown Completed [facility] (hep a/hep b) Unknown Completed [facility] TDAP Unknown Completed [facility] Influenza Virus Vaccine Quad IM 3+ YRS Unknown Completed [facility] (hep a/hep b) Unknown Completed [facility] Influenza Virus Vaccine Quad .5 mL IM 6+ MO (FLUZONE/FLULAVAL/F LUARIX) Unknown Completed [facility] Pneumococcal 13 Conjugate, PCV13 (Prevnar 13) Unknown Completed [facility] (hep a/hep b) Unknown Completed [facility] Pneumococcal Polysaccharide, PPSV23 (PNEUMOVAX) Unknown Completed [facility] SARS-COV-2 COVID-19 PFIZER VACCINE Unknown Completed [facility] SARS-COV-2 COVID-19 PFIZER VACCINE Unknown Completed [facility] SARS-COV-2 COVID-19 PFIZER VACCINE Unknown Completed [facility] Influenza Virus Vaccine Quad IM, Preserv and ABX Free 6 MO-64 YRS (FLUCELVAX) Unknown Completed [facility] SARS-COV-2 COVID-19 JOHANA-SUCROSE VACCINE 12 YRS+, BIVALENT 0.3ML, IM, (PFIZER ORTIZ TOP) Unknown Completed [facility] Influenza Virus Vaccine Quad IM, Preserv and ABX Free 6 MO-64 YRS (FLUCELVAX) Unknown Completed [facility] (hep a/hep b) Unknown Completed [facility] TDAP Unknown Completed [facility] Influenza Virus Vaccine Quad IM 3+ YRS Unknown Completed [facility] Twinrix (hep a/hep b) Unknown Completed [facility] Influenza Virus Vaccine Quad .5 mL IM 6+ MO (FLUZONE/FLULAVAL/F LUARIX) Unknown Completed [facility] Pneumococcal 13 Conjugate, PCV13 (Prevnar 13) Unknown Completed [facility] Twinrix (hep a/hep b) Unknown Completed [facility] Pneumococcal Polysaccharide, PPSV23 (PNEUMOVAX) Unknown Completed [facility] SARS-COV-2 COVID-19 PFIZER VACCINE Unknown Completed [facility] SARS-COV-2 COVID-19 PFIZER VACCINE Unknown Completed [facility] SARS-COV-2 COVID-19 PFIZER VACCINE Unknown Completed [facility] Influenza Virus Vaccine Quad IM, Preserv and ABX Free 6 MO-64 YRS (FLUCELVAX) Unknown Completed [facility] SARS-COV-2 COVID-19 JOHANA-SUCROSE VACCINE 12 YRS+, BIVALENT 0.3ML, IM, (PFIZER ORTIZ TOP) Unknown Completed [facility] Influenza Virus Vaccine Quad IM, Preserv and ABX Free 6 MO-64 YRS (FLUCELVAX) Unknown Completed [facility] Twinrix (hep a/hep b) Unknown Completed [facility] TDAP Unknown Completed [facility] Influenza Virus Vaccine Quad IM 3+ YRS Unknown Completed [facility] Twinrix (hep a/hep b) Unknown Completed [facility] Influenza Virus Vaccine Quad .5 mL IM 6+ MO (FLUZONE/FLULAVAL/F LUARIX) Unknown Completed [facility] Pneumococcal 13 Conjugate, PCV13 (Prevnar 13) Unknown Completed [facility] Twinrix (hep a/hep b) Unknown Completed [facility] Pneumococcal Polysaccharide, PPSV23 (PNEUMOVAX) Unknown Completed [facility] SARS-COV-2 COVID-19 PFIZER VACCINE Unknown Completed [facility] SARS-COV-2 COVID-19 PFIZER VACCINE Unknown Completed [facility] SARS-COV-2 COVID-19 PFIZER VACCINE Unknown Completed [facility] Influenza Virus Vaccine Quad IM, Preserv and ABX Free 6 MO-64 YRS (FLUCELVAX) Unknown Completed [facility] SARS-COV-2 COVID-19 JOHANA-SUCROSE VACCINE 12 YRS+, BIVALENT 0.3ML, IM, (PFIZER ORTIZ TOP) Unknown Completed [facility] Influenza Virus Vaccine Quad IM, Preserv and ABX Free 6 MO-64 YRS (FLUCELVAX) Unknown Completed [facility] Twinrix (hep a/hep b) Unknown Completed [facility] TDAP Unknown Completed [facility] Influenza Virus Vaccine Quad IM 3+ YRS Unknown Completed [facility] Twinrix (hep a/hep b) Unknown Completed [facility] Influenza Virus Vaccine Quad .5 mL IM 6+ MO (FLUZONE/FLULAVAL/F LUARIX) Unknown Completed [facility] Pneumococcal 13 Conjugate, PCV13 (Prevnar 13) Unknown Completed [facility] Twinrix (hep a/hep b) Unknown Completed [facility] Pneumococcal Polysaccharide, PPSV23 (PNEUMOVAX) Unknown Completed [facility] SARS-COV-2 COVID-19 PFIZER VACCINE Unknown Completed [facility] SARS-COV-2 COVID-19 PFIZER VACCINE Unknown Completed [facility] SARS-COV-2 COVID-19 PFIZER VACCINE Unknown Completed [facility] Influenza Virus Vaccine Quad IM, Preserv and ABX Free 6 MO-64 YRS (FLUCELVAX) Unknown Completed [facility] SARS-COV-2 COVID-19 JOHANA-SUCROSE VACCINE 12 YRS+, BIVALENT 0.3ML, IM, (PFIZER ORTIZ TOP) Unknown Completed [facility] Influenza Virus Vaccine Quad IM, Preserv and ABX Free 6 MO-64 YRS (FLUCELVAX) Unknown Completed [facility] Twinrix (hep a/hep b) Unknown Completed [facility] TDAP Unknown Completed [facility] Influenza Virus Vaccine Quad IM 3+ YRS Unknown Completed [facility] Twinrix (hep a/hep b) Unknown Completed [facility] Influenza Virus Vaccine Quad .5 mL IM 6+ MO (FLUZONE/FLULAVAL/F LUARIX) Unknown Completed [facility] Pneumococcal 13 Conjugate, PCV13 (Prevnar 13) Unknown Completed [facility] Twinrix (hep a/hep b) Unknown Completed [facility] Pneumococcal Polysaccharide, PPSV23 (PNEUMOVAX) Unknown Completed [facility] SARS-COV-2 COVID-19 PFIZER VACCINE Unknown Completed [facility] SARS-COV-2 COVID-19 PFIZER VACCINE Unknown Completed [facility] SARS-COV-2 COVID-19 PFIZER VACCINE Unknown Completed [facility] Influenza Virus Vaccine Quad IM, Preserv and ABX Free 6 MO-64 YRS (FLUCELVAX) Unknown Completed [facility] SARS-COV-2 COVID-19 JOHANA-SUCROSE VACCINE 12 YRS+, BIVALENT 0.3ML, IM, (PFIZER ORTIZ TOP) Unknown Completed [facility] Influenza Virus Vaccine Quad IM, Preserv and ABX Free 6 MO-64 YRS (FLUCELVAX) Unknown Completed [facility] Twinrix (hep a/hep b) Unknown Completed [facility] TDAP Unknown Completed [facility] Influenza Virus Vaccine Quad IM 3+ YRS Unknown Completed [facility] Twinrix (hep a/hep b) Unknown Completed [facility] Influenza Virus Vaccine Quad .5 mL IM 6+ MO (FLUZONE/FLULAVAL/F LUARIX) Unknown Completed [facility] Pneumococcal 13 Conjugate, PCV13 (Prevnar 13) Unknown Completed [facility] Twinrix (hep a/hep b) Unknown Completed [facility] Pneumococcal Polysaccharide, PPSV23 (PNEUMOVAX) Unknown Completed [facility] SARS-COV-2 COVID-19 PFIZER VACCINE Unknown Completed [facility] SARS-COV-2 COVID-19 PFIZER VACCINE Unknown Completed [facility] SARS-COV-2 COVID-19 PFIZER VACCINE Unknown Completed [facility] Influenza Virus Vaccine Quad IM, Preserv and ABX Free 6 MO-64 YRS (FLUCELVAX) Unknown Completed [facility] SARS-COV-2 COVID-19 JOHANA-SUCROSE VACCINE 12 YRS+, BIVALENT 0.3ML, IM, (PFIZER ORTIZ TOP) Unknown Completed [facility] Influenza Virus Vaccine Quad IM, Preserv and ABX Free 6 MO-64 YRS (FLUCELVAX) Unknown Completed [facility] Twinrix (hep a/hep b) Unknown Completed [facility] TDAP Unknown Completed [facility] Influenza Virus Vaccine Quad IM 3+ YRS Unknown Completed [facility] Twinrix (hep a/hep b) Unknown Completed [facility] Influenza Virus Vaccine Quad .5 mL IM 6+ MO (FLUZONE/FLULAVAL/F LUARIX) Unknown Completed [facility] Pneumococcal 13 Conjugate, PCV13 (Prevnar 13) Unknown Completed [facility] Twinrix (hep a/hep b) Unknown Completed [facility] Pneumococcal Polysaccharide, PPSV23 (PNEUMOVAX) Unknown Completed [facility] SARS-COV-2 COVID-19 PFIZER VACCINE Unknown Completed [facility] SARS-COV-2 COVID-19 PFIZER VACCINE Unknown Completed [facility] SARS-COV-2 COVID-19 PFIZER VACCINE Unknown Completed [facility] Influenza Virus Vaccine Quad IM, Preserv and ABX Free 6 MO-64 YRS (FLUCELVAX) Unknown Completed [facility] SARS-COV-2 COVID-19 JOHANA-SUCROSE VACCINE 12 YRS+, BIVALENT 0.3ML, IM, (PFIZER ORTIZ TOP) Unknown Completed [facility] Influenza Virus Vaccine Quad IM, Preserv and ABX Free 6 MO-64 YRS (FLUCELVAX) Unknown Completed [facility] Twinrix (hep a/hep b) Unknown Completed [facility] TDAP Unknown Completed [facility] Influenza Virus Vaccine Quad IM 3+ YRS Unknown Completed [facility] Twinrix (hep a/hep b) Unknown Completed [facility] Influenza Virus Vaccine Quad .5 mL IM 6+ MO (FLUZONE/FLULAVAL/F LUARIX) Unknown Completed [facility] Pneumococcal 13 Conjugate, PCV13 (Prevnar 13) Unknown Completed [facility] Twinrix (hep a/hep b) Unknown Completed [facility] Pneumococcal Polysaccharide, PPSV23 (PNEUMOVAX) Unknown Completed [facility] SARS-COV-2 COVID-19 PFIZER VACCINE Unknown Completed [facility] SARS-COV-2 COVID-19 PFIZER VACCINE Unknown Completed [facility] SARS-COV-2 COVID-19 PFIZER VACCINE Unknown Completed [facility] Influenza Virus Vaccine Quad IM, Preserv and ABX Free 6 MO-64 YRS (FLUCELVAX) Unknown Completed [facility] SARS-COV-2 COVID-19 JOHANA-SUCROSE VACCINE 12 YRS+, BIVALENT 0.3ML, IM, (PFIZER ORTIZ TOP) Unknown Completed [facility] Influenza Virus Vaccine Quad IM, Preserv and ABX Free 6 MO-64 YRS (FLUCELVAX) Unknown Completed [facility] Twinrix (hep a/hep b) Unknown Completed [facility] TDAP Unknown Completed [facility] Influenza Virus Vaccine Quad IM 3+ YRS Unknown Completed [facility] Twinrix (hep a/hep b) Unknown Completed [facility] Influenza Virus Vaccine Quad .5 mL IM 6+ MO (FLUZONE/FLULAVAL/F LUARIX) Unknown Completed [facility] Pneumococcal 13 Conjugate, PCV13 (Prevnar 13) Unknown Completed [facility] Twinrix (hep a/hep b) Unknown Completed [facility] Pneumococcal Polysaccharide, PPSV23 (PNEUMOVAX) Unknown Completed [facility] SARS-COV-2 COVID-19 PFIZER VACCINE Unknown Completed [facility] SARS-COV-2 COVID-19 PFIZER VACCINE Unknown Completed [facility] SARS-COV-2 COVID-19 PFIZER VACCINE Unknown Completed [facility] Influenza Virus Vaccine Quad IM, Preserv and ABX Free 6 MO-64 YRS (FLUCELVAX) Unknown Completed [facility] SARS-COV-2 COVID-19 JOHANA-SUCROSE VACCINE 12 YRS+, BIVALENT 0.3ML, IM, (PFIZER ORTIZ TOP) Unknown Completed [facility] Influenza Virus Vaccine Quad IM, Preserv and ABX Free 6 MO-64 YRS (FLUCELVAX) Unknown Completed [facility] Twinrix (hep a/hep b) Unknown Completed [facility] TDAP Unknown Completed [facility] Influenza Virus Vaccine Quad IM 3+ YRS Unknown Completed [facility] Twinrix (hep a/hep b) Unknown Completed [facility] Influenza Virus Vaccine Quad .5 mL IM 6+ MO (FLUZONE/FLULAVAL/F LUARIX) Unknown Completed [facility] Pneumococcal 13 Conjugate, PCV13 (Prevnar 13) Unknown Completed [facility] Twinrix (hep a/hep b) Unknown Completed [facility] Pneumococcal Polysaccharide, PPSV23 (PNEUMOVAX) Unknown Completed [facility] SARS-COV-2 COVID-19 PFIZER VACCINE Unknown Completed [facility] SARS-COV-2 COVID-19 PFIZER VACCINE Unknown Completed [facility] SARS-COV-2 COVID-19 PFIZER VACCINE Unknown Completed [facility] Influenza Virus Vaccine Quad IM, Preserv and ABX Free 6 MO-64 YRS (FLUCELVAX) Unknown Completed [facility] SARS-COV-2 COVID-19 JOHANA-SUCROSE VACCINE 12 YRS+, BIVALENT 0.3ML, IM, (PFIZER ORTIZ TOP) Unknown Completed [facility] Influenza Virus Vaccine Quad IM, Preserv and ABX Free 6 MO-64 YRS (FLUCELVAX) Unknown Completed [facility] Twinrix (hep a/hep b) Unknown Completed [facility] TDAP Unknown Completed [facility] Influenza Virus Vaccine Quad IM 3+ YRS Unknown Completed [facility] Twinrix (hep a/hep b) Unknown Completed [facility] Influenza Virus Vaccine Quad .5 mL IM 6+ MO (FLUZONE/FLULAVAL/F LUARIX) Unknown Completed [facility] Pneumococcal 13 Conjugate, PCV13 (Prevnar 13) Unknown Completed [facility] Twinrix (hep a/hep b) Unknown Completed [facility] Pneumococcal Polysaccharide, PPSV23 (PNEUMOVAX) Unknown Completed [facility] SARS-COV-2 COVID-19 PFIZER VACCINE Unknown Completed [facility] SARS-COV-2 COVID-19 PFIZER VACCINE Unknown Completed [facility] SARS-COV-2 COVID-19 PFIZER VACCINE Unknown Completed [facility] Influenza Virus Vaccine Quad IM, Preserv and ABX Free 6 MO-64 YRS (FLUCELVAX) Unknown Completed [facility] SARS-COV-2 COVID-19 JOHANA-SUCROSE VACCINE 12 YRS+, BIVALENT 0.3ML, IM, (PFIZER ORTIZ TOP) Unknown Completed [facility] Influenza Virus Vaccine Quad IM, Preserv and ABX Free 6 MO-64 YRS (FLUCELVAX) Unknown Completed [facility] Twinrix (hep a/hep b) Unknown Completed [facility] TDAP Unknown Completed [facility] Influenza Virus Vaccine Quad IM 3+ YRS Unknown Completed [facility] Twinrix (hep a/hep b) Unknown Completed [facility] Influenza Virus Vaccine Quad .5 mL IM 6+ MO (FLUZONE/FLULAVAL/F LUARIX) Unknown Completed [facility] Pneumococcal 13 Conjugate, PCV13 (Prevnar 13) Unknown Completed [facility] Twinrix (hep a/hep b) Unknown Completed [facility] Pneumococcal Polysaccharide, PPSV23 (PNEUMOVAX) Unknown Completed [facility] SARS-COV-2 COVID-19 PFIZER VACCINE Unknown Completed [facility] SARS-COV-2 COVID-19 PFIZER VACCINE Unknown Completed [facility] SARS-COV-2 COVID-19 PFIZER VACCINE Unknown Completed [facility] Influenza Virus Vaccine Quad IM, Preserv and ABX Free 6 MO-64 YRS (FLUCELVAX) Unknown Completed [facility] SARS-COV-2 COVID-19 JOHANA-SUCROSE VACCINE 12 YRS+, BIVALENT 0.3ML, IM, (PFIZER ORTIZ TOP) Unknown Completed [facility] Influenza Virus Vaccine Quad IM, Preserv and ABX Free 6 MO-64 YRS (FLUCELVAX) Unknown Completed [facility] Twinrix (hep a/hep b) Unknown Completed [facility] TDAP Unknown Completed [facility] Influenza Virus Vaccine Quad IM 3+ YRS Unknown Completed [facility] Twinrix (hep a/hep b) Unknown Completed [facility] Influenza Virus Vaccine Quad .5 mL IM 6+ MO (FLUZONE/FLULAVAL/F LUARIX) Unknown Completed [facility] Pneumococcal 13 Conjugate, PCV13 (Prevnar 13) Unknown Completed [facility] Twinrix (hep a/hep b) Unknown Completed [facility] Pneumococcal Polysaccharide, PPSV23 (PNEUMOVAX) Unknown Completed [facility] SARS-COV-2 COVID-19 PFIZER VACCINE Unknown Completed [facility] SARS-COV-2 COVID-19 PFIZER VACCINE Unknown Completed [facility] SARS-COV-2 COVID-19 PFIZER VACCINE Unknown Completed [facility] Influenza Virus Vaccine Quad IM, Preserv and ABX Free 6 MO-64 YRS (FLUCELVAX) Unknown Completed [facility] SARS-COV-2 COVID-19 JOHANA-SUCROSE VACCINE 12 YRS+, BIVALENT 0.3ML, IM, (PFIZER ORTIZ TOP) Unknown Completed [facility] Influenza Virus Vaccine Quad IM, Preserv and ABX Free 6 MO-64 YRS (FLUCELVAX) Unknown Completed [facility] Twinrix (hep a/hep b) Unknown Completed [facility] TDAP Unknown Completed [facility] Influenza Virus Vaccine Quad IM 3+ YRS Unknown Completed [facility] Twinrix (hep a/hep b) Unknown Completed [facility] Influenza Virus Vaccine Quad .5 mL IM 6+ MO (FLUZONE/FLULAVAL/F LUARIX) Unknown Completed [facility] Pneumococcal 13 Conjugate, PCV13 (Prevnar 13) Unknown Completed [facility] Twinrix (hep a/hep b) Unknown Completed [facility] Pneumococcal Polysaccharide, PPSV23 (PNEUMOVAX) Unknown Completed [facility] SARS-COV-2 COVID-19 PFIZER VACCINE Unknown Completed [facility] SARS-COV-2 COVID-19 PFIZER VACCINE Unknown Completed [facility] SARS-COV-2 COVID-19 PFIZER VACCINE Unknown Completed [facility] Influenza Virus Vaccine Quad IM, Preserv and ABX Free 6 MO-64 YRS (FLUCELVAX) Unknown Completed [facility] SARS-COV-2 COVID-19 JOHANA-SUCROSE VACCINE 12 YRS+, BIVALENT 0.3ML, IM, (PFIZER ORTIZ TOP) Unknown Completed [facility] Influenza Virus Vaccine Quad IM, Preserv and ABX Free 6 MO-64 YRS (FLUCELVAX) Unknown Completed [facility] Twinrix (hep a/hep b) Unknown Completed [facility] TDAP Unknown Completed [facility] Influenza Virus Vaccine Quad IM 3+ YRS Unknown Completed [facility] Twinrix (hep a/hep b) Unknown Completed [facility] Influenza Virus Vaccine Quad .5 mL IM 6+ MO (FLUZONE/FLULAVAL/F LUARIX) Unknown Completed [facility] Pneumococcal 13 Conjugate, PCV13 (Prevnar 13) Unknown Completed [facility] Twinrix (hep a/hep b) Unknown Completed [facility] Pneumococcal Polysaccharide, PPSV23 (PNEUMOVAX) Unknown Completed [facility] SARS-COV-2 COVID-19 PFIZER VACCINE Unknown Completed [facility] SARS-COV-2 COVID-19 PFIZER VACCINE Unknown Completed [facility] SARS-COV-2 COVID-19 PFIZER VACCINE Unknown Completed [facility] Influenza Virus Vaccine Quad IM, Preserv and ABX Free 6 MO-64 YRS (FLUCELVAX) Unknown Completed [facility] SARS-COV-2 COVID-19 JOHANA-SUCROSE VACCINE 12 YRS+, BIVALENT 0.3ML, IM, (PFIZER ORTIZ TOP) Unknown Completed [facility] Influenza Virus Vaccine Quad IM, Preserv and ABX Free 6 MO-64 YRS (FLUCELVAX) Unknown Completed [facility] Twinrix (hep a/hep b) Unknown Completed [facility] TDAP Unknown Completed [facility] Influenza Virus Vaccine Quad IM 3+ YRS Unknown Completed [facility] Twinrix (hep a/hep b) Unknown Completed [facility] Influenza Virus Vaccine Quad .5 mL IM 6+ MO (FLUZONE/FLULAVAL/F LUARIX) Unknown Completed [facility] Pneumococcal 13 Conjugate, PCV13 (Prevnar 13) Unknown Completed [facility] Twinrix (hep a/hep b) Unknown Completed [facility] Pneumococcal Polysaccharide, PPSV23 (PNEUMOVAX) Unknown Completed [facility] SARS-COV-2 COVID-19 PFIZER VACCINE Unknown Completed [facility] SARS-COV-2 COVID-19 PFIZER VACCINE Unknown Completed [facility] SARS-COV-2 COVID-19 PFIZER VACCINE Unknown Completed [facility] Influenza Virus Vaccine Quad IM, Preserv and ABX Free 6 MO-64 YRS (FLUCELVAX) Unknown Completed [facility] SARS-COV-2 COVID-19 JOHANA-SUCROSE VACCINE 12 YRS+, BIVALENT 0.3ML, IM, (PFIZER ORTIZ TOP) Unknown Completed [facility] Influenza Virus Vaccine Quad IM, Preserv and ABX Free 6 MO-64 YRS (FLUCELVAX) Unknown Completed [facility] Twinrix (hep a/hep b) Unknown Completed [facility] TDAP Unknown Completed [facility] Influenza Virus Vaccine Quad IM 3+ YRS Unknown Completed [facility] Twinrix (hep a/hep b) Unknown Completed [facility] Influenza Virus Vaccine Quad .5 mL IM 6+ MO (FLUZONE/FLULAVAL/F LUARIX) Unknown Completed [facility] Pneumococcal 13 Conjugate, PCV13 (Prevnar 13) Unknown Completed [facility] Twinrix (hep a/hep b) Unknown Completed [facility] Pneumococcal Polysaccharide, PPSV23 (PNEUMOVAX) Unknown Completed [facility] SARS-COV-2 COVID-19 PFIZER VACCINE Unknown Completed [facility] SARS-COV-2 COVID-19 PFIZER VACCINE Unknown Completed [facility] SARS-COV-2 COVID-19 PFIZER VACCINE Unknown Completed [facility] Influenza Virus Vaccine Quad IM, Preserv and ABX Free 6 MO-64 YRS (FLUCELVAX) Unknown Completed [facility] SARS-COV-2 COVID-19 JOHANA-SUCROSE VACCINE 12 YRS+, BIVALENT 0.3ML, IM, (PFIZER ORTIZ TOP) Unknown Completed [facility] Influenza Virus Vaccine Quad IM, Preserv and ABX Free 6 MO-64 YRS (FLUCELVAX) Unknown Completed [facility] Twinrix (hep a/hep b) Unknown Completed [facility] TDAP Unknown Completed [facility] Influenza Virus Vaccine Quad IM 3+ YRS Unknown Completed [facility] Twinrix (hep a/hep b) Unknown Completed [facility] Influenza Virus Vaccine Quad .5 mL IM 6+ MO (FLUZONE/FLULAVAL/F LUARIX) Unknown Completed [facility] Pneumococcal 13 Conjugate, PCV13 (Prevnar 13) Unknown Completed [facility] Twinrix (hep a/hep b) Unknown Completed [facility] Pneumococcal Polysaccharide, PPSV23 (PNEUMOVAX) Unknown Completed [facility] SARS-COV-2 COVID-19 PFIZER VACCINE Unknown Completed [facility] SARS-COV-2 COVID-19 PFIZER VACCINE Unknown Completed [facility] SARS-COV-2 COVID-19 PFIZER VACCINE Unknown Completed [facility] Influenza Virus Vaccine Quad IM, Preserv and ABX Free 6 MO-64 YRS (FLUCELVAX) Unknown Completed [facility] SARS-COV-2 COVID-19 JOHANA-SUCROSE VACCINE 12 YRS+, BIVALENT 0.3ML, IM, (PFIZER ORTIZ TOP) Unknown Completed [facility] Influenza Virus Vaccine Quad IM, Preserv and ABX Free 6 MO-64 YRS (FLUCELVAX) Unknown Completed [facility] Twinrix (hep a/hep b) Unknown Completed [facility] TDAP Unknown Completed [facility] Influenza Virus Vaccine Quad IM 3+ YRS Unknown Completed [facility] Twinrix (hep a/hep b) Unknown Completed [facility] Influenza Virus Vaccine Quad .5 mL IM 6+ MO (FLUZONE/FLULAVAL/F LUARIX) Unknown Completed [facility] Pneumococcal 13 Conjugate, PCV13 (Prevnar 13) Unknown Completed [facility] Twinrix (hep a/hep b) Unknown Completed [facility] Pneumococcal Polysaccharide, PPSV23 (PNEUMOVAX) Unknown Completed [facility] SARS-COV-2 COVID-19 PFIZER VACCINE Unknown Completed [facility] SARS-COV-2 COVID-19 PFIZER VACCINE Unknown Completed [facility] SARS-COV-2 COVID-19 PFIZER VACCINE Unknown Completed [facility] Influenza Virus Vaccine Quad IM, Preserv and ABX Free 6 MO-64 YRS (FLUCELVAX) Unknown Completed [facility] SARS-COV-2 COVID-19 JOHANA-SUCROSE VACCINE 12 YRS+, BIVALENT 0.3ML, IM, (PFIZER ORTIZ TOP) Unknown Completed [facility] Influenza Virus Vaccine Quad IM, Preserv and ABX Free 6 MO-64 YRS (FLUCELVAX) Unknown Completed [facility] Twinrix (hep a/hep b) Unknown Completed [facility] TDAP Unknown Completed [facility] Influenza Virus Vaccine Quad IM 3+ YRS Unknown Completed [facility] Twinrix (hep a/hep b) Unknown Completed [facility] Influenza Virus Vaccine Quad .5 mL IM 6+ MO (FLUZONE/FLULAVAL/F LUARIX) Unknown Completed [facility] Pneumococcal 13 Conjugate, PCV13 (Prevnar 13) Unknown Completed [facility] Twinrix (hep a/hep b) Unknown Completed [facility] Pneumococcal Polysaccharide, PPSV23 (PNEUMOVAX) Unknown Completed [facility] SARS-COV-2 COVID-19 PFIZER VACCINE Unknown Completed [facility] SARS-COV-2 COVID-19 PFIZER VACCINE Unknown Completed [facility] SARS-COV-2 COVID-19 PFIZER VACCINE Unknown Completed [facility] Influenza Virus Vaccine Quad IM, Preserv and ABX Free 6 MO-64 YRS (FLUCELVAX) Unknown Completed [facility] SARS-COV-2 COVID-19 JOHANA-SUCROSE VACCINE 12 YRS+, BIVALENT 0.3ML, IM, (PFIZER ORTIZ TOP) Unknown Completed [facility] Influenza Virus Vaccine Quad IM, Preserv and ABX Free 6 MO-64 YRS (FLUCELVAX) Unknown Completed [facility] Twinrix (hep a/hep b) Unknown Completed [facility] TDAP Unknown Completed [facility] Influenza Virus Vaccine Quad IM 3+ YRS Unknown Completed [facility] Twinrix (hep a/hep b) Unknown Completed [facility] Influenza Virus Vaccine Quad .5 mL IM 6+ MO (FLUZONE/FLULAVAL/F LUARIX) Unknown Completed [facility] Pneumococcal 13 Conjugate, PCV13 (Prevnar 13) Unknown Completed [facility] Twinrix (hep a/hep b) Unknown Completed [facility] Pneumococcal Polysaccharide, PPSV23 (PNEUMOVAX) Unknown Completed [facility] SARS-COV-2 COVID-19 PFIZER VACCINE Unknown Completed [facility] SARS-COV-2 COVID-19 PFIZER VACCINE Unknown Completed [facility] SARS-COV-2 COVID-19 PFIZER VACCINE Unknown Completed [facility] Influenza Virus Vaccine Quad IM, Preserv and ABX Free 6 MO-64 YRS (FLUCELVAX) Unknown Completed [facility] SARS-COV-2 COVID-19 JOHANA-SUCROSE VACCINE 12 YRS+, BIVALENT 0.3ML, IM, (PFIZER ORTIZ TOP) Unknown Completed [facility] Influenza Virus Vaccine Quad IM, Preserv and ABX Free 6 MO-64 YRS (FLUCELVAX) Unknown Completed [facility] Twinrix (hep a/hep b) Unknown Completed [facility] TDAP Unknown Completed [facility] Influenza Virus Vaccine Quad IM 3+ YRS Unknown Completed [facility] Twinrix (hep a/hep b) Unknown Completed [facility] Influenza Virus Vaccine Quad .5 mL IM 6+ MO (FLUZONE/FLULAVAL/F LUARIX) Unknown Completed [facility] Pneumococcal 13 Conjugate, PCV13 (Prevnar 13) Unknown Completed [facility] Twinrix (hep a/hep b) Unknown Completed [facility] Pneumococcal Polysaccharide, PPSV23 (PNEUMOVAX) Unknown Completed [facility] SARS-COV-2 COVID-19 PFIZER VACCINE Unknown Completed [facility] SARS-COV-2 COVID-19 PFIZER VACCINE Unknown Completed [facility] SARS-COV-2 COVID-19 PFIZER VACCINE Unknown Completed [facility] Influenza Virus Vaccine Quad IM, Preserv and ABX Free 6 MO-64 YRS (FLUCELVAX) Unknown Completed [facility] SARS-COV-2 COVID-19 JOHANA-SUCROSE VACCINE 12 YRS+, BIVALENT 0.3ML, IM, (PFIZER ORTIZ TOP) Unknown Completed [facility] Influenza Virus Vaccine Quad IM, Preserv and ABX Free 6 MO-64 YRS (FLUCELVAX) Unknown Completed [facility] Twinrix (hep a/hep b) Unknown Completed [facility] TDAP Unknown Completed [facility] Influenza Virus Vaccine Quad IM 3+ YRS Unknown Completed [facility] Twinrix (hep a/hep b) Unknown Completed [facility] Influenza Virus Vaccine Quad .5 mL IM 6+ MO (FLUZONE/FLULAVAL/F LUARIX) Unknown Completed [facility] Pneumococcal 13 Conjugate, PCV13 (Prevnar 13) Unknown Completed [facility] Twinrix (hep a/hep b) Unknown Completed [facility] Pneumococcal Polysaccharide, PPSV23 (PNEUMOVAX) Unknown Completed [facility] SARS-COV-2 COVID-19 PFIZER VACCINE Unknown Completed [facility] SARS-COV-2 COVID-19 PFIZER VACCINE Unknown Completed [facility] SARS-COV-2 COVID-19 PFIZER VACCINE Unknown Completed [facility] Influenza Virus Vaccine Quad IM, Preserv and ABX Free 6 MO-64 YRS (FLUCELVAX) Unknown Completed [facility] SARS-COV-2 COVID-19 JOHANA-SUCROSE VACCINE 12 YRS+, BIVALENT 0.3ML, IM, (PFIZER ORTIZ TOP) Unknown Completed [facility] Influenza Virus Vaccine Quad IM, Preserv and ABX Free 6 MO-64 YRS (FLUCELVAX) Unknown Completed [facility] Twinrix (hep a/hep b) Unknown Completed [facility] TDAP Unknown Completed [facility] Influenza Virus Vaccine Quad IM 3+ YRS Unknown Completed [facility] Twinrix (hep a/hep b) Unknown Completed [facility] Influenza Virus Vaccine Quad .5 mL IM 6+ MO (FLUZONE/FLULAVAL/F LUARIX) Unknown Completed [facility] Pneumococcal 13 Conjugate, PCV13 (Prevnar 13) Unknown Completed [facility] Twinrix (hep a/hep b) Unknown Completed [facility] Pneumococcal Polysaccharide, PPSV23 (PNEUMOVAX) Unknown Completed [facility] SARS-COV-2 COVID-19 PFIZER VACCINE Unknown Completed [facility] SARS-COV-2 COVID-19 PFIZER VACCINE Unknown Completed [facility] SARS-COV-2 COVID-19 PFIZER VACCINE Unknown Completed [facility] Influenza Virus Vaccine Quad IM, Preserv and ABX Free 6 MO-64 YRS (FLUCELVAX) Unknown Completed [facility] SARS-COV-2 COVID-19 JOHANA-SUCROSE VACCINE 12 YRS+, BIVALENT 0.3ML, IM, (PFIZER ORTIZ TOP) Unknown Completed [facility] Influenza Virus Vaccine Quad IM, Preserv and ABX Free 6 MO-64 YRS (FLUCELVAX) Unknown Completed [facility] Twinrix (hep a/hep b) Unknown Completed [facility] TDAP Unknown Completed [facility] Influenza Virus Vaccine Quad IM 3+ YRS Unknown Completed [facility] Twinrix (hep a/hep b) Unknown Completed [facility] Influenza Virus Vaccine Quad .5 mL IM 6+ MO (FLUZONE/FLULAVAL/F LUARIX) Unknown Completed [facility] Pneumococcal 13 Conjugate, PCV13 (Prevnar 13) Unknown Completed [facility] Twinrix (hep a/hep b) Unknown Completed [facility] Pneumococcal Polysaccharide, PPSV23 (PNEUMOVAX) Unknown Completed [facility] SARS-COV-2 COVID-19 PFIZER VACCINE Unknown Completed [facility] SARS-COV-2 COVID-19 PFIZER VACCINE Unknown Completed [facility] SARS-COV-2 COVID-19 PFIZER VACCINE Unknown Completed [facility] Influenza Virus Vaccine Quad IM, Preserv and ABX Free 6 MO-64 YRS (FLUCELVAX) Unknown Completed [facility] SARS-COV-2 COVID-19 JOHANA-SUCROSE VACCINE 12 YRS+, BIVALENT 0.3ML, IM, (PFIZER ORTIZ TOP) Unknown Completed [facility] Influenza Virus Vaccine Quad IM, Preserv and ABX Free 6 MO-64 YRS (FLUCELVAX) Unknown Completed [facility] Twinrix (hep a/hep b) Unknown Completed [facility] TDAP Unknown Completed [facility] Influenza Virus Vaccine Quad IM 3+ YRS Unknown Completed [facility] Twinrix (hep a/hep b) Unknown Completed [facility] Influenza Virus Vaccine Quad .5 mL IM 6+ MO (FLUZONE/FLULAVAL/F LUARIX) Unknown Completed [facility] Pneumococcal 13 Conjugate, PCV13 (Prevnar 13) Unknown Completed [facility] Twinrix (hep a/hep b) Unknown Completed [facility] Pneumococcal Polysaccharide, PPSV23 (PNEUMOVAX) Unknown Completed [facility] SARS-COV-2 COVID-19 PFIZER VACCINE Unknown Completed [facility] SARS-COV-2 COVID-19 PFIZER VACCINE Unknown Completed [facility] SARS-COV-2 COVID-19 PFIZER VACCINE Unknown Completed [facility] Influenza Virus Vaccine Quad IM, Preserv and ABX Free 6 MO-64 YRS (FLUCELVAX) Unknown Completed [facility] SARS-COV-2 COVID-19 JOHANA-SUCROSE VACCINE 12 YRS+, BIVALENT 0.3ML, IM, (PFIZER ORTIZ TOP) Unknown Completed [facility] Influenza Virus Vaccine Quad IM, Preserv and ABX Free 6 MO-64 YRS (FLUCELVAX) Unknown Completed [facility] Twinrix (hep a/hep b) Unknown Completed [facility] TDAP Unknown Completed [facility] Influenza Virus Vaccine Quad IM 3+ YRS Unknown Completed [facility] Twinrix (hep a/hep b) Unknown Completed [facility] Influenza Virus Vaccine Quad .5 mL IM 6+ MO (FLUZONE/FLULAVAL/F LUARIX) Unknown Completed [facility] Pneumococcal 13 Conjugate, PCV13 (Prevnar 13) Unknown Completed [facility] Twinrix (hep a/hep b) Unknown Completed [facility] Pneumococcal Polysaccharide, PPSV23 (PNEUMOVAX) Unknown Completed [facility] SARS-COV-2 COVID-19 PFIZER VACCINE Unknown Completed [facility] SARS-COV-2 COVID-19 PFIZER VACCINE Unknown Completed [facility] SARS-COV-2 COVID-19 PFIZER VACCINE Unknown Completed [facility] Influenza Virus Vaccine Quad IM, Preserv and ABX Free 6 MO-64 YRS (FLUCELVAX) Unknown Completed [facility] SARS-COV-2 COVID-19 JOHANA-SUCROSE VACCINE 12 YRS+, BIVALENT 0.3ML, IM, (PFIZER ORTIZ TOP) Unknown Completed [facility] Influenza Virus Vaccine Quad IM, Preserv and ABX Free 6 MO-64 YRS (FLUCELVAX) Unknown Completed [facility] Twinrix (hep a/hep b) Unknown Completed [facility] TDAP Unknown Completed [facility] Influenza Virus Vaccine Quad IM 3+ YRS Unknown Completed [facility] Twinrix (hep a/hep b) Unknown Completed [facility] Influenza Virus Vaccine Quad .5 mL IM 6+ MO (FLUZONE/FLULAVAL/F LUARIX) Unknown Completed [facility] Pneumococcal 13 Conjugate, PCV13 (Prevnar 13) Unknown Completed [facility] Twinrix (hep a/hep b) Unknown Completed [facility] Pneumococcal Polysaccharide, PPSV23 (PNEUMOVAX) Unknown Completed [facility] SARS-COV-2 COVID-19 PFIZER VACCINE Unknown Completed [facility] SARS-COV-2 COVID-19 PFIZER VACCINE Unknown Completed [facility] SARS-COV-2 COVID-19 PFIZER VACCINE Unknown Completed [facility] Influenza Virus Vaccine Quad IM, Preserv and ABX Free 6 MO-64 YRS (FLUCELVAX) Unknown Completed [facility] SARS-COV-2 COVID-19 JOHANA-SUCROSE VACCINE 12 YRS+, BIVALENT 0.3ML, IM, (PFIZER ORTIZ TOP) Unknown Completed [facility] Influenza Virus Vaccine Quad IM, Preserv and ABX Free 6 MO-64 YRS (FLUCELVAX) Unknown Completed [facility] Twinrix (hep a/hep b) Unknown Completed [facility] TDAP Unknown Completed [facility] Influenza Virus Vaccine Quad IM 3+ YRS Unknown Completed [facility] Twinrix (hep a/hep b) Unknown Completed [facility] Influenza Virus Vaccine Quad .5 mL IM 6+ MO (FLUZONE/FLULAVAL/F LUARIX) Unknown Completed [facility] Pneumococcal 13 Conjugate, PCV13 (Prevnar 13) Unknown Completed [facility] Twinrix (hep a/hep b) Unknown Completed [facility] Pneumococcal Polysaccharide, PPSV23 (PNEUMOVAX) Unknown Completed [facility] SARS-COV-2 COVID-19 PFIZER VACCINE Unknown Completed [facility] SARS-COV-2 COVID-19 PFIZER VACCINE Unknown Completed [facility] SARS-COV-2 COVID-19 PFIZER VACCINE Unknown Completed [facility] Influenza Virus Vaccine Quad IM, Preserv and ABX Free 6 MO-64 YRS (FLUCELVAX) Unknown Completed [facility] SARS-COV-2 COVID-19 JOHANA-SUCROSE VACCINE 12 YRS+, BIVALENT 0.3ML, IM, (PFIZER ORTIZ TOP) Unknown Completed [facility] Influenza Virus Vaccine Quad IM, Preserv and ABX Free 6 MO-64 YRS (FLUCELVAX) Unknown Completed [facility] Twinrix (hep a/hep b) Unknown Completed [facility] TDAP Unknown Completed [facility] Influenza Virus Vaccine Quad IM 3+ YRS Unknown Completed [facility] Twinrix (hep a/hep b) Unknown Completed [facility] Influenza Virus Vaccine Quad .5 mL IM 6+ MO (FLUZONE/FLULAVAL/F LUARIX) Unknown Completed [facility] Pneumococcal 13 Conjugate, PCV13 (Prevnar 13) Unknown Completed [facility] Twinrix (hep a/hep b) Unknown Completed [facility] Pneumococcal Polysaccharide, PPSV23 (PNEUMOVAX) Unknown Completed [facility] SARS-COV-2 COVID-19 PFIZER VACCINE Unknown Completed [facility] SARS-COV-2 COVID-19 PFIZER VACCINE Unknown Completed [facility] SARS-COV-2 COVID-19 PFIZER VACCINE Unknown Completed [facility] Influenza Virus Vaccine Quad IM, Preserv and ABX Free 6 MO-64 YRS (FLUCELVAX) Unknown Completed [facility] SARS-COV-2 COVID-19 JOHANA-SUCROSE VACCINE 12 YRS+, BIVALENT 0.3ML, IM, (PFIZER ORTIZ TOP) Unknown Completed [facility] Influenza Virus Vaccine Quad IM, Preserv and ABX Free 6 MO-64 YRS (FLUCELVAX) Unknown Completed [facility] Twinrix (hep a/hep b) Unknown Completed [facility] TDAP Unknown Completed [facility] Influenza Virus Vaccine Quad IM 3+ YRS Unknown Completed [facility] Twinrix (hep a/hep b) Unknown Completed [facility] Influenza Virus Vaccine Quad .5 mL IM 6+ MO (FLUZONE/FLULAVAL/F LUARIX) Unknown Completed [facility] Pneumococcal 13 Conjugate, PCV13 (Prevnar 13) Unknown Completed [facility] Twinrix (hep a/hep b) Unknown Completed [facility] Pneumococcal Polysaccharide, PPSV23 (PNEUMOVAX) Unknown Completed [facility] SARS-COV-2 COVID-19 PFIZER VACCINE Unknown Completed [facility] SARS-COV-2 COVID-19 PFIZER VACCINE Unknown Completed [facility] SARS-COV-2 COVID-19 PFIZER VACCINE Unknown Completed [facility] Influenza Virus Vaccine Quad IM, Preserv and ABX Free 6 MO-64 YRS (FLUCELVAX) Unknown Completed [facility] SARS-COV-2 COVID-19 JOHANA-SUCROSE VACCINE 12 YRS+, BIVALENT 0.3ML, IM, (PFIZER ORTIZ TOP) Unknown Completed [facility] Influenza Virus Vaccine Quad IM, Preserv and ABX Free 6 MO-64 YRS (FLUCELVAX) Unknown Completed [facility] Twinrix (hep a/hep b) Unknown Completed [facility] TDAP Unknown Completed [facility] Influenza Virus Vaccine Quad IM 3+ YRS Unknown Completed [facility] Twinrix (hep a/hep b) Unknown Completed [facility] Influenza Virus Vaccine Quad .5 mL IM 6+ MO (FLUZONE/FLULAVAL/F LUARIX) Unknown Completed [facility] Pneumococcal 13 Conjugate, PCV13 (Prevnar 13) Unknown Completed [facility] Twinrix (hep a/hep b) Unknown Completed [facility] Pneumococcal Polysaccharide, PPSV23 (PNEUMOVAX) Unknown Completed [facility] SARS-COV-2 COVID-19 PFIZER VACCINE Unknown Completed [facility] SARS-COV-2 COVID-19 PFIZER VACCINE Unknown Completed [facility] SARS-COV-2 COVID-19 PFIZER VACCINE Unknown Completed [facility] Influenza Virus Vaccine Quad IM, Preserv and ABX Free 6 MO-64 YRS (FLUCELVAX) Unknown Completed [facility] SARS-COV-2 COVID-19 JOHANA-SUCROSE VACCINE 12 YRS+, BIVALENT 0.3ML, IM, (PFIZER ORTIZ TOP) Unknown Completed [facility] Influenza Virus Vaccine Quad IM, Preserv and ABX Free 6 MO-64 YRS (FLUCELVAX) Unknown Completed [facility] Vital Signs Vital Name Observation Time Observation Value Comments S ource Systolic blood pressure 2023-08-29 17:11:00 113 mm[Hg] [facility] Diastolic blood pressure 2023-08-29 17:11:00 76 mm[Hg] [facility] Heart rate 2023-08-29 17:11:00 79 /min [facility] Body temperature 2023-08-29 17:11:00 35.61 Divya [facility] Respiratory rate 2023-08-29 17:11:00 16 /min [facility] Body height 2023-08-29 17:11:00 182.9 cm [facility] Body weight 2023-08-29 17:11:00 82.146 kg [facility] BMI 2023-08-29 17:11:00 24.56 kg/m2 [facility] Oxygen saturation in Arterial blood by Pulse oximetry 2023-08-29 17:11:00 97 /min [facility] Systolic blood pressure 2023-08-10 16:54:00 125 mm[Hg] [facility] Diastolic blood pressure 2023-08-10 16:54:00 84 mm[Hg] [facility] Heart rate 2023-08-10 16:54:00 87 /min [facility] Body temperature 2023-08-10 16:54:00 36.56 Divya [facility] Respiratory rate 2023-08-10 16:54:00 18 /min [facility] Body height 2023-08-10 16:54:00 182.9 cm [facility] Body weight 2023-08-10 16:54:00 80.287 kg [facility] BMI 2023-08-10 16:54:00 24.01 kg/m2 [facility] Oxygen saturation in Arterial blood by Pulse oximetry 2023-08-10 16:54:00 97 /min [facility] Systolic blood pressure 2023-04-14 04:43:00 123 mm[Hg] [facility] Diastolic blood pressure 2023-04-14 04:43:00 79 mm[Hg] [facility] Heart rate 2023-04-14 04:43:00 68 /min [facility] Respiratory rate 2023-04-14 04:43:00 20 /min [facility] Oxygen saturation in Arterial blood by Pulse oximetry 2023-04-14 04:43:00 100 /min [facility] Body temperature 2023-04-14 02:11:00 37 Divya [facility] Body height 2023-04-14 02:11:00 182.9 cm [facility] Body weight 2023-04-14 02:11:00 80.74 kg [facility] BMI 2023-04-14 02:11:00 24.14 kg/m2 [facility] Systolic blood pressure 2023-03-11 16:22:00 110 mm[Hg] [facility] Diastolic blood pressure 2023-03-11 16:22:00 83 mm[Hg] [facility] Heart rate 2023-03-11 16:22:00 87 /min [facility] Body temperature 2023-03-11 16:22:00 36 Divya [facility] Respiratory rate 2023-03-11 16:22:00 14 /min [facility] Oxygen saturation in Arterial blood by Pulse oximetry 2023-03-11 16:22:00 99 /min [facility] Body weight 2023-03-11 09:04:00 79.969 kg [facility] BMI 2023-03-11 09:04:00 23.91 kg/m2 [facility] Body height 2023-03-09 17:48:00 182.9 cm [facility] Systolic blood pressure 2023-02-17 15:46:00 114 mm[Hg] [facility] Diastolic blood pressure 2023-02-17 15:46:00 74 mm[Hg] [facility] Heart rate 2023-02-17 15:46:00 87 /min [facility] Body temperature 2023-02-17 15:46:00 36.61 Divya [facility] Respiratory rate 2023-02-17 15:46:00 18 /min [facility] Body height 2023-02-17 15:46:00 182.9 cm [facility] Body weight 2023-02-17 15:46:00 82.328 kg [facility] BMI 2023-02-17 15:46:00 24.62 kg/m2 [facility] Oxygen saturation in Arterial blood by Pulse oximetry 2023-02-17 15:46:00 98 /min room air [facility] Systolic blood pressure 2022-11-25 15:45:00 119 mm[Hg] [facility] Diastolic blood pressure 2022-11-25 15:45:00 77 mm[Hg] [facility] Heart rate 2022-11-25 15:45:00 94 /min [facility] Body temperature 2022-11-25 15:45:00 34.67 Divya [facility] Respiratory rate 2022-11-25 15:45:00 18 /min [facility] Body height 2022-11-25 15:45:00 182.9 cm [facility] Body weight 2022-11-25 15:45:00 83.915 kg [facility] BMI 2022-11-25 15:45:00 25.09 kg/m2 [facility] Oxygen saturation in Arterial blood by Pulse oximetry 2022-11-25 15:45:00 98 /min [facility] Systolic blood pressure 2022-08-26 15:24:00 130 mm[Hg] [facility] Diastolic blood pressure 2022-08-26 15:24:00 82 mm[Hg] [facility] Heart rate 2022-08-26 15:24:00 85 /min [facility] Body temperature 2022-08-26 15:24:00 36.39 Divya [facility] Respiratory rate 2022-08-26 15:24:00 18 /min [facility] Body height 2022-08-26 15:24:00 182.9 cm [facility] Body weight 2022-08-26 15:24:00 84.596 kg [facility] BMI 2022-08-26 15:24:00 25.29 kg/m2 [facility] Systolic blood pressure 2022-08-08 23:18:00 99 mm[Hg] [facility] Diastolic blood pressure 2022-08-08 23:18:00 79 mm[Hg] [facility] Heart rate 2022-08-08 23:18:00 95 /min [facility] 2022-08-08 23:18:00 36.61 Divya [facility] Respiratory rate 2022-08-08 23:18:00 18 /min [facility] Body height 2022-08-08 23:18:00 182.9 cm [facility] Body weight 2022-08-08 23:18:00 80.74 kg [facility] BMI 2022-08-08 23:18:00 24.14 kg/m2 [facility] Oxygen saturation in Arterial blood by Pulse oximetry 2022-08-08 23:18:00 97 /min [facility] Body weight 2022-04-05 18:03:00 82.555 kg deferred [facility] BMI 2022-04-05 18:03:00 24.68 kg/m2 [facility] Body temperature 2022-03-29 16:53:00 36.22 Divya [facility] Body weight 2022-03-29 16:53:00 82.555 kg [facility] BMI 2022-03-29 16:53:00 24.68 kg/m2 [facility] Body weight 2022-03-22 18:56:00 82.781 kg [facility] BMI 2022-03-22 18:56:00 24.75 kg/m2 [facility] Procedures Procedure Date / Time Performed Performing Clinicia n Source US GALL BLADDER 2023-04-14 04:57:02 Liseth Gamez [facility] URINALYSIS 2023-04-14 04:49:00 Liseth Gamez [facility] CT ABDOMEN PELVIS W CONTRAST 2023-04-14 03:20:00 Liseth Gamez [facility] LIPASE 2023-04-14 03:02:00 Liseth Gamez [facility] TROPONIN I 2023-04-14 03:02:00 Vera Liseth Edwin Erika [facility] COMP. METABOLIC PANEL ([id number]) 2023-04-14 03:02:00 Liseth Gamez [facility] CBC WITH DIFF 2023-04-14 03:02:00 Liseth Gamez [facility] N-TERMINAL PRO-BNP 2023-04-14 03:02:00 Leann Gamez Edwin [facility] LACTIC ACID WHOLE BLOOD 2023-04-14 03:02:00 Liseth Gamez Edwin [facility] CONSENT/REFUSAL FOR DIAGNOSIS AND TREATMENT 2023-04-14 02:06:04 Doctor Unassigned, [place] [facility] BASIC METABOLIC PANEL (NA, K, CL, CO2, GLUCOSE, BUN, CREATININE, CA) 2023-03-11 09:36:00 Donna [facility] CBC WITH DIFF 2023-03-11 09:36:00 Donna [facility] VANCOMYCIN TROUGH 2023-03-11 02:17:00 Martha Hendricks ie P [facility] CT HAND RIGHT W CONTRAST 2023-03-10 20:03:49 Donna [facility] MAGNESIUM 2023-03-10 10:15:00 Meghana Russell [facility] BASIC METABOLIC PANEL (NA, K, CL, CO2, GLUCOSE, BUN, CREATININE, CA) 2023-03-10 10:15:00 Meghana Russell [facility] CBC WITH DIFF 2023-03-10 10:15:00 Meghana Russell [facility] MRSA / MSSA SCREEN BY PCR, TARIK 2023-03-09 22:13:00 Meghana Russell [facility] BLOOD CULTURE SCREEN 2023-03-09 14:39:00 Guillermo Cartagena [facility] COMP. METABOLIC PANEL (53489) 2023-03-09 14:39:00 Fabiola Cartagena [facility] CBC WITH DIFF 2023-03-09 14:39:00 Fabiola Cartagena [facility] NOTICE OF PRIVACY PRACTICES 2023-03-09 13:56:14 Doctor Unassigned, [place] [facility] CONSENT/REFUSAL FOR DIAGNOSIS AND TREATMENT 2023-03-09 13:54:37 Doctor Unassigned, [place] [facility] FLU VACC (), 6 MO-64 YRS, .5ML, IM, QUAD (FLUCELVAX) 2022-08-26 16:27:05 Bonnie Sood [facility] SARS-COV-2 COVID-19 JOHANA-SUCROSE VACCINE 12 YRS+, BIVALENT 0.3ML, IM, (PFIZER ORTIZ TOP BOOSTER) 2022-08-26 16:27:05 Barrie [facility] LACTIC ACID WHOLE BLOOD 2022-08-09 00:41:00 [facility] BLOOD CULTURE SCREEN 2022-08-09 00:40:00 Carr, [facility] COMP. METABOLIC PANEL (29352) 2022-08-09 00:40:00 [facility] CBC WITH DIFF 2022-08-09 00:40:00 [facility] CONSENT/REFUSAL FOR DIAGNOSIS AND TREATMENT 2022-08-08 23:03:16 Doctor Unassigned, [place] [facility] Encounters Start Date/Time End Date/Time Encounter Type Admission Type Attending [facility] Care Department Encounter ID Source 2022-06-10 12:40:01 Outpatient CHW CHW [id number] [facility] 2021 10:29:04 Emergency [facility] [id number] [facility] 2021-07-11 22:52:28 Emergency [facility] [id number] [facility] 2021-07-11 03:13:26 Emergency [facility] [id number] [facility] 2023-12-15 15:00:00 2023-12-15 15:00:00 Outpatient KALLI FONSECA [facility] [id number] [facility] 2023-12-14 00:00:00 2023-12-14 00:00:00 Telephone Lina Phelps [facility] 1.2.840.114 350.1.13.10 4.2.7.2.686 [id number] 089 [id number] [facility] 2023-12-07 00:00:00 2023-12-07 00:00:00 Case Management Lina Merritt [facility] 1.2840.114 350.1.13.10 4.2.7.2.686 [id number] 089 [id number] [facility] 2023-11-24 08:00:00 2023-11-24 08:00:00 Outpatient R KALLI STEVENS [facility] [id number] [facility] 2023-11-24 00:00:00 2023-11-24 00:00:00 Telephone Kalli Stevens [facility] 1.2840.114 350.1.13.10 4.2.7.2.686 [id number] 089 [id number] [facility] 2023-11-24 00:00:00 2023-11-24 00:00:00 Telephone Kalli Stevens [facility] 1.2.840.114 350.1.13.10 4.2.7.2.686 [id number] 089 [id number] [facility] 2023-11-24 00:00:00 2023-11-24 00:00:00 Telephone Kalli Stevens [facility] 1.2.840.114 350.1.13.10 4.2.7.2.686 [id number] 089 [id number] [facility] 2023-11-18 00:00:00 2023-11-18 00:00:00 Case Management Lina Phelps [facility] 1.2840.114 350.1.13.10 4.2.7.2.686 [id number] 089 [id number] [facility] 2023-11-17 15:00:00 2023-11-17 16:00:00 Telemedici ne Visit Kalli Stevens [facility] 1.114 350.1.13.10 4.2.7.2.686 [id number] 089 [id number] [facility] 2023-11-17 15:00:00 2023-11-17 15:00:00 Outpatient Elisabeth KALLI STEVENS [facility] [id number] [facility] 2023-11-16 00:00:00 2023-11-16 00:00:00 Case Management Todd [facility] 1..114 350.1.13.10 4.2.7.2.686 [id number] 089 [id number] [facility] 2023-11-03 15:00:00 2023-11-03 16:00:00 Telemedici ne Visit Kalli Stevens [facility] 1..114 350.1.13.10 4.2.7.2.686 [id number] 089 [id number] [facility] 2023-11-03 15:00:00 2023-11-03 15:00:00 Outpatient Elisabeth KALLI STEVENS [facility] [id number] [facility] 2023-11-02 00:00:00 2023-11-02 00:00:00 Case Management Todd [facility] 1.114 350.1.13.10 4.2.7.2.686 [id number] 089 [id number] [facility] 2023-10-20 15:00:00 2023-10-20 16:00:00 Telemedici ne Visit Kalli Stevens [facility] 1.114 350.1.13.10 4.2.7.2.686 [id number] 089 [id number] [facility] 2023-10-20 15:00:00 2023-10-20 15:00:00 Outpatient Elisabeth KALLI STEVENS [facility] [id number] [facility] 2023-10-19 00:00:00 2023-10-19 00:00:00 Telephone Jannie Phelpslashay Barber [facility] 1.20.114 350.1.13.10 4.2.7.2.686 [id number] 089 [id number] [facility] 2023-10-18 00:00:00 2023-10-18 00:00:00 Case Management Beatriz Su [facility] 1.20.114 350.1.13.10 4.2.7.2.686 [id number] 089 [id number] [facility] 2023-10-14 00:00:00 2023-10-14 00:00:00 Telephone Todd Rabago Lina [facility] 1.2.114 350.1.13.10 4.2.7.2.686 [id number] 089 [id number] [facility] 2023-10-13 15:00:00 2023-10-13 16:00:00 Office Visit Kalli Stevens [facility] 1.2.114 350.1.13.10 4.2.7.2.686 [id number] 089 [id number] [facility] 2023-10-13 15:00:00 2023-10-13 15:00:00 Outpatient KALLI FONSECA [facility] [id number] [facility] 2023-10-12 00:00:00 2023-10-12 00:00:00 Telephone Jannie Phelpsyl [facility] 1..114 350.1.13.10 4.2.7.2.686 [id number] 089 [id number] [facility] 2023-10-06 10:00:00 2023-10-06 10:00:00 Outpatient STANLEY AVILA CHRISTOPHER [facility] [id number] [facility] 2023-10-06 00:00:00 2023-10-06 00:00:00 Telephone Kalli Stevens [facility] 1.0.114 350.1.13.10 4.2.7.2.686 [id number] 089 [id number] [facility] 2023-10-05 00:00:00 2023-10-05 00:00:00 Telephone Lina Phelps [facility] 1.840.114 350.1.13.10 4.2.7.2.686 [id number] 089 [id number] [facility] 2023-09-14 00:00:00 2023-09-14 00:00:00 Case Management Lina Merritt [facility] 1..114 350.1.13.10 4.2.7.2.686 [id number] 089 [id number] [facility] 2023-09-10 00:00:00 2023-09-10 00:00:00 Outpatient MEGHANA LAWTON [facility] [id number] [facility] 2023-09-01 00:00:00 2023-09-01 00:00:00 Case Management Kenneth Choudhary [facility] 1..114 350.1.13.10 4.2.7.2.686 [id number] 089 [id number] [facility] 2023-08-29 11:45:00 2023-08-29 12:00:[address] [facility] Hunter, [facility] 1..114 350.1.13.10 4.2.7.2.686 [id number] [facility] 2023-08-29 10:30:00 2023-08-29 11:00:00 Office Visit Elsa [facility] 1.0.114 350.1.13.10 4.2.7.2.686 [id number] 089 [id number] [facility] 2023-08-29 10:30:00 2023-08-29 10:30:00 Outpatient R STANLEY HUNTER CHRISTOPHER [facility] [id number] [facility] 2023-08-29 00:00:00 2023-08-29 00:00:00 Case Management Mary Fernando PLAANN 1.0.114 350.1.13.10 4.2.7.2.686 [id number] 086 [id number] [facility] 2023-08-29 00:00:00 2023-08-29 00:00:00 Case Management Dm Chan [facility] 1.0.114 350.1.13.10 4.2.7.2.686 [id number] 089 [id number] [facility] 2023-08-25 11:00:00 2023-08-25 11:00:00 Outpatient R KALLI STEVENS [facility] [id number] [facility] 2023-08-25 00:00:00 2023-08-25 00:00:00 Telephone Kalli Stevens [facility] 1.0.114 350.1.13.10 4.2.7.2.686 [id number] 089 [id number] [facility] 2023-08-22 00:00:00 2023-08-22 00:00:00 Case Management Renee Lorenzo [facility] 1.0.114 350.1.13.10 4.2.7.2.686 [id number] 089 [id number] [facility] 2023-08-19 00:00:00 2023-08-19 00:00:00 Case Management Mary Fernando [facility] 1.20.114 350.1.13.10 4.2.7.2.686 [id number] 086 [id number] [facility] 2023-08-11 00:00:00 2023-08-11 00:00:00 Case Management Mary Fernando [facility] 1.840.114 350.1.13.10 4.2.7.2.686 [id number] 086 [id number] [facility] 2023-08-10 10:30:00 2023-08-10 11:00:00 [facility] 1.840.114 350.1.13.10 4.2.7.2.686 [id number] 089 [id number] [facility] 2023-08-10 10:30:00 2023-08-10 10:30:00 Outpatient R STANLEY HUNTER CHRISTOPHER [facility] [id number] [facility] 2023-08-10 00:00:00 2023-08-10 00:00:00 Case Management Lina Merritt [facility] 1.0.114 350.1.13.10 4.2.7.2.686 [id number] 089 [id number] [facility] 2023-08-10 00:00:00 2023-08-10 00:00:00 Case Management [facility] 1.840.114 350.1.13.10 4.2.7.2.686 [id number] 089 [id number] [facility] 2023-08-09 00:00:00 2023-08-09 00:00:00 Telephone Renee Lorenzo [facility] 1..114 350.1.13.10 4.2.7.2.686 [id number] 089 [id number] [facility] 2023-08-03 00:00:00 2023-08-03 00:00:00 Case Management [facility] 1.840.114 350.1.13.10 4.2.7.2.686 [id number] 089 [id number] [facility] 2023-08-03 00:00:00 2023-08-03 00:00:00 Case Management Barbara De Guzman [facility] 1.2840.114 350.1.13.10 4.2.7.2.686 [id number] 089 [id number] [facility] 2023-08-02 00:00:00 2023-08-02 00:00:00 Case Management Flynn Lorenzot Wilmer [facility] 1.0.114 350.1.13.10 4.2.7.2.686 [id number] 089 [id number] [facility] 2023-05-24 08:30:00 2023-05-24 08:30:00 Outpatient R ALANNA JACKSON [facility] [id number] [facility] 2023-05-12 00:00:00 2023-05-12 00:00:00 Case Management Kenneth Choudhary [facility] 1.84.114 350.1.13.10 4.2.7.2.686 [id number] 089 [id number] [facility] 2023-04-13 21:18:00 2023-04-14 01:16:00 Emergency X LISETH GAMEZ [facility] ERT [id number] [facility] 2023-04-13 21:18:00 2023-04-14 01:16:00 Emergency Liseth Gamez [facility] 1.840.114 350.1.13.10 4.2.7.2.686 [id number] 084 [id number] [facility] 2023-03-09 09:00:00 2023-03-11 12:33:00 Outpatient X MEGHANA RUSSELL [facility] [id number] [facility] 2023-03-09 09:00:00 2023-03-11 12:33:00 Emergency Fabiola Cartagena David [facility] 1..114 350.1.13.10 4.2.7.2.686 [id number] 081 [id number] [facility] 2023-03-08 00:00:00 2023-03-08 00:00:00 Patient Secure Msg Doctor Unassigned, [place] [facility] 1..114 350.1.13.10 4.2.7.2.686 [id number] 044 [id number] [facility] 2023-02-17 10:30:00 2023-02-17 11:00:00 Office Visit Bonnie Sood [facility] 1..114 350.1.13.10 4.2.7.2.686 [id number] 089 [id number] [facility] 2023-02-17 10:30:00 2023-02-17 10:30:00 Outpatient R MEGHANA GARSIA [facility] [id number] [facility] 2023-02-17 09:30:00 2023-02-17 09:45:[address] [facility] Alvaro [facility] 1.114 350.1.13.10 4.2.7.2.686 [id number] [facility] 2023-02-16 00:00:00 2023-02-16 00:00:00 Telephone Renee Lorenzo [facility] 1..114 350.1.13.10 4.2.7.2.686 [id number] 089 [id number] [facility] 2023-02-11 00:00:00 2023-02-11 00:00:00 Telephone Bonnie Sood [facility] 1..114 350.1.13.10 4.2.7.2.686 [id number] 089 [id number] [facility] 2023-01-27 10:00:00 2023-01-27 10:00:00 Outpatient R [facility] [id number] [facility] 2023-01-27 00:00:00 2023-01-27 00:00:00 Telephone Bonnie Sood [facility] 1.2840.114 350.1.13.10 4.2.7.2.686 [id number] 089 [id number] [facility] 2023-01-21 00:00:00 2023-01-21 00:00:00 Case Management Renee Lorenzo L [facility] 1.2840.114 350.1.13.10 4.2.7.2.686 [id number] 089 [id number] [facility] 2023-01-13 00:00:00 2023-01-13 00:00:00 Case Management Kenneth Choudhary L [facility] 1.2840.114 350.1.13.10 4.2.7.2.686 [id number] 089 [id number] [facility] 2022-12-29 00:00:00 2022-12-29 00:00:00 Case Management Lina Phelps [facility] 1.2840.114 350.1.13.10 4.2.7.2.686 [id number] 089 [id number] [facility] 2022-12-02 10:15:00 2022-12-02 10:15:00 Outpatient R INDIGO VICTOR [facility] [id number] [facility] 2022-11-25 10:00:00 2022-11-25 10:30:00 Office Visit Bonnie Sood David [facility] 1.20.114 350.1.13.10 4.2.7.2.686 [id number] 089 [id number] [facility] 2022-11-25 10:00:00 2022-11-25 10:00:00 Outpatient MEGHANA LAWTON [facility] [id number] [facility] 2022-11-24 00:00:00 2022-11-24 00:00:00 Telephone Lina Phelps [facility] 1.2840.114 350.1.13.10 4.2.7.2.686 [id number] 089 [id number] [facility] 2022-09-09 13:29:08 2022-09-09 23:59:00 Outpatient R MEGHANA GARSIA [facility] [id number] [facility] 2022-09-09 13:29:08 2022-09-09 23:59:00 Hospital Encounter Garsia, [facility] 1.2840.114 350.1.13.10 4.2.7.2.686 [id number] [facility] 2022-09-09 14:00:00 2022-09-09 14:15:[address] [facility] 1.2840.114 350.1.13.10 4.2.7.2.686 [id number] [facility] 2022-09-08 00:00:00 2022-09-08 00:00:00 [facility] 1.2840.114 350.1.13.10 4.2.7.2.686 [id number] 089 [id number] [facility] 2022-08-31 00:00:00 2022-08-31 00:00:00 [facility] 1.2840.114 350.1.13.10 4.2.7.2.686 [id number] 089 [id number] [facility] 2022-08-31 00:00:00 2022-08-31 00:00:00 [facility] 1.2840.114 350.1.13.10 4.2.7.2.686 [id number] 089 [id number] [facility] 2022-08-27 00:00:00 2022-08-27 00:00:00 Patient Secure g Alvaro [facility] 1.114 350.1.13.10 4.2.7.2.686 [id number] 089 [id number] [facility] 2022-08-26 09:30:00 2022-08-26 10:00:00 [facility] 1.114 350.1.13.10 4.2.7.2.686 [id number] 089 [id number] [facility] 2022-08-26 09:30:00 2022-08-26 09:30:00 Outpatient R MEGHANA GARSIA [facility] [id number] [facility] 2022-08-19 09:00:00 2022-08-19 09:00:00 Outpatient R MEGHANA GARSIA [facility] [id number] [facility] 2022-08-18 00:00:00 2022-08-18 00:00:00 Case Management Renee Lorenzo [facility] 1.114 350.1.13.10 4.2.7.2.686 [id number] 089 [id number] [facility] 2022-08-17 13:00:00 2022-08-17 13:00:00 Outpatient KALLI ARAIZA [facility] [id number] [facility] 2022-08-17 00:00:00 2022-08-17 00:00:00 Patient Secure Msg Doctor Unassigned, [place] [facility] 1..114 350.1.13.10 4.2.7.2.686 [id number] 019 [id number] [facility] 2022-08-17 00:00:00 2022-08-17 00:00:00 Patient Secure Msg Doctor Unassigned, [place] [facility] 1.2840.114 350.1.13.10 4.2.7.2.686 [id number] 089 [id number] [facility] 2022-08-16 00:00:00 2022-08-16 00:00:00 Case Management Vannesa Sury [facility] 1.2840.114 350.1.13.10 4.2.7.2.686 [id number] 089 [id number] [facility] 2022-08-16 00:00:00 2022-08-16 00:00:00 Telephone Alvaro [facility] 1.20.114 350.1.13.10 4.2.7.2.686 [id number] 089 [id number] [facility] 2022-08-16 00:00:00 2022-08-16 00:00:00 Telephone Beatriz Su Wilmer [facility] 1.2840.114 350.1.13.10 4.2.7.2.686 [id number] 089 [id number] [facility] 2022-08-16 00:00:00 2022-08-16 00:00:00 Patient Secure Msg Alvaro [facility] 1.2840.114 350.1.13.10 4.2.7.2.686 [id number] 089 [id number] [facility] 2022-08-16 00:00:00 2022-08-16 00:00:00 Patient Secure Msg Alvaro [facility] 1.2840.114 350.1.13.10 4.2.7.2.686 [id number] 089 [id number] [facility] 2022-08-10 00:00:00 2022-08-10 00:00:00 Case Management Renee Lorenzo [facility] 1.2840.114 350.1.13.10 4.2.7.2.686 [id number] 089 [id number] [facility] 2022-08-09 00:00:00 2022-08-09 00:00:00 Telephone Meghana Garsia [facility] 1.840.114 350.1.13.10 4.2.7.2.686 [id number] 089 [id number] [facility] 2022-08-08 17:21:00 2022-08-08 22:31:00 Emergency X JOSSE CARR [facility] KIMO [id number] [facility] 2022-08-08 17:21:00 2022-08-08 22:31:00 Emergency Josse Carr David [facility] 1.840.114 350.1.13.10 4.2.7.2.686 [id number] 084 [id number] [facility] 2022-08-02 00:00:00 2022-08-02 00:00:00 Case Management Beatriz Su [facility] 1.840.114 350.1.13.10 4.2.7.2.686 [id number] 089 [id number] [facility] 2022-07-08 00:00:00 2022-07-08 00:00:00 Telephone Renee Lorenzo [facility] 1.0.114 350.1.13.10 4.2.7.2.686 [id number] 089 [id number] [facility] 2022-06-10 09:30:00 2022-06-10 09:30:00 Outpatient R MEGHANA GARSIA [facility] [id number] [facility] 2022-06-09 00:00:00 2022-06-09 00:00:00 Telephone Renee Lorenzo [facility] 1.840.114 350.1.13.10 4.2.7.2.686 [id number] 089 [id number] [facility] 2022-05-20 10:00:00 2022-05-20 10:00:00 Outpatient MEGHANA LAWTON [facility] [id number] [facility] 2022-05-20 10:00:00 2022-05-20 10:00:00 Outpatient MEGHANA LAWTON [facility] [id number] [facility] 2022-05-20 10:00:00 2022-05-20 10:00:00 Outpatient MEGHANA LAWTON [facility] [id number] [facility] 2022-05-20 00:00:00 2022-05-20 00:00:00 Case Management Lina Merritt [facility] 1.840.114 350.1.13.10 4.2.7.2.686 [id number] 089 [id number] [facility] 2022-05-20 00:00:00 2022-05-20 00:00:00 Telephone Alvaro [facility] 1.0.114 350.1.13.10 4.2.7.2.686 [id number] 089 [id number] [facility] 2022-05-19 00:00:00 2022-05-19 00:00:00 Telephone Renee Lorenzo [facility] 1.2840.114 350.1.13.10 4.2.7.2.686 [id number] 089 [id number] [facility] 2022-04-05 13:00:00 2022-04-05 13:01:14 Outpatient Elisabeth GARSIA, MEGHANA [facility] [id number] [facility] 2022-04-05 13:00:00 2022-04-05 13:01:14 Nurse Visit Visit, [facility] 1.840.114 350.1.13.10 4.2.7.2.686 [id number] 089 [id number] [facility] 2022-03-29 13:00:00 2022-03-29 13:15:00 Nurse Visit Visit, [facility] Id Nurse Sanjuana Hutchinson [facility] 1..114 350.1.13.10 4.2.7.2.686 [id number] 089 [id number] [facility] 2022-03-29 13:00:00 2022-03-29 13:00:00 Outpatient SANJUANA BAKER [facility] [id number] [facility] 2022-03-29 13:00:00 2022-03-29 13:00:00 Outpatient SANJUANA BAKER [facility] [id number] [facility] 2022-03-22 13:00:00 2022-03-22 13:15:00 Nurse Visit Visit, [facility] Id Nurse Alvaro [facility] 1.84.114 350.1.13.10 4.2.7.2.686 [id number] [facility] 2022-03-22 13:00:00 2022-03-22 13:00:00 Outpatient MEGHANA LAWTON [facility] [id number] [facility] 2022-02-17 13:30:00 2022-02-17 13:45:00 Nurse Visit Visit, [facility] Id Nurse Alvaro [facility] 1.84.114 350.1.13.10 4.2.7.2.686 [id number] [facility] 2022-02-17 13:30:00 2022-02-17 13:30:00 Outpatient MEGHANA LAWTON [facility] [id number] [facility] 2022-02-01 00:00:00 2022-02-01 00:00:00 Meghana Todd [facility] 1..114 350.1.13.10 4.2.7.2.686 [id number] [facility] 2022-01-29 00:00:00 2022-01-29 00:00:00 Case Management Barbara De Guzman [facility] 1.2840.114 350.1.13.10 4.2.7.2.686 [id number] [facility] 2022-01-14 12:45:00 2022-01-14 13:00:[address] [facility] 1.20.114 350.1.13.10 4.2.7.2.686 [id number] [facility] 2022-01-14 11:30:00 2022-01-14 12:00:00 Office Visit Alvaro [facility] 1.20.114 350.1.13.10 4.2.7.2.686 [id number] [facility] 2022-01-14 11:30:00 2022-01-14 11:30:00 Outpatient R MEGHANA GARSIA [facility] [id number] [facility] 2022-01-14 10:30:00 2022-01-14 10:30:00 Outpatient R [facility] [id number] [facility] 2022-01-12 00:00:00 2022-01-12 00:00:00 Telephone Renee Lorenzo [facility] 1..114 350.1.13.10 4.2.7.2.686 [id number] [facility] 2022-01-11 00:00:00 2022-01-11 00:00:00 Case Management Renee Lorenzo [facility] 1.20.114 350.1.13.10 4.2.7.2.686 [id number] [facility] 2022-01-02 15:56:00 2022-01-03 15:40:00 Outpatient X TREY CRUZAN [facility] [id number] [facility] 2022-01-02 15:56:00 2022-01-03 15:40:00 Emergency [place] Yaman [facility] 1..114 350.1.13.10 4.2.7.2.686 [id number] [facility] 2021-12-26 00:00:00 2021-12-26 00:00:00 Nurse Triage Nancy Andujar [facility] 1..114 350.1.13.10 4.2.7.2.686 [id number] [facility] 2021-10-15 12:30:00 2021-10-15 12:45:[address] [facility] Meghana Garsia [facility] 1.114 350.1.13.10 4.2.7.2.686 [id number] [facility] 2021-10-15 12:30:00 2021-10-15 12:30:00 Outpatient MEGHANA LAWTON [facility] [id number] [facility] 2021-10-15 10:30:00 2021-10-15 11:00:00 Office Visit Gregorio Hanna David [facility] 1.114 350.1.13.10 4.2.7.2.686 [id number] [facility] 2021-10-15 10:30:00 2021-10-15 10:30:00 Outpatient MEGHANA LAWTON [facility] [id number] [facility] 2021-10-14 00:00:00 2021-10-14 00:00:00 Case Management Lina Phelps [facility] 1.114 350.1.13.10 4.2.7.2.686 [id number] [id number] [facility] 2021-10-12 00:00:00 2021-10-12 00:00:00 Case Management Renee Lorenzo [facility] 1.0.114 350.1.13.10 4.2.7.2.686 [id number] 089 [id number] [facility] 2021-09-29 19:15:00 2021-09-29 19:15:00 Outpatient R JORGE GARCIA [facility] [id number] [facility] 2021-08-28 00:00:00 2021-08-28 00:00:00 Case Management Beatriz Su [facility] 1.0.114 350.1.13.10 4.2.7.2.686 [id number] 089 [id number] [facility] 2021-08-19 00:00:00 2021-08-19 00:00:00 Case Management Beatriz Su [facility] 1..114 350.1.13.10 4.2.7.2.686 [id number] 089 [id number] [facility] 2021-08-13 08:30:00 2021-08-13 08:30:00 Outpatient MEGHANA LAWTON [facility] [id number] [facility] 2021-08-12 00:00:00 2021-08-12 00:00:00 Case Management Lina Phelps [facility] 1..114 350.1.13.10 4.2.7.2.686 [id number] 089 [id number] [facility] 2021-08-10 00:00:00 2021-08-10 00:00:00 Case Management Renee Lorenzo [facility] 1.0.114 350.1.13.10 4.2.7.2.686 [id number] 089 [id number] [facility] 2021-08-06 21:37:00 2021-08-06 23:38:00 Emergency X REYES BECKHAM [facility] ERT [id number] [facility] 2021-08-06 21:37:00 2021-08-06 23:38:00 Emergency Reyes Beckham [facility] 1.840.114 350.1.13.10 4.2.7.2.686 [id number] 084 [id number] [facility] 2021-08-05 00:00:00 2021-08-05 00:00:00 Telephone Aristides Engel [facility] 1.0.114 350.1.13.10 4.2.7.2.686 [id number] 089 [id number] [facility] 2021-07-27 00:00:00 2021-07-27 00:00:00 Case Management Beatriz Su [facility] 1.0.114 350.1.13.10 4.2.7.2.686 [id number] 089 [id number] [facility] 2021-07-23 00:00:00 2021-07-23 00:00:00 Case Management Beatriz Su [facility] 1.2840.114 350.1.13.10 4.2.7.2.686 [id number] 089 [id number] [facility] 2021-06-17 13:40:00 2021-06-17 13:39:00 Outpatient ANTHONY OLIVER [facility] [id number] [facility] 2021-06-17 13:38:48 2021-06-17 13:39:00 Imm/Inj Visit Nurse, Tr Posandra Immunizatio Anthony Riley [facility] 1.0.114 350.1.13.10 4.2.7.2.686 [id number] [facility] 2021-04-09 10:36:18 2021-04-09 11:06:18 Office Visit Gregorio Hanna David [facility] 1.2840.114 350.1.13.10 4.2.7.2.686 [id number] 089 [id number] [facility] 2021-04-09 10:30:00 2021-04-09 10:30:00 Outpatient MEGHANA LAWTON [facility] [id number] [facility] 2021-04-06 00:00:00 2021-04-06 00:00:00 Telephone Gregorio Hanna [facility] 1.2840.114 350.1.13.10 4.2.7.2.686 [id number] 089 [id number] [facility] 2021-04-03 22:34:00 2021-04-04 01:29:00 Emergency Lorne Bojorquez [facility] 1.2.840.114 350.1.13.10 4.2.7.2.686 [id number] 084 [id number] [facility] 2021-02-06 00:00:00 2021-02-06 00:00:00 Case Management Beatriz Su [facility] 1.2840.114 350.1.13.10 4.2.7.2.686 [id number] 089 [id number] [facility] 2021-02-06 00:00:00 2021-02-06 00:00:00 Case Management Beatriz Su [facility] 1.2840.114 350.1.13.10 4.2.7.2.686 [id number] 089 [id number] [facility] 2021-02-05 10:56:43 2021-02-05 11:14:[address] [facility] Meghana Garsia [facility] 1.2840.114 350.1.13.10 4.2.7.2.686 [id number] [facility] 2021-02-05 10:30:00 2021-02-05 10:30:00 Outpatient R GREGORIO HANNA [facility] [id number] [facility] 2021-02-05 09:02:51 2021-02-05 09:32:51 Office Visit Gregorio Hanna [facility] 1.840.114 350.1.13.10 4.2.7.2.686 [id number] 089 [id number] [facility] 2021-02-05 00:00:00 2021-02-05 00:00:00 Case Management Beatriz Su [facility] 1..114 350.1.13.10 4.2.7.2.686 [id number] 089 [id number] [facility] 2021-02-03 00:00:00 2021-02-03 00:00:00 Telephone [facility] 1.2840.114 350.1.13.10 4.2.7.2.686 [id number] 089 [id number] [facility] 2021-01-29 00:00:00 2021-01-29 00:00:00 Telephone [facility] 1.840.114 350.1.13.10 4.2.7.2.686 [id number] 089 [id number] [facility] 2021-01-20 00:00:00 2021-01-20 00:00:00 Case Management Barbara De Guzman [facility] 1..114 350.1.13.10 4.2.7.2.686 [id number] 089 [id number] [facility] 2021-01-13 00:00:00 2021-01-13 00:00:00 Refill Aristides Engel Gregorio [facility] 1.2.840.114 350.1.13.10 4.2.7.2.686 [id number] 089 [id number] [facility] 2020-12-25 00:00:00 2020-12-25 00:00:00 Telephone Carlos AlbertoHamletMolly [facility] 1.2840.114 350.1.13.10 4.2.7.2.686 [id number] 089 [id number] [facility] 2020-12-24 16:20:00 2020-12-24 14:53:02 Outpatient ADELA CONTI [facility] [id number] [facility] 2020-12-03 12:10:00 2020-12-03 11:58:19 Outpatient ANTHONY OLIVER [facility] [id number] [facility] 2020-12-02 00:00:00 2020-12-02 00:00:00 Patient Outreach Anthony Johnson [facility] 1.84.114 350.1.13.10 4.2.7.2.686 [id number] [facility] 2020-11-06 10:45:38 2020-11-06 10:54:[address] [facility] 1.84.114 350.1.13.10 4.2.7.2.686 [id number] [facility] 2020-11-06 09:48:46 2020-11-06 10:46:07 Office Visit Gregorio Hanna [facility] 1..114 350.1.13.10 4.2.7.2.686 [id number] 089 [id number] [facility] 2020-11-06 10:00:00 2020-11-06 10:00:00 Outpatient MEGHANA LAWTON [facility] [id number] [facility] 2020-11-06 00:00:00 2020-11-06 00:00:00 Case Management Lina Phelps [facility] 1.2840.114 350.1.13.10 4.2.7.2.686 [id number] 089 [id number] [facility] 2020-11-05 00:00:00 2020-11-05 00:00:00 Case Management Molly Carcamo [facility] 1.2840.114 350.1.13.10 4.2.7.2.686 [id number] 089 [id number] [facility] 2020-11-04 00:00:00 2020-11-04 00:00:00 Case Management Lina Merritt Wilmer [facility] 1.840.114 350.1.13.10 4.2.7.2.686 [id number] 089 [id number] [facility] 2020-10-27 00:00:00 2020-10-27 00:00:00 Outpatient R SAMIA, DEC[place] [facility] [id number] [facility] 2020-10-22 14:07:00 2020-10-22 17:20:00 Emergency Fabiola Cartagena [facility] 1..114 350.1.13.10 4.2.7.2.686 [id number] 014 [id number] [facility] 2020-10-22 00:00:00 2020-10-22 00:00:00 [facility] 1.20.114 350.1.13.10 4.2.7.2.686 [id number] 089 [id number] [facility] 2020-10-21 00:00:00 2020-10-21 00:00:00 Telephone Brian [facility] 1.2840.114 350.1.13.10 4.2.7.2.686 [id number] 089 [id number] [facility] 2020-10-20 14:30:00 2020-10-20 14:30:00 Outpatient R SAMIA, [place] [facility] [id number] [facility] 2020-09-30 00:00:00 2020-09-30 00:00:00 Case Management Lina Merritt [facility] 1.840.114 350.1.13.10 4.2.7.2.686 [id number] 089 [id number] [facility] 2020-09-18 00:00:00 2020-09-18 00:00:00 Meghana Looney [facility] 1.0.114 350.1.13.10 4.2.7.2.686 [id number] 089 [id number] [facility] 2020-09-04 00:00:00 2020-09-04 00:00:00 Patient Secure Msg [facility] 1.840.114 350.1.13.10 4.2.7.2.686 [id number] 089 [id number] 2020-09-04 00:00:00 2020-09-04 00:00:00 Patient Secure Msg [facility] 1.840.114 350.1.13.10 4.2.7.2.686 [id number] 089 [id number] [facility] 2020-08-31 00:00:00 2020-08-31 00:00:00 Patient Secure Msg Doctor Unassigned, [place] [facility] 1.840.114 350.1.13.10 4.2.7.2.686 [id number] 019 [id number] [facility] 2020-08-22 00:00:00 2020-08-22 00:00:00 Patient Secure Msg Aristides Engel [facility] 1.840.114 350.1.13.10 4.2.7.2.686 [id number] 089 [id number] [facility] 2020-08-22 00:00:00 2020-08-22 00:00:00 [facility] 1.2.840.114 350.1.13.10 4.2.7.2.686 [id number] 089 [id number] [facility] 2020-08-22 00:00:00 2020-08-22 00:00:00 [facility] 1.2.840.114 350.1.13.10 4.2.7.2.686 [id number] 089 [id number] [facility] 2020-08-21 10:54:20 2020-08-21 11:58:50 Office Visit Aristides Engel [facility] 1.2.840.114 350.1.13.10 4.2.7.2.686 [id number] 089 [id number] 2020-08-21 10:54:20 2020-08-21 11:58:50 Office Visit [facility] 1.2.840.114 350.1.13.10 4.2.7.2.686 [id number] 089 [id number] [facility] 2020-08-21 11:30:00 2020-08-21 11:30:00 Outpatient R GREGORIO HANNA [facility] [id number] [facility] 2020-08-20 00:00:00 2020-08-20 00:00:00 Telephone Lina Phelps [facility] 1.2.840.114 350.1.13.10 4.2.7.2.686 [id number] 089 [id number] [facility] 2020-08-19 00:00:00 2020-08-19 00:00:00 Telephone Devonte Calzada [facility] 1.2.840.114 350.1.13.10 4.2.7.2.686 [id number] 089 [id number] [facility] 2020-07-30 00:00:00 2020-07-30 00:00:00 Case Management Dm Chan [facility] 1.2.840.114 350.1.13.10 4.2.7.2.686 [id number] 089 [id number] [facility] 2020-07-16 18:24:00 2020-07-16 21:35:00 Emergency Edilma Lopez [facility] 1.2.840.114 350.1.13.10 4.2.7.2.686 [id number] 084 [id number] [facility] 2020-07-15 00:00:00 2020-07-15 00:00:00 Telephone Aristides Engel [facility] 1.2.840.114 350.1.13.10 4.2.7.2.686 [id number] 089 [id number] [facility] 2020-07-10 10:10:38 2020-07-11 14:26:09 Office Visit Gregorio Hanna David [facility] 1.2.840.114 350.1.13.10 4.2.7.2.686 [id number] 089 [id number] [facility] 2020-07-10 11:57:40 2020-07-10 12:12:[address] [facility] Aristides Engel [facility] 1.2.840.114 350.1.13.10 4.2.7.2.686 [id number] [facility] 2020-07-10 10:30:00 2020-07-10 10:30:00 Outpatient MEGHANA LAWTON [facility] [id number] [facility] 2020-07-10 00:00:00 2020-07-10 00:00:00 Case Management Beatriz Su [facility] 1.2.840.114 350.1.13.10 4.2.7.2.686 [id number] 089 [id number] [facility] 2020-07-10 00:00:00 2020-07-10 00:00:00 Case Management Beatriz Su [facility] 1.2.840.114 350.1.13.10 4.2.7.2.686 [id number] 089 [id number] [facility] 2020-07-09 00:00:00 2020-07-09 00:00:00 Case Management Lina Phelps [facility] 1.2.840.114 350.1.13.10 4.2.7.2.686 [id number] 089 [id number] [facility] 2020-07-09 00:00:00 2020-07-09 00:00:00 Case Management Lina Phelps [facility] 1.2.840.114 350.1.13.10 4.2.7.2.686 [id number] 089 [id number] [facility] 2020-04-28 06:12:39 2020-04-28 23:59:00 Hospital Encounter RushGoharish [facility] 1.2.840.114 350.1.13.10 4.2.7.2.686 [id number] [facility] 2020-02-26 00:00:00 2020-02-26 00:00:00 Telephone Lina Merritt [facility] 1.2.840.114 350.1.13.10 4.2.7.2.686 [id number] 089 [id number] [facility] 2020-02-15 00:00:00 2020-02-15 00:00:00 Telephone Lina Merritt [facility] 1.2.840.114 350.1.13.10 4.2.7.2.686 [id number] 089 [id number] [facility] 2020-01-30 00:00:00 2020-01-30 00:00:00 Letter (Out) [facility] 1.2.840.114 350.1.13.10 4.2.7.2.686 [id number] 089 [id number] [facility] 2020-01-16 00:00:00 2020-01-16 00:00:00 Telephone [facility] 1.2.840.114 350.1.13.10 4.2.7.2.686 [id number] 089 [id number] [facility] 2020-01-02 00:00:00 2020-01-02 00:00:00 Telephone [facility] 1.2.840.114 350.1.13.10 4.2.7.2.686 [id number] 089 [id number] [facility] 2019-12-12 00:00:00 2019-12-12 00:00:00 Telephone [facility] 1.2.840.114 350.1.13.10 4.2.7.2.686 [id number] 089 [id number] [facility] 2019-12-04 00:00:00 2019-12-04 00:00:00 Case Management [facility] 1.2.840.114 350.1.13.10 4.2.7.2.686 [id number] 089 [id number] [facility] 2019-09-21 00:00:00 2019-09-21 00:00:00 Telephone Codey De La Rosa [facility] 1.2.840.114 350.1.13.10 4.2.7.2.686 [id number] 089 [id number] [facility] 2019-09-06 00:00:00 2019-09-06 00:00:00 Orders Only Doctor Unassigned, [place] [facility] 1.2.840.114 350.1.13.10 4.2.7.2.686 [id number] 009 [id number] [facility] 2019-05-22 00:00:00 2019-05-22 00:00:00 Case Management Beatriz Su [facility] 1.2.840.114 350.1.13.10 4.2.7.2.686 [id number] 089 [id number] [facility] Results Test Description Test Time Test Comments Results Result Co mments Source [facility] WITH [id number] 15:03:41* Test Item Value Reference Range Interpretation [...] 32.8 g/dL 31.2-35.0 RDW-SD (test code = 09045-5) 43.3 fL 38.5-51.6 RDW-CV (test code = 788-0) 13.1 % 12.1-15.4 PLT (test code = 777-3) 206 See_Comment [Automated messa ge] The system which generated this result transmitted reference range: 150 - 328 10*3/?L. The reference range was not used to interpret this result as normal/abnormal. MPV (test code = 79652-8) 8.6 fL 9.8-13.0 L NRBC/100 WBC (test code = 7115853938) 0.0 See_Comment [Automated me ssage] The system which generated this result transmitted reference range: 0.0 - 10.0 /100 WBCs. The reference range was not used to interpret this result as normal/abnormal. NRBC x10^3 (test code = 8760200864) See_Comment [Automated messa ge] The system which generated this result transmitted reference range: 10*3/?L. The reference range was not used to interpret this result as normal/abnormal. GRAN MAT (NEUT) % (test code = 770-8) 65.4 % IMM GRAN % (test code = 4022688000) 0.40 % LYMPH % (test code = 736-9) 23.4 % MONO % (test code = 5905-5) 9.7 % EOS % (test code = 713-8) 0.8 % BASO % (test code = 706-2) 0.3 % GRAN MAT x10^3(ANC) (test code = 7074546221) 5.00 10*3/uL 1.99-6.95 IMM GRAN x10^3 (test code = 2638281285) 0.03 10*3/uL 0.00-0.06 LYMPH x10^3 (test code = 731-0) 1.79 10*3/uL 1.09-3.23 MONO x10^3 (test code = 742-7) 0.74 10*3/uL 0.36-1.02 EOS x10^3 (test code = 711-2) 0.06 10*3/uL 0.06-0.53 BASO x10^3 (test code = 704-7) 0.01-0.09 Lab Interpretation (test code = 31623-0) [facility] (72813)2022-08-09 01:15:43* Test Item Value Reference Range Interpretation Comme nts NA (test code = 5824543481) 137 mmol/L 135-145 K (test code = 9934726578) 3.9 mmol/L 3.5-5.0 CL (test code = 7411155497) 104 mmol/L 98-108 CO2 TOTAL (test code = 7096237809) 26 mmol/L 23-31 AGAP (test code = 2238639430) 2-16 BUN (test code = 9233228075) 15 mg/dL 7-23 GLUCOSE (test code = 0747777881) 97 mg/dL 70-110 CREATININE (test code = 0185976285) 0.97 mg/dL 0.60-1.25 TOTAL BILI (test code = 5615041589) 0.5 mg/dL 0.1-1.1 CALCIUM (test code = 2283988278) 9.1 mg/dL 8.6-10.6 T PROTEIN (test code = 6162917547) 6.7 g/dL 6.3-8.2 ALBUMIN (test code = 3815778399) 4.0 g/dL 3.5-5.0 ALK PHOS (test code = 9434535901) 101 U/L 34-122 ALTv (test code = 1742-6) 20 U/L 5-50 AST(SGOT) (test code = 4887349558) 22 U/L 13-40 eGFR (test code = 6574224590) mL/min/1.73m2 IRA (test code = IRA) Association [...] or urine or abnormalities in imaging tests). [facility] WITH [id number] 01:01:40* Test Item Value Reference Range Interpretation Comme nts WBC (test code = 6690-2) See_Comment [Automated Gleama ge] The system which generated this result transmitted reference range: 4.20 - 10.70 10*3/?L. The reference range was not used to interpret this result as normal/abnormal. RBC (test code = 789-8) See_Comment L [Automated Gleama ge] The system which generated this result [...] 33.3 g/dL 31.2-35.0 RDW-SD (test code = 08873-7) 40.3 fL 38.5-51.6 RDW-CV (test code = 788-0) 12.3 % 12.1-15.4 PLT (test code = 777-3) See_Comment [Automated Gleama ge] The system which generated this result transmitted reference range: 150 - 328 10*3/?L. The reference range was not used to interpret this result as normal/abnormal. MPV (test code = 66044-4) 8.9 fL 9.8-13.0 L NRBC/100 WBC (test code = 5504211765) See_Comment [Automated SueEasy ssage] The system which generated this result transmitted reference range: 0.0 - 10.0 /100 WBCs. The reference range was not used to interpret this result as normal/abnormal. NRBC x10^3 (test code = 1351364177) See_Comment [Automated messa ge] The system which generated this result transmitted reference range: 10*3/?L. The reference range was not used to interpret this result as normal/abnormal. GRAN MAT (NEUT) % (test code = 770-8) 47.8 % IMM GRAN % (test code = 4786010470) 0.20 % LYMPH % (test code = 736-9) 32.7 % MONO % (test code = 5905-5) 16.0 % EOS % (test code = 713-8) 2.9 % BASO % (test code = 706-2) 0.4 % GRAN MAT x10^3(ANC) (test code = 3974802923) 2.14 10*3/uL 1.99-6.95 IMM GRAN x10^3 (test code = 4656292678) 0.00-0.06 LYMPH x10^3 (test code = 731-0) 1.47 10*3/uL 1.09-3.23 MONO x10^3 (test code = 742-7) 0.72 10*3/uL 0.36-1.02 EOS x10^3 (test code = 711-2) 0.13 10*3/uL 0.06-0.53 BASO x10^3 (test code = 704-7) 0.01-0.09 Lab Interpretation (test code = 66020-0) Abnormal [facility] Whole Utuiz3257-69-19 00:47:12* Test Item Value Reference Range Interpretation Comme nts LACTIC ACID (test code = 9829369816) 1.05 mmol/L 0.50-2.20 Lab Interpretation (test cod e = 13879-6) Normal [facility] (COVID-19), RT-PCR/BQS1884-05-55 15:38:41* Test Item Value Reference Range Interpretation Comments SARS-CoV-2 INTERPRETATION (test code = 44144) NEGATIVE SEE NOTE SARS-CoV-2 R NA NOT [...] prevalence is high. SOURCE (test code = 13063) NASOPHARYNGEAL Note: Methodolog y is Geronimo Jake Real-Time RT-PCR. The expected result or reference range is NEGATIVE (Not Detected). For more information regarding COVID-19 testing to include clinicalinformation, methodology detail, intended use, FDA authorization andrecommended fact sheets for patients or healthcare providers, see [facility] Announcement: SARS-CoV-2 (COVID-19) by NAAT at URL below (note,fact sheets are provided by method given in report:https://[email or web address].com/clinicians/cl ient-communications/ Alternatively, see downloadable PDF fact sheet at:https://www.happyview/LPJVP-91-WB-PCR UNLESS OTHERWISE INDICATED, ALL TESTING PERFORMED [facility] [address] [place] [address] TANBARK PEELER: SANJUANA BANEGAS M.D. CLIA NUMBER [id number] [facility] [place]. [id number] Notes Date/Time Note Provider Source 2023-12-14 11:48:34 WjkHTO2jezZ6iPESigJ8 NLqzUI7s7YW2 1fskeNZ1eC3dRQOd3JLJ9i0SsKkXvRjW 5657-17-20Y95:48:34 LVM reminder for 4/4 therapy session. Phone number provided for possible rescheduling 15 min taken 11976-4Azcqtjhpa encounter XedjQE1357-89-48G20:49:33Telepho ne encounter NoteTXT1.2.840.143903.1.13.104.2 .7.2.633379|8484465465AZGmyjcbpw e for patient mhaz18041-1ZhdwKTUOQFUCWAWBtkiwx lars C-CDA narrative xlej912338004Yogukk R [place]co RNUT[address]TXTX[address] 7390XNEGYGLXFRSORLBIHYYXSR1398-2 12-13T11:49:331.2.840.786849.1.72 .3.15|1.2.840.366087.1.13.104.2. 7.2.727879_[id number] Lina Phelps RN [facility] 2023-11-24 16:17:34 H6v+gsA7WJiLFGjAgOGm X+xQHefmZwW6 pNQ34635JrGajrMkWtnvQbTyBhzj9fw4 4545-98-37Z67:17:34 I texted patient link for doximity. The patient did not connect to call. 96284-0Qpustmvwf encounter KwlrRQ1072-93-48K92:18:16Telepho ne encounter NoteTXT1.2.840.020807.1.13.104.2 .7.2.443882|4724216965OJXdnampdn e for patient jnde75302-1TdpoJPFBRCVFCKYCfezsv lars C-CDA narrative text[address]TX[address] 4779AKBTTUBMWAIVHYAJWBGWGE3205-0 11-23T16:18:161.2.840.640309.1.72 .3.15|1.2.840.991065.1.13.104.2. 7.2.727879_[id number] [facility] 2023-11-24 11:07:21 lTwssy7ium0A8CdjjZVt 0FOtHRbydPku 2ZyEgkRitAMbNzfunng240yHrz3GYHrn 8283-02-28F73:07:21 I was able to get in touch with the patient and we rescheduled for 4pm today over video. 14324-8Tdmhbotlx encounter InwcWB3823-29-22K84:08:04Telepho ne encounter NoteTXT1.2.840.431703.1.13.104.2 .7.2.696309|[id number] e for patient xrmo65572-5XvdzVJQJOGOKZDPCcdibwSeniorLiving.Net[address] 3336IFCIRPFTXNZQDYBUAQKPZT0491-2 1:08:041.2.840.268453.1.72 .3.15|1.2.840.537911.1.13.104.2. 7.2.727879_[id number] [facility] 2023-11-24 08:22:14 ubNfBXNwH1QuDO0lzJ0V I/kxPmHCi+0S P+waSolPp2ZH+LdYfquIQE0eR2Hz6iZU 1949-62-67A23:22:14 I attempted to text patient at scheduled appt time and no answer. I also called his phone with no answer. I will try to call back at 11am to see if I can connect with him. 68446-6Imwcpbwzi encounter PxbiZH0515-46-04G77:23:16Telepho ne encounter NoteTXT1.2.840.723854.1.13.104.2 .7.2.795485|[id number] e for patient rhry60933-3YjoyEBEDVNUHXOXEcodds lars C-CDA narrative text[address] 7569FIHKXXJTQKASDJLOUZANFG3288-9 1408:23:161.2.840.575149.1.72 .3.15|1.2.840.869307.1.13.104.2. 7.2.727879_[id number] [facility] 2023-10-21 15:20:40 y9MrBiwFZoCq3WktuThk CUWT3WjFVMAz zNASSBwMbQqg5edWqSgmF5ceVD+TVGBt 9880-80-33W07:20:40 Client confirms 10/20 teleheatlh therapy session. EMR reviewed for eligibility and case management needs. 30 min taken 30273-7Bglqnqgrq encounter GtyrMB4466-70-94K51:23:13Telepho ne encounter NoteTXT1.2.840.088099.1.13.104.2 .7.2.572397|[id number] e for patient frzx78569-5YcfcDKESICZOKEBZhvwnz lars C-CDA narrative uffv587251946UdpluzLina Phelps RN[address] 8830NECHHXOKHIZFICXLVNXBZM3548-0 5:23:131.2.840.478404.1.72 .3.15|1.2.840.259827.1.13.104.2. 7.2.727879_[id number] Lina Phelps RN [facility] 2023-10-14 11:28:27 HWTitSbIB3B9Ec+YGnUm JhlX4eEVxey4 raUw5O9pWfl7CoJQj+Q29Saj0ylcJAvf 9590-77-10L34:28:27 RW therapist informed CM that client requests to speak with a case manger. CM called and LVM. 30 min taken 84381-4Tvmakxdiw encounter VqylYF2614-01-85M91:29:28Telepho ne encounter NoteTXT1.2.840.977416.1.13.104.2 .7.2.494271|6572327148NFRhqrgznk e for patient nldd62464-1SeihVPXIJGOHTWCLznpvl lars C-CDA narrative [id number] R [place] [address] 5801WGNVOBGNRWXAHUBOEZMYMW5902-3 10-14T11:29:281.2.840.972026.1.72 .3.15|1.2.840.935009.1.13.104.2. 7.2.727879_[id number] Lina Phelps RN [facility] 2023-10-12 13:24:55 pfrHMjYdPZIED3NdIqJu JtfPi9W26TsL gw9MQ+Ae/j6U64phUYTnOMG7pAtMUWvH 1450-62-25Q67:24:55 Client confirmed 2/ therapy session. He declined telehealth because he says that he needs to come into have labs drawn anyway. 30 min taken 39720-0Dkqyxtphh encounter VvjnHU9742-48-74O33:26:13Telepho ne encounter NoteTXT1.2.840.689929.1.13.104.2 .7.2.132461|[id number] e for patient fcah21230-6WokpZVDMQVIOVFNTayuov lars C-CDA narrative [id number] Phelps RN[address]TX[address] 4083LCYRODBBJCRKVMUYQWRQDK1144-4 :26:131.2.840.796687.1.72 .3.15|1.2.840.876067.1.13.104.2. 7.2.727879_[id number] Lina Phelps CLARA [facility] 2023-10-06 13:52:04 zdhs+geHeXV3sfuLlEZt pbXSi/QBb9iJ WWXnKZoUm5YtEwI8mUzVwzSdTGC6IGC0 7224-74-38V33:52:04 Called patient to schedule appointment. Lvm stating date/time and to call back if it didn't work for him. 27703-4Rchiuvahv encounter SuuqIR1608-10-37W42:52:42Telepho ne encounter NoteTXT1.2.840.809884.1.13.104.2 .7.2.909792|[id number] e for patient juoq50875-6StzcUCMDVODVVLKHblwof lars NASSAR narrative [id number] A Shumaker[address] JodkValfkdcbpZwxrwhwowZILO975598 4314WFBOJUVCUPLFFBSKKZPCEU1984-9 3:52:421.2.840.158281.1.72 .3.15|1.2.840.959072.1.13.104.2. 7.2.727879_[id number] Chao Luna [facility] 2023-10-06 11:32:47 SEJbLFt4LyfYiVW3fhVP 6ebj2j5cIw3j +6qhtkN3BcCKKO7TSg2jrRdqGKYQWKbk 0568-15-13W77:32:47 Adeel Antoine is a 53 year old malePatient is needing to r/s appts missed on 125. Please contact patient. [phone] (home) 52979-4Fkyhlqres encounter MinqKU5334-46-40R00:34:11Telepho ne encounter NoteTXT1.2.840.611106.1.13.104.2 .7.2.413746|[id number] e for patient ymfh94939-8QdwmBMDUNYPCQDFRohujx lars C-CDA narrative qezg99201399Ksnxxzb [address]TX[address] 7019OECVTYMBSFYOHWKMJFETSB0303-9 10-06T11:34:111.2.840.644715.1.72 .3.15|1.2.840.568711.1.13.104.2. 7.2.727879_[id number] Jovana Simba [facility] 2023-10-05 11:34:59 jcyGWJ+VcXLshRtvqVqH GqaLG0eVxR94 vAKMsDNRzRMCKk4h77Qo/U/eIVQn2/s/ 6256-70-05G15:34:59 LVM for client as reminder for 10/05 therapy visit. Enrollment acuity needs to be completed. 30 min taken 38043-9Wlmvvhffk encounter NdbrWT7405-69-50K63:37:02Telepho ne encounter NoteTXT1.2.840.898175.1.13.104.2 .7.2.281359|[id number] e for patient wlam99955-8GrwqMPPDBIZSRKVJbvykk lars C-CDA narrative [id number] R [place] [address]TX[address] 4909OEDATEUXDBZTSRQFWQOPDR0118-8 1-24T11:37:021.2.840.537355.1.72 .3.15|1.2.840.989718.1.13.104.2. 7.2.727879_[id number] Lina Phelps RN [facility] 2023-04-14 01:15:20 aQQ1A/1mQgX7pxRt+gFC 1YAIM3rTvu7m YPB22ADykT35lkFCi2RVzcQbOHu5LQIP 4521-13-71P32:15:20 Pt discharged home. Given all education and information regarding pain management; prescription use; s/s of worsening condition as well as specialty follow up importance. Pt verbalized understanding. Alert and ambulatory to pov with mother. 28035-8Uvqhijpey department JshcMJ3254-14-59L16:16:08[facility] NoteTXT1.2.840.991194.1.13.104.2 .7.2.601260|[id number] e for patient [id number] A Paul RN[address] ItraYpuxgxieuXdvwmqxycEQBM095236 0338MCRFEBQNPZNFCNNRWGLWTM4201-7 04-14T01:16:081.2.840.104953.1.72 .3.15|1.2.840.977716.1.13.104.2. 7.2.727879_[id number] Vanessa Cuevas RN [facility] 2023-04-13 22:54:35 V9rx5mRZvDzGCow1zJTc YF3bTR7dMLR8 9QV12AU0YBWPvHWeS9gao22WMV+cdCSX 8814-17-27R81:54:35 Pt sleeping no distress, mom at bedside, report to Brenda ELIZABETH 17459-3Qhtohljoc department IacbWN9982-33-18E10:55:03[facility] NoteTXT1.2.840.753567.1.13.104.2 .7.2.351329|[id number] e for patient [id number] M. Barton RN[address]TX[address] 9395DWXZNOSSMNIWZQWINXOHDK0546-8 04-13T22:55:031.2.840.834119.1.72 .3.15|1.2.840.511673.1.13.104.2. 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 Pt reports being HIV + and only took those med before coming. Rates pain 10/10 and reports it shooting to groin area. Also report blood in urine x1. 92418-2Kpumwyfwo department Triage yahrNF9790-69-47C29:14:55[facility] Triage noteTXT1.2.840.654956.1.13.104.2 .7.2.853114|[id number] e for patient kliu79505-4Gxylcschy department [id number] L Williams RN[address]TXTX[address] 1635KNHPUJDASLWRFXTOHLTFBP0328-6 04-13T21:14:551.2.840.405169.1.72 .3.15|1.2.840.082933.1.13.104.2. 7.2.727879_[id number] Galina Cartagena RN [facility]"
[2023-12-19] MEDS ORDERED: NA CHLORIDE 0.9% 1,000 ML ONE (20:09)
--- NOTE | 2023-12-19 21:19 | RAD REPORT ---
EXAM DESCRIPTION: CT - Head Brain Wo Cont - 12/19/2023 9:13 pm CLINICAL HISTORY: SEIZURE Headache, drowsiness COMPARISON: <Comparisons> TECHNIQUE: All CT scans are performed using dose optimization technique as appropriate and may inclu de automated exposure control or mA/KV adjustment according to patient size. FINDINGS: No intracranial hemorrhage, hydrocephalus or extra-axial fluid collection.No areas of brai n edema or evidence of midline shift. Moderate mucosal thickening left maxillary sinus. The calvarium is intact. IMPRESSION: No acute intracranial abnormality.
--- NOTE | 2023-12-19 21:45 | RAD REPORT ---
EXAM DESCRIPTION: CT - C Spine Wo Con - 12/19/2023 9:36 pm CLINICAL HISTORY: PAIN Trauma, neck injury COMPARISON: <Comparisons> FINDINGS: The cervical vertebral body heights and disc spaces are maintained. Mild degenerative smith ges are present throughout the cervical spine, greatest inferiorly. No evidence of acute cervical spine fracture or subluxation. Prevertebral soft tissues are normal in thickness. IMPRESSION: Negative for acute cervical spine abnormality. All CT scans are performed using dose optimization technique as appropriate and may include automated exposure control or mA/KV adjustment according to patient size.
[2023-12-19 22:01] LABS: Absolute Eosinophils 0.1 K/uL (0-0.5); Absolute Lymphocytes (CBC) 1.7 K/uL (0.7-4.9); Absolute Monocytes 0.6 K/uL (0.1-1.3); Absolute Neutrophil 3.6 K/uL (1.8-8.0); Basophils % 0.3 % (0-1.3); Hemoglobin 13.9 g/dL (13.6-17.9); Lymphocytes % 28.5 % (15.3-44.8); MCH 30.2 pg (27.0-35.0); MCHC 33.9 g/dL (32.0-36.0); MPV 6.6 fL (7.6-11.3); Monocytes % 9.7 % (3.3-12.3); Neutrophils % 59.5 % (41.7-73.7); Nucleated Red Blood Cells % 0.3 % (0-0); Platelets 217 thou/uL (152-406); RBC Red Blood Cell Count 4.61 M/uL (4.33-5.43); Red Cell Distribution Width 14.1 % (12.1-15.2)
[2023-12-19 22:19] LABS: PTT, Activated Partial Thromb 30.6 SECONDS (24.3-36.9); Protime INR 1.19
[2023-12-19 22:29] LABS: ALT/SGPT 25 U/L (16-61); AST/SGOT 25 U/L (15-37); Albumin 3.5 g/dL (3.4-5.0); Albumin/Globulin Ratio 0.8 (1.1-1.8); Alkaline Phosphatase 106 U/L (45-117); Anion Gap 6.9 mEq/L (5.0-15.0); BUN Blood Urea Nitrogen 22 mg/dL (7-18); Bicarbonate 29 mEq/L (21-32); Bilirubin Direct 0.1 mg/dL (0-0.2); Bilirubin Indirect, Calculated 0.3 mg/dL (0.2-0.8); Bilirubin Total 0.4 mg/dL (0.2-1.0); Globulin 4.2 g/dL (2.3-3.5); Glomerular Filtration Rate 91 ml/min (=/>90); Glucose Level 94 mg/dL (74-106); Potassium 3.9 mEq/L (3.5-5.1); Protein, Total 7.7 g/dL (6.4-8.2); Sodium Level 135 mEq/L (136-145)
--- NOTE | 2023-12-19 23:09 | ER ---
Nurse's Notes [facility] Name: Adeel Antoine Age: 53 yrs Sex: Male : 1970 Arrival Date: 12/19/2023 Time: 19:34 Bed 13 Private MD: Diagnosis: Other seizures Presentation: 12/18 19:45 Chief complaint: EMS states: Seizure in [employer], rolled off bunk. Still seizing on vc1 arrival. 2 mg Ativan administered IM. Coronavirus screen: At this time, the client does not indicate any symptoms associated with coronavirus-19. Ebola Screen: Patient negative for fever greater than or equal to 101.5 degrees Fahrenheit, and additional compatible Ebola Virus Disease symptoms Patient denies exposure to infectious person. Patient denies travel to an Ebola-affected area in the 21 days before illness onset. No symptoms or risks identified at this time. Initial Sepsis Screen: Does the patient meet any 2 criteria? No. Patient's initial sepsis screen is negative. Does the patient have a suspected source of infection? No. Patient's initial sepsis screen is negative. Risk Assessment: Do you want to hurt yourself or someone else? Patient reports no desire to harm self or others. Onset of symptoms was December 19, 2023. 19:45 Method Of Arrival: EMS: [facility] vc1 19:45 Acuity: JEREMIAS 4 vc1 Triage Assessment: 21:00 General: Appears in no apparent distress. comfortable, Behavior is calm, cooperative, vc1 appropriate for age. Pain: Complains of pain in right frontal area and right side of the back of head Pain does not radiate. Pain currently is 4 out of 10 on a pain scale. EENT: No deficits noted. No signs and/or symptoms were reported regarding the EENT system. Neuro: Seizure activity reported prior to arrival. Neuro: Level of Consciousness is awake, alert, obeys commands, Oriented to person, place, time, situation, Appropriate for age. Cardiovascular: Capillary refill < 3 seconds. Respiratory: Airway is patent Respiratory effort is even, unlabored, Respiratory pattern is regular, symmetrical. 21:00 General: Attempted to start IV, patient has poor venous access. Lab will attempt to vc1 collect blood.. GI: No deficits noted. No signs and/or symptoms were reported involving the gastrointestinal system. : No deficits noted. No signs and/or symptoms were reported regarding the genitourinary system. Derm: Skin scars and lumps on bilateral arms. Historical: - Allergies: 20:05 Codeine; vc1 - PMHx: 20:05 HIV; Kidney stones; vc1 - PSHx: 20:05 Appendectomy; vc1 - Immunization history:: Client reports receiving the 2nd dose of the Covid vaccine, Flu vaccine is up to date. 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 - Social history:: Smoking status: Patient reports the use of cigarette tobacco products, smokes one-half pack cigarettes per day. Screenin:11 [facility] ED Fall Risk Assessment (Adult) History of falling in the last 3 months, vc1 including since admission No falls in past 3 months (0 pts) Confusion or Disorientation No (0 pts) Intoxicated or Sedated No (0 pts) Impaired Gait No (0 pts) Mobility Assist Device Used No (0 pt) Altered Elimination No (0 pt) Score/Fall Risk Level 0 - 2 = Low Risk Oriented to surroundings, Maintained a safe environment, Educated pt \T\ family on fall prevention, incl call for assistance when getting out of bed. Abuse screen: Denies threats or abuse. Nutritional screening: No deficits noted. Tuberculosis screening: No symptoms or risk factors identified. Assessment: 21:00 General: See triage assessment. vc1 23:00 Reassessment: No changes from previously documented assessment. Patient and/or family vc1 updated on plan of care and expected duration. Pain level reassessed. Patient is alert, oriented x 3, equal unlabored respirations, skin warm/dry/pink. Vital Signs: 19:45 BP 96 / 77; Pulse 87; Resp 18; Pulse Ox 97% ; Weight 81.65 kg; Height 6 ft. 0 in. ; vc1 Pain 4/10; 22:00 BP 104 / 88; Pulse 66; Resp 16; Pulse Ox 96% ; vc1 23:21 BP 92 / 64; Pulse 78; Resp 16; Temp 98; Pulse Ox 96% ; vc1 19:45 Body Mass Index 24.41 (81.65 kg, 182.88 cm) vc1 19:45 Pain Scale: Adult vc1 ED Course: 19:39 Patient arrived in ED. vc1 19:44 Osvaldo Schmidt PA is PHCP. cp 19:44 Bailey, Jarvis, MD is Attending Physician. cp 20:00 Patient has correct armband on for positive identification. Bed in low position. Call vc1 light in reach. Pulse ox on. NIBP on. [employer] officer at bedside. 20:00 Warm blanket given. vc1 20:05 Triage completed. vc1 20:06 Arm band placed on right wrist. vc1 21:15 Head Brain Wo Cont In Process Unspecified. EDMS 21:25 EKG done, by vehicle technician. vk 21:30 Missed attempt(s): 22 gauge in left wrist. vc1 21:35 CT C Spine In Process Unspecified. EDMS 22:11 Maria Elena Rosa, CLARA is Primary Nurse. vc1 22:23 PO fluids given. Ney given. vc1 23:08 Alon Hernandez MD is Referral Physician. cp 23:22 No provider procedures requiring assistance completed. Patient did not have IV access vc1 during this emergency room visit. 23:23 Provided Education on: follow up with neurology. vc1 Administered Medications: 22:18 Not Given (No IV accesss): ns 0.9% 1000 ml IV at 999 ml/hr Per protocol; 1000 mL bolus vc1 23:20 CANCELLED (Other Intervention Used): [id number] mg IV at calculated rate once vc1 23:20 Drug: Keppra PO 1000 mg PO once Route: PO; vc1 23:21 Follow up: Response: Medication administered at discharge. vc1 Medication: 22:17 VIS not applicable for this client. vc1 Outcome: 23:08 Discharge ordered by . cp 23:23 Discharged to Law Enforcement vc1 23:23 Condition: good 23:23 Discharge instructions given to patient, Instructed on discharge instructions, follow up and referral plans. medication usage, Demonstrated understanding of instructions, follow-up care, medications, Prescriptions given X 1, 23:23 Patient left the ED. vc1 Signatures: Dispatcher [employer] EDVT Osvaldo Schmidt PA PA cp Maria Elena Rosa, CLARA RN vc1 Marisel Lloyd Corrections: (The following items were deleted from the chart) 21:15 21:00 In radiology for Head C Spine MPR Wo Con+CT.RAD.BRZ. EDMS EDMS 22:17 22:12 General: Appears in no apparent distress. comfortable, Behavior is calm, vc1 cooperative, appropriate for age, vc1 : 22:12 Pain: Complains of pain in right frontal area and right side of the back of head vc1 Pain does not radiate. Pain currently is 4 out of 10 on a pain scale. vc1 22:17 22:12 EENT: No deficits noted. No signs and/or symptoms were reported regarding the 1 EENT system. vc1 22: 22:12 Neuro: Seizure activity reported prior to arrival. vc1 vc1 : 22:12 Cardiovascular: Capillary refill < 3 seconds vc1 vc1 : 22:12 Neuro: Level of Consciousness is awake, alert, obeys commands, Oriented to vc1 person, place, time, situation, Appropriate for age vc1 : 22:12 Respiratory: Airway is patent Respiratory effort is even, unlabored, Respiratory vc1 pattern is regular, symmetrical, vc1
--- NOTE | 2023-12-19 23:09 | EDPHYS ---
Physician Documentation [facility] Name: Adeel Antoine Age: 53 yrs Sex: Male : 1970 Arrival Date: 12/19/2023 Time: 19:34 Bed 13 Private MD: ED Physician Jarvis Bailey HPI: 12/18 19:48 This 53 yrs old Male presents to ER via Unassigned with complaints of Seizure. cp 19:48 The patient presents after having a single isolated seizure, that lasted an unknown cp period of time. Character of seizure(s): Motor activity: generalized, shaking all over, metallic taste in mouth, blurry vision and pain all over. Seizure onset: today. Seizure Hx: known history of seizures. prescribed Dilantin in the past but been off medication for about 2 years. patient in custody of law enforcement and reports having seizure while in custody today. Historical: - Allergies: 20:05 Codeine; vc1 - PMHx: 20:05 HIV; Kidney stones; vc1 - PSHx: 20:05 Appendectomy; vc1 - Immunization history:: Client reports receiving the 2nd dose of the Covid vaccine, Flu vaccine is up to date. 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 - Social history:: Smoking status: Patient reports the use of cigarette tobacco products, smokes one-half pack cigarettes per day. ROS: 19:55 Constitutional: Negative for body aches, chills, fever, poor PO intake, cp 19:55 Eyes: Positive for blurry vision, Negative for pain, redness, cp 19:55 Cardiovascular: Negative for chest pain, palpitations, 19:55 Respiratory: Negative for cough, shortness of breath, wheezing, 19:55 Abdomen/GI: Negative for abdominal pain, vomiting, diarrhea, constipation, 19:55 Neuro: Positive for history of seizure, Negative for altered mental status, headache, weakness, 19:55 All other systems are negative, Exam: 20:00 Constitutional: The patient appears in no acute distress, alert, awake, cp non-diaphoretic, non-toxic, well developed, well nourished, anxious, 20:00 Head/Face: Normocephalic, atraumatic. cp 20:00 Eyes: Periorbital structures: appear normal, Pupils: equal, round, and reactive to light and accomodation, Extraocular movements: intact throughout, Conjunctiva: normal, no exudate, no injection, Sclera: no appreciated abnormality, Lids and lashes: appear normal, bilaterally, 20:00 ENT: External ear(s): are unremarkable, Nose: is normal, Mouth: Lips: moist, Oral mucosa: pink and intact, moist, Posterior pharynx: Airway: no evidence of obstruction, patent, 20:00 Neck: ROM/movement: pain, that is mild, with any movement, limited range of motion, is not appreciated, Meningeal signs: are not present, nuchal rigidity, is not appreciated, 20:00 Chest/axilla: Inspection: normal, Palpation: is normal, no crepitus, no tenderness, 20:00 Cardiovascular: Rate: normal, Rhythm: regular, Edema: is not appreciated, JVD: is not appreciated, 20:00 Respiratory: the patient does not display signs of respiratory distress, Respirations: normal, no use of accessory muscles, no retractions, labored breathing, is not present, Breath sounds: are clear throughout, no decreased breath sounds, no stridor, no wheezing, 20:00 Abdomen/GI: Inspection: abdomen appears normal, Palpation: abdomen is soft and non-tender, 20:00 Skin: cellulitis, is not appreciated, no rash present. 20:00 Neuro: Orientation: to person, place \T\ time. Mentation: is normal, Motor: moves all fours, strength is normal, Sensation: is normal, 21:27 ECG was reviewed by the Attending Physician. cp Vital Signs: 19:45 BP 96 / 77; Pulse 87; Resp 18; Pulse Ox 97% ; Weight 81.65 kg; Height 6 ft. 0 in. ; vc1 Pain 4/10; 22:00 BP 104 / 88; Pulse 66; Resp 16; Pulse Ox 96% ; vc1 23:21 BP 92 / 64; Pulse 78; Resp 16; Temp 98; Pulse Ox 96% ; vc1 19:45 Body Mass Index 24.41 (81.65 kg, 182.88 cm) vc1 19:45 Pain Scale: Adult vc1 MDM: 19:44 Patient medically screened. cp 21:00 Differential diagnosis: cerebral vascular accident, drug overdose, cardiac arrhythmia, cp seizure. 23:07 Data reviewed: vital signs, nurses notes, lab test result(s), EKG, radiologic studies, cp CT scan. 23:07 I considered the following discharge prescriptions or medication management in the emergency department Medications were administered in the Emergency Department. See MAR. Independent interpretation of the following test(s) in the Emergency Department EKG: See my EKG interpretation above. Care significantly affected by the following chronic conditions: HIV. Counseling: I had a detailed discussion with the patient and/or guardian regarding the historical points, exam findings, and any diagnostic results supporting the discharge/admit diagnosis, lab results, radiology results, the need for outpatient follow up, a neurologist, to return to the emergency department if symptoms worsen or persist or if there are any questions or concerns that arise at home. Response to treatment: the patient's symptoms have markedly improved after treatment, no seizure activity observed while monitoring patient in ED, and as a result, I will discharge patient. 12/18 19:51 Order name: Acetaminophen; Complete Time: 22:40 cp 12/18 19:51 Order name: Basic Metabolic Panel; Complete Time: 22:40 cp 12/18 22:40 Interpretation: Normal except: NA 135; BUN 22. cp 12/18 19:51 Order name: CBC with Diff; Complete Time: 22:40 cp 12/18 19:51 Order name: ETOH Level; Complete Time: 22:40 cp 12/18 19:51 Order name: Hepatic Function; Complete Time: 22:40 cp 12/18 19:51 Order name: PT-INR; Complete Time: 22:40 cp 12/18 19:51 Order name: Ptt, Activated; Complete Time: 22:40 cp 12/18 19:51 Order name: Salicylate cp 12/18 21:15 Order name: Head Brain Wo Cont; Complete Time: 22:40 EDMS 12/18 21:26 Order name: CT C Spine; Complete Time: 22:40 cp 12/18 19:51 Order name: EKG - Nurse/Tech; Complete Time: 21:25 cp 12/18 19:51 Order name: Labs collected and sent; Complete Time: 22:19 cp EC:27 Rate is 85 beats/min. Rhythm is regular. ME interval is normal. QRS interval is normal. cp QT interval is normal. T waves are Inverted in leads aVL, aVR. Interpreted by me. Reviewed by me. Administered Medications: 22:18 Not Given (No IV accesss): ns 0.9% 1000 ml IV at 999 ml/hr Per protocol; 1000 mL bolus vc1 23:20 CANCELLED (Other Intervention Used): [id number] mg IV at calculated rate once vc1 23:20 Drug: Keppra PO 1000 mg PO once Route: PO; vc1 23:21 Follow up: Response: Medication administered at discharge. vc1 Disposition Summary: 12/19/23 23:08 Discharge Ordered Notes: Location: Home cp Problem: an acute exacerbation cp Symptoms: have improved cp Condition: Stable cp Diagnosis - Other seizures cp Followup: cp - With: Alon Hernandez MD - When: 2 - 3 days - Reason: Recheck today's complaints Discharge Instructions: - Discharge Summary Sheet cp - Seizure, Adult cp Forms: - Medication Reconciliation Form cp - Thank You Letter cp - Antibiotic Education cp - Prescription Opioid Use cp - Patient Portal Instructions cp - Leadership Thank You Letter cp Prescriptions: - Keppra 500 mg Oral tablet - take 1 tablet ORAL route every 12 hours; 30 tablet; Refills: 0, Product cp Selection Permitted Signatures: Dispatcher [employer] EDMS Osvaldo Schmidt PA PA cp Maria Elena Rosa RN RN vc1 Corrections: (The following items were deleted from the chart) 19:52 19:52 ACETAMINOPHEN+C.LAB.BRZ ordered. EDMS EDMS 19:52 19:52 BASIC METABOLIC PANEL+C.LAB.BRZ ordered. EDMS EDMS 19:52 19:52 CBC+H.LAB.BRZ ordered. EDMS EDMS 19:52 19:52 ETHANOL+C.LAB.BRZ ordered. EDMS EDMS 19:52 19:52 HEPATIC FUNCTION+C.LAB.BRZ ordered. EDMS EDMS 19:52 19:52 PROTIME (+INR)+COAG.LAB.BRZ ordered. EDMS EDMS 19:52 19:52 PTT, ACTIVATED+COAG.LAB.BRZ ordered. EDMS EDMS 19:52 19:52 SALICYLATE+C.LAB.BRZ ordered. EDMS EDMS 19:52 19:52 Urinalysis+U.LAB.BRZ ordered. EDMS EDMS 19:52 19:52 URINE DRUG SCREEN+UC.LAB.BRZ ordered. EDMS EDMS 21:14 19:51 Suicide Screening (Bryan) ordered. cp vc1 21:15 19:51 Head C Spine MPR Wo Con+CT.RAD.BRZ ordered. EDMS EDMS 22:19 19:51 IV Saline Lock ordered. cp vc1 23:20 22:41 Keppra IV 1000 mg IV at calculated rate once ordered. cp vc1 12/19 17:48 12/18 19:48 Seizure Hx: known history of seizures. prescribed Dilantin in the past but cp been off medication for about 2 years, cp 12/19 17:53 12/18 19:48 Character of seizure(s): Motor activity: generalized, shaking all over, cp metallic taste in mouth, blurry vision, cp
[2023-12-19] MEDS ORDERED: levETIRAcetam 500 MG TAB ONE (23:15)
[2023-12-20 05:03] VITALS: BP 92/64; TEMP 98; O2SAT 96
--- NOTE | 2023-12-20 16:16 | EKG ---
Test Date: 2023-12-19 Test Time: 21:21:26 Organizational Research Consultant: DONOVAN MEASUREMENT RESULTS: Intervals: Rate: 85 W[place]: 158 QRSD: 84 QT: 370 QTc: 440 [place]: P: 72 W[place]: 158 QRS: -53 T: 73 INTERPRETIVE STATEMENTS: Normal sinus rhythm Left anterior fascicular block Cannot rule out Inferior infarct (masked by fascicular block?), age undetermined Abnormal ECG Compared to ECG 11/03/2023 18:25:05 Left anterior fascicular block now present Myocardial infarct finding still present Electronically Signed On 12-20-23 16:14:30 CDT by Amari Felipe
== END 2023-12-19 23:23 | disposition home or self-care (01) ==
LOC: ER 19:34
DX: G40.89 Other seizures (principal); Z21 Asymptomatic human immunodeficiency virus [HIV] infection status; Z88.5 Allergy status to narcotic agent
CPT/HCPCS: 93005; 85025; 80048; 36415; 85610; 80076; 85730; 70450; 72125; 99284; 80143; 80179; 82077; J7030